=== PATIENT | female | born 1960 | race Caucasian/White ===

== ENCOUNTER → 2017-12-13 15:06 | Outpatient (CLI) | payer MEDICAID, SELFPAY ==
[2017-12-13 17:23] LABS: Absolute Lymphocyte Count 2.51 X10^3/ul (0.83-4.51); Absolute Neutrophil Count 2.4 X10^3/uL (2.0-7.7); Basophil# 0.03 X10^3/uL; Basophil% 0.5 % (0-1); Eosinophil# 0.28 X10^3/uL; Hematocrit 45.1 % (37-47); Hemoglobin 14.6 g/dl (12.0-15.0); Lymphocyte # 2.51 X10^3/ul (4.0); Lymphocyte % 45.1 % (19-41); Mean Corp Hgb Conc 32.4 g/gl (32-36); Mean Corpuscular Hgb 31.3 pg (27.0-32.0); Mean Corpuscular Volume 96.8 fL (81-99); Mean Platelet Vol. 11.8 fl (6.2-12.0); Monocyte# 0.38 X10^3/uL; Monocyte% 6.8 % (0-10); Neutrophil # 2.37 X10^3/uL (2.7-7.7); Neutrophil % 42.6 % (47-70); POSITIVE COUNT NO; POSITIVE DIFFERENTIAL NO; POSITIVE MORPHOLOGY NO; Platelet Count 169 K/mm3 (150-450); RBC Distribution Width CV 13.5 % (11.6-14.6); RBC Distribution Width SD 47.8 fl (35.1-43.9); Red Blood Count 4.66 M/mm3 (4.2-5.4); White Blood Count 5.6 K/mm3 (4.4-11.0)
[2017-12-13 17:58] LABS: ALB/GLOB Ratio 0.6 RATIO (0.9-2.4); AST(SGOT) 50 U/L (15-37); Alanine Aminotransfer ALT/SGPT 31 U/L (13-56); Albumin, Serum 2.9 g/dL (3.2-5.0); Alkaline Phosphatase 211 U/L (45-117); Anion Gap 8 (5-15); BUN 13 mg/dL (7-18); BUN/Creat Ratio 12.4 RATIO (10-20); Calcium,Total 8.8 mg/dL (8.5-10.1); Chloride 101 mmol/L (98-107); Creatinine, Serum 1.05 mg/dL (0.55-1.02); EST Glomerular Filtration Rate 57 mL/min (>60); Est Glom Filt Rate - Afr Amer 69 mL/min (>60); Globulin 5.2 g/dL (2.2-4.2); Glucose 141 mg/dL (74-106); Potassium 3.8 mmol/L (3.5-5.1); Protein, Total 8.1 g/dL (6.4-8.2); Sodium Level 136 mmol/L (136-145); Thyroid Stim Hormone (TSH) 0.67 uIU/mL (0.358-3.74)
[2017-12-13 20:49] LABS: Vitamin D,25 Hydroxy 4.6 ng/mL (19.95-100.01)
[2017-12-15 10:19] LABS: Hep C Antibodies 0.1 s/co ratio (0.0-0.9)
== END ==
PROVIDERS: Visit Provider Family Medicine Geriatric Medicine
DX: E55.9 Vitamin D deficiency, unspecified (principal); R53.83 Other fatigue; Z13.89 Encounter for screening for other disorder
CPT/HCPCS: 36415; 80053; 82306; 84443; 85025; 86803

== ENCOUNTER → 2018-05-15 09:40 | Outpatient (CLI) | payer MEDICAID, SELFPAY ==
--- NOTE | 2018-05-15 10:00 | MRI_ITS ---
STUDY: MRI LEFT ANKLE WITHOUT CONTRAST REASON FOR EXAM: Female, 58 years old. Charcot arthropathy possible AVN TECHNIQUE: Standardized fat and water weighted pulse sequences were obtained in all 3 orthogonal planes. COMPARISON: MRI foot July 14, 2017 FINDINGS: There is skin thickening and soft tissue swelling of the ankle and foot. There is transmetatarsal amputation of the fourth and fifth toes. There is moderate marrow edema of the distal tibia and fibula and talus and calcaneus and navicular and cuboid and cuneiform bones. There are curvilinear regions of subchondral diminished signal of the calcaneus and cuboid with possible avascular necrosis. There is osteochondral fracture of the anterior talus, series 11 image 09/26 Normal posterior tibialis tendon. Normal flexor digitorum longus tendon. Normal flexor hallucis longus tendon. There is a tenosynovitis of the peroneal tendons without a demonstrated tendon tear. Normal tibialis anterior tendon. Normal extensor hallucis longus tendon. Normal extensor digitorum longus tendons. Normal Achilles tendon and teno-osseous insertion. Normal plantar fascia. Normal plantar calcaneal tubercles. Normal intrinsic muscles of the rearfoot. Normal distal tibiofibular syndesmotic ligamentous complex. Normal lateral ligamentous complex. Normal subtalar ligaments and sinus tarsi. Normal deltoid ligamentous complexes. Normal plantar calcaneonavicular (spring) ligament. There is a joint effusion of the tibiotalar articulation with capsular distension. Normal talar dome. There is a joint effusion of the posterior subtalar articulation with capsular distension. There is a joint effusion of the talonavicular articulation with capsular distension. Normal calcaneocuboid articulation. Normal navicular-cuneiform articulations. MRI/Lower Ext Joint Only (Routine) IMPRESSION: Marrow edema at the ankle involving lower leg and hindfoot bones consistent with Charcot arthropathy. Contiguous spread osteomyelitis could be considered in the setting of infection. There is no abscess. There is osteochondral fracture of the talus. 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 Electronically Signed: Vince Jones MD at 17:16 EDT , Service support ,
== END ==
PROVIDERS: Family Provider Family Medicine Geriatric Medicine; PCP Family Medicine Geriatric Medicine; Visit Provider Podiatrist
DX: M87.872 Other osteonecrosis, left ankle (principal); M14.672 Charcot's joint, left ankle and foot
CPT/HCPCS: 73721

== ENCOUNTER → 2018-05-17 10:27 | Outpatient (CLI) | payer MEDICAID, SELFPAY ==
[2018-05-17 12:31] LABS: ALB/GLOB Ratio 0.5 RATIO (0.9-2.4); AST(SGOT) 38 U/L (15-37); Alanine Aminotransfer ALT/SGPT 22 U/L (13-56); Albumin, Serum 2.4 g/dL (3.2-5.0); Alkaline Phosphatase 267 U/L (45-117); Anion Gap 7 (5-15); BUN 10 mg/dL (7-18); BUN/Creat Ratio 11.7 RATIO (10-20); Calcium,Total 8.8 mg/dL (8.5-10.1); Chloride 100 mmol/L (98-107); Creatinine, Serum 0.86 mg/dL (0.55-1.02); EST Glomerular Filtration Rate 72 mL/min (>60); Est Glom Filt Rate - Afr Amer 87 mL/min (>60); Globulin 4.7 g/dL (2.2-4.2); Glucose 285 mg/dL (74-106); Potassium 3.5 mmol/L (3.5-5.1); Protein, Total 7.1 g/dL (6.4-8.2); Sodium Level 137 mmol/L (136-145)
[2018-05-17 12:34] LABS: Erythrocyte Sedimentation Rate 23 mm/hr (0-30)
[2018-05-17 12:37] LABS: Absolute Lymphocyte Count 2.18 X10^3/ul (0.83-4.51); Absolute Neutrophil Count 3.4 X10^3/uL (2.0-7.7); Basophil# 0.05 X10^3/uL; Basophil% 0.8 % (0-1); Eosinophil# 0.35 X10^3/uL; Eosinophils% 5.4 % (0-5); Hematocrit 40.2 % (37-47); Hemoglobin 13.4 g/dl (12.0-15.0); Lymphocyte # 2.18 X10^3/ul (4.0); Lymphocyte % 33.8 % (19-41); Mean Corp Hgb Conc 33.3 g/gl (32-36); Mean Corpuscular Hgb 30.6 pg (27.0-32.0); Mean Corpuscular Volume 91.8 fL (81-99); Mean Platelet Vol. 11.1 fl (6.2-12.0); Monocyte# 0.42 X10^3/uL; Monocyte% 6.5 % (0-10); Neutrophil # 3.44 X10^3/uL (2.7-7.7); Neutrophil % 53.3 % (47-70); POSITIVE COUNT NO; POSITIVE DIFFERENTIAL NO; POSITIVE MORPHOLOGY NO; Platelet Count 187 K/mm3 (150-450); RBC Distribution Width SD 43.5 fl (35.1-43.9); Red Blood Count 4.38 M/mm3 (4.2-5.4); White Blood Count 6.5 K/mm3 (4.4-11.0)
[2018-05-18 08:25] LABS: Vitamin D,25 Hydroxy 5.4 ng/mL (29.95-100.01)
== END ==
PROVIDERS: Family Provider Family Medicine Geriatric Medicine; PCP Family Medicine Geriatric Medicine; Visit Provider Podiatrist
DX: M14.672 Charcot's joint, left ankle and foot (principal)
CPT/HCPCS: 36415; 80053; 82306; 85025; 85652; 86140

== ENCOUNTER 2018-06-11 12:13 | Emergency (ER) | payer MEDICAID, SELFPAY ==
[2018-06-11 12:14] VITALS: BP 157/85; PULSE 88; RESP 18; TEMP 36.3; O2SAT 99; BMI 27.4
--- NOTE | 2018-06-11 12:34 | ED.VISSUMM ---
- ER Visit Summary Date of Service: 06/11/18 Chief Complaint: Left lower extremity pain History of Present Illness: The patient is a 58 F presenting with left lower extremity pain. She states she broke her foot approximately 2 months ago. Prior to that she had toes amputated from her left foot. She sees Dr. Luke. She complains of increasing pain to the medial aspect of the left foot with mild redness. She denies fever. Denies other complaints. Physical Examination: Vitals are stable. Patient is afebrile. Alert no acute distress. HEENT exam is unremarkable. Neck is supple. Lungs are clear and equal bilaterally. Heart is regular rate and rhythm. Abdomen is soft nontender nondistended. Extremities mild medial erythema left foot with mild calf tenderness. s/p 4th and 5th metatarsal amputation. Normal pulse. Skin is warm and dry. No focal neurologic deficit. Remainder of exam is unremarkable. Emergency Department Course and Treatment: Ultrasound of lower extremity shows no evidence of DVT. CBC shows a normal white count, ESR 30. Chemistries show glucose 173. CRP 40. Left foot x-ray shows neuropathic osteoarthropathy. Amputations of the fourth and fifth metatarsals. Heterotopic ossification. Left ankle x-ray shows findings in keeping with a Charcot's deformity of the midfoot with the overlying soft tissue swelling and calcification. She has an appointment with Dr. Luke tomorrow. Discussed with Dr Luke, she will be started on Keflex and will follow up with him at her scheduled appointment tomorrow. Advised to return to ED for worsening complaints. Disposition: Discharge home Impression: Chronic left lower extremity pain, mild left lower extremity cellulitis This note was generated with gAuto dictation software. It may contain incorrect words, spelling, and punctuation that were not noted in review of the chart prior to signing ED Disposition - Plan for ED Patient: Chief Complaint: Lower Extremity Injury Instructions: ED Infec Skin Cellulitis Prescriptions: Cephalexin [Keflex] 500 mg PO Q6 #40 capsule Referrals: Jose Angel Luke DPM [STAFF PHYSICIAN] - Froilan Rosenthal Chi, MD [Primary Care Provider] -
[2018-06-11] MEDS: Morphine 4 MG/ML Syringe IV (12:42)
[2018-06-11] MEDS: proMETHazine 25 MG/ML Syringe 6.25 MG IV (12:43)
[2018-06-11 12:46] LABS: Absolute Lymphocyte Count 1.62 X10^3/ul (0.83-4.51); Basophil# 0.05 X10^3/uL; Basophil% 0.9 % (0-1); Eosinophil# 0.21 X10^3/uL; Hemoglobin 11.8 g/dl (12.0-15.0); Lymphocyte # 1.62 X10^3/ul (4.0); Lymphocyte % 30.6 % (19-41); Mean Corp Hgb Conc 34.7 g/gl (32-36); Mean Corpuscular Hgb 32.2 pg (27.0-32.0); Mean Corpuscular Volume 92.6 fL (81-99); Mean Platelet Vol. 9.6 fl (6.2-12.0); Monocyte# 0.42 X10^3/uL; Monocyte% 7.9 % (0-10); Neutrophil # 2.98 X10^3/uL (2.7-7.7); Neutrophil % 56.2 % (47-70); POSITIVE COUNT NO; POSITIVE DIFFERENTIAL NO; POSITIVE MORPHOLOGY NO; Platelet Count 246 K/mm3 (150-450); RBC Distribution Width CV 12.6 % (11.6-14.6); RBC Distribution Width SD 40.9 fl (35.1-43.9); Red Blood Count 3.67 M/mm3 (4.2-5.4); White Blood Count 5.3 K/mm3 (4.4-11.0)
[2018-06-11 12:53] LABS: Erythrocyte Sedimentation Rate 30 mm/hr (0-30)
[2018-06-11 13:07] LABS: Anion Gap 11 (5-15); BUN 13 mg/dL (7-18); BUN/Creat Ratio 17.8 RATIO (10-20); Calcium,Total 8.3 mg/dL (8.5-10.1); Chloride 105 mmol/L (98-107); Creatinine, Serum 0.73 mg/dL (0.55-1.02); EST Glomerular Filtration Rate 86 mL/min (>60); Est Glom Filt Rate - Afr Amer 105 mL/min (>60); Estimated Creatinine Clearance 70.77 ml/min; Glucose 173 mg/dL (74-106); Potassium 3.9 mmol/L (3.5-5.1); Sodium Level 140 mmol/L (136-145)
[2018-06-11 14:06] VITALS: PULSE 86; RESP 14; O2SAT 97
[2018-06-11] MEDS: oxyCODONE 5 MG Tablet PO (15:29)
--- NOTE | 2018-06-11 15:36 | ED.DEP ---
ED Disposition - Plan for ED Patient: Chief Complaint: Lower Extremity Injury Instructions: ED Infec Skin Cellulitis Prescriptions: Cephalexin [Keflex] 500 mg PO Q6 #40 capsule Referrals: Froilan Rosenthal Chi, MD [Primary Care Provider] - Jose Angel Luke DPM [STAFF PHYSICIAN] -
[2018-06-11] MEDS: Cephalexin 250 MG Capsule 500 MG PO (15:46)
[2018-06-11 15:50] VITALS: PULSE 93; RESP 12; O2SAT 98
== END 2018-06-11 15:51 | disposition home or self-care (01) ==
PROVIDERS: Emergency Provider Emergency Medicine; Family Provider Family Medicine Geriatric Medicine; PCP Family Medicine Geriatric Medicine
DX: L03.116 Cellulitis of left lower limb (principal); B96.89 Other specified bacterial agents as the cause of diseases classified elsewhere; G89.29 Other chronic pain
CPT/HCPCS: 73610; 73630; 80048; 85025; 85652; 86140; 93971; 96374; 96375; 99284; A4216

== ENCOUNTER 2018-06-15 17:24 | Inpatient (IN) | payer MEDICAID, SELFPAY ==
[2018-06-15 17:39] VITALS: BP 153/58; PULSE 85; RESP 18; TEMP 37.2; O2SAT 99; BMI 29.2
[2018-06-15 18:17] VITALS: BMI 29.3
[2018-06-15 18:37] LABS: Erythrocyte Sedimentation Rate 21 mm/hr (0-30)
[2018-06-15] MEDS: Enoxaparin 40 MG/0.4 ML Syringe SC (18:38)
[2018-06-15] MEDS: Glucerna Shake 120 ML LIQUID PO ×2 (18:38→22:05)
[2018-06-15 18:40] LABS: Absolute Lymphocyte Count 2.03 X10^3/ul (0.83-4.51); Absolute Neutrophil Count 1.8 X10^3/uL (2.0-7.7); Basophil# 0.02 X10^3/uL; Basophil% 0.5 % (0-1); Eosinophil# 0.16 X10^3/uL; Eosinophils% 3.7 % (0-5); Hematocrit 35.7 % (37-47); Hemoglobin 11.7 g/dl (12.0-15.0); Lymphocyte # 2.03 X10^3/ul (4.0); Lymphocyte % 46.7 % (19-41); Mean Corp Hgb Conc 32.8 g/gl (32-36); Mean Corpuscular Hgb 30.4 pg (27.0-32.0); Mean Corpuscular Volume 92.7 fL (81-99); Mean Platelet Vol. 9.4 fl (6.2-12.0); Monocyte# 0.32 X10^3/uL; Monocyte% 7.4 % (0-10); Neutrophil # 1.82 X10^3/uL (2.7-7.7); Neutrophil % 41.7 % (47-70); Platelet Count 253 K/mm3 (150-450); RBC Distribution Width SD 43.6 fl (35.1-43.9); Red Blood Count 3.85 M/mm3 (4.2-5.4); White Blood Count 4.4 K/mm3 (4.4-11.0)
[2018-06-15 18:41] LABS: POSITIVE COUNT NO; POSITIVE DIFFERENTIAL NO; POSITIVE MORPHOLOGY NO
--- NOTE | 2018-06-15 18:42 | PCM.HP.STD ---
Problem List (1) Complicated fracture of left calcaneum Status: Acute (2) Complicated fracture of left talus Status: Acute (3) Charcot's joint, left ankle and foot Status: Acute (4) Chronic pain Status: Chronic (5) Phantom pain Status: Chronic (6) Anxiety Status: Chronic (7) Depression Status: Chronic (8) Status post amputation of toe of left foot Status: Chronic Comment: X3 after chronic infection, osteomyelitis and necrotizing fasciitis, surgery per Dr. Luke. (9) Abnormal EKG Status: Chronic Comment: ekg's indicating possible previous inferior infarct (10) HTN (hypertension) Status: Chronic (11) Debility Status: Chronic (12) MRSA (methicillin resistant Staphylococcus aureus) infection Status: Chronic (13) Osteomyelitis of ankle or foot Status: Resolved (14) Diabetic foot infection Status: Resolved (15) Diabetic infected right heel ulcer Status: Resolved (16) Type II diabetes mellitus Status: Chronic Qualifiers: (17) Peripheral neuropathy Status: Chronic Qualifiers: Qualified Code(s): G63 - Polyneuropathy in diseases classified elsewhere (18) Tobacco use disorder Status: Chronic (19) Obesity Status: Inactive History of Present Illness Date of Admission: 06/15/18 Chief Complaint: Direct admit for left ankle fracture The patient is a 58 year old F with history of type 2 diabetes mellitus, complicated with diabetic neuropathy and Charcot joint is being admitted directly on the floor at the request of Dr. Luke. Patient has history of diabetic foot and has partial amputation of left fourth and fifth metatarsal with last admission in November 2016 of left fifth toe gangrene with cellulitis of left foot status post wound debridement with wound culture growing of group B streptococcus and MRSA. After that patient twisted her left ankle at the end of March/early April on walking and fracture of left talus. Patient had immobility boot was advised immobilization but she quit using goat as she had fall on the boot. Patient kept on falling because of weakness of left ankle and not fracture gotten worse as per Dr. Luke. She sustained fracture of calcaneus with old fracture of talus. She came to Monday for left leg cellulitis below knee level and excruciating pain. She was given antibiotic Keflex which she is taking. Left leg cellulitis, erythema is much better but she still has localized pain, 10/10 intensity. Patient also supposed to see ID for suspected cellulitis/deep tissue infection because of excruciating pain but could not see ID as an outpatient. Furthermore, the patient was directly admitted for further management Patient was having fever for 2-3 days prior to Monday but it has resolved after taking antibiotic and cellulitis is much improved. 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 Luke. Abnormal EKG (Chronic) ekg's indicating possible previous inferior infarct HTN (hypertension) (Chronic) Debility (Chronic) MRSA (methicillin resistant Staphylococcus aureus) infection (Chronic) Type II diabetes mellitus (Chronic) Peripheral neuropathy (Chronic) Tobacco use disorder (Chronic) Medical History: Medical History (Last Reviewed 06/05/18 @ 08:58 by Marta Santos) Chronic pain (Chronic) G89.29 Abnormal EKG (Chronic) R94.31 ekg's indicating possible previous inferior infarct HTN (hypertension) (Chronic) I10 Type II diabetes mellitus (Chronic) E11.9 Peripheral neuropathy (Chronic) G62.9 Tobacco use disorder (Chronic) F17.200 Allergies clindamycin [From Cleocin] Allergy (Verified 06/11/18 12:57) Itching ondansetron [From Zofran (as hydrochloride)] Allergy (Verified 06/11/18 12:57) Nausea Sulfa (Sulfonamide Antibiotics) Allergy (Verified 06/11/18 12:57) Itching Home Medications: Ambulatory Orders Medication Instructions Recorded Omeprazole 20 mg PO DAILY 12/16/16 Docusate Sodium [Colace] 100 mg PO DAILY PRN PRN 07/23/17 atorvastatin 40 mg tablet 40 mg PO QHS 06/04/18 insulin glargine (U-100) 100 20 unit SC QHS 06/04/18 unit/mL (3 mL) subcutaneous pen insulin lispro (U-100) 100 unit/mL 6 unit SC TID ml 06/04/18 subcutaneous pen lisinopril 20 mg tablet 20 mg PO DAILY 06/04/18 lorazepam 0.5 mg tablet 0.5 mg PO BID PRN tab 06/04/18 multivitamin-ferrous 1 tab PO DAILY 06/04/18 fumarate-folic acid 18 mg-400 mcg tablet Bupropion HCl [Bupropion HCl Sr] 150 mg PO BID 06/11/18 Chlorthalidone 25 mg PO DAILY 06/11/18 Oxycodone [Oxyir] 5 mg PO TID PRN PRN 06/11/18 proMETHazine tablet [Phenergan 25 mg PO Q6H PRN PRN 06/11/18 tablet] Cephalexin [Keflex] 500 mg PO Q6 06/15/18 Surgical History: Surgical History (Last Reviewed 06/05/18 @ 08:58 by Marta Santos) 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 Luke. Surgical History: cholecystectomy, - - Amputation of the left fourth and fifth toes and metatarsals. Psychiatric History: No pertinent psych hx LANDSCAPE NURSERYMAN History: No pertinent LANDSCAPE NURSERYMAN history Smoking Status: Current every day smoker Tobacco Use: Cigarettes - *Family History Maternal Family History: Family History (Last Reviewed 06/05/18 @ 08:58 by Marta Santos) Mother CAD (coronary artery disease) Father Arthritis Brother Arthritis History Items: Heart Disease, - - mother at age 67 bof heart problems. Paternal Family History: Family History (Last Reviewed 06/05/18 @ 08:58 by Marta Santos) Mother CAD (coronary artery disease) Father Arthritis Brother Arthritis History Items: Heart Disease Review of Systems Constitutional: Denies: Chills, Fever, Weight Change HEENT: Denies: Head Aches, Sinus Congestion, Sinus Drainage Cardiovascular: Denies: Chest Pain, Palpitations Respiratory: Denies: Cough, Shortness of breath at rest, Sputum production Gastrointestinal: Denies: Abdominal Pain, Nausea, Vomiting Genitourinary: Denies: Dysuria Musculoskeletal: Reports: Foot Pain, Joint Pain, Joint stiffness, Joint Tenderness Skin: Denies: Rash, Wounds Neurological: Reports: Balance problems, Incoordination. Denies: Focal weakness, Numbness, Tingling Psychiatric: Denies: Anxiety, Depression, Homicidal Ideations, Suicidal Ideations Hematologic/ Lymphatic: Denies: Easy Bruising, Easy Bleeding VTE Information - Inpt Only VTE Present on Admission: No VTE Mechan Device Prophylaxis: None VTE Pharm Prophylaxis ordered?: Yes Patient Problems: Active and Suspected Problems (Last Reviewed 06/05/18 @ 08:58 by Marta Santos) Complicated fracture of left calcaneum (Acute) Complicated fracture of left talus (Acute) Charcot's joint, left ankle and foot (Acute) - Physical Exam General: Alert, Oriented x3, Cooperative HEENT: Atraumatic, PERRLA, EOMI, Normocephalic Oral: Moist Mucosa Neck: Supple, No JVD, Negative Carotid Bruits Lungs: Clear to auscultation, Normal air movement Cardiovascular: Regular rate, Regular Rhythm, Normal S1, Normal S2, No murmurs Abdomen: Bowel Sounds Present, Soft, Non Tender Extremities: Capillary Refill Less than 3 Seconds, Edema - Edema of left ankle and foot Skin: No rashes, No breakdown, - - Erythematous rash below left knee has improved. No increased temperature or ulcers Musculoskeletal: Arthritic Changes, Muscle Wasting, Tenderness - Tenderness of left ankle and foot. It is covered with Ata wrap bandage. Neurological: Cranial nerves II-XII grossly intact Psych/Mental Status: Normal Affect, Appropriate Vital Signs Temp Pulse Resp BP Pulse Ox 98.9 F 85 18 153/58 H 99 06/15/18 17:39 06/15/18 17:39 06/15/18 17:39 06/15/18 17:39 06/15/18 17:39 Oxygen Delivery Method Room Air Weight: 176 lb 2.389 oz Body Mass Index (BMI) 29.2 Laboratory Tests Past 24 Hrs 06/15/18 06/15/18 06/15/18 18:14 18:14 18:14 WBC 4.4 RBC 3.85 L Hgb 11.7 L Hct 35.7 L MCV 92.7 MCH 30.4 MCHC 32.8 RDW 13.0 RDW Differential 43.6 Plt Count 253 MPV 9.4 Immature Gran % (Auto) 0.000 Neut % (Auto) 41.7 L Lymph % (Auto) 46.7 H [place] % (Auto) 7.4 Eos % (Auto) 3.7 Baso % (Auto) 0.5 Absolute Neuts (auto) 1.8 L Absolute Lymphs (auto) 2.03 Total Counted Not Reportable ESR 21 Sodium Potassium Chloride Carbon Dioxide Anion Gap BUN Creatinine Est GFR (MDRD) Af Amer Est GFR (MDRD) Non-Af BUN/Creatinine Ratio Glucose Calcium Total Bilirubin AST ALT Alkaline Phosphatase C-React Prot Ext Range Pending Total Protein Albumin 06/15/18 18:14 WBC RBC Hgb Hct MCV MCH MCHC RDW RDW Differential Plt Count MPV Immature Gran % (Auto) Neut % (Auto) Lymph % (Auto) [place] % (Auto) Eos % (Auto) Baso % (Auto) Absolute Neuts (auto) Absolute Lymphs (auto) Total Counted ESR Sodium Pending Potassium Pending Chloride Pending Carbon Dioxide Pending Anion Gap Pending BUN Pending Creatinine Pending Est GFR (MDRD) Af Amer Pending Est GFR (MDRD) Non-Af Pending BUN/Creatinine Ratio Pending Glucose Pending Calcium Pending Total Bilirubin Pending AST Pending ALT Pending Alkaline Phosphatase Pending C-React Prot Ext Range Total Protein Pending Albumin Pending Assessment/Plan All Active Problems (Last Reviewed 06/05/18 @ 08:58 by Marta Santos) Complicated fracture of left calcaneum (Acute) Complicated fracture of left talus (Acute) Charcot's joint, left ankle and foot (Acute) Osteomyelitis of ankle or foot (Resolved) Diabetic foot infection (Resolved) Diabetic infected right heel ulcer (Resolved) The patient is a 58 year old F with history of type 2 diabetes mellitus, complicated with diabetic neuropathy and Charcot joint is being admitted directly on the floor at the request of Java Developer With Security Clearance Dr. Luke. 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 The patient twisted her left ankle at the end of March/early April 2018 on walking and fracture of left talus. Patient had immobility boot was advised immobilization but she quit using boot as she had fall on that. Patient kept on falling because of weakness of left ankle and not fracture gotten worse as per Dr. Luke. She sustained fragmented fracture of calcaneus with old fracture of talus. She came to Monday for left leg cellulitis below knee level and excruciating pain. She was given antibiotic Keflex which she is taking and was no sent home. Left leg cellulitis, erythema is much better but she still has localized pain, 10/10 intensity. Patient also supposed to see ID for suspected cellulitis/deep tissue infection because of excruciating pain but could not see ID as an outpatient. Furthermore, the patient was directly admitted for further management of pain, complicated fracture with left ankle Charcot joint Patient was having fever for 2-3 days prior to Monday but it has resolved after taking antibiotic and cellulitis is much improved. 1. Closed, complicated fracture of left talus and calcaneum with left ankle Charcot joint and diabetic neuropathy: [facility] Pain control. Nonweightbearing. PT and OT and egg caser consult for possible SNF placement for continued weightbearing and monitor fracture healing. Left ankle and foot x-ray is ordered. Dr. Luke is being consulted. Basic labs CBC, CMP, ESR and CRP ordered. Albumin is 2.0. Client phosphatase 246 probably of bone origin. K3.2. Mild hypokalemia: Potassium being replaced. 2. Recent, resolving left leg cellulitis below knee to ankle: Patient started on Keflex 500 mg every 6 hourly on Monday in ER. Patient took 4 days will need to take 1 more day. ID consult for concern of deep infection and further opinion regarding antibiotic. No leukocytosis. 3. Complicated diabetes mellitus type 2 with diabetic neuropathy with Charcot joint: Blood sugar in [facility] is 193. A1c tomorrow a.m. Accu-Cheks before meals and at bedtime and cover with NovoLog sliding scale. Patient is on Lantus 20 units subcu at bedtime and will continue it and adjust according to glucose checks. 4. Other chronic comorbidities include hypertension, history of previous osteomyelitis of left foot and ankle, peripheral neuropathy, tobacco use disorder, obesity and anxiety or depression: Home medication reconciliation done. Laboratory Results 06/15/18 18:14: ESR 21 06/15/18 18:14: C-React Prot Ext Range Pending 06/15/18 18:14: WBC 4.4, RBC 3.85 L, Hgb 11.7 L, Hct 35.7 L, MCV 92.7, MCH 30.4, MCHC 32.8, RDW 13.0, RDW Differential 43.6, Plt Count 253, MPV 9.4, Immature Gran % (Auto) 0.000, Neut % (Auto) 41.7 L, Lymph % (Auto) 46.7 H, [place] % (Auto) 7.4, Eos % (Auto) 3.7, Baso % (Auto) 0.5, Absolute Neuts (auto) 1.8 L, Absolute Lymphs (auto) 2.03, Total Counted Not Reportable 06/15/18 18:14: Sodium 144, Potassium 3.2 L, Chloride 107, Carbon Dioxide 27.0, Anion Gap 10, BUN 12, Creatinine 0.85, Estim Creat Clear Calc 63.33, Est GFR (MDRD) Af Amer 87, Est GFR (MDRD) Non-Af 72, BUN/Creatinine Ratio 14.1, Glucose 193 H, Calcium 8.2 L, Total Bilirubin 0.40, AST 44 H, ALT 26, Alkaline Phosphatase 246 H, Total Protein 6.4, Albumin 2.0 L, Globulin 4.4 H, Albumin/Globulin Ratio 0.5 L Total time spent in [id number] encounter with history taking, physical exam, labs review, review of imaging and discussion of assessment and plan with the patient: 50 minutes This note was generated with [employer] dictation software. Every effort was made to ensure accuracy, however computerized brick extruder operator mistakes may persist. Code Visit Inpatient E&M: 82539 Init Hosp L3
[2018-06-15 18:59] LABS: ALB/GLOB Ratio 0.5 RATIO (0.9-2.4); AST(SGOT) 44 U/L (15-37); Alanine Aminotransfer ALT/SGPT 26 U/L (13-56); Alkaline Phosphatase 246 U/L (45-117); Anion Gap 10 (5-15); BUN 12 mg/dL (7-18); BUN/Creat Ratio 14.1 RATIO (10-20); Calcium,Total 8.2 mg/dL (8.5-10.1); Chloride 107 mmol/L (98-107); Creatinine, Serum 0.85 mg/dL (0.55-1.02); EST Glomerular Filtration Rate 72 mL/min (>60); Est Glom Filt Rate - Afr Amer 87 mL/min (>60); Estimated Creatinine Clearance 63.33 ml/min; Globulin 4.4 g/dL (2.2-4.2); Glucose 193 mg/dL (74-106); Potassium 3.2 mmol/L (3.5-5.1); Protein, Total 6.4 g/dL (6.4-8.2); Sodium Level 144 mmol/L (136-145)
[2018-06-15] MEDS: oxyCODONE 5 MG Tablet PO (21:15)
[2018-06-15] MEDS: LORazepam 0.5 MG Tablet PO (21:16)
[2018-06-15 21:22] VITALS: BP 149/77; PULSE 81; RESP 16; TEMP 37.2; O2SAT 97
[2018-06-15] MEDS: buPROPion (SR) 150 MG Tablet.SA PO (22:04)
[2018-06-15] MEDS: Atorvastatin Calcium 40 MG Tablet PO (22:04)
[2018-06-16] MEDS: Cephalexin 500 MG Capsule PO ×4 (00:50→16:37)
[2018-06-16] MEDS: Acetaminophen 325 MG Tablet 650 MG PO ×2 (00:50→08:27)
[2018-06-16 01:21] LABS: Bedside Glucose 194 mg/dL (70-110)
[2018-06-16 02:56] VITALS: BP 169/72; PULSE 82; RESP 18; TEMP 36.7; O2SAT 99
[2018-06-16] MEDS: proMETHazine 25 MG Tablet PO (05:40)
[2018-06-16] MEDS: oxyCODONE 5 MG Tablet PO (05:44)
[2018-06-16 07:32] LABS: Magnesium 1.6 mg/dL (1.6-2.6); Potassium 3.6 mmol/L (3.5-5.1)
[2018-06-16 07:57] LABS: Hemoglobin A1c 7.2 % (4.2-6.3)
[2018-06-16] MEDS: LORazepam 0.5 MG Tablet PO ×2 (08:27→19:34)
[2018-06-16] MEDS: Chlorthalidone 50 MG Tablet 25 MG PO (08:29)
[2018-06-16] MEDS: Pantoprazole Sodium 20 MG Tablet PO (08:29)
[2018-06-16] MEDS: buPROPion (SR) 150 MG Tablet.SA PO ×2 (08:29→21:26)
[2018-06-16] MEDS: Multivitamins,Ther W-Minerals Tablet 1 TABLET PO (08:29)
[2018-06-16] MEDS: Enoxaparin 40 MG/0.4 ML Syringe SC (08:30)
[2018-06-16] MEDS: Glucerna Shake 120 ML LIQUID PO (08:30)
[2018-06-16] MEDS: Insulin Lispro 100 UNIT/ML INSULN.PEN 8 UNIT SC ×3 (08:34→16:38)
[2018-06-16 08:42] VITALS: BP 142/74; PULSE 81; RESP 18; TEMP 36.3; O2SAT 96
[2018-06-16 08:46] LABS: Bedside Glucose 95 mg/dL (70-110)
--- NOTE | 2018-06-16 09:13 | PCM.PROGNOTE ---
Patient Problems: Active and Suspected Problems (Last Reviewed 06/05/18 @ 08:58 by Marta Santos) Complicated fracture of left calcaneum (Acute) Complicated fracture of left talus (Acute) Charcot's joint, left ankle and foot (Acute) Subjective: This 58 year old female patient was consulted to podiatry after being directly admitted yesterday at the request of Dr. Luke. The patient has a history of charcot foot/ankle on the left side and had left 4th and 5th ray amputation that has since healed over a year and a half ago. Patient had strict non weight bearing orders by Dr. Luke, and the patient still decided to walk on the foot/ankle. She was seen earlier this week in the ER where she was discharged with prescription for keflex that she did well with. Patient is resting comfortably in her bed this morning. She says she is feeling well. She denies any feelings of nausea, vomiting, fever, or chills. - Physical Exam General: Alert, Oriented x3, Cooperative, No apparent distress Extremities: No cyanosis, Capillary Refill Less than 3 Seconds - to distal digits 1-3 of the left foot, No Calf Tenderness - negative kaylee and ramos sign, Diminished Peripheral Pulses, Edema - slight lower extremity edema to the left Skin: - - No erythema or significant increase in warmth was appreciated to left lower leg/ankle/or foot during dressing change. Musculoskeletal: No Tenderness to Palpation of Joints or Extremities, - - left charcot deformity as well as previous left 4th and 5th ray amputation Neurological: - - epicritic sensation grossly absent to lower extremity Psych/Mental Status: Normal Affect, Appropriate Vital Signs Temp Pulse Resp BP Pulse Ox 97.4 F L 81 18 142/74 H 96 06/16/18 08:42 06/16/18 08:42 06/16/18 08:42 06/16/18 08:42 06/16/18 08:42 Oxygen Delivery Method Room Air Weight: 79.9 kg Body Mass Index (BMI) 29.2 Intake and Output for Last 24 Hours 06/14/18 06/15/18 06/16/18 23:59 23:59 23:59 Intake Total 800 / 800 Balance 800 / 800 Laboratory Tests Past 24 Hrs 06/15/18 06/15/18 06/15/18 18:14 18:14 18:14 WBC 4.4 RBC 3.85 L Hgb 11.7 L Hct 35.7 L MCV 92.7 MCH 30.4 MCHC 32.8 RDW 13.0 RDW Differential 43.6 Plt Count 253 MPV 9.4 Immature Gran % (Auto) 0.000 Neut % (Auto) 41.7 L Lymph % (Auto) 46.7 H [place] % (Auto) 7.4 Eos % (Auto) 3.7 Baso % (Auto) 0.5 Absolute Neuts (auto) 1.8 L Absolute Lymphs (auto) 2.03 Total Counted Not Reportable ESR 21 Sodium Potassium Chloride Carbon Dioxide Anion Gap BUN Creatinine Estim Creat Clear Calc Est GFR (MDRD) Af Amer Est GFR (MDRD) Non-Af BUN/Creatinine Ratio Glucose Hemoglobin A1c Calcium Magnesium Total Bilirubin AST ALT Alkaline Phosphatase C-React Prot Ext Range 10.20 H Total Protein Albumin Globulin Albumin/Globulin Ratio 06/15/18 06/16/18 06/16/18 18:14 06:19 06:19 WBC RBC Hgb Hct MCV MCH MCHC RDW RDW Differential Plt Count MPV Immature Gran % (Auto) Neut % (Auto) Lymph % (Auto) [place] % (Auto) Eos % (Auto) Baso % (Auto) Absolute Neuts (auto) Absolute Lymphs (auto) Total Counted ESR Sodium 144 Potassium 3.2 L 3.6 Chloride 107 Carbon Dioxide 27.0 Anion Gap 10 BUN 12 Creatinine 0.85 Estim Creat Clear Calc 63.33 Est GFR (MDRD) Af Amer 87 Est GFR (MDRD) Non-Af 72 BUN/Creatinine Ratio 14.1 Glucose 193 H Hemoglobin A1c 7.2 H Calcium 8.2 L Magnesium 1.6 Total Bilirubin 0.40 AST 44 H ALT 26 Alkaline Phosphatase 246 H C-React Prot Ext Range Total Protein 6.4 Albumin 2.0 L Globulin 4.4 H Albumin/Globulin Ratio 0.5 L POC Glucose 06/16/18 06/15/18 07:09 21:59 POC Glucose 95 194 H Medical Necessity - Tobacco Use Smoking Status: Current every day smoker Tobacco Use: Cigarettes Assessment/Plan All Active Problems (Last Reviewed 06/05/18 @ 08:58 by Marta Santos) Complicated fracture of left calcaneum (Acute) Complicated fracture of left talus (Acute) Charcot's joint, left ankle and foot (Acute) Osteomyelitis of ankle or foot (Resolved) Diabetic foot infection (Resolved) Diabetic infected right heel ulcer (Resolved) Charcot ankle/foot left DM with neuropathy Patient was carefully examined and evaluated bedside this morning. Her vital signs are currently stable. Her WBC is 4.4. ESR is 21 and CRP is 10.2. Hemoglobin A1c is 7.2. Foot and ankle x-rays taken of the left side and were read by radiologist as showing osseous destruction of the midfoot, particularly the anterior talus and calcaneus, suggesting charcot joint. No erythema or cellulitis was appreciated during dressing change today. Dressing change was performed consisting of webril, unna boot, and berenice bandages. Patient has CAM walker boot with her. She is not to ambulate directly on the left foot. She understands this. Patient will be seen by infectious disease at the request of Dr. Luke on Monday. Plan for possible transfer of patient to SNF. PT/OT/problem manager already on consult. Medical management and DVT prophylaxis per primary team is appreciated. Podiatry will continue to follow this patient while in house. Contact with any questions.
--- NOTE | 2018-06-16 09:28 | PCM.PN.HOSP ---
Patient Problems: Active and Suspected Problems (Last Reviewed 06/05/18 @ 08:58 by Marta Santos) Complicated fracture of left calcaneum (Acute) Complicated fracture of left talus (Acute) Charcot's joint, left ankle and foot (Acute) Subjective: Patient complain of left ankle pain, predominantly on the medial aspect. No change in pain. Left foot and ankle x-rays reviewed and suggestive of Charcot joint. Discussed with title lawyer, Dr. Melo Vitals/I&O's: Vital Signs Temp Pulse Resp BP Pulse Ox 97.4 F L 81 18 142/74 H 96 06/16/18 08:42 06/16/18 08:42 06/16/18 08:42 06/16/18 08:42 06/16/18 08:42 Oxygen Delivery Method Room Air Weight: 176 lb 2.389 oz Body Mass Index (BMI) 29.2 Intake and Output for Last 24 Hours 06/14/18 06/15/18 06/16/18 23:59 23:59 23:59 Intake Total 800 / 800 Balance 800 / 800 General: Alert, Oriented x3, Cooperative HEENT: Atraumatic, PERRLA, EOMI, Normocephalic Neck: Supple, No JVD, Negative Carotid Bruits Lungs: Clear to auscultation, Normal air movement, No rhonchi, No wheeze, No rales Cardiovascular: Regular rate, Regular Rhythm, Normal S1, Normal S2, No murmurs Abdomen: Bowel Sounds Present, Soft, Non Tender, Non-Distended Extremities: Capillary Refill Less than 3 Seconds, Edema Skin: No rashes, No breakdown Musculoskeletal: Arthritic Changes, Muscle Wasting, Tenderness - Left stephanie at medial aspect Neurological: Cranial nerves II-XII grossly intact Psych/Mental Status: Normal Affect, Appropriate Laboratory Results 06/15/18 18:14: ESR 21 06/15/18 18:14: C-React Prot Ext Range 10.20 H 06/15/18 18:14: WBC 4.4, RBC 3.85 L, Hgb 11.7 L, Hct 35.7 L, MCV 92.7, MCH 30.4, MCHC 32.8, RDW 13.0, RDW Differential 43.6, Plt Count 253, MPV 9.4, Immature Gran % (Auto) 0.000, Neut % (Auto) 41.7 L, Lymph % (Auto) 46.7 H, Crowley % (Auto) 7.4, Eos % (Auto) 3.7, Baso % (Auto) 0.5, Absolute Neuts (auto) 1.8 L, Absolute Lymphs (auto) 2.03, Total Counted Not Reportable 06/15/18 18:14: Sodium 144, Potassium 3.2 L, Chloride 107, Carbon Dioxide 27.0, Anion Gap 10, BUN 12, Creatinine 0.85, Estim Creat Clear Calc 63.33, Est GFR (MDRD) Af Amer 87, Est GFR (MDRD) Non-Af 72, BUN/Creatinine Ratio 14.1, Glucose 193 H, Calcium 8.2 L, Total Bilirubin 0.40, AST 44 H, ALT 26, Alkaline Phosphatase 246 H, Total Protein 6.4, Albumin 2.0 L, Globulin 4.4 H, Albumin/Globulin Ratio 0.5 L 06/15/18 21:59: POC Glucose 194 H 06/16/18 06:19: Potassium 3.6, Magnesium 1.6 06/16/18 06:19: Hemoglobin A1c 7.2 H 06/16/18 07:09: POC Glucose 95 Current Medications Acetaminophen (Tylenol) 650 mg PO Q6H PRN PRN PRN Reason: PAIN Last Admin: 06/16/18 08:27 Dose: 650 mg Atorvastatin Calcium (Lipitor) 40 mg PO QHS [facility] Last Admin: 06/15/18 22:04 Dose: 40 mg Bupropion HCl (Wellbutrin Sr (150mg Tablets)) 150 mg PO BID [facility] Last Admin: 06/16/18 08:29 Dose: 150 mg Cephalexin (Keflex) 500 mg PO Q6 [facility] Stop: 06/16/18 18:01 Last Admin: 06/16/18 05:47 Dose: 500 mg Chlorthalidone (Hygroton) 25 mg PO DAILY [facility] Last Admin: 06/16/18 08:29 Dose: 25 mg Dextrose (D50w Syringe) 0 gm IV X1 PRN; Protocol PRN Reason: Hypoglycemia Docusate Sodium (Colace) 100 mg PO BID PRN PRN PRN Reason: Constipation Enoxaparin Sodium (Lovenox) 40 mg SC DAILY@1000 I[facility] Last Admin: 06/16/18 08:30 Dose: 40 mg Ergocalciferol (Vitamin D) 50,000 unit PO Q7D [facility] Glucagon () 1 mg IM .X1 PRN PRN Reason: Hypoglycemia Insulin Glargine (Lantus (Bkc)) 20 units SC QHS [facility] Last Admin: 06/15/18 22:04 Dose: 20 units Insulin Human Lispro (Humalog Kwikpen (Bkc)) 8 unit SC TIDCM [facility] PRN Reason: Protocol Last Admin: 06/16/18 08:34 Dose: 8 units Lisinopril (Zestril) 20 mg PO DAILY [facility] Lorazepam (Ativan) 0.5 mg PO BID PRN PRN Reason: ANXIETY Last Admin: 06/16/18 08:27 Dose: 0.5 mg Magnesium Hydroxide (Milk Of Magnesia) 30 ml PO DAILY PRN PRN PRN Reason: Constipation Multivitamins/Minerals (Multivitamin With Minerals) 1 tablet PO DAILY@0800 [facility] Last Admin: 06/16/18 08:29 Dose: 1 tablet Nutritional Formula (Lactose Free) (Glucerna Shake) 120 ml PO 4X/DAY [facility] Last Admin: 06/16/18 08:30 Dose: 120 ml Oxycodone HCl (Oxyir) 5 mg PO TID PRN PRN PRN Reason: PAIN Last Admin: 06/16/18 05:44 Dose: 5 mg Pantoprazole Sodium (Protonix) 20 mg PO DAILY [facility] Last Admin: 06/16/18 08:29 Dose: 20 mg Potassium Chloride (K-Dur) 20 meq PO DAILYCM [facility] Promethazine HCl (Phenergan Tablet) 25 mg PO Q6H PRN PRN PRN Reason: NAUSEA Last Admin: 06/16/18 05:40 Dose: 25 mg Sodium Chloride () 5 - 30 ml IV UD PRN PRN Reason: SALINE FLUSH Medical Necessity - Tobacco Use Smoking Status: Current every day smoker Tobacco Use: Cigarettes Assessment/Plan All Active Problems (Last Reviewed 06/05/18 @ 08:58 by Marta Santos) Complicated fracture of left calcaneum (Acute) Complicated fracture of left talus (Acute) Charcot's joint, left ankle and foot (Acute) Osteomyelitis of ankle or foot (Resolved) Diabetic foot infection (Resolved) Diabetic infected right heel ulcer (Resolved) The patient is a 58 year old F with history of type 2 diabetes mellitus, complicated with diabetic neuropathy and Charcot joint is being admitted directly on the floor at the request of Lease Attendant Dr. Luke. 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 The patient twisted her left ankle at the end of March/early April 2018 on walking and fracture of left talus. Patient had immobility boot was advised immobilization but she quit using boot as she had fall on that. Patient kept on falling because of weakness of left ankle and not fracture gotten worse as per Dr. Luke. She sustained fragmented fracture of calcaneus with old fracture of talus. She came to Monday for left leg cellulitis below knee level and excruciating pain. She was given antibiotic Keflex which she is taking and was no sent home. Left leg cellulitis, erythema is much better but she still has localized pain, 10/10 intensity. Patient also supposed to see ID for suspected cellulitis/deep tissue infection because of excruciating pain but could not see ID as an outpatient. Furthermore, the patient was directly admitted for further management of pain, complicated fracture with left ankle Charcot joint Patient was having fever for 2-3 days prior to Monday but it has resolved after taking antibiotic and cellulitis is much improved. 1. Closed, complicated fracture of left talus and calcaneum with left ankle Charcot joint and diabetic neuropathy: Patient is admitted directly on [facility] floor. Pain control. Nonweightbearing. PT and OT and social work case manager consult for possible SNF placement for continued weightbearing and monitor fracture healing. Albumin is 2.0. Alkaline phosphatase 246 probably of bone origin. Repeat left ankle and foot x-ray done and shows osseous destruction of the midfoot particularly the anterior talus and calcaneum suggesting Charcot joint. Diffuse soft tissue swelling. No evidence of acute fracture or dislocation is reported. Mild hypokalemia: Potassium being replaced. Potassium being corrected repeat potassium was 3.6. Need maintenance potassium 2. Recent, resolving left leg cellulitis below knee to ankle: Patient started on Keflex 500 mg every 6 hourly on Monday in ER. Patient will complete antibiotic today. ID consult for concern of deep infection and further opinion regarding antibiotic but not available until Monday. No leukocytosis. 3. Complicated diabetes mellitus type 2 with diabetic neuropathy with Charcot joint: Blood sugar in BMP is 193. Blood sugar is controlled. A1c 7.2. Accu-Cheks before meals and at bedtime and cover with NovoLog sliding scale. Lantus dose decreased to 15 units subcu at bedtime and will continue it and adjust according to glucose checks. Hypovitaminosis D: Patient vitamin D was 5 on May 17, 2018 had 1 vitamin D 50,000 units dose. Started on vitamin D therapeutic dose 50,000 units q. weekly. 4. Other chronic comorbidities include hypertension, history of previous osteomyelitis of left foot and ankle, peripheral neuropathy, tobacco use disorder, obesity and anxiety or depression: Home medication reconciliation done. Laboratory Results 06/15/18 18:14: ESR 21 06/15/18 18:14: C-React Prot Ext Range Pending 06/15/18 18:14: WBC 4.4, RBC 3.85 L, Hgb 11.7 L, Hct 35.7 L, MCV 92.7, MCH 30.4, MCHC 32.8, RDW 13.0, RDW Differential 43.6, Plt Count 253, MPV 9.4, Immature Gran % (Auto) 0.000, Neut % (Auto) 41.7 L, Lymph % (Auto) 46.7 H, Crowley % (Auto) 7.4, Eos % (Auto) 3.7, Baso % (Auto) 0.5, Absolute Neuts (auto) 1.8 L, Absolute Lymphs (auto) 2.03, Total Counted Not Reportable 06/15/18 18:14: Sodium 144, Potassium 3.2 L, Chloride 107, Carbon Dioxide 27.0, Anion Gap 10, BUN 12, Creatinine 0.85, Estim Creat Clear Calc 63.33, Est GFR (MDRD) Af Amer 87, Est GFR (MDRD) Non-Af 72, BUN/Creatinine Ratio 14.1, Glucose 193 H, Calcium 8.2 L, Total Bilirubin 0.40, AST 44 H, ALT 26, Alkaline Phosphatase 246 H, Total Protein 6.4, Albumin 2.0 L, Globulin 4.4 H, Albumin/Globulin Ratio 0.5 L Clinical Impression(s) from Imaging Studies Ankle X-Ray 06/15/18 19:30 IMPRESSION: Findings as above suggestive of Charcot joint Electronically Signed: Clyde Jones DO at 19:45 EDT Tel , Service support , This note was generated with [employer] dictation software. Every effort was made to ensure accuracy, however computerized production planner scheduler mistakes may persist. Code Visit Inpatient E&M: 86128 Subs Hosp L3
[2018-06-16] MEDS: Meloxicam 7.5 MG Tablet PO (11:51)
[2018-06-16] MEDS: Lisinopril 20 MG Tablet PO (11:51)
--- NOTE | 2018-06-16 11:52 | CASEMGMT ---
Social Work Assessment Referral Date: 06/16/2018 Date of Assessment: 06/16/2018 Reason for consult: ankle fracture, possible SNF placement Informant: admitting Personal Status: SW met with pt to complete initial assessment. SW introduced self and role at [facility]. Pt is alert and orientated x4. Pt states that she lives in a one story home with her dog with no steps to enter home. DME include cane, walker, and wheelchair. Pt states that she has family and friends nearby and her main support is Beverly who is her friend. Pt states that she was previously independent with ADLs. Pt states that she will need rehabilitation at SNF before returning home. SW provided pt with list of in network SNF. Pt states that she has been to [place] in the past and would be ok with returning there or with going to [facility]. SW explained that this worker will check back with pt on Monday as referral won't be looked at until Monday when admissions return to SNF. Pt states understanding. Pt denied additional needs or concerns at this time. Substance Abuse Hx: Pt states that she smokes Cigarettes and smokes about 3 cigarettes a day. Pt states that she smokes more when she is in a lot of pain. Pt denied additional substance abuse hx. Mental Health Hx: Pt denied SW will follow up with pt on Monday to confirm SNF placement. SW will fax referrals on Monday to pt's selected choice for SNF. Plan: SNF pending acceptance and pre-cert Roberta Rojas BARREL POLISHER, [employer] OFFICER
[2018-06-16] MEDS: oxyCODONE 5 MG Tablet 10 MG PO ×2 (11:55→18:18)
[2018-06-16 12:06] LABS: Bedside Glucose 145 mg/dL (70-110)
[2018-06-16 15:45] VITALS: BP 140/72; PULSE 80; RESP 16; TEMP 36.8; O2SAT 94
[2018-06-16 17:36] LABS: Bedside Glucose 130 mg/dL (70-110)
[2018-06-16 21:18] VITALS: BP 144/72; PULSE 86; RESP 18; TEMP 37.1; O2SAT 99
[2018-06-16] MEDS: Atorvastatin Calcium 40 MG Tablet PO (21:26)
[2018-06-16] MEDS: Zolpidem Tartrate 5 MG Tablet PO (21:26)
[2018-06-16 22:40] LABS: Bedside Glucose 223 mg/dL (70-110)
[2018-06-17] MEDS: Acetaminophen 325 MG Tablet 650 MG PO ×2 (01:57→19:44)
[2018-06-17] MEDS: oxyCODONE 5 MG Tablet 10 MG PO ×4 (01:58→22:26)
[2018-06-17 02:00] VITALS: BP 150/57; PULSE 82; RESP 18; TEMP 37.1; O2SAT 98
[2018-06-17 06:23] LABS: Cholesterol 146 mg/dL (200); High Density Lipoprotein 31 mg/dL; Triglycerides 172 mg/dL; Very Low Density Lipoprotein 34 mg/dL (5-40)
[2018-06-17 10:13] VITALS: BP 141/74; PULSE 79; RESP 16; TEMP 37; O2SAT 97
[2018-06-17] MEDS: Multivitamins,Ther W-Minerals Tablet 1 TABLET PO (10:23)
[2018-06-17] MEDS: Pantoprazole Sodium 20 MG Tablet PO (10:23)
[2018-06-17] MEDS: buPROPion (SR) 150 MG Tablet.SA PO ×2 (10:24→21:10)
[2018-06-17] MEDS: Enoxaparin 40 MG/0.4 ML Syringe SC (10:24)
[2018-06-17] MEDS: Chlorthalidone 50 MG Tablet 25 MG PO (10:24)
[2018-06-17] MEDS: Meloxicam 7.5 MG Tablet PO ×2 (10:25→12:37)
[2018-06-17] MEDS: Lisinopril 20 MG Tablet PO (10:25)
[2018-06-17] MEDS: Insulin Lispro 100 UNIT/ML INSULN.PEN 8 UNIT SC ×3 (10:40→16:26)
--- NOTE | 2018-06-17 10:42 | PCM.PN.HOSP ---
Patient Problems: Active and Suspected Problems (Last Reviewed 06/05/18 @ 08:58 by Marta Santos) Complicated fracture of left calcaneum (Acute) Complicated fracture of left talus (Acute) Charcot's joint, left ankle and foot (Acute) Subjective: Patient pain is better controlled than yesterday controlled. No fever or chills. Vitals/I&O's: Vital Signs Temp Pulse Resp BP Pulse Ox 98.6 F 79 16 141/74 H 97 06/17/18 10:13 06/17/18 10:13 06/17/18 10:13 06/17/18 10:13 06/17/18 10:13 Oxygen Delivery Method Room Air Weight: 176 lb 2.389 oz Body Mass Index (BMI) 29.2 Intake and Output for Last 24 Hours 06/15/18 06/16/18 06/17/18 23:59 23:59 23:59 Intake Total 1760 / 1760 240 / 240 Output Total 650 / 650 500 / 500 Balance 1110 / 1110 -260 / -260 General: Alert, Oriented x3, Cooperative HEENT: Atraumatic, PERRLA, EOMI, Normocephalic Neck: Supple, No JVD, Negative Carotid Bruits Lungs: Clear to auscultation, Normal air movement Cardiovascular: Regular rate, Regular Rhythm, Normal S1, Normal S2, No murmurs Abdomen: Bowel Sounds Present, Soft, Non Tender, Non-Distended Extremities: No edema, Capillary Refill Less than 3 Seconds Skin: No rashes, No breakdown Musculoskeletal: Arthritic Changes, Muscle Wasting, Tenderness - Medial aspect of left ankle. Left leg and left ankle has Ata wrap bandage. Neurological: Cranial nerves II-XII grossly intact Psych/Mental Status: Normal Affect, Appropriate Laboratory Results 06/16/18 11:50: POC Glucose 145 H 06/16/18 16:36: POC Glucose 130 H 06/16/18 21:24: POC Glucose 223 H 06/17/18 05:15: Triglycerides 172, Cholesterol 146, LDL Cholesterol 81, VLDL Cholesterol 34, HDL Cholesterol 31 L Current Medications Acetaminophen (Tylenol) 650 mg PO Q6H PRN PRN PRN Reason: PAIN Last Admin: 06/17/18 01:57 Dose: 650 mg Atorvastatin Calcium (Lipitor) 40 mg PO QHS I[facility] Last Admin: 06/16/18 21:26 Dose: 40 mg Bupropion HCl (Wellbutrin Sr (150mg Tablets)) 150 mg PO BID [facility] Last Admin: 06/17/18 10:24 Dose: 150 mg Chlorthalidone (Hygroton) 25 mg PO DAILY [facility] Last Admin: 06/17/18 10:24 Dose: 25 mg Dextrose (D50w Syringe) 0 gm IV X1 PRN; Protocol PRN Reason: Hypoglycemia Docusate Sodium (Colace) 100 mg PO BID PRN PRN PRN Reason: Constipation Enoxaparin Sodium (Lovenox) 40 mg SC DAILY@1000 [facility] Last Admin: 06/17/18 10:24 Dose: 40 mg Ergocalciferol (Vitamin D) 50,000 unit PO Q7D [facility] Last Admin: 06/16/18 11:51 Dose: 50,000 unit Glucagon () 1 mg IM .X1 PRN PRN Reason: Hypoglycemia Insulin Glargine (Lantus (Bk)) 15 units SC QHS [facility] Last Admin: 06/16/18 21:26 Dose: 15 u Insulin Human Lispro (Humalog Kwikpen (Bk)) 8 unit SC TIDCM [facility] PRN Reason: Protocol Last Admin: 06/17/18 10:40 Dose: 8 units Lisinopril (Zestril) 20 mg PO DAILY [facility] Last Admin: 06/17/18 10:25 Dose: 20 mg Lorazepam (Ativan) 0.5 mg PO BID PRN PRN Reason: ANXIETY Last Admin: 06/16/18 19:34 Dose: 0.5 mg Magnesium Hydroxide (Milk Of Magnesia) 30 ml PO DAILY PRN PRN PRN Reason: Constipation Meloxicam (Mobic) 7.5 mg PO DAILY [facility] Last Admin: 06/17/18 10:25 Dose: 7.5 mg Multivitamins/Minerals (Multivitamin With Minerals) 1 tablet PO DAILY@0800 [facility] Last Admin: 06/17/18 10:23 Dose: 1 tablet Nutritional Formula (Lactose Free) (Glucerna Shake) 120 ml PO 4X/DAY [facility] Last Admin: 06/17/18 10:23 Dose: Not Given Oxycodone HCl (Oxyir) 10 mg PO Q6H PRN PRN PRN Reason: SEVERE PAIN (6-10/10) Last Admin: 06/17/18 10:35 Dose: 10 mg Pantoprazole Sodium (Protonix) 20 mg PO DAILY [facility] Last Admin: 06/17/18 10:23 Dose: 20 mg Potassium Chloride (K-Dur) 20 meq PO DAILYCM [facility] Promethazine HCl (Phenergan Tablet) 25 mg PO Q6H PRN PRN PRN Reason: NAUSEA Last Admin: 06/16/18 05:40 Dose: 25 mg Sodium Chloride () 5 - 30 ml IV UD PRN PRN Reason: SALINE FLUSH Zolpidem Tartrate (Ambien (Generic)) 5 mg PO QHS PRN PRN PRN Reason: SLEEP Last Admin: 06/16/18 21:26 Dose: 5 mg Medical Necessity - Tobacco Use Smoking Status: Current every day smoker Tobacco Use: Cigarettes Assessment/Plan All Active Problems (Last Reviewed 06/05/18 @ 08:58 by Marta Santos) Complicated fracture of left calcaneum (Acute) Complicated fracture of left talus (Acute) Charcot's joint, left ankle and foot (Acute) Osteomyelitis of ankle or foot (Resolved) Diabetic foot infection (Resolved) Diabetic infected right heel ulcer (Resolved) The patient is a 58 year old F with history of type 2 diabetes mellitus, complicated with diabetic neuropathy and Charcot joint is being admitted directly on the floor at the request of School Photographs Detailer Dr. Luke. 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 The patient twisted her left ankle at the end of March/early April 2018 on walking and fracture of left talus. Patient had immobility boot was advised immobilization but she quit using boot as she had fall on that. Patient kept on falling because of weakness of left ankle and not fracture gotten worse as per Dr. Luke. She sustained fragmented fracture of calcaneus with old fracture of talus. She came to Monday for left leg cellulitis below knee level and excruciating pain. She was given antibiotic Keflex which she is taking and was no sent home. Left leg cellulitis, erythema is much better but she still has localized pain, 10/10 intensity. Patient also supposed to see ID for suspected cellulitis/deep tissue infection because of excruciating pain but could not see ID as an outpatient. Furthermore, the patient was directly admitted for further management of pain, complicated fracture with left ankle Charcot joint Patient was having fever for 2-3 days prior to Monday but it has resolved after taking antibiotic and cellulitis is much improved. 1. Closed, complicated fracture of left talus and calcaneum with left ankle Charcot joint and diabetic neuropathy: Patient is being admitted directly on [facility] floor. Pain control. Nonweightbearing. PT and OT and correctional case manager consult for possible SNF placement for continued weightbearing and monitor fracture healing. Albumin is 2.0. Alkaline phosphatase 246 probably of bone origin. Repeat left ankle and foot x-ray done and shows osseous destruction of the midfoot particularly the anterior talus and calcaneum suggesting Charcot joint. Diffuse soft tissue swelling. No evidence of acute fracture or dislocation is reported. On NSAID Mobic as an anti-inflammatory and pain management. Mild hypokalemia: Potassium being replaced. Potassium being corrected repeat potassium was 3.6. on maintenance potassium. Recheck potassium tomorrow a.m. 2. Recent, resolving left leg cellulitis below knee to ankle: Patient started on Keflex 500 mg every 6 hourly on Monday in ER. Patient completed antibiotics yesterday. ID consult for concern of deep infection and further opinion regarding antibiotic but not available until Monday. No leukocytosis. 3. Complicated diabetes mellitus type 2 with diabetic neuropathy with Charcot joint: Blood sugar in BMP is 193. Blood sugar is controlled. A1c 7.2. Accu-Cheks before meals and at bedtime and cover with NovoLog sliding scale. Lantus dose decreased to 15 units subcu at bedtime and will continue it and adjust according to glucose checks. Hypovitaminosis D: Patient vitamin D was 5 on May 17, 2018 had 1 vitamin D 50,000 units dose. Started on vitamin D therapeutic dose 50,000 units q. weekly. 4. Other chronic comorbidities include hypertension, history of previous osteomyelitis of left foot and ankle, peripheral neuropathy, tobacco use disorder, obesity and anxiety or depression: Home medication reconciliation done. Laboratory Results 06/15/18 18:14: ESR 21 06/15/18 18:14: C-React Prot Ext Range Pending 06/15/18 18:14: WBC 4.4, RBC 3.85 L, Hgb 11.7 L, Hct 35.7 L, MCV 92.7, MCH 30.4, MCHC 32.8, RDW 13.0, RDW Differential 43.6, Plt Count 253, MPV 9.4, Immature Gran % (Auto) 0.000, Neut % (Auto) 41.7 L, Lymph % (Auto) 46.7 H, Dyer % (Auto) 7.4, Eos % (Auto) 3.7, Baso % (Auto) 0.5, Absolute Neuts (auto) 1.8 L, Absolute Lymphs (auto) 2.03, Total Counted Not Reportable 06/15/18 18:14: Sodium 144, Potassium 3.2 L, Chloride 107, Carbon Dioxide 27.0, Anion Gap 10, BUN 12, Creatinine 0.85, Estim Creat Clear Calc 63.33, Est GFR (MDRD) Af Amer 87, Est GFR (MDRD) Non-Af 72, BUN/Creatinine Ratio 14.1, Glucose 193 H, Calcium 8.2 L, Total Bilirubin 0.40, AST 44 H, ALT 26, Alkaline Phosphatase 246 H, Total Protein 6.4, Albumin 2.0 L, Globulin 4.4 H, Albumin/Globulin Ratio 0.5 L Clinical Impression(s) from Imaging Studies Ankle X-Ray 06/15/18 19:30 IMPRESSION: Findings as above suggestive of Charcot joint Electronically Signed: Clyde Jones DO at 19:45 EDT Tel , Service support , This note was generated with Acustream dictation software. Every effort was made to ensure accuracy, however computerized meat packager mistakes may persist. Code Visit Inpatient E&M: 48286 Subs Hosp L2
--- NOTE | 2018-06-17 10:43 | NURSING ---
pt refused her potassium despite education. I don't know how many times I've told them I don't take that anymore. continued to argue and refused potassium po despite education.
[2018-06-17 10:56] LABS: Bedside Glucose 194 mg/dL (70-110)
[2018-06-17] MEDS: proMETHazine 25 MG Tablet PO (12:40)
[2018-06-17 12:41] LABS: Bedside Glucose 194 mg/dL (70-110)
[2018-06-17 16:09] VITALS: BP 146/61; PULSE 80; RESP 18; TEMP 37.3; O2SAT 95
[2018-06-17 17:05] LABS: Bedside Glucose 151 mg/dL (70-110)
[2018-06-17] MEDS: Atorvastatin Calcium 40 MG Tablet PO (21:10)
[2018-06-17 21:12] VITALS: BP 113/89; PULSE 92; RESP 18; TEMP 37; O2SAT 98
[2018-06-17] MEDS: Zolpidem Tartrate 5 MG Tablet PO (21:16)
[2018-06-17 21:32] VITALS: PULSE 92; RESP 18; O2SAT 98
[2018-06-17 21:45] LABS: Bedside Glucose 233 mg/dL (70-110)
[2018-06-17 23:46] LABS: Bedside Glucose 185 mg/dL (70-110)
[2018-06-18] MEDS: LORazepam 0.5 MG Tablet PO ×3 (00:38→23:48)
[2018-06-18 04:18] VITALS: BP 154/52; PULSE 77; RESP 18; TEMP 36.8; O2SAT 98
[2018-06-18] MEDS: Acetaminophen 325 MG Tablet 650 MG PO ×2 (04:19→13:31)
[2018-06-18 04:24] VITALS: PULSE 77
[2018-06-18 07:02] LABS: Anion Gap 7 (5-15); BUN 12 mg/dL (7-18); Calcium,Total 8.4 mg/dL (8.5-10.1); Chloride 106 mmol/L (98-107); EST Glomerular Filtration Rate 78 mL/min (>60); Est Glom Filt Rate - Afr Amer 94 mL/min (>60); Estimated Creatinine Clearance 67.29 ml/min; Glucose 70 mg/dL (74-106); Potassium 3.7 mmol/L (3.5-5.1); Sodium Level 141 mmol/L (136-145)
[2018-06-18] MEDS: oxyCODONE 5 MG Tablet 10 MG PO ×3 (08:23→21:41)
[2018-06-18] MEDS: Multivitamins,Ther W-Minerals Tablet 1 TABLET PO (08:24)
[2018-06-18 08:46] LABS: Bedside Glucose 76 mg/dL (70-110)
--- NOTE | 2018-06-18 08:47 | CASEMGMT ---
Addendum entered by Roberta Rojas 06/18/18 10:55: WILBER received message from Nadine at [facility] stating that she is able to accept pt. WILBER placed a call back to [facility] and spoke with Jade who states Nadine is on the other phone line at this time. WILBER informed Jade to let Nadine know to submit for pre-cert for pt. Original Note: Social work Note SW faxed referral to [facility]. Plan: [facility] pending acceptance and pre-cert Roberta Rojas NURSE PARALEGAL, AQUATIC ECOLOGIST
[2018-06-18] MEDS: proMETHazine 25 MG Tablet PO ×2 (10:43→21:42)
[2018-06-18] MEDS: buPROPion (SR) 150 MG Tablet.SA PO ×2 (10:45→21:46)
[2018-06-18] MEDS: Pantoprazole Sodium 20 MG Tablet PO (10:45)
[2018-06-18] MEDS: Chlorthalidone 50 MG Tablet 25 MG PO (10:45)
[2018-06-18] MEDS: Lisinopril 20 MG Tablet PO (10:47)
[2018-06-18] MEDS: Enoxaparin 40 MG/0.4 ML Syringe SC (10:47)
[2018-06-18] MEDS: Meloxicam 15 MG Tablet PO (10:48)
--- NOTE | 2018-06-18 10:48 | PCM.PN.HOSP ---
Patient Problems: Active and Suspected Problems (Last Reviewed 06/05/18 @ 08:58 by Marta Santos) Complicated fracture of left calcaneum (Acute) Complicated fracture of left talus (Acute) Charcot's joint, left ankle and foot (Acute) Subjective: still with pain in left ankle. Vitals/I&O's: Vital Signs Temp Pulse Resp BP Pulse Ox 36.8 C 77 18 154/52 H 98 06/18/18 04:18 06/18/18 04:24 06/18/18 04:18 06/18/18 04:18 06/18/18 04:18 Oxygen Delivery Method Room Air Weight: 79.9 kg Body Mass Index (BMI) 29.2 Intake and Output for Last 24 Hours 06/16/18 06/17/18 06/18/18 23:59 23:59 23:59 Intake Total 1760 / 1760 480 / 480 550 / 550 Output Total 650 / 650 1000 / 1000 200 / 200 Balance 1110 / 1110 -520 / -520 350 / 350 General: Alert, No apparent distress HEENT: Atraumatic, Normocephalic Oral: Moist Mucosa, No Gingival or Mucosal Lesions/ Ulcerations Neck: No Nodes, Thyroid Normal Size and Texture Lungs: Clear to auscultation, Normal air movement, No rhonchi, No wheeze Cardiovascular: Regular rate, Regular Rhythm, Normal S1, Normal S2, No murmurs Abdomen: Bowel Sounds Present, Soft, Non Tender, Non-Distended, No Hepato-splenomegaly Extremities: - - left ankle and foot wrapped--did not remove. Psych/Mental Status: Appropriate, Flat Affect Laboratory Results 06/17/18 10:40: POC Glucose 194 H 06/17/18 12:34: POC Glucose 194 H 06/17/18 16:24: POC Glucose 151 H 06/17/18 21:25: POC Glucose 233 H 06/17/18 23:41: POC Glucose 185 H 06/18/18 05:15: Sodium 141, Potassium 3.7, Chloride 106, Carbon Dioxide 28.0, Anion Gap 7, BUN 12, Creatinine 0.80, Estim Creat Clear Calc 67.29, Est GFR (MDRD) Af Amer 94, Est GFR (MDRD) Non-Af 78, BUN/Creatinine Ratio 15.0, Glucose 70 L, Calcium 8.4 L 06/18/18 08:18: POC Glucose 76 Current Medications Acetaminophen (Tylenol) 650 mg PO Q6H PRN PRN PRN Reason: PAIN Last Admin: 06/18/18 04:19 Dose: 650 mg Atorvastatin Calcium (Lipitor) 40 mg PO QHS [facility] Last Admin: 06/17/18 21:10 Dose: 40 mg Bupropion HCl (Wellbutrin Sr (150mg Tablets)) 150 mg PO BID [facility] Last Admin: 06/17/18 21:10 Dose: 150 mg Chlorthalidone (Hygroton) 25 mg PO DAILY [facility] Last Admin: 06/17/18 10:24 Dose: 25 mg Dextrose (D50w Syringe) 0 gm IV X1 PRN; Protocol PRN Reason: Hypoglycemia Docusate Sodium (Colace) 100 mg PO BID PRN PRN PRN Reason: Constipation Enoxaparin Sodium (Lovenox) 40 mg SC DAILY@1000 [facility] Last Admin: 06/17/18 10:24 Dose: 40 mg Ergocalciferol (Vitamin D) 50,000 unit PO Q7D [facility] Last Admin: 06/16/18 11:51 Dose: 50,000 unit Glucagon () 1 mg IM .X1 PRN PRN Reason: Hypoglycemia Insulin Glargine (Lantus (Bkc)) 15 units SC QHS [facility] Last Admin: 06/17/18 21:26 Dose: 15 u Insulin Human Lispro (Humalog Kwikpen (Bkc)) 8 unit SC TIDCM [facility] PRN Reason: Protocol Last Admin: 06/18/18 08:20 Dose: Not Given Lisinopril (Zestril) 20 mg PO DAILY [facility] Last Admin: 06/17/18 10:25 Dose: 20 mg Lorazepam (Ativan) 0.5 mg PO BID PRN PRN Reason: ANXIETY Last Admin: 06/18/18 00:38 Dose: 0.5 mg Magnesium Hydroxide (Milk Of Magnesia) 30 ml PO DAILY PRN PRN PRN Reason: Constipation Meloxicam (Mobic) 15 mg PO DAILY [facility] Stop: 06/20/18 10:01 Multivitamins/Minerals (Multivitamin With Minerals) 1 tablet PO DAILY@0800 [facility] Last Admin: 06/18/18 08:24 Dose: 1 tablet Nutritional Formula (Lactose Free) (Glucerna Shake) 120 ml PO 4X/DAY [facility] Last Admin: 06/18/18 10:42 Dose: Not Given Oxycodone HCl (Oxyir) 10 mg PO Q6H PRN PRN PRN Reason: SEVERE PAIN (6-08/08) Last Admin: 06/18/18 08:23 Dose: 10 mg Pantoprazole Sodium (Protonix) 20 mg PO DAILY [facility] Last Admin: 06/17/18 10:23 Dose: 20 mg Potassium Chloride (K-Dur) 20 meq PO DAILYCM [facility] Last Admin: 06/18/18 08:24 Dose: 20 meq Promethazine HCl (Phenergan Tablet) 25 mg PO Q6H PRN PRN PRN Reason: NAUSEA Last Admin: 06/18/18 10:43 Dose: 25 mg Sodium Chloride () 5 - 30 ml IV UD PRN PRN Reason: SALINE FLUSH Zolpidem Tartrate (Ambien (Generic)) 5 mg PO QHS PRN PRN PRN Reason: SLEEP Last Admin: 06/17/18 21:16 Dose: 5 mg Medical Necessity - Tobacco Use Smoking Status: Current every day smoker Tobacco Use: Cigarettes Assessment/Plan All Active Problems (Last Reviewed 06/05/18 @ 08:58 by Marta Santos) Complicated fracture of left calcaneum (Acute) Complicated fracture of left talus (Acute) Charcot's joint, left ankle and foot (Acute) Osteomyelitis of ankle or foot (Resolved) Diabetic foot infection (Resolved) Diabetic infected right heel ulcer (Resolved) 1. Left Charcot foot NWB LLE no overt fracture noted on xray, nor podiatry note follow up with podiatry as outpt. 2. recent left leg cellulitis on Keflex ID to see 3. DM2 fair control Lantus 15 and Humalog 8 QAC 4. DVT proph: LMWH. 5. Debility needs SNF precert started today, and won't be ready until at least 06/19 Code Visit Inpatient E&M: 31527 Subs Hosp L2
[2018-06-18 10:50] VITALS: BP 148/92; PULSE 85; RESP 18; TEMP 36.6; O2SAT 98
--- NOTE | 2018-06-18 11:28 | PCM.HP.ID ---
Problem List (1) Charcot's joint, left ankle and foot Status: Acute Reason for Consult: charcot foot Consulted by: Dr. Covington History of Present Illness: The patient is a 58 year old F with Charcot foot who presented with L foot fracture after slipping around end of March. Over past 2 weeks, had increased pain/redness/swelling. Went to ED 06/11, started on keflex, now redness resolved. No open lesions, no drainage. No fever or chills. Follows with Dr. Luke. Full ROS performed and neg except as noted above. 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 Luke. Abnormal EKG (Chronic) ekg's indicating possible previous inferior infarct HTN (hypertension) (Chronic) Debility (Chronic) MRSA (methicillin resistant Staphylococcus aureus) infection (Chronic) Type II diabetes mellitus (Chronic) Peripheral neuropathy (Chronic) Tobacco use disorder (Chronic) Allergies/Adverse Reactions: Allergies clindamycin [From Cleocin] Allergy (Verified 06/11/18 12:57) Itching ondansetron [From Zofran (as hydrochloride)] Allergy (Verified 06/11/18 12:57) Nausea Sulfa (Sulfonamide Antibiotics) Allergy (Verified 06/11/18 12:57) Itching Home Medications: Ambulatory Orders Medication Instructions Recorded Omeprazole 20 mg PO DAILY 12/16/16 Docusate Sodium [Colace] 100 mg PO DAILY PRN PRN 07/23/17 atorvastatin 40 mg tablet 40 mg PO QHS 06/04/18 insulin glargine (U-100) 100 20 unit SC QHS 06/04/18 unit/mL (3 mL) subcutaneous pen insulin lispro (U-100) 100 unit/mL 6 unit SC TID ml 06/04/18 subcutaneous pen lisinopril 20 mg tablet 20 mg PO DAILY 06/04/18 lorazepam 0.5 mg tablet 0.5 mg PO BID PRN tab 06/04/18 multivitamin-ferrous 1 tab PO DAILY 06/04/18 fumarate-folic acid 18 mg-400 mcg tablet Bupropion HCl [Bupropion HCl Sr] 150 mg PO BID 06/11/18 Chlorthalidone 25 mg PO DAILY 06/11/18 Oxycodone [Oxyir] 5 mg PO TID PRN PRN 06/11/18 proMETHazine tablet [Phenergan 25 mg PO Q6H PRN PRN 06/11/18 tablet] Cephalexin [Keflex] 500 mg PO Q6 06/15/18 - Social History SMOKING STATUS:: Current every day smoker Vital Signs Temp Pulse Resp BP Pulse Ox 97.8 F 85 18 148/92 H 98 06/18/18 10:50 06/18/18 10:50 06/18/18 10:50 06/18/18 10:50 06/18/18 10:50 Oxygen Delivery Method Room Air Weight: 79.9 kg Body Mass Index (BMI) 29.2 Laboratory Tests Past 24 Hrs 06/18/18 05:15 Sodium 141 Potassium 3.7 Chloride 106 Carbon Dioxide 28.0 Anion Gap 7 BUN 12 Creatinine 0.80 Estim Creat Clear Calc 67.29 Est GFR (MDRD) Af Amer 94 Est GFR (MDRD) Non-Af 78 BUN/Creatinine Ratio 15.0 Glucose 70 L Calcium 8.4 L - Other Studies Radiology: [] reviewed Other Studies: [] Route of nutrition/ use of supplements: [] Nutritional Intake: [] IV Site: [] Kan Catheter: [] - Physical Exam General: Alert, Oriented x3, Cooperative, No apparent distress HEENT: Atraumatic, PERRLA, EOMI Neck: Supple, No Nodes Lungs: Clear to auscultation, Normal air movement Cardiovascular: Regular rate, Regular Rhythm, No murmurs Abdomen: Soft, Non Tender, Non-Distended Extremities: Edema - mild BLE Skin: No rashes IV Site: Peripheral, without redness Musculoskeletal: - - L foot wrapped Neurological: Cranial nerves II-XII grossly intact - Assessment/Plan Antibiotics: [] Assessment/Plan: [] Active and Suspected Problems (Last Reviewed 06/05/18 @ 08:58 by Marta Santos) Complicated fracture of left calcaneum (Acute) Complicated fracture of left talus (Acute) Charcot's joint, left ankle and foot (Acute) No sign of current infection, completed course of keflex for L foot cellulitis. Podiatry following. Will follow, thank you, d/w Dr. Covnigton.
--- NOTE | 2018-06-18 11:49 | CASEMGMT ---
Social Work Note SW updated pt on acceptance to [facility] and that pre-cert will need to be obtained. Pt states understanding. Pt denied additional needs or concerns at this time. Plan: [facility] pending pre-cert Roberta Rojas ANALYTICAL SCIENCES DIRECTOR, GEOLOGIST
[2018-06-18 12:45] LABS: Bedside Glucose 157 mg/dL (70-110)
[2018-06-18] MEDS: Insulin Lispro 100 UNIT/ML INSULN.PEN 8 UNIT SC ×2 (13:25→17:34)
--- NOTE | 2018-06-18 14:40 | CHAPLAIN ---
Type of Pastoral Visit _x__ Initial Visit ___ Follow-up Visit ___ On-call Visit ___ General Patient Visit ___ Spiritual Assessment ___ Family Conference ___ Bereavement ___ Rapid Response ___ Code Blue ___ Other (describe below) Pastoral Care Referral From _x__ Patient ___ Family ___ Nurse ___ Physician ___ Airline Lounge Receptionist ___ Lawyers ___ Other (describe below) Sacrament/Intervention _x__ Active listening ___ Anointing ___ Faith ___ Bereavement ___ Communion _x__ Lauren exploration ___ _x__ Life review _x__ Prayer ___ Reconciliation ___ Sacrament of Sick _x__ Supportive presence ___ Wedding ___ Other (describe below) Pastoral Comments patient expresses concerns about going to an ECF again; pt discloses troubles with sleeping and being alone at nights; pt has fears about ; she also expresses that she has terrible pain at times; pt support system is very small; pt has lauren in God but no connection to a temple or real support in that area either; pt said that she likes to read inspirational devotional material; this ka[place] kura kaupapa maori gave devotional booklets to pt; prayer
[2018-06-18 14:47] VITALS: BP 113/66; PULSE 81; RESP 18; TEMP 36.6; O2SAT 98
[2018-06-18 17:11] LABS: Bedside Glucose 228 mg/dL (70-110)
--- NOTE | 2018-06-18 18:38 | PCM.PROGNOTE ---
Patient Problems: Active and Suspected Problems (Last Reviewed 06/05/18 @ 08:58 by Marta Santos) Complicated fracture of left calcaneum (Acute) Complicated fracture of left talus (Acute) Charcot's joint, left ankle and foot (Acute) Subjective: Patient was seen today for follow up on left talus and calcaneus fracture/Charcot Neuroarthropathy. Patient relates swelling is down, and overall pain improved. She was sitting up in bed with soft cast clean, dry and intact. Her sister was at bedside. - Physical Exam General: Alert, Oriented x3, Cooperative, No apparent distress Extremities: No clubbing, No cyanosis, Capillary Refill Less than 3 Seconds, No Calf Tenderness, - - Soft cast is clean, dry and intact left foot/ankle/leg, with noted improved edema and less pain. Vital Signs Temp Pulse Resp BP Pulse Ox 97.9 F 81 18 113/66 98 06/18/18 14:47 06/18/18 14:47 06/18/18 14:47 06/18/18 14:47 06/18/18 14:47 Oxygen Delivery Method Room Air Weight: 79.9 kg Body Mass Index (BMI) 29.2 Intake and Output for Last 24 Hours 06/16/18 06/17/18 06/18/18 23:59 23:59 23:59 Intake Total 1760 / 1760 480 / 480 1200 / 1200 Output Total 650 / 650 1000 / 1000 650 / 650 Balance 1110 / 1110 -520 / -520 550 / 550 Laboratory Tests Past 24 Hrs 06/18/18 05:15 Sodium 141 Potassium 3.7 Chloride 106 Carbon Dioxide 28.0 Anion Gap 7 BUN 12 Creatinine 0.80 Estim Creat Clear Calc 67.29 Est GFR (MDRD) Af Amer 94 Est GFR (MDRD) Non-Af 78 BUN/Creatinine Ratio 15.0 Glucose 70 L Calcium 8.4 L POC Glucose 06/18/18 06/18/18 06/18/18 16:36 11:48 08: POC Glucose 228 H 157 H 76 06/17/18 06/17/18 23:41 21:25 POC Glucose 185 H 233 H Medical Necessity - Tobacco Use Smoking Status: Current every day smoker Tobacco Use: Cigarettes Assessment/Plan All Active Problems (Last Reviewed 06/05/18 @ 08:58 by Marta A Danielle) Complicated fracture of left calcaneum (Acute) Complicated fracture of left talus (Acute) Charcot's joint, left ankle and foot (Acute) Osteomyelitis of ankle or foot (Resolved) Diabetic foot infection (Resolved) Diabetic infected right heel ulcer (Resolved) Charcot ankle/foot left DM with neuropathy Continue with soft cast - keep clean, dry and intact. Strict nonweightbearing to the left foot at all times. Keep foot protected in [facility] Walker when in transit and/or when out of bed. [place] Walker impression has been take by [facility]. Continue with Vitamin D 50,000 units once a week. Infectious disease saw patient, no further antibiotics. Patient to go to [place], possibly tomorrow. Podiatry to continue to follow. Patient to follow up in office in 1 week, sooner if needed, once discharged. This was discussed with patient, she agreed with plan.
[2018-06-18 20:45] VITALS: BP 132/73; PULSE 81; RESP 18; TEMP 36.9; O2SAT 98
[2018-06-18] MEDS: Zolpidem Tartrate 5 MG Tablet PO (21:42)
[2018-06-18] MEDS: Atorvastatin Calcium 40 MG Tablet PO (21:46)
[2018-06-18 22:31] LABS: Bedside Glucose 227 mg/dL (70-110)
[2018-06-19] MEDS: Acetaminophen 325 MG Tablet 650 MG PO (01:49)
[2018-06-19] MEDS: 0.9% NaCl Peripheral Flush Adult/Peds IV (02:35)
[2018-06-19] MEDS: Morphine 2 MG/ML Syringe IV (02:35)
[2018-06-19 02:45] VITALS: BP 127/62; PULSE 84; RESP 16; TEMP 36.9; O2SAT 95
[2018-06-19 06:50] LABS: Bedside Glucose 219 mg/dL (70-110)
[2018-06-19] MEDS: Insulin Lispro 100 UNIT/ML INSULN.PEN 8 UNIT SC ×3 (08:12→17:14)
[2018-06-19] MEDS: Multivitamins,Ther W-Minerals Tablet 1 TABLET PO (08:14)
--- NOTE | 2018-06-19 08:53 | PCM.PN.HOSP ---
Patient Problems: Active and Suspected Problems (Last Reviewed 06/05/18 @ 08:58 by Marta Santos) Complicated fracture of left calcaneum (Acute) Complicated fracture of left talus (Acute) Charcot's joint, left ankle and foot (Acute) Subjective: Patient was seen and examined. Complains of severe pain in her left foot. She states the pain medication to take the edge of the pain but does not last. Denies any fever or chills. Vitals/I&O's: Vital Signs Temp Pulse Resp BP Pulse Ox 98.4 F 84 16 127/62 H 95 06/19/18 02:45 06/19/18 02:45 06/19/18 02:45 06/19/18 02:45 06/19/18 02:45 Oxygen Delivery Method Room Air Weight: 79.9 kg Body Mass Index (BMI) 29.2 Intake and Output for Last 24 Hours 06/17/18 06/18/18 06/19/18 23:59 23:59 23:59 Intake Total 480 / 480 1200 / 1200 350 / 350 Output Total 1000 / 1000 650 / 650 600 / 600 Balance -520 / -520 550 / 550 -250 / -250 General: Alert, Oriented x3, Cooperative, - - appears to be in pain HEENT: Atraumatic, PERRLA, EOMI, Normocephalic Oral: Moist Mucosa Neck: Supple Lungs: Clear to auscultation, Normal air movement Cardiovascular: Regular rate, Regular Rhythm, Normal S1, Normal S2, No murmurs Abdomen: Bowel Sounds Present, Soft, Non Tender, Non-Distended, No Hepato-splenomegaly Extremities: No edema, - - Left foot dressed up in CODY wraps Skin: No rashes Musculoskeletal: No Tenderness to Palpation of Joints or Extremities Lymphatic: No Cervical, Supraclavicular, or Inguinal Adenopathy Neurological: Cranial nerves II-XII grossly intact, Neuro grossly intact Psych/Mental Status: Normal Affect, Appropriate Laboratory Results 06/18/18 11:48: POC Glucose 157 H 06/18/18 16:36: POC Glucose 228 H 06/18/18 21:37: POC Glucose 227 H 06/19/18 06:35: POC Glucose 219 H Current Medications Acetaminophen (Tylenol) 650 mg PO Q6H PRN PRN PRN Reason: PAIN Last Admin: 06/19/18 01:49 Dose: 650 mg Atorvastatin Calcium (Lipitor) 40 mg PO QHS [facility] Last Admin: 06/18/18 21:46 Dose: 40 mg Bupropion HCl (Wellbutrin Sr (150mg Tablets)) 150 mg PO BID [facility] Last Admin: 06/18/18 21:46 Dose: 150 mg Chlorthalidone (Hygroton) 25 mg PO DAILY [facility] Last Admin: 06/18/18 10:45 Dose: 25 mg Dextrose (D50w Syringe) 0 gm IV X1 PRN; Protocol PRN Reason: Hypoglycemia Docusate Sodium (Colace) 100 mg PO BID PRN PRN PRN Reason: Constipation Enoxaparin Sodium (Lovenox) 40 mg SC DAILY@1000 [facility] Last Admin: 06/18/18 10:47 Dose: 40 mg Ergocalciferol (Vitamin D) 50,000 unit PO Q7D [facility] Last Admin: 06/16/18 11:51 Dose: 50,000 unit Glucagon () 1 mg IM .X1 PRN PRN Reason: Hypoglycemia Insulin Glargine (Lantus (Bkc)) 15 units SC QHS [facility] Last Admin: 06/18/18 21:45 Dose: 227 u Insulin Human Lispro (Humalog Kwikpen (Bkc)) 8 unit SC TIDCM [facility] PRN Reason: Protocol Last Admin: 06/19/18 08:12 Dose: 8 units Lisinopril (Zestril) 20 mg PO DAILY [facility] Last Admin: 06/18/18 10:47 Dose: 20 mg Lorazepam (Ativan) 0.5 mg PO BID PRN PRN Reason: ANXIETY Last Admin: 06/18/18 23:48 Dose: 0.5 mg Magnesium Hydroxide (Milk Of Magnesia) 30 ml PO DAILY PRN PRN PRN Reason: Constipation Meloxicam (Mobic) 15 mg PO DAILY [facility] Stop: 06/20/18 10:01 Last Admin: 06/18/18 10:48 Dose: 15 mg Multivitamins/Minerals (Multivitamin With Minerals) 1 tablet PO DAILY@0800 [facility] Last Admin: 06/19/18 08:14 Dose: 1 tablet Nutritional Formula (Lactose Free) (Glucerna Shake) 120 ml PO 4X/DAY [facility] Last Admin: 06/18/18 21:58 Dose: Not Given Oxycodone HCl (Oxyir) 10 mg PO Q6H PRN PRN PRN Reason: SEVERE PAIN (6-1010) Last Admin: 06/18/18 21:41 Dose: 10 mg Pantoprazole Sodium (Protonix) 20 mg PO DAILY [facility] Last Admin: 06/18/18 10:45 Dose: 20 mg Potassium Chloride (K-Dur) 20 meq PO DAILYCM [facility] Last Admin: 06/19/18 08:14 Dose: 20 meq Promethazine HCl (Phenergan Tablet) 25 mg PO Q6H PRN PRN PRN Reason: NAUSEA Last Admin: 06/18/18 21:42 Dose: 25 mg Sodium Chloride () 5 - 30 ml IV UD PRN PRN Reason: SALINE FLUSH Last Admin: 06/19/18 02:35 Dose: 10 ml Zolpidem Tartrate (Ambien (Generic)) 5 mg PO QHS PRN PRN PRN Reason: SLEEP Last Admin: 06/18/18 21:42 Dose: 5 mg Medical Necessity - Tobacco Use Smoking Status: Current every day smoker Tobacco Use: Cigarettes Assessment/Plan All Active Problems (Last Reviewed 06/05/18 @ 08:58 by Marta Santos) Complicated fracture of left calcaneum (Acute) Complicated fracture of left talus (Acute) Charcot's joint, left ankle and foot (Acute) Osteomyelitis of ankle or foot (Resolved) Diabetic foot infection (Resolved) Diabetic infected right heel ulcer (Resolved) 58-year-old female past medical history of type II DM, complicated by diabetic neuropathy, Charcot joint, status post left fourth and fifth ray amputation, recent history of cellulitis of the left foot, comes in with complaints of left foot pain. 1. Left Charcot foot, nonweightbearing on the left lower extremity, podiatry follow-up in the outpatient is planned Complains of severe pain in the left foot, she is on oxycodone 10 mg every 6, will add gabapentin 100 mg nightly 2. Recent left leg cellulitis, completed treatment with Keflex, ID consulted, no more on antibiotics. 3. Type 2 DM, blood sugars are fairly uncontrolled, will increase Lantus to 17 units nightly and continue on Humalog 8 units 3 times daily 4. Debility, related to current left Charcot foot, patient will be discharged to [facility] facility, precert pending 5. DVT ppx- Lovenox SC Code Visit Inpatient E&M: 03139 Subs Hosp L2
--- NOTE | 2018-06-19 09:16 | CASEMGMT ---
Social Work Note SW faxed updated clinicals to [facility]. Plan: [facility] pending pre-cert Roberta Rojas SPORTS APPAREL INTERNSHIP, INK BLENDER
[2018-06-19] MEDS: oxyCODONE 5 MG Tablet 10 MG PO ×3 (10:12→23:25)
[2018-06-19] MEDS: proMETHazine 25 MG Tablet PO (10:12)
[2018-06-19 10:14] VITALS: BP 135/46; PULSE 87; RESP 18; TEMP 37.1; O2SAT 99
[2018-06-19] MEDS: Chlorthalidone 50 MG Tablet 25 MG PO (10:15)
[2018-06-19] MEDS: Enoxaparin 40 MG/0.4 ML Syringe SC (10:16)
[2018-06-19] MEDS: Lisinopril 20 MG Tablet PO (10:16)
[2018-06-19] MEDS: Meloxicam 15 MG Tablet PO (10:17)
[2018-06-19] MEDS: buPROPion (SR) 150 MG Tablet.SA PO ×2 (10:17→21:31)
[2018-06-19] MEDS: Pantoprazole Sodium 20 MG Tablet PO (10:17)
[2018-06-19] MEDS: LORazepam 0.5 MG Tablet PO (12:20)
[2018-06-19 12:31] LABS: Bedside Glucose 203 mg/dL (70-110)
[2018-06-19 15:31] VITALS: BP 146/76; PULSE 84; RESP 18; TEMP 37.2; O2SAT 97
[2018-06-19] MEDS: Acetaminophen 500 MG Tablet 1000 MG PO ×2 (15:35→21:31)
[2018-06-19 17:31] LABS: Bedside Glucose 213 mg/dL (70-110)
[2018-06-19 21:24] VITALS: BP 164/80; PULSE 86; RESP 18; TEMP 37.2; O2SAT 98
[2018-06-19] MEDS: Gabapentin 100 MG Capsule PO (21:31)
[2018-06-19] MEDS: Atorvastatin Calcium 40 MG Tablet PO (21:31)
[2018-06-19] MEDS: Zolpidem Tartrate 5 MG Tablet PO (21:38)
[2018-06-19 22:31] LABS: Bedside Glucose 278 mg/dL (70-110)
[2018-06-20] MEDS: LORazepam 0.5 MG Tablet PO (00:23)
[2018-06-20 03:03] VITALS: BP 136/77; PULSE 84; RESP 16; TEMP 37.1; O2SAT 97
[2018-06-20] MEDS: Acetaminophen 500 MG Tablet 1000 MG PO ×2 (05:30→13:48)
[2018-06-20] MEDS: oxyCODONE 5 MG Tablet 10 MG PO ×2 (05:30→13:50)
[2018-06-20] MEDS: 0.9% NaCl Peripheral Flush Adult/Peds IV (05:31)
[2018-06-20 07:39] VITALS: BP 147/64; PULSE 79; RESP 18; TEMP 36.8; O2SAT 98
[2018-06-20] MEDS: Lisinopril 20 MG Tablet PO (07:43)
[2018-06-20] MEDS: Enoxaparin 40 MG/0.4 ML Syringe SC (07:44)
[2018-06-20] MEDS: Pantoprazole Sodium 20 MG Tablet PO (07:44)
[2018-06-20] MEDS: Insulin Lispro 100 UNIT/ML INSULN.PEN 8 UNIT SC ×2 (07:44→12:19)
[2018-06-20] MEDS: Multivitamins,Ther W-Minerals Tablet 1 TABLET PO (07:44)
[2018-06-20] MEDS: buPROPion (SR) 150 MG Tablet.SA PO (07:44)
[2018-06-20] MEDS: Meloxicam 15 MG Tablet PO (07:44)
[2018-06-20] MEDS: Chlorthalidone 50 MG Tablet 25 MG PO (07:45)
[2018-06-20] MEDS: Glucerna Shake 120 ML LIQUID PO (07:45)
[2018-06-20 08:20] LABS: Bedside Glucose 176 mg/dL (70-110)
[2018-06-20 12:25] LABS: Bedside Glucose 233 mg/dL (70-110)
--- NOTE | 2018-06-20 13:00 | CASEMGMT ---
Social Work Note WILBER received call from Nadine at [facility] stating that pre-cert has been obtained and pt is able to discharge today. Dr. Jacobs updated on this. WILBER faxed completed discharge paperwork to Nadine at [facility] including transfer to extended care facility, signed medication list, and any scripts. Originals in SNF folder and copy on pt's chart. WILBER completed [facility] in [facility]. Original in SNF folder and copy on pt's chart. WILBER set up transportation through [facility] via wheelchair van for 3:00pm. Transportation form on SNF folder and copy on pt's chart. WILBER updated RN Javieri, pt and Nadine at [facility] on transportation time. Pt denied additional needs or concerns at this time. Plan: Pt to discharge to [facility] today under skilled for rehabilitation with [facility] transportation via wheelchair van for 3:00pm. Roberta Rojas HOSPICE CARE TRANSITIONS COORDINATOR, PICTURE FRAMES INSPECTOR
[2018-06-20 13:44] VITALS: BP 136/60; PULSE 83; RESP 18; TEMP 36.8; O2SAT 96
--- NOTE | 2018-06-20 14:11 | PCM.TXEXTCAR ---
- Diet 06/15/18 17:41 Diet: Calorie controlled diet Food consistency:: Regular Liquid Consistency:: Regular/Thin Type of Dietary Supplement:: Pato (Edmunds) - Routine Orders/Code Status Routine Lab Work: CBC - within 3 days, BMP - within 3 days Code Status: Full Code - Wound(s) RIGHT KNEE Wound Type: Abrasion Lt foot Wound Type: amputation 4TH 5TH METATARSAL - Therapies Weight Bearing: Non weight bearing Physical Therapy: Eval and Treat Occupational Therapy: Eval and Treat - Allergies/Procedures Done in Hospital Allergies/Adverse Reactions: Allergies clindamycin [From Cleocin] Allergy (Verified 06/11/18 12:57) Itching ondansetron [From Zofran (as hydrochloride)] Allergy (Verified 06/11/18 12:57) Nausea Sulfa (Sulfonamide Antibiotics) Allergy (Verified 06/11/18 12:57) Itching - Type of Care/Length of Stay Estimated LOS: Convalescent Care Less Than 30 days Type of Care Needed: Skilled Rehab Potential: Fair Prognosis: Fair - Additional Orders/Day of Discharge Day of Discharge: 06/20/18 - Dietary and Speech Recommendations Dietitian Recommendations/Changes: Suggest diet change to 1800 calorie, carbohydrate-controlled, cardiac. Obtain pato as needed--order from pharmacy not from dietary. Continue glucerna shake on medpass as tolerated until PO consistently improves. - Follow Up Care Primary Care Physician: Froilan Rosenthal Chi, MD [Primary Care Provider] - Please follow up with your Primary Care Physician in: within 2 weeks of discharge from [facility] Please Follow Up With: Jose Angel Luke DPM When: within 1 week
--- NOTE | 2018-06-20 14:19 | PCM.DC.SUM ---
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 Luke. Abnormal EKG (Chronic) ekg's indicating possible previous inferior infarct HTN (hypertension) (Chronic) Debility (Chronic) MRSA (methicillin resistant Staphylococcus aureus) infection (Chronic) Type II diabetes mellitus (Chronic) Peripheral neuropathy (Chronic) Tobacco use disorder (Chronic) Hospital Course and Treatment Imaging Results: Clinical Impression(s) from Imaging Studies Foot X-Ray 06/15/18 19:14 IMPRESSION: As above Electronically Signed: Clyde Jones DO at 19:46 EDT Tel , Service support , Ankle X-Ray 06/15/18 19:30 IMPRESSION: Findings as above suggestive of Charcot joint Electronically Signed: Clyde Jones DO at 19:45 EDT Tel , Service support , Podiatry Operations: None, - - debridement left foot Procedures: None Summary of Care Provided: 58-year-old female past medical history of type II DM, complicated by diabetic neuropathy, Charcot joint, status post left fourth and fifth ray amputation, recent history of cellulitis of the left foot, comes in with complaints of left foot pain. 1. Left Charcot foot, nonweightbearing on the left lower extremity, podiatry follow-up in the outpatient is planned, pain controlled on oxycodone, gabapentin added 2. Recent left leg cellulitis, completed treatment with Keflex, ID consulted, no more on antibiotics indicated. 3. Type 2 DM, blood sugars are fairly uncontrolled, changes made to her Lantus and Humalog with better control 4. Debility, related to current left Charcot foot, discharged to [facility]. Discharge Diet: Low fat/ Low Cholesterol, 2000 mg Sodium Diet, Carb Control Diet Home Medications: Medications to take at Discharge Omeprazole 20 mg PO DAILY 12/16/16 Docusate Sodium [Colace] 100 mg PO DAILY PRN PRN 07/23/17 atorvastatin 40 mg tablet 40 mg PO QHS 06/04/18 lisinopril 20 mg tablet 20 mg PO DAILY 06/04/18 multivitamin-ferrous fumarate-folic acid 18 mg-400 mcg tablet 1 tab PO DAILY 06/04/18 Bupropion HCl [Bupropion HCl Sr] 150 mg PO BID 06/11/18 Chlorthalidone 25 mg PO DAILY 06/11/18 proMETHazine tablet [Phenergan tablet] 25 mg PO Q6H PRN PRN 06/11/18 Acetaminophen [Tylenol] 1,000 mg PO TID tablet 06/20/18 Ergocalciferol [Vitamin D] 50,000 unit PO Q7D #7 capsule 06/20/18 Gabapentin [Neurontin] 100 mg PO QHS capsule 06/20/18 Glucerna Shake 120 ml PO 4X/DAY liquid 06/20/18 Insulin Glargine [Lantus SoloStar Pen] 17 units SC QHS pen 06/20/18 Insulin Lispro [Humalog KwikPen] 8 unit SC TIDCM insuln.pen 06/20/18 Lorazepam [Ativan] 0.5 mg PO BID PRN #10 tab 06/20/18 Oxycodone [Oxyir] 5 mg PO TID PRN PRN #20 tab 06/20/18 Following Prescrptions Were Given to Patient: Oxycodone [Oxyir] 5 mg PO TID PRN PRN #20 tab PRN Reason: Pain Lorazepam [Ativan] 0.5 mg PO BID PRN #10 tab PRN Reason: ANXIETY Primary Care Physician: Froilan Rosenthal Chi, MD [Primary Care Provider] - Please follow up with your Primary Care Physician in: within 2 weeks of discharge from [place] Please Follow Up With: Jose Angel Luke DPM When: within 1 week Disposition: Snf facility Minutes spent on discharge:: 40 Patient Condition:: Stable Medical Necessity - Tobacco Use Smoking Status: Current every day smoker Tobacco Use: Cigarettes Meaningful Use Info Meaningful Use Diagnoses (Choose all that apply): None applicable Code Visit Inpatient E&M: 57838 Disch Hosp
--- NOTE | 2018-06-20 14:37 | NURSING ---
call placed to [facility] and report given to Nurse whom will be taking over care for pt
== END 2018-06-20 14:48 | disposition skilled nursing facility (03) | DRG 18 ==
PROVIDERS: Admitting Provider Internal Medicine; Family Provider Family Medicine Geriatric Medicine; PCP Family Medicine Geriatric Medicine; Visit Provider Internal Medicine
DX: E11.610 Type 2 diabetes mellitus with diabetic neuropathic arthropathy (principal); L03.116 Cellulitis of left lower limb; E11.40 Type 2 diabetes mellitus with diabetic neuropathy, unspecified; Z89.422 Acquired absence of other left toe(s); Z79.4 Long term (current) use of insulin; F17.210 Nicotine dependence, cigarettes, uncomplicated; E87.6 Hypokalemia; I10 Essential (primary) hypertension; E55.9 Vitamin D deficiency, unspecified; R53.81 Other malaise
CPT/HCPCS: 36415; 73610; 73630; 80048; 80053; 80061; 82962; 83036; 83735; 84132; 85025; 85652; 86140; 97110; 97162; 97166; 97530; 97535; 97802; 99406; A4216

== ENCOUNTER → 2018-08-06 09:39 | Outpatient (CLI) | payer MEDICAID, SELFPAY ==
--- NOTE | 2018-08-06 09:46 | CT_ITS ---
STUDY: CT LOWER EXTREMITY WITHOUT CONTRAST, LEFT. REASON FOR EXAM: Female, 58 years old. Charcot neuropathy, M.D. dilatation of the 4th and 5th toes of the left foot. Question of fracture. RADIATION DOSAGE (If Supplied By Facility): CTDIvol = ( 6.15 ) mGy, DLP = ( 164.96 ) mGycm. Individualized dose optimization techniques were used for this CT.? TECHNIQUE: Thin slice helical CT acquisition of the ankle and foot without IV contrast. Coronal and sagittal 2-D MPR. COMPARISON: X-ray foot 06/15/2018, 06/11/2018. FINDINGS: There is prominent soft tissue swelling surrounding the ankle joint with evidence of a complex echogenic effusion which may reflect synovitis. There is moderate edema of the dorsum of the foot. There is no deep soft tissue gas. There is no evidence of abscess. There is a nonunion fracture of the distal fibular diaphysis. The distal tibia is acutely intact. There is medial subluxation of the tibia relative to the talus. There is subluxation and erosion of the tibiotalar articulation. There is fragmentation of the distal 3rd of the calcaneus, with fracture planes traverse into the subtalar joints. Also extending into the calcaneocuboid articulation. Cuboid and cuneiform bones and navicular bone intact. The remaining metatarsals are intact. The remaining phalanges are intact. CT/Extremity Lower without Contra IMPRESSION: Destruction of the subtalar articulation, with fragmented fractures of the calcaneus, fractures with both acute and chronic features. Nonunion fracture of the distal fibula. Medial subluxation of the tibiotalar articulation. Prominent complex soft tissue swelling and edema and effusion of the ankle joint and subtalar joint. This may represent a diffuse synovitis. Infectious process cannot be entirely excluded. Electronically Signed: Fazal Patel, at 13:00 EDT Tel , Service support ,
== END ==
PROVIDERS: Family Provider Family Medicine Geriatric Medicine; PCP Family Medicine Geriatric Medicine; Referring Provider Podiatrist; Visit Provider Podiatrist
DX: M14.672 Charcot's joint, left ankle and foot (principal)
CPT/HCPCS: 73700

== ENCOUNTER 2018-08-28 05:58 | Day surgery (SDC) | payer MEDICAID, SELFPAY ==
[2018-08-28] VITALS (12 sets, daily range): BP systolic 98–138; BP diastolic 44–66; PULSE 71–79; RESP 10–14; TEMP 36.2–36.4; O2SAT 92–99; BMI 27.4
--- NOTE | 2018-08-28 | BON_PTH ---
PATIENT: VITOR ALBERTO LOC: [facility] U#:[id number] AGE/SX: 58/F ROOM: RE08/28/[address]: Dr. Jose Angel Luke DPM : 1960 BED: DIS: 08/28/2018 SPEC #: [id number] RECD: 08/28/18 11:05 STATUS: BAHMAN GEETA #: [id number] LINNEA: 08/28/18 00:[address]: Jose Angel Luke DEPT: SURGICAL PATHOLOGY RECD BY: Christian Roca ENTERED: 08/28/18 11:06 SP TYPE: Bone OTHR DR: Dr. Froilan Rosenthal MD Tissues: A - Bone of foot, NOS B - Bone of foot, NOS C - Tibia, NOS D - Bone of foot, NOS Procedures: Decalcification bone/plaque Surgery Specimen Level III HEADER OPERATION: Bone biopsy foot PRE-OP DIAGNOSIS: Charcot neuropathy - left foot/ankle TISSUE SUBMITTED: A - Left foot/ankle - talus bone, B - Left foot/ankle - calcaneus bone, C - Left foot/ankle - tibia bone, D - Left foot/ankle - fibula bone MICROSCOPIC DIAGNOSIS A. Left foot/ankle, talus bone, biopsy: Pieces of bone with reactive changes. B. Left foot/ankle, calcaneus bone, biopsy: A piece of bone with reactive changes. C. Left foot/ankle, tibia bone, biopsy: A piece of bone with reactive changes. D. Left foot/ankle, fibula bone, biopsy: A piece of bone with adherent piece of soft tissue with reactive changes. SJ:margarita 09/03/18 MICROSCOPIC DESCRIPTION Slides are reviewed. GROSS DESCRIPTION A - Received in fixative is one container labeled with the patient's name and designated left foot/ankle talus bone. The specimen consists of two pieces of bone measuring in aggregate 1 x 0.5 x 0.3 cm. The entire specimen is submitted in one cassette after decalcification. B - Received in fixative is one container labeled with the patient's name and designated left foot/ankle calcaneus bone. The specimen consists of a core biopsy of porter bone measuring 1 cm in length and 0.3 cm in diameter. The entire specimen is submitted in one cassette after decalcification. C - Received in fixative is one container labeled with the patient's name and designated left foot/ankle tibia bone. The specimen consists of a core biopsy of bone measuring 0.5 cm in length and 0.3 cm in diameter. The entire specimen is submitted in one cassette after decalcification. D - Received in fixative is one container labeled with the patient's name and designated left foot/ankle fibula bone. The specimen consists of a piece of porter bone measuring 0.4 x 0.3 x 0.3 cm. The entire specimen is submitted in one cassette after decalcification. / SJ:rg 08/28/18 TC:5 CPT: 90961 x4, 99205 x4
[2018-08-28 07:05] LABS: Bedside Glucose 129 mg/dL (70-110)
--- NOTE | 2018-08-28 07:05 | RAD_ITS ---
STUDY: X-RAY - LEFT FOOT CLINICAL: Left foot and ankle biopsy. TECHNIQUE: 7 fluoroscopic views of the foot. COMPARISON: None. 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 24 seconds of fluoroscopy time was used. Electronically Signed: Aneesh Mcnamara MD at 10:51 EDT Tel , Service support , RAD/Foot min 3 Views
[2018-08-28] MEDS: Bupivacaine Mpf 0.5% 30 ML VIAL (07:40)
[2018-08-28] MEDS: Cefazolin 2 GM in 0.9% Normal Saline 100 ML IV (07:51)
--- NOTE | 2018-08-28 08:06 | OP.PCM_ITS ---
Report of Operation Date of Procedure: 08/28/18 Pre-Operative Diagnosis: Charcot Neuroarthropathy Left Foot/Ankle Post-Operative Diagnosis: Same Surgery/Procedure Performed:: Bone biospy of the left talus, calcaneus, tibia and fibula Description of Surgical Findings:: Soft bone of the talus, calcaneus and distal tibia at biopsy sites, left foot/ankle silk opener: None Type of Anesthesia:: Local MAC Specimen's removed: Left distal tibia - sent to microbiology and pathology. Left fibula - sent to microbiology and pathology. Left talus - sent to microbiology and pathology. Left calcaneus - sent to microbiology and pathology Estimated Blood Loss (mL): 2mL Description of Procedure: Indications: This is a 58 year old female with diabetes, has developed Charcot neuroarthropathy of the left foot/ankle. This is on going from the summer, and she continues to have swelling and instability to the foot/ankle. She does have history of osteomyelitis of the distal 4th and 5th rays of the left foot s/p partial amputation. We discussed options, and she elected to proceed forward with biopsies for further evaluation. This was discussed with her in detail, reviewed procedure, goals, expectations, possible benefits vs risks. She understands ultimately she is at risks of limb loss. The consent forms were reviewed with her and she freely signed them. All of her questions were answered, no guarantees were given nor implied. Operative Procedure: The patient was brought back into the operating room and was placed on the operative room table in the supine position. The patient was secured to the operating room table with a safety belt around her waist. A well padded mid calf pneumatic tourniquet was applied. The patient received MAC anesthesia per the anesthesia team. The skin was cleansed with 70% Isopropyl alcohol and a total of 13mL of 0.5% bupivacaine plain was given as a ankle block. The left lower extremity was scrubbed, prepped, and draped in the usual aseptic fashion. A time out was performed and the patient was properly identified and the surgical plan was confirmed. Pre operative antibiotics were not given until after the biopsy taken. The left foot was elevated for 3 minutes and the pneumatic tourniquet was inflated to 250mmHg. Further attention was directed to the left ankle. It was noted to have swelling, and instability present. Using a 15 scalpel blade a small linear longitudinal incision was made to the anterior lateral aspect of the ankle joint/sinus tarsi. Dissection was completed down through the subcutaneous tissue layer to the talus, anterior calcaneus and distal tibia. Under the guidance of intra-operative fluoroscopy, and using the Isai bone biopsy tray, cylindrical pieces of bone were obtained from the talus, calcaneus and distal tibia. Using a 15 scalpel blade a small linear longitudinal incision was made overlying the lateral malleolus fracture site. Dissection was completed down through the subcutaneous tissue layer to the lateral malleolus fracture site. Under the guidance of intra-operative fluoroscopy, and using the Isai bone biopsy tray, a cylindrical piece of bone was obtained from the lateral malleolus fracture site.The bone from the sites was noted to be yellow and softer than normal. These were sent to pathology and microbiology separately for further evaluation. There was no noted purulence, no visible abscess, no cellulitis present. Fluoroscopic images were saved and placed in patient's chart.The site was flushed out with copious amounts of normal saline solution. The patient was give 2 grams of IV Ancef. The skin was reapproximated using 4-0 Monocryl. The pneumatic tourniquet was deflated and there was immediate return of warmth and perfusion to the foot and ankle, CFT < 2 seconds to all toes with normal temperature present. A dressing was applied which consisted of Betadine soaked Adaptic, 4x4 gauze, Kerlix and berenice bandage. The patient tolerated the above procedure well and the anesthesia well with no complications. She was transported from the operating room to the recovery room with vital signs stable and in good condition. Post operative orders were placed, which included 3 views of the left foot and ankle, which were reviewed and noted to be stable. No acute changes. Post operative instructions were reviewed with patient and orders placed for senior living. Keep left foot/ankle protected in CAM Walker. No weightbearing left foot/ankle. She is to follow up within 1 week or sooner if needed. Grafts/Implants Used: None - Complications None
--- NOTE | 2018-08-28 08:10 | PCM.DC.POD ---
Discharge Diet: Light diet - advance as tolerated Discharge Activity: May Not Drive Weight Bearing Status: No weight bearing - Strict nonweightbearing left foot/ankle at all times Keep extremity elevated above heart level: Left Leg - Keep left foot/ankle elevated using pillows, with lateral ankle floating/offloaded, for at least 50 minutes of every hour Call your doctor if your incision/area has: Continuous Slow Oozing, Sudden Increased Bleeding, Foul Smelling Discharge Call your doctor if you observe: Fever of 101 or Higher, Coldness, Increased Pain, Shortness of breath, Chest pain, Increased palpitations (irregular heartbeat), Calf discomfort, Uncontrolled pain Cleanse incision/area with: Keep Dressing Clean & Dry - Keep dressing clean, dry and intact for first 72 hours, then remove dressing and cleanse with soap and normal saline solution - paint incision sites with betadine solution and apply overlying gauze/berenice dressing. Additional Instructions: Keep foot protected in CAM Walker boot, I do not think her custom NEZ PERCE Walker boot will fit properly at this time fit due to dressing. No physical therapy for 08/28/18 Allergies/Adverse Reactions: Allergies clindamycin [From Cleocin] Allergy (Verified 08/24/18 15:07) Itching Sulfa (Sulfonamide Antibiotics) Allergy (Verified 08/27/18 16:55) Itching ondansetron [From Zofran (as hydrochloride)] Adverse Reaction (Verified 08/27/18 16:55) Nausea Medications to take at Discharge Omeprazole 20 mg PO DAILY 12/16/16 Docusate Sodium [Colace] 100 mg PO DAILY PRN PRN 07/23/17 atorvastatin 40 mg tablet 40 mg PO QHS 06/04/18 lisinopril 20 mg tablet 20 mg PO DAILY 06/04/18 multivitamin-ferrous fumarate-folic acid 18 mg-400 mcg tablet 1 tab PO DAILY 06/04/18 Bupropion HCl [Bupropion HCl Sr] 150 mg PO BID 06/11/18 Chlorthalidone 25 mg PO DAILY 06/11/18 proMETHazine tablet [Phenergan tablet] 25 mg PO Q6H PRN PRN 06/11/18 Acetaminophen [Tylenol] 1,000 mg PO TID tablet 06/20/18 Ergocalciferol [Vitamin D] 50,000 unit PO Q7D #7 capsule 06/20/18 Gabapentin [Neurontin] 300 mg PO TID 08/24/18 Insulin Glargine [Lantus SoloStar Pen] 17 units SC QHS 08/24/18 Insulin Lispro [Humalog KwikPen] 8 unit SC TIDCM 08/24/18 Lorazepam [Ativan] 0.5 mg PO BID 08/24/18 Melatonin [Melatin] 3 mg PO QHS 08/24/18 Oxycodone HCl [Oxycontin] 10 mg PO BID 08/24/18 Oxycodone [Oxyir] 5 mg PO BID 08/24/18 Primary Care Physician: Froilan Rosenthal Chi, MD [Primary Care Provider] - Test Results: Test results from this visit will be discussed in further detail at your follow-up appointment, if applicable. Please Follow Up With: Jose Angel Luke DPM When: within 1 week, sooner if needed
--- NOTE | 2018-08-28 08:14 | DCINST_ITS ---
Discharge Diet: Light diet - advance as tolerated Discharge Activity: May Not Drive Weight Bearing Status: No weight bearing - Strict nonweightbearing left foot/ankle at all times Keep extremity elevated above heart level: Left Leg - Keep left foot/ankle elevated using pillows, with lateral ankle floating/offloaded, for at least 50 minutes of every hour Call your doctor if your incision/area has: Continuous Slow Oozing, Sudden Increased Bleeding, Foul Smelling Discharge Call your doctor if you observe: Fever of 101 or Higher, Coldness, Increased Pain, Shortness of breath, Chest pain, Increased palpitations (irregular heartbeat), Calf discomfort, Uncontrolled pain Cleanse incision/area with: Keep Dressing Clean & Dry - Keep dressing clean, dry and intact for first 72 hours, then remove dressing and cleanse with soap and normal saline solution - paint incision sites with betadine solution and apply overlying gauze/berenice dressing. Additional Instructions: Keep foot protected in CAM Walker boot, I do not think her custom [place] Walker boot will fit properly at this time fit due to dressing. No physical therapy for 08/28/18 Allergies/Adverse Reactions: Allergies clindamycin [From Cleocin] Allergy (Verified 08/24/18 15:07) Itching Sulfa (Sulfonamide Antibiotics) Allergy (Verified 08/27/18 16:55) Itching ondansetron [From Zofran (as hydrochloride)] Adverse Reaction (Verified 08/27/18 16:55) Nausea Medications to take at Discharge Omeprazole 20 mg PO DAILY 12/16/16 Docusate Sodium [Colace] 100 mg PO DAILY PRN PRN 07/23/17 atorvastatin 40 mg tablet 40 mg PO QHS 06/04/18 lisinopril 20 mg tablet 20 mg PO DAILY 06/04/18 multivitamin-ferrous fumarate-folic acid 18 mg-400 mcg tablet 1 tab PO DAILY 06/04/18 Bupropion HCl [Bupropion HCl Sr] 150 mg PO BID 06/11/18 Chlorthalidone 25 mg PO DAILY 06/11/18 proMETHazine tablet [Phenergan tablet] 25 mg PO Q6H PRN PRN 06/11/18 Acetaminophen [Tylenol] 1,000 mg PO TID tablet 06/20/18 Ergocalciferol [Vitamin D] 50,000 unit PO Q7D #7 capsule 06/20/18 Gabapentin [Neurontin] 300 mg PO TID 08/24/18 Insulin Glargine [Lantus SoloStar Pen] 17 units SC QHS 08/24/18 Insulin Lispro [Humalog KwikPen] 8 unit SC TIDCM 08/24/18 Lorazepam [Ativan] 0.5 mg PO BID 08/24/18 Melatonin [Melatin] 3 mg PO QHS 08/24/18 Oxycodone HCl [Oxycontin] 10 mg PO BID 08/24/18 Oxycodone [Oxyir] 5 mg PO BID 08/24/18 Primary Care Physician: Froilan Rosenthal Chi, MD [Primary Care Provider] - Test Results: Test results from this visit will be discussed in further detail at your follow- up appointment, if applicable. Please Follow Up With: Jose Angel Luke DPM When: within 1 week, sooner if needed
--- NOTE | 2018-08-28 08:45 | RAD_ITS ---
STUDY: X-RAY - LEFT ANKLE REASON FOR EXAM: Postop bone biopsy. TECHNIQUE: 3 view(s) of the ankle. COMPARISON: Radiographs 06/15/2018. FINDINGS: There is a healing nondisplaced fracture of the distal fibular diaphysis. There is widening of the lateral ankle mortise. There is fragmentation at the talonavicular and calcaneocuboid articulations consistent with neuropathic osteoarthropathy. There is soft tissue swelling and heterotopic ossification. RAD/Ankle min 3 Views IMPRESSION: Healing nondisplaced fracture of the distal fibular diaphysis. Neuropathic osteoarthropathy. Soft tissue swelling and heterotopic ossification. Electronically Signed: Aneesh Mcnamara MD at 10:55 EDT Tel , Service support ,
--- NOTE | 2018-08-28 08:55 | RAD_ITS ---
STUDY: X-RAY - LEFT FOOT CLINICAL: Postop bone biopsy. TECHNIQUE: 3 view(s) of the foot. COMPARISON: Radiographs 06/15/2018. FINDINGS: There is fragmentation of the head of the talus at the talonavicular articulation and calcaneus at the posterior subtalar and calcaneocuboid articulations consistent with neuropathic osteoarthropathy. There is amputation of the proximal fourth and fifth metatarsals as on the prior study. Normal metatarsophalangeal joint of the great toe. Normal tibial and fibular sesamoid bones. Normal interphalangeal joint of the great toe. Normal phalanges of the great toe. Normal second and third metatarsophalangeal joints. Normal interphalangeal joints and phalanges of the second and third toes. There is heterotopic ossification adjacent to the distal tibia and fibula. There is soft tissue swelling and a small pocket soft tissue gas at the medial aspect of the hindfoot from recent biopsy. RAD/Foot min 3 Views IMPRESSION: Neuropathic osteoarthropathy and heterotopic ossification without significant change. Electronically Signed: Aneesh Mcnamara MD at 10:56 EDT Tel , Service support ,
== END 2018-08-28 10:09 | disposition home or self-care (01) ==
LOC: SDC 06:00 → AC 06:03
PROVIDERS: Family Provider Family Medicine Geriatric Medicine; PCP Family Medicine Geriatric Medicine; Referring Provider Podiatrist; Visit Provider Podiatrist
PROC: (CPT 20240; principal; 2018-08-28 07:15)
DX: E11.610 Type 2 diabetes mellitus with diabetic neuropathic arthropathy (principal); E11.42 Type 2 diabetes mellitus with diabetic polyneuropathy; Z79.4 Long term (current) use of insulin; Z89.422 Acquired absence of other left toe(s); I10 Essential (primary) hypertension; I25.2 Old myocardial infarction; F32.9 Major depressive disorder, single episode, unspecified; F41.9 Anxiety disorder, unspecified; E55.9 Vitamin D deficiency, unspecified; B35.1 Tinea unguium; M87.072 Idiopathic aseptic necrosis of left ankle; S92.002S Unspecified fracture of left calcaneus, sequela; S82.65XS Nondisplaced fracture of lateral malleolus of left fibula, sequela; K21.9 Gastro-esophageal reflux disease without esophagitis; F17.200 Nicotine dependence, unspecified, uncomplicated; Z86.14 Personal history of Methicillin resistant Staphylococcus aureus infection; Z79.899 Other long term (current) drug therapy
CPT/HCPCS: 01480; 20240; 27620; 73610; 73630; 76000; 82962; 87015; 87070; 87075; 87102; 87116; 87205; 87206; 88304; 88311; J7120

== ENCOUNTER → 2018-09-24 10:41 | Outpatient (CLI) | payer MEDICAID, SELFPAY ==
--- NOTE | 2018-09-30 19:07 | LEAS_ITS ---
Arterial Study - Arterial Study Arterial Study: This is a 58-year-old female with a history of diabetes mellitus, hypertension, peripheral neuropathy, and smoking. The patient has had prior left toe amputations. Suspecting the presence of atherosclerotic peripheral arterial occlusive disease, the patient was brought to the noninvasive vascular laboratory at this time for the purpose of bilateral noninvasive lower extremity arterial assessment. Doppler signal assessment was used to evaluate the pulses at ankle level bilaterally. The posterior tibial and dorsalis pedis pulses were biphasic bilaterally. Segmental limb pressures were obtained bilaterally. The right low thigh pressure was measured at 219 mmHg. The right calf pressure was measured at 128 mmHg. The right ankle pressure, as determined by posterior tibial pulse, was measured at 144 mmHg. The right ankle pressure, as determined by dorsalis pedis pulse, was measured at 149 mmHg. The right digital pressure was measured at 119 mmHg. The left low thigh pressure was measured at 178 mmHg. The left calf pressure was measured at 156 mmHg. The left ankle pressure, as determined by posterior tibial pulse, was measured at 144 mmHg. The left ankle pressure, as determined by dorsalis pedis pulse, was measured at 173 mmHg. The left digital pressure was measured at 124 mmHg. Pulse?volume recordings were obtained bilaterally and segmentally. Waveform amplitudes appeared to be satisfactory at low thigh, calf, and ankle levels bilaterally. Waveform amplitudes appeared to be diminished at digital level of the left. Resting ankle?brachial indices were calculated bilaterally. The resting right ankle?brachial index was calculated to be 0.90. The resting left ankle?brachial index was calculated to be 1.05. Digital?brachial indices were calculated bilaterally. The right digital- brachial index was calculated to be 0.72. The left digital-brachial index was calculated to be 0.75. Impression: Based upon the findings of this resting noninvasive lower extremity arterial study, there is no evidence of significant atherosclerotic peripheral arterial occlusive disease in the lower extremities bilaterally. Biphasic waveforms are noted at ankle level bilaterally. Resting ankle?brachial indices are relatively normal bilaterally, though low-normal on the right. Digital?brachial indices are bilaterally normal.
== END ==
PROVIDERS: Family Provider Family Medicine; PCP Family Medicine; Referring Provider Podiatrist; Visit Provider Podiatrist
DX: M14.671 Charcot's joint, right ankle and foot (principal); E11.40 Type 2 diabetes mellitus with diabetic neuropathy, unspecified
CPT/HCPCS: 93923

== ENCOUNTER → 2018-09-26 13:56 | Outpatient (CLI) | payer MEDICAID, SELFPAY ==
--- NOTE | 2018-09-26 13:58 | ECHOD_ITS ---
Reason For Study: ARRYTHMIA-OTHER Procedure This was a 2D Doppler, Color Flow transthoracic echocardiogram. Exam performed in department. Left Ventricle Normal size and thickness. The estimated ejection fraction is 65 %. Normal diastology for age. No regional wall motion abnormalities noted. Right Ventricle Normal size and thickness. Normal systolic function. Atria Normal left atrium. Normal right atrium. Normal atrial septum. Mitral Valve The mitral valve is structurally normal. No prolapse or stenosis seen. Tricuspid Valve Normal tricuspid valve. Trivial tricuspid valve insufficiency. Right ventricular systolic pressure estimated to be 39 mmHg. Mild pulmonary hypertension. Aortic Valve Trisinus/trileaflet aortic valve. Mild focal aortic valve calcification. Mild diffuse aortic valve thickening. Mild aortic stenosis. Peak aortic valve gradient 23 mmHg. Mean aortic valve gradient 13 mmHg. Pulmonic Valve Normal pulmonic valve. Great Vessels Normal aortic root. Normal arch. Normal inferior vena cava. Inferior vena cava collapse with sniff. Pericardium/Pleural No pericardial effusion. MMode/2D Measurements & Calculations LVIDd: 3.9 cm IVSd: 1.2 cm LVOT diam: 2.0 cm LVIDs: 2.1 cm LVPWd: 1.1 cm LVOT area: 3.1 cm2 RVDd: 2.6 cm FS: 45.4 % Ao root diam: 2.9 cm LAV(MOD-bp): 45.1 ml LVAd ap4: 30.4 cm2 LAV(MOD-bp) Indexed: 24.3 ml/m2 EDV(MOD-sp4): 92.2 ml LAV(MOD-sp2): 54.7 ml EDV(sp4-el): 97.7 ml LAV(MOD-sp4): 36.1 ml LVAs ap4: 14.1 cm2 ESV(MOD-sp4): 26.3 ml ESV(sp4-el): 26.7 ml EF(MOD-sp4): 71.4 % EF(sp4-el): 72.7 % SV(MOD-sp4): 65.8 ml SV(sp4-el): 71.0 ml LA A4 area: 14.9 cm2 LA dimension(2D): 3.9 cm RA A4 area: 11.6 cm2 Time Measurements MV dec time: 0.31 sec Doppler Measurements & Calculations MV E max earl: 97.7 cm/sec Lat Peak E' Earl: 8.6 cm/sec Med Peak E' Earl: 6.6 cm/sec MV A max earl: 98.8 cm/sec E/E' lat: 11.4 E/E' med: 14.8 MV E/A: 0.99 Ao V2 max: 241.7 cm/sec LV V1 max: 118.6 cm/sec SV(LVOT): 97.0 ml Ao max P.4 mmHg LV V1 max P.6 mmHg Ao V2 mean: 174.3 cm/sec LV V1 mean P.3 mmHg Ao mean P.3 mmHg LV V1 mean: 84.3 cm/sec Ao V2 VTI: 53.1 cm LV V1 VTI: 31.5 cm HALI(I,D): 1.8 cm2 HALI(V,D): 1.5 cm2 PA V2 max: 110.8 cm/sec TR max earl: 291.4 cm/sec TR max P.0 mmHg Interpretation Summary The estimated ejection fraction is 65 %. Normal diastology for age. Trivial tricuspid valve insufficiency. Right ventricular systolic pressure estimated to be 39 mmHg. Mild pulmonary hypertension. Mild aortic stenosis. There is no comparison study available. Ordering Physician: Luis Castañeda Referring Physician: SOLEDAD MOORE Performed By: Crystal Baumann RDCS
--- NOTE | 2018-09-26 15:40 | LEAS ---
Arterial Study - Arterial Study Arterial Study: This is a 58-year-old female with a history of diabetes mellitus, hypertension, neuropathy, smoking, and prior left toe amputation. Suspecting the presence of atherosclerotic peripheral arterial occlusive disease, the patient was brought to the noninvasive vascular laboratory at this time for the purpose of bilateral noninvasive lower extremity arterial assessment. Doppler signal assessment was used to evaluate the pulses at ankle level bilaterally. The posterior tibial and dorsalis pedis pulses were biphasic bilaterally. Segmental limb pressures were obtained bilaterally. The right low thigh pressure was measured at 219 mmHg. The right calf pressure was measured at 128 mmHg. The right ankle pressure, as determined by posterior tibial pulse, was measured at 144 mmHg. The right ankle pressure, as determined by dorsalis pedis pulse, was measured at 149 mmHg. The right digital pressure was measured at 119 mmHg. The left low thigh pressure was measured at 178 mmHg. The left calf pressure was measured at 156 mmHg. The left ankle pressure, as determined by posterior tibial pulse, will measured at 144 mmHg. The left ankle pressure, as determined by dorsalis pedis pulse, was measured at 173 mmHg. The left digital pressure was measured at 124 mmHg. Pulse-volume recordings were obtained bilaterally and segmentally. Waveform amplitudes appeared to be satisfactory at all levels bilaterally, but for left digital level, which was mildly diminished. Resting ankle?brachial indices were calculated bilaterally. The resting right ankle?brachial index was calculated to be 0.90. The resting left ankle-brachial index was calculated to be 1.05. Digital?brachial indices were calculated bilaterally. The right digital?brachial index was calculated to be 0.72. The left digital?brachial index was calculated to be 0.75. Impression: Based upon the findings of this resting noninvasive lower extremity arterial study, there is no evidence of significant atherosclerotic peripheral arterial occlusive disease in the lower extremities bilaterally. Biphasic waveforms are noted at ankle level bilaterally. The resting right ankle?brachial index is low-normal. The resting left ankle-brachial index is normal. Digital?brachial indices are bilaterally normal. In summary, this represents a normal resting noninvasive lower extremity arterial study bilaterally.
--- OUTSIDE RECORDS SUMMARY | 2018-11-21 23:41 | XMS RPT_ITS ---
:1960 Author Organization OH[employer] Support Name Relationship Address Phone NINA MYERSEN Unavailable [address] + [place] [address] D Unavailable Unavailable Unavailable NINA MYERSEN Unavailable [address] + [place] [address] D Unavailable Unavailable Unavailable NINA MYERSEN Unavailable [address] + [place] [address] D Unavailable Unavailable Unavailable NINA MYERSEN Unavailable [address] + [place] [address] D Unavailable Unavailable Unavailable CADENCE BUCKA LATOSHA Unavailable [address] + [place] [address] D Unavailable Unavailable Unavailable CADENCE BUCKANINAEN Unavailable [address] + [place] [address] D Unavailable Unavailable Unavailable NINA VILAEN Unavailable Unavailable + D Unavailable Unavailable Unavailable D Unavailable Unavailable Unavailable LEROY, ROMULO Unavailable Unavailable + D Unavailable Unavailable Unavailable LEROY, ROMULO Unavailable Unavailable + D Unavailable Unavailable Unavailable LEROY, ROMULO Unavailable Unavailable + D Unavailable Unavailable Unavailable LEROY, ROMULO Unavailable Unavailable + D Unavailable Unavailable Unavailable LEROY, ROMULO Unavailable Unavailable + D Unavailable Unavailable Unavailable LEROY, ROMULO Unavailable Unavailable + D Unavailable Unavailable Unavailable LEROY, ROMULO Unavailable Unavailable + D Unavailable Unavailable Unavailable LEROY, ROMULO Unavailable [address] + [place] [address] D Unavailable Unavailable Unavailable LEROY, ROMULO Unavailable [address] + [place] [address] D Unavailable Unavailable Unavailable LEROY, ROMULO Unavailable [address] + [place] [address] D Unavailable Unavailable Unavailable LEROY, ROMULO Unavailable [address] + [place] [address] D Unavailable Unavailable Unavailable LEROY, ROMULO Unavailable [address] + [place] [address] ELISSA KRAUSE Unavailable [address] + [place] [address] UE Unavailable Unavailable Unavailable YUGEORGINAKristin MEENA Unavailable [address] + [place] [address] Care Team Providers Name Role Phone Galo, Froilan Chi Attending Unavailable Jose Angel Luke Attending Unavailable Jose Angel Luke Referring Unavailable Galo, Froilan Chi Primary Care Unavailable Jose Angel Luke Attending Unavailable Jose Angel Luke Referring Unavailable Galo, Froilan Chi Primary Care Unavailable Marta Santos Attending Unavailable Luis Castañeda Attending Unavailable Galo, Froilan Chi Referring Unavailable Galo, Froilan Chi Primary Care Unavailable Galo, Froilan Chi Primary Care Unavailable Erika Jara Attending Unavailable SouthernErika Referring Unavailable Noe, Ferdinand Admitting Unavailable Noe, Ferdinand Referring Unavailable Galo, Froilan Chi Primary Care Unavailable Jose Angel Luke Consulting Unavailable Hien Jacobs Attending Unavailable Joey Pagan Consulting Unavailable Noe, Ferdinand Admitting Unavailable Noe, Ferdinand Attending Unavailable Noe, Ferdinand Referring Unavailable Galo, Froilan Chi Primary Care Unavailable Jose Angel Luke Consulting Unavailable Noe, Ferdinand Consulting Unavailable Noe, Ferdinand Admitting Unavailable Noe, Ferdinand Attending Unavailable Noe, Ferdinand Referring Unavailable Galo, Froilan Chi Primary Care Unavailable Jose Angel Luke Consulting Unavailable Noe, Ferdinand Consulting Unavailable Noe, Ferdinand Admitting Unavailable Noe, Ferdinand Attending Unavailable Noe, Ferdinand Referring Unavailable Galo, Froilan Chi Primary Care Unavailable Leonardo Lukerey Consulting Unavailable Noe, Ferdinand Consulting Unavailable Noe, Ferdinand Admitting Unavailable JojuaneriDami Attending Unavailable Noe, Ferdinand Referring Unavailable Galo, Froilan Chi Primary Care Unavailable Wunning, Jose Angel Consulting Unavailable Ej, Joey Consulting Unavailable Jopperi, Dami Consulting Unavailable Noe, Ferdinand Admitting Unavailable Paintsil, Slidell Attending Unavailable Noe, Ferdinand Referring Unavailable Galo, Froilan Chi Primary Care Unavailable Wunning, Jose Angel Consulting Unavailable Ej, Joey Consulting Unavailable Paintsil, Slidell Consulting Unavailable Noe, Ferdinand Admitting Unavailable Paintsil, Slidell Attending Unavailable Noe, Ferdinand Referring Unavailable Galo, Froilan Chi Primary Care Unavailable Wunning, Jose Angel Consulting Unavailable Ej, Joey Consulting Unavailable Paintsil, Slidell Consulting Unavailable Arturnning, Jose Angel Attending Unavailable Wunning, Jose Angel Referring Unavailable Galo, Froilan Chi Primary Care Unavailable Wunning, Jose Angel Attending Unavailable Wunning, Jose Angel Referring Unavailable Galo, Froilan Chi Primary Care Unavailable WunningJose Angel Attending Unavailable Galo, Froilan Chi Primary Care Unavailable Wunning, Jose Angel Attending Unavailable Wunning, Jose Angel Referring Unavailable Moore, Tariq Primary Care Unavailable Galo, Froilan Chi Consulting Unavailable Luis Castañeda Attending Unavailable Luis Castañeda Referring Unavailable Moore, Tariq Primary Care Unavailable Galo, Froilan Chi Consulting Unavailable Luis Castañeda Attending Unavailable Luis Castañeda Referring Unavailable Moore, Tariq Primary Care Unavailable Galo, Froilan Chi Consulting Unavailable Luis Castañeda Consulting Unavailable Luis Castañeda Attending Unavailable Luis Castañeda Referring Unavailable Moore, Tariq Primary Care Unavailable PROBLEMS PROBLEMS DATE TYPE CONDITION / CODE ATTENDING STATUS SOURCE 09/26/2018 Unknown R94.31 - Abnormal Luis Castañeda electrocardiogram Community [ECG] [EKG] / Hospital R94.31(ICD-10) Repository 09/26/2018 Unknown I10 - Essential Luis Castañeda (primary) hypertension Community / I10(ICD-10) Hospital Repository 09/26/2018 Unknown E11.9 - Type 2 Luis Castañeda Active [place] diabetes mellitus Community without complications Hospital / E11.9(ICD-10) Repository 06/20/2018 Unknown M14.672 - Charcot's Paintsil, Slidell Active [place] joint, left ankle and Community foot / M14.672(ICD-10) Hospital Repository 06/05/2018 Unknown E78.5 - Garry Luis Active [place] Hyperlipidemia, Community unspecified / Hospital E78.5(ICD-10) Repository 01/19/2018 Unknown E55.9 - Vitamin D Galo, Froilan Chi Active [place] deficiency, Community unspecified / Hospital E55.9(ICD-10) Repository PROCEDURES PROCEDURES No Procedure Records FoundRESULTS RESULTS STRESS TEST ECHO W/O Observed: 10/10/2018 Status: F Source: [place] [facility] 3:08 PM [facility] REPOSITORY [facility] Cardiovascular Services [address] [place] [address] Stress Test Echo w/o Contrast MR#: [id number] Acct: [id number] Name: MEREDITH ALBERTO Rep #: [id number] : 1960 58 From: Luis Castañeda MD Primary Care: Tariq Moore MD Status: REG CLI Ordering Dr: Luis Castañeda MD Sex: F C Reason For Study: ABN. EKG Stress Results Protocol: Dobutamine Protocol Maximum Predicted HR: 160 bpm Target HR: 136 bpm % Maximum Predicted HR: 85 % Heart Stage Duration Rate BP Dose Comment (mm:ss) (bpm) BASELINE 78 163/80 STAGE 1 3:00 86 145/6610.00 STAGE 2 3:00 108 128/6720.00 STAGE 3 3:00 117 115/5830.00 0.25MG ATROPINE, BECAME VERY ANXIOUS AND RESTLESS IN THE BED. STAGE 4 4:55 136 .00NO CHEST PAIN RECOVERY 99 119/65 Stress Duration: 13:55 mm:ss Maximum Stress HR: 136 bpm Baseline Echocardiogram Findings The estimated ejection fraction is 65 %. Stress Echo Wall motion Data Resting WM Intermediate WM Stress WM Resting Wall Motion Wall Motion Stress No regional wall motion No regional wall motion abnormalities noted. abnormalities noted. EKG Data Normal intervals are noted. The patient was titrated from 10 mcg to a maximum of 40 mcg of dobutamine during the stress. The maximum heart rate attained was 136 beats per minute. This was 85% of maximum predicted heart rate. During dobutamine infusion, there were no ST or T wave changes noted to suggest ischemia. No arrhythmias noted. No clinical angina was noted. Interpretation Summary The estimated ejection fraction is 65 %. Normal, adequate, dobutamine echocardiogram. Negative for ischemia by EKG and echocardiographic criteria. No anginal symptoms noted. No arrhythmias noted. Appropriate blood pressure response to dobutamine. Patient developed a 121 mm intracavitary gradient at peak infusion. Test terminated due to the attainment of target heart rate. Final LVEF is 75%. No complications. Ordering Physician: Luis Castañeda Referring Physician: Luis Castañeda Performed By: Chrissie Jane RDCS, RVT 10/10/18 1507 Date Luis Castañeda MD CC: Luis Castañeda MD; Tariq Moore MD Date Dictated: 10/10/18 1333 Date Transcribed: 10/10/18 150 Data Security Coordinator: Signed LOWER EXT ARTERIAL Observed: 09/30/2018 Status: F Source: [facility] 7:[address] [facility] REPOSITORY [facility] Cardiovascular Services [address] [place] [address] [place] [address] 09/30/18 1855 MR#: [id number] Acct: [id number] Name: MEREDITH ALBERTO Rep #: [id number] : 1960 58 From: Seamus Hernandez MD Attending Dr: Jose Angel Luke DPM Status: REG CLI Ordering Dr: Date: 09/30/18 Location: [facility] Sex: F C Admitted: Arterial Study - Arterial Study Arterial Study: This is a 58-year-old female with a history of diabetes mellitus, hypertension, peripheral neuropathy, and smoking. The patient has had prior left toe amputations. Suspecting the presence of atherosclerotic peripheral arterial occlusive disease, the patient was brought to the noninvasive vascular laboratory at this time for the purpose of bilateral noninvasive lower extremity arterial assessment. Doppler signal assessment was used to evaluate the pulses at ankle level bilaterally. The posterior tibial and dorsalis pedis pulses were biphasic bilaterally. Segmental limb pressures were obtained bilaterally. The right low thigh pressure was measured at 219 mmHg. The right calf pressure was measured at 128 mmHg. The right ankle pressure, as determined by posterior tibial pulse, was measured at 144 mmHg. The right ankle pressure, as determined by dorsalis pedis pulse, was measured at 149 mmHg. The right digital pressure was measured at 119 mmHg. The left low thigh pressure was measured at 178 mmHg. The left calf pressure was measured at 156 mmHg. The left ankle pressure, as determined by posterior tibial pulse, was measured at 144 mmHg. The left ankle pressure, as determined by dorsalis pedis pulse, was measured at 173 mmHg. The left digital pressure was measured at 124 mmHg. Pulse volume recordings were obtained bilaterally and segmentally. Waveform amplitudes appeared to be satisfactory at low thigh, calf, and ankle levels bilaterally. Waveform amplitudes appeared to be diminished at digital level of the left. Resting ankle brachial indices were calculated bilaterally. The resting right ankle brachial index was calculated to be 0.90. The resting left ankle brachial index was calculated to be 1.05. Digital brachial indices were calculated bilaterally. The right digital-brachial index was calculated to be 0.72. The left digital-brachial index was calculated to be 0.75. Impression: Based upon the findings of this resting noninvasive lower extremity arterial study, there is no evidence of significant atherosclerotic peripheral arterial occlusive disease in the lower extremities bilaterally. Biphasic waveforms are noted at ankle level bilaterally. Resting ankle brachial indices are relatively normal bilaterally, though low-normal on the right. Digital brachial indices are bilaterally normal. 09/30/181906 <Electronically signed by Seamus Hernandez MD> Date Seamus Hernandez MD CC: Jose Angel Luke DPM; Tariq Moore MD Date Dictated: 09/30/181854 Date Transcribed: 09/30/181854 Data Security Coordinator: LAW Vargas LOWER EXT ARTERIAL Observed: 09/26/2018 Status: F Source: [facility] 3[facility]48 PM [facility] Cardiovascular Services [address] [place] [address] 09/26/18 1540 MR#: [id number] Acct: [id number] Name: MEREDITH ALBERTO Rep #: [id number] : 1960 58 From: Seamus Hernandez MD Attending Dr: Luis Castañeda MD Status: REG CLI Ordering Dr: Date: 09/26/18 Location: [facility] Sex: F C Admitted: Arterial Study - Arterial Study Arterial Study: This is a 58-year-old female with a history of diabetes mellitus, hypertension, neuropathy, smoking, and prior left toe amputation. Suspecting the presence of atherosclerotic peripheral arterial occlusive disease, the patient was brought to the noninvasive vascular laboratory at this time for the purpose of bilateral noninvasive lower extremity arterial assessment. Doppler signal assessment was used to evaluate the pulses at ankle level bilaterally. The posterior tibial and dorsalis pedis pulses were biphasic bilaterally. Segmental limb pressures were obtained bilaterally. The right low thigh pressure was measured at 219 mmHg. The right calf pressure was measured at 128 mmHg. The right ankle pressure, as determined by posterior tibial pulse, was measured at 144 mmHg. The right ankle pressure, as determined by dorsalis pedis pulse, was measured at 149 mmHg. The right digital pressure was measured at 119 mmHg. The left low thigh pressure was measured at 178 mmHg. The left calf pressure was measured at 156 mmHg. The left ankle pressure, as determined by posterior tibial pulse, will measured at 144 mmHg. The left ankle pressure, as determined by dorsalis pedis pulse, was measured at 173 mmHg. The left digital pressure was measured at 124 mmHg. Pulse-volume recordings were obtained bilaterally and segmentally. Waveform amplitudes appeared to be satisfactory at all levels bilaterally, but for left digital level, which was mildly diminished. Resting ankle brachial indices were calculated bilaterally. The resting right ankle brachial index was calculated to be 0.90. The resting left ankle-brachial index was calculated to be 1.05. Digital brachial indices were calculated bilaterally. The right digital brachial index was calculated to be 0.72. The left digital brachial index was calculated to be 0.75. Impression: Based upon the findings of this resting noninvasive lower extremity arterial study, there is no evidence of significant atherosclerotic peripheral arterial occlusive disease in the lower extremities bilaterally. Biphasic waveforms are noted at ankle level bilaterally. The resting right ankle brachial index is low-normal. The resting left ankle-brachial index is normal. Digital brachial indices are bilaterally normal. In summary, this represents a normal resting noninvasive lower extremity arterial study bilaterally. 09/26/18 1548 <Electronically signed by Seamus Hernandez MD> Date Seamus Hernandez MD CC: Luis Castañeda MD; Tariq Moore MD Date Dictated: 09/26/181539 Date Transcribed: 09/26/181539 Data Security Coordinator: LAW Vargas ECHOCARDIOGRAM COMPLETE Observed: 09/26/2018 Status: F Source: [place] 3:[address] [facility] REPOSITORY [facility] Cardiovascular Services [facility] [place] [address] Echo Complete 09/26/18 1400 MR#: [id number] Acct: [id number] Name: MEREDITH ALBERTO Rep #: [id number] : 1960 58 From: Luis Castañeda MD Attending Dr: Luis Castañeda MD Status: REG CLI Ordering Dr: Luis Castañeda MD Date: 09/26/18 Location: [facility] Sex: F C Admitted: Reason For Study: ARRYTHMIA-OTHER Procedure This was a 2D Doppler, Color Flow transthoracic echocardiogram. Exam performed in department. Left Ventricle Normal size and thickness. The estimated ejection fraction is 65 %. Normal diastology for age. No regional wall motion abnormalities noted. Right Ventricle Normal size and thickness. Normal systolic function. Atria Normal left atrium. Normal right atrium. Normal atrial septum. Mitral Valve The mitral valve is structurally normal. No prolapse or stenosis seen. Tricuspid Valve Normal tricuspid valve. Trivial tricuspid valve insufficiency. Right ventricular systolic pressure estimated to be 39 mmHg. Mild pulmonary hypertension. Aortic Valve Trisinus/trileaflet aortic valve. Mild focal aortic valve calcification. Mild diffuse aortic valve thickening. Mild aortic stenosis. Peak aortic valve gradient 23 mmHg. Mean aortic valve gradient 13 mmHg. Pulmonic Valve Normal pulmonic valve. Great Vessels Normal aortic root. Normal arch. Normal inferior vena cava. Inferior vena cava collapse with sniff. Pericardium/Pleural No pericardial effusion. MMode/2D Measurements AND Calculations LVIDd: 3.9 cm IVSd: 1.2 cm LVOT diam: 2.0 cm LVIDs: 2.1 cm LVPWd: 1.1 cm LVOT area: 3.1 cm2 RVDd: 2.6 cm FS: 45.4 % Ao root diam: 2.9 cm LAV(MOD-bp): 45.1 ml LVAd ap4: 30.4 cm2 LAV(MOD-bp) Indexed: 24.3 ml/m2 EDV(MOD-sp4): 92.2 ml LAV(MOD-sp2): 54.7 ml EDV(sp4-el): 97.7 ml LAV(MOD-sp4): 36.1 ml LVAs ap4: 14.1 cm2 ESV(MOD-sp4): 26.3 ml ESV(sp4-el): 26.7 ml EF(MOD-sp4): 71.4 % EF(sp4-el): 72.7 % SV(MOD-sp4): 65.8 ml SV(sp4-el): 71.0 ml LA A4 area: 14.9 cm2 LA dimension(2D): 3.9 cm RA A4 area: 11.6 cm2 Time Measurements MV dec time: 0.31 sec Doppler Measurements AND Calculations MV E max earl: 97.7 cm/sec Lat Peak E' Earl: 8.6 cm/sec Med Peak E' Earl: 6.6 cm/sec MV A max earl: 98.8 cm/sec E/E' lat: 11.4 E/E' med: 14.8 MV E/A: 0.99 Ao V2 max: 241.7 cm/sec LV V1 max: 118.6 cm/sec SV(LVOT): 97.0 ml Ao max P.4 mmHg LV V1 max P.6 mmHg Ao V2 mean: 174.3 cm/sec LV V1 mean P.3 mmHg Ao mean P.3 mmHg LV V1 mean: 84.3 cm/sec Ao V2 VTI: 53.1 cm LV V1 VTI: 31.5 cm HALI(I,D): 1.8 cm2 HALI(V,D): 1.5 cm2 PA V2 max: 110.8 cm/sec TR max earl: 291.4 cm/sec TR max P.0 mmHg Interpretation Summary The estimated ejection fraction is 65 %. Normal diastology for age. Trivial tricuspid valve insufficiency. Right ventricular systolic pressure estimated to be 39 mmHg. Mild pulmonary hypertension. Mild aortic stenosis. There is no comparison study available. Ordering Physician: Luis Castañeda Referring Physician: TARIQ MOORE Performed By: Crystal Baumann [facility] 09/26/18 1521 Date Luis Castañeda MD CC: Luis Castañeda MD; Tariq Moore MD Date Dictated: 09/26/18 1400 Date Transcribed: 09/26/181520 Data Security Coordinator: Signed CNCO Observed: 09/04/2018 Status: COMPLETED Source: [place] 12:00 AM [facility] REPOSITORY Letter Text [address] [place] [address] 09/04/2018 Meredith Alberto [id number] Dear Meredith , As your healthcare provider, our records indicate that you are due for colorectal cancer screening. This is extremely important if you have any family history of colon cancer as well as to the general population over the age of 50. A colonoscopy is a preventative test that we offer to complete this screening. Most insurances will pay for this test without any out of pocket expense to the patient. We have been unsuccessful in reaching you by phone to discuss this procedure. Please contact our schedulers at [phone] schedule an appointment or contact your primary care physician if you have any questions regarding colon cancer screening. As always, your health is of primary concern to our practice. We look forward to hearing from you. Sincerely, [facility] OPERATIVE REPORT Observed: 08/28/2018 Status: F Source: [place] 7:27 PM [facility] REPOSITORY [facility] Medical Records Department [address] [place] [address] Operative Report 08/28/18 0804 MR#: [id number] Acct: [id number] Name: MEREDITH ALBERTO Rep #: [id number] : 1960 58 From: Jose Angel Luke DPM PCP: Galo Froilan ROBERTS Chi Status: DEP [facility] Y Location: [facility] Report of Operation Date of Procedure: 08/28/18 Pre-Operative Diagnosis: Charcot Neuroarthropathy Left Foot/Ankle Post-Operative Diagnosis: Same Surgery/Procedure Performed:: Bone biospy of the left talus, calcaneus, tibia and fibula Description of Surgical Findings:: Soft bone of the talus, calcaneus and distal tibia at biopsy sites, left foot/ankle radiation control worker: None Type of Anesthesia:: Local MAC Specimen's removed: Left distal tibia - sent to microbiology and pathology. Left fibula - sent to microbiology and pathology. Left talus - sent to microbiology and pathology. Left calcaneus - sent to microbiology and pathology Estimated Blood Loss (mL): 2mL Description of Procedure: Indications: This is a 58 year old female with diabetes, has developed Charcot neuroarthropathy of the left foot/ankle. This is on going from the summer, and she continues to have swelling and instability to the foot/ankle. She does have history of osteomyelitis of the distal 4th and 5th rays of the left foot s/p partial amputation. We discussed options, and she elected to proceed forward with biopsies for further evaluation. This was discussed with her in detail, reviewed procedure, goals, expectations, possible benefits vs risks. She understands ultimately she is at risks of limb loss. The consent forms were reviewed with her and she freely signed them. All of her questions were answered, no guarantees were given nor implied. Operative Procedure: The patient was brought back into the operating room and was placed on the operative room table in the supine position. The patient was secured to the operating room table with a safety belt around her waist. A well padded mid calf pneumatic tourniquet was applied. The patient received MAC anesthesia per the anesthesia team. The skin was cleansed with 70% Isopropyl alcohol and a total of 13mL of 0.5% bupivacaine plain was given as a ankle block. The left lower extremity was scrubbed, prepped, and draped in the usual aseptic fashion. A time out was performed and the patient was properly identified and the surgical plan was confirmed. Pre operative antibiotics were not given until after the biopsy taken. The left foot was elevated for 3 minutes and the pneumatic tourniquet was inflated to 250mmHg. Further attention was directed to the left ankle. It was noted to have swelling, and instability present. Using a 15 scalpel blade a small linear longitudinal incision was made to the anterior lateral aspect of the ankle joint/sinus tarsi. Dissection was completed down through the subcutaneous tissue layer to the talus, anterior calcaneus and distal tibia. Under the guidance of intra-operative fluoroscopy, and using the Isai bone biopsy tray, cylindrical pieces of bone were obtained from the talus, calcaneus and distal tibia. Using a 15 scalpel blade a small linear longitudinal incision was made overlying the lateral malleolus fracture site. Dissection was completed down through the subcutaneous tissue layer to the lateral malleolus fracture site. Under the guidance of intra-operative fluoroscopy, and using the Isai bone biopsy tray, a cylindrical piece of bone was obtained from the lateral malleolus fracture site.The bone from the sites was noted to be yellow and softer than normal. These were sent to pathology and microbiology separately for further evaluation. There was no noted purulence, no visible abscess, no cellulitis present. Fluoroscopic images were saved and placed in patient's chart.The site was flushed out with copious amounts of normal saline solution. The patient was give 2 grams of IV Ancef. The skin was reapproximated using 4-0 Monocryl. The pneumatic tourniquet was deflated and there was immediate return of warmth and perfusion to the foot and ankle, CFT < 2 seconds to all toes with normal temperature present. A dressing was applied which consisted of Betadine soaked Adaptic, 4x4 gauze, Kerlix and ata bandage. The patient tolerated the above procedure well and the anesthesia well with no complications. She was transported from the operating room to the recovery room with vital signs stable and in good condition. Post operative orders were placed, which included 3 views of the left foot and ankle, which were reviewed and noted to be stable. No acute changes. Post operative instructions were reviewed with patient and orders placed for usp. Keep left foot/ankle protected in CAM Walker. No weightbearing left foot/ankle. She is to follow up within 1 week or sooner if needed. Grafts/Implants Used: None - Complications None 08/28/181926 <Electronically signed by Jose Angel Luke DPM> Date Jose Angel Luke DPM CC: Jose Angel Luke DPM; Froilan Rosenthal MD Signed DISCHARGE INSTRUCTION Observed: 08/28/2018 Status: F Source: [place] 8:[address] [facility] REPOSITORY [facility] Medical Records Department [address] [place] [address] Instructions for Home/Discharge Instructions 08/28/18 0810 MR#: [id number] Acct: [id number] Name: MEREDITH ALBERTO Rep #: [id number] : 1960 58 From: Jose Angel Luke DPM PCP: Galo ROBERTS,Froilan Andre Status: REG SDC Discharge Diet: Light diet - advance as tolerated Discharge Activity: May Not Drive Weight Bearing Status: No weight bearing - Strict nonweightbearing left foot/ankle at all times Keep extremity elevated above heart level: Left Leg - Keep left foot/ankle elevated using pillows, with lateral ankle floating/offloaded, for at least 50 minutes of every hour Call your doctor if your incision/area has: Continuous Slow Oozing, Sudden Increased Bleeding, Foul Smelling Discharge Call your doctor if you observe: Fever of 101 or Higher, Coldness, Increased Pain, Shortness of breath, Chest pain, Increased palpitations (irregular heartbeat), Calf discomfort, Uncontrolled pain Cleanse incision/area with: Keep Dressing Clean AND Dry - Keep dressing clean, dry and intact for first 72 hours, then remove dressing and cleanse with soap and normal saline solution - paint incision sites with betadine solution and apply overlying gauze/ata dressing. Additional Instructions: Keep foot protected in CAM Walker boot, I do not think her custom [place] Walker boot will fit properly at this time fit due to dressing. No physical therapy for 08/28/18 Allergies/Adverse Reactions: Allergies clindamycin [From Cleocin] Allergy (Verified 08/24/18 15:07) Itching Sulfa (Sulfonamide Antibiotics) Allergy (Verified 08/27/18 16:55) Itching ondansetron [From Zofran (as hydrochloride)] Adverse Reaction (Verified 08/27/18 16:55) Nausea Medications to take at Discharge Omeprazole 20 mg PO DAILY 12/16/16 Docusate Sodium [Colace] 100 mg PO DAILY PRN PRN 07/23/17 atorvastatin 40 mg tablet 40 mg PO QHS 06/04/18 lisinopril 20 mg tablet 20 mg PO DAILY 06/04/18 multivitamin-ferrous fumarate-folic acid 18 mg-400 mcg tablet 1 tab PO DAILY 06/04/18 Bupropion HCl [Bupropion HCl Sr] 150 mg PO BID 06/11/18 Chlorthalidone 25 mg PO DAILY 06/11/18 proMETHazine tablet [Phenergan tablet] 25 mg PO Q6H PRN PRN 06/11/18 Acetaminophen [Tylenol] 1,000 mg PO TID tablet 06/20/18 Ergocalciferol [Vitamin D] 50,000 unit PO Q7D #7 capsule 06/20/18 Gabapentin [Neurontin] 300 mg PO TID 08/24/18 Insulin Glargine [Lantus SoloStar Pen] 17 units SC QHS 08/24/18 Insulin Lispro [Humalog KwikPen] 8 unit SC TIDCM 08/24/18 Lorazepam [Ativan] 0.5 mg PO BID 08/24/18 Melatonin [Melatin] 3 mg PO QHS 08/24/18 Oxycodone HCl [Oxycontin] 10 mg PO BID 08/24/18 Oxycodone [Oxyir] 5 mg PO BID 08/24/18 Primary Care Physician: Froilan Rosenthal Chi, MD [Primary Care Provider] - Test Results: Test results from this visit will be discussed in further detail at your follow-up appointment, if applicable. Please Follow Up With: Jose Angel Luke DPM When: within 1 week, sooner if needed 08/28/18813 <Electronically signed by Jose Angel Luke DPM> Date Jose Angel Luke DPM CC: Froilan Rosenthal MD ANKLE MIN 3 VIEWS Observed: 08/28/2018 Status: F Source: [place] 8:[address] [facility] REPOSITORY [facility] Imaging Services [address] [place] [address] Ankle min 3 Views MR#: [id number] Acct: [id number] Name: MEREDITH ALBERTO Rep #: [id number] : 1960 F 58 From: Aneesh Mcnamara MD PCP: Froilan Rosenthal MD, Chi Status: [facility] Study: Ankle min 3 Views Date of Exam: 08/28/18 Exam# [id number] Ordering Dr: Jose Angel Luke DPM STUDY: X-RAY - LEFT ANKLE REASON FOR EXAM: Postop bone biopsy. TECHNIQUE: 3 view(s) of the ankle. COMPARISON: Radiographs 06/15/2018. FINDINGS: There is a healing nondisplaced fracture of the distal fibular diaphysis. There is widening of the lateral ankle mortise. There is fragmentation at the talonavicular and calcaneocuboid articulations consistent with neuropathic osteoarthropathy. There is soft tissue swelling and heterotopic ossification. RAD/Ankle min 3 Views IMPRESSION: Healing nondisplaced fracture of the distal fibular diaphysis. Neuropathic osteoarthropathy. Soft tissue swelling and heterotopic ossification. Electronically Signed: Aneesh Mcnamara MD at 10:55 EDT Tel , Service support , CC: Jose Angel Luke DPM; Froilan Rosenthal MD Data Security Coordinator: Signed FOOT MIN 3 VIEWS Observed: 08/28/2018 Status: F Source: [place] 8:[address] [facility] REPOSITORY [facility] Imaging Services [address] [place] [address] Foot min 3 Views MR#: [id number] Acct: [id number] Name: MEREDITH ALBERTO Rep #: [id number] : 1960 F 58 From: Aneesh Mcnamara MD PCP: Froilan Rosenthal MD, Chi Status: [facility] Study: Foot min 3 Views Date of Exam: 08/28/18 Exam# [id number] Ordering Dr: Jose Angel Luke DPM STUDY: X-RAY - LEFT FOOT CLINICAL: Postop bone biopsy. TECHNIQUE: 3 view(s) of the foot. COMPARISON: Radiographs 06/15/2018. FINDINGS: There is fragmentation of the head of the talus at the talonavicular articulation and calcaneus at the posterior subtalar and calcaneocuboid articulations consistent with neuropathic osteoarthropathy. There is amputation of the proximal fourth and fifth metatarsals as on the prior study. Normal metatarsophalangeal joint of the great toe. Normal tibial and fibular sesamoid bones. Normal interphalangeal joint of the great toe. Normal phalanges of the great toe. Normal second and third metatarsophalangeal joints. Normal interphalangeal joints and phalanges of the second and third toes. There is heterotopic ossification adjacent to the distal tibia and fibula. There is soft tissue swelling and a small pocket soft tissue gas at the medial aspect of the hindfoot from recent biopsy. RAD/Foot min 3 Views IMPRESSION: Neuropathic osteoarthropathy and heterotopic ossification without significant change. Electronically Signed: Aneesh Mcnamara MD at 10:56 EDT Tel , Service support , CC: Jose Angel Luke DPM; Froilan Rosenthal MD Data Security Coordinator: Signed Observed: 08/28/2018 Status: F Source: [place] CULTURE, DEEP WOUND 7:[address] [facility] REPOSITORY Order Date: 05/31/17 Has pt arrived? Y Comments: LEFT FOOT/ANKLE- TALUS BONE Gram Stain Gram Stain No organisms seen Wound Culture No growth aerobically. Cult, Anaerobic No growth in 5 days. Performed By: #### M100.1500 #### [facility] [address] [place], [id number] Observed: 08/28/2018 Status: F Source: [place] CULTURE, DEEP WOUND 7:[address] [facility] REPOSITORY Order Date: 05/31/17 Has pt arrived? Y Comments: LEFT FOOT/ANKLE- CALCANEUS BONE Gram Stain Gram Stain No organisms seen Wound Culture No growth aerobically. Cult, Anaerobic No growth in 5 days. Performed By: #### M100.1500 #### [facility] [place], [place], [address] Observed: 08/28/2018 Status: F Source: [place] CULTURE, DEEP WOUND 7:[address] [facility] REPOSITORY Order Date: 05/31/17 Has pt arrived? Y Comments: LEFT FOOT/ANKLE-TIBIA BONE Gram Stain Gram Stain No organisms seen Wound Culture No growth aerobically. Cult, Anaerobic No growth in 5 days. Performed By: #### M100.1500 #### [facility] [place], [place], [address] Observed: 08/28/2018 Status: F Source: [place] CULTURE, DEEP WOUND 7:[address] [facility] REPOSITORY Order Date: 05/31/17 Has pt arrived? Y Comments: LEFT FOOT/ANKLE- FIBULA BONE Gram Stain Gram Stain No organisms seen Wound Culture No growth aerobically. Cult, Anaerobic No growth in 5 days. Performed By: #### M100.1500 #### [facility] [address] [place], [place], [address] [employer] Observed: 08/28/2018 Status: F Source: [place] CULT/SMEAR [id number] 7:[address] [facility] REPOSITORY Comments: LEFT FOOT/ANKLE- TALUS BONE Has pt arrived? Y AFB Smear/Fluor TESTING PERFORMED AT [facility]. ORIGINAL REPORT ON FILE IN LAB CONTAINS ADDITIONAL TEST SITE INFORMATION. Smear, Acid Fast Tissue Grinding Smear: Negative AF[employer] Cult TESTING PERFORMED AT [facility]. ORIGINAL REPORT ON FILE IN LAB CONTAINS ADDITIONAL TEST SITE INFORMATION. Culture, Acid Fast NO ACID-FAST BACILLI ISOLATED AFTER 6 WEEKS. Performed By: #### M100.3880 #### [place] [facility] [address] [place], [address] Observed: 08/28/2018 Status: F Source: [place] W/ 7:30 [facility] [id number] REPOSITORY Comments: LEFT FOOT/ANKLE- TALUS BONE Has pt arrived? Y Is this test to exclude patient from TB Isolation? Stephanie Pena,[id number] TESTING PERFORMED AT [facility]. ORIGINAL REPORT ON FILE IN LAB CONTAINS ADDITIONAL TEST SITE INFORMATION. CUF No yeast or mold isolated after [address] TESTING PERFORMED AT [facility]. ORIGINAL REPORT ON FILE IN LAB CONTAINS ADDITIONAL TEST SITE INFORMATION. Fungus Stain No yeast or mold observed. Performed By: #### M600.1900 #### [place] [facility] [address], [id number] [employer] Observed: 08/28/2018 Status: F Source: [place] CULT/SMEAR [id number] 7:[address] [facility] REPOSITORY Comments: LEFT FOOT/ANKLE- CALCANEUS BONE Has pt arrived? Y AFB Smear/Fluor TESTING PERFORMED AT [facility]. ORIGINAL REPORT ON FILE IN LAB CONTAINS ADDITIONAL TEST SITE INFORMATION. Smear, Acid Fast Tissue Grinding Smear: Negative AF[employer] Cult TESTING PERFORMED AT [facility]. ORIGINAL REPORT ON FILE IN LAB CONTAINS ADDITIONAL TEST SITE INFORMATION. Culture, Acid Fast NO ACID-FAST BACILLI ISOLATED AFTER 6 WEEKS. Performed By: #### M100.3880 #### [place] [facility] [address], [address] Observed: 08/28/2018 Status: F Source: [place] CULTURE, FUNGUS W/ 7:[address] [facility] [id number] REPOSITORY Comments: LEFT FOOT/ANKLE- CALCANEUS BONE Has pt arrived? Y Is this test to exclude patient from TB Isolation? N [id number] TESTING PERFORMED AT [facility]. ORIGINAL REPORT ON FILE IN LAB CONTAINS ADDITIONAL TEST SITE INFORMATION. CUF No yeast or mold isolated after [address] TESTING PERFORMED AT [facility]. ORIGINAL REPORT ON FILE IN LAB CONTAINS ADDITIONAL TEST SITE INFORMATION. Fungus Stain No yeast or mold observed. Performed By: #### M600.1900 #### [facility] [address] [place], [address] [employer] Observed: 08/28/2018 Status: F Source: [place] CULT/SMEAR [id number] 7:[address] [facility] REPOSITORY Comments: LEFT FOOT/ANKLE- TIBIA BONE Has pt arrived? Y Is this test to exclude patient from TB Isolation? N AF[employer] Smear/Fluor TESTING PERFORMED AT [facility]. ORIGINAL REPORT ON FILE IN LAB CONTAINS ADDITIONAL TEST SITE INFORMATION. Smear, Acid Fast Tissue Grinding Smear: Negative AF[employer] Cult TESTING PERFORMED AT [facility]. ORIGINAL REPORT ON FILE IN LAB CONTAINS ADDITIONAL TEST SITE INFORMATION. Culture, Acid Fast NO ACID-FAST BACILLI ISOLATED AFTER 6 WEEKS. Performed By: #### M100.3880, M600.1900 #### [facility] [address] [place], [address] Observed: 08/28/2018 Status: F Source: [place] W/ 7:30 [facility] [id number] REPOSITORY Comments: LEFT FOOT/ANKLE- TIBIA BONE Has pt arrived? Y Is this test to exclude patient from TB Isolation? N Jean,[id number] TESTING PERFORMED AT [facility]. ORIGINAL REPORT ON FILE IN LAB CONTAINS ADDITIONAL TEST SITE INFORMATION. CUF No yeast or mold isolated after [address] TESTING PERFORMED AT [facility]. ORIGINAL REPORT ON FILE IN LAB CONTAINS ADDITIONAL TEST SITE INFORMATION. Fungus Stain No yeast or mold observed. Performed By: #### M100.3880, M600.1900 #### [facility] [address] [place], [address] [employer] Observed: 08/28/2018 Status: F Source: [place] CULT/SMEAR [id number] 7:[address] [facility] REPOSITORY Comments: LEFT FOOT/ANKLE-FIBULA BONE Has pt arrived? Y Comments: LEFT FOOT/ANKLE- FIBULA BONE Is this test to exclude patient from TB Isolation? N AF[employer] Smear[facility]Fluor [facility] ORIGINAL REPORT ON FILE IN LAB CONTAINS ADDITIONAL TEST SITE INFORMATION. Smear, Acid Fast Tissue Grinding Smear: Negative AFB Cult TESTING PERFORMED AT [facility]. ORIGINAL REPORT ON FILE IN LAB CONTAINS ADDITIONAL TEST SITE INFORMATION. Culture, Acid Fast NO ACID-FAST BACILLI ISOLATED AFTER 6 WEEKS. Performed By: #### M100.3880, M600.1899 #### [place] [facility] [address] [place], [address] Observed: 08/28/2018 Status: F Source: [place] MONTES DE OCA, FUNGUS W/ 7:30 [facility] [id number] REPOSITORY Comments: LEFT FOOT/ANKLE-FIBULA BONE Has pt arrived? Y Comments: LEFT FOOT/ANKLE- FIBULA BONE Is this test to exclude patient from TB Isolation? N Cu,[id number] TESTING PERFORMED AT [facility]. ORIGINAL REPORT ON FILE IN LAB CONTAINS ADDITIONAL TEST SITE INFORMATION. CUF No yeast or mold isolated after [address] TESTING PERFORMED AT [facility]. ORIGINAL REPORT ON FILE IN LAB CONTAINS ADDITIONAL TEST SITE INFORMATION. Fungus Stain No yeast or mold observed. Performed By: #### M100.3880, .[id number] #### [facility] [address] [place], [address] BEDSIDE GLUCOSE Collected: 08/28/2018 Status: F Source: [place] 6:[address] [facility] REPOSITORY TYPE CODE TESTS RESULT OUT OF REFERENCE UNITS RANGE LAB L501.080 70-110 mg/dL High BEDSIDE GLU 129 Result Comment: MANAGEMENT OF PATIENT CARE PER NURSING PROTOCOL Performed By: #### L501.080 #### [facility] Point of Care [address] [place] [address] FOOT MIN 3 VIEWS Observed: 08/28/2018 Status: F Source: [place] 12:[address] [facility] REPOSITORY [facility] Imaging Services [address] [place] [address] Foot min 3 Views MR#: [id number] Acct: [id number] Name: MEREDITH ALBERTO Rep #: [id number] : 1960 F 58 From: Aneesh Mcnamara MD PCP: Froilan Rosenthal MD, Chi Status: [facility] Study: Foot min 3 Views Date of Exam: 08/28/18 Exam# [id number] Ordering Dr: Jose Angel Luke DPM STUDY: X-RAY - LEFT FOOT CLINICAL: Left foot and ankle biopsy. TECHNIQUE: 7 fluoroscopic views of the foot. COMPARISON: None. 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 24 seconds of fluoroscopy time was used. Electronically Signed: Aneesh Mcnamara MD at 10:51 EDT Tel , Service support , RAD/Foot min 3 Views CC: Jose Angel Luke DPM; Froilan Rosenthal MD Data Security Coordinator: Signed BONE (FX/NONFRACTURE) Observed: 08/28/2018 Status: F Source: [place] 12:[address] [facility] REPOSITORY Patient: MEREDITH ALBERTO : 1960 (58/F) Acct Num: [id number] Phys: Jose Angel Luke DPM Unit Num: [id number] Loc: [facility] Specimen: [id number] Received: 08/28/18 - 1105 Spec Type: Bone TISSUES 1 TISSUES: A. Bone of foot, NOS B. Bone of foot, NOS C. Tibia, NOS D. Bone of foot, NOS GROSS DESCRIPTION A - Received in fixative is one container labeled with the patient's name and designated left foot/ankle talus bone. The specimen consists of two pieces of bone measuring in aggregate 1 x 0.5 x 0.3 cm. The entire specimen is submitted in one cassette after decalcification. B - Received in fixative is one container labeled with the patient's name and designated left foot/ankle calcaneus bone. The specimen consists of a core biopsy of porter bone measuring 1 cm in length and 0.3 cm in diameter. The entire specimen is submitted in one cassette after decalcification. C - Received in fixative is one container labeled with the patient's name and designated left foot/ankle tibia bone. The specimen consists of a core biopsy of bone measuring 0.5 cm in length and 0.3 cm in diameter. The entire specimen is submitted in one cassette after decalcification. D - Received in fixative is one container labeled with the patient's name and designated left foot/ankle fibula bone. The specimen consists of a piece of porter bone measuring 0.4 x 0.3 x 0.3 cm. The entire specimen is submitted in one cassette after decalcification. / SJ:rg 08/28/18 TC:5 CPT: 04679 x4, 18405 x4 HEADER OPERATION: Bone biopsy foot PRE-OP DIAGNOSIS: Charcot neuropathy - left foot/ankle TISSUE SUBMITTED: A - Left foot/ankle - talus bone, B - Left foot/ankle - calcaneus bone, C - Left foot/ankle - tibia bone, D - Left foot/ankle - fibula bone MICROSCOPIC DESCRIPTION Slides are reviewed. MICROSCOPIC DIAGNOSIS A. Left foot/ankle, talus bone, biopsy: Pieces of bone with reactive changes. B. Left foot/ankle, calcaneus bone, biopsy: A piece of bone with reactive changes. C. Left foot/ankle, tibia bone, biopsy: A piece of bone with reactive changes. D. Left foot/ankle, fibula bone, biopsy: A piece of bone with adherent piece of soft tissue with reactive changes. SJ:margarita 09/03/18 Signed Arturo Lua 09/03/18 <signature on file> Performed By: #### PBON #### [facility] [address] [place], [address] EXTREMITY LOWER Observed: 08/06/2018 Status: F Source: [place] WITHOUT CONTRA 9:[address] [facility] REPOSITORY [facility] Imaging Services [address] [place] [address] Extremity Lower without Contra MR#: [id number] Acct: [id number] Name: MEREDITH ALBERTO Rep #: [id number] : 1960 F 58 From: Fazal Patel MD PCP: Froilan Rosenthal MD, Chi Status: REG CLI Study: Extremity Lower without Contra Date of Exam: 08/06/18 Exam# [id number] Ordering Dr: Jose Angel Luke DPShelley STUDY: CT LOWER EXTREMITY WITHOUT CONTRAST, LEFT. REASON FOR EXAM: Female, 58 years old. Charcot neuropathy, M.D. dilatation of the 4th and 5th toes of the left foot. Question of fracture. RADIATION DOSAGE (If Supplied By Facility): CTDIvol = ( 6.15 ) mGy, DLP = ( 164.96 ) mGycm. Individualized dose optimization techniques were used for this CT.? TECHNIQUE: Thin slice helical CT acquisition of the ankle and foot without IV contrast. Coronal and sagittal 2-D MPR. COMPARISON: X-ray foot 06/15/2018, 06/11/2018. FINDINGS: There is prominent soft tissue swelling surrounding the ankle joint with evidence of a complex echogenic effusion which may reflect synovitis. There is moderate edema of the dorsum of the foot. There is no deep soft tissue gas. There is no evidence of abscess. There is a nonunion fracture of the distal fibular diaphysis. The distal tibia is acutely intact. There is medial subluxation of the tibia relative to the talus. There is subluxation and erosion of the tibiotalar articulation. There is fragmentation of the distal 3rd of the calcaneus, with fracture planes traverse into the subtalar joints. Also extending into the calcaneocuboid articulation. Cuboid and cuneiform bones and navicular bone intact. The remaining metatarsals are intact. The remaining phalanges are intact. CT/Extremity Lower without Contra IMPRESSION: Destruction of the subtalar articulation, with fragmented fractures of the calcaneus, fractures with both acute and chronic features. Nonunion fracture of the distal fibula. Medial subluxation of the tibiotalar articulation. Prominent complex soft tissue swelling and edema and effusion of the ankle joint and subtalar joint. This may represent a diffuse synovitis. Infectious process cannot be entirely excluded. Electronically Signed: Fazal Amanda, at 13:00 EDT Tel , Service support , CC: Jose Angel Luke DPM; Froilan Rosenthal MD Data Security Coordinator: Signed DISCHARGE SUMMARY Observed: 06/21/2018 Status: F Source: [place] 5:[address] [facility] REPOSITORY [facility] Medical Records Department [address] [place] [address] Discharge Summary 06/20/18 1419 MR#: [id number] Acct: [id number] Name: MEREDITH ALBERTO Rep #: [id number] : 1960 58 From: Hien Jacobs MD PCP: Froilan Rosenthal MD, Chi Status: DIS IN Y Location: MS3 [id number] Discharge Date and Diagnosis Date of Admission: 06/15/18 Date of Discharge: 06/20/18 - Primary Discharge Diagnosis Active and Suspected Problems (Last Reviewed 06/05/18 @ 08:58 by Marta Santos) Complicated fracture of left calcaneum (Acute) Complicated fracture of left talus (Acute) Charcot's joint, left ankle and foot (Acute) - Secondary Discharge Diagnosis Chronic Problems (Last Reviewed 06/05/18 @ 08:58 by Marta Santos) Chronic pain (Chronic) Phantom pain (Chronic) Anxiety (Chronic) Depression (Chronic) 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 Luke. Abnormal EKG (Chronic) ekg's indicating possible previous inferior infarct HTN (hypertension) (Chronic) Debility (Chronic) MRSA (methicillin resistant Staphylococcus aureus) infection (Chronic) Type II diabetes mellitus (Chronic) Peripheral neuropathy (Chronic) Tobacco use disorder (Chronic) Hospital Course and Treatment Imaging Results: Clinical Impression(s) from Imaging Studies Foot X-Ray 06/15/18 19:14 IMPRESSION: As above Electronically Signed: Clyde Jones DO at 19:46 EDT Tel , Service support , Ankle X-Ray 06/15/18 19:30 IMPRESSION: Findings as above suggestive of Charcot joint Electronically Signed: Clyde Jones DO at 19:45 EDT Tel , Service support , Podiatry Operations: None, - - debridement left foot Procedures: None Summary of Care Provided: 58-year-old female past medical history of type II DM, complicated by diabetic neuropathy, Charcot joint, status post left fourth and fifth ray amputation, recent history of cellulitis of the left foot, comes in with complaints of left foot pain. 1. Left Charcot foot, nonweightbearing on the left lower extremity, podiatry follow-up in the outpatient is planned, pain controlled on oxycodone, gabapentin added 2. Recent left leg cellulitis, completed treatment with Keflex, ID consulted, no more on antibiotics indicated. 3. Type 2 DM, blood sugars are fairly uncontrolled, changes made to her Lantus and Humalog with better control 4. Debility, related to current left Charcot foot, discharged to [facility]. Discharge Diet: Low fat/ Low Cholesterol, 2000 mg Sodium Diet, Carb Control Diet Home Medications: Medications to take at Discharge Omeprazole 20 mg PO DAILY 12/16/16 Docusate Sodium [Colace] 100 mg PO DAILY PRN PRN 07/23/17 atorvastatin 40 mg tablet 40 mg PO QHS 06/04/18 lisinopril 20 mg tablet 20 mg PO DAILY 06/04/18 multivitamin-ferrous fumarate-folic acid 18 mg-400 mcg tablet 1 tab PO DAILY 06/04/18 Bupropion HCl [Bupropion HCl Sr] 150 mg PO BID 06/11/18 Chlorthalidone 25 mg PO DAILY 06/11/18 proMETHazine tablet [Phenergan tablet] 25 mg PO Q6H PRN PRN 06/11/18 Acetaminophen [Tylenol] 1,000 mg PO TID tablet 06/20/18 Ergocalciferol [Vitamin D] 50,000 unit PO Q7D #7 capsule 06/20/18 Gabapentin [Neurontin] 100 mg PO QHS capsule 06/20/18 Glucerna Shake 120 ml PO 4X/DAY liquid 06/20/18 Insulin Glargine [Lantus SoloStar Pen] 17 units SC QHS pen 06/20/18 Insulin Lispro [Humalog KwikPen] 8 unit SC TIDCM insuln.pen 06/20/18 Lorazepam [Ativan] 0.5 mg PO BID PRN #10 tab 06/20/18 Oxycodone [Oxyir] 5 mg PO TID PRN PRN #20 tab 06/20/18 Following Prescrptions Were Given to Patient: Oxycodone [Oxyir] 5 mg PO TID PRN PRN #20 tab PRN Reason: Pain Lorazepam [Ativan] 0.5 mg PO BID PRN #10 tab PRN Reason: ANXIETY Primary Care Physician: Froilan Rosenthal Chi, MD [Primary Care Provider] - Please follow up with your Primary Care Physician in: within 2 weeks of discharge from [facility] Please Follow Up With: Jose Angel Luke DPM When: within 1 week Disposition: Senior Living facility Minutes spent on discharge:: 40 Patient Condition:: Stable Medical Necessity - Tobacco Use Smoking Status: Current every day smoker Tobacco Use: Cigarettes Meaningful Use Info Meaningful Use Diagnoses (Choose all that apply): None applicable Code Visit Inpatient E AND M: 02432 Disch Hosp 06/21/18 1757 <Electronically signed by Hien Jacobs MD> Date Hien Jacobs MD Cosigner Signature (if applicable): Date CC: Hien Jacobs MD; Froilan Rosenthal MD Signed TRANSFER TO EXTENDED Observed: 06/20/2018 Status: F Source: [facility] 2:[address] [facility] REPOSITORY [facility] Medical Records Department [address] [place] [address] Transfer to [facility] MR#: [id number] Acct: [id number] Name: MEREDITH ALBERTO Rep #: [id number] : 1960 58 From: Hien Jacobs MD PCP: Froilan Rosenthal MD, Chi Status: ADM IN MEREDITH ALBERTO (Patient) (Health Ins. Claim No.) (Day of Discharge to Facility) Certification of patient admission REQUIRED AT TIME OF ADMISSION. I CERTIFY THAT POST-HOSPITAL F SERVICES ARE REQUIRED TO BE GIVEN ON AN IN-PATIENT BASIS BECAUSE OF THE ABOVE NAMED PATIENT'S NEED FOR SENIOR CARE CARE ON A CONTINUING BASIS FOR THE CONDITION(S) FOR WHICH HE/SHE WAS RECEIVING IN-PATIENT HOSPITAL SERVICES PRIOR TO HIS/HER TRANSFER TO THE [facility]. 06/20/18 1413 <Electronically signed by Hien Jacobs MD> Date Hien Jacobs MD - Diet 06/15/18 17:41 Diet: Calorie controlled diet Food consistency:: Regular Liquid Consistency:: Regular/Thin Type of Dietary Supplement:: Martha ([place]) - Routine Orders/Code Status Routine Lab Work: CBC - within 3 days, BMP - within 3 days Code Status: Full Code - Wound(s) RIGHT KNEE Wound Type: Abrasion Lt foot Wound Type: amputation 4TH 5TH METATARSAL - Therapies Weight Bearing: Non weight bearing Physical Therapy: Eval and Treat Occupational Therapy: Eval and Treat - Allergies/Procedures Done in Hospital Allergies/Adverse Reactions: Allergies clindamycin [From Cleocin] Allergy (Verified 06/11/18 12:57) Itching ondansetron [From Zofran (as hydrochloride)] Allergy (Verified 06/11/18 12:57) Nausea Sulfa (Sulfonamide Antibiotics) Allergy (Verified 06/11/18 12:57) Itching - Type of Care/Length of Stay Estimated LOS: Convalescent Care Less Than 30 days Type of Care Needed: Skilled Rehab Potential: Fair Prognosis: Fair - Additional Orders/Day of Discharge Day of Discharge: 06/20/18 - Dietary and Speech Recommendations Dietitian Recommendations/Changes: Suggest diet change to 1800 calorie, carbohydrate-controlled, cardiac. Obtain martha as needed--order from pharmacy not from dietary. Continue glucerna shake on medpass as tolerated until PO consistently improves. - Follow Up Care Primary Care Physician: Froilan Rosenthal Chi, MD [Primary Care Provider] - Please follow up with your Primary Care Physician in: within 2 weeks of discharge from [facility] Please Follow Up With: Jose Angel Luke DPM When: within 1 week 06/20/18 1413 <Electronically signed by Hien Jacobs MD> Date Hien Jacobs MD CC: Jose Angel Luke DPM; Joey Pagan MD; Froilan Rosenthal MD Signed BEDSIDE GLUCOSE Collected: 06/20/2018 Status: F Source: [place] 12:[address] [facility] REPOSITORY TYPE CODE TESTS RESULT OUT OF REFERENCE UNITS RANGE LAB L501.080 70-110 mg/dL High BEDSIDE GLU 233 Result Comment: MANAGEMENT OF PATIENT CARE PER NURSING PROTOCOL Performed By: #### L501.080 #### [facility] Point [place] [address] BEDSIDE GLUCOSE Collected: 06/20/2018 Status: F Source: [place] 7:[address] [facility] REPOSITORY TYPE CODE TESTS RESULT OUT OF REFERENCE UNITS RANGE LAB L501.080 70-110 mg/dL High BEDSIDE GLU 176 Result Comment: MANAGEMENT OF PATIENT CARE PER NURSING PROTOCOL Performed By: #### L501.080 #### [facility] Point of Care [address] [place] [address] BEDSIDE GLUCOSE Collected: 06/19/2018 Status: F Source: [place] 9:[address] [facility] REPOSITORY TYPE CODE TESTS RESULT OUT OF REFERENCE UNITS RANGE LAB L501.080 70-110 mg/dL High BEDSIDE GLU 278 Result Comment: MANAGEMENT OF PATIENT CARE PER NURSING PROTOCOL Performed By: #### L501.080 #### [facility] Point of Care [address] [place] [address] BEDSIDE GLUCOSE Collected: 06/19/2018 Status: F Source: [place] 5:[address] [facility] REPOSITORY TYPE CODE TESTS RESULT OUT OF REFERENCE UNITS RANGE LAB L501.080 70-110 mg/dL High BEDSIDE GLU 213 Result Comment: MANAGEMENT OF PATIENT CARE PER NURSING PROTOCOL Performed By: #### L501.080 #### [facility] Point of Care [address] [place] [address] BEDSIDE GLUCOSE Collected: 06/19/2018 Status: F Source: [place] 12:[address] [facility] REPOSITORY TYPE CODE TESTS RESULT OUT OF REFERENCE UNITS RANGE LAB L501.080 70-110 mg/dL High BEDSIDE GLU 203 Result Comment: MANAGEMENT OF PATIENT CARE PER NURSING PROTOCOL Performed By: #### L501.080 #### [facility] Point of Care [address] [place] [address] BEDSIDE GLUCOSE Collected: 06/19/2018 Status: F Source: [place] 6:[address] [facility] REPOSITORY TYPE CODE TESTS RESULT OUT OF REFERENCE UNITS RANGE LAB L501.080 70-110 mg/dL High BEDSIDE GLU 219 Result Comment: MANAGEMENT OF PATIENT CARE PER NURSING PROTOCOL Performed By: #### L501.080 #### [facility] Point of Care [address] [place] [address] BEDSIDE GLUCOSE Collected: 06/18/2018 Status: F Source: [place] 9:[address] [facility] REPOSITORY TYPE CODE TESTS RESULT OUT OF REFERENCE UNITS RANGE LAB L501.080 70-110 mg/dL High BEDSIDE GLU 227 Result Comment: MANAGEMENT OF PATIENT CARE PER NURSING PROTOCOL Performed By: #### L501.080 #### [facility] Point of Care [address] [place] [address] BEDSIDE GLUCOSE Collected: 06/18/2018 Status: F Source: [place] 4:[address] [facility] REPOSITORY TYPE CODE TESTS RESULT OUT OF REFERENCE UNITS RANGE LAB L501.080 70-110 mg/dL High BEDSIDE GLU 228 Result Comment: MANAGEMENT OF PATIENT CARE PER NURSING PROTOCOL Performed By: #### L501.080 #### [facility] Point of Care [address] [place] [address] BEDSIDE GLUCOSE Collected: 06/18/2018 Status: F Source: [place] 11:[address] [facility] REPOSITORY TYPE CODE TESTS RESULT OUT OF REFERENCE UNITS RANGE LAB L501.080 70-110 mg/dL High BEDSIDE GLU 157 Result Comment: MANAGEMENT OF PATIENT CARE PER NURSING PROTOCOL Performed By: #### L501.080 #### [facility] Point of Care [address] [place] [address] CONSULTATION Observed: 06/18/2018 Status: F Source: [place] 11:[address] [facility] REPOSITORY [facility] Medical Records Department [address] [place] [address] Consultation 06/18/18 1128 MR#: [id number] Acct: [id number] Name: MEREDITH ALBERTO Rep #: [id number] : 1960 58 From: Joey Pagan MD PCP: Galo ROBERTS,Froilan Chi Status: ADM IN Y Location: MS3 [id number] Problem List (1) Charcot's joint, left ankle and foot Status: Acute Reason for Consult: charcot foot Consulted by: Dr. Covington History of Present Illness: The patient is a 58 year old F with Charcot foot who presented with L foot fracture after slipping around end of March. Over past 2 weeks, had increased pain/redness/swelling. Went to ED 8/13, started on keflex, now redness resolved. No open lesions, no drainage. No fever or chills. Follows with Dr. Luke. Full ROS performed and neg except as noted above. 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 Luke. Abnormal EKG (Chronic) ekg's indicating possible previous inferior infarct HTN (hypertension) (Chronic) Debility (Chronic) MRSA (methicillin resistant Staphylococcus aureus) infection (Chronic) Type II diabetes mellitus (Chronic) Peripheral neuropathy (Chronic) Tobacco use disorder (Chronic) Allergies/Adverse Reactions: Allergies clindamycin [From Cleocin] Allergy (Verified 06/11/18 12:57) Itching ondansetron [From Zofran (as hydrochloride)] Allergy (Verified 06/11/18 12:57) Nausea Sulfa (Sulfonamide Antibiotics) Allergy (Verified 06/11/18 12:57) Itching Home Medications: Ambulatory Orders Medication Instructions Recorded - Social History SMOKING STATUS:: Current every day smoker Vital Signs Temp Pulse Resp BP Pulse Ox 97.8 F 85 18 148/92 H 98 06/18/18 10:50 06/18/18 10:50 06/18/18 10:50 06/18/18 10:50 06/18/18 10:50 Oxygen Delivery Method Room Air Weight: 79.9 kg Body Mass Index (BMI) 29.2 Laboratory Tests Past 24 Hrs Sodium 141 Potassium 3.7 Chloride 106 Carbon Dioxide 28.0 - Other Studies Radiology: [] reviewed Other Studies: [] Route of nutrition/ use of supplements: [] Nutritional Intake: [] IV Site: [] Kan Catheter: [] - Physical Exam General: Alert, Oriented x3, Cooperative, No apparent distress HEENT: Atraumatic, PERRLA, EOMI Neck: Supple, No Nodes Lungs: Clear to auscultation, Normal air movement Cardiovascular: Regular rate, Regular Rhythm, No murmurs Abdomen: Soft, Non Tender, Non-Distended Extremities: Edema - mild BLE Skin: No rashes IV Site: Peripheral, without redness Musculoskeletal: - - L foot wrapped Neurological: Cranial nerves II-XII grossly intact - Assessment/Plan Antibiotics: [] Assessment/Plan: [] Active and Suspected Problems (Last Reviewed 06/05/18 @ 08:58 by Marta Santos) Complicated fracture of left calcaneum (Acute) Complicated fracture of left talus (Acute) Charcot's joint, left ankle and foot (Acute) No sign of current infection, completed course of keflex for L foot cellulitis. Podiatry following. Will follow, thank you, d/w Dr. Covington. 06/18/18 1132 <Electronically signed by Joey Pagan MD> Date Joey Pagan MD Cosigner Signature (if applicable): Date CC: Jose Angel Luke DPM; Ferdinand Liu MD; Joey Pagan MD; Froilan Rosenthal MD Signed BEDSIDE GLUCOSE Collected: 06/18/2018 Status: F Source: [place] 8:[address] [facility] REPOSITORY TYPE CODE TESTS RESULT OUT OF RANGE REFERENCE UNITS LAB L501.080 70-110 mg/dL Normal BEDSIDE GLU 76 Result Comment: MANAGEMENT OF PATIENT CARE PER NURSING PROTOCOL Performed By: #### L501.080 #### [facility] Point of Care [facility] [place] [address] BASIC METABOLIC Collected: 06/18/2018 Status: F Source: [place] PROFILE (BMP) 5:[address] [facility] REPOSITORY TYPE CODE TESTS RESULT OUT OF RANGE REFERENCE UNITS LAB L501.0100 74-106 mg/dL Low GLU 70 Result Comment: Please note revised GLUCOSE reference range effective 2017. LAB L501.1000 7-18 mg/dL Normal BUN 12 LAB L501.1100 0.55-1.02 mg/dL Normal CREAT,SERUM 0.80 Result Comment: The validity of the calculated GFR AND GFRAA in patients over 70 years has not been determined. Clinical correlation is essential. LAB L501.1110 >60 mL/min Normal EST GFR 78 Result Comment: Non- GFR Calc LAB L501.1115 >60 mL/min Normal EST GFR - AA 94 Result Comment: GFR Calc LAB L501.1255 ml/min Normal Estimated CRCL 67.29 LAB L501.1300 10-20 RATIO Normal BUN/CRE 15.0 LAB L501.2200 8.5-10 mg/dL Low .1 CA 8.4 LAB L501.5300 136-14 mmol/L Normal 5 NA 141 LAB L501.5600 3.5-5. mmol/L Normal 1 K 3.7 LAB L501.5900 98-107 mmol/L Normal CL 106 LAB L501.6100 21.0-3 mmol/L Normal 2.0 CO2 28.0 LAB L501.6200 5-15 Normal GAP 7 Performed By: #### L500.2500 #### [facility] [address] [place], [address] BEDSIDE GLUCOSE Collected: 06/17/2018 Status: F Source: [place] 11:[address] [facility] REPOSITORY TYPE CODE TESTS RESULT OUT OF REFERENCE UNITS RANGE LAB L501.080 70-110 mg/dL High BEDSIDE GLU 185 Result Comment: MANAGEMENT OF PATIENT CARE PER NURSING PROTOCOL Performed By: #### L501.080 #### [facility] Point of Care [address] [place] [address] BEDSIDE GLUCOSE Collected: 06/17/2018 Status: F Source: [place] 9:[address] [facility] REPOSITORY TYPE CODE TESTS RESULT OUT OF REFERENCE UNITS RANGE LAB L501.080 70-110 mg/dL High BEDSIDE GLU 233 Result Comment: Insulin Given MANAGEMENT OF PATIENT CARE PER NURSING PROTOCOL Performed By: #### L501.080 #### [facility] Point of Care [address] [facility] [place] [address] BEDSIDE GLUCOSE Collected: 06/17/2018 Status: F Source: [place] 4:[address] [facility] REPOSITORY TYPE CODE TESTS RESULT OUT OF REFERENCE UNITS RANGE LAB L501.080 70-110 mg/dL High BEDSIDE GLU 151 Result Comment: MANAGEMENT OF PATIENT CARE PER NURSING PROTOCOL Performed By: #### L501.080 #### [facility] Point of Care [address] [place] [address] BEDSIDE GLUCOSE Collected: 06/17/2018 Status: F Source: [place] 12:[address] [facility] REPOSITORY TYPE CODE TESTS RESULT OUT OF REFERENCE UNITS RANGE LAB L501.080 70-110 mg/dL High BEDSIDE GLU 194 Result Comment: MANAGEMENT OF PATIENT CARE PER NURSING PROTOCOL Performed By: #### L501.080 #### [facility] Point of Care [address] [place] [address] BEDSIDE GLUCOSE Collected: 06/17/2018 Status: F Source: [place] 10:[address] [facility] REPOSITORY TYPE CODE TESTS RESULT OUT OF REFERENCE UNITS RANGE LAB L501.080 70-110 mg/dL High BEDSIDE GLU 194 Result Comment: MANAGEMENT OF PATIENT CARE PER NURSING PROTOCOL Performed By: #### L501.080 #### [facility] Point of Care [address] [place] [address] LIPID PROFILE Collected: 06/17/2018 Status: F Source: [place] 5:[address] [facility] REPOSITORY TYPE CODE TESTS RESULT OUT OF RANGE REFERENCE UNITS LAB L501.4900 200 mg/dL Normal CHOL 146 Result Comment: <200 mg/dL Desirable 200-240 mg/dL Borderline >240 mg/dL High Risk LAB L501.5000 mg/dL Normal TRIG 172 Result Comment: The drugs N-Acetylcysteine and Metamizole may falsely depress this assay. Serum Triglycerides Reference Interval Normal <150 mg/dL Borderline high 150 - 199 mg/dL High 200 - 499 mg/dL Very High > or = 500 mg/dL LAB L501.6400 mg/dL Low HDL 31 Result Comment: The drugs N-Acetylcysteine and Metamizole may falsely depress this assay. Reference Range HDL <40 mg/dL Low HDL Cholesterol HDL >or= 60 mg/dL High HDL Cholesterol LAB L501.6500 0-130 mg/dL Normal LDL 81 LAB L501.6600 5-40 mg/dL Normal VLDL 34 Performed By: #### L500.4100 #### [facility] [address] [place], [address] BEDSIDE GLUCOSE Collected: 06/16/2018 Status: F Source: [place] 9:[address] [facility] REPOSITORY TYPE CODE TESTS RESULT OUT OF REFERENCE UNITS RANGE LAB L501.080 70-110 mg/dL High BEDSIDE GLU 223 Result Comment: MANAGEMENT OF PATIENT CARE PER NURSING PROTOCOL Performed By: #### L501.080 #### [facility] Point of Care [address] [place] [address] BEDSIDE GLUCOSE Collected: 06/16/2018 Status: F Source: [place] 4:[address] [facility] REPOSITORY TYPE CODE TESTS RESULT OUT OF REFERENCE UNITS RANGE LAB L501.080 70-110 mg/dL High BEDSIDE GLU 130 Result Comment: MANAGEMENT OF PATIENT CARE PER NURSING PROTOCOL Performed By: #### L501.080 #### [facility] Point of Care [address] [place] [address] BEDSIDE GLUCOSE Collected: 06/16/2018 Status: F Source: [place] 11:[address] [facility] REPOSITORY TYPE CODE TESTS RESULT OUT OF REFERENCE UNITS RANGE LAB L501.080 70-110 mg/dL High BEDSIDE GLU 145 Result Comment: MANAGEMENT OF PATIENT CARE PER NURSING PROTOCOL Performed By: #### L501.080 #### [facility] Point of Care [address] [place] [address] BEDSIDE GLUCOSE Collected: 06/16/2018 Status: F Source: [place] 7:[address] [facility] REPOSITORY TYPE CODE TESTS RESULT OUT OF RANGE REFERENCE UNITS LAB L501.080 70-110 mg/dL Normal BEDSIDE GLU 95 Result Comment: MANAGEMENT OF PATIENT CARE PER NURSING PROTOCOL Performed By: #### L501.080 #### [facility] Point of Care [address] [place] [address] MAGNESIUM Collected: 06/16/2018 Status: F Source: [place] 6:[address] [facility] REPOSITORY TYPE CODE TESTS RESULT OUT OF RANGE REFERENCE UNITS LAB L501.5200 1.6-2.6 mg/dL Normal MG 1.6 Performed By: #### L501.5200, L501.5600 #### [facility] [address] [place], [address] POTASSIUM Collected: 06/16/2018 Status: F Source: [place] 6:[address] [facility] REPOSITORY TYPE CODE TESTS RESULT OUT OF RANGE REFERENCE UNITS LAB L501.5600 3.5-5.1 mmol/L Normal K 3.6 Performed By: #### L501.5200, L501.5600 #### [facility] [address] [place], [address] HEMOGLOBIN A1C Collected: 06/16/2018 Status: F Source: [place] 6:[address] [facility] REPOSITORY TYPE CODE TESTS RESULT OUT OF RANGE REFERENCE UNITS LAB L501.9985 4.2-6.3 % High HGB A1C 7.2 Performed By: #### L501.9985 #### [facility] [address] [place], [address] BEDSIDE GLUCOSE Collected: 06/15/2018 Status: F Source: [place] 9:[address] [facility] REPOSITORY TYPE CODE TESTS RESULT OUT OF REFERENCE UNITS RANGE LAB L501.080 70-110 mg/dL High BEDSIDE GLU 194 Result Comment: MANAGEMENT OF PATIENT CARE PER NURSING PROTOCOL Performed By: #### L501.080 #### [facility] Point of Care [address] [place] [address] HISTORY AND PHYSICAL Observed: 06/15/2018 Status: F Source: [place] EXAM 7:[address] [facility] REPOSITORY [facility] Medical Records Department [address] [address] History and Physical 06/15/18 1842 MR#: [id number] Acct: [id number] Name: MEREDITH ALBERTO Davi Rep #: [id number] : 1960 58 From: Ferdinand Liu MD PCP: Galo ROBERTS,Froilan Andre Status: ADM IN Y Location: MS3 [id number] Problem List (1) Complicated fracture of left calcaneum Status: Acute (2) Complicated fracture of left talus Status: Acute (3) Charcot's joint, left ankle and foot Status: Acute (4) Chronic pain Status: Chronic (5) Phantom pain Status: Chronic (6) Anxiety Status: Chronic (7) Depression Status: Chronic (8) Status post amputation of toe of left foot Status: Chronic Comment: X3 after chronic infection, osteomyelitis and necrotizing fasciitis, surgery per Dr. Luke. (9) Abnormal EKG Status: Chronic Comment: ekg's indicating possible previous inferior infarct (10) HTN (hypertension) Status: Chronic (11) Debility Status: Chronic (12) MRSA (methicillin resistant Staphylococcus aureus) infection Status: Chronic (13) Osteomyelitis of ankle or foot Status: Resolved (14) Diabetic foot infection Status: Resolved (15) Diabetic infected right heel ulcer Status: Resolved (16) Type II diabetes mellitus Status: Chronic Qualifiers: (17) Peripheral neuropathy Status: Chronic Qualifiers: Qualified Code(s): G63 - Polyneuropathy in diseases classified elsewhere (18) Tobacco use disorder Status: Chronic (19) Obesity Status: Inactive History of Present Illness Date of Admission: 06/15/18 Chief Complaint: Direct admit for left ankle fracture The patient is a 58 year old F with history of type 2 diabetes mellitus, complicated with diabetic neuropathy and Charcot joint is being admitted directly on the floor at the request of Dr. Luke. Patient has history of diabetic foot and has partial amputation of left fourth and fifth metatarsal with last admission in November 2016 of left fifth toe gangrene with cellulitis of left foot status post wound debridement with wound culture growing of group B streptococcus and MRSA. After that patient twisted her left ankle at the end of March/early April on walking and fracture of left talus. Patient had immobility boot was advised immobilization but she quit using goat as she had fall on the boot. Patient kept on falling because of weakness of left ankle and not fracture gotten worse as per Dr. Luke. She sustained fracture of calcaneus with old fracture of talus. She came to Monday for left leg cellulitis below knee level and excruciating pain. She was given antibiotic Keflex which she is taking. Left leg cellulitis, erythema is much better but she still has localized pain, 10/10 intensity. Patient also supposed to see ID for suspected cellulitis/deep tissue infection because of excruciating pain but could not see ID as an outpatient. Furthermore, the patient was directly admitted for further management Patient was having fever for 2-3 days prior to Monday but it has resolved after taking antibiotic and cellulitis is much improved. 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 Luke. Abnormal EKG (Chronic) ekg's indicating possible previous inferior infarct HTN (hypertension) (Chronic) Debility (Chronic) MRSA (methicillin resistant Staphylococcus aureus) infection (Chronic) Type II diabetes mellitus (Chronic) Peripheral neuropathy (Chronic) Tobacco use disorder (Chronic) Medical History: Medical History (Last Reviewed 06/05/18 @ 08:58 by Marta Santos) Chronic pain (Chronic) G89.29 Abnormal EKG (Chronic) R94.31 ekg's indicating possible previous inferior infarct HTN (hypertension) (Chronic) I10 Type II diabetes mellitus (Chronic) E11.9 Peripheral neuropathy (Chronic) G62.9 Tobacco use disorder (Chronic) F17.200 Allergies clindamycin [From Cleocin] Allergy (Verified 06/11/18 12:57) Itching ondansetron [From Zofran (as hydrochloride)] Allergy (Verified 06/11/18 12:57) Nausea Sulfa (Sulfonamide Antibiotics) Allergy (Verified 06/11/18 12:57) Itching Home Medications: Ambulatory Orders Medication Instructions Recorded Surgical History: Surgical History (Last Reviewed 06/05/18 @ 08:58 by Marta Santos) 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 Luke. Surgical History: cholecystectomy, - - Amputation of the left fourth and fifth toes and metatarsals. 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 Paternal Family History: Family History (Last Reviewed 06/05/18 @ 08:58 by Marta Santos) Mother CAD (coronary artery disease) Father Arthritis Brother Arthritis History Items: Heart Disease Review of Systems Constitutional: Denies: Chills, Fever, Weight Change HEENT: Denies: Head Aches, Sinus Congestion, Sinus Drainage Cardiovascular: Denies: Chest Pain, Palpitations Respiratory: Denies: Cough, Shortness of breath at rest, Sputum production Gastrointestinal: Denies: Abdominal Pain, Nausea, Vomiting Genitourinary: Denies: Dysuria Musculoskeletal: Reports: Foot Pain, Joint Pain, Joint stiffness, Joint Tenderness Skin: Denies: Rash, Wounds Neurological: Reports: Balance problems, Incoordination. Denies: Focal weakness, Numbness, Tingling Psychiatric: Denies: Anxiety, Depression, Homicidal Ideations, Suicidal Ideations Hematologic/ Lymphatic: Denies: Easy Bruising, Easy Bleeding VTE Information - Inpt Only VTE Present on Admission: No VTE Mechan Device Prophylaxis: None VTE Pharm Prophylaxis ordered?: Yes Patient Problems: Active and Suspected Problems (Last Reviewed 06/05/18 @ 08:58 by Marta Santos) Complicated fracture of left calcaneum (Acute) Complicated fracture of left talus (Acute) Charcot's joint, left ankle and foot (Acute) - Physical Exam General: Alert, Oriented x3, Cooperative HEENT: Atraumatic, PERRLA, EOMI, Normocephalic Oral: Moist Mucosa Neck: Supple, No JVD, Negative Carotid Bruits Lungs: Clear to auscultation, Normal air movement Cardiovascular: Regular rate, Regular Rhythm, Normal S1, Normal S2, No murmurs Abdomen: Bowel Sounds Present, Soft, Non Tender Extremities: Capillary Refill Less than 3 Seconds, Edema - Edema of left ankle and foot Skin: No rashes, No breakdown, - - Erythematous rash below left knee has improved. No increased temperature or ulcers Musculoskeletal: Arthritic Changes, Muscle Wasting, Tenderness - Tenderness of left ankle and foot. It is covered with Ata wrap bandage. Neurological: Cranial nerves II-XII grossly intact Psych/Mental Status: Normal Affect, Appropriate Vital Signs Temp Pulse Resp BP Pulse Ox 98.9 F 85 18 153/58 H 99 06/15/18 17:39 06/15/18 17:39 08/17/18 17:39 06/15/18 17:39 06/15/18 17:39 Oxygen Delivery Method Room Air Weight: 176 lb 2.389 oz Body Mass Index (BMI) 29.2 Laboratory Tests Past 24 Hrs WBC RBC Hgb Hct MCV MCH MCHC RDW RDW Differential Plt Count MPV Immature Gran % (Auto) Assessment/Plan All Active Problems (Last Reviewed 06/05/18 @ 08:58 by Marta Santos) Complicated fracture of left calcaneum (Acute) Complicated fracture of left talus (Acute) Charcot's joint, left ankle and foot (Acute) Osteomyelitis of ankle or foot (Resolved) Diabetic foot infection (Resolved) Diabetic infected right heel ulcer (Resolved) The patient is a 58 year old F with history of type 2 diabetes mellitus, complicated with diabetic neuropathy and Charcot joint is being admitted directly on the floor at the request of Loop Cutter Dr. Luke. 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 The patient twisted her left ankle at the end of March/early April 2018 on walking and fracture of left talus. Patient had immobility boot was advised immobilization but she quit using boot as she had fall on that. Patient kept on falling because of weakness of left ankle and not fracture gotten worse as per Dr. Luke. She sustained fragmented fracture of calcaneus with old fracture of talus. She came to Monday for left leg cellulitis below knee level and excruciating pain. She was given antibiotic Keflex which she is taking and was no sent home. Left leg cellulitis, erythema is much better but she still has localized pain, 10/10 intensity. Patient also supposed to see ID for suspected cellulitis/deep tissue infection because of excruciating pain but could not see ID as an outpatient. Furthermore, the patient was directly admitted for further management of pain, complicated fracture with left ankle Charcot joint Patient was having fever for 2-3 days prior to Monday but it has resolved after taking antibiotic and cellulitis is much improved. 1. Closed, complicated fracture of left talus and calcaneum with left ankle Charcot joint and diabetic neuropathy: [facility] Pain control. Nonweightbearing. PT and OT and case investigator consult for possible SNF placement for continued weightbearing and monitor fracture healing. Left ankle and foot x-ray is ordered. Dr. Luke is being consulted. Basic labs CBC, CMP, ESR and CRP ordered. Albumin is 2.0. Client phosphatase 246 probably of bone origin. K3.2. Mild hypokalemia: Potassium being replaced. 2. Recent, resolving left leg cellulitis below knee to ankle: Patient started on Keflex 500 mg every 6 hourly on Monday in ER. Patient took 4 days will need to take 1 more day. ID consult for concern of deep infection and further opinion regarding antibiotic. No leukocytosis. 3. 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 A1c tomorrow a.m. Accu-Cheks before meals and at bedtime and cover with NovoLog sliding scale. Patient is on Lantus 20 units subcu at bedtime and will continue it and adjust according to glucose checks. 4. Other chronic comorbidities include hypertension, history of previous osteomyelitis of left foot and ankle, peripheral neuropathy, tobacco use disorder, obesity and anxiety or depression: Home medication reconciliation done. Laboratory Results 06/15/18 18:14: ESR 21 06/15/18 18:14: C-React Prot Ext Range Pending 06/15/18 18:14: WBC 4.4, RBC 3.85 L, Hgb 11.7 L, Hct 35.7 L, MCV 92.7, MCH 30.4, MCHC 32.8, RDW 13.0, RDW Differential 43.6, Plt Count 253, MPV 9.4, Immature Gran % (Auto) 0.000, Neut % (Auto) 41.7 L, Lymph % (Auto) 46.7 H, [place] % (Auto) 7.4, Eos % (Auto) 3.7, Baso % (Auto) 0.5, Absolute Neuts (auto) 1.8 L, Absolute Lymphs (auto) 2.03, Total Counted Not Reportable 06/15/18 18:14: Sodium 144, Potassium 3.2 L, Chloride 107, Carbon Dioxide 27.0, Anion Gap 10, BUN 12, Creatinine 0.85, Estim Creat Clear Calc 63.33, Est GFR (MDRD) Af Amer 87, Est GFR (MDRD) Non-Af 72, BUN/Creatinine Ratio 14.1, Glucose 193 H, Calcium 8.2 L, Total Bilirubin 0.40, AST 44 H, ALT 26, Alkaline Phosphatase 246 H, Total Protein 6.4, Albumin 2.0 L, Globulin 4.4 H, Albumin/Globulin Ratio 0.5 L Total time spent in [id number]-[id number] encounter with history taking, physical exam, labs review, review of imaging and discussion of assessment and plan with the patient: 50 minutes This note was generated with eDos[employer] software. Every effort was made to ensure accuracy, however computerized latex foam worker mistakes may persist. Code Visit Inpatient E AND M: 07995 Init Hosp L3 06/15/181914 <Electronically signed by Ferdinand Liu MD> Date Ferdinand Liu MD Cosigner Signature: Date (if applicable) CC: Ferdinand Liu MD; Froilan Rosenthal MD Signed ANKLE MIN 3 VIEWS Observed: 06/15/2018 Status: F Source: [place] 7:[address] [facility] REPOSITORY [facility] Imaging Services [address] [place] [address] Ankle min 3 Views MR#: [id number] Acct: [id number] Name: MEREDITH ALBERTO Rep #: [id number] : 1960 F 58 From: Clyde Jones DO PCP: Galo ROBERTS,Froilan Andre Status: ADM IN Study: Ankle min 3 Views Date of Exam: 06/15/18 Exam# [id number] Ordering Dr: Ferdinand Liu MD STUDY: X-RAY - LEFT ANKLE REASON FOR EXAM: Female, 58 years old. Left ankle deformity, Charcot joint TECHNIQUE: 3 view(s) of the ankle. COMPARISON: None. FINDINGS: Overlying splint or cast material is noted. There is osseous destruction of the mid foot, particularly the anterior talus and calcaneus suggesting Charcot joint. Diffuse soft tissue swelling. No fracture RAD/Ankle min 3 Views IMPRESSION: Findings as above suggestive of Charcot joint Electronically Signed: Clyde Jones DO at 19:45 EDT Tel , Service support , CC: Ferdinand Liu MD; Froilan Rosenthal MD Data Security Coordinator: Signed FOOT MIN 3 VIEWS Observed: 06/15/2018 Status: F Source: [place] 7:[address] [facility] REPOSITORY [facility] Imaging Services [address] [place] [address] Foot min 3 Views MR#: [id number] Acct: [id number] Name: MEREDITH ALBERTO Rep #: [id number] : 1960 F 58 From: Clyde Jones DO PCP: Froilan Rosenthal MD, Chi Status: ADM IN Study: Foot min 3 Views Date of Exam: 06/15/18 Exam# [id number] Ordering Dr: Ferdinand Liu MD STUDY: X-RAY - LEFT FOOT CLINICAL: Female, 58 years old. Left foot deformity, Charcot joint TECHNIQUE: 3 view(s) of the foot. COMPARISON: None. FINDINGS: Status post amputation of the fourth and fifth digits. No evidence of acute fracture or dislocation. Cortical irregularity of the mid foot with some osseous destruction suggests Charcot joint versus osteomyelitis. Soft tissue swelling. Overlying splint material RAD/Foot min 3 Views IMPRESSION: As above Electronically Signed: Clyde Jones DO at 19:46 EDT Tel , Service support , CC: Ferdinand Liu MD; Froilan Rosenthal MD Data Security Coordinator: Signed ERYTHROCYTE SED RATE Collected: 06/15/2018 Status: F Source: [place] 6:[address] [facility] REPOSITORY TYPE CODE TESTS RESULT OUT OF RANGE REFERENCE UNITS LAB L102.0000 0-30 mm/hr Normal SED RATE 21 Performed By: #### L101.9900 #### [facility] [address] [place], [address] CBC W/DIFF, AUTOMATED Collected: 06/15/2018 Status: F Source: [place] 6:[address] [facility] REPOSITORY TYPE CODE TESTS RESULT OUT OF RANGE REFERENCE UNITS LAB L100.1000 4.4-11.0 K/mm3 Normal WBC 4.4 LAB L100.1200 4.2-5.4 M/mm3 Low RBC 3.85 LAB L100.1300 12.0-15.0 g/dl Low HGB 11.7 LAB L100.1400 37-47 % Low HCT 35.7 LAB L100.1500 81-99 fL Normal MCV 92.7 LAB L100.1600 27.0-32.0 pg Normal MCH 30.4 LAB L100.1700 32-36 g/gl Normal MCHC 32.8 LAB L100.1810 11.6-14.6 % Normal RDW CV 13.0 LAB L100.1820 35.1-43.9 fl Normal RDW SD 43.6 LAB L100.1900 150-450 K/mm3 Normal PLT 253 LAB L100.2000 6.2-12.0 fl Normal MPV 9.4 LAB L100.2100 47-70 % Low NEUT% 41.7 LAB L100.2200 19-41 % High LY% 46.7 LAB L100.2300 0-10 % Normal MONO% 7.4 LAB L100.2400 0-5 % Normal EO% 3.7 LAB L100.2500 0-1 % Normal BASO% 0.5 LAB L100.2550 0.0-0.9 % Normal IM GRAN % 0.000 Result Comment: IG% - Immature Granulocytes (promyelocytes, myelocytes and metamyelocytes) > 1% indicates that a LEFT SHIFT is Present. LAB L100.2620 2.0-7.7 X10 3/uL Low Absolute Neut 1.8 LAB L100.2720 0.83-4.51 X10 3/ul Normal Absolute Lymph 2.03 Performed By: #### L100.0100 #### [facility] [address] [place], [address] COMPREHENSIVE METABOLIC Collected: 06/15/2018 Status: F Source: [facility] 6:[address] [facility] REPOSITORY TYPE CODE TESTS RESULT OUT OF RANGE REFERENCE UNITS LAB L501.0100 74-106 mg/dL High GLU 193 Result Comment: Fasting Glucose result greater than or equal to 126 mg/dL suggests DIABETES MELLITUS per A.D.A. criteria. Please note revised GLUCOSE reference range effective 2017. LAB L501.1000 7-18 mg/dL Normal BUN 12 LAB L501.1100 0.55-1.02 mg/dL Normal CREAT,SERUM 0.85 Result Comment: The validity of the calculated GFR AND GFRAA in patients over 70 years has not been determined. Clinical correlation is essential. LAB L501.1110 >60 mL/min Normal EST GFR 72 Result Comment: Non- GFR Calc LAB L501.1115 >60 mL/min Normal EST GFR - AA 87 Result Comment: GFR Calc LAB L501.1255 ml/min Normal Estimated CRCL 63.33 LAB L501.1300 10-20 RATIO Normal BUN/CRE 14.1 LAB L501.1500 6.4-8. g/dL Normal 2 T PROT 6.4 LAB L501.1800 3.2-5. g/dL Low 0 ALB 2.0 LAB L501.1950 2.2-4. g/dL High 2 GLOB 4.4 LAB L501.2000 0.9-2. RATIO Low 4 A/G 0.5 LAB L501.2200 8.5-10 mg/dL Low .1 CA 8.2 LAB L501.4100 15-37 U/L High AST 44 LAB L501.4305 45-117 U/L High ALK P 246 LAB L501.4405 13-56 U/L Normal ALT 26 LAB L501.4600 0.20-1 mg/dL Normal .00 T BILI 0.40 LAB L501.5300 136-14 mmol/L Normal 5 NA 144 LAB L501.5600 3.5-5. mmol/L Low 1 K 3.2 LAB L501.5900 98-107 mmol/L Normal CL 107 LAB L501.6100 21.0-3 mmol/L Normal 2.0 CO2 27.0 LAB L501.6200 5-15 Normal GAP 10 Performed By: #### L500.4050 #### [facility] [address] [place] [place], [address] CRP Collected: 06/15/2018 Status: F Source: [place] 6:[address] [facility] REPOSITORY TYPE CODE TESTS RESULT OUT OF RANGE REFERENCE UNITS LAB L501.6710 0.0-3.0 mg/L High 10.20 C-REACTIVE PROT Result Comment: C-Reactive Protein (CRP) provides useful information for the diagnosis, therapy and monitoring of inflammatory processes and associated diseases. For the evaluation of Relative Risk for Cardiovascular Disease, a High Sensitivity CRP (HSCRP) should be ordered. Performed By: #### L501.6710 #### [facility] [address] [facility] [facility] [place], [address] VENOUS DUPLEX LOWER Observed: 06/11/2018 Status: F Source: [place] EXTREMITY 4:[address] [facility] REPOSITORY [facility] Cardiovascular Services [address] [place] [address] Venous Duplex US, Unilateral 06/11/18 1249 MR#: [id number] Acct: [id number] Name: MEREDITH ALBERTO Rep #: [id number] : 1960 58 From: Seamus Hernandez MD Attending Dr: Status: DEP ER Ordering Dr: Erika Jara MD Date: 06/11/18 Location: ED Sex: F C Admitted: Reason For Study: LEG PAIN Procedure LEFT Exam performed portable in ED. GSV is normal. A preliminary report was called and/or faxed CFV is compressible, spontaneous, phasic, to Dr. Jara. competent, and demonstrates normal augmentation. FV is compressible, spontaneous, phasic, competent and demonstrates normal augmentation. POP V is compressible, spontaneous, phasic, competent and demonstrates normal augmentation. T/P Trunk is compressible. PTV is compressible. LT PerV is compressible. Interpretation Summary Deep veins of the left lower extremity are patent and compressible segmentally. There is no evidence of left lower extremity deep vein thrombosis. Valvular competence appears intact within the proximal deep venous system on the left . The left greater saphenous vein appears patent and compressible segmentally. Ordering Physician: Erika Jara Referring Physician: Froilan Rosenthal Chi Performed By: Akankhsa Thomas RVT 06/11/18 1617 Date Seamus Hernandez MD CC: Erika Jara MD; Froilan Rosenthal MD Date Dictated: 06/11/18 1249 Date Transcribed: 06/11/18 1617 Data Security Coordinator: Signed EMERGENCY DEPARTMENT Observed: 06/11/2018 Status: F Source: [place] SUMMARY 3:[address] [facility] REPOSITORY [facility] Medical Records Department [address] [place] [address] Emergency Department Summary 06/11/18 1234 MR#: [id number] Acct: [id number] Name: MEREDITH ALBERTO Rep #: [id number] : 1960 58 From: Erika Jara MD PCP: Froilan Rosenthal MD, Chi Status: REG ER - ER Visit Summary Date of Service: 06/11/18 Chief Complaint: Left lower extremity pain History of Present Illness: The patient is a 58 F presenting with left lower extremity pain. She states she broke her foot approximately 2 months ago. Prior to that she had toes amputated from her left foot. She sees Dr. Luke. She complains of increasing pain to the medial aspect of the left foot with mild redness. She denies fever. Denies other complaints. Physical Examination: Vitals are stable. Patient is afebrile. Alert no acute distress. HEENT exam is unremarkable. Neck is supple. Lungs are clear and equal bilaterally. Heart is regular rate and rhythm. Abdomen is soft nontender nondistended. Extremities mild medial erythema left foot with mild calf tenderness. s/p 4th and 5th metatarsal amputation. Normal pulse. Skin is warm and dry. No focal neurologic deficit. Remainder of exam is unremarkable. Emergency Department Course and Treatment: Ultrasound of lower extremity shows no evidence of DVT. CBC shows a normal white count, ESR 30. Chemistries show glucose 173. CRP 40. Left foot x-ray shows neuropathic osteoarthropathy. Amputations of the fourth and fifth metatarsals. Heterotopic ossification. Left ankle x-ray shows findings in keeping with a Charcot's deformity of the midfoot with the overlying soft tissue swelling and calcification. She has an appointment with Dr. Luke tomorrow. Discussed with Dr Luke, she will be started on Keflex and will follow up with him at her scheduled appointment tomorrow. Advised to return to ED for worsening complaints. Disposition: Discharge home Impression: Chronic left lower extremity pain, mild left lower extremity cellulitis This note was generated with [employer] dictation software. It may contain incorrect words, spelling, and punctuation that were not noted in review of the chart prior to signing ED Disposition - Plan for ED Patient: Chief Complaint: Lower Extremity Injury Instructions: ED Infec Skin Cellulitis Prescriptions: Cephalexin [Keflex] 500 mg PO Q6 #40 capsule Referrals: Jose Angel Luke DPM [STAFF PHYSICIAN] - Froilan Rosenthal Chi, MD [Primary Care Provider] - What to do if you have Problems For any increased pain, shortness of breath, bleeding, nausea or vomiting, chest pain, or any unexpected problems, contact your Primary Care Provider. Call [facility] ([phone]) or report to the closest Emergency Room. Call 911 if necessary. 06/11/18 1286 <Electronically signed by Erika Jara MD> Date Erika Jara MD Cosigner Signature (If Indicated): Date CC: Froilan Rosenthal MD DISCHARGE INSTRUCTION Observed: 06/11/2018 Status: F Source: [place] 3:37 PM [facility] REPOSITORY [facility] Medical Records Department [address] [place] [address] Discharge Instruction 06/11/18 1536 MR#: [id number] Acct: [id number] Name: MEREDITH ALBERTO Rep #: [id number] : 1960 58 From: Erika Jara MD PCP: Froilan Rosenthal MD, Chi Status: REG ER ED Disposition - Plan for ED Patient: Chief Complaint: Lower Extremity Injury Instructions: ED Infec Skin Cellulitis Prescriptions: Cephalexin [Keflex] 500 mg PO Q6 #40 capsule Referrals: Froilan Rosenthal Chi, MD [Primary Care Provider] - Jose Angel Luke DPM [STAFF PHYSICIAN] - What to do if you have Problems For any increased pain, shortness of breath, bleeding, nausea or vomiting, chest pain, or any unexpected problems, contact your Primary Care Provider. Call [facility] ([phone]) or report to the closest Emergency Room. Call 911 if necessary. 06/11/18 1537 <Electronically signed by Erika Jara MD> Date Erika Jara MD Cosjasoner Signature (If Indicated): Date CC: Froilan Rosenthal MD CBC W/DIFF, AUTOMATED Collected: 06/11/2018 Status: F Source: [place] 12:[address] [facility] REPOSITORY TYPE CODE TESTS RESULT OUT OF RANGE REFERENCE UNITS LAB L100.1000 4.4-11.0 K/mm3 Normal WBC 5.3 LAB L100.1200 4.2-5.4 M/mm3 Low RBC 3.67 LAB L100.1300 12.0-15.0 g/dl Low HGB 11.8 LAB L100.1400 37-47 % Low HCT 34.0 LAB L100.1500 81-99 fL Normal MCV 92.6 LAB L100.1600 27.0-32.0 pg High MCH 32.2 LAB L100.1700 32-36 g/gl Normal MCHC 34.7 LAB L100.1810 11.6-14.6 % Normal RDW CV 12.6 LAB L100.1820 35.1-43.9 fl Normal RDW SD 40.9 LAB L100.1900 150-450 K/mm3 Normal PLT 246 LAB L100.2000 6.2-12.0 fl Normal MPV 9.6 LAB L100.2100 47-70 % Normal NEUT% 56.2 LAB L100.2200 19-41 % Normal LY% 30.6 LAB L100.2300 0-10 % Normal MONO% 7.9 LAB L100.2400 0-5 % Normal EO% 4.0 LAB L100.2500 0-1 % Normal BASO% 0.9 LAB L100.2550 0.0-0.9 % Normal IM GRAN % 0.400 Result Comment: IG% - Immature Granulocytes (promyelocytes, myelocytes and metamyelocytes) > 1% indicates that a LEFT SHIFT is Present. LAB L100.2620 2.0-7.7 X10 3/uL Normal Absolute Neut 3.0 LAB L100.2720 0.83-4.51 X10 3/ul Normal Absolute Lymph 1.62 Performed By: #### L100.0100, L101.9900 #### [facility] [address] [place], [place], [address] ERYTHROCYTE SED RATE Collected: 06/11/2018 Status: F Source: [place] 12:[address] [facility] REPOSITORY TYPE CODE TESTS RESULT OUT OF RANGE REFERENCE UNITS LAB L102.0000 0-30 mm/hr Normal SED RATE 30 Performed By: #### L100.0100, L101.9900 #### [facility] [address] [place], [address] BASIC METABOLIC Collected: 06/11/2018 Status: F Source: [place] PROFILE (BMP) 12:[address] [facility] REPOSITORY TYPE CODE TESTS RESULT OUT OF RANGE REFERENCE UNITS LAB L501.0100 74-106 mg/dL High GLU 173 Result Comment: Fasting Glucose result greater than or equal to 126 mg/dL suggests DIABETES MELLITUS per A.D.A. criteria. Please note revised GLUCOSE reference range effective 2017. LAB L501.1000 7-18 mg/dL Normal BUN 13 LAB L501.1100 0.55-1.02 mg/dL Normal CREAT,SERUM 0.73 Result Comment: The validity of the calculated GFR AND GFRAA in patients over 70 years has not been determined. Clinical correlation is essential. LAB L501.1110 >60 mL/min Normal EST GFR 86 Result Comment: Non- GFR Calc LAB L501.1115 >60 mL/min Normal EST GFR - AA 105 Result Comment: GFR Calc LAB L501.1255 ml/min Normal Estimated CRCL 70.77 LAB L501.1300 10-20 RATIO Normal BUN/CRE 17.8 LAB L501.2200 8.5-10 mg/dL Low .1 CA 8.3 LAB L501.5300 136-14 mmol/L Normal 5 NA 140 LAB L501.5600 3.5-5. mmol/L Normal 1 K 3.9 Result Comment: Moderate Hemolysis, Result may be falsely increased. LAB L501.5900 98-107 mmol/L Normal CL 105 LAB L501.6100 21.0-32.0 mmol/L Normal CO2 24.0 LAB L501.6200 5-15 Normal GAP 11 Performed By: #### L500.2500, L501.6710 #### [facility] [address] [place], [address] CRP Collected: 06/11/2018 Status: F Source: [place] 12:[address] [facility] REPOSITORY TYPE CODE TESTS RESULT OUT OF RANGE REFERENCE UNITS LAB L501.6710 0.0-3.0 mg/L High 40.50 C-REACTIVE PROT Result Comment: C-Reactive Protein (CRP) provides useful information for the diagnosis, therapy and monitoring of inflammatory processes and associated diseases. For the evaluation of Relative Risk for Cardiovascular Disease, a High Sensitivity CRP (HSCRP) should be ordered. Performed By: #### L500.2500, L501.6710 #### [facility] [address] [place], [address] FOOT MIN 3 VIEWS Observed: 06/11/2018 Status: F Source: [place] 12:[address] [facility] REPOSITORY [facility] Imaging Services [address] [place] [address] Foot min 3 Views MR#: [id number] Acct: [id number] Name: MEREDITH ALBERTO Rep #: [id number] : 1960 F 58 From: Aneesh Mcnamara MD PCP: Galo ROBERTS,Froilan Andre Status: REG ER Study: Foot min 3 Views Date of Exam: 06/11/18 Exam# [id number] Ordering Dr: Erika Jara MD STUDY: X-RAY - LEFT FOOT CLINICAL: Increasing pain, chills. TECHNIQUE: 3 view(s) of the foot. COMPARISON: Radiographs 07/24/2017. FINDINGS: Since the prior study is been interval development of fragmentation of the head of the talus at the talonavicular articulation and calcaneus at the posterior subtalar and calcaneocuboid articulations consistent with neuropathic osteoarthropathy. There is amputation of the proximal fourth and fifth metatarsals as on the prior study without demonstrated active bone destruction. Normal metatarsophalangeal joint of the great toe. Normal tibial and fibular sesamoid bones. Normal interphalangeal joint of the great toe. Normal phalanges of the great toe. Normal second and third metatarsophalangeal joints. Normal interphalangeal joints and phalanges of the second and third toes. There is interval development of heterotopic ossification adjacent to the distal tibia and fibula, especially posteriorly. There is soft tissue swelling. RAD/Foot min 3 Views IMPRESSION: Neuropathic osteoarthropathy. Amputations of the fourth and fifth metatarsals.. Heterotopic ossification. Electronically Signed: Aneesh Mcnamara MD at 14:05 EDT Tel , Service support , CC: Erika Jara MD; Froilan Rosenthal MD Data Security Coordinator: Signed ANKLE MIN 3 VIEWS Observed: 06/11/2018 Status: F Source: [place] 12:[address] [facility] REPOSITORY [facility] Imaging Services [address] [place] [address] Ankle min 3 Views MR#: [id number] Acct: [id number] Name: MEREDITH ALBERTO Rep #: [id number] : 1960 F 58 From: Jakob Hirsch MD PCP: Froilan Rosenthal MD, Chi Status: REG ER Study: Ankle min 3 Views Date of Exam: 06/11/18 Exam# [id number] Ordering Dr: Erika Jara MD STUDY: X-RAY - LEFT ANKLE REASON FOR EXAM: Female, 58 years old. Increasing pain. History of the left foot fracture. TECHNIQUE: 3 view(s) of the ankle. COMPARISON: Comparison is made with prior examination dated July 24, 2017. FINDINGS: Normal visualized distal tibia and fibula. Normal medial and lateral malleoli. Narrowing of the tibial talar joint. There is evidence of Charcot's deformity of the mid foot with evidence of an old fracture of the anterior aspect of the calcaneus as well as the anterior aspect of the talus. Diffuse soft tissue swelling and soft tissue calcifications. RAD/Ankle min 3 Views IMPRESSION: Findings in keeping with a Charcot's deformity of the midfoot as described with the overlying soft tissue swelling and calcification. Electronically Signed: Jakob iHrsch MD at 14:37 EDT Tel [phone], Service support , CC: Erika Jara MD; Froilan Rosenthal MD Data Security Coordinator: Signed CARDIOLOGY VISIT Observed: 06/05/2018 Status: F Source: [place] REPORT 1:[address] [facility] REPOSITORY [facility] [address] [place] [address] OFFICE VISIT Date of Service: 06/05/18 MR#: [id number] Acct: [id number] Name: MEREDITH ALBERTO Rep #: [id number] : 1960 Provider: Luis Castañeda MD Age/Sex: 58/F Location: [facility] Status: Signed HPI HPI Chief Complaint: Abnormal EKG Details: MEREDITH ALBERTO, is a 58 F who presents to the office today for evaluation of abnormal EKG. Patient is a diabetic, current smoker less than one pack of cigarettes per day for the past 25 years, with hypertension, unknown cholesterol, peripheral vascular disease status post left toe amputation about a year or so ago for gangrene. In addition the patient has significant anxiety, and is on chronic pain medications and methadone. Patient is in a wheelchair today, but walks at palliative care with a walker and cane. She denies any exertional chest pain or angina. This part of her routine evaluation she underwent an EKG in her PCPs office on 05/08/18 which showed normal sinus rhythm, poor R-wave progression across the precordium and the suggestion of a new anterolateral wall myocardial infarction. Previous EKG showed normal sinus rhythm with appropriate R-wave progression. On further history she denies any exertional chest pain, angina, shortness of breath. She has a very subdued affect in the office today. She has had previous urine screens which suggest that she may be obtaining narcotic medications from other sources and her methadone was discontinued. Previous pharmacologic stress test in 2008 was negative for inducible ischemia. In our office today her blood pressure is 120/60, pulse is 112 and regular. Physical exam demonstrates clear lungs bilaterally, no carotid bruits or thrills, regular rate and rhythm, normal S1/S2, no S3 or S4. She has no edema. Her lipids are pending. Echo is pending. Dobutamine echo is pending. Intake Vital Signs06/05/18 Height 5 ft 4 in 06/05/18 Weight: 160 lb 06/05/18 Body Mass Index (BMI) 27.4 06/05/18 Blood Pressure 120/60 Intake Visit Reasons: ABN EKG ([place]) Stacker Attendant Required: No Accompanied by: Friend Is patient in pain?: Yes Pain scale (1-10): 10 Allergies clindamycin [From Cleocin] Allergy (Verified 06/05/18 13:30) Itching ondansetron [From Zofran (as hydrochloride)] Allergy (Verified 06/05/18 13:30) Nausea Sulfa (Sulfonamide Antibiotics) Allergy (Verified 06/05/18 13:30) Itching Medications Omeprazole 20 mg PO DAILY 12/16/16 [History Confirmed 06/05/18] Docusate Sodium [Colace] 200 mg PO BID 07/23/17 [History Confirmed 06/05/18] Duloxetine Hcl [Cymbalta] 60 mg PO DAILY 07/23/17 [History Confirmed 06/05/18] atorvastatin 40 mg tablet 40 mg PO QDAY 06/04/18 [History Confirmed 06/05/18] insulin glargine (U-100) 100 unit/mL (3 mL) subcutaneous pen 15 unit SC .COMPLEX 06/04/18 [History Confirmed 06/05/18] insulin lispro (U-100) 100 unit/mL subcutaneous pen 6 unit SC .COMPLEX ml 06/04/18 [History Confirmed 06/05/18] lisinopril 20 mg tablet 20 mg PO .COMPLEX 06/04/18 [History Confirmed 06/05/18] lorazepam 0.5 mg tablet 0.5 mg PO BID PRN tab 06/04/18 [History Confirmed 06/05/18] multivitamin-ferrous fumarate-folic acid 18 mg-400 mcg tablet 1 tab PO QDAY 06/04/18 [History Confirmed 06/05/18] [facility] Medical History Chronic pain (Chronic) Abnormal EKG (Chronic) HTN (hypertension) (Chronic) Type II diabetes mellitus (Chronic) Peripheral neuropathy (Chronic) Tobacco use disorder (Chronic) Surgical History Status post amputation of toe of left foot (Chronic) Family History Mother CAD (coronary artery disease) Father Arthritis Brother Arthritis Social History Smoking Status: Light Smoker (<10/day) ROS Const Const: Positive for other (Chronic pain. Fell 4 times in 1 day per friend.) and fatigue; negative for weakness, body ache, fever(s), headache(s), chills, frequent falls, night sweats, daytime sleepiness, difficulty sleeping, weight gain, weight loss, increased appetite, poor appetite, anorexia or excessive sweating Eyes Eyes: Negative for blind spots, loss of peripheral vision, transient loss of vision, blurry vision, change in vision, double vision, floaters, tunnel vision or other ENT ENT: Negative for dizziness, hearing loss, tinnitus, Nosebleed/epistaxis, post nasal drip, lip swelling, tongue swelling, bleeding gums, hoarseness, neck pain, dry mouth, other, headache(s) or balance problems Cardio Chest Pain: No Palpitations: No Edema: None Muscle aches with walking: None Additional Details: One singular episode epigastric pain after eating pizza, resolved immediately with belching. Resp Respiratory: Negative for SOB with activity, SOB at rest, SOB orthopnea\SOB lying down, Cough, Coughing up blood/hemoptysis, chest congestion, pain on inspiration, snoring, stridor, wheezing, crackles, paroxysmal nocturnal dyspnea or other GI GI: Negative nausea, vomiting, heartburn, constipation, belching, bloating, cramping, vomiting blood/hematemesis, bright, red blood in stools, black,tarry stools, loose stools, Difficulty Swallowing or other : Negative for hematuria, frequent nighttime urination/ nocturia, erectile dysfunction or abnormal vaginal bleeding Musc Musc: Positive for joint pain (Toes amputated left foot for osteomyelitis, phantom pain); negative for balance problems, muscle aches/ myalgia or muscle weakness Skin Skin: Negative redness, non-healing lesions, rash, unusual bruising, skin ulcer, wounds, jaundice or other Neuro Neuro: Negative for blurry vision, double vision, dizziness, lightheadedness, near syncope, syncope, orthostatic symptoms, confusion, memory loss, restless legs, vertigo, seizures, lack of coordination, other, weakness, headache(s) or frequent falls Serafin Hematologic/Lymphatic: Negative for easy bleeding, easy bruising, enlarged lymph nodes or other Endo Endo: Positive for fatigue; negative for excessive sweating, cold intolerance, heat intolerance, flushing, increased thirst/drinking, increased hunger, hair loss, hair growth or other Psych Psych: Negative for anxiety, depression, thoughts of harming anyone, thoughts of harming yourself, visual hallucinations, panic attacks or audible hallucinations Allergy Allergy/Immunology: Negative for lip swelling, Negative for tongue swelling, Negative for rash, Negative for throat swelling, Negative for hives Cardiology Exam Const Appearance: cooperative, healthy appearing and no acute distress Nutritional Appearance: well nourished Orientation: alert, oriented x3 and oriented to person Head Head: normal to inspection, atraumatic and normocephalic Nose: external nose normal Face and Sinus: face symmetric Mouth: oral mucosae normal Eyes General: appearance normal, both eyes and all related structures Eyelids: eyelids normal Conjunctivae: conjunctivae normal Pupils: PERRL and normal by confrontation EOM: EOM intact bilaterally Neck Neck: normal visual inspection and full ROM Carotids: normal carotid upstroke Chest Chest inspection: normal inspection of the chest Auscultation: Bilateral: Clear to Auscultation Cardio Palpation: normal PMI Rate: regular rate Rhythm: regular rhythm Heart sounds: S1 normal and S2 normal GI GI: normal to inspection, no hepatosplenomegaly and bowel sounds present Neuro General: alert, oriented x3, awake, CN's II-XI intact bilaterally and moves all extremities Skin Skin: no rashes or lesions noted Extremities Pulses: Normal: Right Femoral Pulse, Left Femoral Pulse, Right Dorsalis Pedis Pulse, Left Dorsalis Pedis Pulse, Right Posterior Tibial Pulse, Left Posterior Tibial Pulse, Right Radial Pulse, Left Radial Pulse Lower Extremity Edema: None: Bilateral Psych Psychological: normal affect Assessment AND Plan 1. Abnormal EKG R94.31 ekg's indicating possible previous inferior infarct Plan 1. Abnormal EKG: The patient recently underwent an EKG which showed possible newly diagnosed lateral wall myocardial infarction versus lead misplacement. Patient has several risk factors for coronary disease including her age, diabetes, hypertension, and tobacco use. I recommended that she undergo a 2D echo with Doppler to evaluate her LV function. If this is normal she will then proceed to a dobutamine echocardiogram to evaluate for possible ischemia given her abnormal EKG. If either one is grossly abnormal, the patient may require a diagnostic coronary angiogram. If however her echocardiogram and dobutamine echocardiogram are negative, I will hold off on recommending a catheterization at this time. In addition we will obtain a fasting lipid profile I would recommend an LDL less than 70 given her diabetic history and peripheral vascular disease. In the meantime she will continue baby aspirin, lisinopril and Lipitor. Orders Orders: 2. Tobacco use disorder F17.200 Plan 2. Tobacco cessation: I had a long and thorough discussion with the patient regarding tobacco abuse, and strongly recommended that she discontinue all tobacco products. Patient has voiced understanding and agrees to attempt a quit plan. 3. Return office in 6 months. This note was generated using a voice recognition system and there may be incorrect words, spelling or punctuation that were not noted when reviewing the office note prior to saving. Plan Detail Other Orders Orders: Other Medications Discontinued: oxycodone Discontinued Reason: Order5 mg PO Q6H PRN PRN Moderate Pain (pain Marta A Danielle Changed scale 4-5) Follow Up +6M (Garry) Coding Level of Care Code Off vis,new,level 4 Diagnoses Abnormal EKG R94.31 Tobacco use disorder F17.200 Coding Level of Care Code Off vis,new,level 4 Diagnoses Abnormal EKG R94.31 Tobacco use disorder F17.200 06/05/18 1352 <Electronically signed by Luis Castañeda MD> Date Luis Castañeda MD Cosigner Signature: Date (if applicable) CC: Froilan Rosenthal MD COMPREHENSIVE METABOLIC Collected: 05/17/2018 Status: F [facility] [facility] REPOSITORY TYPE CODE TESTS RESULT OUT OF RANGE REFERENCE UNITS LAB L501.0100 74-106 mg/dL High GLU 285 Result Comment: Glucose result greater than or equal to 200 mg/dL suggests DIABETES MELLITUS per A.D.A. criteria. Please note revised GLUCOSE reference range effective 2017. LAB L501.1000 7-18 mg/dL Normal BUN 10 LAB L501.1100 0.55-1.02 mg/dL Normal CREAT,SERUM 0.86 Result Comment: The validity of the calculated GFR AND GFRAA in patients over 70 years has not been determined. Clinical correlation is essential. LAB L501.1110 >60 mL/min Normal EST GFR 72 Result Comment: Non- GFR Calc LAB L501.1115 >60 mL/min Normal EST GFR - AA 87 Result Comment: GFR Calc LAB L501.1300 10-20 RATIO Normal BUN/CRE 11.7 LAB L501.1500 6.4-8.2 g/dL T Normal PROT 7.1 LAB L501.1800 3.2-5.0 g/dL Low ALB 2.4 LAB L501.1950 2.2-4.2 g/dL High GLOB 4.7 LAB L501.2000 0.9-2.4 RATIO Low A/G 0.5 LAB L501.2200 8.5-10.1 mg/dL CA Normal 8.8 LAB L501.4100 15-37 U/L High AST 38 LAB L501.4305 45-117 U/L High ALK P 267 LAB L501.4405 13-56 U/L Normal ALT 22 LAB L501.4600 0.20-1.00 mg/dL High T BILI 1.10 LAB L501.5300 136-145 mmol/L NA Normal 137 LAB L501.5600 3.5-5.1 mmol/L K Normal 3.5 LAB L501.5900 98-107 mmol/L CL Normal 100 LAB L501.6100 21.0-32.0 mmol/L Normal CO2 30.0 LAB L501.6200 5-15 Normal GAP 7 Performed By: #### L500.4050, L501.6710 #### [facility] [address] [place], [address] CRP Collected: 05/17/2018 Status: F Source: [place] 10:[address] [facility] REPOSITORY TYPE CODE TESTS RESULT OUT OF RANGE REFERENCE UNITS LAB L501.6710 0.0-3.0 mg/L High 12.70 C-REACTIVE PROT Result Comment: C-Reactive Protein (CRP) provides useful information for the diagnosis, therapy and monitoring of inflammatory processes and associated diseases. For the evaluation of Relative Risk for Cardiovascular Disease, a High Sensitivity CRP (HSCRP) should be ordered. Performed By: #### L500.4050, L501.6710 #### [facility] [address] [place], [address] ERYTHROCYTE SED RATE Collected: 05/17/2018 Status: F Source: [place] 10:[address] [facility] REPOSITORY TYPE CODE TESTS RESULT OUT OF RANGE REFERENCE UNITS LAB L102.0000 0-30 mm/hr Normal SED RATE 23 Performed By: #### L101.9900, L100.0100 #### [facility] [address] [place], [address] CBC W/DIFF, AUTOMATED Collected: 05/17/2018 Status: F Source: [place] 10:[address] [facility] REPOSITORY TYPE CODE TESTS RESULT OUT OF RANGE REFERENCE UNITS LAB L100.1000 4.4-11.0 K/mm3 Normal WBC 6.5 LAB L100.1200 4.2-5.4 M/mm3 Normal RBC 4.38 LAB L100.1300 12.0-15.0 g/dl Normal HGB 13.4 LAB L100.1400 37-47 % Normal HCT 40.2 LAB L100.1500 81-99 fL Normal MCV 91.8 LAB L100.1600 27.0-32.0 pg Normal MCH 30.6 LAB L100.1700 32-36 g/gl Normal MCHC 33.3 LAB L100.1810 11.6-14.6 % Normal RDW CV 13.0 LAB L100.1820 35.1-43.9 fl Normal RDW SD 43.5 LAB L100.1900 150-450 K/mm3 Normal PLT 187 LAB L100.2000 6.2-12.0 fl Normal MPV 11.1 LAB L100.2100 47-70 % Normal NEUT% 53.3 LAB L100.2200 19-41 % Normal LY% 33.8 LAB L100.2300 0-10 % Normal MONO% 6.5 LAB L100.2400 0-5 % High EO% 5.4 LAB L100.2500 0-1 % Normal BASO% 0.8 LAB L100.2550 0.0-0.9 % Normal IM GRAN % 0.200 Result Comment: IG% - Immature Granulocytes (promyelocytes, myelocytes and metamyelocytes) > 1% indicates that a LEFT SHIFT is Present. LAB L100.2620 2.0-7.7 X10 3/uL Normal Absolute Neut 3.4 LAB L100.2720 0.83-4.51 X10 3/ul Normal Absolute Lymph 2.18 Performed By: #### L101.9900, L100.0100 #### [facility] [address] [place], [address] VITAMIN D,25 HYDROXY Collected: 05/17/2018 Status: F Source: [place] 10:[address] [facility] REPOSITORY TYPE CODE TESTS RESULT OUT OF REFERENCE UNITS RANGE LAB L506.1000 29.95-100.01 ng/mL Low Vitamin D 5.4 25-OH Result Comment: Vitamin D 25(OH) Status Range Deficiency <20 ng/mL (50nmol/L) Insuffciency 20 - 30 ng/mL (50 - 75 nmol/L) Sufficiency 30 - 100 ng/mL (75 - 250 nmol/L) Toxicity >100 ng/mL (>250 nmol/L) Performed By: #### L506.1000 #### [facility] [address] [place], [address] LOWER EXT JOINT ONLY Observed: 05/15/2018 Status: F Source: [place] (ROUTINE) 9:[address] [facility] REPOSITORY [facility] Imaging Services [address] [place] [address] Lower Ext Joint Only (Routine) MR#: [id number] Acct: [id number] Name: ALBERTOMEREDITH Rep #: [id number] : 1960 F 58 From: Vince Jones MD PCP: Galo ROBERTS,Froilan Andre Status: REG CLI Study: Lower Ext Joint Only (Routine) Date of Exam: 05/15/18 Exam# [id number] Ordering Dr: Jose Angel Luke DPM STUDY: MRI LEFT ANKLE WITHOUT CONTRAST REASON FOR EXAM: Female, 58 years old. Charcot arthropathy possible AVN TECHNIQUE: Standardized fat and water weighted pulse sequences were obtained in all 3 orthogonal planes. COMPARISON: MRI foot July 14, 2017 FINDINGS: There is skin thickening and soft tissue swelling of the ankle and foot. There is transmetatarsal amputation of the fourth and fifth toes. There is moderate marrow edema of the distal tibia and fibula and talus and calcaneus and navicular and cuboid and cuneiform bones. There are curvilinear regions of subchondral diminished signal of the calcaneus and cuboid with possible avascular necrosis. There is osteochondral fracture of the anterior talus, series 11 image 09/26 Normal posterior tibialis tendon. Normal flexor digitorum longus tendon. Normal flexor hallucis longus tendon. There is a tenosynovitis of the peroneal tendons without a demonstrated tendon tear. Normal tibialis anterior tendon. Normal extensor hallucis longus tendon. Normal extensor digitorum longus tendons. Normal Achilles tendon and teno-osseous insertion. Normal plantar fascia. Normal plantar calcaneal tubercles. Normal intrinsic muscles of the rearfoot. Normal distal tibiofibular syndesmotic ligamentous complex. Normal lateral ligamentous complex. Normal subtalar ligaments and sinus tarsi. Normal deltoid ligamentous complexes. Normal plantar calcaneonavicular (spring) ligament. There is a joint effusion of the tibiotalar articulation with capsular distension. Normal talar dome. There is a joint effusion of the posterior subtalar articulation with capsular distension. There is a joint effusion of the talonavicular articulation with capsular distension. Normal calcaneocuboid articulation. Normal navicular-cuneiform articulations. MRI/Lower Ext Joint Only (Routine) IMPRESSION: Marrow edema at the ankle involving lower leg and hindfoot bones consistent with Charcot arthropathy. Contiguous spread osteomyelitis could be considered in the setting of infection. There is no abscess. There is osteochondral fracture of the talus. 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 Electronically Signed: Vince Jones MD at 17:16 EDT , Service support , CC: Jose Angel Luke DPM; Froilan Rosenthal MD Data Security Coordinator: Signed CBC W/DIFF, AUTOMATED Collected: 12/13/2017 Status: F Source: [place] 3:[address] [facility] REPOSITORY TYPE CODE TESTS RESULT OUT OF RANGE REFERENCE UNITS LAB L100.1000 4.4-11.0 K/mm3 Normal WBC 5.6 LAB L100.1200 4.2-5.4 M/mm3 Normal RBC 4.66 LAB L100.1300 12.0-15.0 g/dl Normal HGB 14.6 LAB L100.1400 37-47 % Normal HCT 45.1 LAB L100.1500 81-99 fL Normal MCV 96.8 LAB L100.1600 27.0-32.0 pg Normal MCH 31.3 LAB L100.1700 32-36 g/gl Normal MCHC 32.4 LAB L100.1810 11.6-14.6 % Normal RDW CV 13.5 LAB L100.1820 35.1-43.9 fl High RDW SD 47.8 LAB L100.1900 150-450 K/mm3 Normal PLT 169 LAB L100.2000 6.2-12.0 fl Normal MPV 11.8 LAB L100.2100 47-70 % Low NEUT% 42.6 LAB L100.2200 19-41 % High LY% 45.1 LAB L100.2300 0-10 % Normal MONO% 6.8 LAB L100.2400 0-5 % Normal EO% 5.0 LAB L100.2500 0-1 % Normal BASO% 0.5 LAB L100.2550 0.0-0.9 % Normal IM GRAN % 0.000 Result Comment: IG% - Immature Granulocytes (promyelocytes, myelocytes and metamyelocytes) > 1% indicates that a LEFT SHIFT is Present. LAB L100.2620 2.0-7.7 X10 3/uL Normal Absolute Neut 2.4 LAB L100.2720 0.83-4.51 X10 3/ul Normal Absolute Lymph 2.51 Performed By: #### L100.0100 #### [facility] [address] [place], [address] COMPREHENSIVE METABOLIC Collected: 12/13/2017 Status: F Source: [place] 3:[address] [facility] REPOSITORY TYPE CODE TESTS RESULT OUT OF RANGE REFERENCE UNITS LAB L501.0100 74-106 mg/dL High GLU 141 Result Comment: Fasting Glucose result greater than or equal to 126 mg/dL suggests DIABETES MELLITUS per A.D.A. criteria. Please note revised GLUCOSE reference range effective 2017. LAB L501.1000 7-18 mg/dL Normal BUN 13 LAB L501.1100 0.55-1.02 mg/dL High CREAT,SERUM 1.05 Result Comment: The validity of the calculated GFR AND GFRAA in patients over 70 years has not been determined. Clinical correlation is essential. LAB L501.1110 >60 mL/min Low EST GFR 57 Result Comment: Non- GFR Calc LAB L501.1115 >60 mL/min Normal EST GFR - AA 69 Result Comment: GFR Calc LAB L501.1300 10-20 RATIO Normal BUN/CRE 12.4 LAB L501.1500 6.4-8.2 g/dL T Normal PROT 8.1 LAB L501.1800 3.2-5.0 g/dL Low ALB 2.9 LAB L501.1950 2.2-4.2 g/dL High GLOB 5.2 LAB L501.2000 0.9-2.4 RATIO Low A/G 0.6 LAB L501.2200 8.5-10.1 mg/dL CA Normal 8.8 LAB L501.4100 15-37 U/L High AST 50 LAB L501.4305 45-117 U/L High ALK P 211 LAB L501.4405 13-56 U/L Normal ALT 31 Result Comment: Please note revised ALT reference range effective 2017. LAB L501.4600 0.20-1.00 mg/dL Normal T BILI 0.80 LAB L501.5300 136-145 mmol/L Normal NA 136 LAB L501.5600 3.5-5.1 mmol/L Normal K 3.8 LAB L501.5900 98-107 mmol/L Normal CL 101 LAB L501.6100 21.0-32.0 mmol/L Normal CO2 27.0 LAB L501.6200 5-15 Normal GAP 8 Performed By: #### L500.4050, L501.9520 #### [facility] [address] [place], [place], [address] THYROID STIM HORMONE Collected: 12/13/2017 Status: F Source: [place] (TSH) 3:[address] [facility] REPOSITORY TYPE CODE TESTS RESULT OUT OF RANGE REFERENCE UNITS LAB L501.9520 0.358-3.74 uIU/mL Normal TSH 0.67 Performed By: #### L500.4050, L501.9520 #### [facility] [address], [address] VITAMIN D,25 HYDROXY Collected: 12/13/2017 Status: F Source: [place] 3:[address] [facility] REPOSITORY TYPE CODE TESTS RESULT OUT OF REFERENCE UNITS RANGE LAB L506.1000 19.95-100.01 ng/mL Low Vitamin D 4.6 25-OH Result Comment: Vitamin D 25(OH) Status Range Deficiency <20 ng/mL (50nmol/L) Insuffciency 20 - 30 ng/mL (50 - 75 nmol/L) Sufficiency 30 - 100 ng/mL (75 - 250 nmol/L) Toxicity >100 ng/mL (>250 nmol/L) Performed By: #### L506.1000 #### [facility] [address] [place], [place], [address] HEPATITIS C ANTIBODIES Collected: 12/13/2017 Status: F Source: [place] 3:[address] [facility] REPOSITORY TYPE CODE TESTS RESULT OUT OF RANGE REFERENCE UNITS LAB L3100.0650 0.0-0.9 s/co ratio Normal HEP C AB 0.1 Result Comment: Negative: < 0.8 Indeterminate: 0.8 - 0.9 Positive: > 0.9 The CDC recommends that a positive HCV antibody result be followed up with a HCV Nucleic Acid Amplification test (349568). Performed at: [address] [id number] Sash Repairer: Eliazar Duarte PhD, Phone: [phone] Performed By: #### L3100.0625 #### [facility] (refer to report for specific site) refer to report for address and phone number ALLERGIES ALLERGIES DATE TYPE / CODE NAME / CODE REACTION SEVERITY SOURCE 08/27/2018 Drug Sulfa Itching Unknown [place] [facility]160 (Sulfonamide [facility] 86246(SNOMED Antibiotics)/ Repository CT) [id number](RX NORM) 08/27/2018 Drug ondansetron/F Nausea Unknown [facility]/4160 [id number](RXN [facility] [address]40(SNOMED ORM) Repository CT) 08/24/2018 Drug clindamycin/F Itching Unknown [facility]/4160 [id number](RXN [facility] 30024(SNOMED ORM) Repository CT) ENCOUNTERS ENCOUNTERS ADMIT/DISCHARGE ACCOUNT ADMITTING ENCOUNTER LOCATION SOURCE NUMBER CLASS 10/10/2018 [id number] Amb[place] [facility] ing[facility] Repository 09/26/2018 [id number] Ambulatory [facility] [place] [facility] Repository 09/26/2018 [id number] Amb[place] [facility] Repository 09/24/2018 [id number] Ambulatory [place] 9 [facility] ing:CVS Repository 09/06/2018 [id number] Ambulatory [place] Hannah 4 [facility] ing:LAB.FUTUR Repository E 08/28/2018/ [id number] Ambulatory [place] Hannah 8 3 [facility] ing:SDCRoom: Repository AC02 08/06/2018 [id number] Ambulatory [place] Hannah 4 [facility] ing:CT Repository 06/15/2018/ [id number] Noe, Inpatient [place] 8 3 [place] Encounter [facility] ing:XV8Ygsu: Repository OP171Zon: 1 06/15/2018 [id number] Noe, Ambulatory BMSBuilding:B [place] 6 [place].[facility] Repository 06/15/2018 [id number] Noe, Ambulatory BMSBuilding:B [place] 1 [place].[facility] Repository 06/15/2018 [id number] Noe, Ambulatory BMSBuilding:B [place] 1 [place].[facility] Repository 06/15/2018 [id number] Noe, Ambulatory BMSBuilding:B [place] 5 [place] [facility] Repository 06/15/2018 [id number] Noe, Ambulatory BMSBuilding:B [place] 8 [place].[facility] Repository 06/15/2018 [id number] Noe, Ambulatory BMSBuilding:B [place] 3 [place].[facility] Repository 06/11/2018/ [id number] Emergency [place] 8 6 [facility] ing:ED Repository 06/05/2018/ [id number] Ambulatory BMSBuilding:B [place] 8 7 [facility] Repository 06/04/2018 [id number] Ambulatory BMSBuilding:B [place] 0 [facility] Repository 05/17/2018 [id number] Ambulatory [place] 2 [facility] ing:MTLAB Repository 05/15/2018 [id number] Ambulatory [place] 7 [facility] ing:MRI Repository 12/13/2017 [id number] Ambulatory [place] 1 [facility] ing:POLAB3 Repository PAYERS PAYERS ENCOUNTER GUARANTOR PAYER SUBSCRIBER SOURCE 10/10/2018 MEREDITH J Primary MEREDITH J [place] MILLERGLENDORA Insurance:ITASOLEILANI ALBERTOB: [place] [address] Policy Number: [id number] [id number] [place]ository [place] [address]Zcq: (330) Date:2018-06-05 O [phone] () [address]ATTN: [place] [address]AY: 10/10/2018 Secondary NOT GIVENUNK [place] Insurance:SELF PAY [facility] Number: Effective Repository Date:2018-06-05 09/26/2018 MEREDITH J Primary MEREDITH J [place] MILLERGLENDORA [facility] [place] [address] Policy Number: [id number] [facility], [id number] [place] [address]Jmp: (330) Date:2018-06-05P O [phone] () [address] [address]QS: 09/26/2018 Secondary NOT GIVENUNK [place] Insurance:SELF PAY [facility] Number: Effective Repository Date:2018-09-26 09/26/2018 MEREDITH J Primary MEREDITH J [place] MILLERGLENDORA Insurance:CARESOURCE MILLERDOB: [place] [address] Policy Number: [id number] [facility] College Hospital, [id number] [place]ository [place] [address]Vec: (330) Date:2018-06-05 O [phone] () [address]ATTN: [place] [address]IA: 09/26/2018 Secondary NOT GIVENUNK [place] Insurance:SELF PAY [facility] Number: Effective Repository Date:2018-06-05 09/24/2018 MEREDITH J Primary MEREDITH J [place] MILLERGLENDORA Insurance:CARESOURCE MILLERDOB: [place] [address] Policy Number: [id number] [facility] College [facility], [id number] [place]ository [place] [address]Tqk: (330) Date:2018-09-13P O [phone] () [address]ATTN: [place] [address]HB: 09/24/2018 Secondary NOT GIVENUNK [place] Insurance:SELF PAY [facility] Number: Effective Repository Date:2018-09-13 09/06/2018 MEREDITH J Primary MEREDITH J [place] MILLERGLENDORA Insurance:CARESOURCE MILLERDOB: [place] [address] Policy Number: [id number] [facility] College Hospital, [id number] [place]ository [place] [address]Ete: (330) Date:2018-09-06P O [phone] () [address]ATTN: [place] [address]XW: 09/06/2018 Secondary NOT GIVENUNK [place] Insurance:SELF PAY [facility] Number: Effective Repository Date:2018-09-06 08/28/2018 MEREDITH J Primary MEREDITH J [place] MILLERGLENDORA Insurance:CARESOURCE MILLERDOB: [place] [address] Policy Number: [id number] Island College Hospital, [id number] Repository [place] [address]Eit: (330) Date:2018-08-21P O [phone] () [address]ATTN: [place] [address]DI: 08/28/2018 Secondary NOT GIVENUNK [place] Insurance:SELF PAY [facility] Number: Effective Repository Date:2018-08-21 08/06/2018 MEREDITH J Primary MEREDITH J [place] MILLERGLENDORA Insurance:CARESOURCE MILLERDOB: [place] [address] Policy Number: [id number] Island College Hospital, [id number] [place]ository [place] [address]Cmx: (330) Date:2018-07-25P O [phone] () [address]ATTN: [place] [address]UA: 08/06/2018 Secondary NOT GIVENUNK [place] Insurance:SELF PAY [facility] Number: Effective Repository Date:2018-07-25 06/15/2018 MEREDITH J [id number] Primary MEREDITH J [place] [address] Insurance:CARESOURCE MILLERDOB: [address] Policy Number: [id number] Hospital [address]Sjy: (330) [id number] Repository [phone] (HP) Date:2018-06-15P [address]ATTN: [place] [address]KH: 06/15/2018 Secondary NOT GIVENUNK [place] Insurance:SELF PAY [facility] Number: Effective Repository Date:2018-06-15 06/15/2018 MEREDITH J [id number] Primary MEREDITH J [place] [address] Insurance:CARESOLEILANI SCHOFIELDB: [address] Policy Number: [id number] Hospital [address]Dih: 330 [id number] Repository [phone] () Date:2018-06-15P [address]ATTN: [place] [address]WS: 06/15/2018 Secondary NOT GIVENUNK [place] Insurance:SELF PAY [facility] Hospital Number: Effective Repository Date:2018-06-15 06/15/2018 MEREDITH J [id number] Primary MEREDITH J [place] [address] Insurance:NAVNEET SCHOFIELDB: [address] Policy Number: [id number] Hospital [address]Utb: 330 [id number] Repository [phone] () Date:2018-06-15P [address]ATTN: [place] [address]ZK: 06/15/2018 Secondary NOT GIVENUNK [place] Insurance:SELF PAY [facility] Number: Effective Repository Date:2018-06-15 06/15/2018 MEREDITH Davi [id number] Primary MEREDITH J [place] [address] Insurance:NAVNEET SCHOFIELDB: [address] Policy Number: [id number] Hospital [address]Pfr: 330 [id number] Repository [phone] () Date:2018-06-15P [address]ATTN: [place] [address]LU: 06/15/2018 Secondary NOT GIVENUNK [place] Insurance:SELF PAY [facility] Hospital Number: Effective Repository Date:2018-06-15 06/15/2018 MEREDITH J [id number] Primary MEREDITH J [place] [address] Insurance:CARESOLEILANI SCHOFIELDB: [address] Policy Number: [id number] Hospital [address]Ghy: (437) [id number] Repository [phone] () Date:2018-06-15 O [address]ATTN: [place] [address]JF: 06/15/2018 Secondary NOT GIVENUNK [place] Insurance:SELF PAY [facility] Hospital Number: Effective Repository Date:2018-06-15 06/15/2018 MEREDITH J [id number] Primary MEREDITH J [place] [address] Insurance:CARESOLEILANI SCHOFIELDB: [address] Policy Number: [id number] Hospital [address]Yxa: (492) [id number] Repository [phone] () Date:2018-06-15 O [address]ATTN: [place] [address]OQ: 06/15/2018 Secondary NOT GIVENUNK [place] Insurance:SELF PAY [facility] Hospital Number: Effective Repository Date:2018-06-15 06/15/2018 MEREDITH J [id number] Primary MEREDITH J [place] [address] Insurance:ITASOLEILANI SCHOFIELDB: [address] Policy Number: [id number] Hospital [address]Rei: 330 [id number] Repository [phone] () Date:2018-06-15 O [address]ATTN: [place] [address]MN: 06/15/2018 Secondary NOT GIVENUNK [place] Insurance:SELF PAY [facility] Hospital Number: Effective Repository Date:2018-06-15 06/11/2018 MEREDITH J [id number] Primary MEREDITH J [place] [address] Insurance:NAVNEET SCHOFIELDB: [address] Policy Number: [id number] Hospital [address]Mys: (735) [id number] Repository [phone] () Date:2018-06-11 O [address]ATTN: [place] [address]OO: 06/11/2018 Secondary NOT GIVENUNK [place] Insurance:SELF PAY [facility] Hospital Number: Effective Repository Date:2018-06-11 06/05/2018 MEREDITH J [id number] Primary MEREDITH J [place] [address] Insurance:CARESOLEILANI SCHOFIELDB: [address] Policy Number: [id number] Hospital [address]Udk: 330 [id number] Repository [phone] (HP) Date:2018-05-30P [address]ATTN: [facility]S [facility] [place] [place] [address]EU: 06/05/2018 Secondary NOT GIVENUNK [place] Insurance:SELF PAY [facility] Number: Effective Repository Date:2018-06-05 06/04/2018 MEREDITH J [id number] Primary MEREDITH J [place] [address] Insurance:CARESOLEILANI SCHOFIELDB: [address] Policy Number: [id number] Hospital [address]Oui: (610) [id number] Repository [phone] (HP) Date:2018-06-04P [address]ATTN: [place] [address]FH: 06/04/2018 Secondary NOT GIVENUNK [place] Insurance:SELF PAY [facility] Number: Effective Repository Date:2018-06-04 05/17/2018 MEREDITH Davi [id number] Primary MEREDITH J [place] [address] Insurance:CAREGERALDINE SCHOFIELDB: [address] Policy Number: [id number] Hospital [address]Bin: (244) [id number] Repository [phone] (HP) Date:2018-05-17P [address]ATTN: [place] [address]OX: 05/17/2018 Secondary NOT GIVENUNK [place] Insurance:SELF PAY [facility] Hospital Number: Effective Repository Date:2018-05-17 05/15/2018 MEREDITH J [id number] Primary MEREDITH J [place] [address] Insurance:ITALEILANI SCHOFIELDB: [address] Policy Number: [id number] Hospital [address]Gvk: (399) [id number] Repository [phone] () Date:2018-05-01P [address]ATTN: [place] [address]OG: 05/15/2018 Secondary NOT GIVENUNK [place] Insurance:SELF PAY [facility] Number: Effective Repository Date:2018-05-01 12/13/2017 Meredith Lambert Primary Meredith [place] [facility] [id number] Insurance:NAVNEET Grady: [facility], Policy Number: [id number] [address]Lyt: (142) [id number] Repository [phone] () Date:2017-12-13P [address]ATTN: [place] [address]GJ: 12/13/2017 Secondary NOT GIVENUNK [place] Insurance:SELF PAY [facility] Number: Effective Repository Date:2017-12-13
== END ==
PROVIDERS: Family Provider Family Medicine; PCP Family Medicine; Referring Provider Internal Medicine Cardiovascular Disease; Visit Provider Internal Medicine Cardiovascular Disease
DX: E11.9 Type 2 diabetes mellitus without complications (principal); I10 Essential (primary) hypertension; R94.31 Abnormal electrocardiogram [ECG] [EKG]
CPT/HCPCS: 93306

== ENCOUNTER → 2018-10-10 13:23 | Outpatient (CLI) | payer MEDICAID, SELFPAY ==
--- NOTE | 2018-10-10 13:24 | STE_ITS ---
Reason For Study: ABN. EKG Stress Results Protocol: Dobutamine Protocol Maximum Predicted HR: 160 bpm Target HR: 136 bpm % Maximum Predicted HR: 85 % Heart Stage Duration Rate BP Dose Comment (mm:ss) (bpm) BASELINE 78 163/80 STAGE 1 3:00 86 145/6610.00 STAGE 2 3:00 108 128/6720.00 STAGE 3 3:00 117 115/5830.00 0.25MG ATROPINE, BECAME VERY ANXIOUS AND RESTLESS IN THE BED. STAGE 4 4:55 136 .00NO CHEST PAIN RECOVERY 99 119/65 Stress Duration: 13:55 mm:ss Maximum Stress HR: 136 bpm Baseline Echocardiogram Findings The estimated ejection fraction is 65 %. Stress Echo Wall motion Data Resting WM Intermediate WM Stress WM Resting Wall Motion Wall Motion Stress No regional wall motion No regional wall motion abnormalities noted. abnormalities noted. EKG Data Normal intervals are noted. The patient was titrated from 10 mcg to a maximum of 40 mcg of dobutamine during the stress. The maximum heart rate attained was 136 beats per minute. This was 85% of maximum predicted heart rate. During dobutamine infusion, there were no ST or T wave changes noted to suggest ischemia. No arrhythmias noted. No clinical angina was noted. Interpretation Summary The estimated ejection fraction is 65 %. Normal, adequate, dobutamine echocardiogram. Negative for ischemia by EKG and echocardiographic criteria. No anginal symptoms noted. No arrhythmias noted. Appropriate blood pressure response to dobutamine. Patient developed a 121 mm intracavitary gradient at peak infusion. Test terminated due to the attainment of target heart rate. Final LVEF is 75%. No complications. Ordering Physician: Luis Castañeda Referring Physician: Luis Castañeda Performed By: Chrissie Jane, GEREMIAS, RVT
--- OUTSIDE RECORDS SUMMARY | 2018-11-26 17:17 | XMS RPT_ITS ---
:1960 Author Organization OHIP Support Name Relationship Address Phone Cadence Matthew Nicci Unavailable [address] + [place] [address] D Unavailable Unavailable Unavailable CADENCE POA, NICCI Unavailable [address] + [place] [address] D Unavailable Unavailable Unavailable CADENCE POA, NICCI Unavailable [address] + [place] [address] D Unavailable Unavailable Unavailable CADENCE POA, NICCI Unavailable [address] + [place] [address] D Unavailable Unavailable Unavailable CADENCE POA, NICCI Unavailable [address] + [place] [address] D Unavailable Unavailable Unavailable CADENCE POA, NICCI Unavailable [address] + [place] [address] D Unavailable Unavailable Unavailable CADENCE POA, NICCI Unavailable [address] + [place] [address] D Unavailable Unavailable Unavailable CADENCE POA, NICCI Unavailable [address] + [place] [address] D Unavailable Unavailable Unavailable CADENCE POA, NICCI Unavailable [address] + [place] [address] D Unavailable Unavailable Unavailable CADENCE POA, NICCI Unavailable [address] + [place] [address] D Unavailable Unavailable Unavailable ACDENCE POA, NICCI Unavailable [address] + [place] [address] D Unavailable Unavailable Unavailable CADENCE POA, NICCI Unavailable [address] + [place] [address] D Unavailable Unavailable Unavailable CADENCE POA, NICCI Unavailable [address] + [place] [address] D Unavailable Unavailable Unavailable CADENCE POA, NICCI Unavailable [address] + [place] [address] D Unavailable Unavailable Unavailable CADENCE POA, NICCI Unavailable [address] + [place] [address] D Unavailable Unavailable Unavailable CADENCE POA, NICCI Unavailable [address] + [place] [address] D Unavailable Unavailable Unavailable CADENCE POA, NICCI Unavailable [address] + [place] [address] D Unavailable Unavailable Unavailable CADENCE POA, NICCI Unavailable [address] + [place] [address] D Unavailable Unavailable Unavailable CADENCE, NICCI Unavailable Unavailable + D Unavailable Unavailable Unavailable [...] [address] + [place] [address] D Unavailable Unavailable Unavailable LEROY, ROMULO Unavailable [address] + [place] [address] D Unavailable Unavailable Unavailable LEROY, ROMULO Unavailable [address] + [place] [address] D Unavailable Unavailable Unavailable LEROY, ROMULO Unavailable [address] + [place] [address] D Unavailable Unavailable Unavailable ROMULO HARPER Unavailable [address] + [place] [address] ELISSA KRAUSE Unavailable [address] + [place] [address] UE Unavailable Unavailable Unavailable MEENA LONG Unavailable [address] + [place] [address] Care Team Providers Name Role Phone Michelle Arreola Attending Unavailable Wunning, Jose Angel Referring Unavailable Moore, Tariq Primary Care Unavailable Galo, Froilan Chi Consulting Unavailable Wunning, Jose Angel Consulting Unavailable Koram, Maritza Consuelo Attending Unavailable Wunning, Jose Angel Referring Unavailable Moore, Tariq Primary Care Unavailable Galo, Froilan Chi Consulting Unavailable Koram, Maritza Consuelo Consulting Unavailable Luis Castañeda Attending Unavailable Luis Castañeda Referring Unavailable Wunning, Jose Angel Admitting Unavailable Koram, Maritza Consuelo Attending Unavailable Wunning, Jose Angel Referring Unavailable Moore, Tariq Primary Care Unavailable Galo, Froilan Chi Consulting Unavailable Wunning, Jose Angel Consulting Unavailable Wunning, Jose Angel Admitting Unavailable Koram, Maritza Consuelo Attending Unavailable Wunning, Jose Angel Referring Unavailable Moore, Tariq Primary Care Unavailable Galo, Froilan Chi Consulting Unavailable Wunning, Jose Angel Consulting Unavailable Wunning, Jose Angel Admitting Unavailable Koram, Maritza Consuelo Attending Unavailable Wunning, Jose Angel Referring Unavailable Moore, Tariq Primary Care Unavailable Galo, Froilan Chi Consulting Unavailable Wunning, Jose Angel Consulting Unavailable Galo, Froilan Chi Attending Unavailable Wunning, Jose Angel Attending Unavailable Wunning, Jose Angel Referring Unavailable Galo, Froilan Chi Primary Care Unavailable Wunning, Jose Angel Attending Unavailable Wunning, Jose Angel Referring Unavailable Galo, Froilan Chi Primary Care Unavailable Wunning, Jose Angel Admitting Unavailable Koram, Maritza Consuelo Attending Unavailable Wunning, Jose Angel Referring Unavailable Moore, Tariq Primary Care Unavailable Galo, Froilan Chi Consulting Unavailable Wunning, Jose Angel Consulting Unavailable Wunning, Jose Angel Admitting Unavailable Koram, Maritza Consuelo Attending Unavailable Wunning, Jose Angel Referring Unavailable Moore, Tariq Primary Care Unavailable Galo, Froilan Chi Consulting Unavailable Wunning, Jose Angel Consulting Unavailable Wunning, Jose Angel Admitting Unavailable Maritza Mays Attending Unavailable Arturnnjannette, Jose Angel Referring Unavailable Moore, Tariq Primary Care Unavailable Galo, Froilan Chi Consulting Unavailable Ti, Jose Angel Consulting Unavailable Tariq Whitaker Attending Unavailable Ti, Jose Angel Referring Unavailable Jah, Tariq Attending Unavailable Marta Santos Attending Unavailable Luis Castañeda Attending Unavailable Galo, Froilan Chi Referring Unavailable Galo, Froilan Chi Primary Care Unavailable Galo, Froilan Chi Primary Care Unavailable Erika Jara Attending Unavailable Southern Erika Referring Unavailable Noe, Ferdinand Admitting Unavailable Noe, Ferdinand Referring Unavailable Galo, Froilan Chi Primary Care Unavailable Wunning, Jose Angel Consulting Unavailable Paintsil, Belpre Attending Unavailable Ej, Joey Consulting Unavailable [facility], Ferdinand Admitting Unavailable Noe, Ferdinand Attending Unavailable Noe, Ferdinand Referring Unavailable Galo, Froilan Chi Primary Care Unavailable Wunning, Jose Angel Consulting Unavailable [facility], Ferdinand Consulting Unavailable [facility], Ferdinand Admitting Unavailable [facility], Ferdinand Attending Unavailable [facility], Ferdinand Referring Unavailable Galo, Froilan Chi Primary Care Unavailable Wunning, Jose Angel Consulting Unavailable [facility], Ferdinand Consulting Unavailable Noe, Ferdinand Admitting Unavailable [facility], Ferdinand Attending Unavailable Noe, Ferdinand Referring Unavailable Galo, Froilan Chi Primary Care Unavailable Wunning, Jose Angel Consulting Unavailable Noe, Ferdinand Consulting Unavailable Noe, Ferdinand Admitting Unavailable JoDami greco Attending Unavailable [facility], Ferdinand Referring Unavailable Galo, Froilan Chi Primary Care Unavailable Wunning, Jose Angel Consulting Unavailable Ej, Joey Consulting Unavailable Jopprani Dami Consulting Unavailable [facility], Ferdinand Admitting Unavailable Paintsil, Belpre Attending Unavailable [facility], Ferdinand Referring Unavailable Galo, Froilan Chi Primary Care Unavailable Wunning, Jose Angel Consulting Unavailable Ej, Joey Consulting Unavailable Paintsil, Belpre Consulting Unavailable Noe, Ferdinand Admitting Unavailable Paintsil, Belpre Attending Unavailable Noe, Ferdinand Referring Unavailable Galo, Froilan Chi Primary Care Unavailable Wunning, Jose Angel Consulting Unavailable Ej, Joey Consulting Unavailable Paintsil, Belpre Consulting Unavailable Jose Angel Luke Attending Unavailable Arturnning, Jose Angel Referring Unavailable Galo, Froilan Chi Primary Care Unavailable Jose Angel Luke Attending Unavailable Arturnning, Jose Angel Referring Unavailable Galo, Froilan Chi Primary Care Unavailable Wunning, Jose Angel Attending Unavailable Galo, Froilan Chi Primary Care Unavailable Wunning, Jose Angel Attending Unavailable Wunning, Jose Angel Referring Unavailable Moore, Tariq Primary Care Unavailable Galo, Froilan Chi Consulting Unavailable Castañeda, Luis Attending Unavailable Castañeda, Luis Referring Unavailable Moore, Tariq Primary Care Unavailable Galo, Froilan Chi Consulting Unavailable Castañeda, Luis Attending Unavailable Castañeda, Luis Referring Unavailable Moore, Tariq Primary Care Unavailable Galo, Froilan Chi Consulting Unavailable Castañeda, Luis Consulting Unavailable Castañeda, Luis Attending Unavailable Castañeda, Luis Referring Unavailable Moore, Tariq Primary Care Unavailable Wunning, Jose Angel Attending Unavailable Wunning, Jose Angel Referring Unavailable Moore, Tariq Primary Care Unavailable Galo, Froilan Chi Consulting Unavailable Arturnnjannette, Jose Angel Admitting Unavailable PROBLEMS PROBLEMS DATE TYPE CONDITION / CODE ATTENDING STATUS SOURCE 11/14/2018 Unknown R94.31 - Abnormal [place], Active [place] electrocardiogram [facility] [ECG] [EKG] / Hospital R94.31(ICD-10) Repository 11/05/2018 Unknown M14.672 - Charcot's Wunning, Active [place] joint, left ankle and [facility] foot / M14.672(ICD-10) Hospital Repository 09/26/2018 Unknown I10 - Essential Luis Castañeda Active [place] (primary) hypertension [facility] / I10(ICD-10) Hospital Repository 09/26/2018 Unknown E11.9 - Type 2 Luis Castañeda Active [place] diabetes mellitus [facility] without complications Hospital / E11.9(ICD-10) Repository 06/05/2018 Unknown E78.5 - Luis Castañeda Active [place] Hyperlipidemia, Community unspecified / Hospital E78.5(ICD-10) Repository 01/19/2018 Unknown E55.9 - Vitamin D Galo, Froilan Chi Active [place] deficiency, Community unspecified / Hospital E55.9(ICD-10) Repository PROCEDURES PROCEDURES No Procedure Records FoundRESULTS RESULTS AMMONIA Collected: 11/20/2018 Status: F Source: [place] 11:40 AM [facility] REPOSITORY TYPE CODE TESTS RESULT OUT OF REFERENCE UNITS RANGE LAB L503.5510 11-32 umol/L High AMMONIA 91.0 Performed By: #### L503.5510 #### [facility] [address] [place], [address] OPERATIVE REPORT Observed: 11/17/2018 Status: F Source: [place] 5:00 PM [facility] REPOSITORY [facility] Medical Records Department [address] [place] [address] Operative Report 10/29/18 1813 MR#: [id number] Acct: [id number] Name: VITOR ALBERTO Rep #: [id number] : 1960 58 From: Jose Angel Luke DPM PCP: Tariq Moore MD Status: DIS IN Y [place] [facility] [id number] Report of Operation Date of Procedure: 10/29/18 Pre-Operative Diagnosis: Charcot neuroarthropathy left ankle and hindfoot Post-Operative Diagnosis: Same Surgery/Procedure Performed:: Tibiotalocalcaneal arthrodesis and talonavicular arthrodesis, left 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 Douglas Rollins Type of Anesthesia:: General Specimen's removed: Bone from the left ankle/subtalar/talonavicular joints sent to pathology and microbiology Estimated Blood Loss (mL): 40mL Description of Procedure: Operative procedure: The patient was brought back into the operating room and was placed on the operating room in the prone position after the patient received general anesthesia per the anesthesia team. We were sure to pad and protect all jimmy prominences and all important areas on the patient.The patient was secured to the operating room table with a safety belt around her waist. The patient received 1 gram of IV Vancomycin for antibiotic prophylaxis. A well padded pneumatic tourniquet was applied around patient's left thigh. The patient received general anesthesia per the anesthesia team. The left lower extremity was scrubbed, prepped, and draped in the usual aseptic fashion. A timeout was performed and the patient was properly identified and the surgical plan was confirmed. A Jamshidi needle was placed percutaneously to the lateral wall of the body of the calcaneus and a total of 80mL of bone marrow aspirate was obtained, redirecting several times. The aspirated bone marrow aspirate was passed from the surgical field and was concentrated down to 5mL. The concentrated bone marrow aspirate was mixed with bone allograft for later packing into the arthrodesis sites. The left foot was elevated for 3 minutes and the left thigh pneumatic tourniquet was inflated to 300mmHg. Further attention was directed to the ankle. There was gross instability to the ankle, subtalar and talonavicular joints. There is increase talar tilt and positive anterior drawer sign to the ankle. The ankle and hiindfoot were very floppy. Using a 15 scalpel blade an incision was made overlying the posterior subtalar and ankle joints, posterior to the Achilles tendon. Careful dissection was completed down to the Achilles tendon. The Achilles tendon was incised longitudinally down the middle. Blunt direction was completed down to the posterior subtalar joint and ankle joint capsules, the medial neurovascular bundle was protected out of the away medially. The flexor hallucis longus tendon and muscle belly were identified and reflected medially as well. The posterior ankle joint and subtalar joint capsules were visualized. There was noted to be hypertrophy and thickening of the ankle joint capsule. The capsules were incised using a 15 scalpel blade and reflected from the posterior aspect, exposing the joint surfaces. There was noted to be significant degenerative Charcot changes of the ankle and subtalar joints. Cartilage was significantly worn, nonviable, and degenerative. There was noted to be bone fragmentation present. There was no purulence or evidence of abscess present. There is no gross necrosis present. All of the nonviable/unhealthy tissue was debrided out from the ankle and subtalar joints. A specimen of this tissue was sent to pathology. All of the cartilage of the ankle and subtalar joints were debrided and removed from the bone ends, this was completed down to healthy viable bleeding bone. This was completed using curettes, bone cutting rongeurs, as well as a bone bur being sure not to create osteonecrosis. The site was flushed out with copious amounts of normal saline solution. The ankle joint and the subtalar joint surfaces were drilled / fenestrated with a 2.4mm drill multiple times, also they were prepped with an small osteotome to enhance and aid vascularity and fusion to the arthrodesis sites. The arthrodesis surfaces of the ankle and subtalar joints were coated with [employer] graft to also aid the healing of the arthrodesis. Due to the significant Charcot changes which was debrided out, there was a residual void to the ankle fusion site. The site was packed with cancellous bone allograft mixed with concentrated bone marrow aspirate. Also the subtalar joint was packed with the cancellous bone allograft as well to aid fusion. The foot and ankle were placed at 90 degrees to the leg, and the heel in very slight valgus, and the prepped ankle and subtalar joints surfaces were brought together. They were fixated using rigid open reduction internal fixation technique. First one 6.5mm partially threaded [employer] screw which was placed from the posterior plantar calcaneus going up through the subtalar and ankle arthrodesis sites to the anterior tibia. A washer was used on the screw head, as the patient's bone was soft. There was excellent bite and compression across the arthrodesis sites. One [employer] posterior TTC locking plate with a total of nine 4.5mm locking screws and one 4.5mm nonlocking cortical screw were used to secure the plate across the arthrodesis sites. The calcaneal screws were placed first, and then the proximal cortical screw was placed eccentrically to allow for further compression across the arthrodesis sites. The rest of the screws were placed. There was excellent stability present with good alignment present. Based on the screw lengths available for the plate, the longer option were used proximally to ensure good purchase, stability and fixation into the plate and bone. Alignment and placement were confirmed using intra operative fluoroscopy. The ankle and subtalar joints were rigidly fixated, very stable, and in good alignment with excellent bone compression across the sites. The talus noted to be under the tibial, and clinically the foot was plantigrade with neutral flexion, heel in slight valgus position. The surgical site was flushed out with copious amounts of normal saline solution. The left thigh pneumatic tourniquet was deflated (125 minutes total) and there was immediate return of warmth and perfusion. CFT < 2 seconds to all toes, and normal temperature present. Pedal pulses were intact. Hemostasis was achieved prior to closure. The joint capsules and deep fascia layer were reapproximated using 2-0 Vicryl, the sides of the Achilles tendon were brought together and reapproximated using 2-0 Vicryl, the subcutaneous tissue layer was reapproximated using 3-0 Vicryl. The skin was reapproximated using 3-0 Nylon. A temporary dressing of gauze and coban was applied. There was noted to be continued gross instability and break down of the talonavicular joint. Therefore the patient was carefully placed into the supine position. The surgeons rescrubbed, and the patient's left lower extremity was rescrubbed, prepped and draped in the usual aseptic fashion. The left foot was again elevated and the left thigh pneumatic tourniquet was inflated to 300mmHg. A skin incision was made to the anterior ankle and dorsal hindfoot/midfoot using a 15 scalpel blade. This was made between the anterior tibial tendon and the extensor hallucis longus tendon. Careful dissection was completed down through the subcutaneous tissue layer and extensor retinaculum. The ankle joint capsule and talonavicular capsule were visualized and incised using a15 scalpel blade. The capsules were incised and partially reflected. The ankle had already been prepped and had already been fixated as noted above. It was confirmed to properly prepped and in good position. There was noted to be a void to the talonavicular joint due to significant Charcot changes, the talar head was absent as there had been significant nonviable tissue with fragmentation of the bone ends, and significant wearing away of the cartilage. The nonviable tissue was debrided and all cartilage removed. The debrided tissue was sent to pathology and microbiology with the specimen from the ankle and subtalar joint debrided tissue. The site was packed with the cancellous bone allograft. The bone ends were brought together and the foot was placed at 90 degrees to the leg. The prepped talonavicular arthrodesis site was fixated using rigid open reduction internal fixation technique, 1 [employer] locking fibular plate which was bent to conform to the site, and was fixated with 2 nonlocking screws and the rest locking screws. There was excellent stability present with good alignment present. Alignment and placement were confirmed using intra operative fluoroscopy. The ankle, subtalar, and talonavicular joint arthrodesis sites were all rigidly fixated, very stable, and in good alignment with excellent bone compression across the sites Hardware was intact, in good position and very stable holding proper alignment of the foot/ankle. The foot was plantigrade with neutral flexion, heel in slight valgus position. he left thigh pneumatic tourniquet was deflated (75 minutes total) and there was immediate return of warmth and perfusion. CFT < 2 seconds to all toes, and normal temperature present. Pedal pulses were intact. Hemostasis was achieved prior to closure. The joint capsules and deep fascia layer were reapproximated using 2-0 Vicryl, the sides of the Achilles tendon were brought together and reapproximated using 2-0 Vicryl, the subcutaneous tissue layer was reapproximated using 3-0 Vicryl. The skin was reapproximated using 3-0 Nylon. A dressing was applied which consisted of Betadine soaked Adaptic, 4x4 gauze, Kerlix, abd pads and berenice bandages. The patient received a leftlower extremity popliteal block by Dr. Ribeiro (from the anesthesia team) at the end of the procedure. The patient tolerated the procedure and the anesthesia well with no complications. The patient was transported from the operating room to the recovery room with vital signs stable and in good condition. The patient will be admitted for post operative pain control and observation. I spoke with the hospitalist, who agreed with admission. Post operative orders were placed. Post operative xrays of the foot (3 views), ankle (3 views) were obtained in the recovery room which were reviewed; they confirmed TTC and talonavicular arthrodesis in good alignment, good bone to bone contact, with stable fixation across the arthrodesis sites, no complications seen. The patient will be admitted for post operative pain control and monitoring. She will be followed as an inpatient. Grafts/Implants Used: 1 TTC [employer] plate, 1 [employer] fibular plate and screws - Complications None 11/17/18 1700 <Electronically signed by Jose Angel Luke DPM> Date Jose Angel Luke DPM CC: Michelle Arreola; Jose Angel Luke DPM; Tariq Moore MD Signed DISCHARGE SUMMARY Observed: 11/05/2018 Status: F Source: [place] 1:24 PM [facility] REPOSITORY [facility] Medical Records Department [address] [place] [address] Discharge Summary 11/05/18 1233 MR#: [id number] Acct: [id number] Name: VITOR ALBERTO Rep #: [id number] : 1960 58 From: Maritza Mays MD PCP: Tariq Moore MD Status: ADM IN Y Location: [facility] [id number] ADDENDUM by Maritza Mays MD on 11/05/18 at 1323 Code Visit Of note, patient hypotensive during admission and also developed AK I. Blood pressure medications were therefore held and AK I resolved with initiation of IV fluid. However blood pressure remained well controlled yoder of blood pressure medications. Therefore on discharge, blood pressure meds well. She is follow-up with her primary care doctor for medications to be resumed as needed based on her blood pressure. 11/05/18 1324 <Electronically signed by Maritza Mays MD> Date Maritza Mays MD cc: Maritza Mays MD; Tariq Moore MD * Signed Discharge Date and Diagnosis Date of Admission: 10/29/18 Date of Discharge: 11/05/18 - Secondary Discharge Diagnosis Chronic Problems (Last [...] Peripheral neuropathy (Chronic) Tobacco use disorder (Chronic) Obesity (Chronic) Hospital Course and Treatment Imaging Results: Diagnostic Data Ankle X-Ray 10/29/18 18:45 IMPRESSION: Anatomic alignment status post arthrodesis of the tibiotalar joint. Avascular necrosis of the talus. Narrowing of the tibiotalar and subtalar joints. Additional chronic findings are detailed above. Electronically Signed: Wanda Amato MD at 20:52 EST Tel , Service support , Foot X-Ray 10/29/18 18:45 IMPRESSION: 1. Documentation of surgical arthrodesis of the tibiotalar articulation as well as several the articulations of the hindfoot. 2. Osteoporosis. 3. Status post amputations of the phalanges of the fourth and fifth toes, most of the fourth metatarsal and the entire fifth metatarsal. Electronically Signed: Ksenia Alberto MD at 2:04 EST , Service support , Liver Ultrasound 10/31/18 12:25 IMPRESSION: Mild ascites. Mild coarse echotexture of the liver. Mild biliary prominence. Electronically Signed: Case Liu DO at 0:04 EST Tel [phone], Service support , hospitalist Operations: - - left tibiocalcaneal and talonavicular arthrodesis Procedures: None Summary of Care Provided: Patient is a 58 y/o female with a history of diabetes mellitus, hypertension, depression and peripheral neuropathy and chronic pain as well as anxiety. She had also had a previous left fourth and fifth ray amputation secondary to necrotizing fasciitis in 2016. She was admitted for surgery on her left foot and ankle due to Charcot arthropathy and was subsequently admitted for postoperative pain management. She had injured her left ankle last summer at the [facility] and walked on the fracture for a few weeks because she had no pain on account of her neuropathy. Initial management was conservative a patient was nonadherent with staying off her foot and immobilization and subsequently developed a nonhealing Charcot neuroarthropathy with significant instability and breakdown of the foot and ankle. She underwent a tibial talocalcaneal arthrodesis as well as talonavicular arthrodesis. Post operatively, pain remained well controlled. However, post op course was complicated by worsening acute metabolic encephalopathy which was initially thought to be due to opiates. However, times persisted even after opiates were stopped. Liver enzymes check showed elevated ammonia level and elevated bilirubin which trended up and peaked at about 2.5. Patient was therefore started on lactulose for acute hepatic encephalopathy. Liver ultrasound done showed coarse echo texture of the liver. Hepatitis panel was negative. Lipid panel was also not elevated. Because of liver pathology was not clear at time of discharge. Patient's confusion resolved with administration of lactulose. She remained stable and was discharged to a correction on 11/05/2018. 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 She was also referred to follow-up with operations representative on account of the liver pathology. OA RRS was checked and no red flags were seen. Patient was given a prescription for p.o. OxyContin 10mg twice daily for 10 tablets in total and no refills. She was also given a prescription for p.o. oxycodone 5 mg every 6 hours as needed for total of 20 pills. Per podiatry, She is to continue with subcu Lovenox 40 mg daily for another week to give a total of 2 weeks of DVT prophylaxis post surgery. Patient seen and examined prior to discharge. No complaints and felt well. She denied any fever or chills, any cough or chest pain, any shortness of breath, any abdominal pain, any diarrhea or vomiting. 12 point review of systems is otherwise negative. Labs and vitals reviewed. Home medications reviewed and reconciled. o/e: Vital Signs Height 5 ft 4 in Weight: 189 lb 0.001 oz Weight in Pounds 189.0 lbs Pulse Ox 99 General: Alert, Oriented x3, Cooperative, No apparent distress HEENT: Atraumatic, PERRLA, EOMI, Normocephalic Oral: Moist Mucosa Neck: Supple, No JVD, Negative Carotid Bruits Lungs: Clear to auscultation, Normal air movement, No rhonchi, No wheeze, No rales Cardiovascular: Regular rate, Regular Rhythm, Normal S1, Normal S2, No murmurs Abdomen: Bowel Sounds Present, Soft, Non Tender, Non-Distended, No Hepato-splenomegaly Extremities: No clubbing, No cyanosis, No edema, Capillary Refill Less than 3 Seconds, - - LLE bandaged Skin: No rashes, No breakdown Musculoskeletal: No Tenderness to Palpation of Joints or Extremities Lymphatic: No Cervical, Supraclavicular, or Inguinal Adenopathy Neurological: Cranial nerves II-XII grossly intact, Neuro grossly intact Psych/Mental Status: Normal Affect, Appropriate, Alert and oriented to time, place, person, mood and affect Plan as described above [] - Physical Exam Vital Signs Temp Pulse Resp BP Pulse Ox 98.5 F 87 18 101/52 L 99 11/05/18 08:48 11/05/18 08:48 11/05/18 08:48 11/05/18 08:48 11/05/18 08:48 Oxygen Flow Rate (L/min) 3 Oxygen Delivery Method Room Air Weight: 189 lb 0.001 oz Body Mass Index (BMI) 32.4 Finger Stick Blood Glucose 197 Intake and Output for Last 24 Hours Intake Total 2711 / 2711 1090 / 1090 300 / 300 Output Total 2125 / 2125 1875 / 1875 Balance 586 / 586 -785 / -785 300 / 300 Microbiology Past 72 Hours 10/29/18 18:32 Gram Stain - Final Bone - Ankle Wound Culture - Final POC Glucose POC Glucose 163 H 160 H 96 POC Glucose 166 H 193 H Discharge Diet: Low fat/ Low Cholesterol Discharge Activity: - - nonweight bearing on LLE Weight Bearing Status: No weight bearing - on LLE Call your doctor if you observe: Fever of 101 or Higher, Coldness, Increased Pain Home Medications: Medications to take at Discharge Omeprazole 20 mg PO DAILY 12/16/16 Docusate Sodium [Colace] 100 mg PO PRN PRN 07/23/17 atorvastatin 40 mg tablet 40 mg PO QHS 06/04/18 proMETHazine tablet [Phenergan tablet] 25 mg PO Q6H PRN PRN 06/11/18 Ergocalciferol [Vitamin D] 50,000 unit PO Q7D #7 capsule 06/20/18 Gabapentin [Neurontin] 300 mg PO TID 08/24/18 Insulin Glargine [Lantus SoloStar Pen] 40 units SC QHS 08/24/18 Insulin Lispro [Humalog KwikPen] 10 unit SC TIDCM 08/24/18 Melatonin [Melatin] 3 mg PO QHS 08/24/18 Oxycodone [Oxyir] 5 mg PO Q6H 08/24/18 Bisacodyl [Dulcolax] 10 mg RECTAL PRN PRN 10/16/18 Duloxetine Hcl [Cymbalta] 60 mg PO DAILY 10/16/18 Ibuprofen [Motrin] 400 mg PO DAILY PRN PRN 10/16/18 Insulin Lispro [Humalog KwikPen] See Protocol SQ TIDCM 10/16/18 Lactobacillus Acidophilus [Acidophilus] 1 tablet PO BID 10/16/18 Loperamide [Imodium] 2 mg PO PRN PRN 10/16/18 Lorazepam [Ativan] 0.5 mg PO QHS 10/16/18 Magnesium Hydroxide [Milk Of Magnesia] 30 ml PO DAILY PRN PRN 10/16/18 Mineral Oil 118 ml RC PRN PRN 10/16/18 Multivitamins,Ther W-Minerals [Multivitamin With Minerals] 1 tablet PO DAILY 10/16/18 Enoxaparin [Lovenox] 40 mg SC DAILY@0600 #7 syringe 11/05/18 Lactulose 10 gm PO BID #30 ml 11/05/18 Oxycodone HCl [Oxycontin] 10 mg PO BID 5 Days #10 tab.er.12h 11/05/18 Oxycodone [Oxyir] 10 mg PO Q6H PRN PRN #20 tab 11/05/18 Following Prescrptions Were Given to Patient: Oxycodone [Oxyir] 10 mg PO Q6H PRN PRN #20 tab PRN Reason: Severe Pain (-08/08) Enoxaparin [Lovenox] 40 mg SC DAILY@0600 #7 syringe Lactulose 10 gm PO BID #30 ml Oxycodone HCl [Oxycontin] 10 mg PO BID 5 Days #10 tab.er.12h Other Amb Orders: 12 Lead EKG [[facility]] Time Frame: 10/29/18, Location: None Selected Primary Care Physician: Tariq Moore MD [Primary Care Provider] - Please follow up with your Primary Care Physician in: one week Please Follow Up With: Eliazar Pérez MD When: 1-2 weeks Please Follow Up With: Jose Angel Luke DPM When: 1 week;has appointment on Monday11/09/18 [facility]position[facility] Minutes spent on discharge:: 40 Patient Condition:: Stable Medical Necessity - Tobacco Use Smoking Status: Current every day smoker Tobacco Use: Cigarettes Meaningful Use Info Meaningful Use Diagnoses (Choose all that apply): None applicable Code Visit Inpatient E AND M: 30944 Disch Hosp 11/05/18 1320 <Electronically signed by Maritza Mays MD> Date Maritza Mays MD Cosigner Signature (if applicable): Date CC: Maritza Mays MD; Tariq Moore MD Signed TRANSFER TO EXTENDED Observed: 11/05/2018 Status: F Source: [facility] 1:14 PM [facility] REPOSITORY [facility] Medical Records Department [address] [place] [address] Transfer to Extended Care MR#: [id number] Acct: [id number] Name: REMYVITOR Davi Rep #: [id number] : 1960 58 From: Maritza Mays MD PCP: Tariq Moore MD Status: ADM IN [facility] (Patient) (Health Ins. Claim No.) (Day of Discharge to Facility) Certification of patient admission REQUIRED AT TIME OF ADMISSION. I CERTIFY THAT POST-HOSPITAL ECF SERVICES ARE REQUIRED TO BE GIVEN ON AN IN-PATIENT BASIS BECAUSE OF THE ABOVE NAMED PATIENT'S NEED FOR LONG-TERM CARE ON A CONTINUING BASIS FOR THE CONDITION(S) FOR WHICH HE/SHE WAS RECEIVING IN-PATIENT HOSPITAL SERVICES PRIOR TO HIS/HER TRANSFER TO THE ECF. 11/05/18 1231 <Electronically signed by Maritza Mays MD> Date Maritza Mays MD ADDENDUM by Maritza Mays MD on 11/05/18 at 1314 Code Visit Has appointment to follow up with Dr Luke (podiatry) on Monday11/09/18. She is to be nonweight bearing on the Left lower extremity and to keep dressing clean and dry. 11/05/18 1314 <Electronically signed by Maritza Mays MD> Date Maritza Mays MD cc: Tariq Moore MD; Froilan Rosenthal MD * Signed - Diet 10/29/18 20:13 ADA [Diet: Calorie Controlled] Type of Dietary Supplement:: Martha (Harmon) Is pt able to select menu?: Yes How many daily calories?: 1800 calorie - Routine Orders/Code Status Enema Type: Fleetz Enema Frequency: Daily PRN Suppository Type: Dulcolax 10mg Suppository Frequency: Daily PRN O2 Frequency: PRN Keep PO Greater than or Equal to (%): 92 - Wound(s) LT FOOT Wound Type: Surgical Incision Dressing Change: Dry Sterile Dressing - Therapies Weight Bearing: Non weight bearing - of LLE Physical Therapy: Eval and Treat Occupational Therapy: Eval and Treat - Allergies/Procedures Done in Hospital Allergies/Adverse Reactions: Allergies clindamycin [From Cleocin] Allergy (Verified 10/16/18 11:15) Itching Sulfa (Sulfonamide Antibiotics) Allergy (Verified 10/16/18 11:15) Itching ondansetron [From Zofran (as hydrochloride)] Adverse Reaction (Verified 10/16/18 11:15) Nausea - Type of Care/Length of Stay Estimated LOS: Convalescent Care Less Than 30 days Type of Care Needed: Skilled Rehab Potential: Good Prognosis: Good - Additional Orders/Day of Discharge Day of Discharge: 11/05/18 - Dietary and Speech Recommendations Dietitian Recommendations/Changes: Will d/c for Glucerna shake 120 cc 4x/day w/ medpass d/t hx poor po intake and offer ensure pudding or magic cup w/ meals instead. Please order Martha bid from pharmacy to help w/ healing - not dietary. Rec diet change to 1800 stephanie Cardiac / low sodium - Follow Up Care Primary Care Physician: Tariq Moore MD [Primary Care Provider] - Please follow up with your Primary Care Physician in: one week Please Follow Up With: Eliazar Pérez MD When: 1-2 weeks 11/05/18 1231 <Electronically signed by Maritza Mays MD> Date Maritza Mays MD CC: Tariq Moore MD; Froilan Rosenthal MD Signed BEDSIDE GLUCOSE Collected: 11/05/2018 Status: F Source: [facility] 11:16 AM [facility] REPOSITORY TYPE CODE TESTS RESULT OUT OF REFERENCE UNITS RANGE LAB L501.080 70-110 mg/dL High BEDSIDE GLU 163 Result Comment: MANAGEMENT OF PATIENT CARE PER NURSING PROTOCOL Performed By: #### L501.080 #### [facility] Point of Care [address] [place] [address] BEDSIDE GLUCOSE Collected: 11/05/2018 Status: F Source: [place] 8:51 AM [facility] REPOSITORY TYPE CODE TESTS RESULT OUT OF REFERENCE UNITS RANGE LAB L501.080 70-110 mg/dL High BEDSIDE GLU 160 Result Comment: MANAGEMENT OF PATIENT CARE PER NURSING PROTOCOL Performed By: #### L501.080 #### [facility] Point of Care [address] [place] [address] BEDSIDE GLUCOSE Collected: 11/05/2018 Status: F Source: [place] 7:04 AM [facility] REPOSITORY TYPE CODE TESTS RESULT OUT OF RANGE REFERENCE UNITS LAB L501.080 70-110 mg/dL Normal BEDSIDE GLU 96 Result Comment: MANAGEMENT OF PATIENT CARE PER NURSING PROTOCOL Performed By: #### L501.080 #### [facility] Point of Care [address] [place] [address] BEDSIDE GLUCOSE Collected: 11/04/2018 Status: F Source: [place] 9:11 PM [facility] REPOSITORY TYPE CODE TESTS RESULT OUT OF REFERENCE UNITS RANGE LAB L501.080 70-110 mg/dL High BEDSIDE GLU 166 Result Comment: MANAGEMENT OF PATIENT CARE PER NURSING PROTOCOL Performed By: #### L501.080 #### [facility] Point of Care [address] [place] [address] BEDSIDE GLUCOSE Collected: 11/04/2018 Status: F Source: [place] 4:20 PM [facility] REPOSITORY TYPE CODE TESTS RESULT OUT OF REFERENCE UNITS RANGE LAB L501.080 70-110 mg/dL High BEDSIDE GLU 193 Result Comment: MANAGEMENT OF PATIENT CARE PER NURSING PROTOCOL Performed By: #### L501.080 #### [facility] Point of Care [address] [place] [address] BEDSIDE GLUCOSE Collected: 11/04/2018 Status: F Source: [place] 11:48 AM [facility] REPOSITORY TYPE CODE TESTS RESULT OUT OF REFERENCE UNITS RANGE LAB L501.080 70-110 mg/dL High BEDSIDE GLU 143 Result Comment: MANAGEMENT OF PATIENT CARE PER NURSING PROTOCOL Performed By: #### L501.080 #### [facility] Point of Care [address] [place] [address] BEDSIDE GLUCOSE Collected: 11/04/2018 Status: F Source: [place] 7:56 AM [facility] REPOSITORY TYPE CODE TESTS RESULT OUT OF RANGE REFERENCE UNITS LAB L501.080 70-110 mg/dL Normal BEDSIDE GLU 102 Result Comment: MANAGEMENT OF PATIENT CARE PER NURSING PROTOCOL Performed By: #### L501.080 #### [facility] Point of Care [address] [place] [address] BEDSIDE GLUCOSE Collected: 11/04/2018 Status: F Source: [facility] 6:28 AM [facility] REPOSITORY TYPE CODE TESTS RESULT OUT OF RANGE REFERENCE UNITS LAB L501.080 70-110 mg/dL Normal BEDSIDE GLU 72 Result Comment: MANAGEMENT OF PATIENT CARE PER NURSING PROTOCOL Performed By: #### L501.080 #### [facility] Point of Care [address] [place] [address] CBC W/DIFF, AUTOMATED Collected: 11/04/2018 Status: F Source: [place] 6:20 AM [facility] REPOSITORY TYPE CODE TESTS RESULT OUT OF RANGE REFERENCE UNITS LAB L100.1000 4.4-11.0 K/mm3 Low WBC 4.1 LAB L100.1200 4.2-5.4 M/mm3 Low RBC 2.66 LAB L100.1300 12.0-15.0 g/dl Low HGB 8.4 LAB L100.1400 37-47 % Low HCT 25.5 LAB L100.1500 81-99 fL Normal MCV 95.9 LAB L100.1600 27.0-32.0 pg Normal MCH 31.6 LAB L100.1700 32-36 g/gl Normal MCHC 32.9 LAB L100.1810 11.6-14.6 % Normal RDW CV 13.7 LAB L100.1820 35.1-43.9 fl High RDW SD 48.2 LAB L100.1900 150-450 K/mm3 Low PLT 141 LAB L100.2000 6.2-12.0 fl Normal MPV 9.7 LAB L100.2100 47-70 % Low NEUT% 43.7 LAB L100.2200 19-41 % Normal LY% 36.4 LAB L100.2300 0-10 % High MONO% 14.3 LAB L100.2400 0-5 % Normal EO% 4.9 LAB L100.2500 0-1 % Normal BASO% 0.5 LAB L100.2550 0.0-0.9 % Normal IM GRAN % 0.200 Result Comment: IG% - Immature Granulocytes (promyelocytes, myelocytes and metamyelocytes) > 1% indicates that a LEFT SHIFT is Present. LAB L100.2620 2.0-7.7 X10 3/uL Low Absolute Neut 1.8 LAB L100.2720 0.83-4.51 X10 3/ul Normal Absolute Lymph 1.48 Performed By: #### L100.0100 #### [facility] [address], [address] LIVER PROFILE Collected: 11/04/2018 Status: F Source: [facility] 6:20 AM [facility] REPOSITORY TYPE CODE TESTS RESULT OUT OF RANGE REFERENCE UNITS LAB L501.1500 6.4-8.2 g/dL Low T PROT 6.2 LAB L501.1800 3.2-5.0 g/dL Low ALB 1.9 LAB L501.1950 2.2-4.2 g/dL High GLOB 4.3 LAB L501.4100 15-37 U/L High AST 55 LAB L501.4305 45-117 U/L High ALK P 248 LAB L501.4405 13-56 U/L Normal ALT 30 LAB L501.4600 0.20-1.00 mg/dL High T BILI 1.50 LAB L501.4700 0.00-0.30 mg/dL High D BILI 1.21 Performed By: #### L500.3400 #### [facility] [address] [place], [address] BEDSIDE GLUCOSE Collected: 11/03/2018 Status: F Source: [place] 9:35 PM [facility] REPOSITORY TYPE CODE TESTS RESULT OUT OF REFERENCE UNITS RANGE LAB L501.080 70-110 mg/dL High BEDSIDE GLU 210 Result Comment: MANAGEMENT OF PATIENT CARE PER NURSING PROTOCOL Performed By: #### L501.080 #### [facility] Point of Care [address] [place] [address] BEDSIDE GLUCOSE Collected: 11/03/2018 Status: F Source: [place] 3:49 PM [facility] REPOSITORY TYPE CODE TESTS RESULT OUT OF REFERENCE UNITS RANGE LAB L501.080 70-110 mg/dL High BEDSIDE GLU 123 Result Comment: MANAGEMENT OF PATIENT CARE PER NURSING PROTOCOL Performed By: #### L501.080 #### [facility] Point of Care [address] [place] [address] BEDSIDE GLUCOSE Collected: 11/03/2018 Status: F Source: [place] 11:33 AM [facility] REPOSITORY TYPE CODE TESTS RESULT OUT OF REFERENCE UNITS RANGE LAB L501.080 70-110 mg/dL High BEDSIDE GLU 114 Result Comment: MANAGEMENT OF PATIENT CARE PER NURSING PROTOCOL Performed By: #### L501.080 #### [facility] Point of Care [address] [place] [address] BEDSIDE GLUCOSE Collected: 11/03/2018 Status: F Source: [place] 7:00 AM [facility] REPOSITORY TYPE CODE TESTS RESULT OUT OF REFERENCE UNITS RANGE LAB L501.080 70-110 mg/dL High BEDSIDE GLU 150 Result Comment: MANAGEMENT OF PATIENT CARE PER NURSING PROTOCOL Performed By: #### L501.080 #### [facility] Point of Care [address] [place] [address] CBC W/DIFF, AUTOMATED Collected: 11/03/2018 Status: F Source: [place] 6:51 AM [facility] REPOSITORY TYPE CODE TESTS RESULT OUT OF RANGE REFERENCE UNITS LAB L100.1000 4.4-11.0 K/mm3 Low WBC 3.5 LAB L100.1200 4.2-5.4 M/mm3 Low RBC 2.56 LAB L100.1300 12.0-15.0 g/dl Low HGB 8.1 LAB L100.1400 37-47 % Low HCT 24.6 LAB L100.1500 81-99 fL Normal MCV 96.1 LAB L100.1600 27.0-32.0 pg Normal MCH 31.6 LAB L100.1700 32-36 g/gl Normal MCHC 32.9 LAB L100.1810 11.6-14.6 % Normal RDW CV 14.0 LAB L100.1820 35.1-43.9 fl High RDW SD 48.9 LAB L100.1900 150-450 K/mm3 Low PLT 124 LAB L100.2000 6.2-12.0 fl Normal MPV 9.8 LAB L100.2100 47-70 % Normal NEUT% 54.0 LAB L100.2200 19-41 % Normal LY% 30.2 LAB L100.2300 0-10 % High MONO% 11.0 LAB L100.2400 0-5 % Normal EO% 4.2 LAB L100.2500 0-1 % Normal BASO% 0.6 LAB L100.2550 0.0-0.9 % Normal IM GRAN % 0.000 Result Comment: IG% - Immature Granulocytes (promyelocytes, myelocytes and metamyelocytes) > 1% indicates that a LEFT SHIFT is Present. LAB L100.2620 2.0-7.7 X10 3/uL Low Absolute Neut 1.9 LAB L100.2720 0.83-4.51 X10 3/ul Normal Absolute Lymph 1.07 Performed By: #### L100.0100 #### [facility] [address] [place], [place], [id number] COMPREHENSIVE METABOLIC Collected: 11/03/2018 Status: F Source: [facility] 6:51 AM [facility] REPOSITORY TYPE CODE TESTS RESULT OUT OF RANGE REFERENCE UNITS LAB L501.0100 74-106 mg/dL High GLU 146 Result Comment: Fasting Glucose result greater than or equal to 126 mg/dL suggests DIABETES MELLITUS per A.D.A. criteria. Please note revised GLUCOSE reference range effective 2017. LAB L501.1000 7-18 mg/dL Normal BUN 17 LAB L501.1100 0.55-1.02 mg/dL High CREAT,SERUM 1.29 Result Comment: The validity of the calculated GFR AND GFRAA in patients over 70 years has not been determined. Clinical correlation is essential. LAB L501.1110 >60 mL/min Low EST GFR 45 Result Comment: Non- GFR Calc LAB L501.1115 >60 mL/min Low EST GFR - AA 54 Result Comment: GFR Calc LAB L501.1255 ml/min Normal Estimated CRCL 40.05 LAB L501.1300 10-20 RATIO Normal BUN/CRE 13.2 LAB L501.1500 6.4-8. g/dL Low 2 T PROT 5.8 LAB L501.1800 3.2-5. g/dL Low 0 ALB 1.8 LAB L501.1950 2.2-4. g/dL Normal 2 GLOB 4.0 LAB L501.2000 0.9-2. RATIO Low 4 A/G 0.4 LAB L501.2200 8.5-10 mg/dL Low .1 CA 7.6 LAB L501.4100 15-37 U/L High AST 52 LAB L501.4305 45-117 U/L High ALK P 226 LAB L501.4405 13-56 U/L Normal ALT 29 LAB L501.4600 0.20-1 mg/dL High .00 T BILI 1.70 LAB L501.5300 136-14 mmol/L Normal 5 NA 137 LAB L501.5600 3.5-5. mmol/L Normal 1 K 3.6 LAB L501.5900 98-107 mmol/L Normal CL 105 LAB L501.6100 21.0-3 mmol/L Normal 2.0 CO2 23.0 LAB L501.6200 5-15 Normal GAP 9 Performed By: #### L500.4050 #### [facility] [address], [address] BEDSIDE GLUCOSE Collected: 11/02/2018 Status: F Source: [facility] 9:59 PM [facility] REPOSITORY TYPE CODE TESTS RESULT OUT OF REFERENCE UNITS RANGE LAB L501.080 70-110 mg/dL High BEDSIDE GLU 208 Result Comment: MANAGEMENT OF PATIENT CARE PER NURSING PROTOCOL Performed By: #### L501.080 #### [facility] Point of Care [address] [place] [address] BEDSIDE GLUCOSE Collected: 11/02/2018 Status: F Source: [place] 4:37 PM [facility] REPOSITORY TYPE CODE TESTS RESULT OUT OF REFERENCE UNITS RANGE LAB L501.080 70-110 mg/dL High BEDSIDE GLU 137 Result Comment: MANAGEMENT OF PATIENT CARE PER NURSING PROTOCOL Performed By: #### L501.080 #### [facility] Point of Care [address] [place] [address] BEDSIDE GLUCOSE Collected: 11/02/2018 Status: F Source: [place] 2:32 PM [facility] REPOSITORY TYPE CODE TESTS RESULT OUT OF RANGE REFERENCE UNITS LAB L501.080 70-110 mg/dL Normal BEDSIDE GLU 106 Result Comment: MANAGEMENT OF PATIENT CARE PER NURSING PROTOCOL Performed By: #### L501.080 #### [facility] Point of Care [address] [place] [address] BEDSIDE GLUCOSE Collected: 11/02/2018 Status: F Source: [place] 11:35 AM [facility] REPOSITORY TYPE CODE TESTS RESULT OUT OF REFERENCE UNITS RANGE LAB L501.080 70-110 mg/dL High BEDSIDE GLU 242 Result Comment: MANAGEMENT OF PATIENT CARE PER NURSING PROTOCOL Performed By: #### L501.080 #### [facility] Point of Care [address] [place] [address] BEDSIDE GLUCOSE Collected: 11/02/2018 Status: F Source: [place] 8:14 AM [facility] REPOSITORY TYPE CODE TESTS RESULT OUT OF REFERENCE UNITS RANGE LAB L501.080 70-110 mg/dL High BEDSIDE GLU 140 Result Comment: MANAGEMENT OF PATIENT CARE PER NURSING PROTOCOL Performed By: #### L501.080 #### [facility] Point of Care [address] [place] [address] PROTHROMBIN TIME W/INR Collected: 11/02/2018 Status: F Source: [place] 7:45 AM [facility] REPOSITORY TYPE CODE TESTS RESULT OUT OF RANGE REFERENCE UNITS LAB L300.4150 11.7-14.9 SECONDS High PROTIME 16.2 LAB L300.4200 Normal INR 1.3 Performed By: #### L300.3900 #### [facility] [address] [place], [address] COMPREHENSIVE METABOLIC Collected: 11/02/2018 Status: F Source: [facility] 5:47 AM [facility] REPOSITORY TYPE CODE TESTS RESULT OUT OF RANGE REFERENCE UNITS LAB L501.0100 74-106 mg/dL High GLU 137 Result Comment: Fasting Glucose result greater than or equal to 126 mg/dL suggests DIABETES MELLITUS per A.D.A. criteria. Please note revised GLUCOSE reference range effective 2017. LAB L501.1000 7-18 mg/dL High BUN 21 LAB L501.1100 0.55-1.02 mg/dL High CREAT,SERUM 1.30 Result Comment: The validity of the calculated GFR AND GFRAA in patients over 70 years has not been determined. Clinical correlation is essential. LAB L501.1110 >60 mL/min Low EST GFR 44 Result Comment: Non- GFR Calc LAB L501.1115 >60 mL/min Low EST GFR - AA 54 Result Comment: GFR Calc LAB L501.1255 ml/min Normal Estimated CRCL 39.74 LAB L501.1300 10-20 RATIO Normal BUN/CRE 16.2 LAB L501.1500 6.4-8. g/dL Low 2 T PROT 5.7 LAB L501.1800 3.2-5. g/dL Low 0 ALB 1.8 LAB L501.1950 2.2-4. g/dL Normal 2 GLOB 3.9 LAB L501.2000 0.9-2. RATIO Low 4 A/G 0.5 LAB L501.2200 8.5-10 mg/dL Low .1 CA 7.6 LAB L501.4100 15-37 U/L High AST 50 LAB L501.4305 45-117 U/L High ALK P 210 LAB L501.4405 13-56 U/L Normal ALT 27 LAB L501.4600 0.20-1 mg/dL High .00 T BILI 2.40 LAB L501.5300 136-14 mmol/L Normal 5 NA 137 LAB L501.5600 3.5-5. mmol/L Normal 1 K 3.8 LAB L501.5900 98-107 mmol/L Normal CL 104 LAB L501.6100 21.0-3 mmol/L Normal 2.0 CO2 25.0 LAB L501.6200 5-15 Normal GAP 8 Performed By: #### L500.4050 #### [facility] [place], [address] CBC W/DIFF, AUTOMATED Collected: 11/02/2018 Status: F Source: [place] 5:47 AM [facility] REPOSITORY TYPE CODE TESTS RESULT OUT OF RANGE REFERENCE UNITS LAB L100.1000 4.4-11.0 K/mm3 Normal WBC 4.8 LAB L100.1200 4.2-5.4 M/mm3 Low RBC 2.56 LAB L100.1300 12.0-15.0 g/dl Low HGB 8.2 LAB L100.1400 37-47 % Low HCT 24.7 LAB L100.1500 81-99 fL Normal MCV 96.5 LAB L100.1600 27.0-32.0 pg Normal MCH 32.0 LAB L100.1700 32-36 g/gl Normal MCHC 33.2 LAB L100.1810 11.6-14.6 % Normal RDW CV 14.2 LAB L100.1820 35.1-43.9 fl High RDW SD 49.5 LAB L100.1900 150-450 K/mm3 Low PLT 114 LAB L100.2000 6.2-12.0 fl Normal MPV 10.4 LAB L100.2100 47-70 % Normal NEUT% 54.5 LAB L100.2200 19-41 % Normal LY% 32.9 LAB L100.2300 0-10 % High MONO% 10.1 LAB L100.2400 0-5 % Normal EO% 2.1 LAB L100.2500 0-1 % Normal BASO% 0.2 LAB L100.2550 0.0-0.9 % Normal IM GRAN % 0.200 Result Comment: IG% - Immature Granulocytes (promyelocytes, myelocytes and metamyelocytes) > 1% indicates that a LEFT SHIFT is Present. LAB L100.2620 2.0-7.7 X10 3/uL Normal Absolute Neut 2.6 LAB L100.2720 0.83-4.51 X10 3/ul Normal Absolute Lymph 1.57 Performed By: #### L100.0100 #### [facility] [address] [place], [address] LDH Collected: 11/02/2018 Status: F Source: [place] 5:47 AM [facility] REPOSITORY TYPE CODE TESTS RESULT OUT OF RANGE REFERENCE UNITS LAB L504.2610 84-246 U/L Normal LDH 218 Performed By: #### L504.2610 #### [facility] [address] [place], [address] IRON BINDING Collected: 11/02/2018 Status: F Source: [facility] 5:47 AM [facility] REPOSITORY TYPE CODE TESTS RESULT OUT OF RANGE REFERENCE UNITS LAB L503.6075 250-450 ug/dL Normal TIBC 291 Performed By: #### L503.6075, L503.6150, L503.6550 #### [facility] [address] [place], [address] IRON Collected: 11/02/2018 Status: F Source: [place] 5:47 AM [facility] REPOSITORY TYPE CODE TESTS RESULT OUT OF RANGE REFERENCE UNITS LAB L503.6150 50-170 ug/dL Low IRON 24 Performed By: #### L503.6075, L503.6150, L503.6550 #### [facility] [address] [place], [address] FERRITIN Collected: 11/02/2018 Status: F Source: [place] 5:47 AM [facility] REPOSITORY TYPE CODE TESTS RESULT OUT OF RANGE REFERENCE UNITS LAB L503.6550 8-252 ng/mL Normal FERRITIN 176 Performed By: #### L503.6075, L503.6150, L503.6550 #### [facility] [address] [place], [address] HEPATITIS ABC PROFILE Collected: 11/02/2018 Status: F Source: [place] 5:47 AM [facility] REPOSITORY Order Comment: OK TO ADD ON TO MORNING RUN PER CHARGE NURSE COURT. TYPE CODE TESTS RESULT OUT OF RANGE REFERENCE UNITS LAB L3100.0200 Negative Normal HEP A Negative IgM 6734 LAB L3100.0300 Negative Normal HEP A Negative AB,T.6726 LAB L3100.0400 Negative Normal HB Negative SURF AG LAB L3100.0440 Negative Normal HB Negative CORE [id number] LAB L3100.0460 Negative Normal HEP B Negative CORE,TOT LAB L3100.0510 . Normal Hep B Non Reactive Kaylyn AB Result Comment: Non Reactive: Inconsistent with immunity, less than 10 mIU/mL Reactive: Consistent with immunity, greater than 9.9 mIU/mL LAB L3100.0750 0.0-0.9 s/co ratio Normal HCV Ab <0.1 LAB L3100.0765 . Normal COMMENT Comment Result Comment: Non reactive HCV antibody screen is consistent with no HCV infection, unless recent infection is suspected or other evidence exists to indicate HCV infection. Performed at: [employer] [facility] [id number] Textile Pin Worker: Eliazar Duarte PhD, Phone: [phone] Performed By: #### L3000.0700 #### [facility] (refer to report for specific site) refer to report for address and phone number HAPTOGLOBIN Collected: 11/02/2018 Status: F Source: [place] 5:47 AM [facility] REPOSITORY TYPE CODE TESTS RESULT OUT OF RANGE REFERENCE UNITS LAB L3100.1850 34-200 mg/dL Normal HAPTOGLOB 1628 191 Result Comment: Performed at: [facility] [id number] Textile Pin Worker: Eliazar Duarte PhD, Phone: [phone] Performed By: #### L3100.1850 #### [facility] (refer to report for specific site) refer to report for address and phone number BEDSIDE GLUCOSE Collected: 11/01/2018 Status: F Source: [place] 10:19 PM [facility] REPOSITORY TYPE CODE TESTS RESULT OUT OF REFERENCE UNITS RANGE LAB L501.080 70-110 mg/dL High BEDSIDE GLU 146 Result Comment: MANAGEMENT OF PATIENT CARE PER NURSING PROTOCOL Performed By: #### L501.080 #### [facility] Point of Care [facility] [place] [address] BEDSIDE GLUCOSE Collected: 11/01/2018 Status: F Source: [place] 4:10 PM [facility] REPOSITORY TYPE CODE TESTS RESULT OUT OF REFERENCE UNITS RANGE LAB L501.080 70-110 mg/dL High BEDSIDE GLU 222 Result Comment: MANAGEMENT OF PATIENT CARE PER NURSING PROTOCOL Performed By: #### L501.080 #### [facility] Point of Care [address] [place], [place] [id number] BEDSIDE GLUCOSE Collected: 11/01/2018 Status: F Source: [place] 11:34 AM [facility] REPOSITORY TYPE CODE TESTS RESULT OUT OF REFERENCE UNITS RANGE LAB L501.080 70-110 mg/dL High BEDSIDE GLU 235 Result Comment: MANAGEMENT OF PATIENT CARE PER NURSING PROTOCOL Performed By: #### L501.080 #### [facility] Point of Care [address] [place], [place] [address] BEDSIDE GLUCOSE Collected: 11/01/2018 Status: F Source: [place] 6:42 AM [facility] REPOSITORY TYPE CODE TESTS RESULT OUT OF REFERENCE UNITS RANGE LAB L501.080 70-110 mg/dL High BEDSIDE GLU 175 Result Comment: MANAGEMENT OF PATIENT CARE PER NURSING PROTOCOL Performed By: #### L501.080 #### [facility] Point of Care [address] [place] [address] CBC W/DIFF, AUTOMATED Collected: 11/01/2018 Status: F Source: [place] 5:58 AM [facility] REPOSITORY TYPE CODE TESTS RESULT OUT OF RANGE REFERENCE UNITS LAB L100.1000 4.4-11.0 K/mm3 Normal WBC 6.5 LAB L100.1200 4.2-5.4 M/mm3 Low RBC 2.71 LAB L100.1300 12.0-15.0 g/dl Low HGB 8.7 LAB L100.1400 37-47 % Low HCT 27.2 LAB L100.1500 81-99 fL High MCV 100.4 LAB L100.1600 27.0-32.0 pg High MCH 32.1 LAB L100.1700 32-36 g/gl Normal MCHC 32.0 LAB L100.1810 11.6-14.6 % Normal RDW CV 14.4 LAB L100.1820 35.1-43.9 fl High RDW SD 50.3 LAB L100.1900 150-450 K/mm3 Low PLT 102 LAB L100.2000 6.2-12.0 fl Normal MPV 10.6 LAB L100.2100 47-70 % Normal NEUT% 57.5 LAB L100.2200 19-41 % Normal LY% 28.4 LAB L100.2300 0-10 % High MONO% 11.1 LAB L100.2400 0-5 % Normal EO% 2.5 LAB L100.2500 0-1 % Normal BASO% 0.3 LAB L100.2550 0.0-0.9 % Normal IM GRAN % 0.200 Result Comment: IG% - Immature Granulocytes (promyelocytes, myelocytes and metamyelocytes) > 1% indicates that a LEFT SHIFT is Present. LAB L100.2620 2.0-7.7 X10 3/uL Normal Absolute Neut 3.7 LAB L100.2720 0.83-4.51 X10 3/ul Normal Absolute Lymph 1.84 Performed By: #### L100.0100 #### [facility] [address] [facility] [place], [address] AMMONIA Collected: 11/01/2018 Status: F Source: [place] 5:58 AM [facility] REPOSITORY TYPE CODE TESTS RESULT OUT OF REFERENCE UNITS RANGE LAB L503.5510 11-32 umol/L High AMMONIA 57.0 Performed By: #### L503.5510 #### [facility] [address] [facility] [place], [address] COMPREHENSIVE METABOLIC Collected: 11/01/2018 Status: F Source: [facility] 5:58 AM [facility] REPOSITORY TYPE CODE TESTS RESULT OUT OF RANGE REFERENCE UNITS LAB L501.0100 74-106 mg/dL High GLU 185 Result Comment: Fasting Glucose result greater than or equal to 126 mg/dL suggests DIABETES MELLITUS per A.D.A. criteria. Please note revised GLUCOSE reference range effective 2017. LAB L501.1000 7-18 mg/dL High BUN 25 LAB L501.1100 0.55-1.02 mg/dL High CREAT,SERUM 1.35 Result Comment: The validity of the calculated GFR AND GFRAA in patients over 70 years has not been determined. Clinical correlation is essential. LAB L501.1110 >60 mL/min Low EST GFR 42 Result Comment: Non- GFR Calc LAB L501.1115 >60 mL/min Low EST GFR - AA 51 Result Comment: GFR Calc LAB L501.1255 ml/min Normal Estimated CRCL 38.27 LAB L501.1300 10-20 RATIO Normal BUN/CRE 18.5 LAB L501.1500 6.4-8. g/dL Low 2 T PROT 5.9 LAB L501.1800 3.2-5. g/dL Low 0 ALB 1.9 LAB L501.1950 2.2-4. g/dL Normal 2 GLOB 4.0 LAB L501.2000 0.9-2. RATIO Low 4 A/G 0.5 LAB L501.2200 8.5-10 mg/dL Low .1 CA 7.8 LAB L501.4100 15-37 U/L High AST 52 LAB L501.4305 45-117 U/L High ALK P 205 LAB L501.4405 13-56 U/L Normal ALT 27 LAB L501.4600 0.20-1 mg/dL High .00 T BILI 2.20 LAB L501.5300 136-14 mmol/L Normal 5 NA 138 LAB L501.5600 3.5-5. mmol/L Normal 1 K 3.9 LAB L501.5900 98-107 mmol/L Normal CL 106 LAB L501.6100 21.0-3 mmol/L Normal 2.0 CO2 21.0 LAB L501.6200 5-15 Normal GAP 11 Performed By: #### L500.4050 #### [facility] [address] [facility] [place], [address] BEDSIDE GLUCOSE Collected: 10/31/2018 Status: F Source: [place] 10:20 PM [facility] REPOSITORY TYPE CODE TESTS RESULT OUT OF REFERENCE UNITS RANGE LAB L501.080 70-110 mg/dL High BEDSIDE GLU 228 Result Comment: MANAGEMENT OF PATIENT CARE PER NURSING PROTOCOL Performed By: #### L501.080 #### [facility] Point of Care [address] [facility] [place], [place] [address] BEDSIDE GLUCOSE Collected: 10/31/2018 Status: F Source: [place] 4:32 PM [facility] REPOSITORY TYPE CODE TESTS RESULT OUT OF REFERENCE UNITS RANGE LAB L501.080 70-110 mg/dL High BEDSIDE GLU 170 Result Comment: MANAGEMENT OF PATIENT CARE PER NURSING PROTOCOL Performed By: #### L501.080 #### [facility] Point of Care [address] [place] [address] 12 LEAD ELECTROCARDIOGRAM Observed: 10/31/2018 Status: F Source: [place] 3:14 PM [facility] REPOSITORY [facility] Cardiovascular Services [address] [place] [address] 12 Lead EKG 10/29/18 1148 MR#: [id number] Acct: [id number] Name: MIHAI ALBERTOKristin Tomlinson Rep #: [id number] : 1960 58 From: Tariq Whitaker MD Attending Dr: Jose Angel Luke DPM Status: ADM IN Ordering Dr: Juan Antonio Reis MD Date: 10/29/18 [place] [facility] Sex: F C Admitted: 10/29/18 Test Reason : PRE-OP Blood Pressure : / mmHG Vent. Rate : 079 BPM Atrial Rate : 079 BPM P-R Int : 178 ms QRS Dur : 082 ms QT Int : 366 ms P-R-T Axes : 048 -31 054 degrees QTc Int : 419 ms Poor data quality, interpretation may be adversely affected Normal sinus rhythm Left axis deviation Abnormal ECG Confirmed by JULIANNE ROBERTS, TARIQ ([id number]), senior editor IVAN ALBERTO ([id number]) on 10/31/2018 3:14:35 PM Referred By: Jose Angel Luke Confirmed By:TARIQ WHITAKER MD 10/31/18 1514 Date Tariq Whitaker MD CC: Juan Antonio Reis MD; Jose Angel Luke DPM; Tariq Moore MD Signed AMMONIA Collected: 10/31/2018 Status: F Source: [place] 12:38 PM [facility] REPOSITORY TYPE CODE TESTS RESULT OUT OF REFERENCE UNITS RANGE LAB L503.5510 11-32 umol/L High AMMONIA 49.0 Performed By: #### L503.5510 #### [facility] [address] [place], [address] LIVER Observed: 10/31/2018 Status: F Source: [place] 12:27 PM [facility] REPOSITORY [facility] Imaging Services [address] [place] [address] Liver MR#: [id number] Acct: [id number] Name: VITOR ALBERTO Rep #: [id number] : 1960 F 58 From: Case Liu DO PCP: Tariq Moore MD Status: ADM IN Study: Liver Date of Exam: 10/31/18 Exam# [id number] Ordering Dr: Maritza Mays MD STUDY: ABDOMINAL ULTRASOUND - RIGHT UPPER QUADRANT REASON FOR VISIT: Female, 58 years old. Elevated LFTs TECHNIQUE: Ultrasound evaluation of the right upper quadrant was performed with real-time and static moya-scale imaging. TECHNICAL QUALITY: Adequate. COMPARISON: None. FINDINGS: Liver: The liver measures 17.9 cm. There is coarse echogenicity of the liver. The bile ducts are mildly prominent. There is hepatic color flow. The direction of portal flow is hepatopetal. There is no demonstrated mass lesion. Gallbladder: Status post cholecystectomy. Common Bile Duct (C.B.D.): The common bile duct measures 5 mm. Pancreas: Limited visualization of the pancreas. Right Kidney: Normal size of the right kidney. The right kidney measures 11.3 x 4.9 x 5.4 cm. Normal renal cortex. The right cortex measures 1.4 cm. There is no demonstrated renal mass or cyst. There is no right hydronephrosis. Mild ascites. US/Liver IMPRESSION: Mild ascites. Mild coarse echotexture of the liver. Mild biliary prominence. Electronically Signed: Case Liu DO at 0:04 EST Tel [phone], Service support , CC: Maritza Mays MD; Tariq Moore MD Certified Phlebotomist: Signed BEDSIDE GLUCOSE Collected: 10/31/2018 Status: F Source: [place] 12:19 PM [facility] REPOSITORY TYPE CODE TESTS RESULT OUT OF REFERENCE UNITS RANGE LAB L501.080 70-110 mg/dL High BEDSIDE GLU 183 Result Comment: MANAGEMENT OF PATIENT CARE PER NURSING PROTOCOL Performed By: #### L501.080 #### [facility] Point of Care [address] [place], [place] [address] BEDSIDE GLUCOSE Collected: 10/31/2018 Status: F Source: [place] 7:55 AM [facility] REPOSITORY TYPE CODE TESTS RESULT OUT OF REFERENCE UNITS RANGE LAB L501.080 70-110 mg/dL High BEDSIDE GLU 173 Result Comment: MANAGEMENT OF PATIENT CARE PER NURSING PROTOCOL Performed By: #### L501.080 #### [facility] Point of Care [address] [place] [address] BASIC METABOLIC Collected: 10/31/2018 Status: F Source: [place] PROFILE (BMP) 7:00 AM [facility] REPOSITORY TYPE CODE TESTS RESULT OUT OF RANGE REFERENCE UNITS LAB L501.0100 74-106 mg/dL High GLU 164 Result Comment: Fasting Glucose result greater than or equal to 126 mg/dL suggests DIABETES MELLITUS per A.D.A. criteria. Please note revised GLUCOSE reference range effective 2017. LAB L501.1000 7-18 mg/dL High BUN 26 LAB L501.1100 0.55-1.02 mg/dL High CREAT,SERUM 1.53 Result Comment: The validity of the calculated GFR AND GFRAA in patients over 70 years has not been determined. Clinical correlation is essential. LAB L501.1110 >60 mL/min Low EST GFR 37 Result Comment: Non- GFR Calc LAB L501.1115 >60 mL/min Low EST GFR - AA 44 Result Comment: GFR Calc LAB L501.1255 ml/min Normal Estimated CRCL 33.77 LAB L501.1300 10-20 RATIO Normal BUN/CRE 17.0 LAB L501.2200 8.5-10 mg/dL Low .1 CA 7.4 LAB L501.5300 136-14 mmol/L Normal 5 NA 137 LAB L501.5600 3.5-5. mmol/L Normal 1 K 4.1 LAB L501.5900 98-107 mmol/L Normal CL 105 LAB L501.6100 21.0-3 mmol/L Normal 2.0 CO2 23.0 LAB L501.6200 5-15 Normal GAP 9 Performed By: #### L500.2500 #### [facility] [address] [place], [address] LIVER PROFILE Collected: 10/31/2018 Status: F Source: [place] 7:00 AM [facility] REPOSITORY TYPE CODE TESTS RESULT OUT OF RANGE REFERENCE UNITS LAB L501.1500 6.4-8.2 g/dL Low T PROT 6.0 LAB L501.1800 3.2-5.0 g/dL Low ALB 2.0 LAB L501.1950 2.2-4.2 g/dL Normal GLOB 4.0 LAB L501.4100 15-37 U/L High AST 48 LAB L501.4305 45-117 U/L High ALK P 206 LAB L501.4405 13-56 U/L Normal ALT 26 LAB L501.4600 0.20-1.00 mg/dL High T BILI 2.00 LAB L501.4700 0.00-0.30 mg/dL High D BILI 1.55 Performed By: #### L500.3400 #### [facility] [address] [place], [place], [address] BEDSIDE GLUCOSE Collected: 10/30/2018 Status: F Source: [place] 9:03 PM [facility] REPOSITORY TYPE CODE TESTS RESULT OUT OF REFERENCE UNITS RANGE LAB L501.080 70-110 mg/dL High BEDSIDE GLU 263 Result Comment: MANAGEMENT OF PATIENT CARE PER NURSING PROTOCOL Performed By: #### L501.080 #### [facility] Point of Care [address] [place], [place] [address] BEDSIDE GLUCOSE Collected: 10/30/2018 Status: F Source: [place] 3:55 PM [facility] REPOSITORY TYPE CODE TESTS RESULT OUT OF REFERENCE UNITS RANGE LAB L501.080 70-110 mg/dL High BEDSIDE GLU 256 Result Comment: MANAGEMENT OF PATIENT CARE PER NURSING PROTOCOL Performed By: #### L501.080 #### [facility] Point of Care [address] [place] [address] BEDSIDE GLUCOSE Collected: 10/30/2018 Status: F Source: [place] 11:01 AM [facility] REPOSITORY TYPE CODE TESTS RESULT OUT OF REFERENCE UNITS RANGE LAB L501.080 70-110 mg/dL High BEDSIDE GLU 223 Result Comment: MANAGEMENT OF PATIENT CARE PER NURSING PROTOCOL Performed By: #### L501.080 #### [facility] Point of Care [address] [place] [address] BEDSIDE GLUCOSE Collected: 10/30/2018 Status: F Source: [place] 9:10 AM [facility] REPOSITORY TYPE CODE TESTS RESULT OUT OF REFERENCE UNITS RANGE LAB L501.080 70-110 mg/dL High BEDSIDE GLU 219 Result Comment: MANAGEMENT OF PATIENT CARE PER NURSING PROTOCOL Performed By: #### L501.080 #### [facility] Point of Care [address] [place] [address] BEDSIDE GLUCOSE Collected: 10/30/2018 Status: F Source: [place] 6:40 AM [facility] REPOSITORY TYPE CODE TESTS RESULT OUT OF REFERENCE UNITS RANGE LAB L501.080 70-110 mg/dL High BEDSIDE GLU 227 Result Comment: MANAGEMENT OF PATIENT CARE PER NURSING PROTOCOL Performed By: #### L501.080 #### [facility] Point of Care [address] [place] [address] CBC W/DIFF, AUTOMATED Collected: 10/30/2018 Status: F Source: [place] 6:35 AM [facility] REPOSITORY TYPE CODE TESTS RESULT OUT OF RANGE REFERENCE UNITS LAB L100.1000 4.4-11.0 K/mm3 Normal WBC 6.0 LAB L100.1200 4.2-5.4 M/mm3 Low RBC 3.15 LAB L100.1300 12.0-15.0 g/dl Low HGB 10.0 LAB L100.1400 37-47 % Low HCT 30.7 LAB L100.1500 81-99 fL Normal MCV 97.5 LAB L100.1600 27.0-32.0 pg Normal MCH 31.7 LAB L100.1700 32-36 g/gl Normal MCHC 32.6 LAB L100.1810 11.6-14.6 % High RDW CV 14.8 LAB L100.1820 35.1-43.9 fl High RDW SD 52.9 LAB L100.1900 150-450 K/mm3 Low PLT 123 LAB L100.2000 6.2-12.0 fl Normal MPV 10.0 LAB L100.2100 47-70 % Normal NEUT% 58.0 LAB L100.2200 19-41 % Normal LY% 26.5 LAB L100.2300 0-10 % High MONO% 11.6 LAB L100.2400 0-5 % Normal EO% 3.2 LAB L100.2500 0-1 % Normal BASO% 0.5 LAB L100.2550 0.0-0.9 % Normal IM GRAN % 0.200 Result Comment: IG% - Immature Granulocytes (promyelocytes, myelocytes and metamyelocytes) > 1% indicates that a LEFT SHIFT is Present. LAB L100.2620 2.0-7.7 X10 3/uL Normal Absolute Neut 3.5 LAB L100.2720 0.83-4.51 X10 3/ul Normal Absolute Lymph 1.58 Performed By: #### L100.0100 #### [facility] [address] [facility] [place], [place], [id number] COMPREHENSIVE METABOLIC Collected: 10/30/2018 Status: F Source: [facility] 6:35 AM [facility] REPOSITORY TYPE CODE TESTS RESULT OUT OF RANGE REFERENCE UNITS LAB L501.0100 74-106 mg/dL High GLU 228 Result Comment: Glucose result greater than or equal to 200 mg/dL suggests DIABETES MELLITUS per A.D.A. criteria. Please note revised GLUCOSE reference range effective 2017. LAB L501.1000 7-18 mg/dL High BUN 22 LAB L501.1100 0.55-1.02 mg/dL High CREAT,SERUM 1.76 Result Comment: The validity of the calculated GFR AND GFRAA in patients over 70 years has not been determined. Clinical correlation is essential. LAB L501.1110 >60 mL/min Low EST GFR 31 Result Comment: Non- GFR Calc LAB L501.1115 >60 mL/min Low EST GFR - AA 38 Result Comment: GFR Calc LAB L501.1255 ml/min Normal Estimated CRCL 29.35 LAB L501.1300 10-20 RATIO Normal BUN/CRE 12.5 LAB L501.1500 6.4-8. g/dL Low 2 T PROT 6.2 LAB L501.1800 3.2-5. g/dL Low 0 ALB 2.2 LAB L501.1950 2.2-4. g/dL Normal 2 GLOB 4.0 LAB L501.2000 0.9-2. RATIO Low 4 A/G 0.6 LAB L501.2200 8.5-10 mg/dL Low .1 CA 7.9 LAB L501.4100 15-37 U/L High AST 52 LAB L501.4305 45-117 U/L High ALK P 223 LAB L501.4405 13-56 U/L Normal ALT 33 LAB L501.4600 0.20-1 mg/dL High .00 T BILI 1.50 LAB L501.5300 136-14 mmol/L Low 5 NA 135 LAB L501.5600 3.5-5. mmol/L Normal 1 K 4.0 LAB L501.5900 98-107 mmol/L Normal CL 101 LAB L501.6100 21.0-3 mmol/L Normal 2.0 CO2 22.0 LAB L501.6200 5-15 Normal GAP 12 Performed By: #### L500.4050 #### [facility] [address] [facility] [place], [address] HISTORY AND PHYSICAL Observed: 10/29/2018 Status: F Source: [place] EXAM 11:47 PM [facility] REPOSITORY [facility] Medical Records Department [address] [place] [address] History and Physical 10/29/18 1855 MR#: [id number] Acct: [id number] Name: VITOR ALBERTO Rep #: [id number] : 1960 58 From: Jose Angel Luke DPM PCP: Tairq Moore MD Status: REG SDC Y [place] [facility] [place] [id number] History of Present Illness Date of Admission: 10/29/18 Chief Complaint: Left foot charcot neuroarthropathy The patient is a 58 year old female with history of diabetes, 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 Castañeda) had surgery on left foot/ankle today and needs admission for post operative pain management. Patient injuried left ankle this summer while at [employer], walked on fracture for several weeks because she had no pain from her neuropathy, although it was swollen. She presented to me several weeks after the injury. She was nonadherent with staying off of her foot and immobilization, ultimately left with nonhealing charcot neuroarthropathy with significant instability as well as breakdown of the foot/ankle. She underwent tibiotalocalcaneal arthrodesis as well as talonavicular arthrodesis today. She will be admitted for post operative pain control. She has otherwise been at [facility] since this summer 2017, due to her foot/ankle status. Past Medical History Past Medical History (Chronic [...] Peripheral neuropathy (Chronic) Tobacco use disorder (Chronic) Obesity (Chronic) Medical History: Medical History (Last Reviewed 06/05/18 @ 08:58 by Marta Santos) Chronic pain (Chronic) G89.29 Abnormal EKG (Chronic) R94.31 ekg's indicating possible previous inferior infarct HTN (hypertension) (Chronic) I10 Type II diabetes mellitus (Chronic) E11.9 Peripheral neuropathy (Chronic) G62.9 Tobacco use disorder (Chronic) F17.200 Allergies clindamycin [From Cleocin] Allergy (Verified 10/16/18 11:15) Itching Sulfa (Sulfonamide Antibiotics) Allergy (Verified 10/16/18 11:15) Itching ondansetron [From Zofran (as hydrochloride)] Adverse Reaction (Verified 10/16/18 11:15) Nausea Home Medications: Ambulatory Orders Medication Instructions Recorded Omeprazole 20 mg PO DAILY 12/16/16 Docusate Sodium [Colace] 100 mg PO PRN PRN 07/23/17 atorvastatin 40 mg tablet 40 mg PO QHS 06/04/18 Surgical History: Surgical History (Last Reviewed 06/05/18 @ 08:58 by Marta Santos) 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 Luke. Surgical History: cholecystectomy, - - Amputation of the left fourth and fifth toes and metatarsals. Psychiatric History: No pertinent psych hx PATIENT ACCOUNTS MANAGER History: No pertinent PATIENT ACCOUNTS MANAGER history Smoking Status: Current every day smoker - *Family History Maternal Family History: Family [...] Disease Review of Systems Constitutional: Denies: Chills, Fever Cardiovascular: Denies: Chest Pain, Chest Pressure, Chest Tightness Respiratory: Denies: Shortness of Breath Gastrointestinal: Denies: Nausea, Vomiting Musculoskeletal: Reports: Foot Pain. Denies: Back Pain Skin: Reports: Wounds - hx of left foot ulcers s/p partial 4th and 5th ray amputation left foot (2016) VTE Information - Inpt Only VTE Present on Admission: Yes VTE Mechan Device Prophylaxis: SCD's VTE Pharm Prophylaxis ordered?: Yes - Physical Exam General: Alert, Oriented x3, Cooperative, No apparent distress Extremities: No clubbing, No cyanosis, Capillary Refill Less than 3 Seconds, No Calf Tenderness, Peripheral Pulses Normal, - - Dressing clean, dry and intact left foot/ankle Musculoskeletal: No Tenderness to Palpation of Joints or Extremities Psych/Mental Status: Appropriate Vital Signs Temp Pulse Resp BP Pulse Ox 97.5 F L 78 16 103/38 L 99 10/29/18 18:26 10/29/18 18:26 10/29/18 18:26 10/29/18 18:26 10/29/18 18:26 Oxygen Flow Rate (L/min) 3 Oxygen Delivery Method Nasal Cannula Weight: 79.832 kg Body Mass Index (BMI) 30.2 POC Glucose POC Glucose 197 H 217 H Assessment/Plan All Active Problems (Last Reviewed 06/05/18 @ 08:58 by Marta Santos) Complicated fracture of left calcaneum (Acute) Complicated fracture of left talus (Acute) Charcot's joint, left ankle and foot (Acute) Osteomyelitis of ankle or foot (Resolved) Diabetic foot infection (Resolved) Diabetic infected right heel ulcer (Resolved) Charcot Neuroarthropathy, left foot/ankle s/p tibiotalocalcaneal and talonavicular arthrodesis Diabetes with peripheral neuropathy Hypertension Anxiety, Depression Tobacco Dependence/Abuse Vitamin D Deficiency Charcot Neuroarthropathy, left foot/ankle s/p tibiotalocalcaneal and talonavicular arthrodesis. -Leave dressing clean, dry, intact. -No weightbearing left foot -Must keep the left foot elevated at all times, keep heel offloaded with pillows -Ancef 1 gram q 8 hours for 24 hours -Pain management: Acetaminophen, Oxycodone, and Morphine has been ordered -DVT Prophylaxis: Lovenox 40mg once daily Subcutaneous starting tomorrow morning -Incentive Spirometry Diabetes with peripheral neuropathy, Hypertension, Hyperlipidemia, Anxiety, Depression - medicine has been consulted for medical management, appreciate medicine team's assistance Tobacco Dependence/Abuse - advised tobacco/smoking cessation - I have reviewed the importance of this as well as the rationale of this with her great detail. Vitamin D Deficiency - patient on 50,000 units ergocalciferol PO twice a week 10/29/18 5053 <Electronically signed by Jose Angel Luke DPM> Date Jose Angel Luke DPM Cosigner Signature: Date (if applicable) CC: Jose Angel Luke DPM; Tariq Moore MD Signed BEDSIDE GLUCOSE Collected: 10/29/2018 Status: F Source: [place] 10:18 PM [facility] REPOSITORY TYPE CODE TESTS RESULT OUT OF REFERENCE UNITS RANGE LAB L501.080 70-110 mg/dL High BEDSIDE GLU 229 Result Comment: MANAGEMENT OF PATIENT CARE PER NURSING PROTOCOL Performed By: #### L501.080 #### [facility] Point of Care [address] [place] [address] CONSULTATION Observed: 10/29/2018 Status: F Source: [place] 8:24 PM [facility] REPOSITORY [facility] Medical Records Department [address] [place] [address] Consultation 10/29/182013 MR#: [id number] Acct: [id number] Name: VITOR ALBERTO Rep #: [id number] : 1960 58 From: Michelle Arreola PCP: Tariq Moore MD Status: REG [facility] [place] Location: LA3 [id number] Problem List (1) Charcot's joint, left ankle and foot Status: Acute (2) Chronic pain Status: Chronic Qualifiers: Chronic pain type: other chronic pain Qualified Code(s): G89.29 - Other chronic pain (3) Anxiety Status: Chronic (4) Depression Status: Chronic Qualifiers: Depression Type: unspecified Qualified Code(s): F32.9 - Major depressive disorder, single episode, unspecified (5) HTN (hypertension) Status: Chronic Qualifiers: Hypertension type: essential hypertension Qualified Code(s): I10 - Essential (primary) hypertension (6) Type II diabetes mellitus Status: Chronic Qualifiers: Diabetes mellitus senior care insulin use: with senior care use Diabetes mellitus complication status: with unspecified complications Qualified Code(s): E11.8 - Type 2 diabetes mellitus with unspecified complications; Z79.4 - terminologist (current) use of insulin (7) Peripheral neuropathy Status: Chronic Qualifiers: Peripheral neuropathy type: polyneuropathy, unspecified Qualified Code(s): G62.9 - Polyneuropathy, unspecified (8) Tobacco use disorder Status: Chronic (9) Obesity Status: Chronic Qualifiers: Obesity type: due to excess calories Obesity classification: adult class 1 (BMI 30 - 34.9) Reason for Consult Date of Consultation: 10/29/18 Reason for Consultation: Medical management, co-admission w/ Podiatry History of Present Illness: The patient is a 58 y/o F w/ PMHx: CAD s/p Prior AR without MCI, HTN, HLD, Obesity, Diabetes mellitus type II w/ Neuropathy, GERD, Anxiety and Depression who presents to the [facility] on 10/29/18 for planned surgical intervention per Dr. Luke for Charcot neuroarthropathy left ankle and hindfoot with no marked chivo-operative events with requested medical consultation for co-admission of the patient. In the PACU patient is very fatigued, sedate with notable recent anesthetic sedation. Patient notes currently pain improved with recent regimen. Discussed importance of tobacco cessation given severity of peripheral vascular disease and recent lower extremity intervention. Past Medical History Past Medical History (Chronic [...] Peripheral neuropathy (Chronic) Tobacco use disorder (Chronic) Obesity (Chronic) Medical History: Medical History (Last Reviewed 06/05/18 @ 08:58 by Marta Santos) Chronic pain (Chronic) G89.29 Abnormal EKG (Chronic) R94.31 ekg's indicating possible previous inferior infarct HTN (hypertension) (Chronic) I10 Type II diabetes mellitus (Chronic) E11.9 Peripheral neuropathy (Chronic) G62.9 Tobacco use disorder (Chronic) F17.200 Allergies clindamycin [From Cleocin] Allergy (Verified 10/16/18 11:15) Itching Sulfa (Sulfonamide Antibiotics) Allergy (Verified 10/16/18 11:15) Itching ondansetron [From Zofran (as hydrochloride)] Adverse Reaction (Verified 10/16/18 11:15) Nausea Home Medications: Ambulatory Orders Medication Instructions Recorded Omeprazole 20 mg PO DAILY 12/16/16 Docusate Sodium [Colace] 100 mg PO PRN PRN 07/23/17 atorvastatin 40 mg tablet 40 mg PO QHS 06/04/18 Surgical History: Surgical History (Last Reviewed 06/05/18 @ 08:58 by Marta Santos) 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 Luke. Surgical History: cholecystectomy, - - Amputation of the left fourth and fifth toes and metatarsals, recent intervention per Dr. Luke w/ tibiotalocalcaneal arthrodesis as well as talonavicular arthrodesis. Psychiatric History: No pertinent psych hx PATIENT ACCOUNTS MANAGER History: No pertinent PATIENT ACCOUNTS MANAGER history Lives: [facility] Smoking Status: Current every day smoker - 11/02-10/31 ppd. Tobacco Use: Cigarettes Alcohol: None Drugs: None - *Family History Maternal Family History: Family [...] Items: Heart Disease Review of Systems Constitutional: Reports: Malaise, Weakness, Fatigue. Denies: Chills, Fever, Weight Change HEENT: Denies: Head Aches, Sinus Congestion, Sinus Drainage Cardiovascular: Denies: Chest Pain, Palpitations Respiratory: Denies: Cough, Shortness of breath at rest, Sputum production Gastrointestinal: Denies: Abdominal Pain, Nausea, Vomiting Genitourinary: Denies: Dysuria Musculoskeletal: Reports: Back Pain, Joint Pain, Joint stiffness, Joint swelling, Joint Tenderness, Leg Pain Skin: Denies: Rash, Wounds Neurological: Denies: Numbness, Tingling, Focal weakness Psychiatric: Reports: Anxiety, Depression. Denies: Homicidal Ideations, Suicidal Ideations Hematologic/ Lymphatic: Denies: Easy Bruising, Easy Bleeding Subjective: Seated upright in the PACU bed, fatigued, sedate with recent anesthetic. Objective: Physical Examination: General: awakens to stimuli, fatigued, intermittently alert, orientation decreased given recent sedation, remains cooperative, seated upright in the PACU bed in no apparent distress. Skin: normal color, turgor, no icterus, cyanosis, L foot elevated, extensive dressing in place. HEENT: AT/NC, EOMI, PERRLA, only dry MM, no carotid bruits or JVD noted. Lungs: CTA bilaterally, moderate effort, mild decrease BL bases, no rales, ronchi or wheezing. Heart: Regular rate and rhythm; no gallop, rub audible. Abdomen: soft, obese, NTTP, ND, normal BS, no HSM. Extremities: no cyanosis, clubbing, see skin. Neurological: awakens to stimuli, fatigued, intermittently alert, orientation decreased given recent sedation, remains cooperative, seated upright in the PACU bed in no apparent distress; cognitive function not baseline intact; pupils equally reactive to light and accomodation; cranial nerves II-XII grossly normal, primarily moving upper extremities, recent intervention with anesthetic and block, strength severely globally decreased secondary to recent acute interventions Psychiatric: affect appears flat, no acute evidence of depressive or anxiety feelings. - Physical Exam Vital Signs Temp Pulse Resp BP Pulse Ox 97.6 F L 79 18 115/46 L 95 10/29/18 20:12 10/29/18 20:12 10/29/18 20:12 10/29/18 20:12 10/29/18 20:12 Oxygen Flow Rate (L/min) 3 Oxygen Delivery Method Room Air Weight: 189 lb Body Mass Index (BMI) 32.4 Finger Stick Blood Glucose 197 Intake and Output for Last 24 Hours Intake Total 2300 / 2300 Balance 2300 / 2300 POC Glucose POC Glucose 197 H 217 H Assessment/Plan All Active Problems (Last Reviewed 06/05/18 @ 08:58 by Marta Santos) Complicated fracture of left calcaneum (Acute) Complicated fracture of left talus (Acute) Charcot's joint, left ankle and foot (Acute) Osteomyelitis of ankle or foot (Resolved) Diabetic foot infection (Resolved) Diabetic infected right heel ulcer (Resolved) The patient is a 58 y/o F w/ PMHx: CAD s/p Prior AR without MCI, HTN, HLD, Obesity, Diabetes mellitus type II w/ Neuropathy, GERD, Anxiety and Depression who presents to the [facility] on 10/29/18 for planned surgical intervention per Dr. Luke for Charcot neuroarthropathy left ankle and hindfoot with no marked chivo-operative events with requested medical consultation for co-admission of the patient. (1) Acute on Chronic Pain, LLE w/ Charcot neuroarthropathy left ankle and hindfoot: Operative intervention tibiotalocalcaneal arthrodesis as well as talonavicular arthrodesis 10/29/[address] Luke, failed conservative therapies and treatments, admitted for pain control with planned return once appropriate to SNF, pain management with continued home OxyContin in addition to oral PRN oxycodone and as needed breakthrough IV Dilaudid will immediately consider temporary increase OxyContin for improved control given history of chronic pain, bowel regimen, DVT Prophylaxis, PT/OT/CM, WB status per podiatry discretion. (2) Diabetes mellitus type II: Hold oral home regimen, continue home insulin regimen, ADA diet, accu checks w/ ISS. (3) Hypertension: Continue home regimen including chlorthalidone, lisinopril, PRN hydralazine. (4) Hyperlipidemia: Continue home statin regimen. (5) Obesity: Weight loss and lifestyle changes encouraged. (6) Anxiety and depression: Continue home Cymbalta, Ativan regimen. (7) GERD: PPI. (8) DVT Prophylaxis: SCDs, lovenox. Code Visit Inpatient E AND M: 94901 Subs Hosp L3 10/29/182022 <Electronically signed by Michelle Arreola > Date Michelle Arreola Cosigner Signature (if applicable): Date CC: Jose Angel Luke DPM; Tariq Moore MD; Froilan Rosenthal MD Signed BEDSIDE GLUCOSE Collected: 10/29/2018 Status: F Source: [place] 6:35 PM [facility] REPOSITORY TYPE CODE TESTS RESULT OUT OF REFERENCE UNITS RANGE LAB L501.080 70-110 mg/dL High BEDSIDE GLU 197 Result Comment: MANAGEMENT OF PATIENT CARE PER NURSING PROTOCOL Performed By: #### L501.080 #### [facility] Point of Care [address] [place], [place] [address] Observed: 10/29/2018 Status: F Source: [place] CULTURE, DEEP WOUND 6:32 PM [facility] REPOSITORY Order Date: 05/31/17 List Antibiotics Last 48 Hours? VANCOMYCIN Has pt arrived? Y Comments: LEFT ANKLE CALCANEAL-NAVICULAR JOINT Gram Stain Gram Stain Rare Red Blood Cells No organisms seen Wound Culture No growth aerobically. Cult, Anaerobic No anaerobic bacteria isolated. Performed By: #### M100.1500 #### [facility] [address] [place], [place] [address], [place], [id number] Observed: 10/29/2018 Status: P Source: [place] CULTURE, FUNGUS W/ 6:32 PM [facility] [id number] REPOSITORY Comments: LEFT ANKLE CALCANEAL NAVICULAR JOINT Has pt arrived? Y Is this test to exclude patient from TB Isolation? N [address] 8136 TESTING PERFORMED AT [facility]. ORIGINAL REPORT ON FILE IN LAB CONTAINS ADDITIONAL TEST SITE INFORMATION. Fungus Stain No yeast or mold observed. Performed By: #### M600.1900 #### [facility] [address] [place] [address], [id number] ANKLE MIN 3 VIEWS Observed: 10/29/2018 Status: F Source: [place] 6:03 PM [facility] REPOSITORY [facility] Imaging Services [address] [place] [address] Ankle min 3 Views MR#: [id number] Acct: [id number] Name: VITOR ALBERTO Rep #: [id number] : 1960 F 58 From: Wanda Amato MD PCP: Tariq Moore MD Status: [facility] Study: Ankle min 3 Views Date of Exam: 10/29/18 Exam# [id number] Ordering Dr: Jose Angel Luke DPM STUDY: X-RAY - LEFT ANKLE REASON FOR EXAM: Female, 58 years old. Postoperative. TECHNIQUE: 3 view(s) of the ankle. COMPARISON: None. FINDINGS: The patient is status post internal fixation and arthrodesis of the left ankle. Evaluation is limited by the presence of hardware. Anterior tibial plate and screws are present. Posterior tibial and calcaneal plate and screws are present. Fixation screw traverses the calcaneus and distal tibia. There is marked narrowing of the tibiotalar joint. The talus appears sclerotic, consistent with avascular necrosis. There is narrowing of the subtalar joint. Demonstrated midfoot is osteoporotic consistent with disuse. The patient is status post amputation of the fourth and fifth digits. RAD/Ankle min 3 Views IMPRESSION: Anatomic alignment status post arthrodesis of the tibiotalar joint. Avascular necrosis of the talus. Narrowing of the tibiotalar and subtalar joints. Additional chronic findings are detailed above. Electronically Signed: Wanda Amato MD at 20:52 EST Tel , Service support , CC: Jose Angel Luke DPM; Tariq Moore MD Certified Phlebotomist: Signed FOOT MIN 3 VIEWS Observed: 10/29/2018 Status: F Source: [place] 6:03 PM [facility] REPOSITORY [facility] Imaging Services [address] [place] [address] Foot min 3 Views MR#: [id number] Acct: [id number] Name: VITOR ALBERTO Rep #: [id number] : 1960 F 58 From: Ksenia Alberto MD PCP: Tariq Moore MD Status: [facility] Study: Foot min 3 Views Date of Exam: 10/29/18 Exam# [id number] Ordering Dr: Jose Angel Luke DPM STUDY: X-RAY - LEFT FOOT CLINICAL: Female, 58 years old. Postop evaluation. TECHNIQUE: 3 view(s) of the foot. COMPARISON: Radiographs of the left foot dated August 28, 2018. FINDINGS: There are too numerous to count screws traversing the distal tibia as well as the hindfoot tarsal bones particularly the talus and calcaneus. Plate and screws are also visible. The bones are severely osteopenic. There appear to be multiple bone fragments in the region of the distal tibia and fibula. There is demineralization of the second and third metatarsi. Only of the proximal fourth metatarsal is present. The patient has had amputation of most of the fourth metatarsal and amputation the fifth metatarsal. There is degenerative arthrosis of the metatarsophalangeal joint of the hallux . Normal tibial and fibular sesamoid bones. Normal interphalangeal joint of the great toe. Normal phalanges of the great toe. Normal second and third metatarsophalangeal joints. The patient has had amputation of the phalanges of the fourth and fifth toes. The phalanges of the second and third toes appear osteopenic without obvious acute fracture. There is diffuse soft tissue swelling of ankle and foot. RAD/Foot min 3 Views IMPRESSION: 1. Documentation of surgical arthrodesis of the tibiotalar articulation as well as several the articulations of the hindfoot. 2. Osteoporosis. 3. Status post amputations of the phalanges of the fourth and fifth toes, most of the fourth metatarsal and the entire fifth metatarsal. Electronically Signed: Ksenia Alberto MD at 2:04 EST , Service support , CC: Jose Angel Luke DPM; Tariq Moore MD Certified Phlebotomist: Signed BONE (FX/NONFRACTURE) Observed: 10/29/2018 Status: F Source: [place] 12:30 PM [facility] REPOSITORY Patient: VITOR ALBERTO : 1960 (58/F) Acct Num: [id number] Phys: Ti BYRD,Jose Angel Unit Num: [id number] Loc: MS3 [id number] Specimen: [id number] Received: 10/31/18924 Spec Type: Bone TISSUES 1 TISSUES: Bone of foot, NOS GROSS DESCRIPTION Received in fixative is one container labeled with the patient's name and designated left ankle calcaneal-navicular joint. The specimen consists of multiple fragments of bone that in aggregate measure 3 x 2.5 x 0.3 cm. The entire specimen is submitted in one cassette after decalcification. / SJ:margarita TC:5 CPT: 60381, 59410 HEADER OPERATION: Ankle fusion arthrodesis, subtalar fusion arthrodesis PRE-OP DIAGNOSIS: Left talus fracture, calcaneus fracture and Charcot's left ankle secondary to diabetic neuropathy TISSUE SUBMITTED: Left ankle calcaneal-navicular joint MICROSCOPIC DESCRIPTION Slides are reviewed. MICROSCOPIC DIAGNOSIS Left ankle, calcaneal-navicular joint, biopsy: Osteonecrosis with organizing fracture callus. Fibrous tissue with granulation. No evidence of acute osteomyelitis. AM:margarita 11/05/18 Signed Rubén Lim, 11/05/18 <signature on file> Performed By: #### PBON #### [facility] [address] [place], [address] BEDSIDE GLUCOSE Collected: 10/29/2018 Status: F Source: [place] 12:04 PM [facility] REPOSITORY TYPE CODE TESTS RESULT OUT OF REFERENCE UNITS RANGE LAB L501.080 70-110 mg/dL High BEDSIDE GLU 217 Result Comment: MANAGEMENT OF PATIENT CARE PER NURSING PROTOCOL Performed By: #### L501.080 #### [facility] Point of Care [address] [place] [address] ANKLE 2 VIEWS Observed: 10/29/2018 Status: F Source: [place] 12:32 AM [facility] REPOSITORY [facility] Imaging Services [address] [place] [address] Ankle 2 Views MR#: [id number] Acct: [id number] Name: VITOR ALBERTO Rep #: [id number] : 1960 F 58 From: Wanda Amato MD PCP: Tariq Moore MD Status: [facility] Study: Ankle 2 Views Date of Exam: 10/29/18 Exam# [id number] Ordering Dr: Jose Angel Luke DPM STUDY: X-RAY - LEFT ANKLE REASON FOR EXAM: Female, 58 years old. Left ankle fusion. TECHNIQUE: 7 view(s) of the ankle. COMPARISON: None. FINDINGS: Multiple images were obtained intraoperatively. There is internal fixation of the distal tibia and calcaneus. RAD/Ankle 2 Views IMPRESSION: Images obtained for hardware localization. Electronically Signed: Wanda Amato MD at 19:39 EST Tel , Service support , CC: Jose Angel Luke DPM; Tariq Moore MD Certified Phlebotomist: Signed STRESS TEST ECHO W/O Observed: 10/10/2018 Status: F Source: [place] CONTRAST 3:08 PM [facility] REPOSITORY [facility] Cardiovascular Services [address] [place] [address] Stress Test Echo w/o Contrast MR#: [id number] Acct: [id number] Name: VITOR ALBERTO Rep #: [id number] : 1960 58 From: Luis Castañeda MD [...] Referring Physician: Luis Castañeda Performed By: Chrissie Jane, RDEDUARDA, RVT 10/10/18 1507 Date Luis Castañeda MD CC: Luis Castañeda MD; Tariq Moore MD Date Dictated: 10/10/18 1333 Date Transcribed: 10/10/18 150 Certified Phlebotomist: Signed LOWER EXT ARTERIAL Observed: 09/30/2018 Status: F Source: [facility] 7:07 PM [facility] REPOSITORY [facility] Cardiovascular Services [address] [place] [address] 09/30/18 1855 MR#: [id number] Acct: [id number] Name: VITOR ALBERTO Rep #: [id number] : 1960 58 From: Seamus Hernandez MD Attending Dr: Jose Angel Luke DPM Status: REG CLI Ordering Dr: Date: 09/30/18 Location: [facility] Sex: F C Admitted: Arterial Study [...] MD Date Dictated: 09/30/181854 Date Transcribed: 09/30/181854 Certified Phlebotomist: LAW Vargas LOWER EXT ARTERIAL Observed: 09/26/2018 Status: F Source: [facility] 3:48 PM [facility] REPOSITORY [facility] Cardiovascular Services [address] [place] [address] 09/26/18 1540 MR#: [id number] Acct: [id number] Name: ALBERTOVITOR J Rep #: [id number] : 1960 58 From: Seamus Hernandez MD Attending Dr: Luis Castañeda MD Status: REG CLI Ordering Dr: Date: 09/26/18 Location: [facility] Sex: F C Admitted: Arterial Study [...] MD Date Dictated: 09/26/181539 Date Transcribed: 09/26/181539 Certified Phlebotomist: LAW Vargas ECHOCARDIOGRAM COMPLETE Observed: 09/26/2018 Status: F Source: [place] 3:21 PM [facility] REPOSITORY [facility] Cardiovascular Services [address] [place] [address] Echo Complete 09/26/18 1400 MR#: [id number] Acct: [id number] Name: VITOR ALBERTO Rep #: [id number] : 1960 58 From: Luis Castañeda MD Attending Dr: Luis Castañeda MD Status: REG CLI Ordering Dr: Luis Castañeda MD Date: 09/26/18 Location: [facility] Sex: F C Admitted: Reason For Study: [...] Doppler Measurements AND Calculations MV E max danilo: 97.7 cm/sec Lat Peak E' Danilo: 8.6 cm/sec Med Peak E' Danilo: 6.6 cm/sec MV A max danilo: 98.8 cm/sec E/E' lat: 11.4 E/E' med: [...] PA V2 max: 110.8 cm/sec TR max danilo: 291.4 cm/sec TR max P.0 mmHg Interpretation Summary The estimated ejection fraction is 65 %. Normal diastology for age. Trivial tricuspid valve insufficiency. Right ventricular systolic pressure estimated to be 39 mmHg. Mild pulmonary hypertension. Mild aortic stenosis. There is no comparison study available. Ordering Physician: Luis Castañeda Referring Physician: TARIQ MOORE Performed By: Crystal Baumann RDCS 09/26/18 1521 Date Luis Castañeda MD CC: Luis Castañeda MD; Tariq Moore MD Date Dictated: 09/26/18 1400 Date Transcribed: 09/26/181520 Certified Phlebotomist: Signed CNCO Observed: 09/04/2018 Status: COMPLETED Source: [place] 12:00 AM [facility] REPOSITORY Letter Text [address] [place] [address] 09/04/2018 Vitor Alberto [id number] Dear Vitor , As your healthcare provider, our records [...] this procedure. Please contact our schedulers at [phone] schedule an appointment or contact your primary care physician if you have any questions regarding colon cancer screening. As always, your health is of primary concern to our practice. We look forward to hearing from you. Sincerely, [facility] OPERATIVE REPORT Observed: 08/28/2018 Status: F Source: [place] 7:27 PM [facility] REPOSITORY [facility] Medical Records Department [address] [place] [address] Operative Report 08/28/18 0804 MR#: [id number] Acct: [id number] Name: VITOR ALBERTO Rep #: [id number] : 1960 58 From: Jose Angel Luke DPM PCP: Froilan Rosenthal MD, Chi Status: [facility] Y Location: [facility] Report of Operation Date of Procedure: 08/28/18 Pre-Operative Diagnosis: Charcot Neuroarthropathy Left Foot/Ankle Post-Operative Diagnosis: Same Surgery/Procedure Performed:: Bone biospy of the left talus, calcaneus, tibia and fibula Description of Surgical Findings:: Soft bone of the talus, calcaneus and distal tibia at biopsy sites, left foot/ankle director semiconductor: None Type of Anesthesia:: Local MAC Specimen's [...] Betadine soaked Adaptic, 4x4 gauze, Kerlix and berenice bandage. The patient tolerated the above procedure [...] reviewed with patient and orders placed for correction. Keep left foot/ankle protected in CAM Walker. No weightbearing left foot/ankle. She is to follow up within 1 week or sooner if needed. Grafts/Implants Used: None - Complications None 08/28/181926 <Electronically signed by Jose Angel Luke DPM> Date Jose Angel Luke DPM CC: Jose Angel Luke DPM; Froilan Rosenthal MD Signed DISCHARGE INSTRUCTION Observed: 08/28/2018 Status: F Source: [place] 8:14 AM [facility] REPOSITORY [facility] Medical Records Department [address] [place] [address] Instructions for Home/Discharge Instructions 08/28/18 0810 MR#: [id number] Acct: [id number] Name: VITOR ALBERTO Rep #: [id number] : 1960 58 From: Jose Angel Luke [...] sites with betadine solution and apply overlying gauze/berenice dressing. Additional Instructions: Keep foot protected in CAM Walker boot, I do not think her custom QAWALANGIN Walker boot will fit properly at this [...] When: within 1 week, sooner if needed 08/28/18 0814 <Electronically signed by Jose Angel Luke DPM> Date Jose Angel Luke DPM CC: Froilan Rosenthal MD ANKLE MIN 3 VIEWS Observed: 08/28/2018 Status: F Source: [place] 8:10 AM [facility] REPOSITORY [facility] Imaging Services [address] [place] [address] 19952 Ankle min 3 Views MR#: [id number] Acct: [id number] Name: VITOR ALBERTO Rep #: [id number] : 1960 F 58 From: Aneesh Mcnamara MD PCP: Froilan Rosenthal MD, Chi Status: [facility] Study: Ankle min 3 Views Date of Exam: 08/28/18 Exam# [id number] Ordering Dr: Jose Angel Luke DPM STUDY: [...] Jose Angel Luke DPM; Froilan Rosenthal MD Certified Phlebotomist: Signed FOOT MIN 3 VIEWS Observed: 08/28/2018 Status: F Source: [place] 8:10 AM [facility] REPOSITORY [facility] Imaging Services [address] [place] [address] 91069 Foot min 3 Views MR#: [id number] Acct: [id number] Name: VITOR ALBERTO Rep #: [id number] : 1960 F 58 From: Aneesh Mcnamara MD PCP: Froilan Rosenthal MD, Chi Status: [facility] Study: Foot min 3 Views Date of Exam: 08/28/18 Exam# [id number] Ordering Dr: Jose Angel Luke DPM STUDY: [...] Jose Angel Luke DPM; Froilan Rosenthal MD Certified Phlebotomist: Signed Observed: 08/28/2018 Status: F Source: [place] CULTURE, DEEP WOUND 7:30 AM [facility] REPOSITORY Order Date: 05/31/17 Has pt arrived? Y Comments: LEFT FOOT/ANKLE- TALUS BONE Gram Stain Gram Stain No organisms seen Wound Culture No growth aerobically. Cult, Anaerobic No growth in 5 days. Performed By: #### M100.1500 #### [facility] [place], [place], [id number] Observed: 08/28/2018 Status: F Source: [place] CULTURE, DEEP WOUND 7:30 AM [facility] REPOSITORY Order Date: 05/31/17 Has pt arrived? Y Comments: LEFT FOOT/ANKLE- CALCANEUS BONE Gram Stain Gram Stain No organisms seen Wound Culture No growth aerobically. Cult, Anaerobic No growth in 5 days. Performed By: #### M100.1500 #### [facility] [address] [place], [address] Observed: 08/28/2018 Status: F Source: [place] CULTURE, DEEP WOUND 7:30 AM [facility] REPOSITORY Order Date: 05/31/17 Has pt arrived? Y Comments: LEFT FOOT/ANKLE-TIBIA BONE Gram Stain Gram Stain No organisms seen Wound Culture No growth aerobically. Cult, Anaerobic No growth in 5 days. Performed By: #### M100.1500 #### [facility] [address] [place], [place], [address] Observed: 08/28/2018 Status: F Source: [place] CULTURE, DEEP WOUND 7:30 AM [facility] REPOSITORY Order Date: 05/31/17 Has pt arrived? Y Comments: LEFT FOOT/ANKLE- FIBULA BONE Gram Stain Gram Stain No organisms seen Wound Culture No growth aerobically. Cult, Anaerobic No growth in 5 days. Performed By: #### M100.1500 #### [facility] [address] [facility] [place], [address] [employer] Observed: 08/28/2018 Status: F Source: [place] CULT/SMEAR [id number] 7:30 AM [facility] REPOSITORY Comments: LEFT FOOT/ANKLE- TALUS BONE Has pt arrived? Y AFB Smear/Fluor TESTING PERFORMED AT [facility]. ORIGINAL REPORT ON FILE IN LAB CONTAINS ADDITIONAL TEST SITE INFORMATION. Smear, Acid Fast Tissue Grinding Smear: Negative AF[employer] Cult TESTING PERFORMED AT [facility]. ORIGINAL REPORT ON FILE IN LAB CONTAINS ADDITIONAL TEST SITE INFORMATION. Culture, Acid Fast NO ACID-FAST BACILLI ISOLATED AFTER 6 WEEKS. Performed By: #### M100.3880 #### [facility] [address] [place], [place] [address] [place], [address] Observed: 08/28/2018 Status: F Source: [place] CULTURE, FUNGUS W/ 7:30 AM [facility] [id number] REPOSITORY Comments: LEFT FOOT/ANKLE- TALUS BONE Has pt arrived? Y Is this test to exclude patient from TB Isolation? N Cu,[id number] TESTING PERFORMED AT [facility]. ORIGINAL REPORT ON FILE IN LAB CONTAINS ADDITIONAL TEST SITE INFORMATION. CUF No yeast or mold isolated after [address] TESTING PERFORMED AT [facility]. ORIGINAL REPORT ON FILE IN LAB CONTAINS ADDITIONAL TEST SITE INFORMATION. Fungus Stain No yeast or mold observed. Performed By: #### M600.1900 #### [facility] [address] [place], [address] [employer] Observed: 08/28/2018 Status: F Source: [place] CULT/SMEAR [id number] 7:30 AM [facility] REPOSITORY Comments: LEFT FOOT/ANKLE- CALCANEUS BONE Has pt arrived? Y AFB Smear/Fluor TESTING PERFORMED AT [facility]. ORIGINAL REPORT ON FILE IN LAB CONTAINS ADDITIONAL TEST SITE INFORMATION. Smear, Acid Fast Tissue Grinding Smear: Negative AFB Cult TESTING PERFORMED AT [facility]. ORIGINAL REPORT ON FILE IN LAB CONTAINS ADDITIONAL TEST SITE INFORMATION. Culture, Acid Fast NO ACID-FAST BACILLI ISOLATED AFTER 6 WEEKS. Performed By: #### M100.3880 #### [facility] [address] [place], [address] Observed: 08/28/2018 Status: F Source: [place] W/ 7:30 [facility] [id number] REPOSITORY Comments: LEFT FOOT/ANKLE- CALCANEUS BONE Has pt arrived? Y Is this test to exclude patient from TB Isolation? N Cu,[id number] TESTING PERFORMED AT [facility]. ORIGINAL REPORT ON FILE IN LAB CONTAINS ADDITIONAL TEST SITE INFORMATION. CUF No yeast or mold isolated after [address] [facility]. ORIGINAL REPORT ON FILE IN LAB CONTAINS ADDITIONAL TEST SITE INFORMATION. Fungus Stain No yeast or mold observed. Performed By: #### M600.1900 #### [place] [facility] [address] [place], [address] [employer] Observed: 08/28/2018 Status: F Source: [place] CULT/SMEAR [id number] 7:30 AM [facility] REPOSITORY Comments: LEFT FOOT/ANKLE- TIBIA BONE Has pt arrived? Y Is this test to exclude patient from TB Isolation? N AFB Smear/Fluor TESTING PERFORMED AT [facility]. ORIGINAL REPORT ON FILE IN LAB CONTAINS ADDITIONAL TEST SITE INFORMATION. Smear, Acid Fast Tissue Grinding Smear: Negative AFB Cult TESTING PERFORMED AT [facility]. ORIGINAL REPORT ON FILE IN LAB CONTAINS ADDITIONAL TEST SITE INFORMATION. Culture, Acid Fast NO ACID-FAST BACILLI ISOLATED AFTER 6 WEEKS. Performed By: #### M100.3880, .1899 #### [facility] [address] [place], [address] Observed: 08/28/2018 Status: F Source: [place] W/ 7:30 [facility] [id number] REPOSITORY Comments: LEFT FOOT/ANKLE- TIBIA BONE Has pt arrived? Y Is this test to exclude patient from TB Isolation? N Jean,[id number] TESTING PERFORMED AT [facility]. ORIGINAL REPORT ON FILE IN LAB CONTAINS ADDITIONAL TEST SITE INFORMATION. CUF No yeast or mold isolated after [address] TESTING PERFORMED AT [facility]. ORIGINAL REPORT ON FILE IN LAB CONTAINS ADDITIONAL TEST SITE INFORMATION. Fungus Stain No yeast or mold observed. Performed By: #### M100.3880, .1899 #### [facility] [address] [place], [address] [employer] Observed: 08/28/2018 Status: F Source: [place] CULT/SMEAR [id number] 7:30 AM [facility] REPOSITORY Comments: LEFT FOOT/ANKLE-FIBULA BONE Has pt arrived? Y Comments: LEFT FOOT/ANKLE- FIBULA BONE Is this test to exclude patient from TB Isolation? N AFB Smear/Fluor TESTING PERFORMED AT [facility]. ORIGINAL REPORT ON FILE IN LAB CONTAINS ADDITIONAL TEST SITE INFORMATION. Smear, Acid Fast Tissue Grinding Smear: Negative AFB Cult TESTING PERFORMED AT [facility]. ORIGINAL REPORT ON FILE IN LAB CONTAINS ADDITIONAL TEST SITE INFORMATION. Culture, Acid Fast NO ACID-FAST BACILLI ISOLATED AFTER 6 WEEKS. Performed By: #### M100.3880, M600.1900 #### [facility] [address] [place], [address] Observed: 08/28/2018 Status: F Source: [place]AN[place] FALGUNI, FUNGUS W/ 7:30 AM [facility] [id number] REPOSITORY Comments: LEFT FOOT/ANKLE-FIBULA BONE Has pt arrived? Y Comments: LEFT FOOT/ANKLE- FIBULA BONE Is this test to exclude patient from TB Isolation? N Cu,[id number] [facility]. ORIGINAL REPORT ON FILE IN LAB CONTAINS ADDITIONAL TEST SITE INFORMATION. CUF No yeast or mold isolated after [address] TESTING PERFORMED AT [facility]. ORIGINAL REPORT ON FILE IN LAB CONTAINS ADDITIONAL TEST SITE INFORMATION. Fungus Stain No yeast or mold observed. Performed By: #### M100.3880, M600.1900 #### [facility] [address] [place] [address]. [place], [address] BEDSIDE GLUCOSE Collected: 08/28/2018 Status: F Source: [place] 6:31 AM [facility] REPOSITORY TYPE CODE TESTS RESULT OUT OF REFERENCE UNITS RANGE LAB L501.080 70-110 mg/dL High BEDSIDE GLU 129 Result Comment: MANAGEMENT OF PATIENT CARE PER NURSING PROTOCOL Performed By: #### L501.080 #### [facility] Point of Care [address] [place] [address]. [place], [place] [address] FOOT MIN 3 VIEWS Observed: 08/28/2018 Status: F Source: [place] 12:09 AM [facility] REPOSITORY [facility] Imaging Services [address] [place] [address] 27005 Foot min 3 Views MR#: [id number] Acct: [id number] Name: VTIOR ALBERTO Rep #: [id number] : 1960 F 58 From: Aneesh Mcnamara MD PCP: Froilan Rosenthal MD, Chi Status: [facility] Study: Foot min 3 Views Date of Exam: 08/28/18 Exam# [id number] Ordering Dr: Jose Angel Luke DPM STUDY: [...] Jose Angel Luke DPM; Froilan Rosenthal MD Certified Phlebotomist: Signed BONE (FX/NONFRACTURE) Observed: 08/28/2018 Status: F Source: [place] 12:00 AM [facility] REPOSITORY Patient: VITOR ALBERTO : 1960 (58/F) Acct Num: [id number] Phys: Jose Angel Luke DPM Unit Num: [id number] Loc: [facility] Specimen: [id number] Received: 08/28/18 - 1105 Spec Type: Bone [...] submitted in one cassette after decalcification. / CARRIE:margarita 08/28/18 TC:5 CPT: 66117 x4, 52657 x4 HEADER OPERATION: Bone biopsy foot PRE-OP [...] piece of soft tissue with reactive changes. CARRIE:margarita 09/03/18 Signed Arturo Lua 09/03/18 <signature on file> Performed By: #### VANESSA #### [facility] [address] [place] [address] [place], [address] EXTREMITY LOWER Observed: 08/06/2018 Status: F Source: [place] WITHOUT CONTRA 9:47 AM [facility] REPOSITORY [facility] Imaging Services [address] [place] [address] Extremity Lower without Contra MR#: [id number] Acct: [id number] Name: VITOR ALBERTO Rep #: [id number] : 1960 F 58 From: Fazal Patel MD PCP: Galo ROBERTS,Froilan Andre Status: REG CLI Study: Extremity Lower without Contra Date of Exam: 08/06/18 Exam# [id number] Ordering Dr: Jose Angel Luke DPM STUDY: CT LOWER EXTREMITY WITHOUT CONTRAST, LEFT. REASON FOR EXAM: Female, 58 years old. Charcot neuropathy, MKariD. dilatation of the 4th and 5th toes [...] cannot be entirely excluded. Electronically Signed: Fazal Patel, at 13:00 EDT Tel , Service support , CC: JoseA ngel Luke DPM; Froilan Rosenthal MD Certified Phlebotomist: Signed DISCHARGE SUMMARY Observed: 06/21/2018 Status: F Source: [place] 5:57 PM [facility] REPOSITORY [facility] Medical Records Department [address] [place] [address] Discharge Summary 06/20/18 1419 MR#: [id number] Acct: [id number] Name: VITOR ALBERTO Rep #: [id number] : 1960 58 From: Hien Jacobs MD PCP: Froilan Rosenthal MD, Chi Status: DIS IN Y [place] [facility] [id number] Discharge Date and Diagnosis Date of Admission: [...] to current left Charcot foot, discharged to [facility] nursing facility. Discharge Diet: Low fat/ Low Cholesterol, 2000 [...] in: within 2 weeks of discharge from [place] Please Follow Up With: Jose Angel Luke DPM When: within 1 week Disposition: [facility] facility Minutes spent on discharge:: 40 Patient Condition:: Stable Medical Necessity - Tobacco Use Smoking Status: Current every day smoker Tobacco Use: Cigarettes Meaningful Use Info Meaningful Use Diagnoses (Choose all that apply): None applicable Code Visit Inpatient E AND M: 43215 Disch Hosp 06/21/18 1757 <Electronically signed by Hien Jacobs MD> Date Hien Jacbos MD Cosigner Signature (if applicable): Date CC: Hien Jacobs MD; Froilan Rosenthal MD Signed TRANSFER TO [facility] Observed: 06/20/2018 Status: F Source: [facility] 2:13 PM [facility] REPOSITORY [facility] Medical Records Department [address] [place] [address] Transfer to [facility] Care MR#: [id number] Acct: [id number] Name: VITOR ALBERTO Rep #: [id number] : 1960 58 From: Hien Jacobs MD PCP: Froilan Rosenthal MD, Chi Status: ADM IN VITOR ALBERTO (Patient) (Health Ins. Claim No.) (Day of Discharge to Facility) Certification of patient admission REQUIRED AT TIME OF ADMISSION. I CERTIFY THAT POST-HOSPITAL ECF SERVICES ARE REQUIRED TO BE GIVEN ON AN IN-PATIENT BASIS BECAUSE OF THE ABOVE NAMED PATIENT'S NEED FOR LONG-TERM CARE ON A CONTINUING BASIS FOR THE CONDITION(S) FOR WHICH HE/SHE WAS RECEIVING IN-PATIENT HOSPITAL SERVICES PRIOR TO HIS/HER TRANSFER TO THE F. 06/20/18 1413 <Electronically signed by Hien Jacobs MD> Date Hien Jacobs MD - Diet 06/15/18 17:41 Diet: Calorie controlled diet Food consistency:: Regular Liquid Consistency:: Regular/Thin Type of Dietary Supplement:: Martha (Harmon) - Routine Orders/Code Status Routine Lab Work: [...] in: within 2 weeks of discharge from [place] Please Follow Up With: Jose Angel Luke DPM When: within 1 week 06/20/18 1413 <Electronically signed by Hien Jacobs MD> Date Hien Jacobs MD CC: Jose Angel Luke DPM; Joey Pagan MD; Froilan Rosenthal MD Signed BEDSIDE GLUCOSE Collected: 06/20/2018 Status: F Source: [place] 12:17 PM [facility] REPOSITORY TYPE CODE TESTS RESULT OUT OF REFERENCE UNITS RANGE LAB L501.080 70-110 mg/dL High BEDSIDE GLU 233 Result Comment: MANAGEMENT OF PATIENT CARE PER NURSING PROTOCOL Performed By: #### L501.080 #### [facility] Point of Care [address] [place] [address] BEDSIDE GLUCOSE Collected: 06/20/2018 Status: F Source: [place] 7:41 AM [facility] REPOSITORY TYPE CODE TESTS RESULT OUT OF REFERENCE UNITS RANGE LAB L501.080 70-110 mg/dL High BEDSIDE GLU 176 Result Comment: MANAGEMENT OF PATIENT CARE PER NURSING PROTOCOL Performed By: #### L501.080 #### [facility] Point of Care [address] [place] [address] BEDSIDE GLUCOSE Collected: 06/19/2018 Status: F Source: [place] 9:27 PM [facility] REPOSITORY TYPE CODE TESTS RESULT OUT OF REFERENCE UNITS RANGE LAB L501.080 70-110 mg/dL High BEDSIDE GLU 278 Result Comment: MANAGEMENT OF PATIENT CARE PER NURSING PROTOCOL Performed By: #### L501.080 #### [facility] Point of Care [address] [place] [address] BEDSIDE GLUCOSE Collected: 06/19/2018 Status: F Source: [place] 5:11 PM [facility] REPOSITORY TYPE CODE TESTS RESULT OUT OF REFERENCE UNITS RANGE LAB L501.080 70-110 mg/dL High BEDSIDE GLU 213 Result Comment: MANAGEMENT OF PATIENT CARE PER NURSING PROTOCOL Performed By: #### L501.080 #### [facility] Point of Care [address] [place] [address] BEDSIDE GLUCOSE Collected: 06/19/2018 Status: F Source: [place] 12:18 PM [facility] REPOSITORY TYPE CODE TESTS RESULT OUT OF REFERENCE UNITS RANGE LAB L501.080 70-110 mg/dL High BEDSIDE GLU 203 Result Comment: MANAGEMENT OF PATIENT CARE PER NURSING PROTOCOL Performed By: #### L501.080 #### [facility] Point of Care [address] [place] [address] BEDSIDE GLUCOSE Collected: 06/19/2018 Status: F Source: [place]AN[place] 6:35 AM [facility] REPOSITORY TYPE CODE TESTS RESULT OUT OF REFERENCE UNITS RANGE LAB L501.080 70-110 mg/dL High BEDSIDE GLU 219 Result Comment: MANAGEMENT OF PATIENT CARE PER NURSING PROTOCOL Performed By: #### L501.080 #### [facility] Point of Care [address] [place] [address] BEDSIDE GLUCOSE Collected: 06/18/2018 Status: F Source: [place] 9:37 PM [facility] REPOSITORY TYPE CODE TESTS RESULT OUT OF REFERENCE UNITS RANGE LAB L501.080 70-110 mg/dL High BEDSIDE GLU 227 Result Comment: MANAGEMENT OF PATIENT CARE PER NURSING PROTOCOL Performed By: #### L501.080 #### [facility] Point of Care [address] [place] [address] BEDSIDE GLUCOSE Collected: 06/18/2018 Status: F Source: [place] 4:36 PM [facility] REPOSITORY TYPE CODE TESTS RESULT OUT OF REFERENCE UNITS RANGE LAB L501.080 70-110 mg/dL High BEDSIDE GLU 228 Result Comment: MANAGEMENT OF PATIENT CARE PER NURSING PROTOCOL Performed By: #### L501.080 #### [facility] Point of Care [address] [place] [address] BEDSIDE GLUCOSE Collected: 06/18/2018 Status: F Source: [place] 11:48 AM [facility] REPOSITORY TYPE CODE TESTS RESULT OUT OF REFERENCE UNITS RANGE LAB L501.080 70-110 mg/dL High BEDSIDE GLU 157 Result Comment: MANAGEMENT OF PATIENT CARE PER NURSING PROTOCOL Performed By: #### L501.080 #### [facility] Point of Care [address] [place] [address] CONSULTATION Observed: 06/18/2018 Status: F Source: [place] 11:32 AM [facility] REPOSITORY [facility] Medical Records [place] [address] Consultation 06/18/18 1128 MR#: [id number] Acct: [id number] Name: VITOR ALBERTO Rep #: [id number] : 1960 58 From: Joey Pagan MD PCP: Galo ROBERTS,Froilan Andre Status: ADM IN Y Location[place] [facility] [id number] Problem List (1) Charcot's joint, left ankle and foot Status: Acute Reason for Consult: charcot foot Consulted by: Dr. Covington History of Present Illness: The patient is a 58 year old F with Charcot foot who presented with L foot fracture after slipping around end of March. Over past 2 weeks, had increased pain/redness/swelling. Went to ED 06/11, started on keflex, now redness resolved. No [...] 06/18/2018 Status: F Source: HANNAH 8:18 AM [facility] REPOSITORY TYPE CODE TESTS RESULT OUT OF RANGE REFERENCE UNITS LAB L501.080 70-110 mg/dL Normal BEDSIDE GLU 76 Result Comment: MANAGEMENT OF PATIENT CARE PER NURSING PROTOCOL Performed By: #### L501.080 #### [facility] Point [place] [address] BASIC METABOLIC Collected: 06/18/2018 Status: F Source: [place] PROFILE (BMP) 5:15 AM [facility] REPOSITORY TYPE CODE TESTS RESULT OUT OF [...] GAP 7 Performed By: #### L500.2500 #### [facility] [address] [place], [address] BEDSIDE GLUCOSE Collected: 06/17/2018 Status: F Source: [place] 11:41 PM [facility] REPOSITORY TYPE CODE TESTS RESULT OUT OF REFERENCE UNITS RANGE LAB L501.080 70-110 mg/dL High BEDSIDE GLU 185 Result Comment: MANAGEMENT OF PATIENT CARE PER NURSING PROTOCOL Performed By: #### L501.080 #### [facility] Point of Care [address] [place] [address] BEDSIDE GLUCOSE Collected: 06/17/2018 Status: F Source: [place] 9:25 PM [facility] REPOSITORY TYPE CODE TESTS RESULT OUT OF REFERENCE UNITS RANGE LAB L501.080 70-110 mg/dL High BEDSIDE GLU 233 Result Comment: Insulin Given MANAGEMENT OF PATIENT CARE PER NURSING PROTOCOL Performed By: #### L501.080 #### [facility] Point of Care [address] [place] [address] BEDSIDE GLUCOSE Collected: 06/17/2018 Status: F Source: [place] 4:24 PM [facility] REPOSITORY TYPE CODE TESTS RESULT OUT OF REFERENCE UNITS RANGE LAB L501.080 70-110 mg/dL High BEDSIDE GLU 151 Result Comment: MANAGEMENT OF PATIENT CARE PER NURSING PROTOCOL Performed By: #### L501.080 #### [facility] Point of Care [address] [place] [address] BEDSIDE GLUCOSE Collected: 06/17/2018 Status: F Source: [place] 12:34 PM [facility] REPOSITORY TYPE CODE TESTS RESULT OUT OF REFERENCE UNITS RANGE LAB L501.080 70-110 mg/dL High BEDSIDE GLU 194 Result Comment: MANAGEMENT OF PATIENT CARE PER NURSING PROTOCOL Performed By: #### L501.080 #### [facility] Point of Care [address] [place] [address] BEDSIDE GLUCOSE Collected: 06/17/2018 Status: F Source: [place] 10:40 AM [facility] REPOSITORY TYPE CODE TESTS RESULT OUT OF REFERENCE UNITS RANGE LAB L501.080 70-110 mg/dL High BEDSIDE GLU 194 Result Comment: MANAGEMENT OF PATIENT CARE PER NURSING PROTOCOL Performed By: #### L501.080 #### [facility] Point of Care [address] [place], [place] [address] LIPID PROFILE Collected: 06/17/2018 Status: F Source: [place] 5:15 AM [facility] REPOSITORY TYPE CODE TESTS RESULT OUT OF [...] VLDL 34 Performed By: #### L500.4100 #### [facility] [address] [place], [place], [address] BEDSIDE GLUCOSE Collected: 06/16/2018 Status: F Source: [place] 9:24 PM [facility] REPOSITORY TYPE CODE TESTS RESULT OUT OF REFERENCE UNITS RANGE LAB L501.080 70-110 mg/dL High BEDSIDE GLU 223 Result Comment: MANAGEMENT OF PATIENT CARE PER NURSING PROTOCOL Performed By: #### L501.080 #### [facility] Point of Care [address] [place], [place] [address] BEDSIDE GLUCOSE Collected: 06/16/2018 Status: F Source: [place]AN[place] 4:36 PM [facility] REPOSITORY TYPE CODE TESTS RESULT OUT OF REFERENCE UNITS RANGE LAB L501.080 70-110 mg/dL High BEDSIDE GLU 130 Result Comment: MANAGEMENT OF PATIENT CARE PER NURSING PROTOCOL Performed By: #### L501.080 #### [facility] Point of Care [address] [place] [address] BEDSIDE GLUCOSE Collected: 06/16/2018 Status: F Source: [place] 11:50 AM [facility] REPOSITORY TYPE CODE TESTS RESULT OUT OF REFERENCE UNITS RANGE LAB L501.080 70-110 mg/dL High BEDSIDE GLU 145 Result Comment: MANAGEMENT OF PATIENT CARE PER NURSING PROTOCOL Performed By: #### L501.080 #### [facility] Point of Care [address] [place] [address] BEDSIDE GLUCOSE Collected: 06/16/2018 Status: F Source: [place] 7:09 AM [facility] REPOSITORY TYPE CODE TESTS RESULT OUT OF RANGE REFERENCE UNITS LAB L501.080 70-110 mg/dL Normal BEDSIDE GLU 95 Result Comment: MANAGEMENT OF PATIENT CARE PER NURSING PROTOCOL Performed By: #### L501.080 #### [facility] Point of Care [address] [place] [address] MAGNESIUM Collected: 06/16/2018 Status: F Source: [place] 6:19 AM [facility] REPOSITORY TYPE CODE TESTS RESULT OUT OF RANGE REFERENCE UNITS LAB L501.5200 1.6-2.6 mg/dL Normal MG 1.6 Performed By: #### L501.5200, L501.5600 #### [facility] [place], [address] POTASSIUM Collected: 06/16/2018 Status: F Source: [place] 6:19 AM [facility] REPOSITORY TYPE CODE TESTS RESULT OUT OF RANGE REFERENCE UNITS LAB L501.5600 3.5-5.1 mmol/L Normal K 3.6 Performed By: #### L501.5200, L501.5600 #### [facility] [address] [place], [address] HEMOGLOBIN A1C Collected: 06/16/2018 Status: F Source: [place] 6:19 AM [facility] REPOSITORY TYPE CODE TESTS RESULT OUT OF RANGE REFERENCE UNITS LAB L501.9985 4.2-6.3 % High HGB A1C 7.2 Performed By: #### L501.9985 #### [facility] [address] [place], [address] BEDSIDE GLUCOSE Collected: 06/15/2018 Status: F Source: [place] 9:59 PM [facility] REPOSITORY TYPE CODE TESTS RESULT OUT OF REFERENCE UNITS RANGE LAB L501.080 70-110 mg/dL High BEDSIDE GLU 194 Result Comment: MANAGEMENT OF PATIENT CARE PER NURSING PROTOCOL Performed By: #### L501.080 #### [facility] Point of Care [address] [place] [address] HISTORY AND PHYSICAL Observed: 06/15/2018 Status: F Source: TEKONSHA EXAM 7:15 PM [facility] REPOSITORY [facility] Medical Records Department [address] [facility] [place] [address] History and Physical 06/15/18 1842 MR#: [id number] Acct: [id number] Name: VITOR ALBERTO Rep #: [id number] : 1960 58 From: Ferdinand Liu MD PCP: Galo ROBERTS,Froilan Andre Status: ADM IN Y Location: LA3 [id number] Problem List (1) Complicated fracture of left [...] metatarsals. Psychiatric History: No pertinent psych hx PATIENT ACCOUNTS MANAGER History: No pertinent PATIENT ACCOUNTS MANAGER history Smoking Status: Current every day [...] ankle and foot. It is covered with Berenice wrap bandage. Neurological: Cranial nerves II-XII grossly intact Psych/Mental Status: Normal Affect, Appropriate Vital Signs Temp Pulse Resp BP Pulse Ox 98.9 F 85 18 153/58 H 99 06/15/18 17:39 06/15/18 17:39 06/15/18 17:39 06/15/18 17:39 06/15/18 17:39 Oxygen Delivery [...] on the floor at the request of Welcome Hostess Dr. Luke. Patient has history of diabetic [...] diabetic neuropathy: Patient is admitted directly on [facility] floor. Pain control. Nonweightbearing. PT and OT and test case developer consult for possible SNF placement for continued [...] neuropathy with Charcot joint: Blood sugar in BMP is 193. A1c tomorrow a.m. Accu-Cheks before [...] 41.7 L, Lymph % (Auto) 46.7 H, Stark % (Auto) 7.4, Eos % (Auto) 3.7, [...] Ratio 0.5 L Total time spent in rsao-dz-[id number] encounter with history taking, physical exam, labs review, review of imaging and discussion of assessment and plan with the patient: 50 minutes This note was generated with [employer] dictation software. Every effort was made to ensure accuracy, however computerized sap senior developer mistakes may persist. Code Visit Inpatient E AND M: 57065 Init Hosp L3 06/15/181914 <Electronically signed by Ferdinand Liu MD> Date Ferdinand Liu MD Cosign Signature: Date (if applicable) CC: Ferdinand Liu MD; Froilan Rosenthal MD Signed ANKLE MIN 3 VIEWS Observed: 06/15/2018 Status: F Source: TEKONSHA 7:15 PM [facility] REPOSITORY [facility] Imaging Services [address] [place] [address] Ankle min 3 Views MR#: [id number] Acct: [id number] Name: VITOR ALBERTO Rep #: [id number] : 1960 F 58 From: Clyde Jones DO PCP: Froilan Rosenthal MD, Chi Status: ADM IN Study: Ankle min 3 Views Date of Exam: 06/15/18 Exam# [id number] Ordering Dr: Ferdinand Liu MD STUDY: X-RAY [...] CC: Ferdinand Liu MD; Froilan Rosenthal MD Certified Phlebotomist: Signed FOOT MIN 3 VIEWS Observed: 06/15/2018 Status: F Source: TEKONSHA 7:15 PM [facility] REPOSITORY [facility] Imaging Services [address] [place] [address] Foot min 3 Views MR#: [id number] Acct: [id number] Name: VITOR ALBERTO Rep #: [id number] : 1960 F 58 From: Clyde Jones DO PCP: Froilan Rosenthal MD, Chi Status: ADM IN Study: Foot min 3 Views Date of Exam: 06/15/18 Exam# [id number] Ordering Dr: Ferdinand Liu MD STUDY: X-RAY [...] CC: Ferdinand Liu MD; Froilan Rosenthal MD Certified Phlebotomist: Signed ERYTHROCYTE SED RATE Collected: 06/15/2018 Status: F Source: TEK[place]SHA 6:14 PM [facility] REPOSITORY TYPE CODE TESTS RESULT OUT OF RANGE REFERENCE UNITS LAB L102.0000 0-30 mm/hr Normal SED RATE 21 Performed By: #### L101.9900 #### [facility] [address] [place], [address] CBC W/DIFF, AUTOMATED Collected: 06/15/2018 Status: F Source: TEKONSHA 6:14 PM [facility] REPOSITORY TYPE CODE TESTS RESULT OUT OF [...] Lymph 2.03 Performed By: #### L100.0100 #### [facility] [place], [address] COMPREHENSIVE METABOLIC Collected: 06/15/2018 Status: F [facility] 6[facility]14 PM [facility] REPOSITORY TYPE CODE TESTS RESULT OUT OF [...] GAP 10 Performed By: #### L500.4050 #### [facility] [address] [place], [address] CRP Collected: 06/15/2018 Status: F Source: TEK[place] 6:14 PM [facility] REPOSITORY TYPE CODE TESTS RESULT OUT OF RANGE REFERENCE UNITS LAB L501.6710 0.0-3.0 mg/L High 10.20 C-REACTIVE PROT Result Comment: C-Reactive Protein (CRP) provides useful information for the diagnosis, therapy and monitoring of inflammatory processes and associated diseases. For the evaluation of Relative Risk for Cardiovascular Disease, a High Sensitivity CRP (HSCRP) should be ordered. Performed By: #### L501.6710 #### [facility] [address] [place], [address] VENOUS DUPLEX LOWER Observed: 06/11/2018 Status: F Source: [place] EXTREMITY 4:18 PM [facility] REPOSITORY [facility] Cardiovascular Services [address] [place] [address] Venous Duplex US, Unilateral 06/11/18 1249 MR#: [id number] Acct: [id number] Name: VITOR ALBERTO Rep #: [id number] : 1960 58 From: Seamus Hernandez MD [...] appears patent and compressible segmentally. Ordering Physician: Eriak Jara Referring Physician: Froilan Rosenthal Chi Performed By: Akanksha Thomas RVT 06/11/18 1617 Date Seamus Hernandez MD CC: Erika Jara MD; Froilan Rosenthal MD Date Dictated: 06/11/18 1249 Date Transcribed: 06/11/18 1617 Certified Phlebotomist: Signed EMERGENCY DEPARTMENT Observed: 06/11/2018 Status: F Source: TEK[place]SHA SUMMARY 3:41 PM [facility] REPOSITORY [facility] Medical Records Department [address] [place] [address] Emergency Department Summary 06/11/18 1234 MR#: [id number] Acct: [id number] Name: VITOR ALBERTO Rep #: [id number] : 1960 58 From: Erika Jara MD [...] extremity cellulitis This note was generated with XIPWIREation software. It may contain incorrect words, spelling, [...] your Primary Care Provider. Call [facility] ([phone]) or report to the closest Emergency Room. Call 911 if necessary. 06/11/18 1547 <Electronically signed by Erika Jara MD> Date Erika Jara MD Cosigner Signature (If Indicated): Date CC: Froilan Rosenthal MD DISCHARGE INSTRUCTION Observed: 06/11/2018 Status: F Source: HANNAH 3:37 PM [facility] REPOSITORY [facility] Medical Records Department [address] [place] [address] Discharge Instruction 06/11/18 1536 MR#: [id number] Acct: [id number] Name: VITOR ALBERTO Rep #: [id number] : 1960 58 From: Erika Jara MD PCP: Galo ROBERTS,Froilan Andre Status: REG ER ED Disposition - Plan [...] your Primary Care Provider. Call [facility] ([phone]) or report to the closest Emergency Room. Call 911 if necessary. 06/11/18 1537 <Electronically signed by Erika Jara MD> Date Erika Jara MD Cosigner Signature (If Indicated): Date CC: Froilan Rosenthal MD CBC W/DIFF, AUTOMATED Collected: 06/11/2018 Status: F Source: [place] 12:42 PM [facility] REPOSITORY TYPE CODE TESTS RESULT OUT OF [...] 1.62 Performed By: #### L100.0100, L101.9900 #### [facility] [address] [place], [place], [address] ERYTHROCYTE SED RATE Collected: 06/11/2018 Status: F Source: [place] 12:42 PM [facility] REPOSITORY TYPE CODE TESTS RESULT OUT OF RANGE REFERENCE UNITS LAB L102.0000 0-30 mm/hr Normal SED RATE 30 Performed By: #### L100.0100, L101.9900 #### [facility] [address] [place], [address] BASIC METABOLIC Collected: 06/11/2018 Status: F Source: [place] PROFILE (BMP) 12:42 PM [facility] REPOSITORY TYPE CODE TESTS RESULT OUT OF [...] 11 Performed By: #### L500.2500, L501.6710 #### [facility] [address] [facility] [place], [address] CRP Collected: 06/11/2018 Status: F Source: [place] 12:42 PM [facility] REPOSITORY TYPE CODE TESTS RESULT OUT OF RANGE REFERENCE UNITS LAB L501.6710 0.0-3.0 mg/L High 40.50 C-REACTIVE PROT Result Comment: C-Reactive Protein (CRP) provides useful information for the diagnosis, therapy and monitoring of inflammatory processes and associated diseases. For the evaluation of Relative Risk for Cardiovascular Disease, a High Sensitivity CRP (HSCRP) should be ordered. Performed By: #### L500.2500, L501.6710 #### [facility] [address] [facility] [place], [address] FOOT MIN 3 VIEWS Observed: 06/11/2018 Status: F Source: [place] 12:30 PM [facility] REPOSITORY [facility] Imaging Services [address] [place] [address] Foot min 3 Views MR#: [id number] Acct: [id number] Name: VITOR ALBERTO Rep #: [id number] : 1960 F 58 From: Aneesh Mcnamara MD PCP: Froilan Rosenthal MD, Chi Status: REG ER Study: Foot min 3 Views Date of Exam: 06/11/18 Exam# [id number] Ordering Dr: Erika Jara MD STUDY: X-RAY [...] CC: Erika Jara MD; Froilan Rosenthal MD Certified Phlebotomist: Signed ANKLE MIN 3 VIEWS Observed: 06/11/2018 Status: F Source: TE[place]SHA 12:30 PM [facility] REPOSITORY [facility] Imaging Services [facility] [place] [address] Ankle min 3 Views MR#: [id number] Acct: [id number] Name: VITOR ALBERTO Rep #: [id number] : 1960 F 58 From: Jakob Hirsch MD PCP: Froilan Rosenthal MD, Chi Status: REG ER Study: Ankle min 3 Views Date of Exam: 06/11/18 Exam# [id number] Ordering Dr: Erika Jara MD STUDY: X-RAY [...] tissue swelling and calcification. Electronically Signed: Jakob Hirsch MD at 14:37 EDT Tel [phone], Service support , CC: Erika Jara MD; Froilan Rosenthal MD Certified Phlebotomist: Signed CARDIOLOGY VISIT Observed: 06/05/2018 Status: F Source: TEKONSHA REPORT 1:52 PM [facility] REPOSITORY [facility] [address] [place] [address]. 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 Accompanied by: Friend Is patient [...] tab PO QDAY 06/04/18 [History Confirmed 06/05/18] [facility] Medical History Chronic pain (Chronic) Abnormal EKG [...] Q6H PRN PRN Moderate Pain (pain Marta Jennifer Danielle Changed scale 4-5) Follow Up +6M [...] COMPREHENSIVE METABOLIC Collected: 05/17/2018 Status: F Source: HANNAH EVE 10:31 AM [facility] REPOSITORY TYPE CODE TESTS RESULT OUT OF [...] 7 Performed By: #### L500.4050, L501.6710 #### [facility] [address] [place], [place], [address] CRP Collected: 05/17/2018 Status: F Source: [place] 10:31 AM [facility] REPOSITORY TYPE CODE TESTS RESULT OUT OF RANGE REFERENCE UNITS LAB L501.6710 0.0-3.0 mg/L High 12.70 C-REACTIVE PROT Result Comment: C-Reactive Protein (CRP) provides useful information for the diagnosis, therapy and monitoring of inflammatory processes and associated diseases. For the evaluation of Relative Risk for Cardiovascular Disease, a High Sensitivity CRP (HSCRP) should be ordered. Performed By: #### L500.4050, L501.6710 #### [facility] [address] [place], [place], [address] ERYTHROCYTE SED RATE Collected: 05/17/2018 Status: F Source: [place] 10:31 AM [facility] REPOSITORY TYPE CODE TESTS RESULT OUT OF RANGE REFERENCE UNITS LAB L102.0000 0-30 mm/hr Normal SED RATE 23 Performed By: #### L101.9900, L100.0100 #### [facility] [address] [place], [place], [address] CBC W/DIFF, AUTOMATED Collected: 05/17/2018 Status: F Source: HAN[place]H 10:31 AM [facility] REPOSITORY TYPE CODE TESTS RESULT OUT OF [...] 2.18 Performed By: #### L101.9900, L100.0100 #### [facility] [address] [place], [place], [address] VITAMIN D,25 HYDROXY Collected: 05/17/2018 Status: F Source: [place]AN[place]H 10:31 AM [facility] REPOSITORY TYPE CODE TESTS RESULT OUT OF REFERENCE UNITS RANGE LAB L506.1000 29.95-100.01 ng/mL Low Vitamin D 5.4 25-OH Result Comment: Vitamin D 25(OH) Status Range Deficiency <20 ng/mL (50nmol/L) Insuffciency 20 - 30 ng/mL (50 - 75 nmol/L) Sufficiency 30 - 100 ng/mL (75 - 250 nmol/L) Toxicity >100 ng/mL (>250 nmol/L) Performed By: #### L506.1000 #### [facility] [address] [facility] [place], [address] LOWER EXT JOINT ONLY Observed: 05/15/2018 Status: F Source: HANNAH (ROUTINE) 9:53 AM [facility] REPOSITORY [facility] Imaging Services [address] [facility] [place] [address] Lower Ext Joint Only (Routine) MR#: [id number] Acct: [id number] Name: VITOR ALBERTO Rep #: [id number] : 1960 F 58 From: Vince Jones MD PCP: Galo ROBERTS,Froilan Andre Status: REG CLI Study: Lower Ext Joint Only (Routine) Date of Exam: 05/15/18 Exam# [id number] Ordering Dr: Jose Angel Luke DPM STUDY: [...] Jose Angel Luke DPM; Froilan Rosenthal MD Certified Phlebotomist: Signed CBC W/DIFF, AUTOMATED Collected: 12/13/2017 Status: F Source: HAN[place]H 3:09 PM [facility] REPOSITORY TYPE CODE TESTS RESULT OUT OF [...] Lymph 2.51 Performed By: #### L100.0100 #### [facility] [address] [place], [place], [address] COMPREHENSIVE METABOLIC Collected: 12/13/2017 Status: F Source: [facility] 3:09 PM [facility] REPOSITORY TYPE CODE TESTS RESULT OUT OF [...] 8 Performed By: #### L500.4050, L501.9520 #### [facility] [address] [facility] [place], [address] THYROID STIM HORMONE Collected: 12/13/2017 Status: F Source: HANNAH (TSH) 3:09 PM [facility] REPOSITORY TYPE CODE TESTS RESULT OUT OF RANGE REFERENCE UNITS LAB L501.9520 0.358-3.74 uIU/mL Normal TSH 0.67 Performed By: #### L500.4050, L501.9520 #### [facility] [address] [place], [address] VITAMIN D,25 HYDROXY Collected: 12/13/2017 Status: F Source: [place] 3:09 PM [facility] REPOSITORY TYPE CODE TESTS RESULT OUT OF REFERENCE UNITS RANGE LAB L506.1000 19.95-100.01 ng/mL Low Vitamin D 4.6 25-OH Result Comment: Vitamin D 25(OH) Status Range Deficiency <20 ng/mL (50nmol/L) Insuffciency 20 - 30 ng/mL (50 - 75 nmol/L) Sufficiency 30 - 100 ng/mL (75 - 250 nmol/L) Toxicity >100 ng/mL (>250 nmol/L) Performed By: #### L506.1000 #### [facility] [address] [place], [address] HEPATITIS C ANTIBODIES Collected: 12/13/2017 Status: F Source: [place] 3:09 PM [facility] REPOSITORY TYPE CODE TESTS RESULT OUT OF RANGE REFERENCE UNITS LAB L3100.0650 0.0-0.9 s/co ratio Normal HEP C AB 0.1 Result Comment: Negative: < 0.8 Indeterminate: 0.8 - 0.9 Positive: > 0.9 The CDC recommends that a positive HCV antibody result be followed up with a HCV Nucleic Acid Amplification test (025170). Performed at: [facility] [id number] Textile Pin Worker: Eliazar Duarte PhD, Phone: [phone] Performed By: #### L3100.0625 #### [facility] (refer to report for specific site) refer to report for address and phone number ALLERGIES ALLERGIES DATE TYPE / CODE NAME / CODE REACTION SEVERITY SOURCE 10/16/2018 Drug Sulfa Itching Unknown [facility] Allergy/4160 (Sulfonamide Hospital 15710(SNOMED Antibiotics)/ Repository CT) [id number](RX NORM) 10/16/2018 Drug clindamycin/F Itching Unknown [facility] Allergy/4160 [id number](N Hospital 13432(SNOMED ORM) Repository CT) 10/16/2018 Drug ondansetron/F Nausea Unknown [facility] Allergy/4160 317329870(N Hospital 52433(SNOMED ORM) Repository CT) ENCOUNTERS ENCOUNTERS ADMIT/DISCHARGE ACCOUNT ADMITTING ENCOUNTER LOCATION SOURCE NUMBER CLASS 11/20/2018 [id number] Ambulatory [place] 5 [facility] ing:OLS.AHA Repository 10/30/2018 [id number] Ambulatory B[facility]:B [place] 4 [facility] Repository 10/29/2018 [id number] Ambulatory BMSBuilding:B [place] 8 [facility] Repository 10/29/2018 [id number] [place], Ambulatory BMSBuilding:B [place] 1 [place] [facility] Repository 10/29/2018 [id number] [place], Ambulatory BMSBuilding:B [place] 4 [place] [facility] Repository 10/29/2018 [id number] [place], Ambulatory BMSBuilding:B [place] 1 [place] [facility] Repository 10/29/2018 [id number] [place], Ambulatory BMSBuilding:B [place] 0 [place] [facility] Repository 10/29/2018 [id number] [place], Ambulatory BMSBuilding:B [place] 9 [place] [facility] Repository 10/29/2018 [id number] [place], Ambulatory BMSBuilding:B [place] 6 [place] [facility] Repository 10/29/2018 [id number] Ambulatory BMSBuilding:W [place] 9 [facility] Repository 10/29/2018/ [id number] [place], Inpatient [place] 9 9 Jose Angel Encounter [facility] ing:CW4Opfi: Repository VA775Cif: 1 10/10/2018 [id number] Ambulatory BMSBuilding:W [place] 1 [facility] Repository 10/10/2018 [id number] Ambulatory [place] 5 [facility] ing:[facility] Repository 09/26/2018 [id number] Ambulatory BMSBuilding:B [place] 2 [facility] Repository 09/26/2018 [id number] Ambulatory [place] 4 [facility] ing:[facility] Repository 09/24/2018 [id number] Ambulatory [place] 9 [facility] ing:[facility] Repository 09/06/2018 [id number] Ambulatory [place] 4 [facility] ing:LAB.NIRU Repository E 08/28/2018/ [id number] Ambulatory [place] 8 3 [facility] ing:SDCRoom: Repository AC02 08/06/2018 [id number] Ambulatory [place] 4 [facility] ing:CT Repository 06/15/2018/ [id number] [place], Inpatient [place] 8 3 Ferdinand Encounter [facility] ing:WL2Gcmu: Repository LD669Nmr: 1 06/15/2018 [id number] [place], Ambulatory BMSBuilding:B [place] 6 Ferdinand [facility] Repository 06/15/2018 [id number] [place], Ambulatory BMSBuilding:B [place] 1 Ferdinand [facility] Repository 06/15/2018 [id number] [place], Ambulatory BMSBuilding:B [place] 1 Ferdinand [facility] Repository 06/15/2018 [id number] [place], Ambulatory BMSBuilding:B [place] 5 [place] [facility] Repository 06/15/2018 [id number] [facility], Ambulatory BMSBuilding:B [place] 8 [place] [facility] Repository 06/15/2018 [id number] [place], Ambulatory BMSBuilding:B [place] 3 Ferdinand [facility] Repository 06/11/2018/ [id number] Emergency [place] 8 6 [facility] ing:ED Repository 06/05/2018/ [id number] Ambulatory BMSBuilding:B [place] 8 7 [facility] Repository 06/04/2018 [id number] Ambulatory BMSBuilding:B [place] 0 [facility] Repository 05/17/2018 [id number] Ambulatory [place] 2 [facility] ing:MTLAB Repository 05/15/2018 [id number] Ambulatory [place] 7 [facility] ing:MRI Repository 12/13/2017 [id number] Ambulatory [place] 1 [facility] ing:POLAB3 Repository PAYERS PAYERS ENCOUNTER GUARANTOR PAYER SUBSCRIBER SOURCE 11/20/2018 VITOR J Primary NOT GIVENUNK [place] MILLERGLENDORA Insurance:SELF PAY [address], Number: Effective Repository [place] [address]Cre: (330) Date:2018-11-20 [id number] (HP) 10/30/2018 VITOR J Primary VITOR J [place]ERGLENDORA Insurance:CARESOURCE MILLERDOB: [place] [address] Policy Number: [id number], [id number] [place]ository [place] [address]Lqa: (330) Date:2018-09-11 [address] () [address]ATTN: [place] [address]GW: 10/30/2018 Secondary NOT GIVENUNK [place] Insurance:SELF PAY [facility] Number: Effective Repository Date:2018-10-30 10/29/2018 VITOR J Primary VITOR J [place] MILLERGLENDORA Insurance:CARESOURCE MILLERDOB: [place] [address] Policy Number: [id number], [id number] [place]ository [place] [address]Rqj: (330) Date:2018-09-11 [address] () [address]ATTN: [place] [address]PA: 10/29/2018 Secondary NOT GIVENUNK [place] Insurance:SELF PAY [facility] Number: Effective Repository Date:2018-10-29 10/29/2018 VITOR J Primary VITOR J [place] MILLERGLENDORA Insurance:CARESOURCE MILLERDOB: [place] [address] Policy Number: [id number] [facility], [id number] [place]ository [place] [address]Yoj: (330) Date:2018-09-11 [address] [phone] () [address]ATTN: [place] [address]NE: 10/29/2018 Secondary NOT GIVENUNK [place] Insurance:SELF PAY [facility] Number: Effective Repository Date:2018-10-29 10/29/2018 VITOR J Primary VITOR J [place]ERGLENDORA Insurance:CARESOURCE MILLERDOB: [place] [address] Policy Number: [id number] Psychiatric Center, [id number] [place]ository [place] [address]Acx: (330) Date:2018-09-11 O [phone] () [address]ATTN: [place] [address]IC: 10/29/2018 Secondary NOT GIVENUNK [place] Insurance:SELF PAY [facility] Number: Effective Repository Date:2018-10-29 10/29/2018 VITOR J Primary VITOR J [place] MILLERGLENDORA Insurance:CARESOURCE MILLERDOB: [place] [address] Policy Number: [id number] Psych[facility], [id number] [place]ository [place] [address]Pkj: (330) Date:2018-09-11 O [phone] () [address]ATTN: [place] [address]QL: 10/29/2018 Secondary NOT GIVENUNK [place] Insurance:SELF PAY [facility] Number: Effective Repository Date:2018-10-29 10/29/2018 VITOR J Primary VITOR J [place]ERGLENDORA Insurance:CARESOURCE MILLERDOB: [place] [address] Policy Number: [id number] Psychiatric Center, [id number] [place]ository [place] [address]Fud: (330) Date:2018-09-11 O [phone] () [address]N: [place] [address]PM: 10/29/2018 Secondary NOT GIVENUNK [place] Insurance:SELF PAY [facility] Number: Effective Repository Date:2018-10-29 10/29/2018 VITOR J Primary VITOR J [place] M[place]ERGLENDORA Insurance:CARESOURCE MILLERDOB: [place] [address] Policy Number: [id number] Psychiatric Center, [id number] [place]ository [place] [address]Sij: (330) Date:2018-09-11 O [phone] () [address]ATTN: [place] [address]QX: 10/29/2018 Secondary NOT GIVENUNK [place] Insurance:SELF PAY [facility] Number: Effective Repository Date:2018-10-29 10/29/2018 VITOR J Primary VITOR J [place]ERGL[place]A Insurance:CARESOURCE MILLERDOB: [place] [address] Policy Number: [id number] Psychiatric Center, [id number] [place]ository [place] [address]Pnb: (330) Date:2018-09-11 O [phone] () [address]ATTN: [place] [address]RR: 10/29/2018 Secondary NOT GIVENUNK [place] Insurance:SELF PAY [facility] Number: Effective Repository Date:2018-10-29 10/29/2018 VITOR J Primary VITOR J [place] MILLERGLENDORA Insurance:CARESOURCE MILLERDOB: [place] [address] Policy Number: [id number] Psychiatric Center, [id number] [place] [address]Xfe: (330) Date:2018-09-11 O [phone] () [address]ATTN: [place] [address]EV: 10/29/2018 Secondary NOT GIVENUNK [place] Insurance:SELF PAY [facility] Number: Effective Repository Date:2018-10-29 10/29/2018 VITOR J Primary VITOR J [place] MILLERGLENDORA Insurance:CARESOURCE MILLERDOB: [place] [address] Policy Number: [id number] Psychiatric Center, [id number] [place] [address]Lpf: ([phone]) Date:2018-09-11 O [phone] () [address]ATTN: [place] [address]OK: 10/29/2018 Secondary NOT GIVENUNK [place] Insurance:SELF PAY [facility] Number: Effective Repository Date:2018-09-11 10/10/2018 VITOR J Primary VITOR J Hannah MILLERGLENDORA Insurance:CARESOURCE MILLERDOB: [place] [address] Policy Number: [id number] Psychiatric Center, [id number] [place] [address]Uvp: ([phone]) Date:2018-06-05 O [phone] () [address]ATTN: [place] [address]CS: 10/10/2018 Secondary NOT GIVENUNK [place] Insurance:SELF PAY [facility] Number: Effective Repository Date:2018-10-10 10/10/2018 VITOR J Primary VITOR J [place] MILLERGLENDORA Insurance:CARESOURCE MILLERDOB: [place] [address] Policy Number: [id number] Psychiatric Center, [id number] [place] [address]Eve: ([phone]) Date:2018-06-05 O [phone] () [address]ATTN: [place] [address]IW: 10/10/2018 Secondary NOT GIVENUNK [place] Insurance:SELF PAY [facility] Number: Effective Repository Date:2018-06-05 09/26/2018 VITOR J Primary VITOR J [place] MILLERGLENDORA Insurance:CARESOURCE MILLERDOB: [place] [address] Policy Number: [id number] Psychiatric Center, [id number] [place]ository [place] [address]Qaf: ([phone]) Date:2018-06-05 O [phone] () [address]ATTN: [place] [address]KM: 09/26/2018 Secondary NOT GIVENUNK [place] Insurance:SELF PAY [facility] Number: Effective Repository Date:2018-09-26 09/26/2018 VITOR J Primary VITOR J [place] MILLERGLENDORA Insurance:CARESOURCE MILLERDOB: [place] [address] Policy Number: [id number] Psychiatric Center, [id number] [place] [address]Khr: ([phone]) Date:2018-06-05 O [phone] () [address]ATTN: [place] [address]LE: 09/26/2018 Secondary NOT GIVENUNK [place] Insurance:SELF PAY [facility] Number: Effective Repository Date:2018-06-05 09/24/2018 VITOR J Primary VITOR J [place] MILLERGLENDORA Insurance:CARESOURCE MILLERDOB: [place] [address] Policy Number: [id number] Psychiatric Center, [id number] [place] [address]Yra: (318) Date:2018-09-13 O [phone] () [address]ATTN: [place] [address]LN: 09/24/2018 Secondary NOT GIVENUNK [place] Insurance:SELF PAY [facility] Number: Effective Repository Date:2018-09-13 09/06/2018 VITOR J Primary VITOR J [place] MILLERGLENDORA Insurance:CARESOURCE MILLERDOB: [place] [address] Policy Number: [id number] Psychiatric Center, [id number] [place] [address]Abv: ([phone]) Date:2018-09-06 O [phone] () [address]ATTN: [place] [address]AS: 09/06/2018 Secondary NOT GIVENUNK [place] Insurance:SELF PAY [facility] Number: Effective Repository Date:2018-09-06 08/28/2018 VITOR J Primary VITOR J [place] MILLERGLENDORA Insurance:CARESOURCTodd ALBRETODOB: [place] [address] Policy Number: [id number] Psychiatric Center, [id number] [place] [address]Jzs: ([phone]) Date:2018-08-21P O [phone] () [address]ATTN: [place] [address]RL: 08/28/2018 Secondary NOT GIVENUNK [place] Insurance:SELF PAY [facility] Number: Effective Repository Date:2018-08-21 08/06/2018 VITOR J Primary VITOR J [place] MILLERGLENDORA Insurance:CARESOLEILANI ALBERTODOB: [place] [address] Policy Number: [id number] Psychiatric Center, [id number] [place] [address]Yvi: ([phone]) Date:2018-07-25P O [phone] () [address]ATTN: [place] [address]UZ: 08/06/2018 Secondary NOT GIVENUNK [place] Insurance:SELF PAY [facility] Number: Effective Repository Date:2018-07-25 06/15/2018 VITOR J [id number] Primary VITOR J [place] [address] Insurance:CARESOURCE REMYDOB: [address] Policy Number: [id number] Hospital [address]Mjz: 330 [id number] Repository [phone] () Date:2018-06-15P [address]ATTN: [place] [address]IT: 06/15/2018 Secondary NOT GIVENUNK [place] Insurance:SELF PAY [facility] Number: Effective Repository Date:2018-06-15 06/15/2018 VITOR J [id number] Primary VITOR J Hnan[place] [address] Insurance:CARESOURCE REMYDOB: [address] Policy Number: [id number] Hospital [address]Uru: (117) [id number] Repository [phone] (HP) Date:2018-06-15 [address]ATTN: [place] [address]BP: 06/15/2018 Secondary NOT GIVENUNK [place] Insurance:SELF PAY [facility] Number: Effective Repository Date:2018-06-15 06/15/2018 VITOR J [id number] Primary VITOR J [place] [address] Insurance:CARESOLEILANI SCHOFIELDB: [address] Policy Number: [id number] Hospital [address]Wnl: (255) [id number] Repository [phone] () Date:2018-06-15 [address]ATTN: [place] [address]NO: 06/15/2018 Secondary NOT GIVENUNK [place] Insurance:SELF PAY [facility] Number: Effective Repository Date:2018-06-15 06/15/2018 VITOR J [id number] Primary VITOR J [place] [address] Insurance:CARESOLEILANI SCHOFIELDB: [address] Policy Number: [id number] Hospital [address]Hhj: 330 [id number] Repository [phone] () Date:2018-06-15 [address]ATTN: [place] [address]RP: 06/15/2018 Secondary NOT GIVENUNK [place] Insurance:SELF PAY [facility] Number: Effective Repository Date:2018-06-15 06/15/2018 VITOR J [id number] Primary VITOR J [place] [address] Insurance:CARESOLEILANI SCHOFIELDB: [address] Policy Number: [id number] Hospital [address]Lgl: (454) [id number] Repository [phone] () Date:2018-06-15 [address]ATTN: [place] [address]RD: 06/15/2018 Secondary NOT GIVENUNK [place] Insurance:SELF PAY [facility] Number: Effective Repository Date:2018-06-15 06/15/2018 VITOR J [id number] Primary VITOR J [place] [address] Insurance:CARESOLEILANI SCHOFIELDB: [address] Policy Number: [id number] Hospital [address]Zks: 330 [id number] Repository [phone] (HP) Date:2018-06-15P [address]ATTN: [place] [address]RI: 06/15/2018 Secondary NOT GIVENUNK [place] Insurance:SELF PAY [facility] Number: Effective Repository Date:2018-06-15 06/15/2018 VITOR J [id number] Primary VITOR J [place] [address] Insurance:CARESOLEILANI SCHOFIELDB: [address] Policy Number: [id number] Hospital [address]Zyu: 330 [id number] Repository [phone] (HP) Date:2018-06-15P [address]ATTN: [place] [address]NT: 06/15/2018 Secondary NOT GIVENUNK [place] Insurance:SELF PAY [facility] Number: Effective Repository Date:2018-06-15 06/11/2018 VITOR Davi [id number] Primary VITOR J [place] [address] Insurance:CARESOLEILANI SCHOFIELDB: [address] Policy Number: [id number] [facility] [address]Jkh: 330 [id number] Repository [phone] (HP) Date:2018-06-11P [address]ATTN: [place] [address]EQ: 06/11/2018 Secondary NOT GIVENUNK [place] Insurance:SELF PAY [facility] Number: Effective Repository Date:2018-06-11 06/05/2018 VITOR J [id number] Primary VITOR J [place] [address] Insurance:CARESOURCE REMYDOB: [address] Policy Number: [id number] Hospital [address]Hvk: 330 [id number] Repository [phone] () Date:2018-05-30 O [address]ATTN: [place] [address]GL: 06/05/2018 Secondary NOT GIVENUNK [place] Insurance:SELF PAY [facility] Number: Effective Repository Date:2018-06-05 06/04/2018 VITOR J [id number] Primary VITOR J [place] [address] Insurance:CARESOURCE REMYDOB: [address] Policy Number: [id number] Hospital [address]Atl: (907) [id number] Repository [phone] () Date:2018-06-04 [address]ATTN: [place] [address]RO: 06/04/2018 Secondary NOT GIVENUNK [place] Insurance:SELF PAY [facility] Number: Effective Repository Date:2018-06-04 05/17/2018 VITOR J [id number] Primary VITOR J [place] [address] Insurance:CARESOURCE REMYDOB: [address] Policy Number: [id number] [facility] [address]Lcj: 330 [id number] Repository [phone] () Date:2018-05-17 [address]ATTN: [place] [address]IW: 05/17/2018 Secondary NOT GIVENUNK [place] Insurance:SELF PAY [facility] Number: Effective Repository Date:2018-05-17 05/15/2018 VITOR J [id number] Primary VITOR J [place] [address] Insurance:CARESOURCE REMYDOB: [address] Policy Number: [id number] Hospital [address]Azi: 330 [id number] Repository [phone] (HP) Date:2018-05-01 [address]ATTN: [place] [address]HR: 05/15/2018 Secondary NOT GIVENUNK [place] Insurance:SELF PAY [facility] Number: Effective Repository Date:2018-05-01 12/13/2017 Vitor Lambert Primary [facility] [id number] Insurance:CARESOLEILANI SchofieldB: [facility], Policy Number: [id number] [address]Yht: (693) [id number] Repository [phone] () Date:2017-12-13P [address]ATTN: [place] [address]NO: 12/13/2017 Secondary NOT GIVENUNK [place] Insurance:SELF PAY [facility] Number: Effective Repository Date:2017-12-13
== END ==
PROVIDERS: Family Provider Family Medicine; PCP Family Medicine; Referring Provider Internal Medicine Cardiovascular Disease; Visit Provider Internal Medicine Cardiovascular Disease
DX: R94.31 Abnormal electrocardiogram [ECG] [EKG] (principal); I10 Essential (primary) hypertension; E11.9 Type 2 diabetes mellitus without complications
CPT/HCPCS: 93017; 93350; J7040; A4216

== ENCOUNTER 2018-10-29 19:59 | Inpatient (IN) | payer MEDICAID, SELFPAY ==
[2018-08-28 06:23] VITALS: BMI 27.4
[2018-10-29] VITALS (10 sets, daily range): BP systolic 92–180; BP diastolic 38–54; PULSE 78–83; RESP 16–18; TEMP 36.3–36.7; O2SAT 95–99; BMI 30.2; BMI 32.4
--- NOTE | 2018-10-29 11:33 | EKG12_ITS ---
Test Reason : PRE-OP Blood Pressure : / mmHG Vent. Rate : 079 BPM Atrial Rate : 079 BPM P-R Int : 178 ms QRS Dur : 082 ms QT Int : 366 ms P-R-T Axes : 048 -31 054 degrees QTc Int : 419 ms Poor data quality, interpretation may be adversely affected Normal sinus rhythm Left axis deviation Abnormal ECG Confirmed by JULIANNE ROBERTS, SOLEDAD ([id number]), business editor IVAN ALBERTO ([id number]) on 10/31/2018 3:14:35 PM Referred By: Jose Angel Luke Confirmed By:SOLEDAD WHITAKER MD
[2018-10-29 12:21] LABS: Bedside Glucose 217 mg/dL (70-110)
--- NOTE | 2018-10-29 12:30 | BON_PTH ---
PATIENT: VITOR ALBERTO LOC: [facility]3 U#:[id number] AGE/SX: 58/F ROOM: SD318 RE10/29/[address]: Dr. Jose Angel Luke DPM : 1960 BED: 1 DIS: 11/05/2018 SPEC #: [id number] RECD: 10/31/18 09:25 STATUS: BAHMAN REQ #: [id number] LINNEA: 10/29/18 12:[address]: Jose Angel Luke DEPT: SURGICAL PATHOLOGY RECD BY: Wayne Mcleod ENTERED: 10/31/18 10:31 SP TYPE: Bone OTHR DR: ROCHELLE Hood Dr., MD Dr. Paul Nielsen, MD Dr. Tai Chi Kwok, MD Tissues: Bone of foot, NOS Procedures: Decalcification bone/plaque Surgery Specimen Level IV Comments: @ Ordering doctor for DEC edited from to @ by IAN at 10/31/18 1444 @ Ordering doctor for SUIV edited from to @ by IAN at 10/31/18 1444 @ Submitting doctor edited from to DR.[email or web address] Antonio by IAN at 10/31/18 1444 HEADER OPERATION: Ankle fusion arthrodesis, subtalar fusion arthrodesis PRE-OP DIAGNOSIS: Left talus fracture, calcaneus fracture and Charcot's left ankle secondary to diabetic neuropathy TISSUE SUBMITTED: Left ankle calcaneal-navicular joint MICROSCOPIC DIAGNOSIS Left ankle, calcaneal-navicular joint, biopsy: Osteonecrosis with organizing fracture callus. Fibrous tissue with granulation. No evidence of acute osteomyelitis. AM:margarita 11/05/18 MICROSCOPIC DESCRIPTION Slides are reviewed. GROSS DESCRIPTION Received in fixative is one container labeled with the patient's name and designated left ankle calcaneal-navicular joint. The specimen consists of multiple fragments of bone that in aggregate measure 3 x 2.5 x 0.3 cm. The entire specimen is submitted in one cassette after decalcification. / SJ:margarita 10/31/18 TC:5 CPT: 14573, 08672
[2018-10-29] MEDS: Vancomycin IV 1,000 MG/200 ML BAG 200 MG IV (12:38)
[2018-10-29] MEDS: Heparin 10,000 UNITS/10 ML Vial 10000 UNITS (12:39)
--- NOTE | 2018-10-29 13:20 | RAD_ITS ---
STUDY: X-RAY - LEFT ANKLE REASON FOR EXAM: Female, 58 years old. Left ankle fusion. TECHNIQUE: 7 view(s) of the ankle. COMPARISON: None. FINDINGS: Multiple images were obtained intraoperatively. There is internal fixation of the distal tibia and calcaneus. RAD/Ankle 2 Views IMPRESSION: Images obtained for hardware localization. Electronically Signed: Wanda Amato MD at 19:39 EST Tel , Service support ,
--- NOTE | 2018-10-29 18:13 | PCM.OPRPT ---
Report of Operation Date of Procedure: 10/29/18 Pre-Operative Diagnosis: Charcot neuroarthropathy left ankle and hindfoot Post-Operative Diagnosis: Same Surgery/Procedure Performed:: Tibiotalocalcaneal arthrodesis and talonavicular arthrodesis, left foot/ankle editorial manager: yes - Dr. Douglas Rollins Type of Anesthesia:: General Specimen's removed: Bone from the left ankle/subtalar/talonavicular joints sent to pathology and microbiology Estimated Blood Loss (mL): 40mL Description of Procedure: Operative procedure: The patient was brought back into the operating room and was placed on the operating room in the prone position after the patient received general anesthesia per the anesthesia team. We were sure to pad and protect all jimmy prominences and all important areas on the patient.The patient was secured to the operating room table with a safety belt around her waist. The patient received 1 gram of IV Vancomycin for antibiotic prophylaxis. A well padded pneumatic tourniquet was applied around patient's left thigh. The patient received general anesthesia per the anesthesia team. The left lower extremity was scrubbed, prepped, and draped in the usual aseptic fashion. A timeout was performed and the patient was properly identified and the surgical plan was confirmed. A Jamshidi needle was placed percutaneously to the lateral wall of the body of the calcaneus and a total of 80mL of bone marrow aspirate was obtained, redirecting several times. The aspirated bone marrow aspirate was passed from the surgical field and was concentrated down to 5mL. The concentrated bone marrow aspirate was mixed with bone allograft for later packing into the arthrodesis sites. The left foot was elevated for 3 minutes and the left thigh pneumatic tourniquet was inflated to 300mmHg. Further attention was directed to the ankle. There was gross instability to the ankle, subtalar and talonavicular joints. There is increase talar tilt and positive anterior drawer sign to the ankle. The ankle and hiindfoot were very floppy. Using a 15 scalpel blade an incision was made overlying the posterior subtalar and ankle joints, posterior to the Achilles tendon. Careful dissection was completed down to the Achilles tendon. The Achilles tendon was incised longitudinally down the middle. Blunt direction was completed down to the posterior subtalar joint and ankle joint capsules, the medial neurovascular bundle was protected out of the away medially. The flexor hallucis longus tendon and muscle belly were identified and reflected medially as well. The posterior ankle joint and subtalar joint capsules were visualized. There was noted to be hypertrophy and thickening of the ankle joint capsule. The capsules were incised using a 15 scalpel blade and reflected from the posterior aspect, exposing the joint surfaces. There was noted to be significant degenerative Charcot changes of the ankle and subtalar joints. Cartilage was significantly worn, nonviable, and degenerative. There was noted to be bone fragmentation present. There was no purulence or evidence of abscess present. There is no gross necrosis present. All of the nonviable/unhealthy tissue was debrided out from the ankle and subtalar joints. A specimen of this tissue was sent to pathology. All of the cartilage of the ankle and subtalar joints were debrided and removed from the bone ends, this was completed down to healthy viable bleeding bone. This was completed using curettes, bone cutting rongeurs, as well as a bone bur being sure not to create osteonecrosis. The site was flushed out with copious amounts of normal saline solution. The ankle joint and the subtalar joint surfaces were drilled / fenestrated with a 2.4mm drill multiple times, also they were prepped with an small osteotome to enhance and aid vascularity and fusion to the arthrodesis sites. The arthrodesis surfaces of the ankle and subtalar joints were coated with [employer] graft to also aid the healing of the arthrodesis. Due to the significant Charcot changes which was debrided out, there was a residual void to the ankle fusion site. The site was packed with cancellous bone allograft mixed with concentrated bone marrow aspirate. Also the subtalar joint was packed with the cancellous bone allograft as well to aid fusion. The foot and ankle were placed at 90 degrees to the leg, and the heel in very slight valgus, and the prepped ankle and subtalar joints surfaces were brought together. They were fixated using rigid open reduction internal fixation technique. First one 6.5mm partially threaded [employer] screw which was placed from the posterior plantar calcaneus going up through the subtalar and ankle arthrodesis sites to the anterior tibia. A washer was used on the screw head, as the patient's bone was soft. There was excellent bite and compression across the arthrodesis sites. One [facility] posterior TTC locking plate with a total of nine 4.5mm locking screws and one 4.5mm nonlocking cortical screw were used to secure the plate across the arthrodesis sites. The calcaneal screws were placed first, and then the proximal cortical screw was placed eccentrically to allow for further compression across the arthrodesis sites. The rest of the screws were placed. There was excellent stability present with good alignment present. Based on the screw lengths available for the plate, the longer option were used proximally to ensure good purchase, stability and fixation into the plate and bone. Alignment and placement were confirmed using intra operative fluoroscopy. The ankle and subtalar joints were rigidly fixated, very stable, and in good alignment with excellent bone compression across the sites. The talus noted to be under the tibial, and clinically the foot was plantigrade with neutral flexion, heel in slight valgus position. The surgical site was flushed out with copious amounts of normal saline solution. The left thigh pneumatic tourniquet was deflated (125 minutes total) and there was immediate return of warmth and perfusion. CFT < 2 seconds to all toes, and normal temperature present. Pedal pulses were intact. Hemostasis was achieved prior to closure. The joint capsules and deep fascia layer were reapproximated using 2-0 Vicryl, the sides of the Achilles tendon were brought together and reapproximated using 2-0 Vicryl, the subcutaneous tissue layer was reapproximated using 3-0 Vicryl. The skin was reapproximated using 3-0 Nylon. A temporary dressing of gauze and coban was applied. There was noted to be continued gross instability and break down of the talonavicular joint. Therefore the patient was carefully placed into the supine position. The surgeons rescrubbed, and the patient's left lower extremity was rescrubbed, prepped and draped in the usual aseptic fashion. The left foot was again elevated and the left thigh pneumatic tourniquet was inflated to 300mmHg. A skin incision was made to the anterior ankle and dorsal hindfoot/midfoot using a 15 scalpel blade. This was made between the anterior tibial tendon and the extensor hallucis longus tendon. Careful dissection was completed down through the subcutaneous tissue layer and extensor retinaculum. The ankle joint capsule and talonavicular capsule were visualized and incised using a15 scalpel blade. The capsules were incised and partially reflected. The ankle had already been prepped and had already been fixated as noted above. It was confirmed to properly prepped and in good position. There was noted to be a void to the talonavicular joint due to significant Charcot changes, the talar head was absent as there had been significant nonviable tissue with fragmentation of the bone ends, and significant wearing away of the cartilage. The nonviable tissue was debrided and all cartilage removed. The debrided tissue was sent to pathology and microbiology with the specimen from the ankle and subtalar joint debrided tissue. The site was packed with the cancellous bone allograft. The bone ends were brought together and the foot was placed at 90 degrees to the leg. The prepped talonavicular arthrodesis site was fixated using rigid open reduction internal fixation technique, 1 [email or web address] locking fibular plate which was bent to conform to the site, and was fixated with 2 nonlocking screws and the rest locking screws. There was excellent stability present with good alignment present. Alignment and placement were confirmed using intra operative fluoroscopy. The ankle, subtalar, and talonavicular joint arthrodesis sites were all rigidly fixated, very stable, and in good alignment with excellent bone compression across the sites Hardware was intact, in good position and very stable holding proper alignment of the foot/ankle. The foot was plantigrade with neutral flexion, heel in slight valgus position. he left thigh pneumatic tourniquet was deflated (75 minutes total) and there was immediate return of warmth and perfusion. CFT < 2 seconds to all toes, and normal temperature present. Pedal pulses were intact. Hemostasis was achieved prior to closure. The joint capsules and deep fascia layer were reapproximated using 2-0 Vicryl, the sides of the Achilles tendon were brought together and reapproximated using 2-0 Vicryl, the subcutaneous tissue layer was reapproximated using 3-0 Vicryl. The skin was reapproximated using 3-0 Nylon. A dressing was applied which consisted of Betadine soaked Adaptic, 4x4 gauze, Kerlix, abd pads and berenice bandages. The patient received a leftlower extremity popliteal block by Dr. Ribeiro (from the anesthesia team) at the end of the procedure. The patient tolerated the procedure and the anesthesia well with no complications. The patient was transported from the operating room to the recovery room with vital signs stable and in good condition. The patient will be admitted for post operative pain control and observation. I spoke with the hospitalist, who agreed with admission. Post operative orders were placed. Post operative xrays of the foot (3 views), ankle (3 views) were obtained in the recovery room which were reviewed; they confirmed TTC and talonavicular arthrodesis in good alignment, good bone to bone contact, with stable fixation across the arthrodesis sites, no complications seen. The patient will be admitted for post operative pain control and monitoring. She will be followed as an inpatient. Grafts/Implants Used: 1 TTC [email or web address] plate, 1 [email or web address] fibular plate and screws - Complications None
[2018-10-29 18:41] LABS: Bedside Glucose 197 mg/dL (70-110)
--- NOTE | 2018-10-29 18:45 | RAD_ITS ---
STUDY: X-RAY - LEFT ANKLE REASON FOR EXAM: Female, 58 years old. Postoperative. TECHNIQUE: 3 view(s) of the ankle. COMPARISON: None. FINDINGS: The patient is status post internal fixation and arthrodesis of the left ankle. Evaluation is limited by the presence of hardware. Anterior tibial plate and screws are present. Posterior tibial and calcaneal plate and screws are present. Fixation screw traverses the calcaneus and distal tibia. There is marked narrowing of the tibiotalar joint. The talus appears sclerotic, consistent with avascular necrosis. There is narrowing of the subtalar joint. Demonstrated midfoot is osteoporotic consistent with disuse. The patient is status post amputation of the fourth and fifth digits. RAD/Ankle min 3 Views IMPRESSION: Anatomic alignment status post arthrodesis of the tibiotalar joint. Avascular necrosis of the talus. Narrowing of the tibiotalar and subtalar joints. Additional chronic findings are detailed above. Electronically Signed: Wanda Amato MD at 20:52 EST Tel , Service support ,
--- NOTE | 2018-10-29 18:45 | RAD_ITS ---
STUDY: X-RAY - LEFT FOOT CLINICAL: Female, 58 years old. Postop evaluation. TECHNIQUE: 3 view(s) of the foot. COMPARISON: Radiographs of the left foot dated August 28, 2018. FINDINGS: There are too numerous to count screws traversing the distal tibia as well as the hindfoot tarsal bones particularly the talus and calcaneus. Plate and screws are also visible. The bones are severely osteopenic. There appear to be multiple bone fragments in the region of the distal tibia and fibula. There is demineralization of the second and third metatarsi. Only of the proximal fourth metatarsal is present. The patient has had amputation of most of the fourth metatarsal and amputation the fifth metatarsal. There is degenerative arthrosis of the metatarsophalangeal joint of the hallux . Normal tibial and fibular sesamoid bones. Normal interphalangeal joint of the great toe. Normal phalanges of the great toe. Normal second and third metatarsophalangeal joints. The patient has had amputation of the phalanges of the fourth and fifth toes. The phalanges of the second and third toes appear osteopenic without obvious acute fracture. There is diffuse soft tissue swelling of ankle and foot. RAD/Foot min 3 Views IMPRESSION: 1. Documentation of surgical arthrodesis of the tibiotalar articulation as well as several the articulations of the hindfoot. 2. Osteoporosis. 3. Status post amputations of the phalanges of the fourth and fifth toes, most of the fourth metatarsal and the entire fifth metatarsal. Electronically Signed: Ksenia Yoo MD at 2:04 EST , Service support ,
--- NOTE | 2018-10-29 18:55 | PCM.HP.STD ---
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 Castañeda) had surgery on left foot/ankle today and needs admission for post operative pain management. Patient injuried left ankle this summer while at [employer], walked on fracture for several weeks because she had no pain from her neuropathy, although it was swollen. She presented to me several weeks after the injury. She was nonadherent with staying off of her foot and immobilization, ultimately left with nonhealing charcot neuroarthropathy with significant instability as well as breakdown of the foot/ankle. She underwent tibiotalocalcaneal arthrodesis as well as talonavicular arthrodesis today. She will be admitted for post operative pain control. She has otherwise been at [facility] since this summer 2017, due to her foot/ankle status. 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 Luke. Abnormal EKG (Chronic) ekg's indicating possible previous inferior infarct HTN (hypertension) (Chronic) Debility (Chronic) MRSA (methicillin resistant Staphylococcus aureus) infection (Chronic) Type II diabetes mellitus (Chronic) Peripheral neuropathy (Chronic) Tobacco use disorder (Chronic) Obesity (Chronic) Medical History: Medical History (Last Reviewed 06/05/18 @ 08:58 by Marta Santos) Chronic pain (Chronic) G89.29 Abnormal EKG (Chronic) R94.31 ekg's indicating possible previous inferior infarct HTN (hypertension) (Chronic) I10 Type II diabetes mellitus (Chronic) E11.9 Peripheral neuropathy (Chronic) G62.9 Tobacco use disorder (Chronic) F17.200 Allergies clindamycin [From Cleocin] Allergy (Verified 10/16/18 11:15) Itching Sulfa (Sulfonamide Antibiotics) Allergy (Verified 10/16/18 11:15) Itching ondansetron [From Zofran (as hydrochloride)] Adverse Reaction (Verified 10/16/18 11:15) Nausea Home Medications: Ambulatory Orders Medication Instructions Recorded Omeprazole 20 mg PO DAILY 12/16/16 Docusate Sodium [Colace] 100 mg PO PRN PRN 07/23/17 atorvastatin 40 mg tablet 40 mg PO QHS 06/04/18 lisinopril 20 mg tablet 20 mg PO DAILY 06/04/18 Chlorthalidone 25 mg PO DAILY 06/11/18 proMETHazine tablet [Phenergan 25 mg PO Q6H PRN PRN 06/11/18 tablet] Acetaminophen [Tylenol] 1,000 mg PO TID tablet 06/20/18 Ergocalciferol [Vitamin D] 50,000 unit PO Q7D #7 capsule 06/20/18 Gabapentin [Neurontin] 300 mg PO TID 08/24/18 Insulin Glargine [Lantus SoloStar 40 units SC QHS 08/24/18 Pen] Insulin Lispro [Humalog KwikPen] 10 unit SC TIDCM 08/24/18 Melatonin [Melatin] 3 mg PO QHS 08/24/18 Oxycodone HCl [Oxycontin] 10 mg PO BID 08/24/18 Oxycodone [Oxyir] 5 mg PO Q6H 08/24/18 Bisacodyl [Dulcolax] 10 mg RECTAL PRN PRN 10/16/18 Duloxetine Hcl [Cymbalta] 60 mg PO DAILY 10/16/18 Ibuprofen [Motrin] 400 mg PO DAILY PRN PRN 10/16/18 Insulin Lispro [Humalog KwikPen] See Protocol SQ TIDCM 10/16/18 Lactobacillus Acidophilus 1 tablet PO BID 10/16/18 [Acidophilus] Loperamide [Imodium] 2 mg PO PRN PRN 10/16/18 Lorazepam [Ativan] 0.5 mg PO QHS 10/16/18 Magnesium Hydroxide [Milk Of 30 ml PO DAILY PRN PRN 10/16/18 Magnesia] Mineral Oil 118 ml RC PRN PRN 10/16/18 Multivitamins,Ther W-Minerals 1 tablet PO DAILY 10/16/18 [Multivitamin With Minerals] Surgical History: Surgical History (Last Reviewed 06/05/18 @ 08:58 by Marta Snatos) 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 Luke. Surgical History: cholecystectomy, - - Amputation of the left fourth and fifth toes and metatarsals. 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 Paternal Family History: Family History (Last Reviewed 06/05/18 @ 08:58 by Marta Santos) Mother CAD (coronary artery disease) Father Arthritis Brother Arthritis History Items: Heart Disease Review of Systems Constitutional: Denies: Chills, Fever Cardiovascular: Denies: Chest Pain, Chest Pressure, Chest Tightness Respiratory: Denies: Shortness of Breath Gastrointestinal: Denies: Nausea, Vomiting Musculoskeletal: Reports: Foot Pain. Denies: Back Pain Skin: Reports: Wounds - hx of left foot ulcers s/p partial 4th and 5th ray amputation left foot (2016) VTE Information - Inpt Only VTE Present on Admission: Yes VTE Mechan Device Prophylaxis: SCD's VTE Pharm Prophylaxis ordered?: Yes - Physical Exam General: Alert, Oriented x3, Cooperative, No apparent distress Extremities: No clubbing, No cyanosis, Capillary Refill Less than 3 Seconds, No Calf Tenderness, Peripheral Pulses Normal, - - Dressing clean, dry and intact left foot/ankle Musculoskeletal: No Tenderness to Palpation of Joints or Extremities Psych/Mental Status: Appropriate Vital Signs Temp Pulse Resp BP Pulse Ox 97.5 F L 78 16 103/38 L 99 10/29/18 18:26 10/29/18 18:26 10/29/18 18:26 10/29/18 18:26 10/29/18 18:26 Oxygen Flow Rate (L/min) 3 Oxygen Delivery Method Nasal Cannula Weight: 79.832 kg Body Mass Index (BMI) 30.2 POC Glucose 10/29/18 10/29/18 18:35 12:04 POC Glucose 197 H 217 H Assessment/Plan All Active Problems (Last Reviewed 06/05/18 @ 08:58 by Marta Santos) Complicated fracture of left calcaneum (Acute) Complicated fracture of left talus (Acute) Charcot's joint, left ankle and foot (Acute) Osteomyelitis of ankle or foot (Resolved) Diabetic foot infection (Resolved) Diabetic infected right heel ulcer (Resolved) Charcot Neuroarthropathy, left foot/ankle s/p tibiotalocalcaneal and talonavicular arthrodesis Diabetes with peripheral neuropathy Hypertension Anxiety, Depression Tobacco Dependence/Abuse Vitamin D Deficiency Charcot Neuroarthropathy, left foot/ankle s/p tibiotalocalcaneal and talonavicular arthrodesis. -Leave dressing clean, dry, intact. -No weightbearing left foot -Must keep the left foot elevated at all times, keep heel offloaded with pillows -Ancef 1 gram q 8 hours for 24 hours -Pain management: Acetaminophen, Oxycodone, and Morphine has been ordered -DVT Prophylaxis: Lovenox 40mg once daily Subcutaneous starting tomorrow morning -Incentive Spirometry Diabetes with peripheral neuropathy, Hypertension, Hyperlipidemia, Anxiety, Depression - medicine has been consulted for medical management, appreciate medicine team's assistance Tobacco Dependence/Abuse - advised tobacco/smoking cessation - I have reviewed the importance of this as well as the rationale of this with her great detail. Vitamin D Deficiency - patient on 50,000 units ergocalciferol PO twice a week
[2018-10-29] MEDS: oxyCODONE 5 MG Tablet 10 MG PO (19:22)
--- NOTE | 2018-10-29 20:14 | PCM.CONS.GEN ---
Problem List (1) Charcot's joint, left ankle and foot Status: Acute (2) Chronic pain Status: Chronic Qualifiers: Chronic pain type: other chronic pain Qualified Code(s): G89.29 - Other chronic pain (3) Anxiety Status: Chronic (4) Depression Status: Chronic Qualifiers: Depression Type: unspecified Qualified Code(s): F32.9 - Major depressive disorder, single episode, unspecified (5) HTN (hypertension) Status: Chronic Qualifiers: Hypertension type: essential hypertension Qualified Code(s): I10 - Essential (primary) hypertension (6) Type II diabetes mellitus Status: Chronic Qualifiers: Diabetes mellitus penitentiary insulin use: with penitentiary use Diabetes mellitus complication status: with unspecified complications Qualified Code(s): E11.8 - Type 2 diabetes mellitus with unspecified complications; 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 (7) Peripheral neuropathy Status: Chronic Qualifiers: Peripheral neuropathy type: polyneuropathy, unspecified Qualified Code(s): G62.9 - Polyneuropathy, unspecified (8) Tobacco use disorder Status: Chronic (9) Obesity Status: Chronic Qualifiers: Obesity type: due to excess calories Obesity classification: adult class 1 (BMI 30 - 34.9) Reason for Consult Date of Consultation: 10/29/18 Reason for Consultation: Medical management, co-admission w/ Podiatry History of Present Illness: The patient is a 58 y/o F w/ PMHx: CAD s/p Prior [place] without MCI, HTN, HLD, Obesity, Diabetes mellitus type II w/ Neuropathy, GERD, Anxiety and Depression who presents to the [facility] on 10/29/18 for planned surgical intervention per Dr. Luke for Charcot neuroarthropathy left ankle and hindfoot with no marked chivo-operative events with requested medical consultation for co-admission of the patient. In the PACU patient is very fatigued, sedate with notable recent anesthetic sedation. Patient notes currently pain improved with recent regimen. Discussed importance of tobacco cessation given severity of peripheral vascular disease and recent lower extremity intervention. 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 Luke. Abnormal EKG (Chronic) ekg's indicating possible previous inferior infarct HTN (hypertension) (Chronic) Debility (Chronic) MRSA (methicillin resistant Staphylococcus aureus) infection (Chronic) Type II diabetes mellitus (Chronic) Peripheral neuropathy (Chronic) Tobacco use disorder (Chronic) Obesity (Chronic) Medical History: Medical History (Last Reviewed 06/05/18 @ 08:58 by Marta Santos) Chronic pain (Chronic) G89.29 Abnormal EKG (Chronic) R94.31 ekg's indicating possible previous inferior infarct HTN (hypertension) (Chronic) I10 Type II diabetes mellitus (Chronic) E11.9 Peripheral neuropathy (Chronic) G62.9 Tobacco use disorder (Chronic) F17.200 Allergies clindamycin [From Cleocin] Allergy (Verified 10/16/18 11:15) Itching Sulfa (Sulfonamide Antibiotics) Allergy (Verified 10/16/18 11:15) Itching ondansetron [From Zofran (as hydrochloride)] Adverse Reaction (Verified 10/16/18 11:15) Nausea Home Medications: Ambulatory Orders Medication Instructions Recorded Omeprazole 20 mg PO DAILY 12/16/16 Docusate Sodium [Colace] 100 mg PO PRN PRN 07/23/17 atorvastatin 40 mg tablet 40 mg PO QHS 06/04/18 lisinopril 20 mg tablet 20 mg PO DAILY 06/04/18 Chlorthalidone 25 mg PO DAILY 06/11/18 proMETHazine tablet [Phenergan 25 mg PO Q6H PRN PRN 06/11/18 tablet] Acetaminophen [Tylenol] 1,000 mg PO TID tablet 06/20/18 Ergocalciferol [Vitamin D] 50,000 unit PO Q7D #7 capsule 06/20/18 Gabapentin [Neurontin] 300 mg PO TID 08/24/18 Insulin Glargine [Lantus SoloStar 40 units SC QHS 08/24/18 Pen] Insulin Lispro [Humalog KwikPen] 10 unit SC TIDCM 08/24/18 Melatonin [Melatin] 3 mg PO QHS 08/24/18 Oxycodone HCl [Oxycontin] 10 mg PO BID 08/24/18 Oxycodone [Oxyir] 5 mg PO Q6H 08/24/18 Bisacodyl [Dulcolax] 10 mg RECTAL PRN PRN 10/16/18 Duloxetine Hcl [Cymbalta] 60 mg PO DAILY 10/16/18 Ibuprofen [Motrin] 400 mg PO DAILY PRN PRN 10/16/18 Insulin Lispro [Humalog KwikPen] See Protocol SQ TIDCM 10/16/18 Lactobacillus Acidophilus 1 tablet PO BID 10/16/18 [Acidophilus] Loperamide [Imodium] 2 mg PO PRN PRN 10/16/18 Lorazepam [Ativan] 0.5 mg PO QHS 10/16/18 Magnesium Hydroxide [Milk Of 30 ml PO DAILY PRN PRN 10/16/18 Magnesia] Mineral Oil 118 ml RC PRN PRN 10/16/18 Multivitamins,Ther W-Minerals 1 tablet PO DAILY 10/16/18 [Multivitamin With Minerals] Surgical History: Surgical History (Last Reviewed 06/05/18 @ 08:58 by Marta Santos) 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 Luek. Surgical History: cholecystectomy, - - Amputation of the left fourth and fifth toes and metatarsals, recent intervention per Dr. Luke w/ tibiotalocalcaneal arthrodesis as well as talonavicular arthrodesis. Psychiatric History: No pertinent psych hx [employer]IP History: No pertinent [employer] history Lives: [facility] Smoking Status: Current every day smoker - 1/4-1/2 ppd. Tobacco Use: Cigarettes Alcohol: None Drugs: None - *Family History Maternal Family History: Family History (Last Reviewed 06/05/18 @ 08:58 by Marta Santos) Mother CAD (coronary artery disease) Father Arthritis Brother Arthritis History Items: Heart Disease, - - mother at age 67 bof heart problems. Paternal Family History: Family History (Last Reviewed 06/05/18 @ 08:58 by Marta Santos) Mother CAD (coronary artery disease) Father Arthritis Brother Arthritis History Items: Heart Disease Review of Systems Constitutional: Reports: Malaise, Weakness, Fatigue. Denies: Chills, Fever, Weight Change HEENT: Denies: Head Aches, Sinus Congestion, Sinus Drainage Cardiovascular: Denies: Chest Pain, Palpitations Respiratory: Denies: Cough, Shortness of breath at rest, Sputum production Gastrointestinal: Denies: Abdominal Pain, Nausea, Vomiting Genitourinary: Denies: Dysuria Musculoskeletal: Reports: Back Pain, Joint Pain, Joint stiffness, Joint swelling, Joint Tenderness, Leg Pain Skin: Denies: Rash, Wounds Neurological: Denies: Numbness, Tingling, Focal weakness Psychiatric: Reports: Anxiety, Depression. Denies: Homicidal Ideations, Suicidal Ideations Hematologic/ Lymphatic: Denies: Easy Bruising, Easy Bleeding Subjective: Seated upright in the PACU bed, fatigued, sedate with recent anesthetic. Objective: Physical Examination: General: awakens to stimuli, fatigued, intermittently alert, orientation decreased given recent sedation, remains cooperative, seated upright in the PACU bed in no apparent distress. Skin: normal color, turgor, no icterus, cyanosis, L foot elevated, extensive dressing in place. HEENT: AT/NC, EOMI, PERRLA, only dry MM, no carotid bruits or JVD noted. Lungs: CTA bilaterally, moderate effort, mild decrease BL bases, no rales, ronchi or wheezing. Heart: Regular rate and rhythm; no gallop, rub audible. Abdomen: soft, obese, NTTP, ND, normal BS, no HSM. Extremities: no cyanosis, clubbing, see skin. Neurological: awakens to stimuli, fatigued, intermittently alert, orientation decreased given recent sedation, remains cooperative, seated upright in the PACU bed in no apparent distress; cognitive function not baseline intact; pupils equally reactive to light and accomodation; cranial nerves II-XII grossly normal, primarily moving upper extremities, recent intervention with anesthetic and block, strength severely globally decreased secondary to recent acute interventions Psychiatric: affect appears flat, no acute evidence of depressive or anxiety feelings. - Physical Exam Vital Signs Temp Pulse Resp BP Pulse Ox 97.6 F L 79 18 115/46 L 95 10/29/18 20:12 10/29/18 20:12 10/29/18 20:12 10/29/18 20:12 10/29/18 20:12 Oxygen Flow Rate (L/min) 3 Oxygen Delivery Method Room Air Weight: 189 lb Body Mass Index (BMI) 32.4 Finger Stick Blood Glucose 197 Intake and Output for Last 24 Hours 10/27/18 10/28/1818 23:59 23:59 23:59 Intake Total 2300 / 2300 Balance 2300 / 2300 POC Glucose 10/29/18 10/29/18 18:35 12:04 POC Glucose 197 H 217 H Assessment/Plan All Active Problems (Last Reviewed 06/05/18 @ 08:58 by Marta Santos) Complicated fracture of left calcaneum (Acute) Complicated fracture of left talus (Acute) Charcot's joint, left ankle and foot (Acute) Osteomyelitis of ankle or foot (Resolved) Diabetic foot infection (Resolved) Diabetic infected right heel ulcer (Resolved) The patient is a 58 y/o F w/ PMHx: CAD s/p Prior [place] without MCI, HTN, HLD, Obesity, Diabetes mellitus type II w/ Neuropathy, GERD, Anxiety and Depression who presents to the [facility] on 10/29/18 for planned surgical intervention per Dr. Luke for Charcot neuroarthropathy left ankle and hindfoot with no marked chivo-operative events with requested medical consultation for co-admission of the patient. (1) Acute on Chronic Pain, LLE w/ Charcot neuroarthropathy left ankle and hindfoot: Operative intervention tibiotalocalcaneal arthrodesis as well as talonavicular arthrodesis 10/29/[address] Luke, failed conservative therapies and treatments, admitted for pain control with planned return once appropriate to SNF, pain management with continued home OxyContin in addition to oral PRN oxycodone and as needed breakthrough IV Dilaudid will immediately consider temporary increase OxyContin for improved control given history of chronic pain, bowel regimen, DVT Prophylaxis, PT/OT/CM, WB status per podiatry discretion. (2) Diabetes mellitus type II: Hold oral home regimen, continue home insulin regimen, ADA diet, accu checks w/ ISS. (3) Hypertension: Continue home regimen including chlorthalidone, lisinopril, PRN hydralazine. (4) Hyperlipidemia: Continue home statin regimen. (5) Obesity: Weight loss and lifestyle changes encouraged. (6) Anxiety and depression: Continue home Cymbalta, Ativan regimen. (7) GERD: PPI. (8) DVT Prophylaxis: SCDs, lovenox. Code Visit Inpatient E&M: 30243 [facility] L3
--- NOTE | 2018-10-29 20:19 | CON.PCM_ITS ---
Problem List (1) Charcot's joint, left ankle and foot Status: Acute (2) Chronic pain Status: Chronic Qualifiers: Chronic pain type: other chronic pain Qualified Code(s): G89.29 - Other chronic pain (3) Anxiety Status: Chronic (4) Depression Status: Chronic Qualifiers: Depression Type: unspecified Qualified Code(s): F32.9 - Major depressive disorder, single episode, unspecified (5) HTN (hypertension) Status: Chronic Qualifiers: Hypertension type: essential hypertension Qualified Code(s): I10 - Essential (primary) hypertension (6) Type II diabetes mellitus Status: Chronic Qualifiers: Diabetes mellitus shelter insulin use: with shelter use Diabetes mellitus complication status: with unspecified complications Qualified Code(s): E11.8 - Type 2 diabetes mellitus with unspecified complications; Z79.4 - medical terminologist (current) use of insulin (7) Peripheral neuropathy Status: Chronic Qualifiers: Peripheral neuropathy type: polyneuropathy, unspecified Qualified Code(s): G62.9 - Polyneuropathy, unspecified (8) Tobacco use disorder Status: Chronic (9) Obesity Status: Chronic Qualifiers: Obesity type: due to excess calories Obesity classification: adult class 1 (BMI 30 - 34.9) Reason for Consult Date of Consultation: 10/29/18 Reason for Consultation: Medical management, co-admission w/ Podiatry History of Present Illness: The patient is a 58 y/o F w/ PMHx: CAD s/p Prior [place] without MCI, HTN, HLD, Obesity, Diabetes mellitus type II w/ Neuropathy, GERD, Anxiety and Depression who presents to the [facility] on 10/29/18 for planned surgical intervention per Dr. Luke for Charcot neuroarthropathy left ankle and hindfoot with no marked chivo-operative events with requested medical consultation for co-admission of the patient. In the PACU patient is very fatigued, sedate with notable recent anesthetic sedation. Patient notes currently pain improved with recent regimen. Discussed importance of tobacco cessation given severity of peripheral vascular disease and recent lower extremity intervention. 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 Luke. Abnormal EKG (Chronic) ekg's indicating possible previous inferior infarct HTN (hypertension) (Chronic) Debility (Chronic) MRSA (methicillin resistant Staphylococcus aureus) infection (Chronic) Type II diabetes mellitus (Chronic) Peripheral neuropathy (Chronic) Tobacco use disorder (Chronic) Obesity (Chronic) Medical History: Medical History (Last Reviewed 06/05/18 @ 08:58 by Marta Santos) Chronic pain (Chronic) G89.29 Abnormal EKG (Chronic) R94.31 ekg's indicating possible previous inferior infarct HTN (hypertension) (Chronic) I10 Type II diabetes mellitus (Chronic) E11.9 Peripheral neuropathy (Chronic) G62.9 Tobacco use disorder (Chronic) F17.200 Allergies clindamycin [From Cleocin] Allergy (Verified 10/16/18 11:15) Itching Sulfa (Sulfonamide Antibiotics) Allergy (Verified 10/16/18 11:15) Itching ondansetron [From Zofran (as hydrochloride)] Adverse Reaction (Verified 10/16/18 11:15) Nausea Home Medications: Ambulatory Orders Medication Instructions Recorded Omeprazole 20 mg PO DAILY 12/16/16 Docusate Sodium [Colace] 100 mg PO PRN PRN 07/23/17 atorvastatin 40 mg tablet 40 mg PO QHS 06/04/18 lisinopril 20 mg tablet 20 mg PO DAILY 06/04/18 Chlorthalidone 25 mg PO DAILY 06/11/18 proMETHazine tablet [Phenergan 25 mg PO Q6H PRN PRN 06/11/18 tablet] Acetaminophen [Tylenol] 1,000 mg PO TID tablet 06/20/18 Ergocalciferol [Vitamin D] 50,000 unit PO Q7D #7 capsule 06/20/18 Gabapentin [Neurontin] 300 mg PO TID 08/24/18 Insulin Glargine [Lantus SoloStar 40 units SC QHS 08/24/18 Pen] Insulin Lispro [Humalog KwikPen] 10 unit SC TIDCM 08/24/18 Melatonin [Melatin] 3 mg PO QHS 08/24/18 Oxycodone HCl [Oxycontin] 10 mg PO BID 08/24/18 Oxycodone [Oxyir] 5 mg PO Q6H 08/24/18 Bisacodyl [Dulcolax] 10 mg RECTAL PRN PRN 10/16/18 Duloxetine Hcl [Cymbalta] 60 mg PO DAILY 10/16/18 Ibuprofen [Motrin] 400 mg PO DAILY PRN PRN 10/16/18 Insulin Lispro [Humalog KwikPen] See Protocol SQ TIDCM 10/16/18 Lactobacillus Acidophilus 1 tablet PO BID 10/16/18 [Acidophilus] Loperamide [Imodium] 2 mg PO PRN PRN 10/16/18 Lorazepam [Ativan] 0.5 mg PO QHS 10/16/18 Magnesium Hydroxide [Milk Of 30 ml PO DAILY PRN PRN 10/16/18 Magnesia] Mineral Oil 118 ml RC PRN PRN 10/16/18 Multivitamins,Ther W-Minerals 1 tablet PO DAILY 10/16/18 [Multivitamin With Minerals] Surgical History: Surgical History (Last Reviewed 06/05/18 @ 08:58 by Marta Santos) 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 Luke. Surgical History: cholecystectomy, - - Amputation of the left fourth and fifth toes and metatarsals, recent intervention per Dr. Luke w/ tibiotalocalcaneal arthrodesis as well as talonavicular arthrodesis. Psychiatric History: No pertinent psych hx BOTTLE HOP History: No pertinent BOTTLE HOP history Lives: [facility] Smoking Status: Current every day smoker - 1/4-1/2 ppd. Tobacco Use: Cigarettes Alcohol: None Drugs: None - *Family History Maternal Family History: Family History (Last Reviewed 06/05/18 @ 08:58 by Marta Santos) Mother CAD (coronary artery disease) Father Arthritis Brother Arthritis History Items: Heart Disease, - - mother at age 67 bof heart problems. Paternal Family History: Family History (Last Reviewed 06/05/18 @ 08:58 by Marta Santos) Mother CAD (coronary artery disease) Father Arthritis Brother Arthritis History Items: Heart Disease Review of Systems Constitutional: Reports: Malaise, Weakness, Fatigue. Denies: Chills, Fever, Weight Change HEENT: Denies: Head Aches, Sinus Congestion, Sinus Drainage Cardiovascular: Denies: Chest Pain, Palpitations Respiratory: Denies: Cough, Shortness of breath at rest, Sputum production Gastrointestinal: Denies: Abdominal Pain, Nausea, Vomiting Genitourinary: Denies: Dysuria Musculoskeletal: Reports: Back Pain, Joint Pain, Joint stiffness, Joint swelling, Joint Tenderness, Leg Pain Skin: Denies: Rash, Wounds Neurological: Denies: Numbness, Tingling, Focal weakness Psychiatric: Reports: Anxiety, Depression. Denies: Homicidal Ideations, Suicidal Ideations Hematologic/ Lymphatic: Denies: Easy Bruising, Easy Bleeding Subjective: Seated upright in the PACU bed, fatigued, sedate with recent anesthetic. Objective: Physical Examination: General: awakens to stimuli, fatigued, intermittently alert, orientation decreased given recent sedation, remains cooperative, seated upright in the PACU bed in no apparent distress. Skin: normal color, turgor, no icterus, cyanosis, L foot elevated, extensive dressing in place. HEENT: AT/NC, EOMI, PERRLA, only dry MM, no carotid bruits or JVD noted. Lungs: CTA bilaterally, moderate effort, mild decrease BL bases, no rales, ronchi or wheezing. Heart: Regular rate and rhythm; no gallop, rub audible. Abdomen: soft, obese, NTTP, ND, normal BS, no HSM. Extremities: no cyanosis, clubbing, see skin. Neurological: awakens to stimuli, fatigued, intermittently alert, orientation decreased given recent sedation, remains cooperative, seated upright in the PACU bed in no apparent distress; cognitive function not baseline intact; pupils equally reactive to light and accomodation; cranial nerves II-XII grossly normal, primarily moving upper extremities, recent intervention with anesthetic and block, strength severely globally decreased secondary to recent acute interventions Psychiatric: affect appears flat, no acute evidence of depressive or anxiety feelings. - Physical Exam Vital Signs Temp Pulse Resp BP Pulse Ox 97.6 F L 79 18 115/46 L 95 10/29/18 20:12 10/29/18 20:12 10/29/18 20:12 10/29/18 20:12 10/29/18 20:12 Oxygen Flow Rate (L/min) 3 Oxygen Delivery Method Room Air Weight: 189 lb Body Mass Index (BMI) 32.4 Finger Stick Blood Glucose 197 Intake and Output for Last 24 Hours 10/27/18 10/28/1818 23:59 23:59 23:59 Intake Total 2300 / 2300 Balance 2300 / 2300 POC Glucose 10/29/18 10/29/18 18:35 12:04 POC Glucose 197 H 217 H Assessment/Plan All Active Problems (Last Reviewed 06/05/18 @ 08:58 by Marta Santos) Complicated fracture of left calcaneum (Acute) Complicated fracture of left talus (Acute) Charcot's joint, left ankle and foot (Acute) Osteomyelitis of ankle or foot (Resolved) Diabetic foot infection (Resolved) Diabetic infected right heel ulcer (Resolved) The patient is a 58 y/o F w/ PMHx: CAD s/p Prior [place] without MCI, HTN, HLD, Obesity, Diabetes mellitus type II w/ Neuropathy, GERD, Anxiety and Depression who presents to the [facility] on 10/29/18 for planned surgical intervention per Dr. Luke for Charcot neuroarthropathy left ankle and hindfoot with no marked chivo-operative events with requested medical consultation for co-admission of the patient. (1) Acute on Chronic Pain, LLE w/ Charcot neuroarthropathy left ankle and hindfoot: Operative intervention tibiotalocalcaneal arthrodesis as well as talonavicular arthrodesis 10/29/[address] Luke, failed conservative therapies and treatments, admitted for pain control with planned return once appropriate to SNF, pain management with continued home OxyContin in addition to oral PRN oxycodone and as needed breakthrough IV Dilaudid will immediately consider temporary increase OxyContin for improved control given history of chronic pain, bowel regimen, DVT Prophylaxis, PT/OT/CM, WB status per podiatry discretion. (2) Diabetes mellitus type II: Hold oral home regimen, continue home insulin regimen, ADA diet, accu checks w/ ISS. (3) Hypertension: Continue home regimen including chlorthalidone, lisinopril, PRN hydralazine. (4) Hyperlipidemia: Continue home statin regimen. (5) Obesity: Weight loss and lifestyle changes encouraged. (6) Anxiety and depression: Continue home Cymbalta, Ativan regimen. (7) GERD: PPI. (8) DVT Prophylaxis: SCDs, lovenox. Code Visit Inpatient E&M: [id number] [facility] L3
[2018-10-29] MEDS: HYDROmorphone 1 MG/ML Syringe IV (21:24)
--- NOTE | 2018-10-29 22:12 | NURSING ---
Pt states she felt like she couldn't catch her breath. Checked pulse ox and 97% on RA, pt now resting in bed with eyes closed. continuous pulse ox on per orders. will continue to monitor.
[2018-10-29] MEDS: Cefazolin 1 GM/50 ML BAG IV (22:19)
[2018-10-29] MEDS: LORazepam 0.5 MG Tablet PO (22:19)
[2018-10-29] MEDS: Insulin Lispro 100 UNIT/ML INSULN.PEN SC (22:20)
[2018-10-29] MEDS: MELATONIN 3 MG TABLET PO (22:21)
[2018-10-29] MEDS: Atorvastatin Calcium 40 MG Tablet PO (22:21)
[2018-10-29 22:35] LABS: Bedside Glucose 229 mg/dL (70-110)
[2018-10-29] MEDS: oxyCODONE HCl Cr 10 MG Tablet PO (23:52)
[2018-10-30] VITALS (7 sets, daily range): BP systolic 96–116; BP diastolic 44–50; PULSE 86–100; RESP 14–16; TEMP 36.6–37.2; O2SAT 93–94
[2018-10-30] MEDS: HYDROmorphone 1 MG/ML Syringe IV ×2 (02:33→06:41)
[2018-10-30] MEDS: Cefazolin 1 GM/50 ML BAG IV (06:03)
[2018-10-30] MEDS: Enoxaparin 40 MG/0.4 ML Syringe SC (06:03)
[2018-10-30 07:08] LABS: Absolute Lymphocyte Count 1.58 X10^3/ul (0.83-4.51); Absolute Neutrophil Count 3.5 X10^3/uL (2.0-7.7); Basophil# 0.03 X10^3/uL; Basophil% 0.5 % (0-1); Eosinophil# 0.19 X10^3/uL; Eosinophils% 3.2 % (0-5); Hematocrit 30.7 % (37-47); Lymphocyte # 1.58 X10^3/ul (4.0); Lymphocyte % 26.5 % (19-41); Mean Corp Hgb Conc 32.6 g/gl (32-36); Mean Corpuscular Hgb 31.7 pg (27.0-32.0); Mean Corpuscular Volume 97.5 fL (81-99); Monocyte# 0.69 X10^3/uL; Monocyte% 11.6 % (0-10); Neutrophil # 3.47 X10^3/uL (2.7-7.7); Platelet Count 123 K/mm3 (150-450); RBC Distribution Width CV 14.8 % (11.6-14.6); RBC Distribution Width SD 52.9 fl (35.1-43.9); Red Blood Count 3.15 M/mm3 (4.2-5.4)
[2018-10-30 07:11] LABS: Bedside Glucose 227 mg/dL (70-110)
[2018-10-30 07:14] LABS: POSITIVE COUNT NO; POSITIVE DIFFERENTIAL NO; POSITIVE MORPHOLOGY NO
[2018-10-30 07:26] LABS: ALB/GLOB Ratio 0.6 RATIO (0.9-2.4); AST(SGOT) 52 U/L (15-37); Alanine Aminotransfer ALT/SGPT 33 U/L (13-56); Albumin, Serum 2.2 g/dL (3.2-5.0); Alkaline Phosphatase 223 U/L (45-117); Anion Gap 12 (5-15); BUN 22 mg/dL (7-18); BUN/Creat Ratio 12.5 RATIO (10-20); Calcium,Total 7.9 mg/dL (8.5-10.1); Chloride 101 mmol/L (98-107); Creatinine, Serum 1.76 mg/dL (0.55-1.02); EST Glomerular Filtration Rate 31 mL/min (>60); Est Glom Filt Rate - Afr Amer 38 mL/min (>60); Estimated Creatinine Clearance 29.35 ml/min; Glucose 228 mg/dL (74-106); Protein, Total 6.2 g/dL (6.4-8.2); Sodium Level 135 mmol/L (136-145)
[2018-10-30] MEDS: Insulin Lispro 100 UNIT/ML INSULN.PEN 10 UNIT SC ×3 (08:51→16:59)
[2018-10-30] MEDS: Insulin Lispro 100 UNIT/ML INSULN.PEN SC ×4 (08:52→21:07)
[2018-10-30] MEDS: Pantoprazole Sodium 20 MG Tablet PO (08:52)
[2018-10-30] MEDS: Chlorthalidone 50 MG Tablet 25 MG PO (08:53)
[2018-10-30] MEDS: Gabapentin 300 MG Capsule PO ×3 (08:53→17:00)
[2018-10-30] MEDS: Lisinopril 20 MG Tablet PO (08:54)
[2018-10-30] MEDS: Multivitamins,Ther W-Minerals Tablet 1 TABLET PO (08:54)
[2018-10-30] MEDS: DULoxetine Hcl 60 MG Capsule PO (08:54)
[2018-10-30] MEDS: proMETHazine 25 MG/ML Syringe 12.5 MG IV (09:26)
[2018-10-30] MEDS: 0.9% NaCl Peripheral Flush Adult/Peds IV ×2 (09:27→11:12)
--- NOTE | 2018-10-30 09:56 | PCM.PROGNOTE ---
Subjective: Patient seen today for follow up on left TTC and TN arthrodesis foot/ankle. She does relates to some pain to the left foot/ankle c/w normal post op course, otherwise no other pain present. She was noted to have some hypotension overnight. Otherwise no fever, chills or vomiting. She does relate to some nausea. No chest pain or shortness of breath, no calf pain. - Physical Exam General: Alert, Oriented x3, Cooperative, No apparent distress Extremities: Capillary Refill Less than 3 Seconds, No Calf Tenderness, Peripheral Pulses Normal, - - Left foot/ankle with incision sites anterior and posterior foot/ankle well coapted with sutures intact, no dehiscence, no fluctuance, no cellulitis, no necrosis, no maloder, no drainage; no active bleeding present, no ulcerations no blistering present. CFT < 2 seconds to all toes on left foot with no evidence of ischemia to the left foot or ankle. Calf is soft and supple bilateral with no evidence of DVT. There is some edema to the left foot/ankle c/w normal post op course. No hypersenstivity or evidence of compartment syndrome to the left foot or ankle. Left ankle, subtalar joint and talonavicular joint rigid with post op alignment maintained. Psych/Mental Status: Appropriate, Alert and oriented to time, place, person, mood and affect - Resting in bed with foot elevated. Vital Signs Temp Pulse Resp BP Pulse Ox 98.0 F 100 16 112/44 L 94 10/30/18 08:56 10/30/18 09:12 10/30/18 08:56 10/30/18 08:56 10/30/18 08:56 Oxygen Flow Rate (L/min) 3 Oxygen Delivery Method Room Air Weight: 85.729 kg Body Mass Index (BMI) 32.4 Finger Stick Blood Glucose 197 Intake and Output for Last 24 Hours 10/28/18 10/29/18 10/30/18 23:59 23:59 23:59 Intake Total 2300 / 2300 443 / 443 Output Total 1075 / 1075 Balance 2300 / 2300 -632 / -632 Laboratory Tests Past 24 Hrs 10/30/18 10/30/18 06:35 06:35 WBC 6.0 RBC 3.15 L Hgb 10.0 L Hct 30.7 L MCV 97.5 MCH 31.7 MCHC 32.6 RDW 14.8 H RDW Differential 52.9 H Plt Count 123 L MPV 10.0 Immature Gran % (Auto) 0.200 Neut % (Auto) 58.0 Lymph % (Auto) 26.5 [place] % (Auto) 11.6 H Eos % (Auto) 3.2 Baso % (Auto) 0.5 Absolute Neuts (auto) 3.5 Absolute Lymphs (auto) 1.58 Total Counted Not Reportable Sodium 135 L Potassium 4.0 Chloride 101 Carbon Dioxide 22.0 Anion Gap 12 BUN 22 H Creatinine 1.76 H Estim Creat Clear Calc 29.35 Est GFR (MDRD) Af Amer 38 L Est GFR (MDRD) Non-Af 31 L BUN/Creatinine Ratio 12.5 Glucose 228 H Calcium 7.9 L Total Bilirubin 1.50 H AST 52 H ALT 33 Alkaline Phosphatase 223 H Total Protein 6.2 L Albumin 2.2 L Globulin 4.0 Albumin/Globulin Ratio 0.6 L POC Glucose 10/30/18 10/29/18 10/29/18 06:40 22:18 18:35 POC Glucose 227 H 229 H 197 H 10/29/18 12:04 POC Glucose 217 H Medical Necessity - Tobacco Use Smoking Status: Current every day smoker Tobacco Use: Cigarettes Assessment/Plan All Active Problems (Last Reviewed 06/05/18 @ 08:58 by Marta Santos) Complicated fracture of left calcaneum (Acute) Complicated fracture of left talus (Acute) Charcot's joint, left ankle and foot (Acute) Osteomyelitis of ankle or foot (Resolved) Diabetic foot infection (Resolved) Diabetic infected right heel ulcer (Resolved) Charcot Neuroarthropathy, left foot/ankle s/p tibiotalocalcaneal and talonavicular arthrodesis on 10/29/18 Diabetes with peripheral neuropathy Hypertension Anxiety, Depression Tobacco Dependence/Abuse Vitamin D Deficiency Charcot Neuroarthropathy, left foot/ankle s/p tibiotalocalcaneal and talonavicular arthrodesis on 10/29/18. -Dressing was changed, sites healing well, no evidence of complication, infection, or DVT at this time. -Painted incision sites with Betadine solution, applied well padded dressing consisting of gauze, kerlix, abd pads and berenice bandages, then applied a well padded below the knee posterior splint with heel / posterior incision offloaded. Leave dressing clean, dry, intact. -No weightbearing left foot -Must keep the left foot elevated at all times, keep heel offloaded with pillows -Pain management: Acetaminophen and Oxycodone/Oxyir, d/c Dilaudid - will see how patient does on oral pain meds -DVT Prophylaxis: Lovenox 40mg once daily subcutaneous -Incentive Spirometry Diabetes with peripheral neuropathy, Hypertension, Hyperlipidemia, Anxiety, Depression - appreciate medicine team's assistance, spoke with medicine team and reviewed increased creatinine, patient noted to have hypotension and plan is to give fluids Tobacco Dependence/Abuse - advised tobacco/smoking cessation - I have reviewed the importance of this as well as the rationale of this with her great detail. Vitamin D Deficiency - patient on 50,000 units ergocalciferol PO twice a week
[2018-10-30] MEDS: 0.9% Normal Saline 1,000 ML 125 ML IV ×2 (10:10→18:20)
--- NOTE | 2018-10-30 10:23 | PN_ITS ---
Subjective: Patient seen and examined. She is very drowsy throughout soon as she is awakened, she complains of severe pain in her foot. She denies any fever or chills, any chest pain, any cough, no abdominal pain, any diarrhea vomiting. However says she feels terrible because of the pain. Labs and vitals reviewed. She was noted to be hypotensive overnight and per discussion with podiatry, she was also noted to be a bit hypotensive during surgery as well. Creatinine noted to have trended up to 1.76 today which is likely due to the hypotension. Sravani prakash is on OxyContin and Dilaudid as well as oxycodone for pain and it is likely that her lethargy and drowsiness is due to the opiates. Vitals/I&O's: Vital Signs Temp Pulse Resp BP Pulse Ox 98.0 F 100 16 112/44 L 94 10/30/18 08:56 10/30/18 09:12 10/30/18 08:56 10/30/18 08:56 10/30/18 08:56 Oxygen Flow Rate (L/min) 3 Oxygen Delivery Method Room Air Weight: 189 lb Body Mass Index (BMI) 32.4 Finger Stick Blood Glucose 197 Intake and Output for Last 24 Hours 10/28/18 10/29/18 10/30/18 23:59 23:59 23:59 Intake Total 2300 / 2300 443 / 443 Output Total 1075 / 1075 Balance 2300 / 2300 -632 / -632 General: Cooperative, Lethargic HEENT: Atraumatic, PERRLA, EOMI, Normocephalic Oral: Moist Mucosa Neck: Supple, No JVD, Negative Carotid Bruits Lungs: Clear to auscultation, Normal air movement, No rhonchi, No wheeze, No rales Cardiovascular: Regular rate, Regular Rhythm, Normal S1, Normal S2, No murmurs Abdomen: Bowel Sounds Present, Soft, Non Tender, Non-Distended, No Hepato- splenomegaly Extremities: No clubbing, No cyanosis, No edema, Capillary Refill Less than 3 Seconds Skin: No rashes, No breakdown Musculoskeletal: - - Left lower extremity wrapped in Ata bandage. Lymphatic: No Cervical, Supraclavicular, or Inguinal Adenopathy Neurological: Cranial nerves II-XII grossly intact, Neuro grossly intact, - - lethargic Psych/Mental Status: - - lethargic Laboratory Results 10/29/18 12:04: POC Glucose 217 H 10/29/18 18:35: POC Glucose 197 H 10/29/18 22:18: POC Glucose 229 H 10/30/18 06:35: WBC 6.0, RBC 3.15 L, Hgb 10.0 L, Hct 30.7 L, MCV 97.5, MCH 31.7, MCHC 32.6, RDW 14.8 H, RDW Differential 52.9 H, Plt Count 123 L, MPV 10.0, Immature Gran % (Auto) 0.200, Neut % (Auto) 58.0, Lymph % (Auto) 26.5, [place] % (Auto) 11.6 H, Eos % (Auto) 3.2, Baso % (Auto) 0.5, Absolute Neuts (auto) 3.5, Absolute Lymphs (auto) 1.58, Total Counted Not Reportable 10/30/18 06:35: Sodium 135 L, Potassium 4.0, Chloride 101, Carbon Dioxide 22.0, Anion Gap 12, BUN 22 H, Creatinine 1.76 H, Estim Creat Clear Calc 29.35, Est GFR (MDRD) Af Amer 38 L, Est GFR (MDRD) Non-Af 31 L, BUN/Creatinine Ratio 12.5, Glucose 228 H, Calcium 7.9 L, Total Bilirubin 1.50 H, AST 52 H, ALT 33, Alkaline Phosphatase 223 H, Total Protein 6.2 L, Albumin 2.2 L, Globulin 4.0, Albumin/Globulin Ratio 0.6 L 10/30/18 06:40: POC Glucose 227 H Current Medications Acetaminophen (Tylenol) 650 mg PO Q6H PRN PRN PRN Reason: PAIN Atorvastatin Calcium (Lipitor) 40 mg PO QHS COUNTS INCLUDE 234 BEDS AT THE [facility] Last Admin: 10/29/18 22:21 Dose: 40 mg Docusate Sodium (Colace) 100 mg PO BID PRN PRN PRN Reason: Constipation Duloxetine HCl (Cymbalta) 60 mg PO DAILY COUNTS INCLUDE 234 BEDS AT THE [facility] Last Admin: 10/30/18 08:54 Dose: 60 mg Enoxaparin Sodium (Lovenox) 40 mg SC DAILY@0600 COUNTS INCLUDE 234 BEDS AT THE [facility] Last Admin: 10/30/18 06:03 Dose: 40 mg Ergocalciferol (Vitamin D) 50,000 unit PO Sa@0800 COUNTS INCLUDE 234 BEDS AT THE [facility] Gabapentin (Neurontin) 300 mg PO TIDCM COUNTS INCLUDE 234 BEDS AT THE [facility] Last Admin: 10/30/18 08:53 Dose: 300 mg Hydralazine HCl (Apresoline Iv) 10 mg IV Q4H PRN PRN PRN Reason: SBP > 160 Naloxone HCl 4 mg/ Dextrose 504 mls @ 0 mls/hr IV .Q0M PRN; Protocol PRN Reason: To maintain Resp. rate >10 Sodium Chloride () 1,000 mls @ 125 mls/hr IV .Q8H COUNTS INCLUDE 234 BEDS AT THE [facility] Stop: 10/31/18 01:59 Insulin Glargine (Lantus (Bk)) 40 units SC QHS COUNTS INCLUDE 234 BEDS AT THE [facility] Last Admin: 10/29/18 22:20 Dose: 40 units Insulin Human Lispro (Humalog Kwikpen (Bkc)) 10 unit SC TIDCM COUNTS INCLUDE 234 BEDS AT THE [facility]; Protocol Last Admin: 10/30/18 08:51 Dose: 10 units Insulin Human Lispro (Humalog Kwikpen (Bk)) 0 unit SC ACHS COUNTS INCLUDE 234 BEDS AT THE [facility]; Protocol Last Admin: 10/30/18 08:52 Dose: 2 units Lactobacillus Acidophilus (Acidophilus) 1 tablet PO BID COUNTS INCLUDE 234 BEDS AT THE [facility] Last Admin: 10/30/18 08:53 Dose: 1 tablet Loperamide HCl (Imodium) 2 mg PO Q4H PRN PRN PRN Reason: Constipation Lorazepam (Ativan) 0.5 mg PO QHS COUNTS INCLUDE 234 BEDS AT THE [facility] Last Admin: 10/29/18 22:19 Dose: 0.5 mg Magnesium Hydroxide (Milk Of Magnesia) 30 ml PO DAILY PRN PRN PRN Reason: Constipation Melatonin (Melatonin) 3 mg PO QHS COUNTS INCLUDE 234 BEDS AT THE [facility] Last Admin: 10/29/18 22:21 Dose: 3 mg Multivitamins/Minerals (Multivitamin With Minerals) [facility] Last Admin: 10/30/18 08:54 Dose: 1 tablet Naloxone HCl (Narcan) 0.02 mg IV Q1M PRN PRN Reason: RR <10 and pt unresponsive Oxycodone HCl (Oxyir) 10 mg PO Q6H PRN PRN PRN Reason: SEVERE PAIN (6-10/10) Last Admin: 10/29/18 19:22 Dose: 10 mg Oxycodone HCl (Oxycontin) 10 mg PO BID COUNTS INCLUDE 234 BEDS AT THE [facility] Last Admin: 10/29/18 23:52 Dose: 10 mg Pantoprazole Sodium (Protonix) 20 mg PO DAILY IDA Last Admin: 10/30/18 08:52 Dose: 20 mg Promethazine HCl (Phenergan) 12.5 mg IV Q8H PRN PRN Reason: NAUSEA/VOMITING Last Admin: 10/30/18 09:26 Dose: 12.5 mg Sodium Chloride () 5 - 15 ml IV UD PRN PRN Reason: SALINE FLUSH Last Admin: 10/30/18 09:27 Dose: 10 ml Medical Necessity - Tobacco Use Smoking Status: Current every day smoker Tobacco Use: Cigarettes Assessment/Plan All Active Problems (Last Reviewed 06/05/18 @ 08:58 by Marta Santos) Complicated fracture of left calcaneum (Acute) Complicated fracture of left talus (Acute) Charcot's joint, left ankle and foot (Acute) Osteomyelitis of ankle or foot (Resolved) Diabetic foot infection (Resolved) Diabetic infected right heel ulcer (Resolved) 1. LLE charcot neuropathy s/p surgery * today is POD 1 * complains of pain, though she is very lethargic from pain meds * podiatry on board * dc dilaudid * pain management as per orthopedics * PT/OT on board * weight bearing status as per podiatry * 2. Acute metabolic encephalopathy due to opiates * Patient very lethargic and drowsy and his liver she was given Dilaudid. Will DC Dilaudid and monitor patient. * Plan is to keep patient off opiates as much as possible. * 3. AK I likely prerenal due to hypotension * Creatinine trended up to 1.76 with baseline being less than 1. Was noted to be hypotensive during surgery. * Will hydrate with IV fluids and monitor. * Hold current BP meds including chlorthalidone and lisinopril * 4. Hypertension:BP this mornign was 112/44. will hold BP meds o/a of hypotension overnight and CARISA 5. Anxiety and depression: on Cymbalta 6. Hyperlipidemia 7. GERD 8. Diabetes mellitus: on ISS. Accuchecks ACHS. Will resume home insuilin lantus 40IU qhs DVT prophylaxis:as per podiatry 4. Code Visit Inpatient E&M: [id number] [facility] L3
[2018-10-30 10:46] LABS: Bedside Glucose 219 mg/dL (70-110)
[2018-10-30 11:05] LABS: Bedside Glucose 223 mg/dL (70-110)
[2018-10-30] MEDS: oxyCODONE HCl Cr 10 MG Tablet PO ×2 (11:13→21:06)
[2018-10-30 16:02] LABS: Bedside Glucose 256 mg/dL (70-110)
[2018-10-30] MEDS: oxyCODONE 5 MG Tablet 10 MG PO (18:20)
[2018-10-30] MEDS: Atorvastatin Calcium 40 MG Tablet PO (21:06)
[2018-10-30] MEDS: LORazepam 0.5 MG Tablet PO (21:06)
[2018-10-30] MEDS: MELATONIN 3 MG TABLET PO (21:06)
[2018-10-30 22:31] LABS: Bedside Glucose 263 mg/dL (70-110)
[2018-10-31] MEDS: oxyCODONE 5 MG Tablet 10 MG PO ×2 (01:24→18:52)
[2018-10-31 03:09] VITALS: BP 112/50; PULSE 88; RESP 16; TEMP 37.1; O2SAT 94
[2018-10-31] MEDS: Enoxaparin 40 MG/0.4 ML Syringe SC (06:17)
--- NOTE | 2018-10-31 06:58 | PCM.PROGNOTE ---
Subjective: Patient seen this morning for follow up on left foot/ankle. She is more alert today, she relates she does have pain in foot/ankle, but does not appear to be severe at this time. She does have urinary retention. Otherwise no other complaints, no fever, chills, nausea or vomiting. No shortness of breath, chest pain or calf pain. She relates she did sleep last night. - Physical Exam General: Alert, Oriented x3, Cooperative, No apparent distress Extremities: Capillary Refill Less than 3 Seconds, No Calf Tenderness, - - Splint clean, dry and intact left foot with no evidence of bleeding, heel offloaded. CFT < 2 seconds to toes with normal temperature left foot, patient able to wiggle toes. Right foot with no open lesions or break down. Vital Signs Temp Pulse Resp BP Pulse Ox 98.8 F 88 16 112/50 L 94 10/31/18 03:09 10/31/18 03:09 10/31/18 03:09 10/31/18 03:09 10/31/18 03:09 Oxygen Flow Rate (L/min) 3 Oxygen Delivery Method Room Air Weight: 85.729 kg Body Mass Index (BMI) 32.4 Finger Stick Blood Glucose 197 Intake and Output for Last 24 Hours 10/29/18 10/30/18 10/31/18 23:59 23:59 23:59 Intake Total 2300 / 2300 1710 / 1710 1459 / 1459 Output Total 1675 / 1675 450 / 450 Balance 2300 / 2300 35 / 35 1009 / 1009 Microbiology Past 72 Hours 10/29/18 18:32 Gram Stain - Final Bone - Ankle Laboratory Tests Past 24 Hrs 10/30/18 10/30/18 06:35 06:35 WBC 6.0 RBC 3.15 L Hgb 10.0 L Hct 30.7 L MCV 97.5 MCH 31.7 MCHC 32.6 RDW 14.8 H RDW Differential 52.9 H Plt Count 123 L MPV 10.0 Immature Gran % (Auto) 0.200 Neut % (Auto) 58.0 Lymph % (Auto) 26.5 [place] % (Auto) 11.6 H Eos % (Auto) 3.2 Baso % (Auto) 0.5 Absolute Neuts (auto) 3.5 Absolute Lymphs (auto) 1.58 Total Counted Not Reportable Sodium 135 L Potassium 4.0 Chloride 101 Carbon Dioxide 22.0 Anion Gap 12 BUN 22 H Creatinine 1.76 H Estim Creat Clear Calc 29.35 Est GFR (MDRD) Af Amer 38 L Est GFR (MDRD) Non-Af 31 L BUN/Creatinine Ratio 12.5 Glucose 228 H Calcium 7.9 L Total Bilirubin 1.50 H AST 52 H ALT 33 Alkaline Phosphatase 223 H Total Protein 6.2 L Albumin 2.2 L Globulin 4.0 Albumin/Globulin Ratio 0.6 L POC Glucose 10/30/18 10/30/18 10/30/18 21:03 15:55 11:01 POC Glucose 263 H 256 H 223 H 10/30/18 10/30/18 09:10 06:40 POC Glucose 219 H 227 H Medical Necessity - Tobacco Use Smoking Status: Current every day smoker Tobacco Use: Cigarettes Assessment/Plan All Active Problems (Last Reviewed 06/05/18 @ 08:58 by Marta Santos) Complicated fracture of left calcaneum (Acute) Complicated fracture of left talus (Acute) Charcot's joint, left ankle and foot (Acute) Osteomyelitis of ankle or foot (Resolved) Diabetic foot infection (Resolved) Diabetic infected right heel ulcer (Resolved) Charcot Neuroarthropathy, left foot/ankle s/p tibiotalocalcaneal and talonavicular arthrodesis on 10/29/18 Diabetes with peripheral neuropathy Hypertension Anxiety, Depression Tobacco Dependence/Abuse Vitamin D Deficiency Charcot Neuroarthropathy, left foot/ankle s/p tibiotalocalcaneal and talonavicular arthrodesis on 10/29/18. -Leave dressing/splint clean, dry, intact. -No weightbearing left foot -Must keep the left foot elevated at all times, keep heel offloaded with pillows -Pain management: Acetaminophen and Oxycodone/Oxyir -DVT Prophylaxis: Lovenox 40mg once daily subcutaneous -Incentive Spirometry Diabetes with peripheral neuropathy, Hypertension, Hyperlipidemia, Anxiety, Depression, increased creatinine, urinary retention - appreciate medicine team's assistance Vitamin D Deficiency - patient on 50,000 units ergocalciferol PO twice a week. Discharge Planning: From foot/ankle standpoint ok to discharge back to [facility] as long as ok with Medicine team
[2018-10-31 07:18] LABS: Anion Gap 9 (5-15); BUN 26 mg/dL (7-18); Calcium,Total 7.4 mg/dL (8.5-10.1); Chloride 105 mmol/L (98-107); Creatinine, Serum 1.53 mg/dL (0.55-1.02); EST Glomerular Filtration Rate 37 mL/min (>60); Est Glom Filt Rate - Afr Amer 44 mL/min (>60); Estimated Creatinine Clearance 33.77 ml/min; Glucose 164 mg/dL (74-106); Potassium 4.1 mmol/L (3.5-5.1); Sodium Level 137 mmol/L (136-145)
[2018-10-31 07:46] LABS: AST(SGOT) 48 U/L (15-37); Alanine Aminotransfer ALT/SGPT 26 U/L (13-56); Alkaline Phosphatase 206 U/L (45-117); Bilirubin, Direct 1.55 mg/dL (0.00-0.30)
[2018-10-31 08:00] LABS: Bedside Glucose 173 mg/dL (70-110)
[2018-10-31] MEDS: Gabapentin 300 MG Capsule PO ×2 (08:54→12:25)
[2018-10-31] MEDS: Multivitamins,Ther W-Minerals Tablet 1 TABLET PO (08:54)
[2018-10-31] MEDS: Insulin Lispro 100 UNIT/ML INSULN.PEN 10 UNIT SC ×3 (08:54→18:53)
[2018-10-31] MEDS: Insulin Lispro 100 UNIT/ML INSULN.PEN SC ×4 (08:55→22:24)
[2018-10-31] MEDS: DULoxetine Hcl 60 MG Capsule PO (09:06)
[2018-10-31] MEDS: Pantoprazole Sodium 20 MG Tablet PO (09:06)
[2018-10-31] MEDS: oxyCODONE HCl Cr 10 MG Tablet PO (09:09)
[2018-10-31 09:10] VITALS: BP 100/38; PULSE 99; RESP 16; TEMP 37.4; O2SAT 94
[2018-10-31] MEDS: Acetaminophen 325 MG Tablet 650 MG PO ×2 (09:16→18:51)
--- NOTE | 2018-10-31 11:20 | CASEMGMT ---
GARY HOBBS Face to Face with patient for initial transition planning/care coordination assessment. GARY HOBBS introduced self and role at [facility]. Patient lying in bed, alert and oriented. Patient willing to participate in assessment and is able to answer all questions appropriately. Care providers, pharmacy, and demographics verified. Patient wishes to discharge back to [facility]. Patient states she has no further needs or concerns at this time. WILBER Rojas updated regarding request for [facility]. Disposition Plan: [place] pending precert. Roberta RENO, RN, CM
--- NOTE | 2018-10-31 12:25 | US_ITS ---
STUDY: ABDOMINAL ULTRASOUND - RIGHT UPPER QUADRANT REASON FOR VISIT: Female, 58 years old. Elevated LFTs TECHNIQUE: Ultrasound evaluation of the right upper quadrant was performed with real-time and static moya-scale imaging. TECHNICAL QUALITY: Adequate. COMPARISON: None. FINDINGS: Liver: The liver measures 17.9 cm. There is coarse echogenicity of the liver. The bile ducts are mildly prominent. There is hepatic color flow. The direction of portal flow is hepatopetal. There is no demonstrated mass lesion. Gallbladder: Status post cholecystectomy. Common Bile Duct (C.B.D.): The common bile duct measures 5 mm. Pancreas: Limited visualization of the pancreas. Right Kidney: Normal size of the right kidney. The right kidney measures 11.3 x 4.9 x 5.4 cm. Normal renal cortex. The right cortex measures 1.4 cm. There is no demonstrated renal mass or cyst. There is no right hydronephrosis. Mild ascites. US/Liver IMPRESSION: Mild ascites. Mild coarse echotexture of the liver. Mild biliary prominence. Electronically Signed: Case Liu DO at 0:04 EST Tel [phone], Service support ,
[2018-10-31 12:26] LABS: Bedside Glucose 183 mg/dL (70-110)
--- NOTE | 2018-10-31 12:27 | PCM.PN.HOSP ---
Subjective: Patient seen and examined. She remains very lethargic. She is however able to respond to questions and denies any fever, any chills, any cough or chest pain, any shortness of breath, any abdominal pain, any diarrhea vomiting. No jaundice noticed of sclera. Labs and vitals reviewed. Creatinine has trended down slightly from 1.76-1.53. However her bilirubin is trended up from 1.5-2. Direct bilirubin is 1.55 and AST is 48 but ALT is within normal limits. ALP is also elevated at 206. Vitals/I&O's: Vital Signs Temp Pulse Resp BP Pulse Ox 99.4 F H 99 16 100/38 L 94 10/31/18 09:10 10/31/18 09:10 10/31/18 09:10 10/31/18 09:10 10/31/18 09:10 Oxygen Flow Rate (L/min) 3 Oxygen Delivery Method Room Air Weight: 189 lb 0.001 oz Body Mass Index (BMI) 32.4 Finger Stick Blood Glucose 197 Intake and Output for Last 24 Hours 10/29/18 10/30/18 10/31/18 23:59 23:59 23:59 Intake Total 2300 / 2300 1710 / 1710 1459 / 1459 Output Total 1675 / 1675 1850 / 1850 Balance 2300 / 2300 35 / 35 -391 / -391 General: Cooperative, still very Lethargic HEENT: Atraumatic, PERRLA, EOMI, Normocephalic Oral: Moist Mucosa Neck: Supple, No JVD, Negative Carotid Bruits Lungs: Clear to auscultation, Normal air movement, No rhonchi, No wheeze, No rales Cardiovascular: Regular rate, Regular Rhythm, Normal S1, Normal S2, No murmurs Abdomen: Bowel Sounds Present, Soft, Non Tender, Non-Distended, No Hepato-splenomegaly Extremities: No clubbing, No cyanosis, No edema, Capillary Refill Less than 3 Seconds Skin: No rashes, No breakdown Musculoskeletal: - - Left lower extremity wrapped in Ata bandage. Lymphatic: No Cervical, Supraclavicular, or Inguinal Adenopathy Neurological: Cranial nerves II-XII grossly intact, Neuro grossly intact, - - very lethargic Psych/Mental Status: - - lethargic Microbiology Past 72 Hours 10/29/18 18:32 Bone - Ankle Gram Stain - Final 10/29/18 18:32 Bone - Ankle Wound Culture - Preliminary No growth-Final to follow Laboratory Results 10/30/18 15:55: POC Glucose 256 H 10/30/18 21:03: POC Glucose 263 H 10/31/18 07:00: Sodium 137, Potassium 4.1, Chloride 105, Carbon Dioxide 23.0, Anion Gap 9, BUN 26 H, Creatinine 1.53 H, Estim Creat Clear Calc 33.77, Est GFR (MDRD) Af Amer 44 L, Est GFR (MDRD) Non-Af 37 L, BUN/Creatinine Ratio 17.0, Glucose 164 H, Calcium 7.4 L 10/31/18 07:00: Total Bilirubin 2.00 H, Direct Bilirubin 1.55 H, AST 48 H, ALT 26, Alkaline Phosphatase 206 H, Total Protein 6.0 L, Albumin 2.0 L, Globulin 4.0 10/31/18 07:55: POC Glucose 173 H 10/31/18 12:19: POC Glucose 183 H Current Medications Acetaminophen (Tylenol) 650 mg PO Q6H PRN PRN PRN Reason: PAIN Last Admin: 10/31/18 09:16 Dose: 650 mg Atorvastatin Calcium (Lipitor) 40 mg PO QHS [facility] Last Admin: 10/30/18 21:06 Dose: 40 mg Docusate Sodium (Colace) 100 mg PO BID PRN PRN PRN Reason: Constipation Duloxetine HCl (Cymbalta) 60 mg PO DAILY [facility] Last Admin: 10/31/18 09:06 Dose: 60 mg Enoxaparin Sodium (Lovenox) 40 mg SC DAILY@0600 [facility] Last Admin: 10/31/18 06:17 Dose: 40 mg Ergocalciferol (Vitamin D) 50,000 unit PO Sa@0800 [facility] Gabapentin (Neurontin) 300 mg PO TIDCM [facility] Last Admin: 10/31/18 12:25 Dose: 300 mg Hydralazine HCl (Apresoline Iv) 10 mg IV Q4H PRN PRN PRN Reason: SBP > 160 Naloxone HCl 4 mg/ Dextrose 504 mls @ 0 mls/hr IV .Q0M PRN; Protocol PRN Reason: To maintain Resp. rate >10 Insulin Glargine (Lantus (Bkc)) 40 units SC QHS [facility] Last Admin: 10/30/18 21:08 Dose: 40 units Insulin Human Lispro (Humalog Kwikpen (Bkc)) 10 unit SC TIDCM [facility]; Protocol Last Admin: 10/31/18 12:24 Dose: 10 units Insulin Human Lispro (Humalog Kwikpen (Bkc)) 0 unit SC ACHS [facility]; Protocol Last Admin: 10/31/18 12:24 Dose: 1 units Lactobacillus Acidophilus (Acidophilus) 1 tablet PO BID [facility] Last Admin: 10/31/18 09:06 Dose: 1 tablet Loperamide HCl (Imodium) 2 mg PO Q4H PRN PRN PRN Reason: Constipation Lorazepam (Ativan) 0.5 mg PO QHS [facility] Last Admin: 10/30/18 21:06 Dose: 0.5 mg Magnesium Hydroxide (Milk Of Magnesia) 30 ml PO DAILY PRN PRN PRN Reason: Constipation Melatonin (Melatonin) 3 mg PO QHS [facility] Last Admin: 10/30/18 21:06 Dose: 3 mg Multivitamins/Minerals ([facility]itamin With Minerals) [facility] Last Admin: 10/31/18 08:54 Dose: 1 tablet Naloxone HCl (Narcan) 0.02 mg IV Q1M PRN PRN Reason: RR <10 and pt unresponsive Nutritional Formula (Lactose Free) (Glucerna Shake) 120 ml PO 4X/DAY [facility] Last Admin: 10/31/18 09:10 Dose: Not Given Oxycodone HCl (Oxyir) 10 mg PO Q6H PRN PRN PRN Reason: SEVERE PAIN (6-10/10) Last Admin: 10/31/18 01:24 Dose: 10 mg Oxycodone HCl (Oxycontin) 10 mg PO BID [facility] Last Admin: 10/31/18 09:09 Dose: 10 mg Pantoprazole Sodium (Protonix) 20 mg PO DAILY [facility] Last Admin: 10/31/18 09:06 Dose: 20 mg Promethazine HCl (Phenergan) 12.5 mg IV Q8H PRN PRN Reason: NAUSEA/VOMITING Last Admin: 10/30/18 09:26 Dose: 12.5 mg Sodium Chloride () 5 - 15 ml IV UD PRN PRN Reason: SALINE FLUSH Last Admin: 10/30/18 11:12 Dose: 10 ml Medical Necessity - Tobacco Use Smoking Status: Current every day smoker Tobacco Use: Cigarettes Assessment/Plan All Active Problems (Last Reviewed 06/05/18 @ 08:58 by Marta Santos) Complicated fracture of left calcaneum (Acute) Complicated fracture of left talus (Acute) Charcot's joint, left ankle and foot (Acute) Osteomyelitis of ankle or foot (Resolved) Diabetic foot infection (Resolved) Diabetic infected right heel ulcer (Resolved) 1. LLE charcot neuropathy s/p surgery today is POD 3 complains of pain, though she is very lethargic from pain meds podiatry on board dc dilaudid pain management as per orthopedics PT/OT on board weight bearing status as per podiatry 2. Acute metabolic encephalopathy due to medication vs liver impairment AMS was thought to be due to dilaudid; dilaudid was dced, but patient remains very lethargic total bilirubin has trended up to 2, from 1.5 yesterday; direct bilirubin is elevated at 1.5. AST/ALT/ALP is 48/26/206 will get liver USG and check ammonia level will hold long acting opiates. 3. AK I likely prerenal due to hypotension Cr down to 1.53 from 1.76 yesterday continue hydrating with IVF and monitor Hold current BP meds including chlorthalidone and lisinopril 4. Hypertension: BP meds on hold on account of hypotension and CARISA. Blood pressure this morning is 100/38. We will continue holding BP meds. 5. Anxiety and depression: on Cymbalta 6. Hyperlipidemia: on statin. 7. GERD; on PPI 8. Diabetes mellitus: on insulin lantus 40IU qhs. on ISS. Accuchecks ACHS. DVT prophylaxis:on lovenox, as per podiatry 4. Code Visit Inpatient E&M: 56984 Subs Hosp L3
--- NOTE | 2018-10-31 12:39 | PN_ITS ---
Subjective: Patient seen and examined. She remains very lethargic. She is however able to respond to questions and denies any fever, any chills, any cough or chest pain, any shortness of breath, any abdominal pain, any diarrhea vomiting. No jaundice noticed of sclera. Labs and vitals reviewed. Creatinine has trended down slightly from 1.76-1.53. However her bilirubin is trended up from 1.5-2. Direct bilirubin is 1.55 and AST is 48 but ALT is within normal limits. ALP is also elevated at 206. Vitals/I&O's: Vital Signs Temp Pulse Resp BP Pulse Ox 99.4 F H 99 16 100/38 L 94 10/31/18 09:10 10/31/18 09:10 10/31/18 09:10 10/31/18 09:10 10/31/18 09:10 Oxygen Flow Rate (L/min) 3 Oxygen Delivery Method Room Air Weight: 189 lb 0.001 oz Body Mass Index (BMI) 32.4 Finger Stick Blood Glucose 197 Intake and Output for Last 24 Hours 10/29/18 10/30/18 10/31/18 23:59 23:59 23:59 Intake Total 2300 / 2300 1710 / 1710 1459 / 1459 Output Total 1675 / 1675 1850 / 1850 Balance 2300 / 2300 35 / 35 -391 / -391 General: Cooperative, still very Lethargic HEENT: Atraumatic, PERRLA, EOMI, Normocephalic Oral: Moist Mucosa Neck: Supple, No JVD, Negative Carotid Bruits Lungs: Clear to auscultation, Normal air movement, No rhonchi, No wheeze, No rales Cardiovascular: Regular rate, Regular Rhythm, Normal S1, Normal S2, No murmurs Abdomen: Bowel Sounds Present, Soft, Non Tender, Non-Distended, No Hepato- splenomegaly Extremities: No clubbing, No cyanosis, No edema, Capillary Refill Less than 3 Seconds Skin: No rashes, No breakdown Musculoskeletal: - - Left lower extremity wrapped in Ata bandage. Lymphatic: No Cervical, Supraclavicular, or Inguinal Adenopathy Neurological: Cranial nerves II-XII grossly intact, Neuro grossly intact, - - very lethargic Psych/Mental Status: - - lethargic Microbiology Past 72 Hours 10/29/18 18:32 Bone - Ankle Gram Stain - Final 10/29/18 18:32 Bone - Ankle Wound Culture - Preliminary No growth-Final to follow Laboratory Results 10/30/18 15:55: POC Glucose 256 H 10/30/18 21:03: POC Glucose 263 H 10/31/18 07:00: Sodium 137, Potassium 4.1, Chloride 105, Carbon Dioxide 23.0, Anion Gap 9, BUN 26 H, Creatinine 1.53 H, Estim Creat Clear Calc 33.77, Est GFR (MDRD) Af Amer 44 L, Est GFR (MDRD) Non-Af 37 L, BUN/Creatinine Ratio 17.0, Glucose 164 H, Calcium 7.4 L 10/31/18 07:00: Total Bilirubin 2.00 H, Direct Bilirubin 1.55 H, AST 48 H, ALT 26, Alkaline Phosphatase 206 H, Total Protein 6.0 L, Albumin 2.0 L, Globulin 4.0 10/31/18 07:55: POC Glucose 173 H 10/31/18 12:19: POC Glucose 183 H Current Medications Acetaminophen (Tylenol) 650 mg PO Q6H PRN PRN PRN Reason: PAIN Last Admin: 10/31/18 09:16 Dose: 650 mg Atorvastatin Calcium (Lipitor) 40 mg PO QHS [facility] Last Admin: 10/30/18 21:06 Dose: 40 mg Docusate Sodium (Colace) 100 mg PO BID PRN PRN PRN Reason: Constipation Duloxetine HCl (Cymbalta) 60 mg PO DAILY [facility] Last Admin: 10/31/18 09:06 Dose: 60 mg Enoxaparin Sodium (Lovenox) 40 mg SC DAILY@0600 [facility] Last Admin: 10/31/18 06:17 Dose: 40 mg Ergocalciferol (Vitamin D) 50,000 unit PO Sa@0800 [facility] Gabapentin (Neurontin) 300 mg PO TIDCM [facility] Last Admin: 10/31/18 12:25 Dose: 300 mg Hydralazine HCl (Apresoline Iv) 10 mg IV Q4H PRN PRN PRN Reason: SBP > 160 Naloxone HCl 4 mg/ Dextrose 504 mls @ 0 mls/hr IV .Q0M PRN; Protocol PRN Reason: To maintain Resp. rate >10 Insulin Glargine (Lantus (Bkc)) 40 units SC QHS [facility] Last Admin: 10/30/18 21:08 Dose: 40 units Insulin Human Lispro (Humalog Kwikpen (Bkc)) 10 unit SC TIDCM [facility]; Protocol Last Admin: 10/31/18 12:24 Dose: 10 units Insulin Human Lispro (Humalog Kwikpen (Bkc)) 0 unit SC ACHS [facility]; Protocol Last Admin: 10/31/18 12:24 Dose: 1 units Lactobacillus Acidophilus (Acidophilus) 1 tablet PO BID [facility] Last Admin: 10/31/18 09:06 Dose: 1 tablet Loperamide HCl (Imodium) 2 mg PO Q4H PRN PRN PRN Reason: Constipation Lorazepam (Ativan) 0.5 mg PO QHS [facility] Last Admin: 10/30/18 21:06 Dose: 0.5 mg Magnesium Hydroxide (Milk Of Magnesia) 30 ml PO DAILY PRN PRN PRN Reason: Constipation Melatonin (Melatonin) 3 mg PO QHS [facility] Last Admin: 10/30/18 21:06 Dose: 3 mg Multivitamins/Minerals ([facility]ivitamin With Minerals) [facility] Last Admin: 10/31/18 08:54 Dose: 1 tablet Naloxone HCl (Narcan) 0.02 mg IV Q1M PRN PRN Reason: RR <10 and pt unresponsive Nutritional Formula (Lactose Free) (Glucerna Shake) 120 ml PO 4X/DAY [facility] Last Admin: 10/31/18 09:10 Dose: Not Given Oxycodone HCl (Oxyir) 10 mg PO Q6H PRN PRN PRN Reason: SEVERE PAIN (6-10/10) Last Admin: 10/31/18 01:24 Dose: 10 mg Oxycodone HCl (Oxycontin) 10 mg PO BID [facility] Last Admin: 10/31/18 09:09 Dose: 10 mg Pantoprazole Sodium (Protonix) 20 mg PO DAILY [facility] Last Admin: 10/31/18 09:06 Dose: 20 mg Promethazine HCl (Phenergan) 12.5 mg IV Q8H PRN PRN Reason: NAUSEA/VOMITING Last Admin: 10/30/18 09:26 Dose: 12.5 mg Sodium Chloride () 5 - 15 ml IV UD PRN PRN Reason: SALINE FLUSH Last Admin: 10/30/18 11:12 Dose: 10 ml Medical Necessity - Tobacco Use Smoking Status: Current every day smoker Tobacco Use: Cigarettes Assessment/Plan All Active Problems (Last Reviewed 06/05/18 @ 08:58 by Marta Santos) Complicated fracture of left calcaneum (Acute) Complicated fracture of left talus (Acute) Charcot's joint, left ankle and foot (Acute) Osteomyelitis of ankle or foot (Resolved) Diabetic foot infection (Resolved) Diabetic infected right heel ulcer (Resolved) 1. LLE charcot neuropathy s/p surgery * today is POD 3 * complains of pain, though she is very lethargic from pain meds * podiatry on board * dc dilaudid * pain management as per orthopedics * PT/OT on board * weight bearing status as per podiatry * 2. Acute metabolic encephalopathy due to medication vs liver impairment * AMS was thought to be due to dilaudid; dilaudid was dced, but patient remains very lethargic * total bilirubin has trended up to 2, from 1.5 yesterday; direct bilirubin is elevated at 1.5. AST/ALT/ALP is 48/26/206 * will get liver USG and check ammonia level * will hold long acting opiates. * 3. AK I likely prerenal due to hypotension * Cr down to 1.53 from 1.76 yesterday * continue hydrating with IVF and monitor * Hold current BP meds including chlorthalidone and lisinopril * 4. Hypertension: * BP meds on hold on account of hypotension and CARISA. * Blood pressure this morning is 100/38. We will continue holding BP meds. 5. Anxiety and depression: on Cymbalta 6. Hyperlipidemia: on statin. 7. GERD; on PPI 8. Diabetes mellitus: on insulin lantus 40IU qhs. on ISS. Accuchecks ACHS. DVT prophylaxis:on lovenox, as per podiatry 4. Code Visit Inpatient E&M: 31262 Subs Hosp L3
[2018-10-31 15:10] VITALS: BP 99/55; PULSE 91; RESP 16; TEMP 36.8; O2SAT 94
[2018-10-31 17:01] LABS: Bedside Glucose 170 mg/dL (70-110)
--- NOTE | 2018-10-31 17:03 | CASEMGMT ---
Social Work Note WILBER spoke with Lesly at [facility] who confirms pt was skilled at [facility]. Lesly states she will need pre-cert for pt to return. WILBER Faxed updated clinicals to Lesly at [facility]. Plan: Return to [facility] pending pre-cert Roberta Rojas [employer] CHASER, ROAD SIGN INSTALLER
[2018-10-31 19:33] VITALS: BP 136/55; PULSE 101; RESP 18; TEMP 37.4; O2SAT 94
[2018-10-31] MEDS: Lactulose 20 GM/30 ML UDC 10 GM PO (19:53)
[2018-10-31] MEDS: Atorvastatin Calcium 40 MG Tablet PO (22:23)
[2018-10-31] MEDS: LORazepam 0.5 MG Tablet PO (22:23)
[2018-10-31] MEDS: MELATONIN 3 MG TABLET PO (22:23)
[2018-10-31 22:36] LABS: Bedside Glucose 228 mg/dL (70-110)
--- NOTE | 2018-11-01 01:45 | NURSING ---
PT BLADDER SCANNED FOR 797 ML. UP TO BSC, ABLE TO URINATE FOR 200CC. PT REQUESTED TO BE TRANSFERRED TO TOILET TO URINATE. TRANSFERRED W/ASSIST X3. PT UNABLE TO URINATE. STRAIGHT CATH COMPLETED W/650CC OUTPUT. PT TOLERATED WELL.
[2018-11-01 02:00] VITALS: BP 135/62; PULSE 101; RESP 18; TEMP 37.2; O2SAT 96
[2018-11-01] MEDS: Tamsulosin HCl 0.4 MG Capsule PO ×2 (02:22→17:42)
[2018-11-01] MEDS: oxyCODONE 5 MG Tablet 10 MG PO ×3 (02:22→19:22)
[2018-11-01] MEDS: Enoxaparin 40 MG/0.4 ML Syringe SC (05:27)
[2018-11-01 06:17] LABS: Absolute Lymphocyte Count 1.84 X10^3/ul (0.83-4.51); Absolute Neutrophil Count 3.7 X10^3/uL (2.0-7.7); Basophil# 0.02 X10^3/uL; Basophil% 0.3 % (0-1); Eosinophil# 0.16 X10^3/uL; Eosinophils% 2.5 % (0-5); Hematocrit 27.2 % (37-47); Hemoglobin 8.7 g/dl (12.0-15.0); Lymphocyte # 1.84 X10^3/ul (4.0); Lymphocyte % 28.4 % (19-41); Mean Corpuscular Hgb 32.1 pg (27.0-32.0); Mean Corpuscular Volume 100.4 fL (81-99); Mean Platelet Vol. 10.6 fl (6.2-12.0); Monocyte# 0.72 X10^3/uL; Monocyte% 11.1 % (0-10); Neutrophil # 3.72 X10^3/uL (2.7-7.7); Neutrophil % 57.5 % (47-70); Platelet Count 102 K/mm3 (150-450); RBC Distribution Width CV 14.4 % (11.6-14.6); RBC Distribution Width SD 50.3 fl (35.1-43.9); Red Blood Count 2.71 M/mm3 (4.2-5.4); White Blood Count 6.5 K/mm3 (4.4-11.0)
[2018-11-01 06:20] LABS: POSITIVE COUNT NO; POSITIVE DIFFERENTIAL NO; POSITIVE MORPHOLOGY NO
[2018-11-01 06:34] LABS: ALB/GLOB Ratio 0.5 RATIO (0.9-2.4); AST(SGOT) 52 U/L (15-37); Alanine Aminotransfer ALT/SGPT 27 U/L (13-56); Albumin, Serum 1.9 g/dL (3.2-5.0); Alkaline Phosphatase 205 U/L (45-117); Anion Gap 11 (5-15); BUN 25 mg/dL (7-18); BUN/Creat Ratio 18.5 RATIO (10-20); Calcium,Total 7.8 mg/dL (8.5-10.1); Chloride 106 mmol/L (98-107); Creatinine, Serum 1.35 mg/dL (0.55-1.02); EST Glomerular Filtration Rate 42 mL/min (>60); Est Glom Filt Rate - Afr Amer 51 mL/min (>60); Estimated Creatinine Clearance 38.27 ml/min; Glucose 185 mg/dL (74-106); Potassium 3.9 mmol/L (3.5-5.1); Protein, Total 5.9 g/dL (6.4-8.2); Sodium Level 138 mmol/L (136-145)
[2018-11-01 06:55] LABS: Bedside Glucose 175 mg/dL (70-110)
[2018-11-01 08:00] VITALS: BP 112/57; PULSE 80; PULSE 98; RESP 18; TEMP 37.7; O2SAT 94
[2018-11-01 08:38] VITALS: O2SAT 92
[2018-11-01] MEDS: Insulin Lispro 100 UNIT/ML INSULN.PEN 10 UNIT SC ×3 (09:03→17:37)
[2018-11-01] MEDS: Insulin Lispro 100 UNIT/ML INSULN.PEN SC ×3 (09:04→17:38)
[2018-11-01] MEDS: Multivitamins,Ther W-Minerals Tablet 1 TABLET PO (09:04)
[2018-11-01] MEDS: DULoxetine Hcl 60 MG Capsule PO (09:04)
[2018-11-01] MEDS: Pantoprazole Sodium 20 MG Tablet PO (09:05)
--- NOTE | 2018-11-01 09:33 | PCM.PN.HOSP ---
Subjective: Patient seen and examined. She is much more alert today. She has no complaints and feels well. She denies any fever, any chills, and palpitations, any cough or chest pain, no abdominal pain, any diarrhea vomiting. She is on lactulose for hepatic encephalopathy. Patient denies any history of alcohol abuse and states he is never been told she has cirrhosis. Review of systems otherwise negative. Labs and vitals reviewed. Bilirubin trended up to about 2.2 today. Vitals/I&O's: Vital Signs Temp Pulse Resp BP Pulse Ox 99.8 F H 98 18 112/57 L 92 11/01/18 08:00 11/01/18 08:00 11/01/18 08:00 11/01/18 08:00 11/01/18 08:38 Oxygen Flow Rate (L/min) 3 Oxygen Delivery Method Room Air Weight: 189 lb 0.001 oz Body Mass Index (BMI) 32.4 Finger Stick Blood Glucose 197 Intake and Output for Last 24 Hours 10/30/18 10/31/18 11/01/18 23:59 23:59 23:59 Intake Total 1710 / 1710 1459 / 1459 1100 / 1100 Output Total 1675 / 1675 1850 / 1850 850 / 850 Balance 35 / 35 -391 / -391 250 / 250 General: Alert, Oriented x3, Cooperative, No apparent distress HEENT: Atraumatic, PERRLA, EOMI, Normocephalic Oral: Moist Mucosa Neck: Supple, No JVD, Negative Carotid Bruits Lungs: Clear to auscultation, Normal air movement, No rhonchi, No wheeze, No rales Cardiovascular: Regular rate, Regular Rhythm, Normal S1, Normal S2, No murmurs Abdomen: Bowel Sounds Present, Soft, Non Tender, Non-Distended, No Hepato-splenomegaly Extremities: No clubbing, No cyanosis, No edema, Capillary Refill Less than 3 Seconds Skin: No rashes, No breakdown Musculoskeletal: No Tenderness to Palpation of Joints or Extremities Lymphatic: No Cervical, Supraclavicular, or Inguinal Adenopathy Neurological: Cranial nerves II-XII grossly intact, Neuro grossly intact, - - Has mild asterixis Psych/Mental Status: Normal Affect, Appropriate, Alert and oriented to time, place, person, mood and affect Microbiology Past 72 Hours 10/29/18 18:32 Bone - Ankle Gram Stain - Final 10/29/18 18:32 Bone - Ankle Wound Culture - Preliminary No growth-Final to follow 10/29/18 18:32 Bone - Ankle Anaerobic Culture - Preliminary No growth in 48 hours. Laboratory Results 10/31/18 12:19: POC Glucose 183 H 10/31/18 12:38: Ammonia 49.0 H 10/31/18 16:32: POC Glucose 170 H 10/31/18 22:20: POC Glucose 228 H 11/01/18 05:58: WBC 6.5, RBC 2.71 L, Hgb 8.7 L, Hct 27.2 L, MCV 100.4 H, MCH 32.1 H, MCHC 32.0, RDW 14.4, RDW Differential 50.3 H, Plt Count 102 L, MPV 10.6, Immature Gran % (Auto) 0.200, Neut % (Auto) 57.5, Lymph % (Auto) 28.4, Russell % (Auto) 11.1 H, Eos % (Auto) 2.5, Baso % (Auto) 0.3, Absolute Neuts (auto) 3.7, Absolute Lymphs (auto) 1.84, Total Counted Not Reportable 11/01/18 05:58: Sodium 138, Potassium 3.9, Chloride 106, Carbon Dioxide 21.0, Anion Gap 11, BUN 25 H, Creatinine 1.35 H, Estim Creat Clear Calc 38.27, Est GFR (MDRD) Af Amer 51 L, Est GFR (MDRD) Non-Af 42 L, BUN/Creatinine Ratio 18.5, Glucose 185 H, Calcium 7.8 L, Total Bilirubin 2.20 H, AST 52 H, ALT 27, Alkaline Phosphatase 205 H, Total Protein 5.9 L, Albumin 1.9 L, Globulin 4.0, Albumin/Globulin Ratio 0.5 L 11/01/18 05:58: Ammonia 57.0 H 11/01/18 06:42: POC Glucose 175 H Diagnostic Data Ankle X-Ray 10/29/18 18:45 IMPRESSION: Anatomic alignment status post arthrodesis of the tibiotalar joint. Avascular necrosis of the talus. Narrowing of the tibiotalar and subtalar joints. Additional chronic findings are detailed above. Electronically Signed: Wanda Amato MD at 20:52 EST Tel , Service support , Foot X-Ray 10/29/18 18:45 IMPRESSION: 1. Documentation of surgical arthrodesis of the tibiotalar articulation as well as several the articulations of the hindfoot. 2. Osteoporosis. 3. Status post amputations of the phalanges of the fourth and fifth toes, most of the fourth metatarsal and the entire fifth metatarsal. Electronically Signed: Ksenia Yoo MD at 2:04 EST , Service support , Liver Ultrasound 10/31/18 12:25 IMPRESSION: Mild ascites. Mild coarse echotexture of the liver. Mild biliary prominence. Electronically Signed: Case Liu DO at 0:04 EST Tel [phone], Service support , Current Medications Atorvastatin Calcium (Lipitor) 40 mg PO QHS [facility] Last Admin: 10/31/18 22:23 Dose: 40 mg Docusate Sodium (Colace) 100 mg PO BID PRN PRN PRN Reason: Constipation Duloxetine HCl (Cymbalta) 60 mg PO DAILY [facility] Last Admin: 11/01/18 09:04 Dose: 60 mg Enoxaparin Sodium (Lovenox) 40 mg SC DAILY@0600 [facility] Last Admin: 11/01/18 05:27 Dose: 40 mg Ergocalciferol (Vitamin D) 50,000 unit PO Sa@0800 [facility] Hydralazine HCl (Apresoline Iv) 10 mg IV Q4H PRN PRN PRN Reason: SBP > 160 Naloxone HCl 4 mg/ Dextrose 504 mls @ 0 mls/hr IV .Q0M PRN; Protocol PRN Reason: To maintain Resp. rate >10 Insulin Glargine (Lantus (Bk)) 40 units SC QHS [facility] Last Admin: 10/31/18 22:23 Dose: 40 units Insulin Human Lispro (Humalog Kwikpen ([facility])) 10 unit SC TIDCM [facility]; Protocol Last Admin: 11/01/18 09:03 Dose: 10 units Insulin Human Lispro (Humalog Kwikpen (Bkc)) 0 unit SC ACHS [facility]; Protocol Last Admin: 11/01/18 09:04 Dose: 1 units Lactobacillus Acidophilus (Acidophilus) 1 tablet PO BID [facility] Last Admin: 11/01/18 09:04 Dose: 1 tablet Lactulose (Chronulac, Cephulac) 10 gm PO TID [facility] Loperamide HCl (Imodium) 2 mg PO Q4H PRN PRN PRN Reason: Constipation Lorazepam (Ativan) 0.5 mg PO QHS [facility] Last Admin: 10/31/18 22:23 Dose: 0.5 mg Magnesium Hydroxide (Milk Of Magnesia) 30 ml PO DAILY PRN PRN PRN Reason: Constipation Melatonin (Melatonin) 3 mg PO QHS [facility] Last Admin: 10/31/18 22:23 Dose: 3 mg Multivitamins/Minerals (Multivitamin With Minerals) 1 tablet PO DAILYCM [facility] Last Admin: 11/01/18 09:04 Dose: 1 tablet Naloxone HCl (Narcan) 0.02 mg IV Q1M PRN PRN Reason: RR <10 and pt unresponsive Nutritional Formula (Lactose Free) (Glucerna Shake) 120 ml PO 4X/DAY [facility] Last Admin: 11/01/18 09:05 Dose: Not Given Oxycodone HCl (Oxyir) 10 mg PO Q6H PRN PRN PRN Reason: SEVERE PAIN (6-10/10) Last Admin: 11/01/18 09:06 Dose: 10 mg Pantoprazole Sodium (Protonix) 20 mg PO DAILY [facility] Last Admin: 11/01/18 09:05 Dose: 20 mg Promethazine HCl (Phenergan) 12.5 mg IV Q8H PRN PRN Reason: NAUSEA/VOMITING Last Admin: 10/30/18 09:26 Dose: 12.5 mg Sodium Chloride () 5 - 15 ml IV UD PRN PRN Reason: SALINE FLUSH Last Admin: 10/30/18 11:12 Dose: 10 ml Tamsulosin HCl (Flomax) 0.4 mg PO DAILY@1730 [facility] Last Admin: 11/01/18 02:22 Dose: 0.4 mg Medical Necessity - Tobacco Use Smoking Status: Current every day smoker Tobacco Use: Cigarettes Assessment/Plan All Active Problems (Last Reviewed 06/05/18 @ 08:58 by Marta Santos) Complicated fracture of left calcaneum (Acute) Complicated fracture of left talus (Acute) Charcot's joint, left ankle and foot (Acute) Osteomyelitis of ankle or foot (Resolved) Diabetic foot infection (Resolved) Diabetic infected right heel ulcer (Resolved) 1. LLE charcot neuropathy s/p surgery today is POD 4 pain is well controlled opiates on hold o/a of acute metabolic encephalopathy PT/OT on board pain management as per podiatry weight bearing status as per podiatry 2. Acute hepatic encephalopathy opiates were stopped, but patient still remained lethargic ammonia was elevated, and bilirubin is up to 2.2 today has asterixis liver USG: coarse echotexture of liver; s/p cholecystectomy bilirubin ihas been up to 2.7 in the past(12/16/16), but has been fairly normal since then started on PO lactulose yesterday, patient is much more alert today will continue lactulose and titrate for 2-3 loose stools daily ammonia trended up to 57 from 49 cause of liver damage is still uncertain, though hypotension likely played a role will continue to monitor 3. AK I likely prerenal due to hypotension Resolving. Creatinine is down to 1.35. continue holding BP meds as BP has been well controlled. Continue hydration with IV fluid. 4. Macrocytic anemia hb is down to 8.7 today; was 10 yesterday may be due to blood loss from surgery and also hemodilution if Hb falls further, will consider further workup 5. urine retention: says she is unable to urinate. Had straight cath to relieve retention today. Patient unwilling to have lópez catheter inserted. Started on flomax; will continue. Straight cath prn 6. Hypertension: BP meds on hold on account of hypotension and CARISA. Blood pressure this morning is 100/38. We will continue holding BP meds. 7. Thrombocytopenia: platelets down to 102 today. Was 123 yesterday. Continue monitorin 8. Anxiety and depression: on Cymbalta 9. Hyperlipidemia: on statin. 10. GERD; on PPI 11. Diabetes mellitus: on insulin lantus 40IU qhs. on ISS. Accuchecks ACHS. DVT prophylaxis:on lovenox, as per podiatry. TO consider stopping if platelets fall to <100 Code Visit Inpatient E&M: 87718 Subs Hosp L3
--- NOTE | 2018-11-01 09:44 | PN_ITS ---
Subjective: Patient seen and examined. She is much more alert today. She has no complaints and feels well. She denies any fever, any chills, and palpitations, any cough or chest pain, no abdominal pain, any diarrhea vomiting. She is on lactulose for hepatic encephalopathy. Patient denies any history of alcohol abuse and states he is never been told she has cirrhosis. Review of systems otherwise negative. Labs and vitals reviewed. Bilirubin trended up to about 2.2 today. Vitals/I&O's: Vital Signs Temp Pulse Resp BP Pulse Ox 99.8 F H 98 18 112/57 L 92 11/01/18 08:00 11/01/18 08:00 11/01/18 08:00 11/01/18 08:00 11/01/18 08:38 Oxygen Flow Rate (L/min) 3 Oxygen Delivery Method Room Air Weight: 189 lb 0.001 oz Body Mass Index (BMI) 32.4 Finger Stick Blood Glucose 197 Intake and Output for Last 24 Hours 10/30/18 10/31/18 11/01/18 23:59 23:59 23:59 Intake Total 1710 / 1710 1459 / 1459 1100 / 1100 Output Total 1675 / 1675 1850 / 1850 850 / 850 Balance 35 / 35 -391 / -391 250 / 250 General: Alert, Oriented x3, Cooperative, No apparent distress HEENT: Atraumatic, PERRLA, EOMI, Normocephalic Oral: Moist Mucosa Neck: Supple, No JVD, Negative Carotid Bruits Lungs: Clear to auscultation, Normal air movement, No rhonchi, No wheeze, No rales Cardiovascular: Regular rate, Regular Rhythm, Normal S1, Normal S2, No murmurs Abdomen: Bowel Sounds Present, Soft, Non Tender, Non-Distended, No Hepato- splenomegaly Extremities: No clubbing, No cyanosis, No edema, Capillary Refill Less than 3 Seconds Skin: No rashes, No breakdown Musculoskeletal: No Tenderness to Palpation of Joints or Extremities Lymphatic: No Cervical, Supraclavicular, or Inguinal Adenopathy Neurological: Cranial nerves II-XII grossly intact, Neuro grossly intact, - - Has mild asterixis Psych/Mental Status: Normal Affect, Appropriate, Alert and oriented to time, place, person, mood and affect Microbiology Past 72 Hours 10/29/18 18:32 Bone - Ankle Gram Stain - Final 10/29/18 18:32 Bone - Ankle Wound Culture - Preliminary No growth-Final to follow 10/29/18 18:32 Bone - Ankle Anaerobic Culture - Preliminary No growth in 48 hours. Laboratory Results 10/31/18 12:19: POC Glucose 183 H 10/31/18 12:38: Ammonia 49.0 H 10/31/18 16:32: POC Glucose 170 H 10/31/18 22:20: POC Glucose 228 H 11/01/18 05:58: WBC 6.5, RBC 2.71 L, Hgb 8.7 L, Hct 27.2 L, MCV 100.4 H, MCH 32.1 H, MCHC 32.0, RDW 14.4, RDW Differential 50.3 H, Plt Count 102 L, MPV 10.6, Immature Gran % (Auto) 0.200, Neut % (Auto) 57.5, Lymph % (Auto) 28.4, Eddy % (Auto) 11.1 H, Eos % (Auto) 2.5, Baso % (Auto) 0.3, Absolute Neuts (auto) 3.7, Absolute Lymphs (auto) 1.84, Total Counted Not Reportable 11/01/18 05:58: Sodium 138, Potassium 3.9, Chloride 106, Carbon Dioxide 21.0, Anion Gap 11, BUN 25 H, Creatinine 1.35 H, Estim Creat Clear Calc 38.27, Est GFR (MDRD) Af Amer 51 L, Est GFR (MDRD) Non-Af 42 L, BUN/Creatinine Ratio 18.5, Glucose 185 H, Calcium 7.8 L, Total Bilirubin 2.20 H, AST 52 H, ALT 27, Alkaline Phosphatase 205 H, Total Protein 5.9 L, Albumin 1.9 L, Globulin 4.0, Albumin/Globulin Ratio 0.5 L 11/01/18 05:58: Ammonia 57.0 H 11/01/18 06:42: POC Glucose 175 H Diagnostic Data Ankle X-Ray 10/29/18 18:45 IMPRESSION: Anatomic alignment status post arthrodesis of the tibiotalar joint. Avascular necrosis of the talus. Narrowing of the tibiotalar and subtalar joints. Additional chronic findings are detailed above. Electronically Signed: Wanda Amato MD at 20:52 EST Tel , Service support , Foot X-Ray 10/29/18 18:45 IMPRESSION: 1. Documentation of surgical arthrodesis of the tibiotalar articulation as well as several the articulations of the hindfoot. 2. Osteoporosis. 3. Status post amputations of the phalanges of the fourth and fifth toes, most of the fourth metatarsal and the entire fifth metatarsal. Electronically Signed: Ksenia Yoo MD at 2:04 EST , Service support , Liver Ultrasound 10/31/18 12:25 IMPRESSION: Mild ascites. Mild coarse echotexture of the liver. Mild biliary prominence. Electronically Signed: Case Liu DO at 0:04 EST Tel [phone], Service support , Current Medications Atorvastatin Calcium (Lipitor) 40 mg PO QHS [facility] Last Admin: 10/31/18 22:23 Dose: 40 mg Docusate Sodium (Colace) 100 mg PO BID PRN PRN PRN Reason: Constipation Duloxetine HCl (Cymbalta) 60 mg PO DAILY [facility] Last Admin: 11/01/18 09:04 Dose: 60 mg Enoxaparin Sodium (Lovenox) 40 mg SC DAILY@0600 [facility] Last Admin: 11/01/18 05:27 Dose: 40 mg Ergocalciferol (Vitamin D) 50,000 unit PO Sa@0800 [facility] Hydralazine HCl (Apresoline Iv) 10 mg IV Q4H PRN PRN PRN Reason: SBP > 160 Naloxone HCl 4 mg/ Dextrose 504 mls @ 0 mls/hr IV .Q0M PRN; Protocol PRN Reason: To maintain Resp. rate >10 Insulin Glargine (Lantus (Bk)) 40 units SC QHS [facility] Last Admin: 10/31/18 22:23 Dose: 40 units Insulin Human Lispro (Humalog Kwikpen ([facility])) 10 unit SC TIDCM [facility]; Protocol Last Admin: 11/01/18 09:03 Dose: 10 units Insulin Human Lispro (Humalog Kwikpen (Bkc)) 0 unit SC ACHS [facility]; Protocol Last Admin: 11/01/18 09:04 Dose: 1 units Lactobacillus Acidophilus (Acidophilus) 1 tablet PO BID [facility] Last Admin: 11/01/18 09:04 Dose: 1 tablet Lactulose (Chronulac, Cephulac) 10 gm PO TID [facility] Loperamide HCl (Imodium) 2 mg PO Q4H PRN PRN PRN Reason: Constipation Lorazepam (Ativan) 0.5 mg PO QHS [facility] Last Admin: 10/31/18 22:23 Dose: 0.5 mg Magnesium Hydroxide (Milk Of Magnesia) 30 ml PO DAILY PRN PRN PRN Reason: Constipation Melatonin (Melatonin) 3 mg PO QHS [facility] Last Admin: 10/31/18 22:23 Dose: 3 mg Multivitamins/Minerals (Multivitamin With Minerals) 1 tablet PO DAILYCM [facility] Last Admin: 11/01/18 09:04 Dose: 1 tablet Naloxone HCl (Narcan) 0.02 mg IV Q1M PRN PRN Reason: RR <10 and pt unresponsive Nutritional Formula (Lactose Free) (Glucerna Shake) 120 ml PO 4X/DAY [facility] Last Admin: 11/01/18 09:05 Dose: Not Given Oxycodone HCl (Oxyir) 10 mg PO Q6H PRN PRN PRN Reason: SEVERE PAIN (6-10/10) Last Admin: 11/01/18 09:06 Dose: 10 mg Pantoprazole Sodium (Protonix) 20 mg PO DAILY [facility] Last Admin: 11/01/18 09:05 Dose: 20 mg Promethazine HCl (Phenergan) 12.5 mg IV Q8H PRN PRN Reason: NAUSEA/VOMITING Last Admin: 10/30/18 09:26 Dose: 12.5 mg Sodium Chloride () 5 - 15 ml IV UD PRN PRN Reason: SALINE FLUSH Last Admin: 10/30/18 11:12 Dose: 10 ml Tamsulosin HCl (Flomax) 0.4 mg PO DAILY@1730 [facility] Last Admin: 11/01/18 02:22 Dose: 0.4 mg Medical Necessity - Tobacco Use Smoking Status: Current every day smoker Tobacco Use: Cigarettes Assessment/Plan All Active Problems (Last Reviewed 06/05/18 @ 08:58 by Marta Santos) Complicated fracture of left calcaneum (Acute) Complicated fracture of left talus (Acute) Charcot's joint, left ankle and foot (Acute) Osteomyelitis of ankle or foot (Resolved) Diabetic foot infection (Resolved) Diabetic infected right heel ulcer (Resolved) 1. LLE charcot neuropathy s/p surgery * today is POD 4 * pain is well controlled * opiates on hold o/a of acute metabolic encephalopathy * PT/OT on board * pain management as per podiatry * weight bearing status as per podiatry * 2. Acute hepatic encephalopathy * opiates were stopped, but patient still remained lethargic * ammonia was elevated, and bilirubin is up to 2.2 today * has asterixis * liver USG: coarse echotexture of liver; s/p cholecystectomy * bilirubin ihas been up to 2.7 in the past(12/16/16), but has been fairly normal since then * started on PO lactulose yesterday, patient is much more alert today * will continue lactulose and titrate for 2-3 loose stools daily * ammonia trended up to 57 from 49 * cause of liver damage is still uncertain, though hypotension likely played a role * will continue to monitor * * 3. AK I likely prerenal due to hypotension * Resolving. Creatinine is down to 1.35. * continue holding BP meds as BP has been well controlled. * Continue hydration with IV fluid. * 4. Macrocytic anemia * hb is down to 8.7 today; was 10 yesterday * may be due to blood loss from surgery and also hemodilution * if Hb falls further, will consider further workup * 5. urine retention: * says she is unable to urinate. * Had straight cath to relieve retention today. * Patient unwilling to have lópez catheter inserted. * Started on flomax; will continue. * Straight cath prn * 6. Hypertension: * BP meds on hold on account of hypotension and CARISA. * Blood pressure this morning is 100/38. We will continue holding BP meds. 7. Thrombocytopenia: platelets down to 102 today. Was 123 yesterday. Continue monitorin 8. Anxiety and depression: on Cymbalta 9. Hyperlipidemia: on statin. 10. GERD; on PPI 11. Diabetes mellitus: on insulin lantus 40IU qhs. on ISS. Accuchecks TWILA. DVT prophylaxis:on lovenox, as per podiatry. TO consider stopping if platelets fall to <100 Code Visit Inpatient E&M: 88376 Subs Hosp L3
--- NOTE | 2018-11-01 09:48 | PN_ITS ---
Subjective: This 58-year-old medically complicated patient was seen this morning for follow up on left foot/ankle arthrodesis performed on 10/29/[address] Luke. She is on going moderate to severe pain and her Tylenol is discontinued due to her liver issues. She continues on oxycodone. She continues to elevate the limb. She does have urinary retention in which she was started on Flomax this morning and she has continued straight catheterization. She denies fever, chills, nausea, vomiting, loss of appetite, shortness of breath, chest pain, or calf pain. She continues to use her incentive spirometer and has not placed any weight on the surgical limb. She is eager to return to [facility]. - Physical Exam General: Alert, Oriented x3, Cooperative HEENT: Atraumatic Extremities: No cyanosis, Capillary Refill Less than 3 Seconds - All remaining digits left foot, No Calf Tenderness - Negative Carr sign bilateral Skin: Ulcer/ Wound - Dressing and left lower extremity splint are clean dry and intact without strikethrough or surrounding erythema or streaking Musculoskeletal: - - Rectus left ankle position noted. Active range of motion digits left foot Neurological: Sensory exam intact to light touch and pain, - Psych/Mental Status: Normal Affect, Appropriate Vital Signs Temp Pulse Resp BP Pulse Ox 99.8 F H 98 18 112/57 L 92 11/01/18 08:00 11/01/18 08:00 11/01/18 08:00 11/01/18 08:00 11/01/18 08:38 Oxygen Flow Rate (L/min) 3 Oxygen Delivery Method Room Air Weight: 85.729 kg Body Mass Index (BMI) 32.4 Finger Stick Blood Glucose 197 Intake and Output for Last 24 Hours 10/30/18 10/31/18 11/01/18 23:59 23:59 23:59 Intake Total 1710 / 1710 1459 / 1459 1100 / 1100 Output Total 1675 / 1675 1850 / 1850 850 / 850 Balance 35 / 35 -391 / -391 250 / 250 Microbiology Past 72 Hours 10/29/18 18:32 Gram Stain - Final Bone - Ankle Wound Culture - Preliminary No growth-Final to follow Anaerobic Culture - Preliminary No growth in 48 hours. Laboratory Tests Past 24 Hrs 10/31/18 11/01/18 11/01/18 12:38 05:58 05:58 WBC 6.5 RBC 2.71 L Hgb 8.7 L Hct 27.2 L MCV 100.4 H MCH 32.1 H MCHC 32.0 RDW 14.4 RDW Differential 50.3 H Plt Count 102 L MPV 10.6 Immature Gran % (Auto) 0.200 Neut % (Auto) 57.5 Lymph % (Auto) 28.4 Bucks % (Auto) 11.1 H Eos % (Auto) 2.5 Baso % (Auto) 0.3 Absolute Neuts (auto) 3.7 Absolute Lymphs (auto) 1.84 Total Counted Not Reportable Sodium 138 Potassium 3.9 Chloride 106 Carbon Dioxide 21.0 Anion Gap 11 BUN 25 H Creatinine 1.35 H Estim Creat Clear Calc 38.27 Est GFR (MDRD) Af Amer 51 L Est GFR (MDRD) Non-Af 42 L BUN/Creatinine Ratio 18.5 Glucose 185 H Calcium 7.8 L Total Bilirubin 2.20 H AST 52 H ALT 27 Alkaline Phosphatase 205 H Ammonia 49.0 H Total Protein 5.9 L Albumin 1.9 L Globulin 4.0 Albumin/Globulin Ratio 0.5 L 11/01/18 05:58 WBC RBC Hgb Hct MCV MCH MCHC RDW RDW Differential Plt Count MPV Immature Gran % (Auto) Neut % (Auto) Lymph % (Auto) [place]ucks % (Auto) Eos % (Auto) Baso % (Auto) Absolute Neuts (auto) Absolute Lymphs (auto) Total Counted Sodium Potassium Chloride Carbon Dioxide Anion Gap BUN Creatinine Estim Creat Clear Calc Est GFR (MDRD) Af Amer Est GFR (MDRD) Non-Af BUN/Creatinine Ratio Glucose Calcium Total Bilirubin AST ALT Alkaline Phosphatase Ammonia 57.0 H Total Protein Albumin Globulin Albumin/Globulin Ratio POC Glucose 11/01/18 10/31/18 10/31/18 06:42 22:20 16:32 POC Glucose 175 H 228 H 170 H 10/31/18 12:19 POC Glucose 183 H Medical Necessity - Tobacco Use Smoking Status: Current every day smoker Tobacco Use: Cigarettes Assessment/Plan All Active Problems (Last Reviewed 06/05/18 @ 08:58 by Marta Santos) Complicated fracture of left calcaneum (Acute) Complicated fracture of left talus (Acute) Charcot's joint, left ankle and foot (Acute) Osteomyelitis of ankle or foot (Resolved) Diabetic foot infection (Resolved) Diabetic infected right heel ulcer (Resolved) Charcot Neuroarthropathy, left foot/ankle s/p tibiotalocalcaneal and talonavicular arthrodesis on 10/29/18 Diabetes with peripheral neuropathy Hypotension status improving Anxiety, Depression Tobacco Dependence/Abuse Vitamin D Deficiency Urinary retention Charcot Neuroarthropathy, left foot/ankle s/p tibiotalocalcaneal and talonavicular arthrodesis on 10/29/[address] Luke -Leave dressing/splint clean, dry, intact. -No weightbearing left foot -Must keep the left foot elevated at all times, keep heel offloaded with pillows -Pain management: Oxycodone/Oxyir -DVT Prophylaxis: Lovenox 40mg once daily subcutaneous -Incentive Spirometry hourly while awake Diabetes with peripheral neuropathy, recent hypotension, Hyperlipidemia, Anxiety, Depression, increased creatinine, urinary retention - appreciate medicine team's assistance. It is noted straight catheterization was performed today, bladder scan has been completed, and she was started on Flomax this mor laurie. It is noted her creatinine has stabilized. Her reduced hemoglobin level is noted and this will be monitored. She remains afebrile and her vital signs are overall stable this morning. She does not demonstrate any leukocytosis. Vitamin D Deficiency - patient on 50,000 units ergocalciferol PO twice a week. Smoking cessation encouraged to optimize healing. Continued glycemic control and nutritional supplementation is recommended to optimize healing. Discharge Planning: From foot/ankle standpoint ok to discharge back to [facility]. Resolution of urinary retention and continued medical stabilization is needed prior to discharge back to [facility]. I answered all of the patient's questions. Please not hesitate to contact me if you have further questions or concerns. Carolina Connelly DPM, FACFAS [facility] [phone]
[2018-11-01 11:41] LABS: Bedside Glucose 235 mg/dL (70-110)
[2018-11-01] MEDS: 0.9% Normal Saline 1,000 ML 125 ML IV ×2 (13:08→20:31)
[2018-11-01] MEDS: Lactulose 20 GM/30 ML UDC 10 GM PO ×2 (13:11→22:25)
[2018-11-01 14:00] VITALS: BP 108/49; PULSE 96; PULSE 97; RESP 18; TEMP 36.7; O2SAT 95; O2SAT 98
[2018-11-01 16:16] LABS: Bedside Glucose 222 mg/dL (70-110)
--- NOTE | 2018-11-01 16:52 | CASEMGMT ---
Social Work Note SW faxed updated clinicals to Lesly at [place]. Plan: [facility] pending pre-cert Roberta Rojas TAFFY PULLER, [employer]OTH CUTTER
[2018-11-01 20:27] VITALS: BP 127/66; PULSE 101; RESP 18; TEMP 37.6; O2SAT 96
[2018-11-01] MEDS: MELATONIN 3 MG TABLET PO (22:27)
[2018-11-01] MEDS: Atorvastatin Calcium 40 MG Tablet PO (22:27)
[2018-11-01] MEDS: LORazepam 0.5 MG Tablet PO (22:33)
[2018-11-01 22:41] LABS: Bedside Glucose 146 mg/dL (70-110)
[2018-11-02 02:44] VITALS: BP 110/52; PULSE 101; RESP 18; TEMP 36.8; O2SAT 97
[2018-11-02] MEDS: oxyCODONE 5 MG Tablet 10 MG PO ×3 (03:48→19:32)
[2018-11-02] MEDS: Lactulose 20 GM/30 ML UDC 10 GM PO ×3 (06:31→20:56)
[2018-11-02 06:55] LABS: ALB/GLOB Ratio 0.5 RATIO (0.9-2.4); AST(SGOT) 50 U/L (15-37); Alanine Aminotransfer ALT/SGPT 27 U/L (13-56); Albumin, Serum 1.8 g/dL (3.2-5.0); Alkaline Phosphatase 210 U/L (45-117); Anion Gap 8 (5-15); BUN 21 mg/dL (7-18); BUN/Creat Ratio 16.2 RATIO (10-20); Calcium,Total 7.6 mg/dL (8.5-10.1); Chloride 104 mmol/L (98-107); EST Glomerular Filtration Rate 44 mL/min (>60); Est Glom Filt Rate - Afr Amer 54 mL/min (>60); Estimated Creatinine Clearance 39.74 ml/min; Globulin 3.9 g/dL (2.2-4.2); Glucose 137 mg/dL (74-106); Potassium 3.8 mmol/L (3.5-5.1); Protein, Total 5.7 g/dL (6.4-8.2); Sodium Level 137 mmol/L (136-145)
[2018-11-02 07:09] LABS: Absolute Lymphocyte Count 1.57 X10^3/ul (0.83-4.51); Absolute Neutrophil Count 2.6 X10^3/uL (2.0-7.7); Basophil# 0.01 X10^3/uL; Basophil% 0.2 % (0-1); Eosinophils% 2.1 % (0-5); Hematocrit 24.7 % (37-47); Hemoglobin 8.2 g/dl (12.0-15.0); Lymphocyte # 1.57 X10^3/ul (4.0); Lymphocyte % 32.9 % (19-41); Mean Corp Hgb Conc 33.2 g/gl (32-36); Mean Corpuscular Volume 96.5 fL (81-99); Mean Platelet Vol. 10.4 fl (6.2-12.0); Monocyte# 0.48 X10^3/uL; Monocyte% 10.1 % (0-10); Neutrophil % 54.5 % (47-70); POSITIVE COUNT NO; POSITIVE DIFFERENTIAL NO; POSITIVE MORPHOLOGY NO; Platelet Count 114 K/mm3 (150-450); RBC Distribution Width CV 14.2 % (11.6-14.6); RBC Distribution Width SD 49.5 fl (35.1-43.9); Red Blood Count 2.56 M/mm3 (4.2-5.4); White Blood Count 4.8 K/mm3 (4.4-11.0)
[2018-11-02 07:25] VITALS: O2SAT 91
--- NOTE | 2018-11-02 07:29 | NURSING ---
This nurse aware that Platelets are 114 this morning and order is to give lovenox if above 100. Will notify pharmacy and hospitalist to get order to stop the hold on lovenox.
[2018-11-02 08:10] VITALS: BP 105/40; PULSE 88; RESP 16; TEMP 37.1; O2SAT 96
[2018-11-02 08:10] LABS: International Normalized Ratio 1.3; Prothrombin Time (Protime)PT. 16.2 SECONDS (11.7-14.9)
[2018-11-02] MEDS: Enoxaparin 40 MG/0.4 ML Syringe SC (08:23)
[2018-11-02] MEDS: Multivitamins,Ther W-Minerals Tablet 1 TABLET PO (08:23)
[2018-11-02] MEDS: DULoxetine Hcl 60 MG Capsule PO (08:24)
[2018-11-02] MEDS: Pantoprazole Sodium 20 MG Tablet PO (08:25)
--- NOTE | 2018-11-02 08:30 | NURSING ---
tHIS NURSE TALKED Alicia BILLINGS FROM PHARMACY. HE WAS AWARE OF PLTS OF 114 AND ORDER TO GIVE LOVENOX IF GREATER THEN 100. HE KEPT THE LOVENOX ON HOLD BUT PUT ONE TIME ORDER IN SO IT COULD BE GIVEN.
[2018-11-02 08:36] LABS: Bedside Glucose 140 mg/dL (70-110)
--- NOTE | 2018-11-02 09:32 | PN_ITS ---
Subjective: Patient was seen this morning for follow up, she is s/p left TTC and talonavicular arthrodesis secondary to charcot neuroarthropathy on 10/29/18. She relates pain is less to foot/ankle. She relates she has been able to urinate some, but did have straight cath ~500mL this morning. Creatinine is down to 1.30 this morning. Patient still with hypotension this morning. Patient being managed for acute hepatic encephalopathy. Patient has no new complaints today, does not relate to any fever, chills, nausea or vomiting, nor any shortness of breath, c hest pain or calf pain. - Physical Exam General: Alert, Oriented x3, Cooperative, No apparent distress Extremities: Capillary Refill Less than 3 Seconds, No Calf Tenderness, - - Dressing/splint clean, dry and intact left foot/ankle with heel offloaded. CFT < 2 seconds to all toes on the left foot with normal temperature and color, she is able to wiggle the toes. Less pain to the left foot/ankle. Vital Signs Temp Pulse Resp BP Pulse Ox 98.8 F 88 16 105/40 L 96 11/02/18 08:10 11/02/18 08:10 11/02/18 08:10 11/02/18 08:10 11/02/18 08:10 Oxygen Flow Rate (L/min) 3 Oxygen Delivery Method Room Air Weight: 85.729 kg Body Mass Index (BMI) 32.4 Finger Stick Blood Glucose 197 Intake and Output for Last 24 Hours 10/31/18 11/01/18 11/02/18 23:59 23:59 23:59 Intake Total 1459 / 1459 2346 / 2346 1681 / 1681 Output Total 1850 / 1850 1500 / 1500 950 / 950 Balance -391 / -391 846 / 846 731 / 731 Microbiology Past 72 Hours 10/29/18 18:32 Gram Stain - Final Bone - Ankle Wound Culture - Final No growth aerobically. Anaerobic Culture - Preliminary No growth in 48 hours. Laboratory Tests Past 24 Hrs 11/02/18 11/02/18 11/02/18 05:47 05:47 05:47 WBC 4.8 RBC 2.56 L Hgb 8.2 L Hct 24.7 L MCV 96.5 MCH 32.0 MCHC 33.2 RDW 14.2 RDW Differential 49.5 H Plt Count 114 L MPV 10.4 Immature Gran % (Auto) 0.200 Neut % (Auto) 54.5 Lymph % (Auto) 32.9 [place]ff[place] % (Auto) 10.1 H Eos % (Auto) 2.1 Baso % (Auto) 0.2 Absolute Neuts (auto) 2.6 Absolute Lymphs (auto) 1.57 Total Counted Not Reportable PT INR Sodium 137 Potassium 3.8 Chloride 104 Carbon Dioxide 25.0 Anion Gap 8 BUN 21 H Creatinine 1.30 H Estim Creat Clear Calc 39.74 Est GFR (MDRD) Af Amer 54 L Est GFR (MDRD) Non-Af 44 L BUN/Creatinine Ratio 16.2 Glucose 137 H Calcium 7.6 L Total Bilirubin 2.40 H AST 50 H ALT 27 Alkaline Phosphatase 210 H Total Protein 5.7 L Albumin 1.8 L Globulin 3.9 Albumin/Globulin Ratio 0.5 L Hepatitis A IgM Ab Pending Hepatitis A Ab Total Pending Hep Bs Antigen Pending Hep B Core Total Ab Pending Hep B Core IgM Ab Pending 11/02/18 07:45 WBC RBC Hgb Hct MCV MCH MCHC RDW RDW Differential Plt Count MPV Immature Gran % (Auto) Neut % (Auto) Lymph % (Auto) [place] % (Auto) Eos % (Auto) Baso % (Auto) Absolute Neuts (auto) Absolute Lymphs (auto) Total Counted PT 16.2 H INR 1.3 Sodium Potassium Chloride Carbon Dioxide Anion Gap BUN Creatinine Estim Creat Clear Calc Est GFR (MDRD) Af Amer Est GFR (MDRD) Non-Af BUN/Creatinine Ratio Glucose Calcium Total Bilirubin AST ALT Alkaline Phosphatase Total Protein Albumin Globulin Albumin/Globulin Ratio Hepatitis A IgM Ab Hepatitis A Ab Total Hep Bs Antigen Hep B Core Total Ab Hep B Core IgM Ab POC Glucose 11/02/18 11/01/18 11/01/18 08:14 22:19 16:10 POC Glucose 140 H 146 H 222 H 11/01/18 11:34 POC Glucose 235 H Medical Necessity - Tobacco Use Smoking Status: Current every day smoker Tobacco Use: Cigarettes Assessment/Plan All Active Problems (Last Reviewed 06/05/18 @ 08:58 by Marta Santos) Complicated fracture of left calcaneum (Acute) Complicated fracture of left talus (Acute) Charcot's joint, left ankle and foot (Acute) Osteomyelitis of ankle or foot (Resolved) Diabetic foot infection (Resolved) Diabetic infected right heel ulcer (Resolved) Charcot Neuroarthropathy, left foot/ankle s/p tibiotalocalcaneal and talonavicular arthrodesis on 10/29/18 Diabetes with peripheral neuropathy Hypotension status improving Anxiety, Depression Tobacco Dependence/Abuse Vitamin D Deficiency Urinary retention Charcot Neuroarthropathy, left foot/ankle s/p tibiotalocalcaneal and talonavicular arthrodesis on 10/29/18 -Leave dressing/splint clean, dry, intact. No suspicion of infection or DVT at this time. -No weightbearing left foot -Must keep the left foot elevated at all times, keep heel offloaded with pillows -Pain management: Oxyir -DVT Prophylaxis: Lovenox 40mg once daily subcutaneous pending platelets -Incentive Spirometry hourly while awake Diabetes with peripheral neuropathy, recent hypotension, Hyperlipidemia, Anxiety , Depression, increased creatinine (trending down), urinary retention, acute hepatic encephalopathy - appreciate medicine team's assistance. Also her reduced hemoglobin level is noted and this will be monitored, there has been no active bleeding from foot/ankle surgical site since surgery. She remains afebrile and her vital signs are overall stable this morning (still with hypotension). She does not demonstrate any leukocytosis. Vitamin D Deficiency - patient on 50,000 units ergocalciferol PO twice a week. Smoking cessation encouraged to optimize healing. Continued glycemic control and nutritional supplementation is recommended to optimize healing. Discharge Planning: From foot/ankle standpoint ok to discharge back to [place], but continued medical stabilization is needed prior to discharge back to [facility].
[2018-11-02] MEDS: Insulin Lispro 100 UNIT/ML INSULN.PEN 10 UNIT SC (11:37)
[2018-11-02] MEDS: Insulin Lispro 100 UNIT/ML INSULN.PEN SC ×2 (11:38→22:02)
[2018-11-02 11:51] LABS: Bedside Glucose 242 mg/dL (70-110)
[2018-11-02 11:59] LABS: LDH 218 U/L (84-246)
[2018-11-02 14:11] VITALS: BP 112/47; PULSE 93; RESP 18; TEMP 37.3; O2SAT 95
--- NOTE | 2018-11-02 14:16 | NURSING ---
Bladder scanned for 673. No void yet today. Pt states she feels like she can urinate. up on bsc at this time. Able to Urinate 350ml. Back in bed and Bladder scanned for 317. Will continue to monitor.
--- NOTE | 2018-11-02 14:38 | NURSING ---
Pt refusing to get in chair. She refused to eat lunch earlier and now this nurse has encouraged it more. Pt wants Rice Krispies x2 bowls which she had this morning. Pt states thats all she eats at the long-term. This nurse helped pt pick out a food for lunch that was more appropriate.
--- NOTE | 2018-11-02 14:51 | PCM.PN.HOSP ---
Subjective: Patient seen and examined. She remains alert and has no complaints. She denies any fever, chills, cough, chest pain, SOB, diarrhea or vomiting. Review of systems is otherwise negative. labs and vitals reviewed. Total bilirubin trended up slightly to 2.4. hepatitis panel is pending. Vitals/I&O's: Vital Signs Temp Pulse Resp BP Pulse Ox 99.1 F 93 18 112/47 L 95 11/02/18 14:11 11/02/18 14:11 11/02/18 14:11 11/02/18 14:11 11/02/18 14:11 Oxygen Flow Rate (L/min) 3 Oxygen Delivery Method Room Air Weight: 189 lb 0.001 oz Body Mass Index (BMI) 32.4 Finger Stick Blood Glucose 197 Intake and Output for Last 24 Hours 10/31/18 11/01/18 11/02/18 23:59 23:59 23:59 Intake Total 1459 / 1459 2346 / 2346 2281 / 2281 Output Total 1850 / 1850 1500 / 1500 1300 / 1300 Balance -391 / -391 846 / 846 981 / 981 General: Alert, Oriented x3, Cooperative, No apparent distress HEENT: Atraumatic, PERRLA, EOMI, Normocephalic; tinge of jaundice of sclera Oral: Moist Mucosa Neck: Supple, No JVD, Negative Carotid Bruits Lungs: Clear to auscultation, Normal air movement, No rhonchi, No wheeze, No rales Cardiovascular: Regular rate, Regular Rhythm, Normal S1, Normal S2, No murmurs Abdomen: Bowel Sounds Present, Soft, Non Tender, Non-Distended, No Hepato-splenomegaly Extremities: No clubbing, No cyanosis, No edema, Capillary Refill Less than 3 Seconds Skin: No rashes, No breakdown Musculoskeletal: No Tenderness to Palpation of Joints or Extremities Lymphatic: No Cervical, Supraclavicular, or Inguinal Adenopathy Neurological: Cranial nerves II-XII grossly intact, Neuro grossly intact, - - Has mild asterixis Psych/Mental Status: Normal Affect, Appropriate, Alert and oriented to time, place, person, mood and affect Microbiology Past 72 Hours 10/29/18 18:32 Bone - Ankle Gram Stain - Final 10/29/18 18:32 Bone - Ankle Wound Culture - Final No growth aerobically. 10/29/18 18:32 Bone - Ankle Anaerobic Culture - Preliminary No growth in 48 hours. Laboratory Results 11/01/18 16:10: POC Glucose 222 H 11/01/18 22:19: POC Glucose 146 H 11/02/18 05:47: WBC 4.8, RBC 2.56 L, Hgb 8.2 L, Hct 24.7 L, MCV 96.5, MCH 32.0, MCHC 33.2, RDW 14.2, RDW Differential 49.5 H, Plt Count 114 L, MPV 10.4, Immature Gran % (Auto) 0.200, Neut % (Auto) 54.5, Lymph % (Auto) 32.9, [place] % (Auto) 10.1 H, Eos % (Auto) 2.1, Baso % (Auto) 0.2, Absolute Neuts (auto) 2.6, Absolute Lymphs (auto) 1.57, Total Counted Not Reportable 11/02/18 05:47: Sodium 137, Potassium 3.8, Chloride 104, Carbon Dioxide 25.0, Anion Gap 8, BUN 21 H, Creatinine 1.30 H, Estim Creat Clear Calc 39.74, Est GFR (MDRD) Af Amer 54 L, Est GFR (MDRD) Non-Af 44 L, BUN/Creatinine Ratio 16.2, Glucose 137 H, Calcium 7.6 L, Total Bilirubin 2.40 H, AST 50 H, ALT 27, Alkaline Phosphatase 210 H, Total Protein 5.7 L, Albumin 1.8 L, Globulin 3.9, Albumin/Globulin Ratio 0.5 L 11/02/18 05:47: Hepatitis A IgM Ab Pending, Hepatitis A Ab Total Pending, Hep Bs Antigen Pending, Hep B Core Total Ab Pending, Hep B Core IgM Ab Pending 11/02/18 05:47: Lactate Dehydrogenase 218 11/02/18 05:47: Haptoglobin Pending 11/02/18 07:45: PT 16.2 H, INR 1.3 11/02/18 08:14: POC Glucose 140 H 11/02/18 11:35: POC Glucose 242 H Current Medications Atorvastatin Calcium (Lipitor) 40 mg PO QHS IDA Last Admin: 11/01/18 22:27 Dose: 40 mg Docusate Sodium (Colace) 100 mg PO BID PRN PRN PRN Reason: Constipation Duloxetine HCl (Cymbalta) 60 mg PO DAILY [facility] Last Admin: 11/02/18 08:24 Dose: 60 mg Enoxaparin Sodium (Lovenox) 40 mg SC DAILY@0600 [facility] Last Admin: 11/01/18 05:27 Dose: 40 mg Ergocalciferol (Vitamin D) 50,000 unit PO Sa@0800 [facility] Hydralazine HCl (Apresoline Iv) 10 mg IV Q4H PRN PRN PRN Reason: SBP > 160 Naloxone HCl 4 mg/ Dextrose 504 mls @ 0 mls/hr IV .Q0M PRN; Protocol PRN Reason: To maintain Resp. rate >10 Insulin Glargine (Lantus (Bkc)) 40 units SC QHS [facility] Last Admin: 11/01/18 23:09 Dose: 40 units Insulin Human Lispro (Humalog Kwikpen (Bkc)) 10 unit SC TIDCM [facility]; Protocol Last Admin: 11/02/18 11:37 Dose: 10 units Insulin Human Lispro (Humalog Kwikpen (Bkc)) 0 unit SC ACHS [facility]; Protocol Last Admin: 11/02/18 11:38 Dose: 3 units Lactobacillus Acidophilus (Acidophilus) 1 tablet PO BID [facility] Last Admin: 11/02/18 08:25 Dose: 1 tablet Lactulose (Chronulac, Cephulac) 10 gm PO TID [facility] Last Admin: 11/02/18 14:11 Dose: 10 gm Loperamide HCl (Imodium) 2 mg PO Q4H PRN PRN PRN Reason: Constipation Lorazepam (Ativan) 0.5 mg PO QHS [facility] Last Admin: 11/01/18 22:33 Dose: 0.5 mg Magnesium Hydroxide (Milk Of Magnesia) 30 ml PO DAILY PRN PRN PRN Reason: Constipation Melatonin (Melatonin) 3 mg PO QHS [facility] Last Admin: 11/01/18 22:27 Dose: 3 mg Multivitamins/Minerals (Multivitamin With Minerals) [facility] Last Admin: 11/02/18 08:23 Dose: 1 tablet Naloxone HCl (Narcan) 0.02 mg IV Q1M PRN PRN Reason: RR <10 and pt unresponsive Oxycodone HCl (Oxyir) 10 mg PO Q6H PRN PRN PRN Reason: SEVERE PAIN (6-08/08) Last Admin: 11/02/18 09:54 Dose: 10 mg Pantoprazole Sodium (Protonix) 20 mg PO DAILY [facility] Last Admin: 11/02/18 08:25 Dose: 20 mg Promethazine HCl (Phenergan) 12.5 mg IV Q8H PRN PRN Reason: NAUSEA/VOMITING Last Admin: 10/30/18 09:26 Dose: 12.5 mg Sodium Chloride () 5 - 15 ml IV UD PRN PRN Reason: SALINE FLUSH Last Admin: 10/30/18 11:12 Dose: 10 ml Tamsulosin HCl (Flomax) 0.4 mg PO DAILY@1730 [facility] Last Admin: 11/01/18 17:42 Dose: 0.4 mg Medical Necessity - Tobacco Use Smoking Status: Current every day smoker Tobacco Use: Cigarettes Assessment/Plan All Active Problems (Last Reviewed 06/05/18 @ 08:58 by Marta Santos) Complicated fracture of left calcaneum (Acute) Complicated fracture of left talus (Acute) Charcot's joint, left ankle and foot (Acute) Osteomyelitis of ankle or foot (Resolved) Diabetic foot infection (Resolved) Diabetic infected right heel ulcer (Resolved) 1. LLE charcot neuropathy s/p surgery today is POD 5 pain is well controlled opiates on hold o/a of acute metabolic encephalopathy PT/OT on board pain management as per podiatry weight bearing status as per podiatry 2. Acute hepatic encephalopathy has improved significantly patient is now A) x 3; on lactulose cause of hepatitis is still not clear; I am suspecting that based on coarse echotexture of liver per [facility], she may have an underlying cirrhosis. hepatitis panel ordered and is pending bilirubin has trended up slightly to 2.4 continue lactulose and titrate for 2-3 loose stools daily Clinisync checked; no record of patient being previously diagnosed with cirrhosis or hepatitis, though review of labs showed she had had a peak in toal bilirubin of 2.7 carin in 2017 LDH is WNL, haptoglobin is pending, to rule out hemolytic anemia, as Hb has fallen to 8.2; 3. AK I likely prerenal due to hypotension Resolving. Creatinine is down to 1.30. baseline Cr is 0.8 continue holding BP meds as BP has been well controlled whilst off meds will continue gentle hydration with IVF. encourage oral hydration 4. Anemia hb is down to 8.2 today from 8.7 yesterday repeated blood draws likely play a role currently asymptomatic check iron panel. will defer transfusion until Hb falls to <7 5. urine retention: improving on flomax straight cath prn 6. Hypertension: BP meds on hold on account of hypotension and CARISA. BP controlled on no oral meds. We will continue holding BP meds. 7. Thrombocytopenia: platelets 114 today. continue monitoring. 8. Anxiety and depression: on Cymbalta 9. Hyperlipidemia: on statin. 10. GERD; on PPI 11. Diabetes mellitus: on insulin lantus 40IU qhs. on ISS. Accuchecks ACHS. DVT prophylaxis:on lovenox, as per podiatry. TO consider stopping if platelets fall to <100 Disposition: awaiting placement Code Visit Inpatient E&M: 12623 Subs Hosp L3
--- NOTE | 2018-11-02 14:56 | PN_ITS ---
Subjective: Patient seen and examined. She remains alert and has no complaints. She denies any fever, chills, cough, chest pain, SOB, diarrhea or vomiting. Review of systems is otherwise negative. labs and vitals reviewed. Total bilirubin trended up slightly to 2.4. hepatitis panel is pending. Vitals/I&O's: Vital Signs Temp Pulse Resp BP Pulse Ox 99.1 F 93 18 112/47 L 95 11/02/18 14:11 11/02/18 14:11 11/02/18 14:11 11/02/18 14:11 11/02/18 14:11 Oxygen Flow Rate (L/min) 3 Oxygen Delivery Method Room Air Weight: 189 lb 0.001 oz Body Mass Index (BMI) 32.4 Finger Stick Blood Glucose 197 Intake and Output for Last 24 Hours 10/31/18 11/01/18 11/02/18 23:59 23:59 23:59 Intake Total 1459 / 1459 2346 / 2346 2281 / 2281 Output Total 1850 / 1850 1500 / 1500 1300 / 1300 Balance -391 / -391 846 / 846 981 / 981 General: Alert, Oriented x3, Cooperative, No apparent distress HEENT: Atraumatic, PERRLA, EOMI, Normocephalic; tinge of jaundice of sclera Oral: Moist Mucosa Neck: Supple, No JVD, Negative Carotid Bruits Lungs: Clear to auscultation, Normal air movement, No rhonchi, No wheeze, No rales Cardiovascular: Regular rate, Regular Rhythm, Normal S1, Normal S2, No murmurs Abdomen: Bowel Sounds Present, Soft, Non Tender, Non-Distended, No Hepato- splenomegaly Extremities: No clubbing, No cyanosis, No edema, Capillary Refill Less than 3 Seconds Skin: No rashes, No breakdown Musculoskeletal: No Tenderness to Palpation of Joints or Extremities Lymphatic: No Cervical, Supraclavicular, or Inguinal Adenopathy Neurological: Cranial nerves II-XII grossly intact, Neuro grossly intact, - - Has mild asterixis Psych/Mental Status: Normal Affect, Appropriate, Alert and oriented to time, place, person, mood and affect Microbiology Past 72 Hours 10/29/18 18:32 Bone - Ankle Gram Stain - Final 10/29/18 18:32 Bone - Ankle Wound Culture - Final No growth aerobically. 10/29/18 18:32 Bone - Ankle Anaerobic Culture - Preliminary No growth in 48 hours. Laboratory Results 11/01/18 16:10: POC Glucose 222 H 11/01/18 22:19: POC Glucose 146 H 11/02/18 05:47: WBC 4.8, RBC 2.56 L, Hgb 8.2 L, Hct 24.7 L, MCV 96.5, MCH 32.0, MCHC 33.2, RDW 14.2, RDW Differential 49.5 H, Plt Count 114 L, MPV 10.4, Immature Gran % (Auto) 0.200, Neut % (Auto) 54.5, Lymph % (Auto) 32.9, [place] % (Auto) 10.1 H, Eos % (Auto) 2.1, Baso % (Auto) 0.2, Absolute Neuts (auto) 2.6, Absolute Lymphs (auto) 1.57, Total Counted Not Reportable 11/02/18 05:47: Sodium 137, Potassium 3.8, Chloride 104, Carbon Dioxide 25.0, Anion Gap 8, BUN 21 H, Creatinine 1.30 H, Estim Creat Clear Calc 39.74, Est GFR (MDRD) Af Amer 54 L, Est GFR (MDRD) Non-Af 44 L, BUN/Creatinine Ratio 16.2, Glucose 137 H, Calcium 7.6 L, Total Bilirubin 2.40 H, AST 50 H, ALT 27, Alkaline Phosphatase 210 H, Total Protein 5.7 L, Albumin 1.8 L, Globulin 3.9, Albumin/Globulin Ratio 0.5 L 11/02/18 05:47: Hepatitis A IgM Ab Pending, Hepatitis A Ab Total Pending, Hep Bs Antigen Pending, Hep B Core Total Ab Pending, Hep B Core IgM Ab Pending 11/02/18 05:47: Lactate Dehydrogenase 218 11/02/18 05:47: Haptoglobin Pending 11/02/18 07:45: PT 16.2 H, INR 1.3 11/02/18 08:14: POC Glucose 140 H 11/02/18 11:35: POC Glucose 242 H Current Medications Atorvastatin Calcium (Lipitor) 40 mg PO QHS [facility] Last Admin: 11/01/18 22:27 Dose: 40 mg Docusate Sodium (Colace) 100 mg PO BID PRN PRN PRN Reason: Constipation Duloxetine HCl (Cymbalta) 60 mg PO DAILY [facility] Last Admin: 11/02/18 08:24 Dose: 60 mg Enoxaparin Sodium (Lovenox) 40 mg SC DAILY@0600 [facility] Last Admin: 11/01/18 05:27 Dose: 40 mg Ergocalciferol (Vitamin D) 50,000 unit PO Sa@0800 [facility] Hydralazine HCl (Apresoline Iv) 10 mg IV Q4H PRN PRN PRN Reason: SBP > 160 Naloxone HCl 4 mg/ Dextrose 504 mls @ 0 mls/hr IV .Q0M PRN; Protocol PRN Reason: To maintain Resp. rate >10 Insulin Glargine (Lantus (Bkc)) 40 units SC QHS [facility] Last Admin: 11/01/18 23:09 Dose: 40 units Insulin Human Lispro (Humalog Kwikpen (Bkc)) 10 unit SC TIDCM [facility]; Protocol Last Admin: 11/02/18 11:37 Dose: 10 units Insulin Human Lispro (Humalog Kwikpen (Bkc)) 0 unit SC ACHS [facility]; Protocol Last Admin: 11/02/18 11:38 Dose: 3 units Lactobacillus Acidophilus (Acidophilus) 1 tablet PO BID [facility] Last Admin: 11/02/18 08:25 Dose: 1 tablet Lactulose (Chronulac, Cephulac) 10 gm PO TID [facility] Last Admin: 11/02/18 14:11 Dose: 10 gm Loperamide HCl (Imodium) 2 mg PO Q4H PRN PRN PRN Reason: Constipation Lorazepam (Ativan) 0.5 mg PO QHS [facility] Last Admin: 11/01/18 22:33 Dose: 0.5 mg Magnesium Hydroxide (Milk Of Magnesia) 30 ml PO DAILY PRN PRN PRN Reason: Constipation Melatonin (Melatonin) 3 mg PO QHS [facility] Last Admin: 11/01/18 22:27 Dose: 3 mg Multivitamins/Minerals (Multivitamin With Minerals) [facility] Last Admin: 11/02/18 08:23 Dose: 1 tablet Naloxone HCl (Narcan) 0.02 mg IV Q1M PRN PRN Reason: RR <10 and pt unresponsive Oxycodone HCl (Oxyir) 10 mg PO Q6H PRN PRN PRN Reason: SEVERE PAIN (6-08/08) Last Admin: 11/02/18 09:54 Dose: 10 mg Pantoprazole Sodium (Protonix) 20 mg PO DAILY [facility] Last Admin: 11/02/18 08:25 Dose: 20 mg Promethazine HCl (Phenergan) 12.5 mg IV Q8H PRN PRN Reason: NAUSEA/VOMITING Last Admin: 10/30/18 09:26 Dose: 12.5 mg Sodium Chloride () 5 - 15 ml IV UD PRN PRN Reason: SALINE FLUSH Last Admin: 10/30/18 11:12 Dose: 10 ml Tamsulosin HCl (Flomax) 0.4 mg PO DAILY@1730 [facility] Last Admin: 11/01/18 17:42 Dose: 0.4 mg Medical Necessity - Tobacco Use Smoking Status: Current every day smoker Tobacco Use: Cigarettes Assessment/Plan All Active Problems (Last Reviewed 06/05/18 @ 08:58 by Marta Santos) Complicated fracture of left calcaneum (Acute) Complicated fracture of left talus (Acute) Charcot's joint, left ankle and foot (Acute) Osteomyelitis of ankle or foot (Resolved) Diabetic foot infection (Resolved) Diabetic infected right heel ulcer (Resolved) 1. LLE charcot neuropathy s/p surgery * today is POD 5 * pain is well controlled * opiates on hold o/a of acute metabolic encephalopathy * PT/OT on board * pain management as per podiatry * weight bearing status as per podiatry * 2. Acute hepatic encephalopathy * has improved significantly * patient is now A) x 3; on lactulose * cause of hepatitis is still not clear; I am suspecting that based on coarse echotexture of liver per [facility], she may have an underlying cirrhosis. * hepatitis panel ordered and is pending * bilirubin has trended up slightly to 2.4 * continue lactulose and titrate for 2-3 loose stools daily * Clinisync checked; no record of patient being previously diagnosed with cirrhosis or hepatitis, though review of labs showed she had had a peak in toal bilirubin of 2.7 carin in 2017 * LDH is WNL, haptoglobin is pending, to rule out hemolytic anemia, as Hb has fallen to 8.2; * 3. AK I likely prerenal due to hypotension * Resolving. Creatinine is down to 1.30. baseline Cr is 0.8 * continue holding BP meds as BP has been well controlled whilst off meds * will continue gentle hydration with IVF. * encourage oral hydration * 4. Anemia * hb is down to 8.2 today from 8.7 yesterday * repeated blood draws likely play a role * currently asymptomatic * check iron panel. * will defer transfusion until Hb falls to <7 * 5. urine retention: * improving * on flomax * straight cath prn * * 6. Hypertension: * BP meds on hold on account of hypotension and CARISA. * BP controlled on no oral meds. We will continue holding BP meds. 7. Thrombocytopenia: platelets 114 today. continue monitoring. 8. Anxiety and depression: on Cymbalta 9. Hyperlipidemia: on statin. 10. GERD; on PPI 11. Diabetes mellitus: on insulin lantus 40IU qhs. on ISS. Accuchecks ACHS. DVT prophylaxis:on lovenox, as per podiatry. TO consider stopping if platelets fall to <100 Disposition: awaiting placement Code Visit Inpatient E&M: 18869 [facility] Hosp L3
--- NOTE | 2018-11-02 15:46 | CASEMGMT ---
Social Work Note SW placed a call to [facility] and informed Lesly that this worker is leaving for the day and if pre-cert is obtained to call [facility]. Green sheet and transportation form on pt's chart in the event pre-cert is obtained. HENS is not needed as pt is from skilled at [facility] and will be returning skilled at [facility]. 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
[2018-11-02 15:54] LABS: Ferritin 176 ng/mL (8-252); Iron 24 ug/dL (50-170); Iron Binding Capacity,Total 291 ug/dL (250-450)
[2018-11-02] MEDS: 0.9% Normal Saline 1,000 ML 125 ML IV (16:35)
[2018-11-02] MEDS: Tamsulosin HCl 0.4 MG Capsule PO (16:35)
[2018-11-02 18:36] LABS: Bedside Glucose 137 mg/dL (70-110)
[2018-11-02] MEDS: proMETHazine 25 MG/ML Syringe 12.5 MG IV (19:26)
[2018-11-02 20:50] VITALS: BP 135/60; PULSE 98; RESP 18; TEMP 36.8; O2SAT 95
[2018-11-02] MEDS: MELATONIN 3 MG TABLET PO (20:57)
[2018-11-02] MEDS: LORazepam 0.5 MG Tablet PO (20:57)
[2018-11-02] MEDS: Atorvastatin Calcium 40 MG Tablet PO (20:57)
[2018-11-02 22:15] LABS: Bedside Glucose 208 mg/dL (70-110)
[2018-11-03] MEDS: 0.9% Normal Saline 1,000 ML 125 ML IV (00:11)
[2018-11-03 00:36] LABS: Bedside Glucose 106 mg/dL (70-110)
[2018-11-03 04:00] VITALS: BP 126/54; PULSE 95; RESP 16; TEMP 36.6; O2SAT 95
[2018-11-03] MEDS: oxyCODONE 5 MG Tablet 10 MG PO ×4 (04:11→22:31)
[2018-11-03] MEDS: Insulin Lispro 100 UNIT/ML INSULN.PEN SC ×2 (07:02→21:38)
[2018-11-03] MEDS: Lactulose 20 GM/30 ML UDC 10 GM PO ×3 (07:02→21:36)
[2018-11-03] MEDS: Enoxaparin 40 MG/0.4 ML Syringe SC (07:03)
[2018-11-03 07:16] LABS: Bedside Glucose 150 mg/dL (70-110)
[2018-11-03 07:18] LABS: Absolute Lymphocyte Count 1.07 X10^3/ul (0.83-4.51); Absolute Neutrophil Count 1.9 X10^3/uL (2.0-7.7); Basophil# 0.02 X10^3/uL; Basophil% 0.6 % (0-1); Eosinophil# 0.15 X10^3/uL; Eosinophils% 4.2 % (0-5); Hematocrit 24.6 % (37-47); Hemoglobin 8.1 g/dl (12.0-15.0); Lymphocyte # 1.07 X10^3/ul (4.0); Lymphocyte % 30.2 % (19-41); Mean Corp Hgb Conc 32.9 g/gl (32-36); Mean Corpuscular Hgb 31.6 pg (27.0-32.0); Mean Corpuscular Volume 96.1 fL (81-99); Mean Platelet Vol. 9.8 fl (6.2-12.0); Monocyte# 0.39 X10^3/uL; Neutrophil # 1.91 X10^3/uL (2.7-7.7); Platelet Count 124 K/mm3 (150-450); RBC Distribution Width SD 48.9 fl (35.1-43.9); Red Blood Count 2.56 M/mm3 (4.2-5.4); White Blood Count 3.5 K/mm3 (4.4-11.0)
[2018-11-03 07:20] LABS: POSITIVE COUNT NO; POSITIVE DIFFERENTIAL NO; POSITIVE MORPHOLOGY NO
[2018-11-03 07:47] LABS: ALB/GLOB Ratio 0.4 RATIO (0.9-2.4); AST(SGOT) 52 U/L (15-37); Alanine Aminotransfer ALT/SGPT 29 U/L (13-56); Albumin, Serum 1.8 g/dL (3.2-5.0); Alkaline Phosphatase 226 U/L (45-117); Anion Gap 9 (5-15); BUN 17 mg/dL (7-18); BUN/Creat Ratio 13.2 RATIO (10-20); Calcium,Total 7.6 mg/dL (8.5-10.1); Chloride 105 mmol/L (98-107); Creatinine, Serum 1.29 mg/dL (0.55-1.02); EST Glomerular Filtration Rate 45 mL/min (>60); Est Glom Filt Rate - Afr Amer 54 mL/min (>60); Estimated Creatinine Clearance 40.05 ml/min; Glucose 146 mg/dL (74-106); Potassium 3.6 mmol/L (3.5-5.1); Protein, Total 5.8 g/dL (6.4-8.2); Sodium Level 137 mmol/L (136-145)
[2018-11-03 08:10] LABS: HEPATITIS B SURFACE AG Negative (Negative); Hepatitis A AB, Total Negative (Negative); Hepatitis A IgM Antibody Negative (Negative); Hepatitis B Core AB IgM Negative (Negative); Hepatitis B Core Ab Total Negative (Negative); Hepatitis C Ab <0.1 s/co ratio (0.0-0.9)
[2018-11-03] MEDS: Insulin Lispro 100 UNIT/ML INSULN.PEN 10 UNIT SC (08:44)
[2018-11-03] MEDS: Multivitamins,Ther W-Minerals Tablet 1 TABLET PO (08:45)
[2018-11-03] MEDS: DULoxetine Hcl 60 MG Capsule PO (08:45)
[2018-11-03] MEDS: Pantoprazole Sodium 20 MG Tablet PO (08:52)
[2018-11-03 08:54] VITALS: BP 114/62; PULSE 98; RESP 20; TEMP 37.6; O2SAT 96
--- NOTE | 2018-11-03 09:04 | PCM.PROGNOTE ---
Subjective: Patient was seen this morning for follow up, she is s/p left TTC and talonavicular arthrodesis secondary to charcot neuroarthropathy on 10/29/18. She relates pain is less to foot/ankle. She has urinated. Patient being managed for acute hepatic encephalopathy. Patient has no new complaints today, does not relate to any fever, chills, nausea or vomiting, nor any shortness of breath, chest pain or calf pain. She is waiting for insurance precertification to transfer back to [facility]. She has kept weight off of her surgical limb so far and asks if she is able to walk yet. - Physical Exam General: Alert, Oriented x3, Cooperative Extremities: No cyanosis, Capillary Refill Less than 3 Seconds - all remaining digits surgical limb, No Calf Tenderness - negative ramos bilateral, Diminished Peripheral Pulses, Edema - mild Skin: Incision - well aligned and coapted with sutures intact to posterior and anterior ankle. There is no odor, gapping, streaking noted. There is some chivo incision inflammation and erythema to the anterior incision and scant intermittent areas of dusky discoloration to both the anterior and posterior margins. Capillary fill time remains brisk to chivo incision sites to nearly 95% of each site. the skin is hairless and atrophic. no bogginess on palpation noted Musculoskeletal: No Tenderness to Palpation of Joints or Extremities, Muscle Wasting Lymphatic: - - rectus surgical ankle and foot is maintained. compartments of bilateral legs are soft to palpate Neurological: - - lack of normal epicritic sensation via light touch is noted consistent with neuropathy Psych/Mental Status: Normal Affect, Appropriate Vital Signs Temp Pulse Resp BP Pulse Ox 99.6 F H 98 20 H 114/62 96 11/03/18 08:54 11/03/18 08:54 11/03/18 08:54 11/03/18 08:54 11/03/18 08:54 Oxygen Flow Rate (L/min) 3 Oxygen Delivery Method Room Air Weight: 85.729 kg Body Mass Index (BMI) 32.4 Finger Stick Blood Glucose 197 Intake and Output for Last 24 Hours 11/01/18 11/02/18 11/03/18 23:59 23:59 23:59 Intake Total 2346 / 2346 2869 / 2869 1771 / 1771 Output Total 1500 / 1500 1550 / 1550 1325 / 1325 Balance 846 / 846 1319 / 1319 446 / 446 Microbiology Past 72 Hours 10/29/18 18:32 Gram Stain - Final Bone - Ankle Wound Culture - Final No growth aerobically. Anaerobic Culture - Preliminary No growth in 48 hours. Laboratory Tests Past 24 Hrs 11/02/18 11/02/18 11/02/18 05:47 05:47 05:47 WBC RBC Hgb Hct MCV MCH MCHC RDW RDW Differential Plt Count MPV Immature Gran % (Auto) Neut % (Auto) Lymph % (Auto) [place] % (Auto) Eos % (Auto) Baso % (Auto) Absolute Neuts (auto) Absolute Lymphs (auto) Total Counted Haptoglobin Pending Sodium Potassium Chloride Carbon Dioxide Anion Gap BUN Creatinine Estim Creat Clear Calc Est GFR (MDRD) Af Amer Est GFR (MDRD) Non-Af BUN/Creatinine Ratio Glucose Calcium Iron 24 L TIBC 291 Ferritin 176 Total Bilirubin AST ALT Alkaline Phosphatase Lactate Dehydrogenase 218 Total Protein Albumin Globulin Albumin/Globulin Ratio 11/03/18 11/03/18 06:51 06:51 WBC 3.5 L RBC 2.56 L Hgb 8.1 L Hct 24.6 L MCV 96.1 MCH 31.6 MCHC 32.9 RDW 14.0 RDW Differential 48.9 H Plt Count 124 L MPV 9.8 Immature Gran % (Auto) 0.000 Neut % (Auto) 54.0 Lymph % (Auto) 30.2 [place] % (Auto) 11.0 H Eos % (Auto) 4.2 Baso % (Auto) 0.6 Absolute Neuts (auto) 1.9 L Absolute Lymphs (auto) 1.07 Total Counted Not Reportable Haptoglobin Sodium 137 Potassium 3.6 Chloride 105 Carbon Dioxide 23.0 Anion Gap 9 BUN 17 Creatinine 1.29 H Estim Creat Clear Calc 40.05 Est GFR (MDRD) Af Amer 54 L Est GFR (MDRD) Non-Af 45 L BUN/Creatinine Ratio 13.2 Glucose 146 H Calcium 7.6 L Iron TIBC Ferritin Total Bilirubin 1.70 H AST 52 H ALT 29 Alkaline Phosphatase 226 H Lactate Dehydrogenase Total Protein 5.8 L Albumin 1.8 L Globulin 4.0 Albumin/Globulin Ratio 0.4 L POC Glucose 11/03/18 11/02/18 11/02/18 07:00 21:59 16:37 POC Glucose 150 H 208 H 137 H 11/02/18 11/02/18 14:32 11:35 POC Glucose 106 242 H Medical Necessity - Tobacco Use Smoking Status: Current every day smoker Tobacco Use: Cigarettes Assessment/Plan All Active Problems (Last Reviewed 06/05/18 @ 08:58 by Marta Santos) Complicated fracture of left calcaneum (Acute) Complicated fracture of left talus (Acute) Charcot's joint, left ankle and foot (Acute) Osteomyelitis of ankle or foot (Resolved) Diabetic foot infection (Resolved) Diabetic infected right heel ulcer (Resolved) Charcot Neuroarthropathy, left foot/ankle s/p tibiotalocalcaneal and talonavicular arthrodesis on 10/29/18 Diabetes with peripheral neuropathy Anxiety, Depression Tobacco Dependence/Abuse Vitamin D Deficiency Other medical comorbidities Charcot Neuroarthropathy, left foot/ankle s/p tibiotalocalcaneal and talonavicular arthrodesis on 10/29/18 -Leave dressing/splint clean, dry, intact. No suspicion of infection or DVT at this time. The dressing was changed and betadine gauze was applied to each incision site. The new splint was well padded and additional care was taken to offload each incision site with abdominal pads and gently berenice wrap application. No gross infection was noted. There is some small areas of dusky skin discoloration to the incision and this will be monitored closely. -No weightbearing left foot. Continue to work with PT/OT. -Must keep the left foot elevated at all times, keep heel offloaded with pillows. This was noted noted upon arrival this morning and she was educated on this important recommendation. -Pain management: Oxyir -DVT Prophylaxis: Lovenox 40mg once daily subcutaneous pending platelets -Incentive Spirometry hourly while awake Diabetes with peripheral neuropathy, Hyperlipidemia, Anxiety, Depression, increased creatinine (trending down), urinary retention, acute hepatic encephalopathy - appreciate medicine team's assistance. Her vital signs are overall stable this morning and her slightly elevated temperature of 99.6 is noted. She does not demonstrate any leukocytosis. Vitamin D Deficiency - patient on 50,000 units ergocalciferol PO twice a week. Smoking cessation encouraged to optimize healing. Continued glycemic control and nutritional supplementation is recommended to optimize healing. Discharge Planning: From foot/ankle standpoint ok to discharge back to [place]. To follow up with Dr. [facility] after discharge. Medical management and dvt prophylaxis per primary team is appreciated. SNF placement per social work is appreciated. Carolina Connelly DPM, [facility] [phone]
--- NOTE | 2018-11-03 09:40 | PCM.PN.HOSP ---
Subjective: Patient seen and examined. She feels well and has no complaints. She is eager to be discharged to her [facility]. She denies any fever, any chills, any cough or chest pain, any palpitations, shortness of breath or abdominal pain, any diarrhea vomiting. 12 point review of systems otherwise negative. Precert pending from insurance. Vitals/I&O's: Vital Signs Temp Pulse Resp BP Pulse Ox 99.6 F H 98 20 H 114/62 96 11/03/18 08:54 11/03/18 08:54 11/03/18 08:54 11/03/18 08:54 11/03/18 08:54 Oxygen Flow Rate (L/min) 3 Oxygen Delivery Method Room Air Weight: 189 lb 0.001 oz Body Mass Index (BMI) 32.4 Finger Stick Blood Glucose 197 Intake and Output for Last 24 Hours 11/01/18 11/02/18 11/03/18 23:59 23:59 23:59 Intake Total 2346 / 2346 2869 / 2869 1771 / 1771 Output Total 1500 / 1500 1550 / 1550 1325 / 1325 Balance 846 / 846 1319 / 1319 446 / 446 General: Alert, Oriented x3, Cooperative, No apparent distress HEENT: Atraumatic, PERRLA, EOMI, Normocephalic Oral: Moist Mucosa Neck: Supple, No JVD, Negative Carotid Bruits Lungs: Clear to auscultation, Normal air movement, No rhonchi, No wheeze, No rales Cardiovascular: Regular rate, Regular Rhythm, Normal S1, Normal S2, No murmurs Abdomen: Bowel Sounds Present, Soft, Non Tender, Non-Distended, No Hepato-splenomegaly Extremities: No clubbing, No cyanosis, No edema, Capillary Refill Less than 3 Seconds, - - LLE bandaged Skin: No rashes, No breakdown Musculoskeletal: No Tenderness to Palpation of Joints or Extremities Lymphatic: No Cervical, Supraclavicular, or Inguinal Adenopathy Neurological: Cranial nerves II-XII grossly intact, Neuro grossly intact Psych/Mental Status: Normal Affect, Appropriate, Alert and oriented to time, place, person, mood and affect Microbiology Past 72 Hours 10/29/18 18:32 Bone - Ankle Gram Stain - Final 10/29/18 18:32 Bone - Ankle Wound Culture - Final No growth aerobically. 10/29/18 18:32 Bone - Ankle Anaerobic Culture - Preliminary No growth in 48 hours. Laboratory Results 11/02/18 05:47: Lactate Dehydrogenase 218 11/02/18 05:47: Haptoglobin Pending 11/02/18 05:47: Iron 24 L, TIBC 291, Ferritin 176 11/02/18 11:35: POC Glucose 242 H 11/02/18 14:32: POC Glucose 106 11/02/18 16:37: POC Glucose 137 H 11/02/18 21:59: POC Glucose 208 H 11/03/18 06:51: WBC 3.5 L, RBC 2.56 L, Hgb 8.1 L, Hct 24.6 L, MCV 96.1, MCH 31.6, MCHC 32.9, RDW 14.0, RDW Differential 48.9 H, Plt Count 124 L, MPV 9.8, Immature Gran % (Auto) 0.000, Neut % (Auto) 54.0, Lymph % (Auto) 30.2, [place] % (Auto) 11.0 H, Eos % (Auto) 4.2, Baso % (Auto) 0.6, Absolute Neuts (auto) 1.9 L, Absolute Lymphs (auto) 1.07, Total Counted Not Reportable 11/03/18 06:51: Sodium 137, Potassium 3.6, Chloride 105, Carbon Dioxide 23.0, Anion Gap 9, BUN 17, Creatinine 1.29 H, Estim Creat Clear Calc 40.05, Est GFR (MDRD) Af Amer 54 L, Est GFR (MDRD) Non-Af 45 L, BUN/Creatinine Ratio 13.2, Glucose 146 H, Calcium 7.6 L, Total Bilirubin 1.70 H, AST 52 H, ALT 29, Alkaline Phosphatase 226 H, Total Protein 5.8 L, Albumin 1.8 L, Globulin 4.0, Albumin/Globulin Ratio 0.4 L 11/03/18 07:00: POC Glucose 150 H Current Medications Atorvastatin Calcium (Lipitor) 40 mg PO QHS [facility] Last Admin: 11/02/18 20:57 Dose: 40 mg Docusate Sodium (Colace) 100 mg PO BID PRN PRN PRN Reason: Constipation Duloxetine HCl (Cymbalta) 60 mg PO DAILY [facility] Last Admin: 11/03/18 08:45 Dose: 60 mg Enoxaparin Sodium (Lovenox) 40 mg SC DAILY@0600 [facility] Last Admin: 11/03/18 07:03 Dose: 40 mg Ergocalciferol (Vitamin D) 50,000 unit PO Sa@0800 [facility] Last Admin: 11/03/18 08:46 Dose: 50,000 unit Hydralazine HCl (Apresoline Iv) 10 mg IV Q4H PRN PRN PRN Reason: SBP > 160 Naloxone HCl 4 mg/ Dextrose 504 mls @ 0 mls/hr IV .Q0M PRN; Protocol PRN Reason: To maintain Resp. rate >10 Insulin Glargine (Lantus (Bkc)) 40 units SC QHS [facility] Last Admin: 11/02/18 22:01 Dose: 40 units Insulin Human Lispro (Humalog Kwikpen (Bkc)) 10 unit SC TIDCM [facility]; Protocol Last Admin: 11/03/18 08:44 Dose: 10 units Insulin Human Lispro (Humalog Kwikpen (Bkc)) 0 unit SC ACHS [facility]; Protocol Last Admin: 11/03/18 07:02 Dose: 1 units Lactobacillus Acidophilus (Acidophilus) 1 tablet PO BID [facility] Last Admin: 11/03/18 08:45 Dose: 1 tablet Lactulose (Chronulac, Cephulac) 10 gm PO TID [facility] Last Admin: 11/03/18 07:02 Dose: 10 gm Loperamide HCl (Imodium) 2 mg PO Q4H PRN PRN PRN Reason: Constipation [facility] ([facility]) [facility] Last Admin: 11/02/18 20:57 Dose: 0.5 mg Magnesium Hydroxide (Milk Of Magnesia) 30 ml PO DAILY PRN PRN PRN Reason: Constipation Melatonin (Melatonin) 3 mg PO QHS [facility] Last Admin: 11/02/18 20:57 Dose: 3 mg Multivitamins/Minerals (Multivitamin With Minerals) [facility] Last Admin: 11/03/18 08:45 Dose: 1 tablet Naloxone HCl (Narcan) 0.02 mg IV Q1M PRN PRN Reason: RR <10 and pt unresponsive Oxycodone HCl (Oxyir) 10 mg PO Q6H PRN PRN PRN Reason: SEVERE PAIN (6-10/10) Last Admin: 11/03/18 04:11 Dose: 10 mg Pantoprazole Sodium (Protonix) 20 mg PO DAILY [facility] Last Admin: 11/03/18 08:52 Dose: 20 mg Promethazine HCl (Phenergan) 12.5 mg IV Q8H PRN PRN Reason: NAUSEA/VOMITING Last Admin: 11/02/18 19:26 Dose: 12.5 mg Sodium Chloride () 5 - 15 ml IV UD PRN PRN Reason: SALINE FLUSH Last Admin: 10/30/18 11:12 Dose: 10 ml Tamsulosin HCl (Flomax) 0.4 mg PO DAILY@1730 [facility] Last Admin: 11/02/18 16:35 Dose: 0.4 mg Medical Necessity - Tobacco Use Smoking Status: Current every day smoker Tobacco Use: Cigarettes Assessment/Plan All Active Problems (Last Reviewed 06/05/18 @ 08:58 by Marta Santos) Complicated fracture of left calcaneum (Acute) Complicated fracture of left talus (Acute) Charcot's joint, left ankle and foot (Acute) Osteomyelitis of ankle or foot (Resolved) Diabetic foot infection (Resolved) Diabetic infected right heel ulcer (Resolved) 1. LLE charcot neuropathy s/p surgery today is POD 6 pain is well controlled opiates on hold o/a of acute metabolic encephalopathy PT/OT on board pain management as per podiatry weight bearing status as per podiatry 2. Acute hepatic encephalopathy has improved significantly; still on lactulose total bilirubin trended down to 1.7 hepatitis panel pending to follow up with education and training coordinator on discharge o/a of suspicion for cirrhosis 3. AK I likely prerenal due to hypotension Resolving. Creatinine is down to 1.29 encourage oral hydration 4. Anemia hb is down to 8.1 today. repeated blood draws likely play a role currently asymptomatic Iron panel showed iron level of 24 and TIBC of 291 given iron saturation of around 8%. Total ferritin is however 176 indicating that this is likely an anemia of chronic disease. will defer transfusion until Hb falls to <7 5. urine retention: improving on flomax straight cath prn 6. Hypertension: BP meds on hold on account of hypotension and CARISA. BP controlled on no oral meds. We will continue holding BP meds. 7. Thrombocytopenia: platelets 124 today. continue monitoring. 8. Anxiety and depression: on Cymbalta 9. Hyperlipidemia: on statin. 10. GERD; on PPI 11. Diabetes mellitus: on insulin lantus 40IU qhs. on ISS. Accuchecks ACHS. DVT prophylaxis:on lovenox, as per podiatry. TO consider stopping if platelets fall to <100 Disposition: awaiting placement Code Visit Inpatient E&M: 53423 [facility]s Hosp L2
--- NOTE | 2018-11-03 09:45 | PN_ITS ---
Subjective: Patient seen and examined. She feels well and has no complaints. She is eager to be discharged to her [facility]. She denies any fever, any chills, any cough or chest pain, any palpitations, shortness of breath or abdominal pain, any diarrhea vomiting. 12 point review of systems otherwise negative. Precert pending from insurance. Vitals/I&O's: Vital Signs Temp Pulse Resp BP Pulse Ox 99.6 F H 98 20 H 114/62 96 11/03/18 08:54 11/03/18 08:54 11/03/18 08:54 11/03/18 08:54 11/03/18 08:54 Oxygen Flow Rate (L/min) 3 Oxygen Delivery Method Room Air Weight: 189 lb 0.001 oz Body Mass Index (BMI) 32.4 Finger Stick Blood Glucose 197 Intake and Output for Last 24 Hours 11/01/18 11/02/18 11/03/18 23:59 23:59 23:59 Intake Total 2346 / 2346 2869 / 2869 1771 / 1771 Output Total 1500 / 1500 1550 / 1550 1325 / 1325 Balance 846 / 846 1319 / 1319 446 / 446 General: Alert, Oriented x3, Cooperative, No apparent distress HEENT: Atraumatic, PERRLA, EOMI, Normocephalic Oral: Moist Mucosa Neck: Supple, No JVD, Negative Carotid Bruits Lungs: Clear to auscultation, Normal air movement, No rhonchi, No wheeze, No rales Cardiovascular: Regular rate, Regular Rhythm, Normal S1, Normal S2, No murmurs Abdomen: Bowel Sounds Present, Soft, Non Tender, Non-Distended, No Hepato- splenomegaly Extremities: No clubbing, No cyanosis, No edema, Capillary Refill Less than 3 Seconds, - - LLE bandaged Skin: No rashes, No breakdown Musculoskeletal: No Tenderness to Palpation of Joints or Extremities Lymphatic: No Cervical, Supraclavicular, or Inguinal Adenopathy Neurological: Cranial nerves II-XII grossly intact, Neuro grossly intact Psych/Mental Status: Normal Affect, Appropriate, Alert and oriented to time, place, person, mood and affect Microbiology Past 72 Hours 10/29/18 18:32 Bone - Ankle Gram Stain - Final 10/29/18 18:32 Bone - Ankle Wound Culture - Final No growth aerobically. 10/29/18 18:32 Bone - Ankle Anaerobic Culture - Preliminary No growth in 48 hours. Laboratory Results 11/02/18 05:47: Lactate Dehydrogenase 218 11/02/18 05:47: Haptoglobin Pending 11/02/18 05:47: Iron 24 L, TIBC 291, Ferritin 176 11/02/18 11:35: POC Glucose 242 H 11/02/18 14:32: POC Glucose 106 11/02/18 16:37: POC Glucose 137 H 11/02/18 21:59: POC Glucose 208 H 11/03/18 06:51: WBC 3.5 L, RBC 2.56 L, Hgb 8.1 L, Hct 24.6 L, MCV 96.1, MCH 31.6, MCHC 32.9, RDW 14.0, RDW Differential 48.9 H, Plt Count 124 L, MPV 9.8, Immature Gran % (Auto) 0.000, Neut % (Auto) 54.0, Lymph % (Auto) 30.2, Power % (Auto) 11.0 H, Eos % (Auto) 4.2, Baso % (Auto) 0.6, Absolute Neuts (auto) 1.9 L, Absolute Lymphs (auto) 1.07, Total Counted Not Reportable 11/03/18 06:51: Sodium 137, Potassium 3.6, Chloride 105, Carbon Dioxide 23.0, Anion Gap 9, BUN 17, Creatinine 1.29 H, Estim Creat Clear Calc 40.05, Est GFR (MDRD) Af Amer 54 L, Est GFR (MDRD) Non-Af 45 L, BUN/Creatinine Ratio 13.2, Glucose 146 H, Calcium 7.6 L, Total Bilirubin 1.70 H, AST 52 H, ALT 29, Alkaline Phosphatase 226 H, Total Protein 5.8 L, Albumin 1.8 L, Globulin 4.0, Albumin/Globulin Ratio 0.4 L 11/03/18 07:00: POC Glucose 150 H Current Medications Atorvastatin Calcium (Lipitor) 40 mg PO QHS [facility] Last Admin: 11/02/18 20:57 Dose: 40 mg Docusate Sodium (Colace) 100 mg PO BID PRN PRN PRN Reason: Constipation Duloxetine HCl (Cymbalta) 60 mg PO DAILY [facility] Last Admin: 11/03/18 08:45 Dose: 60 mg Enoxaparin Sodium (Lovenox) 40 mg SC DAILY@0600 [facility] Last Admin: 11/03/18 07:03 Dose: 40 mg Ergocalciferol (Vitamin D) 50,000 unit PO Sa@0800 [facility] Last Admin: 11/03/18 08:46 Dose: 50,000 unit Hydralazine HCl (Apresoline Iv) 10 mg IV Q4H PRN PRN PRN Reason: SBP > 160 Naloxone HCl 4 mg/ Dextrose 504 mls @ 0 mls/hr IV .Q0M PRN; Protocol PRN Reason: To maintain Resp. rate >10 Insulin Glargine (Lantus (Bkc)) 40 units SC QHS [facility] Last Admin: 11/02/18 22:01 Dose: 40 units Insulin Human Lispro (Humalog Kwikpen (Bkc)) 10 unit SC TIDCM [facility]; Protocol Last Admin: 11/03/18 08:44 Dose: 10 units Insulin Human Lispro (Humalog Kwikpen (Bkc)) 0 unit SC ACHS [facility]; Protocol Last Admin: 11/03/18 07:02 Dose: 1 units Lactobacillus Acidophilus (Acidophilus) 1 tablet PO BID [facility] Last Admin: 11/03/18 08:45 Dose: 1 tablet Lactulose (Chronulac, Cephulac) 10 gm PO TID [facility] Last Admin: 11/03/18 07:02 Dose: 10 gm Loperamide HCl (Imodium) 2 mg PO Q4H PRN PRN PRN Reason: Constipation [facility] Last Admin: 11/02/18 20:57 Dose: 0.5 mg Magnesium Hydroxide (Milk Of Magnesia) 30 ml PO DAILY PRN PRN PRN Reason: Constipation Melatonin (Melatonin) 3 mg PO QHS [facility] Last Admin: 11/02/18 20:57 Dose: 3 mg Multivitamins/Minerals (Multivitamin With Minerals) [facility] Last Admin: 11/03/18 08:45 Dose: 1 tablet Naloxone HCl (Narcan) 0.02 mg IV Q1M PRN PRN Reason: RR <10 and pt unresponsive Oxycodone HCl (Oxyir) 10 mg PO Q6H PRN PRN PRN Reason: SEVERE PAIN (6-10/10) Last Admin: 11/03/18 04:11 Dose: 10 mg Pantoprazole Sodium (Protonix) 20 mg PO DAILY [facility] Last Admin: 11/03/18 08:52 Dose: 20 mg Promethazine HCl (Phenergan) 12.5 mg IV Q8H PRN PRN Reason: NAUSEA/VOMITING Last Admin: 11/02/18 19:26 Dose: 12.5 mg Sodium Chloride () 5 - 15 ml IV UD PRN PRN Reason: SALINE FLUSH Last Admin: 10/30/18 11:12 Dose: 10 ml Tamsulosin HCl (Flomax) 0.4 mg PO DAILY@1730 [facility] Last Admin: 11/02/18 16:35 Dose: 0.4 mg Medical Necessity - Tobacco Use Smoking Status: Current every day smoker Tobacco Use: Cigarettes Assessment/Plan All Active Problems (Last Reviewed 06/05/18 @ 08:58 by Marta Santos) Complicated fracture of left calcaneum (Acute) Complicated fracture of left talus (Acute) Charcot's joint, left ankle and foot (Acute) Osteomyelitis of ankle or foot (Resolved) Diabetic foot infection (Resolved) Diabetic infected right heel ulcer (Resolved) 1. LLE charcot neuropathy s/p surgery * today is POD 6 * pain is well controlled * opiates on hold o/a of acute metabolic encephalopathy * PT/OT on board * pain management as per podiatry * weight bearing status as per podiatry * 2. Acute hepatic encephalopathy * has improved significantly; still on lactulose * total bilirubin trended down to 1.7 * hepatitis panel pending * to follow up with vegetable worker on discharge o/a of suspicion for cirrhosis * 3. AK I likely prerenal due to hypotension * Resolving. Creatinine is down to 1.29 * encourage oral hydration * 4. Anemia * hb is down to 8.1 today. * repeated blood draws likely play a role * currently asymptomatic * Iron panel showed iron level of 24 and TIBC of 291 given iron saturation of around 8%. Total ferritin is however 176 indicating that this is likely an anemia of chronic disease. * will defer transfusion until Hb falls to <7 * 5. urine retention: * improving * on flomax * straight cath prn * * 6. Hypertension: * BP meds on hold on account of hypotension and CARISA. * BP controlled on no oral meds. We will continue holding BP meds. 7. Thrombocytopenia: platelets 124 today. continue monitoring. 8. Anxiety and depression: on Cymbalta 9. Hyperlipidemia: on statin. 10. GERD; on PPI 11. Diabetes mellitus: on insulin lantus 40IU qhs. on ISS. Accuchecks ACHS. DVT prophylaxis:on lovenox, as per podiatry. TO consider stopping if platelets fall to <100 Disposition: awaiting placement Code Visit Inpatient E&M: 05986 Subs Hosp L2
[2018-11-03] MEDS: proMETHazine 25 MG/ML Syringe 12.5 MG IV (10:05)
[2018-11-03] MEDS: 0.9% NaCl Peripheral Flush Adult/Peds IV (10:09)
[2018-11-03 11:40] LABS: Bedside Glucose 114 mg/dL (70-110)
[2018-11-03 12:27] LABS: Hep B Surface Antibodies Non Reactive (.)
[2018-11-03 12:28] LABS: Haptoglobin 191 mg/dL (34-200)
[2018-11-03 15:40] VITALS: BP 111/80; PULSE 88; RESP 18; TEMP 37.6; O2SAT 97
[2018-11-03 15:56] LABS: Bedside Glucose 123 mg/dL (70-110)
[2018-11-03] MEDS: Tamsulosin HCl 0.4 MG Capsule PO (16:15)
[2018-11-03] MEDS: MELATONIN 3 MG TABLET PO (21:35)
[2018-11-03] MEDS: Atorvastatin Calcium 40 MG Tablet PO (21:35)
[2018-11-03] MEDS: LORazepam 0.5 MG Tablet PO (21:35)
[2018-11-03 21:45] VITALS: BP 155/75; PULSE 98; RESP 16; TEMP 37.2; O2SAT 99
[2018-11-03 21:51] LABS: Bedside Glucose 210 mg/dL (70-110)
[2018-11-04 03:13] VITALS: BP 123/60; PULSE 85; RESP 16; TEMP 37.1; O2SAT 100
[2018-11-04] MEDS: Enoxaparin 40 MG/0.4 ML Syringe SC (06:36)
[2018-11-04] MEDS: Lactulose 20 GM/30 ML UDC 10 GM PO (06:36)
[2018-11-04] MEDS: oxyCODONE 5 MG Tablet 10 MG PO ×3 (06:36→21:08)
[2018-11-04 06:39] LABS: Absolute Lymphocyte Count 1.48 X10^3/ul (0.83-4.51); Absolute Neutrophil Count 1.8 X10^3/uL (2.0-7.7); Basophil# 0.02 X10^3/uL; Basophil% 0.5 % (0-1); Eosinophils% 4.9 % (0-5); Hematocrit 25.5 % (37-47); Hemoglobin 8.4 g/dl (12.0-15.0); Lymphocyte # 1.48 X10^3/ul (4.0); Lymphocyte % 36.4 % (19-41); Mean Corp Hgb Conc 32.9 g/gl (32-36); Mean Corpuscular Hgb 31.6 pg (27.0-32.0); Mean Corpuscular Volume 95.9 fL (81-99); Mean Platelet Vol. 9.7 fl (6.2-12.0); Monocyte# 0.58 X10^3/uL; Monocyte% 14.3 % (0-10); Neutrophil # 1.78 X10^3/uL (2.7-7.7); Neutrophil % 43.7 % (47-70); Platelet Count 141 K/mm3 (150-450); RBC Distribution Width CV 13.7 % (11.6-14.6); RBC Distribution Width SD 48.2 fl (35.1-43.9); Red Blood Count 2.66 M/mm3 (4.2-5.4); White Blood Count 4.1 K/mm3 (4.4-11.0)
[2018-11-04 06:42] LABS: POSITIVE COUNT NO; POSITIVE DIFFERENTIAL NO; POSITIVE MORPHOLOGY NO
[2018-11-04 06:46] LABS: Bedside Glucose 72 mg/dL (70-110)
[2018-11-04 07:12] LABS: AST(SGOT) 55 U/L (15-37); Alanine Aminotransfer ALT/SGPT 30 U/L (13-56); Albumin, Serum 1.9 g/dL (3.2-5.0); Alkaline Phosphatase 248 U/L (45-117); Bilirubin, Direct 1.21 mg/dL (0.00-0.30); Globulin 4.3 g/dL (2.2-4.2); Protein, Total 6.2 g/dL (6.4-8.2)
[2018-11-04 07:57] VITALS: BP 120/59; PULSE 82; RESP 20; TEMP 36.8; O2SAT 100
[2018-11-04] MEDS: Multivitamins,Ther W-Minerals Tablet 1 TABLET PO (08:03)
[2018-11-04] MEDS: DULoxetine Hcl 60 MG Capsule PO (08:03)
[2018-11-04] MEDS: Pantoprazole Sodium 20 MG Tablet PO (08:08)
[2018-11-04] MEDS: Glucerna Shake 120 ML LIQUID PO (08:10)
[2018-11-04 08:16] LABS: Bedside Glucose 102 mg/dL (70-110)
--- NOTE | 2018-11-04 09:49 | PCM.PN.HOSP ---
Subjective: Patient seen and examined. She has no complaints and had an uneventful night. She denies any fever, chills, palpitations, cough or abdominal pain, diarrhea vomiting. Review of systems otherwise negative. Labs and vitals reviewed. He is awaiting placement. Vitals/I&O's: Vital Signs Temp Pulse Resp BP Pulse Ox 98.2 F 82 20 H 120/59 L 100 11/04/18 07:57 11/04/18 07:57 11/04/18 07:57 11/04/18 07:57 11/04/18 07:57 Oxygen Flow Rate (L/min) 3 Oxygen Delivery Method Room Air Weight: 189 lb 0.001 oz Body Mass Index (BMI) 32.4 Finger Stick Blood Glucose 197 Intake and Output for Last 24 Hours 11/02/18 11/03/18 11/04/18 23:59 23:59 23:59 Intake Total 2869 / 2869 2711 / 2711 850 / 850 Output Total 1550 / 1550 2125 / 2125 1225 / 1225 Balance 1319 / 1319 586 / 586 -375 / -375 General: Alert, Oriented x3, Cooperative, No apparent distress HEENT: Atraumatic, PERRLA, EOMI, Normocephalic Oral: Moist Mucosa Neck: Supple, No JVD, Negative Carotid Bruits Lungs: Clear to auscultation, Normal air movement, No rhonchi, No wheeze, No rales Cardiovascular: Regular rate, Regular Rhythm, Normal S1, Normal S2, No murmurs Abdomen: Bowel Sounds Present, Soft, Non Tender, Non-Distended, No Hepato-splenomegaly Extremities: No clubbing, No cyanosis, No edema, Capillary Refill Less than 3 Seconds, - - LLE bandaged Skin: No rashes, No breakdown Musculoskeletal: No Tenderness to Palpation of Joints or Extremities Lymphatic: No Cervical, Supraclavicular, or Inguinal Adenopathy Neurological: Cranial nerves II-XII grossly intact, Neuro grossly intact Psych/Mental Status: Normal Affect, Appropriate, Alert and oriented to time, place, person, mood and affect Microbiology Past 72 Hours 10/29/18 18:32 Bone - Ankle Gram Stain - Final 10/29/18 18:32 Bone - Ankle Wound Culture - Final No growth aerobically. 10/29/18 18:32 Bone - Ankle Anaerobic Culture - Final No anaerobic bacteria isolated. Laboratory Results 11/02/18 05:47: Hepatitis A IgM Ab Negative, Hepatitis A Ab Total Negative, Hep Bs Antigen Negative, Hep B Core Total Ab Negative, Hep B Core IgM Ab Negative, Hepatitis C Ab Confirm <0.1, Hepatitis C Comment Comment 11/02/18 05:47: Haptoglobin 191 11/03/18 11:33: POC Glucose 114 H 11/03/18 15:49: POC Glucose 123 H 11/03/18 21:35: POC Glucose 210 H 11/04/18 06:20: Total Bilirubin 1.50 H, Direct Bilirubin 1.21 H, AST 55 H, ALT 30, Alkaline Phosphatase 248 H, Total Protein 6.2 L, Albumin 1.9 L, Globulin 4.3 H 11/04/18 06:20: WBC 4.1 L, RBC 2.66 L, Hgb 8.4 L, Hct 25.5 L, MCV 95.9, MCH 31.6, MCHC 32.9, RDW 13.7, RDW Differential 48.2 H, Plt Count 141 L, MPV 9.7, Immature Gran % (Auto) 0.200, Neut % (Auto) 43.7 L, Lymph % (Auto) 36.4, [place] % (Auto) 14.3 H, Eos % (Auto) 4.9, Baso % (Auto) 0.5, Absolute Neuts (auto) 1.8 L, Absolute Lymphs (auto) 1.48, Total Counted Not Reportable 11/04/18 06:28: POC Glucose 72 11/04/18 07:56: POC Glucose 102 Current Medications Atorvastatin Calcium (Lipitor) 40 mg PO QHS [facility] Last Admin: 11/03/18 21:35 Dose: 40 mg Docusate Sodium (Colace) 100 mg PO BID PRN PRN PRN Reason: Constipation Duloxetine HCl (Cymbalta) 60 mg PO DAILY [facility] Last Admin: 11/04/18 08:03 Dose: 60 mg Enoxaparin Sodium (Lovenox) 40 mg SC DAILY@0600 [facility] Last Admin: 11/04/18 06:36 Dose: 40 mg Ergocalciferol (Vitamin D) 50,000 unit PO Sa@0800 [facility] Last Admin: 11/03/18 08:46 Dose: 50,000 unit Hydralazine HCl (Apresoline Iv) 10 mg IV Q4H PRN PRN PRN Reason: SBP > 160 Naloxone HCl 4 mg/ Dextrose 504 mls @ 0 mls/hr IV .Q0M PRN; Protocol PRN Reason: To maintain Resp. rate >10 Insulin Glargine (Lantus (Bkc)) 40 units SC QHS [facility] Last Admin: 11/03/18 21:37 Dose: 40 units Insulin Human Lispro (Humalog Kwikpen (Bkc)) 10 unit SC TIDCM [facility]; Protocol Last Admin: 11/04/18 08:02 Dose: Not Given Insulin Human Lispro (Humalog Kwikpen (Bkc)) 0 unit SC ACHS [facility]; Protocol Last Admin: 11/04/18 08:01 Dose: Not Given Lactobacillus Acidophilus (Acidophilus) 1 tablet PO BID [facility] Last Admin: 11/04/18 08:03 Dose: 1 tablet Lactulose (Chronulac, Cephulac) 10 gm PO TID [facility] Last Admin: 11/04/18 06:36 Dose: 10 gm Loperamide HCl (Imodium) 2 mg PO Q4H PRN PRN PRN Reason: Constipation Lorazepam (Ativan) 0.5 mg PO QHS [facility] Last Admin: 11/03/18 21:35 Dose: 0.5 mg Magnesium Hydroxide (Milk Of Magnesia) 30 ml PO DAILY PRN PRN PRN Reason: Constipation Melatonin (Melatonin) 3 mg PO QHS [facility] Last Admin: 11/03/18 21:35 Dose: 3 mg Multivitamins/Minerals ([facility]erals) [facility] Last Admin: 11/04/18 08:03 Dose: 1 tablet Naloxone HCl (Narcan) 0.02 mg IV Q1M PRN PRN Reason: RR <10 and pt unresponsive Nutritional Formula (Lactose Free) (Glucerna Shake) 120 ml PO 4X/DAY [facility] Last Admin: 11/04/18 08:10 Dose: 120 ml Oxycodone HCl (Oxyir) 10 mg PO Q6H PRN PRN PRN Reason: SEVERE PAIN (6-10/10) Last Admin: 11/04/18 06:36 Dose: 10 mg Pantoprazole Sodium (Protonix) 20 mg PO DAILY [facility] Last Admin: 11/04/18 08:08 Dose: 20 mg Promethazine HCl (Phenergan) 12.5 mg IV Q8H PRN PRN Reason: NAUSEA/VOMITING Last Admin: 11/03/18 10:05 Dose: 12.5 mg Sodium Chloride () 5 - 15 ml IV UD PRN PRN Reason: SALINE FLUSH Last Admin: 11/03/18 10:09 Dose: 10 ml Tamsulosin HCl (Flomax) 0.4 mg PO DAILY@1730 [facility] Last Admin: 11/03/18 16:15 Dose: 0.4 mg Medical Necessity - Tobacco Use Smoking Status: Current every day smoker Tobacco Use: Cigarettes Assessment/Plan All Active Problems (Last Reviewed 06/05/18 @ 08:58 by Marta Santos) Complicated fracture of left calcaneum (Acute) Complicated fracture of left talus (Acute) Charcot's joint, left ankle and foot (Acute) Osteomyelitis of ankle or foot (Resolved) Diabetic foot infection (Resolved) Diabetic infected right heel ulcer (Resolved) 1. LLE charcot neuropathy s/p surgery today is POD 7 pain is well controlled opiates on hold o/a of acute metabolic encephalopathy PT/OT on board pain management as per podiatry weight bearing status as per podiatry 2. Acute hepatic encephalopathy has improved significantly; still on lactulose total bilirubin trended down to 1.5 hepatitis panel was negative to follow up with scrub technician on discharge o/a of suspicion for cirrhosis, possibly CAMPOS 3. AK I likely prerenal due to hypotension Resolved. encourage oral hydration 4. Anemia hb is down to 8.4 today. repeated blood draws likely play a role currently asymptomatic Iron panel showed anemia of chronic disease pattern. will defer transfusion until Hb falls to <7 5. urine retention improving on flomax straight cath prn 6. Hypertension: BP meds on hold on account of hypotension and CARISA. BP controlled on no oral meds. We will continue holding BP meds. 7. Thrombocytopenia: platelets 141 today. continue monitoring. 8. Anxiety and depression: on Cymbalta 9. Hyperlipidemia: on statin. 10. GERD; on PPI 11. Diabetes mellitus: on insulin lantus 40IU qhs. on ISS. Accuchecks ACHS. DVT prophylaxis:on lovenox, as per podiatry. TO consider stopping if platelets fall to <100 Disposition: awaiting placement Code Visit Inpatient E&M: 08074 Subs Hosp L2
--- NOTE | 2018-11-04 09:53 | PN_ITS ---
Subjective: Patient seen and examined. She has no complaints and had an uneventful night. She denies any fever, chills, palpitations, cough or abdominal pain, diarrhea vomiting. Review of systems otherwise negative. Labs and vitals reviewed. He is awaiting placement. Vitals/I&O's: Vital Signs Temp Pulse Resp BP Pulse Ox 98.2 F 82 20 H 120/59 L 100 11/04/18 07:57 11/04/18 07:57 11/04/18 07:57 11/04/18 07:57 11/04/18 07:57 Oxygen Flow Rate (L/min) 3 Oxygen Delivery Method Room Air Weight: 189 lb 0.001 oz Body Mass Index (BMI) 32.4 Finger Stick Blood Glucose 197 Intake and Output for Last 24 Hours 11/02/18 11/03/18 11/04/18 23:59 23:59 23:59 Intake Total 2869 / 2869 2711 / 2711 850 / 850 Output Total 1550 / 1550 2125 / 2125 1225 / 1225 Balance 1319 / 1319 586 / 586 -375 / -375 General: Alert, Oriented x3, Cooperative, No apparent distress HEENT: Atraumatic, PERRLA, EOMI, Normocephalic Oral: Moist Mucosa Neck: Supple, No JVD, Negative Carotid Bruits Lungs: Clear to auscultation, Normal air movement, No rhonchi, No wheeze, No rales Cardiovascular: Regular rate, Regular Rhythm, Normal S1, Normal S2, No murmurs Abdomen: Bowel Sounds Present, Soft, Non Tender, Non-Distended, No Hepato- splenomegaly Extremities: No clubbing, No cyanosis, No edema, Capillary Refill Less than 3 Seconds, - - LLE bandaged Skin: No rashes, No breakdown Musculoskeletal: No Tenderness to Palpation of Joints or Extremities Lymphatic: No Cervical, Supraclavicular, or Inguinal Adenopathy Neurological: Cranial nerves II-XII grossly intact, Neuro grossly intact Psych/Mental Status: Normal Affect, Appropriate, Alert and oriented to time, place, person, mood and affect Microbiology Past 72 Hours 10/29/18 18:32 Bone - Ankle Gram Stain - Final 10/29/18 18:32 Bone - Ankle Wound Culture - Final No growth aerobically. 10/29/18 18:32 Bone - Ankle Anaerobic Culture - Final No anaerobic bacteria isolated. Laboratory Results 11/02/18 05:47: Hepatitis A IgM Ab Negative, Hepatitis A Ab Total Negative, Hep Bs Antigen Negative, Hep B Core Total Ab Negative, Hep B Core IgM Ab Negative, Hepatitis C Ab Confirm <0.1, Hepatitis C Comment Comment 11/02/18 05:47: Haptoglobin 191 11/03/18 11:33: POC Glucose 114 H 11/03/18 15:49: POC Glucose 123 H 11/03/18 21:35: POC Glucose 210 H 11/04/18 06:20: Total Bilirubin 1.50 H, Direct Bilirubin 1.21 H, AST 55 H, ALT 30, Alkaline Phosphatase 248 H, Total Protein 6.2 L, Albumin 1.9 L, Globulin 4.3 H 11/04/18 06:20: WBC 4.1 L, RBC 2.66 L, Hgb 8.4 L, Hct 25.5 L, MCV 95.9, MCH 31.6, MCHC 32.9, RDW 13.7, RDW Differential 48.2 H, Plt Count 141 L, MPV 9.7, Immature Gran % (Auto) 0.200, Neut % (Auto) 43.7 L, Lymph % (Auto) 36.4, Wallace % (Auto) 14.3 H, Eos % (Auto) 4.9, Baso % (Auto) 0.5, Absolute Neuts (auto) 1.8 L, Absolute Lymphs (auto) 1.48, Total Counted Not Reportable 11/04/18 06:28: POC Glucose 72 11/04/18 07:56: POC Glucose 102 Current Medications Atorvastatin Calcium (Lipitor) 40 mg PO QHS [facility] Last Admin: 11/03/18 21:35 Dose: 40 mg Docusate Sodium (Colace) 100 mg PO BID PRN PRN PRN Reason: Constipation Duloxetine HCl (Cymbalta) 60 mg PO DAILY [facility] Last Admin: 11/04/18 08:03 Dose: 60 mg Enoxaparin Sodium (Lovenox) 40 mg SC DAILY@0600 [facility] Last Admin: 11/04/18 06:36 Dose: 40 mg Ergocalciferol (Vitamin D) 50,000 unit PO Sa@0800 [facility] Last Admin: 11/03/18 08:46 Dose: 50,000 unit Hydralazine HCl (Apresoline Iv) 10 mg IV Q4H PRN PRN PRN Reason: SBP > 160 Naloxone HCl 4 mg/ Dextrose 504 mls @ 0 mls/hr IV .Q0M PRN; Protocol PRN Reason: To maintain Resp. rate >10 Insulin Glargine (Lantus (Bkc)) 40 units SC QHS [facility] Last Admin: 11/03/18 21:37 Dose: 40 units Insulin Human Lispro (Humalog Kwikpen (Bkc)) 10 unit SC TIDCM [facility]; Protocol Last Admin: 11/04/18 08:02 Dose: Not Given Insulin Human Lispro (Humalog Kwikpen (Bkc)) 0 unit SC ACHS [facility]; Protocol Last Admin: 11/04/18 08:01 Dose: Not Given Lactobacillus Acidophilus (Acidophilus) 1 tablet PO BID [facility] Last Admin: 11/04/18 08:03 Dose: 1 tablet Lactulose (Chronulac, Cephulac) 10 gm PO TID [facility] Last Admin: 11/04/18 06:36 Dose: 10 gm Loperamide HCl (Imodium) 2 mg PO Q4H PRN PRN PRN Reason: Constipation Lorazepam (Ativan) 0.5 mg PO QHS [facility] Last Admin: 11/03/18 21:35 Dose: 0.5 mg Magnesium Hydroxide (Milk Of Magnesia) 30 ml PO DAILY PRN PRN PRN Reason: Constipation Melatonin (Melatonin) 3 mg PO QHS [facility] Last Admin: 11/03/18 21:35 Dose: 3 mg Multivitamins/Minerals (Multivitamin With Minerals) [facility] Last Admin: 11/04/18 08:03 Dose: 1 tablet Naloxone HCl (Narcan) 0.02 mg IV Q1M PRN PRN Reason: RR <10 and pt unresponsive Nutritional Formula (Lactose Free) (Glucerna Shake) 120 ml PO 4X/DAY [facility] Last Admin: 11/04/18 08:10 Dose: 120 ml Oxycodone HCl (Oxyir) 10 mg PO Q6H PRN PRN PRN Reason: SEVERE PAIN (6-10/10) Last Admin: 11/04/18 06:36 Dose: 10 mg Pantoprazole Sodium (Protonix) 20 mg PO DAILY [facility] Last Admin: 11/04/18 08:08 Dose: 20 mg Promethazine HCl (Phenergan) 12.5 mg IV Q8H PRN PRN Reason: NAUSEA/VOMITING Last Admin: 11/03/18 10:05 Dose: 12.5 mg Sodium Chloride () 5 - 15 ml IV UD PRN PRN Reason: SALINE FLUSH Last Admin: 11/03/18 10:09 Dose: 10 ml Tamsulosin HCl (Flomax) 0.4 mg PO DAILY@1730 [facility] Last Admin: 11/03/18 16:15 Dose: 0.4 mg Medical Necessity - Tobacco Use Smoking Status: Current every day smoker Tobacco Use: Cigarettes Assessment/Plan All Active Problems (Last Reviewed 06/05/18 @ 08:58 by Marta Santos) Complicated fracture of left calcaneum (Acute) Complicated fracture of left talus (Acute) Charcot's joint, left ankle and foot (Acute) Osteomyelitis of ankle or foot (Resolved) Diabetic foot infection (Resolved) Diabetic infected right heel ulcer (Resolved) 1. LLE charcot neuropathy s/p surgery * today is POD 7 * pain is well controlled * opiates on hold o/a of acute metabolic encephalopathy * PT/OT on board * pain management as per podiatry * weight bearing status as per podiatry * 2. Acute hepatic encephalopathy * has improved significantly; still on lactulose * total bilirubin trended down to 1.5 * hepatitis panel was negative * to follow up with electronic equipment installer on discharge o/a of suspicion for cirrhosis, possibly CAMPOS * 3. [place] I likely prerenal due to hypotension * Resolved. * encourage oral hydration * 4. Anemia * hb is down to 8.4 today. * repeated blood draws likely play a role * currently asymptomatic * Iron panel showed anemia of chronic disease pattern. * will defer transfusion until Hb falls to <7 * 5. urine retention * improving * on flomax * straight cath prn * * 6. Hypertension: * BP meds on hold on account of hypotension and CARISA. * BP controlled on no oral meds. We will continue holding BP meds. 7. Thrombocytopenia: platelets 141 today. continue monitoring. 8. Anxiety and depression: on Cymbalta 9. Hyperlipidemia: on statin. 10. GERD; on PPI 11. Diabetes mellitus: on insulin lantus 40IU qhs. on ISS. Accuchecks ACHS. DVT prophylaxis:on lovenox, as per podiatry. TO consider stopping if platelets fall to <100 Disposition: awaiting placement Code Visit Inpatient E&M: 95569 Subs Hosp L2
[2018-11-04 12:05] LABS: Bedside Glucose 143 mg/dL (70-110)
--- NOTE | 2018-11-04 14:14 | NURSING ---
Pt refusing Glucerna Shake and Lactulose Despite Education. Very flat and irritable. c/o Nausea and asked for phenergan but SL when flushed prior to Phenergan was painful and leaking. Pt does not want To have new stick so she is requesting po. Order obtained for po.
[2018-11-04 14:23] VITALS: BP 150/61; PULSE 87; RESP 18; TEMP 36.4; O2SAT 98
[2018-11-04] MEDS: proMETHazine 25 MG Tablet 12.5 MG PO (16:18)
[2018-11-04] MEDS: Tamsulosin HCl 0.4 MG Capsule PO (16:21)
[2018-11-04] MEDS: Insulin Lispro 100 UNIT/ML INSULN.PEN 10 UNIT SC (16:22)
[2018-11-04] MEDS: Insulin Lispro 100 UNIT/ML INSULN.PEN SC ×2 (16:22→21:14)
[2018-11-04 16:26] LABS: Bedside Glucose 193 mg/dL (70-110)
[2018-11-04 20:09] VITALS: BP 132/46; PULSE 84; RESP 16; TEMP 37; O2SAT 100
[2018-11-04] MEDS: LORazepam 0.5 MG Tablet PO (21:07)
[2018-11-04] MEDS: MELATONIN 3 MG TABLET PO (21:07)
[2018-11-04] MEDS: Atorvastatin Calcium 40 MG Tablet PO (21:08)
[2018-11-04 21:21] LABS: Bedside Glucose 166 mg/dL (70-110)
--- NOTE | 2018-11-04 21:22 | PCM.PROGNOTE ---
Subjective: This 58 year old female was seen s/p left TTC and talonavicular arthrodesis secondary to charcot neuroarthropathy on 10/29/18. She relates pain is controlled to left surgical limb; rated 7/10. She no longer has urinary retention. She denies fever, chills, nausea, vomiting, shortness of breath, chest pain, or calf pain. She is still waiting for insurance precertification to transfer back to [facility]. - Physical Exam General: Alert, Oriented x3, Cooperative Extremities: Capillary Refill Less than 3 Seconds - to remaining digits of surgical limb, No Calf Tenderness Skin: - - splint and dressing intact; no odor noted Musculoskeletal: Muscle Wasting, - - rectus surgical limb position. AROM digits noted Neurological: - - lack of sensation to toes via light touch Psych/Mental Status: Normal Affect, Appropriate Vital Signs Temp Pulse Resp BP Pulse Ox 98.6 F 84 16 132/46 H 100 11/04/18 20:09 11/04/18 20:09 11/04/18 20:09 11/04/18 20:09 11/04/18 20:09 Oxygen Flow Rate (L/min) 3 Oxygen Delivery Method Room Air Weight: 85.729 kg Body Mass Index (BMI) 32.4 Finger Stick Blood Glucose 197 Intake and Output for Last 24 Hours 11/02/18 11/03/18 11/04/18 23:59 23:59 23:59 Intake Total 2869 / 2869 2711 / 2711 1090 / 1090 Output Total 1550 / 1550 2125 / 2125 1875 / 1875 Balance 1319 / 1319 586 / 586 -785 / -785 Microbiology Past 72 Hours 10/29/18 18:32 Gram Stain - Final Bone - Ankle Wound Culture - Final No growth aerobically. Anaerobic Culture - Final No anaerobic bacteria isolated. Laboratory Tests Past 24 Hrs 11/04/18 11/04/18 06:20 06:20 WBC 4.1 L RBC 2.66 L Hgb 8.4 L Hct 25.5 L MCV 95.9 MCH 31.6 MCHC 32.9 RDW 13.7 RDW Differential 48.2 H Plt Count 141 L MPV 9.7 Immature Gran % (Auto) 0.200 Neut % (Auto) 43.7 L Lymph % (Auto) 36.4 [place] % (Auto) 14.3 H Eos % (Auto) 4.9 Baso % (Auto) 0.5 Absolute Neuts (auto) 1.8 L Absolute Lymphs (auto) 1.48 Total Counted Not Reportable Total Bilirubin 1.50 H Direct Bilirubin 1.21 H AST 55 H ALT 30 Alkaline Phosphatase 248 H Total Protein 6.2 L Albumin 1.9 L Globulin 4.3 H POC Glucose 11/04/18 11/04/18 11/04/18 21:11 16:20 11:48 POC Glucose 166 H 193 H 143 H 11/04/18 11/04/18 11/03/18 07:56 06:28 21:35 POC Glucose 102 72 210 H Medical Necessity - Tobacco Use Smoking Status: Current every day smoker Tobacco Use: Cigarettes Assessment/Plan All Active Problems (Last Reviewed 06/05/18 @ 08:58 by Marta Santos) Complicated fracture of left calcaneum (Acute) Complicated fracture of left talus (Acute) Charcot's joint, left ankle and foot (Acute) Osteomyelitis of ankle or foot (Resolved) Diabetic foot infection (Resolved) Diabetic infected right heel ulcer (Resolved) Charcot Neuroarthropathy, left foot/ankle s/p tibiotalocalcaneal and talonavicular arthrodesis on 10/29/18 Diabetes with peripheral neuropathy Anxiety, Depression Tobacco Dependence/Abuse Vitamin D Deficiency Other medical comorbidities Charcot Neuroarthropathy, left foot/ankle s/p tibiotalocalcaneal and talonavicular arthrodesis on 10/29/18 -Leave dressing/splint clean, dry, intact. No suspicion of infection or DVT at this time. -No weightbearing left foot. Continue to work with PT/OT. Medical management per primary team is appreciated. From foot/ankle standpoint ok to discharge back to [place]; precert pending. Carolina Connelly DPM, [facility] [phone]
--- NOTE | 2018-11-04 21:28 | PN_ITS ---
Subjective: This 58 year old female was seen s/p left TTC and talonavicular arthrodesis secondary to charcot neuroarthropathy on 10/29/18. She relates pain is c ontrolled to left surgical limb; rated 7/10. She no longer has urinary retention. She denies fever, chills, nausea, vomiting, shortness of breath, chest pain, or calf pain. She is still waiting for insurance precertification to transfer back to [facility]. - Physical Exam General: Alert, Oriented x3, Cooperative Extremities: Capillary Refill Less than 3 Seconds - to remaining digits of surgical limb, No Calf Tenderness Skin: - - splint and dressing intact; no odor noted Musculoskeletal: Muscle Wasting, - - rectus surgical limb position. AROM digits noted Neurological: - - lack of sensation to toes via light touch Psych/Mental Status: Normal Affect, Appropriate Vital Signs Temp Pulse Resp BP Pulse Ox 98.6 F 84 16 132/46 H 100 11/04/18 20:09 11/04/18 20:09 11/04/18 20:09 11/04/18 20:09 11/04/18 20:09 Oxygen Flow Rate (L/min) 3 Oxygen Delivery Method Room Air Weight: 85.729 kg Body Mass Index (BMI) 32.4 Finger Stick Blood Glucose 197 Intake and Output for Last 24 Hours 11/02/18 11/03/18 11/04/18 23:59 23:59 23:59 Intake Total 2869 / 2869 2711 / 2711 1090 / 1090 Output Total 1550 / 1550 2125 / 2125 1875 / 1875 Balance 1319 / 1319 586 / 586 -785 / -785 Microbiology Past 72 Hours 10/29/18 18:32 Gram Stain - Final Bone - Ankle Wound Culture - Final No growth aerobically. Anaerobic Culture - Final No anaerobic bacteria isolated. Laboratory Tests Past 24 Hrs 11/04/18 11/04/18 06:20 06:20 WBC 4.1 L RBC 2.66 L Hgb 8.4 L Hct 25.5 L MCV 95.9 MCH 31.6 MCHC 32.9 RDW 13.7 RDW Differential 48.2 H Plt Count 141 L MPV 9.7 Immature Gran % (Auto) 0.200 Neut % (Auto) 43.7 L Lymph % (Auto) 36.4 [place] % (Auto) 14.3 H Eos % (Auto) 4.9 Baso % (Auto) 0.5 Absolute Neuts (auto) 1.8 L Absolute Lymphs (auto) 1.48 Total Counted Not Reportable Total Bilirubin 1.50 H Direct Bilirubin 1.21 H AST 55 H ALT 30 Alkaline Phosphatase 248 H Total Protein 6.2 L Albumin 1.9 L Globulin 4.3 H POC Glucose 11/04/18 11/04/18 11/04/18 21:11 16:20 11:48 POC Glucose 166 H 193 H 143 H 11/04/18 11/04/18 11/03/18 07:56 06:28 21:35 POC Glucose 102 72 210 H Medical Necessity - Tobacco Use Smoking Status: Current every day smoker Tobacco Use: Cigarettes Assessment/Plan All Active Problems (Last Reviewed 06/05/18 @ 08:58 by Marta Santos) Complicated fracture of left calcaneum (Acute) Complicated fracture of left talus (Acute) Charcot's joint, left ankle and foot (Acute) Osteomyelitis of ankle or foot (Resolved) Diabetic foot infection (Resolved) Diabetic infected right heel ulcer (Resolved) Charcot Neuroarthropathy, left foot/ankle s/p tibiotalocalcaneal and talonavicular arthrodesis on 10/29/18 Diabetes with peripheral neuropathy Anxiety, Depression Tobacco Dependence/Abuse Vitamin D Deficiency Other medical comorbidities Charcot Neuroarthropathy, left foot/ankle s/p tibiotalocalcaneal and talonavicular arthrodesis on 10/29/18 -Leave dressing/splint clean, dry, intact. No suspicion of infection or DVT at this time. -No weightbearing left foot. Continue to work with PT/OT. Medical management per primary team is appreciated. From foot/ankle standpoint ok to discharge back to [place]; precert pending. Carolina Connelly DPM, [facility] [phone]
[2018-11-05 02:49] VITALS: BP 104/46; PULSE 76; RESP 14; TEMP 37; O2SAT 97
[2018-11-05] MEDS: Enoxaparin 40 MG/0.4 ML Syringe SC (06:57)
[2018-11-05 07:10] LABS: Bedside Glucose 96 mg/dL (70-110)
[2018-11-05 08:48] VITALS: BP 101/52; PULSE 87; RESP 18; TEMP 36.9; O2SAT 99
[2018-11-05] MEDS: Multivitamins,Ther W-Minerals Tablet 1 TABLET PO (08:52)
[2018-11-05] MEDS: DULoxetine Hcl 60 MG Capsule PO (08:52)
[2018-11-05] MEDS: Pantoprazole Sodium 20 MG Tablet PO (08:55)
[2018-11-05] MEDS: oxyCODONE 5 MG Tablet 10 MG PO (08:55)
[2018-11-05 08:56] LABS: Bedside Glucose 160 mg/dL (70-110)
[2018-11-05] MEDS: Insulin Lispro 100 UNIT/ML INSULN.PEN 10 UNIT SC ×2 (08:56→12:47)
--- NOTE | 2018-11-05 09:27 | CASEMGMT ---
Social Work Note SW received call from [facility] stating pre-cert has been obtained and pt is able to discharge today. Plan: [facility] today Roberta Rojas TELEPHONE INSTALLER, CANDY DIPPER
--- NOTE | 2018-11-05 11:15 | PCM.PN.HOSP ---
Subjective: Patient seen and examined. She had no complaints and had an uneventful night. 12 point review of systems otherwise negative. Labs and vitals reviewed. She is to be discharged to the skilled nursing today. Vitals/I&O's: Vital Signs Temp Pulse Resp BP Pulse Ox 98.5 F 87 18 101/52 L 99 11/05/18 08:48 11/05/18 08:48 11/05/18 08:48 11/05/18 08:48 11/05/18 08:48 Oxygen Flow Rate (L/min) 3 Oxygen Delivery Method Room Air Weight: 189 lb 0.001 oz Body Mass Index (BMI) 32.4 Finger Stick Blood Glucose 197 Intake and Output for Last 24 Hours 11/03/18 11/04/18 11/05/18 23:59 23:59 23:59 Intake Total 2711 / 2711 1090 / 1090 300 / 300 Output Total 2125 / 2125 1875 / 1875 Balance 586 / 586 -785 / -785 300 / 300 General: Alert, Oriented x3, Cooperative, No apparent distress HEENT: Atraumatic, PERRLA, EOMI, Normocephalic Oral: Moist Mucosa Neck: Supple, No JVD, Negative Carotid Bruits Lungs: Clear to auscultation, Normal air movement, No rhonchi, No wheeze, No rales Cardiovascular: Regular rate, Regular Rhythm, Normal S1, Normal S2, No murmurs Abdomen: Bowel Sounds Present, Soft, Non Tender, Non-Distended, No Hepato-splenomegaly Extremities: No clubbing, No cyanosis, No edema, Capillary Refill Less than 3 Seconds, - - LLE bandaged Skin: No rashes, No breakdown Musculoskeletal: No Tenderness to Palpation of Joints or Extremities Lymphatic: No Cervical, Supraclavicular, or Inguinal Adenopathy Neurological: Cranial nerves II-XII grossly intact, Neuro grossly intact Psych/Mental Status: Normal Affect, Appropriate, Alert and oriented to time, place, person, mood and affect Microbiology Past 72 Hours 10/29/18 18:32 Bone - Ankle Gram Stain - Final 10/29/18 18:32 Bone - Ankle Wound Culture - Final No growth aerobically. 10/29/18 18:32 Bone - Ankle Anaerobic Culture - Final No anaerobic bacteria isolated. Laboratory Results 11/04/18 11:48: POC Glucose 143 H 11/04/18 16:20: POC Glucose 193 H 11/04/18 21:11: POC Glucose 166 H 11/05/18 07:04: POC Glucose 96 11/05/18 08:51: POC Glucose 160 H Current Medications Atorvastatin Calcium (Lipitor) 40 mg PO QHS [facility] Last Admin: 11/04/18 21:08 Dose: 40 mg Docusate Sodium (Colace) 100 mg PO BID PRN PRN PRN Reason: Constipation Duloxetine HCl (Cymbalta) 60 mg PO DAILY [facility] Last Admin: 11/05/18 08:52 Dose: 60 mg Enoxaparin Sodium (Lovenox) 40 mg SC DAILY@0600 [facility] Last Admin: 11/05/18 06:57 Dose: 40 mg Ergocalciferol (Vitamin D) 50,000 unit PO Sa@0800 [facility] Last Admin: 11/03/18 08:46 Dose: 50,000 unit Hydralazine HCl (Apresoline Iv) 10 mg IV Q4H PRN PRN PRN Reason: SBP > 160 Naloxone HCl 4 mg/ Dextrose 504 mls @ 0 mls/hr IV .Q0M PRN; Protocol PRN Reason: To maintain Resp. rate >10 Insulin Glargine (Lantus (Bkc)) 40 units SC QHS [facility] Last Admin: 11/04/18 21:13 Dose: 40 units Insulin Human Lispro (Humalog Kwikpen (Bkc)) 10 unit SC TIDCM [facility]; Protocol Last Admin: 11/05/18 08:56 Dose: 10 units Insulin Human Lispro (Humalog Kwikpen (Bkc)) 0 unit SC ACHS [facility]; Protocol Last Admin: 11/05/18 07:05 Dose: Not Given Lactobacillus Acidophilus (Acidophilus) 1 tablet PO BID [facility] Last Admin: 11/05/18 08:52 Dose: 1 tablet Lactulose (Chronulac, Cephulac) 10 gm PO TID [facility] Last Admin: 11/05/18 07:01 Dose: Not Given Loperamide HCl (Imodium) 2 mg PO Q4H PRN PRN PRN Reason: Constipation Lorazepam (Ativan) 0.5 mg PO QHS [facility] Last Admin: 11/04/18 21:07 Dose: 0.5 mg Magnesium Hydroxide (Milk Of Magnesia) 30 ml PO DAILY PRN PRN PRN Reason: Constipation Melatonin (Melatonin) 3 mg PO QHS [facility] Last Admin: 11/04/18 21:07 Dose: 3 mg Multivitamins/Minerals ([facility]) [facility] Last Admin: 11/05/18 08:52 Dose: 1 tablet Naloxone HCl (Narcan) 0.02 mg IV Q1M PRN PRN Reason: RR <10 and pt unresponsive Nutritional Formula (Lactose Free) (Glucerna Shake) 120 ml PO 4X/DAY [facility] Last Admin: 11/05/18 09:00 Dose: Not Given Oxycodone HCl (Oxyir) 10 mg PO Q6H PRN PRN PRN Reason: SEVERE PAIN (6-10/10) Last Admin: 11/05/18 08:55 Dose: 10 mg Pantoprazole Sodium (Protonix) 20 mg PO DAILY [facility] Last Admin: 11/05/18 08:55 Dose: 20 mg Promethazine HCl (Phenergan Tablet) 12.5 mg PO Q6H PRN PRN PRN Reason: NAUSEA/VOMITING Last Admin: 11/04/18 16:18 Dose: 12.5 mg Sodium Chloride () 5 - 15 ml IV UD PRN PRN Reason: SALINE FLUSH Last Admin: 11/03/18 10:09 Dose: 10 ml Tamsulosin HCl (Flomax) 0.4 mg PO DAILY@1730 [facility] Last Admin: 11/04/18 16:21 Dose: 0.4 mg Medical Necessity - Tobacco Use Smoking Status: Current every day smoker Tobacco Use: Cigarettes Assessment/Plan All Active Problems (Last Reviewed 06/05/18 @ 08:58 by Marta Santos) Complicated fracture of left calcaneum (Acute) Complicated fracture of left talus (Acute) Charcot's joint, left ankle and foot (Acute) Osteomyelitis of ankle or foot (Resolved) Diabetic foot infection (Resolved) Diabetic infected right heel ulcer (Resolved) 1. LLE charcot neuropathy s/p surgery today is POD 8 pain is well controlled opiates on hold o/a of acute metabolic encephalopathy PT/OT on board pain management as per podiatry weight bearing status as per podiatry 2. Acute hepatic encephalopathy has improved significantly; still on lactulose total bilirubin trended down to 1.5 yesterday hepatitis panel was negative to follow up with fine dining server on discharge o/a of suspicion for cirrhosis, possibly CAMPOS 3. AK I likely prerenal due to hypotension Resolved. encourage oral hydration 4. Anemia Hb stabilised around 8.4 repeated blood draws likely play a role currently asymptomatic Iron panel showed anemia of chronic disease pattern. will defer transfusion until Hb falls to <7 5. urine retention improving on flomax straight cath prn 6. Hypertension: BP meds were held o/a of her being hypotensive. BP has been controlled on no oral meds. Will dc her meds. PCP to decide about resuming her meds based on how her BP is in SNF. 7. Thrombocytopenia:stable. Platelets stabilised at around 141. 8. Anxiety and depression: on Cymbalta 9. Hyperlipidemia: on statin. 10. GERD; on PPI 11. Diabetes mellitus: on insulin lantus 40IU qhs. on ISS. Accuchecks ACHS. DVT prophylaxis:on lovenox, as per podiatry. TO consider stopping if platelets fall to <100 Disposition:for DC to SNF today.
--- NOTE | 2018-11-05 11:21 | PN_ITS ---
Subjective: Patient seen and examined. She had no complaints and had an uneventful night. 12 point review of systems otherwise negative. Labs and vitals reviewed. She is to be discharged to the custodial today. Vitals/I&O's: Vital Signs Temp Pulse Resp BP Pulse Ox 98.5 F 87 18 101/52 L 99 11/05/18 08:48 11/05/18 08:48 11/05/18 08:48 11/05/18 08:48 11/05/18 08:48 Oxygen Flow Rate (L/min) 3 Oxygen Delivery Method Room Air Weight: 189 lb 0.001 oz Body Mass Index (BMI) 32.4 Finger Stick Blood Glucose 197 Intake and Output for Last 24 Hours 11/03/18 11/04/18 11/05/18 23:59 23:59 23:59 Intake Total 2711 / 2711 1090 / 1090 300 / 300 Output Total 2125 / 2125 1875 / 1875 Balance 586 / 586 -785 / -785 300 / 300 General: Alert, Oriented x3, Cooperative, No apparent distress HEENT: Atraumatic, PERRLA, EOMI, Normocephalic Oral: Moist Mucosa Neck: Supple, No JVD, Negative Carotid Bruits Lungs: Clear to auscultation, Normal air movement, No rhonchi, No wheeze, No rales Cardiovascular: Regular rate, Regular Rhythm, Normal S1, Normal S2, No murmurs Abdomen: Bowel Sounds Present, Soft, Non Tender, Non-Distended, No Hepato- splenomegaly Extremities: No clubbing, No cyanosis, No edema, Capillary Refill Less than 3 Seconds, - - LLE bandaged Skin: No rashes, No breakdown Musculoskeletal: No Tenderness to Palpation of Joints or Extremities Lymphatic: No Cervical, Supraclavicular, or Inguinal Adenopathy Neurological: Cranial nerves II-XII grossly intact, Neuro grossly intact Psych/Mental Status: Normal Affect, Appropriate, Alert and oriented to time, place, person, mood and affect Microbiology Past 72 Hours 10/29/18 18:32 Bone - Ankle Gram Stain - Final 10/29/18 18:32 Bone - Ankle Wound Culture - Final No growth aerobically. 10/29/18 18:32 Bone - Ankle Anaerobic Culture - Final No anaerobic bacteria isolated. Laboratory Results 11/04/18 11:48: POC Glucose 143 H 11/04/18 16:20: POC Glucose 193 H 11/04/18 21:11: POC Glucose 166 H 11/05/18 07:04: POC Glucose 96 11/05/18 08:51: POC Glucose 160 H Current Medications Atorvastatin Calcium (Lipitor) 40 mg PO QHS [facility] Last Admin: 11/04/18 21:08 Dose: 40 mg Docusate Sodium (Colace) 100 mg PO BID PRN PRN PRN Reason: Constipation Duloxetine HCl (Cymbalta) 60 mg PO DAILY [facility] Last Admin: 11/05/18 08:52 Dose: 60 mg Enoxaparin Sodium (Lovenox) 40 mg SC DAILY@0600 [facility] Last Admin: 11/05/18 06:57 Dose: 40 mg Ergocalciferol (Vitamin D) 50,000 unit PO Sa@0800 [facility] Last Admin: 11/03/18 08:46 Dose: 50,000 unit Hydralazine HCl (Apresoline Iv) 10 mg IV Q4H PRN PRN PRN Reason: SBP > 160 Naloxone HCl 4 mg/ Dextrose 504 mls @ 0 mls/hr IV .Q0M PRN; Protocol PRN Reason: To maintain Resp. rate >10 Insulin Glargine (Lantus (Bkc)) 40 units SC QHS [facility] Last Admin: 11/04/18 21:13 Dose: 40 units Insulin Human Lispro (Humalog Kwikpen (Bkc)) 10 unit SC TIDCM [facility]; Protocol Last Admin: 11/05/18 08:56 Dose: 10 units Insulin Human Lispro (Humalog Kwikpen (Bkc)) 0 unit SC ACHS [facility]; Protocol Last Admin: 11/05/18 07:05 Dose: Not Given Lactobacillus Acidophilus (Acidophilus) 1 tablet PO BID [facility] Last Admin: 11/05/18 08:52 Dose: 1 tablet Lactulose (Chronulac, Cephulac) 10 gm PO TID [facility] Last Admin: 11/05/18 07:01 Dose: Not Given Loperamide HCl (Imodium) 2 mg PO Q4H PRN PRN PRN Reason: Constipation Lorazepam (Ativan) 0.5 mg PO QHS [facility] Last Admin: 11/04/18 21:07 Dose: 0.5 mg Magnesium Hydroxide (Milk Of Magnesia) 30 ml PO DAILY PRN PRN PRN Reason: Constipation Melatonin (Melatonin) 3 mg PO QHS [facility] Last Admin: 11/04/18 21:07 Dose: 3 mg Multivitamins/Minerals ([facility]ivitamin With Minerals) [facility] Last Admin: 11/05/18 08:52 Dose: 1 tablet Naloxone HCl (Narcan) 0.02 mg IV Q1M PRN PRN Reason: RR <10 and pt unresponsive Nutritional Formula (Lactose Free) (Glucerna Shake) 120 ml PO 4X/DAY [facility] Last Admin: 11/05/18 09:00 Dose: Not Given Oxycodone HCl (Oxyir) 10 mg PO Q6H PRN PRN PRN Reason: SEVERE PAIN (6-10/10) Last Admin: 11/05/18 08:55 Dose: 10 mg Pantoprazole Sodium (Protonix) 20 mg PO DAILY [facility] Last Admin: 11/05/18 08:55 Dose: 20 mg Promethazine HCl (Phenergan Tablet) 12.5 mg PO Q6H PRN PRN PRN Reason: NAUSEA/VOMITING Last Admin: 11/04/18 16:18 Dose: 12.5 mg Sodium Chloride () 5 - 15 ml IV UD PRN PRN Reason: SALINE FLUSH Last Admin: 11/03/18 10:09 Dose: 10 ml Tamsulosin HCl (Flomax) 0.4 mg PO DAILY@1730 [facility] Last Admin: 11/04/18 16:21 Dose: 0.4 mg Medical Necessity - Tobacco Use Smoking Status: Current every day smoker Tobacco Use: Cigarettes Assessment/Plan All Active Problems (Last Reviewed 06/05/18 @ 08:58 by Marta Santos) Complicated fracture of left calcaneum (Acute) Complicated fracture of left talus (Acute) Charcot's joint, left ankle and foot (Acute) Osteomyelitis of ankle or foot (Resolved) Diabetic foot infection (Resolved) Diabetic infected right heel ulcer (Resolved) 1. LLE charcot neuropathy s/p surgery * today is POD 8 * pain is well controlled * opiates on hold o/a of acute metabolic encephalopathy * PT/OT on board * pain management as per podiatry * weight bearing status as per podiatry * 2. Acute hepatic encephalopathy * has improved significantly; still on lactulose * total bilirubin trended down to 1.5 yesterday * hepatitis panel was negative * to follow up with choke reamer on discharge o/a of suspicion for cirrhosis, possibly CAMPOS * 3. AK I likely prerenal due to hypotension * Resolved. * encourage oral hydration * 4. Anemia * Hb stabilised around 8.4 * repeated blood draws likely play a role * currently asymptomatic * Iron panel showed anemia of chronic disease pattern. * will defer transfusion until Hb falls to <7 * 5. urine retention * improving * on flomax * straight cath prn * * 6. Hypertension: * BP meds were held o/a of her being hypotensive. BP has been controlled on no oral meds. * Will dc her meds. * PCP to decide about resuming her meds based on how her BP is in SNF. * 7. Thrombocytopenia:stable. Platelets stabilised at around 141. 8. Anxiety and depression: on Cymbalta 9. Hyperlipidemia: on statin. 10. GERD; on PPI 11. Diabetes mellitus: on insulin lantus 40IU qhs. on ISS. Accuchecks ACHS. DVT prophylaxis:on lovenox, as per podiatry. TO consider stopping if platelets fall to <100 Disposition:for DC to SNF today.
[2018-11-05 11:26] LABS: Bedside Glucose 163 mg/dL (70-110)
--- NOTE | 2018-11-05 12:31 | TREXTCAR_ITS ---
- Diet 10/29/18 20:13 ADA [Diet: Calorie Controlled] Type of Dietary Supplement:: Pato ([place]) Is pt able to select menu?: Yes How many daily calories?: 1800 calorie - Routine Orders/Code Status Enema Type: Fleetz Enema Frequency: Daily PRN Suppository Type: Dulcolax 10mg Suppository Frequency: Daily PRN O2 Frequency: PRN Keep PO Greater than or Equal to (%): 92 - Wound(s) LT FOOT Wound Type: Surgical Incision Dressing Change: Dry Sterile Dressing - Therapies Weight Bearing: Non weight bearing - of LLE Physical Therapy: Eval and Treat Occupational Therapy: Eval and Treat - Allergies/Procedures Done in Hospital Allergies/Adverse Reactions: Allergies clindamycin [From Cleocin] Allergy (Verified 10/16/18 11:15) Itching Sulfa (Sulfonamide Antibiotics) Allergy (Verified 10/16/18 11:15) Itching ondansetron [From Zofran (as hydrochloride)] Adverse Reaction (Verified 10/16/18 11:15) Nausea - Type of Care/Length of Stay Estimated LOS: Convalescent Care Less Than 30 days Type of Care Needed: Skilled Rehab Potential: Good Prognosis: Good - Additional Orders/Day of Discharge Day of Discharge: 11/05/18 - Dietary and Speech Recommendations Dietitian Recommendations/Changes: Will d/c for Glucerna shake 120 cc 4x/day w/ medpass d/t hx poor po intake and offer ensure pudding or magic cup w/ meals instead. Please order Pato bid from pharmacy to help w/ healing - not dietary. Rec diet change to 1800 stephanie Cardiac / low sodium - Follow Up Care Primary Care Physician: Tariq Tyson MD [Primary Care Provider] - Please follow up with your Primary Care Physician in: one week Please Follow Up With: Eliazar Pérez MD When: 1-2 weeks
--- NOTE | 2018-11-05 12:33 | DS.PCM_ITS ---
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 Luke. Abnormal EKG (Chronic) ekg's indicating possible previous inferior infarct HTN (hypertension) (Chronic) Debility (Chronic) MRSA (methicillin resistant Staphylococcus aureus) infection (Chronic) Type II diabetes mellitus (Chronic) Peripheral neuropathy (Chronic) Tobacco use disorder (Chronic) Obesity (Chronic) Hospital Course and Treatment Imaging Results: Diagnostic Data Ankle X-Ray 10/29/18 18:45 IMPRESSION: Anatomic alignment status post arthrodesis of the tibiotalar joint. Avascular necrosis of the talus. Narrowing of the tibiotalar and subtalar joints. Additional chronic findings are detailed above. Electronically Signed: Wanda Amato MD at 20:52 EST Tel , Service support , Foot X-Ray 10/29/18 18:45 IMPRESSION: 1. Documentation of surgical arthrodesis of the tibiotalar articulation as well as several the articulations of the hindfoot. 2. Osteoporosis. 3. Status post amputations of the phalanges of the fourth and fifth toes, most of the fourth metatarsal and the entire fifth metatarsal. Electronically Signed: Ksenia Yoo MD at 2:04 EST , Service support , Liver Ultrasound 10/31/18 12:25 IMPRESSION: Mild ascites. Mild coarse echotexture of the liver. Mild biliary prominence. Electronically Signed: Case Liu DO at 0:04 EST Tel [phone], Service support , hospitalist Operations: - - left tibiocalcaneal and talonavicular arthrodesis Procedures: None Summary of Care Provided: Patient is a 58 y/o female with a history of diabetes mellitus, hypertension, depression and peripheral neuropathy and chronic pain as well as anxiety. She had also had a previous left fourth and fifth ray amputation secondary to necrotizing fasciitis in 2016. She was admitted for surgery on her left foot and ankle due to Charcot arthropathy and was subsequently admitted for postoperative pain management. 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 Initial management was conservative a patient was nonadherent with staying off her foot and immobilization and subsequently developed a nonhealing Charcot neuroarthropathy with significant instability and breakdown of the foot and ankle. She underwent a tibial talocalcaneal arthrodesis as well as talonavicular arthrodesis. Post operatively, pain remained well controlled. However, post op course was complicated by worsening acute metabolic encephalopathy which was initially thought to be due to opiates. However, times persisted even after opiates were stopped. Liver enzymes check showed elevated ammonia level and elevated bilirubin which trended up and peaked at about 2.5. Patient was therefore started on lactulose for acute hepatic encephalopathy. Liver ultrasound done showed coarse echo texture of the liver. Hepatitis panel was negative. Lipid panel was also not elevated. Because of liver pathology was not clear at time of discharge. Patient's confusion resolved with administration of lactulose. She remained stable and was discharged to a alf on 11/05/2018. She is to follow-up with her primary care doctor and console attendant. She was also referred to follow-up with underground miner on account of the liver pathology. OA RRS was checked and no red flags were seen. Patient was given a prescription for p.o. OxyContin 10mg twice daily for 10 tablets in total and no refills. She was also given a prescription for p.o. oxycodone 5 mg every 6 hours as needed for total of 20 pills. Per podiatry, She is to continue with subcu Lovenox 40 mg daily for another week to give a total of 2 weeks of DVT prophylaxis post surgery. Patient seen and examined prior to discharge. No complaints and felt well. She denied any fever or chills, any cough or chest pain, any shortness of breath, any abdominal pain, any diarrhea or vomiting. 12 point review of systems is otherwise negative. Labs and vitals reviewed. Home medications reviewed and reconciled. o/e: Vital Signs Height 5 ft 4 in Weight: 189 lb 0.001 oz Weight in Pounds 189.0 lbs Pulse Ox 99 Temperature 98.5 F Pulse Rate 87 Respiratory Rate 18 Blood Pressure 101/52 Blood Pressure Position Right Lateral General: Alert, Oriented x3, Cooperative, No apparent distress HEENT: Atraumatic, PERRLA, EOMI, Normocephalic Oral: Moist Mucosa Neck: Supple, No JVD, Negative Carotid Bruits Lungs: Clear to auscultation, Normal air movement, No rhonchi, No wheeze, No rales Cardiovascular: Regular rate, Regular Rhythm, Normal S1, Normal S2, No murmurs Abdomen: Bowel Sounds Present, Soft, Non Tender, Non-Distended, No Hepato- splenomegaly Extremities: No clubbing, No cyanosis, No edema, Capillary Refill Less than 3 Seconds, - - LLE bandaged Skin: No rashes, No breakdown Musculoskeletal: No Tenderness to Palpation of Joints or Extremities Lymphatic: No Cervical, Supraclavicular, or Inguinal Adenopathy Neurological: Cranial nerves II-XII grossly intact, Neuro grossly intact Psych/Mental Status: Normal Affect, Appropriate, Alert and oriented to time, pl berenice, person, mood and affect Plan as described above [] - Physical Exam Vital Signs Temp Pulse Resp BP Pulse Ox 98.5 F 87 18 101/52 L 99 11/05/18 08:48 11/05/18 08:48 11/05/18 08:48 11/05/18 08:48 11/05/18 08:48 Oxygen Flow Rate (L/min) 3 Oxygen Delivery Method Room Air Weight: 189 lb 0.001 oz Body Mass Index (BMI) 32.4 Finger Stick Blood Glucose 197 Intake and Output for Last 24 Hours 11/03/18 11/04/18 11/05/18 23:59 23:59 23:59 Intake Total 2711 / 2711 1090 / 1090 300 / 300 Output Total 2125 / 2125 1875 / 1875 Balance 586 / 586 -785 / -785 300 / 300 Microbiology Past 72 Hours 10/29/18 18:32 Gram Stain - Final Bone - Ankle Wound Culture - Final No growth aerobically. Anaerobic Culture - Final No anaerobic bacteria isolated. POC Glucose 11/05/18 11/05/18 11/05/18 11:16 08:51 07:04 POC Glucose 163 H 160 H 96 11/04/18 11/04/18 21:11 16:20 POC Glucose 166 H 193 H Discharge Diet: Low fat/ Low Cholesterol Discharge Activity: - - nonweight bearing on LLE Weight Bearing Status: No weight bearing - on LLE Call your doctor if you observe: Fever of 101 or Higher, Coldness, Increased Pain Home Medications: Medications to take at Discharge Omeprazole 20 mg PO DAILY 12/16/16 Docusate Sodium [Colace] 100 mg PO PRN PRN 07/23/17 atorvastatin 40 mg tablet 40 mg PO QHS 06/04/18 proMETHazine tablet [Phenergan tablet] 25 mg PO Q6H PRN PRN 06/11/18 Ergocalciferol [Vitamin D] 50,000 unit PO Q7D #7 capsule 06/20/18 Gabapentin [Neurontin] 300 mg PO TID 08/24/18 Insulin Glargine [Lantus SoloStar Pen] 40 units SC QHS 08/24/18 Insulin Lispro [Humalog KwikPen] 10 unit SC TIDCM 08/24/18 Melatonin [Melatin] 3 mg PO QHS 08/24/18 Oxycodone [Oxyir] 5 mg PO Q6H 08/24/18 Bisacodyl [Dulcolax] 10 mg RECTAL PRN PRN 10/16/18 Duloxetine Hcl [Cymbalta] 60 mg PO DAILY 10/16/18 Ibuprofen [Motrin] 400 mg PO DAILY PRN PRN 10/16/18 Insulin Lispro [Humalog KwikPen] See Protocol SQ TIDCM 10/16/18 Lactobacillus Acidophilus [Acidophilus] 1 tablet PO BID 10/16/18 Loperamide [Imodium] 2 mg PO PRN PRN 10/16/18 Lorazepam [Ativan] 0.5 mg PO QHS 10/16/18 Magnesium Hydroxide [Milk Of Magnesia] 30 ml PO DAILY PRN PRN 10/16/18 Mineral Oil 118 ml RC PRN PRN 10/16/18 Multivitamins,Ther W-Minerals [Multivitamin With Minerals] 1 tablet PO DAILY 10/16/18 Enoxaparin [Lovenox] 40 mg SC DAILY@0600 #7 syringe 11/05/18 Lactulose 10 gm PO BID #30 ml 11/05/18 Oxycodone HCl [Oxycontin] 10 mg PO BID 5 Days #10 tab.er.12h 11/05/18 Oxycodone [Oxyir] 10 mg PO Q6H PRN PRN #20 tab 11/05/18 Following Prescrptions Were Given to Patient: Oxycodone [Oxyir] 10 mg PO Q6H PRN PRN #20 tab PRN Reason: Severe Pain (-08/08) Enoxaparin [Lovenox] 40 mg SC DAILY@0600 #7 syringe Lactulose 10 gm PO BID #30 ml Oxycodone HCl [Oxycontin] 10 mg PO BID 5 Days #10 tab.er.12h Other Amb Orders: 12 Lead EKG [[facility]] Time Frame: 10/29/18, Location: None Selected Primary Care Physician: Tariq Tyson MD [Primary Care Provider] - Please follow up with your Primary Care Physician in: one week Please Follow Up With: Eliazar Pérez MD When: 1-2 weeks Please Follow Up With: Jose Angel Luke DPM When: 1 week;has appointment on Monday11/09/18 [facility] Minutes spent on discharge:: 40 Patient Condition:: Stable Medical Necessity - Tobacco Use Smoking Status: Current every day smoker Tobacco Use: Cigarettes Meaningful Use Info Meaningful Use Diagnoses (Choose all that apply): None applicable Code Visit Inpatient E&M: 78989 Disch Hosp
[2018-11-05] MEDS: Insulin Lispro 100 UNIT/ML INSULN.PEN SC (12:48)
--- NOTE | 2018-11-05 13:30 | CASEMGMT ---
Social Work Note WILBER spoke with Lesly at [facility] stating pre-cert has been obtained. WILBER updated physician who states Dr. Luke is admitting and will have to complete d/c. WILBER updated charge nurse to page Dr. Thakkar. WILBER spoke with Dr. Luke who states medical hospitalist is able to complete discharge paperwork and will call hospitalist. WILBER faxed completed discharge paperwork to [facility] at [facility] including transfer to extended care facility, signed medication list and any scripts. Originals in SNF folder and copy on pt's chart. WILBER spoke with RN who states pt is able to transport via wheelchair van. WILBER set up transportation through [facility] for 2:30pm. Transportation form on SNF folder and copy on pt's chart. WILBER updated RN, Pt and placed a call to [facility] to update on transportation time. HENS is not needed as pt came from skilled side at [facility] and will be returning to skilled side. Plan: Pt to discharge to [facility] skilled with [facility] transporting via wheelchair van at 2:30pm Roberta Rojas MSW, [employer]
[2018-11-05 13:52] VITALS: BP 121/45; PULSE 80; RESP 18; TEMP 37.3; O2SAT 99
--- NOTE | 2018-11-05 14:05 | NURSING ---
REPORT CALLED TO [facility]
[2018-11-05 14:30] VITALS: BP 121/45; PULSE 80; RESP 18; TEMP 37.3; O2SAT 99
== END 2018-11-05 14:35 | disposition skilled nursing facility (03) | DRG 313 ==
PROVIDERS: Student in an Organized Health Care Education/Training Program; Admitting Provider Podiatrist; Family Provider Family Medicine; PCP Family Medicine; Referring Provider Podiatrist; Visit Provider Podiatrist
PROC: 0SGG07Z Fusion of Left Ankle Joint with Autologous Tissue Substitute, Open Approach (ICD-10-PCS; principal; 2018-10-29 12:15)
DX: M14.672 Charcot's joint, left ankle and foot (principal); K72.00 Acute and subacute hepatic failure without coma; I95.9 Hypotension, unspecified; N17.9 Acute kidney failure, unspecified; F41.9 Anxiety disorder, unspecified; E11.40 Type 2 diabetes mellitus with diabetic neuropathy, unspecified; F32.9 Major depressive disorder, single episode, unspecified; D69.6 Thrombocytopenia, unspecified; E66.9 Obesity, unspecified; F17.210 Nicotine dependence, cigarettes, uncomplicated; E78.5 Hyperlipidemia, unspecified; I10 Essential (primary) hypertension; K21.9 Gastro-esophageal reflux disease without esophagitis; E55.9 Vitamin D deficiency, unspecified; S82.892S Other fracture of left lower leg, sequela; D64.9 Anemia, unspecified; R33.9 Retention of urine, unspecified; Z68.32 Body mass index [BMI] 32.0-32.9, adult; Z79.899 Other long term (current) drug therapy; Z89.422 Acquired absence of other left toe(s); Z79.4 Long term (current) use of insulin
CPT/HCPCS: 36415; 73600; 73610; 73630; 76000; 76705; 80048; 80053; 80076; 82140; 82728; 82962; 83010; 83540; 83550; 83615; 85025; 85610; 86704; 86705; 86706; 86708; 86709; 86803; 87070; 87075; 87102; 87205; 87206; 87340; 88305; 88311; 93005; 97110; 97162; 97166; 97530; C1713; J7030; J7120; A4216

== ENCOUNTER 2018-11-21 17:49 | Emergency (ER) | payer MEDICAID, SELFPAY ==
[2018-10-29 20:01] VITALS: BMI 32.4
[2018-11-21 17:49] VITALS: BP 185/74; PULSE 85; RESP 16; TEMP 36.7; O2SAT 98; O2SAT 99; BMI 30.2
[2018-11-21 18:36] LABS: Bedside Glucose 57 mg/dL (70-110)
--- NOTE | 2018-11-21 18:38 | NURSING ---
PT ASSISTED TO [facility]SC. VOIDED. REPORTS DIZZINESS W/ACTIVITY, STATES SHE'S HUNGRY AND FEELS HER BS IS LOW. OJ GIVEN AFTER OK'D BY . BS=57. OK'D PT TO EAT. SANDWICH, MANDARIN ORANGES AND OJ PROVIDED PER PT REQUEST.
[2018-11-21 19:21] LABS: Absolute Lymphocyte Count 2.07 X10^3/ul (0.83-4.51); Absolute Neutrophil Count 3.2 X10^3/uL (2.0-7.7); Basophil# 0.04 X10^3/uL; Basophil% 0.6 % (0-1); Eosinophil# 0.35 X10^3/uL; Eosinophils% 5.5 % (0-5); Hematocrit 31.5 % (37-47); Hemoglobin 10.3 g/dl (12.0-15.0); Lymphocyte # 2.07 X10^3/ul (4.0); Lymphocyte % 32.3 % (19-41); Mean Corp Hgb Conc 32.7 g/gl (32-36); Mean Corpuscular Hgb 31.3 pg (27.0-32.0); Mean Corpuscular Volume 95.7 fL (81-99); Mean Platelet Vol. 9.3 fl (6.2-12.0); Monocyte# 0.69 X10^3/uL; Monocyte% 10.8 % (0-10); Neutrophil # 3.24 X10^3/uL (2.7-7.7); Neutrophil % 50.6 % (47-70); Platelet Count 157 K/mm3 (150-450); RBC Distribution Width CV 14.3 % (11.6-14.6); RBC Distribution Width SD 49.9 fl (35.1-43.9); Red Blood Count 3.29 M/mm3 (4.2-5.4); White Blood Count 6.4 K/mm3 (4.4-11.0)
[2018-11-21 19:36] LABS: POSITIVE COUNT NO; POSITIVE DIFFERENTIAL NO; POSITIVE MORPHOLOGY NO
[2018-11-21 19:49] LABS: International Normalized Ratio 1.2
[2018-11-21 19:56] LABS: Bedside Glucose 126 mg/dL (70-110)
[2018-11-21 20:36] LABS: AST(SGOT) 56 U/L (15-37); Alanine Aminotransfer ALT/SGPT 32 U/L (13-56); Albumin, Serum 2.2 g/dL (3.2-5.0); Alkaline Phosphatase 399 U/L (45-117); Anion Gap 8 (5-15); BUN 15 mg/dL (7-18); BUN/Creat Ratio 15.1 RATIO (10-20); Bilirubin, Direct 0.93 mg/dL (0.00-0.30); Calcium,Total 8.1 mg/dL (8.5-10.1); Chloride 103 mmol/L (98-107); Creatinine, Serum 0.99 mg/dL (0.55-1.02); EST Glomerular Filtration Rate 61 mL/min (>60); Est Glom Filt Rate - Afr Amer 73 mL/min (>60); Estimated Creatinine Clearance 52.18 ml/min; Glucose 96 mg/dL (74-106); Potassium 3.4 mmol/L (3.5-5.1); Protein, Total 7.2 g/dL (6.4-8.2); Sodium Level 136 mmol/L (136-145)
--- NOTE | 2018-11-21 20:51 | ED.VISSUMM ---
- ER Visit Summary Date of Service: 11/21/18 Chief Complaint: Abnormal LFTs History of Present Illness: The patient is a 58 F presenting for evaluation secondary to abnormal LFTs. 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 Patient apparently has been having some lower extremity edema, there was getting worked up with routine lab work at the long term. Patient was noted to have some elevated LFTs, and was recommended to come to the emergency department for further evaluation. Patient states that she is never had a history of liver failure in the past, but is on lactulose to get rid of toxins. She denies any other symptoms associated with this. Physical Examination: Vital signs notable blood pressure 188/74. Well-nourished female no acute distress. No conjunctival pallor or scleral icterus. Moist mucous membrane. Neck was supple. Heart regular rate and rhythm lungs clear abdomen soft and nontender. Extremities show +1 edema. Patient was alert and oriented with no asterixis. Test Results: CBC remarkable mild anemia hemoglobin 10.3, ammonia is down trending and is currently 53 when he was in the 90s yesterday. Liver panel shows alkaline phosphatase in the 390 range with mild elevation of ALT in the 50s, and total bilirubin only mildly elevated in the 1 range. Coagulation studies are normal. Emergency Department Course and Treatment: Patient presented due to concern for liver failure. She does not have evidence of liver failure. She has mildly abnormal liver enzymes, but her ammonia is downward trending, she has normal coagulation studies, and I do not believe that she requires admission. Further workup of this can be done as an outpatient and the patient can continue on her lactulose. Patient was discharged back to the long term. Disposition: Discharge Impression: 1. Abnormal LFTs This note was generated with Pic[employer]el dictation software. It may contain incorrect words, spelling, and punctuation that were not noted in review of the chart prior to signing ED Disposition - Plan for ED Patient: Disposition: Home or Assisted Living Chief Complaint: Abn Labs Diagnosis: Abnormal LFTs Instructions: Liver Panel Referrals: Tariq Tyson MD [Primary Care Provider] - 3-5 Days Additional Instructions: Continue taking your lactulose and followup with your PCP for further workup
[2018-11-21 20:56] VITALS: BP 174/61; PULSE 78; PULSE 79; O2SAT 97
--- NOTE | 2018-11-21 20:56 | ED.DCSUM_ITS ---
- ER Visit Summary Date of Service: 11/21/18 Chief Complaint: Abnormal LFTs History of Present Illness: The patient is a 58 F presenting for evaluation secondary to abnormal LFTs. 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 Patient apparently has been having some lower extremity edema, there was getting worked up with routine lab work at the retirement. Patient was noted to have some elevated LFTs, and was recommended to come to the emergency department for further evaluation. Patient states that she is never had a history of liver failure in the past, but is on lactulose to get rid of toxins. She denies any other symptoms associated with this. Physical Examination: Vital signs notable blood pressure 188/74. Well-nourished female no acute distress. No conjunctival pallor or scleral icterus. Moist mucous membrane. Neck was supple. Heart regular rate and rhythm lungs clear abdomen soft and nontender. Extremities show +1 edema. Patient was alert and oriented with no asterixis. Test Results: CBC remarkable mild anemia hemoglobin 10.3, ammonia is down trending and is currently 53 when he was in the 90s yesterday. Liver panel shows alkaline phosphatase in the 390 range with mild elevation of ALT in the 50s, and total bilirubin only mildly elevated in the 1 range. Coagulation studies are normal. Emergency Department Course and Treatment: Patient presented due to concern for liver failure. She does not have evidence of liver failure. She has mildly abnormal liver enzymes, but her ammonia is downward trending, she has normal coagulation studies, and I do not believe that she requires admission. Further workup of this can be done as an outpatient and the patient can continue on her lactulose. Patient was discharged back to the retirement. Disposition: Discharge Impression: 1. Abnormal LFTs This note was generated with Nginx dictation software. It may contain incorrect words, spelling, and punctuation that were not noted in review of the chart prior to signing ED Disposition - Plan for ED Patient: Disposition: Home or Assisted Living Chief Complaint: Abn Labs Diagnosis: Abnormal LFTs Instructions: Liver Panel Referrals: Tariq Tyson MD [Primary Care Provider] - 3-5 Days Additional Instructions: Continue taking your lactulose and followup with your PCP for further workup
--- NOTE | 2018-11-21 21:09 | ED.RN ---
REPORT GIVEN TO ANGELICA ROSALES AT [facility] FOR PATIENT TO RETURN BACK THERE AFTER DISCHARGE. [facility] WILL BE COMING TO GET HER.
== END 2018-11-21 21:28 | disposition home or self-care (01) ==
PROVIDERS: Emergency Provider Emergency Medicine; Family Provider Family Medicine; PCP Family Medicine
DX: R94.5 Abnormal results of liver function studies (principal); I10 Essential (primary) hypertension; E11.9 Type 2 diabetes mellitus without complications; Z79.4 Long term (current) use of insulin; Z79.899 Other long term (current) drug therapy
CPT/HCPCS: 80048; 80076; 82140; 82962; 85025; 85610; 85730; 99284

== ENCOUNTER → 2018-12-07 17:14 | Outpatient (CLI) | payer MEDICAID, SELFPAY ==
[2018-11-21 17:49] VITALS: BMI 30.2
== END ==
PROVIDERS: Family Provider Family Medicine; PCP Family Medicine; Referring Provider Podiatrist; Visit Provider Podiatrist
DX: L97.429 Non-pressure chronic ulcer of left heel and midfoot with unspecified severity (principal)
CPT/HCPCS: 87070; 87075; 87077; 87186; 87205

== ENCOUNTER → 2019-01-03 13:54 | Outpatient (CLI) | payer MEDICAID, SELFPAY ==
[2019-01-03 16:56] LABS: Absolute Lymphocyte Count 2.44 X10^3/ul (0.83-4.51); Absolute Neutrophil Count 3.3 X10^3/uL (2.0-7.7); Basophil# 0.05 X10^3/uL; Basophil% 0.7 % (0-1); Eosinophil# 0.41 X10^3/uL; Hematocrit 41.2 % (37-47); Lymphocyte # 2.44 X10^3/ul (4.0); Lymphocyte % 35.8 % (19-41); Mean Corp Hgb Conc 31.6 g/gl (32-36); Mean Corpuscular Hgb 29.3 pg (27.0-32.0); Mean Corpuscular Volume 92.8 fL (81-99); Mean Platelet Vol. 12.9 fl (6.2-12.0); Monocyte# 0.56 X10^3/uL; Monocyte% 8.2 % (0-10); Neutrophil # 3.34 X10^3/uL (2.7-7.7); Neutrophil % 49.2 % (47-70); Platelet Count 171 K/mm3 (150-450); RBC Distribution Width CV 14.8 % (11.6-14.6); RBC Distribution Width SD 48.2 fl (35.1-43.9); Red Blood Count 4.44 M/mm3 (4.2-5.4); White Blood Count 6.8 K/mm3 (4.4-11.0)
[2019-01-03 17:33] LABS: ALB/GLOB Ratio 0.5 RATIO (0.9-2.4); AST(SGOT) 73 U/L (15-37); Alanine Aminotransfer ALT/SGPT 33 U/L (13-56); Albumin, Serum 2.7 g/dL (3.2-5.0); Alkaline Phosphatase 348 U/L (45-117); Anion Gap 10 (5-15); BUN 18 mg/dL (7-18); BUN/Creat Ratio 14.5 RATIO (10-20); Calcium,Total 8.7 mg/dL (8.5-10.1); Chloride 101 mmol/L (98-107); Creatinine, Serum 1.24 mg/dL (0.55-1.02); EST Glomerular Filtration Rate 47 mL/min (>60); Est Glom Filt Rate - Afr Amer 57 mL/min (>60); Globulin 5.4 g/dL (2.2-4.2); Glucose 140 mg/dL (74-106); Potassium 3.4 mmol/L (3.5-5.1); Protein, Total 8.1 g/dL (6.4-8.2); Sodium Level 139 mmol/L (136-145); Thyroid Stim Hormone (TSH) 1.02 uIU/mL (0.358-3.74)
[2019-01-03 18:00] LABS: Vitamin D,25 Hydroxy 16.6 ng/mL (29.95-100.01)
[2019-01-03 18:04] LABS: POSITIVE COUNT NO; POSITIVE DIFFERENTIAL NO; POSITIVE MORPHOLOGY NO
== END ==
PROVIDERS: Visit Provider Family Medicine Geriatric Medicine
DX: E11.9 Type 2 diabetes mellitus without complications (principal); E55.9 Vitamin D deficiency, unspecified; I10 Essential (primary) hypertension
CPT/HCPCS: 36415; 80053; 82306; 84443; 85025

== ENCOUNTER → 2019-03-29 16:04 | Outpatient (CLI) | payer MEDICAID, SELFPAY ==
[2019-03-29 17:24] LABS: Mucous, Urine 0 SEEN /hpf (<or=2+); Red Blood Cells-Urine 0 SEEN /hpf (0-5)
[2019-03-29 18:55] LABS: Color, Urine Yellow (Yellow); Glucose, Dipstick 1000 mg/dl (Normal); Ketone-Dipstick Negative (Negative); Leukocyte Esterase-Dipstick Negative /ul (Negative); Nitrite-Dipstick Negative (Negative); Occult Blood-Urine 10 /ul (Negative); Protein-Dipstick 100 mg/dl (Negative); Specific Gravity, Urine 1.015 (1.002-1.030); Urine Bilirubin Dipstick Negative (Negative); Urine Clarity Sl. Cloudy (Clear); Urine Urobilinogen 4 mg/dl (Normal)
[2019-03-29 19:08] LABS: Bacteria 1+ /hpf (None Seen); Squamous Epithelial Cells - UA 10-25 SEEN /hpf (5-10); White Blood Cells 0-5 SEEN /hpf (0-5)
[2019-03-29 19:58] LABS: Amphetamine Urine VISTA NEGATIVE (<1000 ng/mL); Barbiturate Urine VISTA NEGATIVE (< 200 ng/mL); Benzodiazepine Urine VISTA NEGATIVE (< 200 ng/mL); Cocaine Urine VISTA NEGATIVE (< 300 ng/mL); Ecstacy Urine VISTA NEGATIVE (< 500 ng/mL); Methadone Urine VISTA NEGATIVE (< 300 ng/mL); PCP Urine VISTA NEGATIVE (< 25 ng/mL); THC Urine VISTA NEGATIVE (< 50 ng/mL); Vista UDS pH Range 5
== END ==
PROVIDERS: Family Provider Family Medicine Geriatric Medicine; PCP Family Medicine Geriatric Medicine
DX: R30.0 Dysuria (principal); Z51.81 Encounter for therapeutic drug level monitoring; Z79.891 Long term (current) use of opiate analgesic; Z79.899 Other long term (current) drug therapy
CPT/HCPCS: 80307; 81001; 87086; 87088

== ENCOUNTER → 2019-04-03 10:30 | Outpatient (CLI) | payer MEDICAID, SELFPAY ==
[2019-04-03 15:25] LABS: Bacteria 0 SEEN /hpf (None Seen); Mucous, Urine 0 SEEN /hpf (<or=2+); Red Blood Cells-Urine 0 SEEN /hpf (0-5)
[2019-04-03 15:30] LABS: Color, Urine Yellow (Yellow); Glucose, Dipstick Normal (Normal); Ketone-Dipstick Negative (Negative); Leukocyte Esterase-Dipstick 25 /ul (Negative); Nitrite-Dipstick Negative (Negative); Occult Blood-Urine 25 /ul (Negative); Protein-Dipstick 100 mg/dl (Negative); Specific Gravity, Urine 1.015 (1.002-1.030); Urine Bilirubin Dipstick Negative (Negative); Urine Clarity Clear (Clear); Urine Urobilinogen 4 mg/dl (Normal)
[2019-04-03 15:58] LABS: Squamous Epithelial Cells - UA 0-5 SEEN /hpf (5-10); White Blood Cells 0-5 SEEN /hpf (0-5)
== END ==
PROVIDERS: Family Provider Family Medicine Geriatric Medicine; PCP Family Medicine Geriatric Medicine; Visit Provider Family Medicine Geriatric Medicine
DX: R30.0 Dysuria (principal); E11.9 Type 2 diabetes mellitus without complications; E55.9 Vitamin D deficiency, unspecified; I10 Essential (primary) hypertension
CPT/HCPCS: 81001; 87086; 87088

== ENCOUNTER 2019-04-17 18:40 | Emergency (ER) | payer MEDICAID, SELFPAY ==
[2019-04-17 18:41] VITALS: BP 150/70; PULSE 88; RESP 16; TEMP 36.4; O2SAT 96; BMI 29.4
--- NOTE | 2019-04-17 19:04 | US_ITS ---
STUDY: VENOUS DOPPLER ULTRASOUND - LEFT LOWER EXTREMITY REASON FOR EXAM: Female, 59 years old. Swelling TECHNIQUE: Ultrasound evaluation of the deep vein system to include hernandez-scale imaging and compression was performed. Hernandez-scale imaging and Doppler sonographic evaluation, including duplex spectral analysis and qualitative color flow sonography, was performed. COMPARISON: None. FINDINGS: Common Femoral Vein: Normal compression, spontaneity and augmentation. Normal color Doppler. Common Femoral Vein/Greater Saphenous Junction: Normal compression, spontaneity and augmentation. Normal color Doppler. Deep Femoral Vein: Normal compression, spontaneity and augmentation. Normal color Doppler. Femoral Proximal: Normal compression, spontaneity and augmentation. Normal color Doppler. Femoral Middle: Normal compression, spontaneity and augmentation. Normal color Doppler. Femoral Distal: Normal compression, spontaneity and augmentation. Normal color Doppler. Popliteal Vein: Normal compression, spontaneity and augmentation. Normal color Doppler. Posterior Tibial Vein: Normal compression, spontaneity and augmentation. Normal color Doppler. Peroneal Vein: Normal compression, spontaneity and augmentation. Normal color Doppler. US/Venous Duplex Imag/Limited/Uni IMPRESSION: Normal venous Doppler ultrasound of the lower extremity. Electronically Signed: Jose Angel Mathur MD at 19:56 EDT , Service support ,
--- NOTE | 2019-04-17 19:15 | RAD_ITS ---
STUDY: X-RAY - LEFT KNEE REASON FOR EXAM: Female, 59 years old. Trauma TECHNIQUE: 4 view(s) of the knee. COMPARISON: None. FINDINGS: Normal visualized distal femur. Normal visualized proximal tibia and fibula. Normal proximal tibiofibular articulation. Normal medial femorotibial compartment. Normal lateral femorotibial compartment. Normal patellofemoral articulation. The soft tissue structures are unremarkable. RAD/Knee 4 or More Views IMPRESSION: Normal x-ray examination of the knee. Electronically Signed: Jose Angel Mathur MD at 20:08 EDT , Service support ,
--- NOTE | 2019-04-17 20:01 | ED.VISSUMM ---
- ER Visit Summary Date of Service: 04/17/19 Chief Complaint: [Pain left knee] History of Present Illness: The patient is a 59 F [resents the emergency department with pain in her left knee for about a week. Patient states that she put her left knee on a couch cushion and she thinks it may have twisted a week ago. Patient was seen by her collateral specialist today for follow-up visit because she had surgery on her left ankle October 29. There was concern because of the swelling that patient could potentially have a DVT so sent to the ER for evaluation. She denies any chest pain or shortness of breath. She denies any fevers. She has been nonweightbearing since September.] Physical Examination: [HEENT-PERRLA, EOMI. Cranial nerves II through XII grossly intact. TMs clear. Mucous membranes moist. No adenopathy. Cardiovascular-regular rate and rhythm without murmur or ectopy Lungs-clear to auscultation, chest wall stable without crepitus or subcu emphysema Abdomen-normoactive bowel sounds, soft, nontender, no rebound or rigidity, no peritoneal signs. Extremities-intact ?4, normal range of motion, normal pulses, atraumatic. Left knee-patient does have a joint effusion. Patient has pain with range of motion. There is no erythema or warmth noted. Patient also has some mild diffuse swelling over the left calf and lower leg. She is neurovascular intact distally. No ropes or cords palpated.] Test Results: [X-rays the left knee read by myself as no acute fractures although she did have an effusion. Venous Doppler of the left lower extremity was negative for DVT.] Emergency Department Course and Treatment: [Exam not consistent with a septic knee.] Treatment Plan: [Patient to follow-up with orthopedics computational theory scientist in 3 to 5 days] Disposition: [Discharged home in stable condition. Patient to continue nonweightbearing status.] Impression: [Left knee pain/effusion-etiology uncertain] This note was generated with [employer] dictation software. It may contain incorrect words, spelling, and punctuation that were not noted in review of the chart prior to signing ED Disposition - Plan for ED Patient: Referrals: Froilan Rosenthal Chi, MD [Primary Care Provider] -
--- NOTE | 2019-04-17 20:07 | ED.DEP ---
ED Disposition - Plan for ED Patient: Instructions: KNEE PAIN, Uncertain Cause Referrals: Froilan Rosenthal Chi, MD [Primary Care Provider] - Randall Navarrete DO [STAFF PHYSICIAN] - 3-5 Days
[2019-04-17 20:35] VITALS: RESP 18
== END 2019-04-17 20:36 | disposition home or self-care (01) ==
LOC: ED 19:58
PROVIDERS: Emergency Provider Emergency Medicine; Family Provider Family Medicine Geriatric Medicine; PCP Family Medicine Geriatric Medicine
DX: M25.562 Pain in left knee (principal); M25.462 Effusion, left knee; I10 Essential (primary) hypertension; E11.9 Type 2 diabetes mellitus without complications; F32.9 Major depressive disorder, single episode, unspecified; F41.9 Anxiety disorder, unspecified; Z79.4 Long term (current) use of insulin; Z79.899 Other long term (current) drug therapy; Z72.0 Tobacco use
CPT/HCPCS: 73564; 93971; 99282

== ENCOUNTER → 2019-04-27 19:48 | Outpatient (CLI) | payer MEDICAID, SELFPAY ==
[2019-04-17 18:41] VITALS: BMI 29.4
[2019-04-27 20:09] LABS: Hematocrit 36.6 % (37-47); Hemoglobin 12.2 g/dl (12.0-15.0); Mean Corp Hgb Conc 33.3 g/gl (32-36); Mean Corpuscular Hgb 31.4 pg (27.0-32.0); Mean Corpuscular Volume 94.1 fL (81-99); Mean Platelet Vol. 10.2 fl (6.2-12.0); Platelet Count 178 K/mm3 (150-450); RBC Distribution Width CV 14.4 % (11.6-14.6); RBC Distribution Width SD 49.4 fl (35.1-43.9); Red Blood Count 3.89 M/mm3 (4.2-5.4); Scan Indicated on CBC? Y/N NO; White Blood Count 5.2 K/mm3 (4.4-11.0)
[2019-04-27 20:29] LABS: Hemoglobin A1c 8.4 % (4.2-6.3)
[2019-04-27 20:30] LABS: ALB/GLOB Ratio 0.6 RATIO (0.9-2.4); AST(SGOT) 46 U/L (15-37); Alanine Aminotransfer ALT/SGPT 23 U/L (13-56); Albumin, Serum 2.3 g/dL (3.2-5.0); Alkaline Phosphatase 282 U/L (45-117); Anion Gap 5 (5-15); BUN 17 mg/dL (7-18); BUN/Creat Ratio 16.3 RATIO (10-20); Calcium,Total 7.8 mg/dL (8.5-10.1); Chloride 104 mmol/L (98-107); Cholesterol 155 mg/dL (200); Creatinine, Serum 1.04 mg/dL (0.55-1.02); EST Glomerular Filtration Rate 57 mL/min (>60); Est Glom Filt Rate - Afr Amer 69 mL/min (>60); Globulin 4.1 g/dL (2.2-4.2); Glucose 224 mg/dL (74-106); High Density Lipoprotein 28 mg/dL; Potassium 3.5 mmol/L (3.5-5.1); Protein, Total 6.4 g/dL (6.4-8.2); Sodium Level 136 mmol/L (136-145); Thyroid Stim Hormone (TSH) 0.82 uIU/mL (0.358-3.74); Triglycerides 164 mg/dL; Very Low Density Lipoprotein 33 mg/dL (5-40)
[2019-04-27 21:00] LABS: BNP,B-Type NATRIURETIC PEPTIDE 67.8 pg/mL (0-100)
== END ==
PROVIDERS: Family Provider Family Medicine Geriatric Medicine; PCP Family Medicine Geriatric Medicine; Visit Provider Orthopaedic Surgery
DX: R60.9 Edema, unspecified (principal); M14.672 Charcot's joint, left ankle and foot; E11.9 Type 2 diabetes mellitus without complications; G62.9 Polyneuropathy, unspecified
CPT/HCPCS: 36415; 80053; 80061; 82140; 83036; 83880; 84443; 85027

== ENCOUNTER → 2019-08-02 12:47 | Outpatient (CLI) | payer MEDICARE, MEDICAID, SELFPAY ==
[2019-08-02 13:39] LABS: Hematocrit 38.5 % (37-47); Mean Corp Hgb Conc 33.8 g/dL (32-36); Mean Corpuscular Hgb 31.8 pg (27.0-32.0); Mean Corpuscular Volume 94.1 fL (81-99); Mean Platelet Vol. 9.9 fl (6.2-12.0); Platelet Count 167 K/mm3 (150-450); RBC Distribution Width CV 13.5 % (11.6-14.6); RBC Distribution Width SD 46.9 fl (35.1-43.9); Red Blood Count 4.09 M/mm3 (4.2-5.4); White Blood Count 5.4 K/mm3 (4.4-11.0)
[2019-08-02 13:59] LABS: ALB/GLOB Ratio 0.5 RATIO (0.9-2.4); AST(SGOT) 55 U/L (15-37); Alanine Aminotransfer ALT/SGPT 23 U/L (13-56); Albumin, Serum 2.5 g/dL (3.2-5.0); Alkaline Phosphatase 208 U/L (45-117); Anion Gap 8 (5-15); BUN 18 mg/dL (7-18); BUN/Creat Ratio 17.5 RATIO (10-20); Calcium,Total 8.6 mg/dL (8.5-10.1); Chloride 106 mmol/L (98-107); Creatinine, Serum 1.03 mg/dL (0.55-1.02); EST Glomerular Filtration Rate 58 mL/min (>60); Est Glom Filt Rate - Afr Amer 70 mL/min (>60); Globulin 4.9 g/dL (2.2-4.2); Glucose 131 mg/dL (74-106); Potassium 3.4 mmol/L (3.5-5.1); Protein, Total 7.4 g/dL (6.4-8.2); Sodium Level 139 mmol/L (136-145)
[2019-08-02 14:06] LABS: Vitamin D,25 Hydroxy 20.7 ng/mL (29.95-100.01)
== END ==
LOC: LAB.FUTURE 12:53 → LAB 12:54
PROVIDERS: Family Provider Family Medicine Geriatric Medicine; PCP Family Medicine Geriatric Medicine
DX: E55.9 Vitamin D deficiency, unspecified (principal); Z79.899 Other long term (current) drug therapy
CPT/HCPCS: 36415; 80053; 82306; 85027

== ENCOUNTER 2019-08-20 15:30 | Outpatient (RCR) | payer MEDICARE, MEDICAID, SELFPAY ==
--- NOTE | 2019-08-05 15:14 | HP.PTEVAL_ITS ---
Patient's Visit Information VITOR ALBERTO is a 59 year old F referred to Physical Therapy by Jose Angel Luke DPM with a diagnosis of L ankle fusion. Date of Evaluation: 08/05/19 Physical Therapist: Cuba Mills, PT, ATC - Visit Plan Frequency: 2-3x /Week Duration: 4 Weeks Plan: L ankle stretching and strengthening, balance and proprio, PROM and mobs, bike, and HEP - Subjective Findings: Pt. had L ankle reconstruction on 10/29/19. Pt found out about neuropathy 10 years ago. Pt has numbness in L ankle, which also has subtalar fusion. Pt states she is not able to move L ankle . Pt. has chronic pain. At rest, pt states pain is 5/10. Pt states pain at worst is 8/10. No tingling in L ankle, but there is numbness. Pt stated she is able to feel light touch in L ankle. Pt sleeps on couch at home. Pt has woken up at night due to pain. Pt states she sleeps more during the day than at night. Pt reported her last fall was in December of 2018. Pt is able to perform morning routuine easily in wheelchair. Pt is able to stand on her own. - Pain L foot Pain Intensity (Out of 10): 5 Pain Intensity Range: 8 - Objective Neuro: B LE sensation is WNL to light touch. ROM: R anikle DF= 5, PF= 55 degrees. L ankle DF= -10, PF= 15 degrees. MMT: R ankle DF 4-/5. All other R ankle 5/5 throughout. L ankle NT secondary to lack ROM. Transfers: sit to stand, stand to sit, supine to sit all I. Gait: Pt is able to ambulate with WW and PWBing with CGA x 1 for 340' until having to sit and rest - Goals Goal 1:: Decrease L ankle pain x 50% to aid with sleep Goal Time Frame: 4-6 Weeks Goal 2:: Increase L ankle DF ROM x 10-15 degrees to aid with restoring a more normal gait pattern Goal Time Frame: 4-6 Weeks Goal 3:: Increase L ankle strength x 1 grade to aid with stair negotiation. Goal Time Frame: 4-6 Weeks Goal 4:: I with HEP Goal Time Frame: 4-6 Weeks - Rehabilitation Potential Physical Therapy Diagnosis: L ankle pain, limited ROM, and L ankle weakness secondary to L ankle fusion Rehabilitation Potential: Good - Anticipated Interventions Patient/Client Instruction: Educate patient on: Condition, Plan of Care For the Purpose of:: To improve self management Therapeutic Exercise to Include: Strength training, Endurance training, Balance training, Flexibilty training, Gait and locomotor training, Passive ROM, Active ROM For the Purpose of:: To decrease pain, To increase ROM, To improve muscle performance and motor function Thank you for the opportunity to evaluate your patient. For Medicare and Medicare HMO plans, please review the plan of care and approve it. It will need to be FAXED BACK to us at [phone] for Medicare purposes. For Medicare only, by signing this I certify the plan of care. Please let me know if there are questions or concerns regarding this plan of care. Physician Signature: Date:___
--- NOTE | 2019-10-16 13:32 | HP.PT.NRP ---
HP - Discharge Summary (1) - Patient Information IVTOR ALBERTO was seen in my office for initial evaluation on 08/05/19. The following Plan of Care was established for this patient: Initial Frequency: 2-3x /Week Initial Duration: 4 Weeks - Anticipated Interventions Patient/Client Instruction: Educate patient on: Condition, Plan of Care For the Purpose of:: To improve self management Therapeutic Exercise to Include: Strength training, Endurance training, Balance training, Flexibilty training, Gait and locomotor training, Passive ROM, Active ROM For the Purpose of:: To decrease pain, To increase ROM, To improve muscle performance and motor function This patient was last seen in our office . Pertinent comments regarding their Physical therapy will appear below: Pt was treated for 4 PT visits for L ankle pain through the date of 08/20/19. Pt has not returned through todays date and is therefore discontinued at this time. At this point I will be discontinuing this patient from physical therapy. I would be happy to see this patient again in the future if found appropriate by the physician. Thank you! [place], PT, ATC
== END 2019-08-20 19:00 | disposition home or self-care (01) ==
LOC: PT 15:30
PROVIDERS: Family Provider Family Medicine Geriatric Medicine; PCP Family Medicine Geriatric Medicine; Referring Provider Podiatrist; Visit Provider Podiatrist
DX: Z98.890 Other specified postprocedural states (principal)
CPT/HCPCS: 97110; 97116; 97140; 97161

== ENCOUNTER 2019-08-23 21:54 | Emergency (ER) | payer MEDICARE, MEDICAID, SELFPAY ==
[2019-08-23 21:55] VITALS: BP 174/78; PULSE 86; RESP 17; TEMP 36.9; O2SAT 93; BMI 32.5
--- NOTE | 2019-08-23 22:24 | EKG12_ITS ---
Test Reason : ABDOMINAL PAIN Blood Pressure : / mmHG Vent. Rate : 080 BPM Atrial Rate : 080 BPM P-R Int : 178 ms QRS Dur : 090 ms QT Int : 370 ms P-R-T Axes : 039 -42 060 degrees QTc Int : 426 ms Normal sinus rhythm Left axis deviation Moderate voltage criteria for LVH, may be normal variant Cannot rule out Septal infarct , age undetermined Possible Lateral infarct , age undetermined Abnormal ECG Confirmed by JOLLY ROBERTS, YASMANY ([id number]), non linear editor ELIZA LANDON ([id number]) on 08/27/2019 10:46:28 AM Referred By: JASON Confirmed By:YASMANY AZEVEDO MD
[2019-08-23 22:53] LABS: Absolute Lymphocyte Count 1.43 X10^3/uL (0.83-4.51); Absolute Neutrophil Count 2.4 X10^3/uL (2.0-7.7); Basophil# 0.06 X10^3/uL; Basophil% 1.3 % (0-1); Eosinophil# 0.28 X10^3/uL; Eosinophils% 6.2 % (0-5); Hematocrit 40.8 % (37-47); Hemoglobin 13.4 g/dL (12.0-15.0); Lymphocyte # 1.43 X10^3/ul (4.0); Lymphocyte % 31.4 % (19-41); Mean Corp Hgb Conc 32.8 g/dL (32-36); Mean Corpuscular Hgb 31.5 pg (27.0-32.0); Mean Corpuscular Volume 95.8 fL (81-99); Mean Platelet Vol. 9.3 fl (6.2-12.0); Monocyte# 0.36 X10^3/uL; Monocyte% 7.9 % (0-10); NRBC Flagged by Analyzer 0 % (0-5); Neutrophil # 2.41 X10^3/uL (2.7-7.7); Platelet Count 164 K/mm3 (150-450); RBC Distribution Width CV 13.6 % (11.6-14.6); RBC Distribution Width SD 48.4 fl (35.1-43.9); Red Blood Count 4.26 M/mm3 (4.2-5.4); White Blood Count 4.6 K/mm3 (4.4-11.0)
[2019-08-23 23:09] LABS: AST(SGOT) 48 U/L (15-37); Alanine Aminotransfer ALT/SGPT 22 U/L (13-56); Albumin, Serum 2.4 g/dL (3.2-5.0); Alkaline Phosphatase 212 U/L (45-117); Anion Gap 5 (5-15); BUN 21 mg/dL (7-18); BUN/Creat Ratio 18.6 RATIO (10-20); Bilirubin, Direct 0.78 mg/dL (0.00-0.30); Calcium,Total 8.4 mg/dL (8.5-10.1); Chloride 104 mmol/L (98-107); Creatinine, Serum 1.13 mg/dL (0.55-1.02); EST Glomerular Filtration Rate 52 mL/min (>60); Est Glom Filt Rate - Afr Amer 63 mL/min (>60); Estimated Creatinine Clearance 45.15 ml/min; Globulin 4.8 g/dL (2.2-4.2); Glucose 155 mg/dL (74-106); Lipase 139 U/L (73-393); Potassium 3.2 mmol/L (3.5-5.1); Protein, Total 7.2 g/dL (6.4-8.2); Sodium Level 138 mmol/L (136-145)
--- NOTE | 2019-08-23 23:27 | ED.DCSUM_ITS ---
History of Present Illness Chief Complaint: Abd Pain Detail of Chief Complaint: Abdominal pain and distention Informant: Patient Onset: Weeks - 2 weeks Context: Gradual Onset Current Severity: Moderate Maximum Severity: Moderate Narrative: Patient presents with left upper quadrant abdominal pain for the past 2 weeks. She states her abdomen is becoming more distended. She states her weight has gone up 20 pounds in the last month. She is currently on palliative care out of [place]. This is secondary to prior foot and ankle surgery. She does report a history of elevated liver enzymes but is never been told that she had cirrhosis or liver failure. She has not had fever or chills. She denies pain rating up into her chest. 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 Smoking Status: Unknown if ever smoked - Family History Maternal Family History: Family History (Last Reviewed 01/06/19 @ 21:40 by Marta Santos) Mother CAD (coronary artery disease) Father Arthritis Brother Arthritis Family History: Reports: Heart Disease, - - mother at age 67 bof heart problems. Paternal Family History: Family History (Last Reviewed 01/06/19 @ 21:40 by Marta Santos) Mother CAD (coronary artery disease) Father Arthritis Brother Arthritis Family History: Reports: Heart Disease Review of Systems General: Denies: Chills, Fever Eyes: Denies: Visual changes - bilaterally ENT: Denies: Bilateral ear pain Cardiovascular: Denies: Chest pain Respiratory: Denies: Dyspnea, Cough Gastrointestinal: Reports: Abdominal pain, Nausea. Denies: Vomiting Musculoskeletal: Reports: Extremity Pain - Chronic ankle pain Skin: Denies: Rash Neurological: Denies: Headache Physical Exam Vital Signs/Narrative: Vital Signs Temp Pulse Resp BP Pulse Ox 08/23/19 21:55 98.5 F 86 17 174/78 H 93 Inital Vital Signs reviewed: Yes General: Well nourished, Well developed Head: Normocephalic ENT: Moist mucous membranes Neck: Supple Cardiovascular: Regular rate, Regular rhythm Respiratory: No distress, CTA bilaterally Abdomen: Soft, Hypoactive bowel sounds, - - Distended abdomen. Negative for: Nondistended Back: Negative for: Nontender Extremities: Tenderness - Call tenderness Skin: Normal color Neurological: Alert, Oriented x3 Psychological: Normal affect Diagnostic/Tx/Re-eval Impressions Abdomen/Pelvis CT 08/24/19 22:26 IMPRESSION: Development of significant hepatic cirrhosis, portal hypertension, mild splenomegaly, upper abdominal varices with new large diffuse abdominal ascites when compared to prior CT exam Bilateral linear lower lobe subsegmental atelectasis, mild groundglass infiltrate within the lingula suspicious for alveolitis Stable likely benign subcentimeter pulmonary nodules within the right middle lobe and lingula Mild to moderate atherosclerotic plaques within the abdominal aorta, moderate to severe stenoses within the common and external iliac arteries Moderate distention of the bladder New diffuse subcutaneous edema, anasarca Mild lumbar spine levoscoliosis Electronically Signed: Joey Knox, at 1:32 EDT Tel , Service support , 08/24/19 22:26 Abdomen/Pelvis WITH Contrast [CT] Stat Laboratory Results 08/23/19 08/23/19 08/23/19 22:45 22:45 23:25 WBC 4.6 RBC 4.26 Hgb 13.4 Hct 40.8 MCV 95.8 MCH 31.5 MCHC 32.8 RDW Std Deviation 48.4 H RDW Coeff of Bonnie 13.6 Plt Count 164 MPV 9.3 Immature Gran % (Auto) 0.200 Neut % (Auto) 53.0 Lymph % (Auto) 31.4 [place] % (Auto) 7.9 Eos % (Auto) 6.2 H Baso % (Auto) 1.3 H Absolute Neuts (auto) 2.4 Absolute Lymphs (auto) 1.43 Nucleated RBC % 0 Sodium 138 Potassium 3.2 L Chloride 104 Carbon Dioxide 29.0 Anion Gap 5 BUN 21 H Creatinine 1.13 H Estim Creat Clear Calc 45.15 Est GFR (MDRD) Af Amer 63 Est GFR (MDRD) Non-Af 52 L BUN/Creatinine Ratio 18.6 Glucose 155 H Calcium 8.4 L Total Bilirubin 1.30 H Direct Bilirubin 0.78 H AST 48 H ALT 22 Alkaline Phosphatase 212 H Total Protein 7.2 Albumin 2.4 L Globulin 4.8 H Lipase 139 Urine Color Yellow Urine Clarity Sl Cldy Urine pH 6.5 Ur Specific Carpenter 1.010 Urine Protein 100 H Urine Glucose (UA) Normal Urine Ketones Negative Urine Occult Blood 50 H Urine Nitrite Negative Urine Bilirubin Negative Urine Urobilinogen 4 H Ur Leukocyte Esterase Negative Urine RBC 0-5 SEEN Urine WBC 0-5 SEEN Ur Squamous Epith Cells 5-10 SEEN Urine Bacteria 1+ Urine Mucus 0 SEEN - EKG Initial EKG Interpretation: Sinus Rhythm - Sinus at 80 with no acute ischemia. - Medical Decision Making Test results are discussed with the patient. She asked for something for anxiety and was given 0.5 mg of Ativan. Test results do indicate significant ascites. She will likely need a paracentesis, but does not need to be performed emergently in the hospital. I spoke with the patient's primary care physician, Dr. Rosenthal. He will see the patient on Monday. Patient asked me to check with him about her insulin as she states she has been off of it for the last week after the pharmacy would not refill it because they received a call from her doctor. Patient states her blood sugars been running in the 150s to 160s. She is [address] Rosenthal advised if that is what her values are running at leave it alone until he sees her on Monday and he will address it at that time. ED Disposition - Plan for ED Patient: Disposition: Home or Assisted Living Diagnosis: Ascites Instructions: Ascites Prescriptions: Lorazepam [Ativan] 0.5 mg PO TID PRN #14 tablet PRN Reason: Anxiety Referrals: Froilan Rosenthal Chi, MD [Primary Care Provider] - 2 Days
[2019-08-23 23:36] LABS: Mucous, Urine 0 SEEN /hpf (<or=2+)
[2019-08-23 23:42] LABS: Color, Urine Yellow (Yellow); Glucose, Dipstick Normal (Normal); Ketone-Dipstick Negative (Negative); Leukocyte Esterase-Dipstick Negative /ul (Negative); Nitrite-Dipstick Negative (Negative); Occult Blood-Urine 50 /ul (Negative); Protein-Dipstick 100 mg/dl (Negative); Urine Bilirubin Dipstick Negative (Negative); Urine Clarity Sl Cldy (Clear); Urine Urobilinogen 4 mg/dl (Normal); Urine pH 6.5 (5.0 - 8.0)
[2019-08-23 23:53] LABS: Red Blood Cells-Urine 0-5 SEEN /hpf (0-5); White Blood Cells 0-5 SEEN /hpf (0-5)
[2019-08-23 23:54] LABS: Bacteria 1+ /hpf (None Seen); Squamous Epithelial Cells - UA 5-10 SEEN /hpf (5-10)
[2019-08-24] VITALS: BP 168/72; PULSE 80; RESP 16; O2SAT 97
[2019-08-24] MEDS: LORazepam 0.5 MG Tablet PO (01:26)
[2019-08-24 02:15] VITALS: RESP 16
--- NOTE | 2019-08-24 22:26 | CT_ITS ---
STUDY: CT ABDOMEN AND PELVIS WITH CONTRAST REASON FOR EXAM: Female, 59 years old. Left upper quadrant abdominal pain, weight gain RADIATION DOSAGE (If Supplied By Facility): CTDIvol = ( 21.49 ) mGy, DLP = ( 1266.51 ) mGycm TECHNIQUE: Transaxial images were obtained from the dome of the diaphragm to the symphysis pubis without oral contrast. Oral and amp; IV Gastrografin and amp; 100mL Isovue-300 100ML was administered. Sagittal and coronal images were reconstructed. Individualized dose optimization techniques were used for this CT. COMPARISON: CT abdomen and pelvis 07/21/2016. FINDINGS: There is linear bilateral lower lobe subsegmental atelectasis. There is a mild groundglass infiltrate within the lingula.. Stables 5 mm right lower lobe pleural-based pulmonary nodule and stable 5 mm linear density within the right middle lobe. The visualized portions of the heart are within normal limits. There is new significant nodularity to the surface of the liver. The liver is significantly smaller in size when compared to prior exam. There is new upper abdominal varices. There is diffuse large abdominal ascites. The gallbladder is not visualized. There is no intrahepatic or extrahepatic biliary dilatation.. There is mild splenomegaly, spleen is larger in size measuring 14.8 cm in superior-inferior diameter. Normal pancreas. Normal bilateral adrenal glands. Normal right kidney. Normal left kidney. Normal visualized stomach. Normal small intestine. Normal colon. The appendix is visualized and appears normal. There is mild to moderate atherosclerotic plaques within the abdominal aorta. There are moderate to severe stenoses within the common iliac and external iliac arteries. Normal inferior vena cava. Normal retroperitoneum. There is moderate distention of the bladder.. There is mild lumbar spine dextroscoliosis. There is new diffuse subcutaneous edema. CT/Abdomen/Pelvis WITH Contrast IMPRESSION: Development of significant hepatic cirrhosis, portal hypertension, mild splenomegaly, upper abdominal varices with new large diffuse abdominal ascites when compared to prior CT exam Bilateral linear lower lobe subsegmental atelectasis, mild groundglass infiltrate within the lingula suspicious for alveolitis Stable likely benign subcentimeter pulmonary nodules within the right middle lobe and lingula Mild to moderate atherosclerotic plaques within the abdominal aorta, moderate to severe stenoses within the common and external iliac arteries Moderate distention of the bladder New diffuse subcutaneous edema, anasarca Mild lumbar spine levoscoliosis Electronically Signed: Joey Knox, at 1:32 EDT Tel , Service support ,
== END 2019-08-24 02:16 | disposition home or self-care (01) ==
PROVIDERS: Emergency Provider Emergency Medicine; Family Provider Family Medicine Geriatric Medicine; PCP Family Medicine Geriatric Medicine
DX: R18.8 Other ascites (principal)
CPT/HCPCS: 74177; 80048; 80076; 81001; 83690; 85025; 93005; 99285; Q9967; A4216

== ENCOUNTER → 2019-09-03 12:12 | Outpatient (CLI) | payer MEDICARE, MEDICAID, SELFPAY ==
[2019-08-23 21:55] VITALS: BMI 32.5
--- NOTE | 2019-09-03 12:35 | US_ITS ---
PROCEDURE: Ultrasound guided paracentesis. DATE OF EXAMINATION: September 03, 2019. INDICATION: Female, 59 years old. Ascites. PHYSICIAN: Jakob Hirsch M.D. TECHNIQUE: The risks, benefits, and alternatives to the procedure were explained to the patient. The specific risks of bleeding, infection, and damage to bowel were detailed and accepted. Witnessed informed consent was obtained. The abdomen was ultrasonographically surveyed. An appropriate pocket of fluid was identified at the left lower quadrant. The skin were cleaned and prepped in the usual sterile fashion. Using ultrasound guidance, the peritoneal cavity was accessed with a 5-Indonesian paracentesis needle/catheter system. The trocar was removed. A total of 7950 ml of zafar-colored fluid were removed from the peritoneal cavity. The catheter was removed and a sterile dressing was applied. The procedure was well tolerated. US/Paracentesis with US IMPRESSION: Ultrasound guided paracentesis. Electronically Signed: Jakob Hirsch, at 14:37 EST , Service support ,
[2019-09-03 13:27] LABS: Absolute Lymphocyte Count 2.02 X10^3/uL (0.83-4.51); Basophil# 0.05 X10^3/uL; Basophil% 0.9 % (0-1); Eosinophil# 0.28 X10^3/uL; Eosinophils% 4.8 % (0-5); Hematocrit 41.5 % (37-47); Hemoglobin 13.9 g/dL (12.0-15.0); Lymphocyte # 2.02 X10^3/ul (4.0); Lymphocyte % 34.6 % (19-41); Mean Corp Hgb Conc 33.5 g/dL (32-36); Mean Corpuscular Hgb 31.7 pg (27.0-32.0); Mean Corpuscular Volume 94.5 fL (81-99); Mean Platelet Vol. 10.5 fl (6.2-12.0); Monocyte# 0.44 X10^3/uL; Monocyte% 7.5 % (0-10); NRBC Flagged by Analyzer 0 % (0-5); Neutrophil # 3.02 X10^3/uL (2.7-7.7); Neutrophil % 51.9 % (47-70); Platelet Count 197 K/mm3 (150-450); RBC Distribution Width CV 13.8 % (11.6-14.6); RBC Distribution Width SD 48.4 fl (35.1-43.9); Red Blood Count 4.39 M/mm3 (4.2-5.4); White Blood Count 5.8 K/mm3 (4.4-11.0)
[2019-09-03 13:27] LABS: International Normalized Ratio 1.2
[2019-09-03 13:28] LABS: Partial Thromboplast Time 36.1 Seconds (24.1-36.2)
[2019-09-03 13:45] VITALS: BP 133/62; BP 133/73; BP 139/67; PULSE 76; PULSE 77; PULSE 78; RESP 16; O2SAT 100; O2SAT 99
[2019-09-03 13:48] LABS: Vitamin D,25 Hydroxy 12.1 ng/mL (29.95-100.01)
[2019-09-03 13:52] LABS: ALB/GLOB Ratio 0.5 RATIO (0.9-2.4); AST(SGOT) 46 U/L (15-37); Alanine Aminotransfer ALT/SGPT 20 U/L (13-56); Albumin, Serum 2.7 g/dL (3.2-5.0); Alkaline Phosphatase 205 U/L (45-117); Anion Gap 7 (5-15); BUN 19 mg/dL (7-18); BUN/Creat Ratio 15.8 RATIO (10-20); Calcium,Total 8.8 mg/dL (8.5-10.1); Chloride 102 mmol/L (98-107); EST Glomerular Filtration Rate 48 mL/min (>60); Est Glom Filt Rate - Afr Amer 59 mL/min (>60); Globulin 5.1 g/dL (2.2-4.2); Glucose 79 mg/dL (74-106); Potassium 3.4 mmol/L (3.5-5.1); Protein, Total 7.8 g/dL (6.4-8.2); Sodium Level 137 mmol/L (136-145); Thyroid Stim Hormone (TSH) 4.43 uIU/mL (0.358-3.74)
== END ==
PROVIDERS: Family Provider Family Medicine Geriatric Medicine; PCP Family Medicine Geriatric Medicine; Referring Provider Family Medicine Geriatric Medicine; Visit Provider Family Medicine Geriatric Medicine
DX: R18.8 Other ascites (principal); K74.69 Other cirrhosis of liver; E11.9 Type 2 diabetes mellitus without complications; E55.9 Vitamin D deficiency, unspecified; I10 Essential (primary) hypertension
CPT/HCPCS: 36415; 49083; 80053; 82306; 84443; 85025; 85610; 85730

== ENCOUNTER → 2019-09-04 12:57 | Outpatient (CLI) | payer MEDICARE, MEDICAID, SELFPAY ==
[2019-08-23 21:55] VITALS: BMI 32.5
--- NOTE | 2019-09-04 14:00 | RAD_ITS ---
STUDY: X-RAY - LUMBAR SPINE REASON FOR EXAM: Female, 59 years old. Back pain TECHNIQUE: 3 view(s) of the lumbar spine were obtained. COMPARISON: Prior lumbar spine radiographs of January 08, 2016 FINDINGS: Normal lumbar lordosis. Slight dextrocurvature of the lumbar spine. There is a normal alignment of the vertebrae. There is generalized demineralization of the vertebral bodies. Mild degenerative disc narrowing at L1-L2. Minimal disc narrowing and other lumbar levels. Heavy atherosclerotic calcification of the abdominal aorta and iliac vessels. RAD/Lumbar Spine 2 or 3 Views IMPRESSION: Slight dextrocurvature of the lumbar spine with otherwise normal alignment. Demineralized osseous structures without fracture, osteolytic or blastic bone lesion. Mild/minimal degenerative disc changes. Atherosclerotic vascular calcifications. Electronically Signed: Lennie Karimi MD at 17:48 EST , Service support ,
[2019-09-04 15:08] LABS: Amphetamine Urine VISTA NEGATIVE (<1000 ng/mL); Barbiturate Urine VISTA NEGATIVE (< 200 ng/mL); Benzodiazepine Urine VISTA NEGATIVE (< 200 ng/mL); Cocaine Urine VISTA NEGATIVE (< 300 ng/mL); Ecstacy Urine VISTA NEGATIVE (< 500 ng/mL); Methadone Urine VISTA NEGATIVE (< 300 ng/mL); PCP Urine VISTA NEGATIVE (< 25 ng/mL); THC Urine VISTA NEGATIVE (< 50 ng/mL); Vista UDS pH Range 5
== END ==
PROVIDERS: Family Provider Family Medicine Geriatric Medicine; PCP Family Medicine Geriatric Medicine; Referring Provider Anesthesiology Pain Medicine; Visit Provider Anesthesiology Pain Medicine
DX: F11.20 Opioid dependence, uncomplicated (principal)
CPT/HCPCS: 72100; 80307

== ENCOUNTER → 2019-09-05 08:08 | Outpatient (CLI) | payer MEDICARE, MEDICAID, SELFPAY ==
[2019-08-23 21:55] VITALS: BMI 32.5
[2019-09-05] VITALS (12 sets, daily range): BP systolic 93–135; BP diastolic 38–76; PULSE 70–84; RESP 14–18; TEMP 37; O2SAT 94–99
--- NOTE | 2019-09-05 | LIVB_PTH ---
PATIENT: VITOR ALBERTO LOC: CT U#:[id number] AGE/SX: 65/F ROOM: RE09/05/[address]: Dr. Froilan Rosenthal MD : 1960 BED: DIS: SPEC #: [id number] RECD: 09/05/19 09:52 STATUS: BAHMAN GEETA #: [id number] LINNEA: 09/05/19 00:[address]: Froilan Rosenthal Chi DEPT: SURGICAL PATHOLOGY RECD BY: Wayne Mcleod Tissues: Liver, NOS Procedures: PAS with Diastase (control) Elastin Stain (control) Trichrome (control) Special Stain Group II PAS Stain (control) Surgery Specimen Level V Iron Stain (control) HEADER OPERATION: CT-guided liver biopsy PRE-OP DIAGNOSIS: Cirrhosis TISSUE SUBMITTED: Liver 18 gauge core x3 MICROSCOPIC DIAGNOSIS Liver, CT-guided core biopsy: Cirrhosis. See comment. AM:margarita 09/06/19 COMMENT Iron stain with matched control does not reveal intraparenchymal deposition of iron. Retuculin stain with matched control reveals a normal hepatic architecture. PAS stain with and without diastase does not reveal accumulation of abnormal proteins. Trichrome stain with matched control reveals broad band fibrosis consistent with cirrhosis. The inflammatory process ranges form limiting plate necrosis to areas of bridging plate necrosis (Grade 4/4, modified Knodell scoring system). Clinical correlation is suggested. Case has been reviewed in consultation with Dr. Lua who concurs with the above diagnosis. IDC:CARRIE MICROSCOPIC DESCRIPTION Slides are reviewed. GROSS DESCRIPTION Received in fixative is one container labeled with the patient's name and designated liver. The specimen consists of three elongated fragments of porter soft tissue each measuring 1.5 cm in length and 0.1 cm in diameter. The specimen is totally submitted in one cassette. / CARRIE:margarita 09/05/19 TC:3 CPT: 49733, 40842 x5
--- NOTE | 2019-09-05 08:11 | CT_ITS ---
PROCEDURE: CT DIRECTED CORE LIVER BIOPSY INDICATION: Female, 59 years old. Cirrhosis. PHYSICIAN: Dr. Joycelyn Louise CONSENT: Written informed consent was obtained having explained the risks, benefits and alternatives in detail with the patient who accepted the risks and agreed to proceed. Laboratory review and clinical assessment was performed. CONSCIOUS SEDATION PROTOCOL: The Drugs used were: 2 mg Versed, IV., and 50 mcg Fentanyl, IV. The sedation time was: 9 minutes. Conscious sedation was started at 9:23 AM and terminated at 9:32 AM. The conscious sedation protocol was independently monitored. RADIATION DOSAGE (If Supplied By Facility): CTDIvol = ( 20 ) mGy, DLP = ( 374.75 ) mGycm Individualized dose optimization techniques were used for this CT. TECHNIQUE: Using CT image guidance with image documentation, a suitable location in the left lobe of the liver was identified. Using a left anterior approach, puncture of the liver was uneventful with an 18-gauge core needle system. 3 18-gauge core samples were obtained, and submitted in formalin to the pathologist for further assessment. Followup CT scan revealed no distinct sequelae. CT/Biopsy/Inj or Needle Placement IMPRESSION: 1. CT directed core needle biopsy of the liver, using CT image guidance with image documentation as described. 2. Conscious Sedation protocol utilized with independent monitoring. Electronically Signed: Jakob Hirsch, at 10:20 EST , Service support ,
[2019-09-05] MEDS: Midazolam 2 MG/2 ML Syringe IV ×2 (09:23→09:29)
[2019-09-05] MEDS: fentaNYL 100 MCG/2 ML Ampul IV ×2 (09:24→09:29)
== END ==
PROVIDERS: Family Provider Family Medicine Geriatric Medicine; PCP Family Medicine Geriatric Medicine; Referring Provider Family Medicine Geriatric Medicine; Visit Provider Family Medicine Geriatric Medicine
DX: K74.60 Unspecified cirrhosis of liver (principal); K76.6 Portal hypertension; I85.10 Secondary esophageal varices without bleeding; I73.9 Peripheral vascular disease, unspecified; R16.1 Splenomegaly, not elsewhere classified; R18.8 Other ascites; E11.9 Type 2 diabetes mellitus without complications; E78.5 Hyperlipidemia, unspecified; K21.9 Gastro-esophageal reflux disease without esophagitis; F33.0 Major depressive disorder, recurrent, mild; F17.200 Nicotine dependence, unspecified, uncomplicated; Z79.4 Long term (current) use of insulin; Z79.891 Long term (current) use of opiate analgesic; Z79.899 Other long term (current) drug therapy
CPT/HCPCS: 47000; 77012; 88307; 88313; 99156; J7040; A4216

== ENCOUNTER 2019-09-26 20:23 | Emergency (ER) | payer MEDICARE, MEDICAID, SELFPAY ==
[2019-09-26 20:23] VITALS: BP 200/72
[2019-09-26 20:24] VITALS: PULSE 89; RESP 18; TEMP 36.8; O2SAT 99; BMI 32.0
[2019-09-26 21:09] LABS: Absolute Lymphocyte Count 1.81 X10^3/uL (0.83-4.51); Absolute Neutrophil Count 3.4 X10^3/uL (2.0-7.7); Basophil# 0.05 X10^3/uL; Basophil% 0.8 % (0-1); Eosinophil# 0.16 X10^3/uL; Eosinophils% 2.7 % (0-5); Hematocrit 41.8 % (37-47); Lymphocyte # 1.81 X10^3/ul (4.0); Lymphocyte % 30.6 % (19-41); Mean Corp Hgb Conc 33.5 g/dL (32-36); Mean Corpuscular Volume 95.7 fL (81-99); Mean Platelet Vol. 10.1 fl (6.2-12.0); Monocyte# 0.47 X10^3/uL; Monocyte% 7.9 % (0-10); NRBC Flagged by Analyzer 0 % (0-5); Neutrophil % 57.5 % (47-70); Platelet Count 181 K/mm3 (150-450); RBC Distribution Width CV 13.6 % (11.6-14.6); RBC Distribution Width SD 48.4 fl (35.1-43.9); Red Blood Count 4.37 M/mm3 (4.2-5.4); White Blood Count 5.9 K/mm3 (4.4-11.0)
[2019-09-26 21:24] LABS: AST(SGOT) 46 U/L (15-37); Alanine Aminotransfer ALT/SGPT 29 U/L (13-56); Albumin, Serum 2.4 g/dL (3.2-5.0); Alkaline Phosphatase 226 U/L (45-117); Anion Gap 8 (5-15); BUN 29 mg/dL (7-18); BUN/Creat Ratio 20.1 RATIO (10-20); Bilirubin, Direct 0.93 mg/dL (0.00-0.30); Calcium,Total 8.2 mg/dL (8.5-10.1); Chloride 106 mmol/L (98-107); Creatinine, Serum 1.44 mg/dL (0.55-1.02); EST Glomerular Filtration Rate 39 mL/min (>60); Est Glom Filt Rate - Afr Amer 48 mL/min (>60); Estimated Creatinine Clearance 35.43 ml/min; Globulin 4.6 g/dL (2.2-4.2); Glucose 278 mg/dL (74-106); Potassium 3.8 mmol/L (3.5-5.1); Sodium Level 138 mmol/L (136-145)
[2019-09-26 21:38] LABS: International Normalized Ratio 1.2; Prothrombin Time (Protime)PT. 14.9 SECONDS (11.7-14.9)
[2019-09-26 21:39] LABS: Partial Thromboplast Time 34.7 Seconds (24.1-36.2)
[2019-09-26 22:29] VITALS: BP 155/84; PULSE 81; RESP 15; O2SAT 97
--- NOTE | 2019-09-26 23:12 | ED.VISSUMM ---
- ER Visit Summary Date of Service: 09/26/19 Chief Complaint: Abdominal pain History of Present Illness: The patient is a 59 F who tells me she has a history of liver cirrhosis. She sees Dr. Rosenthal and is in pain management. She states that she had a paracentesis done at the beginning of the month and they removed over 7 L of fluid. She states that now the swelling in her abdomen has returned and is very painful and she is unable to sleep. She points to her left flank as the area that hurts her and this is been a source of continued pain. She tells me that this is where her liver is that. She notes some nausea she also notes a lot of anxiety as well as depression. She tells me that she is also enrolled in palliative care. She has a appointment on Monday for paracentesis but does not think she can make it. Physical Examination: Afebrile noted hypertension 200/72 later in the ED course her blood pressure was substantially down 155/84 Gen: Well-nourished well-developed Head: Normocephalic atraumatic Eyes: Perrl EOMI ENT: TMs clear no rhinorrhea moist mucous membranes Neck: Supple no lymphadenopathy no JVD nontender CVS: Regular rate rhythm 2 out of 6 systolic murmur Respiratory: No distress clear to auscultation bilaterally chest nontender Abdomen: There is tense ascites no caput medusa nondistended normal bowel sounds no masses Back: Nontender Extremity: Nontender no edema Skin: Normal color no rash Neuro: alert orientated ?3 CN II-XII intact normal strength sensation reflexes gait cerebellar Psych: Appears depressed. No suicidal homicidal ideation Test Results: CBC was normal coags were normal. Emergency Department Course and Treatment: Patient provided informed consent for therapeutic paracentesis. This was performed under ultrasound guidance and catheter was placed in the right lower quadrant using a Z track without any difficulty. 6500 cc of yellow fluid was removed. Patient asked for Motrin and she was given this. She will be discharged home to follow-up with her doctors. Impression: 1. Acute abdominal pain 2. Ascites 3. Therapeutic paracentesis by physician This note was generated with [employer] dictation software. It may contain incorrect words, spelling, and punctuation that were not noted in review of the chart prior to signing ED Disposition - Plan for ED Patient: Disposition: Home or Assisted Living Instructions: Paracentesis, Ascites Referrals: Froilan Rosenthal Chi, MD [Primary Care Provider] - As soon as possible
[2019-09-26] MEDS: Ibuprofen 400 MG Tablet 800 MG PO (23:27)
== END 2019-09-26 23:34 | disposition home or self-care (01) ==
PROVIDERS: Emergency Provider Emergency Medicine; Family Provider Family Medicine Geriatric Medicine; PCP Family Medicine Geriatric Medicine
DX: R18.8 Other ascites (principal); K74.60 Unspecified cirrhosis of liver; I10 Essential (primary) hypertension; E11.9 Type 2 diabetes mellitus without complications; F17.200 Nicotine dependence, unspecified, uncomplicated; Z79.4 Long term (current) use of insulin; Z79.899 Other long term (current) drug therapy
CPT/HCPCS: 49083; 80048; 80076; 85025; 85610; 85730; 99285; A4216

== ENCOUNTER 2019-09-28 14:11 | Inpatient (IN) | payer MEDICARE, MEDICAID, SELFPAY ==
[2019-09-28 14:12] VITALS: BP 142/62; PULSE 90; RESP 18; TEMP 36.6; O2SAT 96; BMI 29.2
--- NOTE | 2019-09-28 14:40 | CT_ITS ---
STUDY: CT ABDOMEN AND PELVIS WITH CONTRAST REASON FOR EXAM: Female, 59 years old. Abdominal pain RADIATION DOSAGE (If Supplied By Facility): CTDIvol = ( 19.26 ) mGy, DLP = ( 1129.79 ) mGycm TECHNIQUE: Transaxial images were obtained from the dome of the diaphragm to the symphysis pubis with oral contrast. IV/Oral Isovue 370 100 was administered. Sagittal and coronal images were reconstructed. Individualized dose optimization techniques were used for this CT. COMPARISON: 09/15/2019 FINDINGS: The visualized lung bases are unremarkable. The visualized portions of the heart are within normal limits. Sclerotic appearance of the liver; heterogeneous enhancement. There is non-visualization of the gallbladder, which may be secondary to either contraction or a prior cholecystectomy. Normal spleen. Normal pancreas. Moderate to large volume ascites fluid Normal bilateral adrenal glands. Normal right kidney. Normal left kidney. There is a small hiatal hernia. Normal small intestine. There is colonic wall thickening of the ascending colon. Remainder of the colon demonstrates chronic diverticulosis without evidence of acute diverticulitis. The appendix is visualized and appears normal. There is diffuse atherosclerotic calcification of the abdominal aorta, without a demonstrated aneurysm. Normal inferior vena cava. Normal retroperitoneum. Normal urinary bladder. Severe atrophy of the Normal abdominal wall. There are diffuse degenerative changes of the visualized lumbar spine. CT/Abdomen/Pelvis WITH Contrast IMPRESSION: Moderate to large volume ascites fluid however, there appears to be circumferential wall thickening and pericolonic fat stranding of the ascending colon suggesting colitis. Remainder of the colon appears within normal limits. Normal appendix Electronically Signed: Clyde Jones DO at 17:27 EST Tel , Service support ,
[2019-09-28 14:56] LABS: Absolute Lymphocyte Count 1.71 X10^3/uL (0.83-4.51); Absolute Neutrophil Count 4.1 X10^3/uL (2.0-7.7); Basophil# 0.06 X10^3/uL; Basophil% 0.9 % (0-1); Eosinophil# 0.16 X10^3/uL; Eosinophils% 2.4 % (0-5); Hemoglobin 14.3 g/dL (12.0-15.0); Lymphocyte # 1.71 X10^3/ul (4.0); Lymphocyte % 25.8 % (19-41); Mean Corpuscular Hgb 32.4 pg (27.0-32.0); Mean Platelet Vol. 9.5 fl (6.2-12.0); Monocyte# 0.54 X10^3/uL; Monocyte% 8.1 % (0-10); NRBC Flagged by Analyzer 0 % (0-5); Neutrophil # 4.13 X10^3/uL (2.7-7.7); Neutrophil % 62.2 % (47-70); Platelet Count 176 K/mm3 (150-450); RBC Distribution Width CV 13.7 % (11.6-14.6); RBC Distribution Width SD 48.2 fl (35.1-43.9); Red Blood Count 4.42 M/mm3 (4.2-5.4); White Blood Count 6.6 K/mm3 (4.4-11.0)
[2019-09-28] MEDS: proMETHazine 25 MG/ML Syringe 12.5 MG IV (14:56)
[2019-09-28] MEDS: HYDROmorphone 1 MG/ML Syringe IV (14:57)
[2019-09-28] MEDS: 0.9% Normal Saline 1,000 ML 125 ML IV (14:57)
[2019-09-28 15:02] VITALS: BP 138/52; PULSE 80; RESP 14; O2SAT 98
[2019-09-28 15:12] LABS: ALB/GLOB Ratio 0.5 RATIO (0.9-2.4); AST(SGOT) 47 U/L (15-37); Alanine Aminotransfer ALT/SGPT 28 U/L (13-56); Albumin, Serum 2.2 g/dL (3.2-5.0); Alkaline Phosphatase 194 U/L (45-117); Anion Gap 9 (5-15); BUN 34 mg/dL (7-18); Calcium,Total 8.1 mg/dL (8.5-10.1); Chloride 107 mmol/L (98-107); Creatinine, Serum 1.26 mg/dL (0.55-1.02); EST Glomerular Filtration Rate 46 mL/min (>60); Est Glom Filt Rate - Afr Amer 55 mL/min (>60); Estimated Creatinine Clearance 40.49 ml/min; Globulin 4.1 g/dL (2.2-4.2); Glucose 215 mg/dL (74-106); Potassium 3.7 mmol/L (3.5-5.1); Protein, Total 6.3 g/dL (6.4-8.2); Sodium Level 139 mmol/L (136-145)
[2019-09-28 15:22] LABS: Lactic Acid 1.2 mmol/L (0.4-2.0)
--- NOTE | 2019-09-28 16:44 | ED.RN ---
ATTEMPT MADE TO COLLECT URINE. NO SUCCESS. DR INFORMED. Jose David DAVIS, RN [phone]
[2019-09-28 17:38] LABS: Mucous, Urine 0 SEEN /hpf (<or=2+); White Blood Cells 0 SEEN /hpf (0-5)
[2019-09-28 17:39] LABS: Color, Urine Yellow (Yellow); Glucose, Dipstick Normal (Normal); Ketone-Dipstick Negative (Negative); Leukocyte Esterase-Dipstick Negative /ul (Negative); Nitrite-Dipstick Negative (Negative); Occult Blood-Urine 10 /ul (Negative); Protein-Dipstick 30 mg/dl (Negative); Urine Bilirubin Dipstick Negative (Negative); Urine Clarity Sl. Cloudy (Clear); Urine Urobilinogen 8 mg/dl (Normal)
[2019-09-28 17:52] LABS: Bacteria 1+ /hpf (None Seen); Red Blood Cells-Urine 0-5 SEEN /hpf (0-5); Squamous Epithelial Cells - UA 10-25 SEEN /hpf (5-10)
[2019-09-28 17:53] VITALS: BP 106/53; PULSE 77; RESP 16; O2SAT 97
--- NOTE | 2019-09-28 18:02 | ED.DCSUM_ITS ---
- ER Visit Summary Date of Service: 09/28/19 Chief Complaint: [Abdominal pain] History of Present Illness: The patient is a 59 F [presents to the emergency department with complaint of abdominal pain that started 3 weeks ago. Patient rates her pain currently as a 9 out of 10. Patient complains of some nausea and some vomiting since 4:30 AM. Denies urinary symptoms. Patient states that she was in the emergency department 2 days ago and had a paracentesis and they took off 7 L of fluid. Patient states that when she is vomited patient had a few blood streaks noted in the vomit. She denies any fevers. Patient apparently is in palliative care and has history of diabetes, hypertension, high cholesterol, strokes of the liver, anxiety, depression.] Physical Examination: [HEENT-PERRLA, EOMI. Cranial nerves II through XII grossly intact. TMs clear. Mucous membranes moist. No adenopathy. Cardiovascular-regular rate and rhythm without murmur or ectopy Lungs-clear to auscultation, chest wall stable without crepitus or subcu emphysema Abdomen-normoactive bowel sounds.. Patient has tenderness palpation over the right lateral abdomen as well as the left lateral abdomen. Abdomen slightly distended. There is no rebound, rigidity, pedal signs. Extremities-intact ?4, normal range of motion, normal pulses, atraumatic] Test Results: [CBC with differential of eleven 6.6, hemoglobin 14, hematocrit 42, platelets 176. Chemistries unremarkable. Glucose of 215. BUN 31 creatinine 1.26. LFTs for the total bili 1.2, alk phos 194, ALT of 28 and AST of 47. Lactate is 1.2. CT scan of the abdomen pelvis with IV and p.o. contrast showed colitis of the ascending colon with some thickening of the bowel wall and some stranding along the descending colon.] Emergency Department Course and Treatment: [Patient was given normal saline on arrival and she was started on Dilaudid 1 mg IV as well as Zofran 4 mg IV. Patient was given Cipro and Flagyl p.o. Patient's pain returned.] Treatment Plan: [Admit] Disposition: [Admit for symptom management.] Impression: [Colitis Abdominal pain Ascites] This note was generated with [employer] software. It may contain incorrect words, spelling, and punctuation that were not noted in review of the chart prior to signing ED Disposition - Plan for ED Patient: Referrals: Froilan Rosenthal Chi, MD [Primary Care Provider] -
[2019-09-28] MEDS: Ciprofloxacin 250 MG Tablet 500 MG PO (18:34)
[2019-09-28] MEDS: metroNIDAZOLE 500 MG Tablet PO (18:34)
--- NOTE | 2019-09-28 18:44 | PCM.HP.STD ---
Problem List (1) Liver cirrhosis Status: Chronic (2) Hyperlipidemia Status: Chronic (3) Anxiety Status: Chronic (4) Depression Status: Chronic Qualifiers: (5) HTN (hypertension) Status: Chronic Qualifiers: (6) Type II diabetes mellitus Status: Chronic (7) Peripheral neuropathy Status: Chronic Qualifiers: (8) Tobacco use disorder Status: Chronic History of Present Illness Date of Admission: 09/28/19 Chief Complaint: Abdominal pain. The patient is a 59 year old F patient with past medical history as mentioned above presented to the emergency room because of abdominal pain. Pain is on the both sides of the abdomen, bilateral subcostal and lumbar regions, sharp pain, 9 out of 10 in severity, goes across her upper abdomen, associated with nausea and vomiting and without aggravating or relieving factors. She mentioned that she noted some streaks of blood on her vomitus but there was no significant amount of blood. She denied epistaxis, hemoptysis, hematemesis or hematochezia. She denied melena as well. She denies fever or chills. 2 days ago, she came to the emergency department for increasing abdominal distention and pain, underwent therapeutic paracentesis and 6.5 L of fluids were taken out. Patient is not sure that she does have liver cirrhosis. Upon revision of her chart, patient was diagnosed with liver cirrhosis based on CT-guided liver biopsy done on September 05, 2019 and histopathology specimen revealed findings consistent with liver cirrhosis. Patient denies any history of alcohol drinking. She had infection with celiac screen for a test A, B and C which was negative on October,. In the emergency department, her vital signs were stable. Her routine blood work was remarkable for BUN of 34, creatinine of 1.26 which are chronic. LFT revealed bilirubin of 1.2, AST of 47, ALT of 28 and alkaline phosphatase of 194. CT scan abdomen and pelvis with contrast done today and revealed that moderate to large amount of ascites, circumferential wall thickening and pericolonic fat stranding of the ascending colon. She is being admitted for abdominal pain probably due to acute colitis of the ascending colon, other possible diagnoses is spontaneous bacterial peritonitis although it is less likely and also being admitted for increasing ascites due to liver cirrhosis. 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 Luke. Abnormal EKG (Chronic) ekg's indicating possible previous inferior infarct HTN (hypertension) (Chronic) Debility (Chronic) Type II diabetes mellitus (Chronic) Peripheral neuropathy (Chronic) Tobacco use disorder (Chronic) Obesity (Chronic) Medical History: Medical History (Last Updated 09/28/19 @ 18:43 by Xochitl Pittman MD) Hyperlipidemia (Chronic) E78.5 Abnormal EKG (Chronic) R94.31 ekg's indicating possible previous inferior infarct HTN (hypertension) (Chronic) I10 Type II diabetes mellitus (Chronic) E11.9 Peripheral neuropathy (Chronic) G62.9 Tobacco use disorder (Chronic) F17.200 Allergies clindamycin [From Cleocin] Allergy (Verified 09/28/19 14:12) Itching Sulfa (Sulfonamide Antibiotics) Allergy (Verified 09/28/19 14:12) Itching ondansetron [From Zofran (as hydrochloride)] Adverse Reaction (Verified 09/28/19 14:12) Nausea Home Medications: Ambulatory Orders Medication Instructions Recorded proMETHazine tablet [Phenergan 25 mg PO Q6H PRN PRN 06/11/18 tablet] Oxycodone [Oxyir] 5 mg PO BID 11/21/18 Surgical History: Surgical History (Last Updated 09/28/19 @ 18:43 by Xochitl Pittman MD) 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 Luke. Surgical History: cholecystectomy, - - Amputation of the left fourth and fifth toes and metatarsals. Psychiatric History: Anxiety, Depression READING ASSISTANT History: No pertinent READING ASSISTANT history Lives: Alone Smoking Status: Current every day smoker Tobacco Use: Cigarettes Alcohol: None Drugs: None - *Family History Maternal Family History: Family History (Last Reviewed 01/06/19 @ 21:40 by Marta Santos) Mother CAD (coronary artery disease) Father Arthritis Brother Arthritis History Items: Heart Disease, - - mother at age 67 bof heart disease. Paternal Family History: Family History (Last Reviewed 01/06/19 @ 21:40 by Marta Santos) Mother CAD (coronary artery disease) Father Arthritis Brother Arthritis Review of Systems Constitutional: Reports: Anorexia, Weakness. Denies: Chills, Fever Eyes: Denies: Blurred vision, Double vision, Drainage, Redness HEENT: Denies: Difficulty Hearing, Ear Pain, Eye Pain, Nasal Congestion, Sore Throat Cardiovascular: Denies: Chest Pain, Chest Pressure, Chest Tightness, Edema, Heaviness, Palpitations, Syncope Respiratory: Denies: Cough, Pleuritic Pain, Shortness of Breath, Sputum production, Wheezing Gastrointestinal: Reports: Abdominal Pain, Nausea, Vomiting. Denies: Constipation, Diarrhea, Hematochezia, Melena Genitourinary: Denies: Dysuria, Frequency, Hematuria Musculoskeletal: Denies: Arm Pain, Back Pain, Foot Pain Skin: Denies: Dryness, Rash Neurological: Denies: Balance problems, Double vision, Change in Speech, Focal weakness, Headaches, Incoordination Psychiatric: Reports: Anxiety, Depression Endocrine: Denies: Change in Body Habitus, Polydipsia, Polyuria VTE Information - Inpt Only VTE Present on Admission: No VTE Mechan Device Prophylaxis: None VTE Pharm Prophylaxis ordered?: Yes - Physical Exam Vitals/I&O's: Vital Signs Temp Pulse Resp BP Pulse Ox 97.9 F 77 16 106/53 L 97 09/28/19 14:12 09/28/19 17:53 09/28/19 17:53 09/28/19 17:53 09/28/19 17:53 Oxygen Delivery Method Room Air Weight: 170 lb Body Mass Index (BMI) 29.2 Finger Stick Blood Glucose 197 General: Alert, Oriented x3, Cooperative, No apparent distress HEENT: Atraumatic, PERRLA, EOMI, Normocephalic Oral: Moist Mucosa, No Gingival or Mucosal Lesions/ Ulcerations Neck: Supple, No JVD, Negative Carotid Bruits, Trachea Midline, Thyroid Normal Size and Texture Lungs: Clear to auscultation, Normal air movement, No rhonchi, No wheeze, No rales Cardiovascular: Regular rate, Regular Rhythm, Normal S1, Normal S2, PMI Normal Abdomen: Bowel Sounds Present, Soft, Non Tender, No Hepato-splenomegaly, Distended, - - Massive ascites. Extremities: No clubbing, No cyanosis, No edema Skin: No rashes, No breakdown Lymphatic: No Cervical, Supraclavicular, or Inguinal Adenopathy Neurological: Cranial nerves II-XII grossly intact, Motor Exam 5/5 strength throughout Psych/Mental Status: Normal Affect, Appropriate, Alert and oriented to time, place, person, mood and affect Laboratory Results 09/28/19 14:48: WBC 6.6, RBC 4.42, Hgb 14.3, Hct 42.0, MCV 95.0, MCH 32.4 H, MCHC 34.0, RDW Std Deviation 48.2 H, RDW Coeff of Bonnie 13.7, Plt Count 176, MPV 9.5, Immature Gran % (Auto) 0.600, Neut % (Auto) 62.2, Lymph % (Auto) 25.8, [place]bert % (Auto) 8.1, Eos % (Auto) 2.4, Baso % (Auto) 0.9, Absolute Neuts (auto) 4.1, Absolute Lymphs (auto) 1.71, Nucleated RBC % 0 09/28/19 14:48: Sodium 139, Potassium 3.7, Chloride 107, Carbon Dioxide 23.0, Anion Gap 9, BUN 34 H, Creatinine 1.26 H, Estim Creat Clear Calc 40.49, Est GFR (MDRD) Af Amer 55 L, Est GFR (MDRD) Non-Af 46 L, BUN/Creatinine Ratio 27.0 H, Glucose 215 H, Calcium 8.1 L, Total Bilirubin 1.20 H, AST 47 H, ALT 28, Alkaline Phosphatase 194 H, Total Protein 6.3 L, Albumin 2.2 L, Globulin 4.1, Albumin/Globulin Ratio 0.5 L 09/28/19 14:48: Lactic Acid 1.2 09/28/19 17:30: Urine Color Yellow, Urine Clarity Sl. Cloudy, Urine pH 5.0, Ur Specific [place] 1.010, Urine Protein 30 H, Urine Glucose (UA) Normal, Urine Ketones Negative, Urine Occult Blood 10 H, Urine Nitrite Negative, Urine Bilirubin Negative, Urine Urobilinogen 8 H, Ur Leukocyte Esterase Negative, Urine RBC 0-5 SEEN, Urine WBC 0 SEEN, Ur Squamous Epith Cells 10-25 SEEN, Urine Bacteria 1+, Urine Mucus 0 SEEN Clinical Impression(s) from Imaging Studies Abdomen/Pelvis CT 09/28/19 14:40 IMPRESSION: Moderate to large volume ascites fluid however, there appears to be circumferential wall thickening and pericolonic fat stranding of the ascending colon suggesting colitis. Remainder of the colon appears within normal limits. Normal appendix Electronically Signed: Clyde Jones DO at 17:27 EST Tel , Service support , Current Medications Sodium Chloride () 1,000 mls @ 125 mls/hr IV .Q8H [facility] Last Admin: 09/28/19 14:57 Dose: 125 mls/hr Documented by: Assessment/Plan This is a 59 years old female patient presented to the emergency room because of abdominal pain, had therapeutic paracentesis 2 days ago and she was found to have findings consistent with acute colitis of the ascending colon on the CT scan abdomen and she is being admitted for treatment. #1 abdominal pain/acute colitis of the ascending colon: Other differential diagnosis is spontaneous bacterial peritonitis although it is less likely but patient had paracentesis 2 days ago. She has been afebrile, no leukocytosis. No significant tenderness on abdominal examination. Patient does have a liver cirrhosis which was confirmed by CT scan guided liver biopsy on September 05, 2019 and the pathology was all came back positive for liver cirrhosis. Patient denied any alcohol drinking. She had infectious hepatitis screen for reflux a, B and C on October 2018 and that was negative. Plan: Admit to [facility] floor, start IV morphine PRN for pain, OxyIR for pain, IV Phenergan as needed, start IV Rocephin and Flagyl empirically for both colitis and suspected spontaneous bacterial peritonitis, diagnostic and therapeutic paracentesis, ascitic fluid analysis, check serum lipase, repeat CBC and CMP tomorrow morning, check pro time and INR, PT OT evaluation and treatment. #2 liver cirrhosis: Unclear etiology, confirmed on September 05, [address] scan guided liver biopsy. Patient denied drinking alcohol. Infectious hepatitis screen was negative on October,. She is alert and noted x3. Plan: Paracentesis above, lactulose twice daily, start Aldactone 25 g p.o. daily, check serum ammonia. #3 type 2 diabetes mellitus: Patient was taken off insulin because her sugar has been low. Hemoglobin A1c was 8.4% on March,. Plan: Accu-Cheks AC at bedtime, insulin sliding scale, check hemoglobin A1c. #4 hypertension: Blood pressure stable, she is off her antihypertensive medications because of low blood pressure. #5 peripheral neuropathy: Continue gabapentin after home medication list updated. #6 hyperlipidemia: Not sure of patient on statins but statins listed on her discharge summary on August,. Continue when home medication list updated. #7 anxiety/depression: Continue medications when home medication list updated. #8 tobacco abuse: NicoDerm patch if desired. #9 DVT prophylaxis: Subcu heparin. This note was generated with [employer] dictation software. It may contain incorrect words, spelling, and punctuation that were not noted in checking the note before signing. Code Visit Inpatient E&M: 91659 Init Hosp L3
[2019-09-28 19:22] VITALS: BMI 29.5
[2019-09-28 19:29] VITALS: BP 98/81; PULSE 83; RESP 16; TEMP 36.7; O2SAT 99
[2019-09-28 19:41] VITALS: BMI 29.5
[2019-09-28 19:49] LABS: Lipase 373 U/L (73-393)
[2019-09-28 20:30] LABS: International Normalized Ratio 1.1; Prothrombin Time (Protime)PT. 13.9 SECONDS (11.7-14.9)
[2019-09-28] MEDS: Lactulose 20 GM/30 ML UDC PO (22:15)
[2019-09-28] MEDS: Morphine 2 MG/ML Syringe IV (22:15)
[2019-09-28] MEDS: Heparin Injection (Vial) 5,000 UNIT/ML VIAL 5000 UNIT SC (22:15)
[2019-09-28] MEDS: 0.9% Saline Lock 10 ML Syringe IV (22:15)
--- NOTE | 2019-09-28 22:15 | NURSING ---
PT REPORTS SHE IS ONLY ON [place] MED AND PAIN MED AT HOME SHE HAD LOW BLOOD PRESSURE AND HER A1C WAS OK SO HER DR TOLD HER TO STOP TAKING HER MEDS
[2019-09-28] MEDS: oxyCODONE 5 MG Tablet PO (23:27)
[2019-09-28 23:38] VITALS: PULSE 78
[2019-09-29] VITALS (7 sets, daily range): BP systolic 94–140; BP diastolic 47–59; PULSE 73–90; RESP 16–18; TEMP 37–37.7; O2SAT 97–100
[2019-09-29 01:31] LABS: Bedside Glucose 137 mg/dL (70-110)
[2019-09-29] MEDS: 0.9% Saline Lock 10 ML Syringe IV ×5 (05:39→23:05)
[2019-09-29] MEDS: metroNIDAZOLE 500 MG/100 ML BAG 100 MG IV ×3 (05:39→23:02)
[2019-09-29] MEDS: oxyCODONE 5 MG Tablet PO ×2 (05:39→10:19)
[2019-09-29 06:19] LABS: Absolute Lymphocyte Count 1.73 X10^3/uL (0.83-4.51); Absolute Neutrophil Count 2.9 X10^3/uL (2.0-7.7); Basophil# 0.05 X10^3/uL; Basophil% 0.9 % (0-1); Eosinophil# 0.11 X10^3/uL; Eosinophils% 2.1 % (0-5); Hematocrit 35.5 % (37-47); Hemoglobin 11.9 g/dL (12.0-15.0); Lymphocyte # 1.73 X10^3/ul (4.0); Lymphocyte % 32.6 % (19-41); Mean Corp Hgb Conc 33.5 g/dL (32-36); Mean Corpuscular Hgb 31.7 pg (27.0-32.0); Mean Corpuscular Volume 94.7 fL (81-99); Mean Platelet Vol. 10.2 fl (6.2-12.0); Monocyte# 0.51 X10^3/uL; Monocyte% 9.6 % (0-10); NRBC Flagged by Analyzer 0 % (0-5); Neutrophil # 2.88 X10^3/uL (2.7-7.7); Neutrophil % 54.4 % (47-70); Platelet Count 150 K/mm3 (150-450); RBC Distribution Width CV 13.8 % (11.6-14.6); RBC Distribution Width SD 48.2 fl (35.1-43.9); Red Blood Count 3.75 M/mm3 (4.2-5.4); White Blood Count 5.3 K/mm3 (4.4-11.0)
[2019-09-29 06:45] LABS: ALB/GLOB Ratio 0.5 RATIO (0.9-2.4); AST(SGOT) 49 U/L (15-37); Alanine Aminotransfer ALT/SGPT 25 U/L (13-56); Albumin, Serum 1.8 g/dL (3.2-5.0); Alkaline Phosphatase 162 U/L (45-117); Anion Gap 8 (5-15); BUN 29 mg/dL (7-18); BUN/Creat Ratio 26.1 RATIO (10-20); Calcium,Total 7.6 mg/dL (8.5-10.1); Chloride 108 mmol/L (98-107); Creatinine, Serum 1.11 mg/dL (0.55-1.02); EST Glomerular Filtration Rate 53 mL/min (>60); Est Glom Filt Rate - Afr Amer 64 mL/min (>60); Estimated Creatinine Clearance 45.96 ml/min; Globulin 3.7 g/dL (2.2-4.2); Glucose 109 mg/dL (74-106); Potassium 3.6 mmol/L (3.5-5.1); Protein, Total 5.5 g/dL (6.4-8.2); Sodium Level 138 mmol/L (136-145)
[2019-09-29 06:51] LABS: Bedside Glucose 117 mg/dL (70-110)
--- NOTE | 2019-09-29 07:31 | PCM.PN.HOSP ---
Reason for Visit: Follow-up; abdominal pain Subjective: Patient is a 59-year-old lady with history of cirrhosis of the liver who presented with abdominal pain. She had apparently undergone paracentesis 2 days prior to her admission. CAT scan obtained on admission demonstrated moderate to large volume ascites as well as circumferential wall thickening and pericolonic fat stranding of the ascending colon suggesting colitis admitted to regular nursing floor for further management Objective: GENERAL: cooperative HEENT: Atraumatic; EYES; Anicteric, Normal Conjunctiva NECK; supple, normal thyroid, RESPIRATORY: Diminished to auscultation CARDIOVASCULAR: Regular S1 S2, GI: Distended with shifting dullness : No Renal angle tenderness; EXTREMITIES: No edema, no clubbing, MUSCULOSKELETAL: no muscle waisting NEURO: Awake; no lateralizing signs. SKIN: No Rash PSYCH; Flat affect Vitals/I&O's: Vital Signs Temp Pulse Resp BP Pulse Ox 98.8 F 73 16 94/50 L 100 09/29/19 01:53 09/29/19 03:56 09/29/19 01:53 09/29/19 01:53 09/29/19 01:53 Oxygen Delivery Method Room Air Weight: 78 kg Body Mass Index (BMI) 29.5 Finger Stick Blood Glucose 197 Intake and Output for Last 24 Hours 09/27/19 09/28/19 09/29/19 23:59 23:59 23:59 Intake Total 1290.08 / 1290.08 580 / 580 Balance 1290.08 / 1290.08 580 / 580 Laboratory Results 09/28/19 14:48: WBC 6.6, RBC 4.42, Hgb 14.3, Hct 42.0, MCV 95.0, MCH 32.4 H, MCHC 34.0, RDW Std Deviation 48.2 H, RDW Coeff of Bonnie 13.7, Plt Count 176, MPV 9.5, Immature Gran % (Auto) 0.600, Neut % (Auto) 62.2, Lymph % (Auto) 25.8, [place] % (Auto) 8.1, Eos % (Auto) 2.4, Baso % (Auto) 0.9, Absolute Neuts (auto) 4.1, Absolute Lymphs (auto) 1.71, Nucleated RBC % 0 09/28/19 14:48: Sodium 139, Potassium 3.7, Chloride 107, Carbon Dioxide 23.0, Anion Gap 9, BUN 34 H, Creatinine 1.26 H, Estim Creat Clear Calc 40.49, Est GFR (MDRD) Af Amer 55 L, Est GFR (MDRD) Non-Af 46 L, BUN/Creatinine Ratio 27.0 H, Glucose 215 H, Calcium 8.1 L, Total Bilirubin 1.20 H, AST 47 H, ALT 28, Alkaline Phosphatase 194 H, Total Protein 6.3 L, Albumin 2.2 L, Globulin 4.1, Albumin/Globulin Ratio 0.5 L 09/28/19 14:48: Lactic Acid 1.2 09/28/19 14:48: PT 13.9, INR 1.1 09/28/19 14:48: Lipase 373 09/28/19 17:30: Urine Color Yellow, Urine Clarity Sl. Cloudy, Urine pH 5.0, Ur Specific Kennedy 1.010, Urine Protein 30 H, Urine Glucose (UA) Normal, Urine Ketones Negative, Urine Occult Blood 10 H, Urine Nitrite Negative, Urine Bilirubin Negative, Urine Urobilinogen 8 H, Ur Leukocyte Esterase Negative, Urine RBC 0-5 SEEN, Urine WBC 0 SEEN, Ur Squamous Epith Cells 10-25 SEEN, Urine Bacteria 1+, Urine Mucus 0 SEEN 09/28/19 20:41: Ammonia 66.0 H 09/28/19 22:19: POC Glucose 137 H 09/29/19 05:25: WBC 5.3, RBC 3.75 L, Hgb 11.9 L, Hct 35.5 L, MCV 94.7, MCH 31.7, MCHC 33.5, RDW Std Deviation 48.2 H, RDW Coeff of Bonnie 13.8, Plt Count 150, MPV 10.2, Immature Gran % (Auto) 0.400, Neut % (Auto) 54.4, Lymph % (Auto) 32.6, [place] % (Auto) 9.6, Eos % (Auto) 2.1, Baso % (Auto) 0.9, Absolute Neuts (auto) 2.9, Absolute Lymphs (auto) 1.73, Nucleated RBC % 0 09/29/19 05:25: Sodium 138, Potassium 3.6, Chloride 108 H, Carbon Dioxide 22.0, Anion Gap 8, BUN 29 H, Creatinine 1.11 H, Estim Creat Clear Calc 45.96, Est GFR (MDRD) Af Amer 64, Est GFR (MDRD) Non-Af 53 L, BUN/Creatinine Ratio 26.1 H, Glucose 109 H, Calcium 7.6 L, Total Bilirubin 0.90, AST 49 H, ALT 25, Alkaline Phosphatase 162 H, Total Protein 5.5 L, Albumin 1.8 L, Globulin 3.7, Albumin/Globulin Ratio 0.5 L 09/29/19 06:45: POC Glucose 117 H Current Medications Dextrose (D50w Syringe) 0 gm IV X1 PRN; Protocol PRN Reason: Hypoglycemia Glucagon () 1 mg IM .X1 PRN PRN Reason: Hypoglycemia Heparin Sodium (Porcine) (Heparin Na) 5,000 unit SC Q12 [facility] Last Admin: 09/28/19 22:15 Dose: 5,000 unit Documented by: Ceftriaxone Sodium 2 gm/ (Sodium Chloride) 50 mls @ 100 mls/hr IV Q24@2200 [facility] Last Infusion: 09/28/19 20:43 Dose: Infused Documented by: Metronidazole (Flagyl) 500 mg in 100 mls @ 100 mls/hr IV Q8 [facility] Last Infusion: 09/29/19 06:39 Dose: Infused Documented by: Insulin Human Lispro (Humalog Kwikpen (Bkc)) 0 unit SC ACHS [facility]; Protocol Last Admin: 09/29/19 06:51 Dose: Not Given Documented by: Lactulose (Chronulac, Cephulac) 20 gm PO BID [facility] Last Admin: 09/28/19 22:15 Dose: 20 gm Documented by: Morphine Sulfate () 1 - 2 mg IV Q3H PRN PRN PRN Reason: Pain Score 6-10/10 Last Admin: 09/28/19 22:15 Dose: 2 mg Documented by: Oxycodone HCl (Oxyir) 5 mg PO Q4H PRN PRN PRN Reason: Pain Score 4-5/10 Last Admin: 09/29/19 05:39 Dose: 5 mg Documented by: Pantoprazole Sodium (Protonix) 40 mg PO DAILY [facility] Promethazine HCl (Phenergan) 12.5 mg IV Q6H PRN PRN PRN Reason: NAUSEA/VOMITING Sodium Chloride () 10 - 40 ml IV UD PRN PRN Reason: SALINE FLUSH Last Admin: 09/29/19 05:39 Dose: 10 ml Documented by: Spironolactone (Aldactone) 25 mg PO DAILY [facility] Vital Signs/Narrative: Vital Signs Pulse 09/29/19 03:56 73 Medical Necessity - Tobacco Use Smoking Status: Current every day smoker Tobacco Use: Cigarettes Assessment/Plan Patient is a 59-year-old lady with history of cirrhosis of the liver who presented with abdominal pain. She had apparently undergone paracentesis 2 days prior to her admission. CAT scan obtained on admission demonstrated moderate to large volume ascites as well as circumferential wall thickening and pericolonic fat stranding of the ascending colon suggesting colitis admitted to regular nursing floor for further management 1. Abdominal pain ~secondary to colitis. Patient was started on Rocephin and Flagyl admitted to regular nursing floor for further management 2. Ascites ~patient has underlying cirrhosis of the liver she underwent paracentesis on 09/26/2019. With patient presented with abdominal pain a suspicion of possible SBP was entertained empirically started on antibiotics repeat paracentesis (both diagnostic and therapeutic) ordered. In the meantime is on empiric antibiotic therapy with Rocephin 3. Cirrhosis of the liver ~with ascites management as discussed above 4. Essential hypertension ~patient was previously on antihypertensives which was subsequently weaned off following significant improvement in her blood pressure by her PCP 5. Diabetes mellitus type 2 ~Currently diet controlled patient was previously on insulin and again per patient this was weaned off by her PCP. Hemoglobin A1c in March 2019 was reported to be 8 point 4 repeat hemoglobin A1c ordered. Patient was also placed on Accu-Cheks before meals and at bedtime with sliding scale coverage 6. Diabetic neuropathy ~patient previously on gabapentin 7. Chronic pain syndrome ~Patient is followed by Dr. Martinez; on scheduled TIR at home did continue 8. Dyslipidemia ~Previously on statin therapy has been weaned off 9. Depression with anxiety ~currently not on any medications 10. Tobacco dependence ~counseled on cessation, offered nicotine patch for tobacco cravings 11. DVT prophylaxis ~SC heparin Advance planning; did discuss with the patient who was previously under palliative care, regarding advanced directives as well as CODE STATUS. Did explain the various scenarios involved ( FULL CODE, DNR CCA, DNR CCA with no intubation, and DNR CC and what each meant) patient elected remain full code with intubation and CPR if needed. Order was placed. Time spent on discussion 18 minutes. Clinical Impression(s) from Imaging Studies Abdomen/Pelvis CT 09/28/19 14:40 IMPRESSION: Moderate to large volume ascites fluid however, there appears to be circumferential wall thickening and pericolonic fat stranding of the ascending colon suggesting colitis. Remainder of the colon appears within normal limits. Normal appendix Electronically Signed: Clyde Jones DO at 17:27 EST Tel , Service support , Code Visit Inpatient E&M: 10713 Subs Hosp L2 Procedures: 32240 Advncd Care Plan 30 Min
[2019-09-29] MEDS: proMETHazine 25 MG/ML Syringe 12.5 MG IV ×3 (08:09→23:05)
[2019-09-29 08:53] LABS: International Normalized Ratio 1.2; Prothrombin Time (Protime)PT. 15.3 SECONDS (11.7-14.9)
[2019-09-29 08:57] LABS: Hemoglobin A1c 6.4 % (4.2-6.3)
[2019-09-29] MEDS: Spironolactone 25 MG Tablet PO (10:20)
[2019-09-29] MEDS: Pantoprazole Sodium 40 MG Tablet PO (10:21)
[2019-09-29] MEDS: Heparin Injection (Vial) 5,000 UNIT/ML VIAL 5000 UNIT SC ×2 (10:21→22:11)
[2019-09-29] MEDS: Lactulose 20 GM/30 ML UDC PO ×2 (10:21→22:05)
[2019-09-29] MEDS: Insulin Lispro 100 UNIT/ML INSULN.PEN SC ×3 (11:56→22:15)
[2019-09-29 12:11] LABS: Bedside Glucose 221 mg/dL (70-110)
[2019-09-29] MEDS: oxyCODONE 5 MG Tablet 10 MG PO ×3 (14:07→23:02)
[2019-09-29 16:46] LABS: Bedside Glucose 162 mg/dL (70-110)
[2019-09-29 23:21] LABS: Bedside Glucose 191 mg/dL (70-110)
[2019-09-30] VITALS (7 sets, daily range): BP systolic 102–153; BP diastolic 35–85; PULSE 78–86; RESP 16–18; TEMP 37–37.2; O2SAT 97–100
--- NOTE | 2019-09-30 | FLU_PTH ---
PATIENT: VITOR ALBERTO LOC: MS3 U#:[id number] AGE/SX: 59/F ROOM: [place] RE09/28/[address]: Dr. Douglas Cohen MD : 1960 BED: 1 DIS: 10/02/2019 SPEC #: [id number] RECD: 09/30/19 14:56 STATUS: [facility]AHMAN REQ #: [id number] LINNEA: 09/30/19 00:[address]: Douglas Cohen DEPT: CYTOLOGY RECD BY: Wayne Mcleod ENTERED: 10/01/19 07:21 SP TYPE: Fluid OTHR DR: MD Dr. Froilan Colvin Chi, MD Tissues: PARACENTESIS FLUID Procedures: Special Stain Group II Surgery Specimen Level IV Cytospin Fluid HEADER OPERATION: Ultrasound-guided paracentesis PRE-OP DIAGNOSIS: Ascites TISSUE SUBMITTED: Paracentesis fluid for cytology DIAGNOSIS CYTOLOGY Paracentesis fluid for cytology (cytospin and cell block): Negative for malignant cells. AM:margarita 10/02/19 CYTOLOGY STUDY Slides are reviewed. CYTOLOGY GROSS Received is 100 ml of red cloudy fluid labeled with the patient's name and and designated per the requisition as paracentesis. Submitted for cytology preparation including cell block. / margarita 10/01/19 TC:5 CPT: 62096, 11695
[2019-09-30 05:45] LABS: Absolute Lymphocyte Count 1.68 X10^3/uL (0.83-4.51); Absolute Neutrophil Count 2.3 X10^3/uL (2.0-7.7); Basophil# 0.04 X10^3/uL; Basophil% 0.9 % (0-1); Eosinophil# 0.13 X10^3/uL; Eosinophils% 2.8 % (0-5); Hemoglobin 11.6 g/dL (12.0-15.0); Lymphocyte # 1.68 X10^3/ul (4.0); Lymphocyte % 36.1 % (19-41); Mean Corp Hgb Conc 33.1 g/dL (32-36); Mean Corpuscular Hgb 31.5 pg (27.0-32.0); Mean Corpuscular Volume 95.1 fL (81-99); Mean Platelet Vol. 9.9 fl (6.2-12.0); Monocyte# 0.45 X10^3/uL; Monocyte% 9.7 % (0-10); NRBC Flagged by Analyzer 0 % (0-5); Neutrophil # 2.33 X10^3/uL (2.7-7.7); Neutrophil % 50.1 % (47-70); Platelet Count 138 K/mm3 (150-450); RBC Distribution Width CV 13.8 % (11.6-14.6); RBC Distribution Width SD 48.4 fl (35.1-43.9); Red Blood Count 3.68 M/mm3 (4.2-5.4); White Blood Count 4.7 K/mm3 (4.4-11.0)
[2019-09-30 06:02] LABS: Anion Gap 7 (5-15); BUN 24 mg/dL (7-18); Calcium,Total 7.6 mg/dL (8.5-10.1); Chloride 112 mmol/L (98-107); Creatinine, Serum 1.09 mg/dL (0.55-1.02); EST Glomerular Filtration Rate 54 mL/min (>60); Est Glom Filt Rate - Afr Amer 66 mL/min (>60); Glucose 173 mg/dL (74-106); Magnesium 1.8 mg/dL (1.6-2.6); Potassium 3.8 mmol/L (3.5-5.1); Sodium Level 140 mmol/L (136-145)
[2019-09-30] MEDS: metroNIDAZOLE 500 MG/100 ML BAG 100 MG IV (06:14)
[2019-09-30] MEDS: oxyCODONE 5 MG Tablet 10 MG PO ×4 (06:15→23:51)
[2019-09-30] MEDS: 0.9% Saline Lock 10 ML Syringe IV (06:15)
[2019-09-30 06:23] LABS: International Normalized Ratio 1.2; Prothrombin Time (Protime)PT. 14.9 SECONDS (11.7-14.9)
[2019-09-30 06:46] LABS: Bedside Glucose 149 mg/dL (70-110)
--- NOTE | 2019-09-30 07:16 | PCM.PN.HOSP ---
Reason for Visit: Follow-up abdominal pain Subjective: Complains of significant abdominal pain pain regimen was adjusted. Patient scheduled to undergo diagnostic and therapeutic paracentesis Objective: GENERAL: cooperative HEENT: Atraumatic; EYES; Anicteric, Normal Conjunctiva NECK; supple, normal thyroid, RESPIRATORY: Diminished to auscultation CARDIOVASCULAR: Regular S1 S2, GI: Distended with shifting dullness : No Renal angle tenderness; EXTREMITIES: No edema, no clubbing, MUSCULOSKELETAL: no muscle waisting NEURO: Awake; no lateralizing signs. SKIN: No Rash PSYCH; Flat affect Vitals/I&O's: Vital Signs Temp Pulse Resp BP Pulse Ox 98.7 F 83 16 119/53 L 100 09/30/19 03:10 09/30/19 03:10 09/30/19 03:10 09/30/19 03:10 09/30/19 03:10 Oxygen Delivery Method Room Air Weight: 78 kg Body Mass Index (BMI) 29.5 Finger Stick Blood Glucose 197 Intake and Output for Last 24 Hours 09/28/19 09/29/19 09/30/19 23:59 23:59 23:59 Intake Total 1290.08 / 1290.08 1180 / 1180 100 / 100 Balance 1290.08 / 1290.08 1180 / 1180 100 / 100 Laboratory Results 09/29/19 05:25: Hemoglobin A1c 6.4 H 09/29/19 08:25: PT 15.3 H, INR 1.2 09/29/19 11:53: POC Glucose 221 H 09/29/19 16:32: POC Glucose 162 H 09/29/19 22:14: POC Glucose 191 H 09/30/19 05:04: WBC 4.7, RBC 3.68 L, Hgb 11.6 L, Hct 35.0 L, MCV 95.1, MCH 31.5, MCHC 33.1, RDW Std Deviation 48.4 H, RDW Coeff of Bonnie 13.8, Plt Count 138 L, MPV 9.9, Immature Gran % (Auto) 0.400, Neut % (Auto) 50.1, Lymph % (Auto) 36.1, Grundy % (Auto) 9.7, Eos % (Auto) 2.8, Baso % (Auto) 0.9, Absolute Neuts (auto) 2.3, Absolute Lymphs (auto) 1.68, Nucleated RBC % 0 09/30/19 05:04: PT 14.9, INR 1.2, APTT 34.0 09/30/19 05:04: Sodium 140, Potassium 3.8, Chloride 112 H, Carbon Dioxide 21.0, Anion Gap 7, BUN 24 H, Creatinine 1.09 H, Estim Creat Clear Calc 46.80, Est GFR (MDRD) Af Amer 66, Est GFR (MDRD) Non-Af 54 L, BUN/Creatinine Ratio 22.0 H, Glucose 173 H, Calcium 7.6 L, Magnesium 1.8 09/30/19 06:17: POC Glucose 149 H Current Medications Dextrose (D50w Syringe) 0 gm IV X1 PRN; Protocol PRN Reason: Hypoglycemia Glucagon () 1 mg IM .X1 PRN PRN Reason: Hypoglycemia Heparin Sodium (Porcine) (Heparin Na) 5,000 unit SC Q12 [facility] Last Admin: 09/29/19 22:11 Dose: 5,000 unit Documented by: Ceftriaxone Sodium 2 gm/ (Sodium Chloride) 50 mls @ 100 mls/hr IV Q24@2200 [facility] Last Infusion: 09/29/19 22:34 Dose: Infused Documented by: Metronidazole (Flagyl) 500 mg in 100 mls @ 100 mls/hr IV Q8 [facility] Last Admin: 09/30/19 06:14 Dose: 100 mls/hr Documented by: Insulin Human Lispro (Humalog Kwikpen (Bkc)) 0 unit SC ACHS [facility]; Protocol Last Admin: 09/30/19 06:20 Dose: Not Given Documented by: Lactulose (Chronulac, Cephulac) 20 gm PO BID [facility] Last Admin: 09/29/19 22:05 Dose: 20 gm Documented by: Morphine Sulfate () 1 - 2 mg IV Q3H PRN PRN PRN Reason: Pain Score 6-10/10 Last Admin: 09/28/19 22:15 Dose: 2 mg Documented by: Nicotine (Nicoderm Cq (Pbkc)) 21 mg TRANSDERM. DAILY [facility] Last Admin: 09/29/19 10:20 Dose: 21 mg Documented by: Oxycodone HCl (Oxyir) 10 mg PO Q4H PRN PRN PRN Reason: Pain Score 4-10/10 Last Admin: 09/30/19 06:15 Dose: 10 mg Documented by: Pantoprazole Sodium (Protonix) 40 mg PO DAILY [facility] Last Admin: 09/29/19 10:21 Dose: 40 mg Documented by: Promethazine HCl (Phenergan) 12.5 mg IV Q6H PRN PRN PRN Reason: NAUSEA/VOMITING Last Admin: 09/29/19 23:05 Dose: 12.5 mg Documented by: Sodium Chloride () 10 - 40 ml IV UD PRN PRN Reason: SALINE FLUSH Last Admin: 09/30/19 06:15 Dose: 20 ml Documented by: Spironolactone (Aldactone) 25 mg PO DAILY [facility] Last Admin: 09/29/19 10:20 Dose: 25 mg Documented by: Medical Necessity - Tobacco Use Smoking Status: Current every day smoker Tobacco Use: Cigarettes Assessment/Plan Patient is a 59-year-old lady with history of cirrhosis of the liver who presented with abdominal pain. She had apparently undergone paracentesis 2 days prior to her admission. CAT scan obtained on admission demonstrated moderate to large volume ascites as well as circumferential wall thickening and pericolonic fat stranding of the ascending colon suggesting colitis admitted to regular nursing floor for further management 1. Abdominal pain ~secondary to colitis. Patient was started on Rocephin and Flagyl admitted to regular nursing floor for further management 2. Ascites ~patient has underlying cirrhosis of the liver she underwent paracentesis on 09/26/2019. With patient presented with abdominal pain a suspicion of possible SBP was entertained empirically started on antibiotics repeat paracentesis (both diagnostic and therapeutic) ordered. In the meantime is on empiric antibiotic therapy with Rocephin ?09/30/2019 Complains of significant abdominal pain pain regimen was adjusted. Patient scheduled to undergo diagnostic and therapeutic paracentesis 3. Cirrhosis of the liver ~with ascites management as discussed above 4. Essential hypertension ~patient was previously on antihypertensives which was subsequently weaned off following significant improvement in her blood pressure by her PCP 5. Diabetes mellitus type 2 ~Currently diet controlled patient was previously on insulin and again per patient this was weaned off by her PCP. Hemoglobin A1c in March 2019 was reported to be 8 point 4 repeat hemoglobin A1c ordered. Patient was also placed on Accu-Cheks before meals and at bedtime with sliding scale coverage 6. Diabetic neuropathy ~patient previously on gabapentin 7. Chronic pain syndrome ~Patient is followed by Dr. Basali; on scheduled TIR at home did continue 8. Dyslipidemia ~Previously on statin therapy has been weaned off 9. Depression with anxiety ~currently not on any medications 10. Tobacco dependence ~counseled on cessation, offered nicotine patch for tobacco cravings 11. DVT prophylaxis ~SC heparin Advance planning; did discuss with the patient who was previously under palliative care, regarding advanced directives as well as CODE STATUS. Did explain the various scenarios involved ( FULL CODE, DNR CCA, DNR CCA with no intubation, and DNR CC and what each meant) patient elected remain full code with intubation and CPR if needed. Order was placed. Time spent on discussion 18 minutes. Clinical Impression(s) from Imaging Studies Abdomen/Pelvis CT 09/28/19 14:40 IMPRESSION: Moderate to large volume ascites fluid however, there appears to be circumferential wall thickening and pericolonic fat stranding of the ascending colon suggesting colitis. Remainder of the colon appears within normal limits. Normal appendix Electronically Signed: Clyde Jones DO at 17:27 EST Tel , Service support , Code Visit Inpatient E&M: 62664 Subs Hosp L2
--- NOTE | 2019-09-30 08:00 | US_ITS ---
PROCEDURE: Ultrasound guided paracentesis. DATE OF EXAMINATION: September 30, 2019. INDICATION: Female, 59 years old. Ascites. PHYSICIAN: Jakob Hirsch M.D. TECHNIQUE: The risks, benefits, and alternatives to the procedure were explained to the patient. The specific risks of bleeding, infection, and damage to bowel were detailed and accepted. Witnessed informed consent was obtained. The abdomen was ultrasonographically surveyed. An appropriate pocket of fluid was identified at the left lower quadrant. The skin were cleaned and prepped in the usual sterile fashion. Using ultrasound guidance, the peritoneal cavity was accessed with a 5-Thai paracentesis needle/catheter system. The trocar was removed. A total of 7370 ml of zafar-colored fluid were removed from the peritoneal cavity. The catheter was removed and a sterile dressing was applied. The procedure was well tolerated. US/Paracentesis with US IMPRESSION: Ultrasound guided paracentesis. Electronically Signed: Jakob Hirsch, at 15:25 EST , Service support ,
[2019-09-30] MEDS: Lactulose 20 GM/30 ML UDC PO ×2 (09:06→21:13)
[2019-09-30] MEDS: Pantoprazole Sodium 40 MG Tablet PO (09:06)
[2019-09-30] MEDS: Spironolactone 25 MG Tablet PO (09:06)
--- NOTE | 2019-09-30 11:14 | CASEMGMT ---
RN CM Assessment Presentation: Acute colitis, hx of Liver cirrhosis, paracentesis 2 days ago Intro role of CM and purpose of RN CM assessment to patient. Demographics, PCP and Pharmacy verified. Pt is awake, alert,able t participate in assessment. States she lives in [facility], one floor. PCP: Dr. Rosenthal Specialists: Dr. Castañeda, cardiology; Dr. Luke, podiatry, Dr. Martinez, pain management Preferred [facility]acy: [facility] Insurance: [facility] Prescription Benefit: yes LNOK: Friend, Ale Dyer Living Arrangements: one story apartment. Pt functions @ W/C level in apartment. States she completes ADL's independently. No nursing or aides coming to home. Wears boot on foot. Has equipment at home. Able to ambulate short distances. Friend assists with laundry, shopping. Pt denies any needs on dc at this time. Transportation: Pt uses [employer] for transportation needs. DME: wheel chair, manual wheelchair, toilet side rails, shower chair. HHC/SNF: pt had been @ [facility] in past Patient DC goals: Home DC PLAN: Home. Reviewed PT/OT notes. OT not recommended. Discussed PT on dc. Pt feels she is @ baseline and is declining. Keke PECKN RN ACM
[2019-09-30] MEDS: proMETHazine 25 MG Tablet PO ×2 (11:33→19:24)
[2019-09-30] MEDS: Insulin Lispro 100 UNIT/ML INSULN.PEN SC ×3 (11:33→21:18)
[2019-09-30 11:40] LABS: Bedside Glucose 208 mg/dL (70-110)
--- NOTE | 2019-09-30 13:26 | NURSING ---
Called to room by RUBY SOFTWARE DEVELOPER who stated patient felt hot, lightheaded and faint prior to getting up to go to bathroom. Vitals assessed, blood sugar 199. The patient's room temperature was hot and was turned down at this time. The patient additionally reported she was just so upset about her visit w/ the palliative social media campaign manager that she became distraught and her body just gave out on her Patient safely assisted to the bathroom with x2 assist and a wheelchair and back to bed. The patient was able to stand and pivot without assistance but 2 staff members were used for safety. The patient stated she felt better and that the feeling had passed.
[2019-09-30 13:51] LABS: Bedside Glucose 199 mg/dL (70-110)
[2019-09-30 14:56] LABS: Cytology, Body Fluid / CSF SEE PATHOLOGY REPORT
--- NOTE | 2019-09-30 14:59 | NURSING ---
Report called to GARY Fernandes from GARY Arceo. Informed 7370mL drained, sent off for lab analysis. GARY Arceo also made suggestion to patient and GARY Fernandes of talking to hospitalist regarding fluid restrictions since pt was drained on 09/26/19 in ED resulting in 6500mL drained. Pt is scheduled for another paracentesis on 10/07/19 as an outpatient.
[2019-09-30 15:49] LABS: Body Fluid Mononuclear WBC # 0.342 10^3/uL; Body Fluid Mononuclear WBC % 98.5 %; Body Fluid Polynuclear WBC # 0.005 10^3/uL; Body Fluid Polynuclear WBC % 1.5 %; Body Fluid Total Cells Counted 0.408 10^3/ul; Red Cell Count/Body Fluid 0.006 10^6/ul; White Blood Count/Body Fluid 0.347 10^3/uL
--- NOTE | 2019-09-30 15:56 | PCM.PN.BLA ---
Progress Note Patient Rocephin dose was adjusted to treat SBP since WBC count and ascitic fluid was greater than 250/mm3 (consistent with bacterial peritonitis) STROKE Vital Signs/Narrative: Vital Signs Temp Pulse Pulse Pulse Pulse Pulse Resp 09/30/19 15:31 98.8 F 80 18 09/30/19 14:05 81 83 81 78 09/30/19 13:26 99 F 86 18 Resp Resp Resp Resp BP BP BP 09/30/19 15:31 103/35 L 09/30/19 14:05 16 16 16 16 145/58 H 148/58 H 09/30/19 13:26 102/83 H BP BP Pulse Ox 09/30/19 15:31 98 09/30/19 14:05 153/60 H 132/45 H 09/30/19 13:26 97
[2019-09-30] MEDS: metroNIDAZOLE 500 MG Tablet PO ×2 (16:51→21:13)
[2019-09-30 17:12] LABS: Appearance/Body Fluid CLEAR; Auto B Fluid Analyzer BKGD Ct COUNTS W/IN LIMITS (W/IN LIMITS); Color/Body Fluid YELLOW; Source- Body Fluid ASCITES FLUID
[2019-09-30 17:16] LABS: Bedside Glucose 176 mg/dL (70-110)
[2019-09-30 17:27] LABS: Body Fluid QC Type(s) BFQ1; Lymphocytes 55 %; Monocytes 4 %; Neutrophil (Segs) 5 %; Other Cell Type/BF 36 %
[2019-09-30 20:25] LABS: Bedside Glucose 236 mg/dL (70-110)
[2019-09-30] MEDS: Heparin Injection (Vial) 5,000 UNIT/ML VIAL 5000 UNIT SC (21:13)
[2019-10-01 02:19] VITALS: BP 99/52; PULSE 90; RESP 17; TEMP 37.5; O2SAT 98
[2019-10-01] MEDS: proMETHazine 25 MG Tablet PO ×2 (02:25→11:40)
[2019-10-01] MEDS: metroNIDAZOLE 500 MG Tablet PO ×3 (04:56→21:12)
[2019-10-01] MEDS: oxyCODONE 5 MG Tablet 10 MG PO ×3 (05:00→18:11)
[2019-10-01] MEDS: Insulin Lispro 100 UNIT/ML INSULN.PEN SC ×4 (06:46→21:13)
[2019-10-01 06:50] LABS: Bedside Glucose 175 mg/dL (70-110)
[2019-10-01 06:54] LABS: Absolute Lymphocyte Count 2.14 X10^3/uL (0.83-4.51); Absolute Neutrophil Count 3.2 X10^3/uL (2.0-7.7); Basophil# 0.04 X10^3/uL; Basophil% 0.7 % (0-1); Eosinophil# 0.17 X10^3/uL; Eosinophils% 2.8 % (0-5); Hematocrit 35.8 % (37-47); Hemoglobin 11.8 g/dL (12.0-15.0); Lymphocyte # 2.14 X10^3/ul (4.0); Mean Corpuscular Hgb 31.6 pg (27.0-32.0); Mean Corpuscular Volume 95.7 fL (81-99); Mean Platelet Vol. 10.7 fl (6.2-12.0); Monocyte# 0.58 X10^3/uL; Monocyte% 9.5 % (0-10); NRBC Flagged by Analyzer 0 % (0-5); Neutrophil # 3.16 X10^3/uL (2.7-7.7); Neutrophil % 51.7 % (47-70); Platelet Count 143 K/mm3 (150-450); RBC Distribution Width CV 14.3 % (11.6-14.6); RBC Distribution Width SD 50.4 fl (35.1-43.9); Red Blood Count 3.74 M/mm3 (4.2-5.4); White Blood Count 6.1 K/mm3 (4.4-11.0)
--- NOTE | 2019-10-01 07:41 | PN_ITS ---
Reason for Visit: abdominal pain Subjective: Paracentesis performed the day prior was consistent with SBP patient started on Rocephin 1 g every 12 Objective: GENERAL: cooperative HEENT: Atraumatic; EYES; Anicteric, Normal Conjunctiva NECK; supple, normal thyroid, RESPIRATORY: Diminished to auscultation CARDIOVASCULAR: Regular S1 S2, GI: Distended with shifting dullness : No Renal angle tenderness; EXTREMITIES: No edema, no clubbing, MUSCULOSKELETAL: no muscle waisting NEURO: Awake; no lateralizing signs. SKIN: No Rash PSYCH; Flat affect Vitals/I&O's: Vital Signs Temp Pulse Resp BP Pulse Ox 99.5 F H 90 17 99/52 L 98 10/01/19 02:19 10/01/19 02:19 10/01/19 02:19 10/01/19 02:19 10/01/19 02:19 Oxygen Delivery Method [4] Room Air Oxygen Delivery Method [3] Room Air Oxygen Delivery Method [2] Room Air Oxygen Delivery Method [1 ( Room Air Initial Baseline)] Oxygen Delivery Method Room Air Weight: 78 kg Body Mass Index (BMI) 29.5 Finger Stick Blood Glucose 197 Intake and Output for Last 24 Hours 09/29/19 09/30/19 10/01/19 23:59 23:59 23:59 Intake Total 1180 / 1180 1650 / 1650 1120 / 1120 Output Total 7370 / 7370 Balance 1180 / 1180 -5720 / -5720 1120 / 1120 Microbiology Past 72 Hours 09/30/19 14:15 Fluid - Ascites Gram Stain - Final Laboratory Results 09/30/19 11:32: POC Glucose 208 H 09/30/19 13:20: POC Glucose 199 H 09/30/19 14:15: Fluid Source ASCITES FLUID, Fluid Color YELLOW, Fluid Appearance CLEAR, Fluid WBC 0.347, Fluid RBC 0.006, Fluid Tot Cell Count 0.408 H, Fld Polynuclear WBCs # 0.005, Fld Polynuclear WBCs % 1.5, Fluid Mononuclear WBCs 0.3 42, Fld Mononuclear WBCs % 98.5, Fluid Neutrophils 5, Fluid Lymphocytes 55, Fluid Monocytes 4, Fluid Other Cells 36, Fl Pathologist Comment May follow, Fluid Comment 2 SEE COMMENT 09/30/19 14:15: Miscellaneous Cytology Pending 09/30/19 16:51: POC Glucose 176 H 09/30/19 20:21: POC Glucose 236 H 10/01/19 04:55: WBC 6.1, RBC 3.74 L, Hgb 11.8 L, Hct 35.8 L, MCV 95.7, MCH 31.6, MCHC 33.0, RDW Std Deviation 50.4 H, RDW Coeff of Bnonie 14.3, Plt Count 143 L, MPV 10.7, Immature Gran % (Auto) 0.300, Neut % (Auto) 51.7, Lymph % (Auto) 35.0, Coke % (Auto) 9.5, Eos % (Auto) 2.8, Baso % (Auto) 0.7, Absolute Neuts (auto) 3.2, Absolute Lymphs (auto) 2.14, Nucleated RBC % 0 10/01/19 04:55: Sodium Pending, Potassium Pending, Chloride Pending, Carbon Dioxide Pending, Anion Gap Pending, BUN Pending, Creatinine Pending, Est GFR (MDRD) Af Amer Pending, Est GFR (MDRD) Non-Af Pending, BUN/Creatinine Ratio Pending, Glucose Pending, Calcium Pending 10/01/19 06:45: POC Glucose 175 H Current Medications Dextrose (D50w Syringe) 0 gm IV X1 PRN; Protocol PRN Reason: Hypoglycemia Glucagon () 1 mg IM .X1 PRN PRN Reason: Hypoglycemia Heparin Sodium (Porcine) (Heparin Na) 5,000 unit SC Q12 [facility] Last Admin: 09/30/19 21:13 Dose: 5,000 unit Documented by: Ceftriaxone Sodium 2 gm/ (Sodium Chloride) 50 mls @ 100 mls/hr IV Q12 [facility] Last Infusion: 09/30/19 21:53 Dose: Infused Documented by: Insulin Human Lispro (Humalog Kwikpen (Bkc)) 0 unit SC ACHS [facility]; Protocol Last Admin: 10/01/19 06:46 Dose: 1 u Documented by: Lactulose (Chronulac, Cephulac) 20 gm PO BID [facility] Last Admin: 09/30/19 21:13 Dose: 20 gm Documented by: Metronidazole (Flagyl) 500 mg PO TID [facility] Last Admin: 10/01/19 04:56 Dose: 500 mg Documented by: Morphine Sulfate () 1 - 2 mg IV Q3H PRN PRN PRN Reason: Pain Score 6-10/10 Last Admin: 09/28/19 22:15 Dose: 2 mg Documented by: Nicotine (Nicoderm Cq (Pbkc)) 21 mg TRANSDERM. DAILY [facility] Last Admin: 09/30/19 09:06 Dose: 21 mg Documented by: Oxycodone HCl (Oxyir) 10 mg PO Q4H PRN PRN PRN Reason: Pain Score 4-10/10 Last Admin: 10/01/19 05:00 Dose: 10 mg Documented by: Pantoprazole Sodium (Protonix) 40 mg PO DAILY [facility] Last Admin: 09/30/19 09:06 Dose: 40 mg Documented by: Promethazine HCl (Phenergan) 12.5 mg IV Q6H PRN PRN PRN Reason: NAUSEA/VOMITING Last Admin: 09/29/19 23:05 Dose: 12.5 mg Documented by: Promethazine HCl (Phenergan Tablet) 25 mg PO Q6H PRN PRN PRN Reason: NAUSEA Last Admin: 10/01/19 02:25 Dose: 25 mg Documented by: Sodium Chloride () 10 - 40 ml IV UD PRN PRN Reason: SALINE FLUSH Last Admin: 09/30/19 06:15 Dose: 20 ml Documented by: Sodium Chloride () 10 - 40 ml IV UD PRN PRN Reason: Midline Flush Sodium Chloride (0.9% Nacl (Sterile) Posiflush) 10 - 40 ml IV UD PRN PRN Reason: Port access or dressing change Spironolactone (Aldactone) 25 mg PO DAILY [facility] Last Admin: 09/30/19 09:06 Dose: 25 mg Documented by: Medical Necessity - Tobacco Use Smoking Status: Current every day smoker Tobacco Use: Cigarettes Assessment/Plan Patient is a 59-year-old lady with history of cirrhosis of the liver who presented with abdominal pain. She had apparently undergone paracentesis 2 days prior to her admission. CAT scan obtained on admission demonstrated moderate to large volume ascites as well as circumferential wall thickening and pericolonic fat stranding of the ascending colon suggesting colitis admitted to regular nursing floor for further management 1. Abdominal pain ~secondary to colitis. Patient was started on Rocephin and Flagyl admitted to regular nursing floor for further management 2. Ascites ~patient has underlying cirrhosis of the liver she underwent paracentesis on 09/26/2019. With patient presented with abdominal pain a suspicion of possible SBP was entertained empirically started on antibiotics repeat paracentesis (both diagnostic and therapeutic) ordered. In the meantime is on empiric antibiotic therapy with Rocephin ?09/30/2019 Complains of significant abdominal pain pain regimen was adjusted. Patient scheduled to undergo diagnostic and therapeutic paracentesis ?10/01/2019:Paracentesis performed the day prior was demonstrated cell counts of 347 consistent with SBP patient started on Rocephin 1 g every 12 3. Cirrhosis of the liver ~with ascites management as discussed above 4. Essential hypertension ~patient was previously on antihypertensives which was subsequently weaned off following significant improvement in her blood pressure by her PCP 5. Diabetes mellitus type 2 ~Currently diet controlled patient was previously on insulin and again per patient this was weaned off by her PCP. Hemoglobin A1c in March 2019 was reported to be 8 point 4 repeat hemoglobin A1c ordered. Patient was also placed on Accu-Cheks before meals and at bedtime with sliding scale coverage 6. Diabetic neuropathy ~patient previously on gabapentin 7. Chronic pain syndrome ~Patient is followed by Dr. Martinez; on scheduled TIR at home did continue 8. Dyslipidemia ~Previously on statin therapy has been weaned off 9. Depression with anxiety ~currently not on any medications 10. Tobacco dependence ~counseled on cessation, offered nicotine patch for tobacco cravings 11. DVT prophylaxis ~SC heparin Code Visit Inpatient E&M: 17872 Subs Hosp L2
[2019-10-01 08:15] LABS: Anion Gap 6 (5-15); BUN 23 mg/dL (7-18); BUN/Creat Ratio 18.7 RATIO (10-20); Calcium,Total 7.6 mg/dL (8.5-10.1); Chloride 109 mmol/L (98-107); Creatinine, Serum 1.23 mg/dL (0.55-1.02); EST Glomerular Filtration Rate 47 mL/min (>60); Est Glom Filt Rate - Afr Amer 57 mL/min (>60); Estimated Creatinine Clearance 41.48 ml/min; Glucose 197 mg/dL (74-106); Potassium 4.2 mmol/L (3.5-5.1); Sodium Level 138 mmol/L (136-145)
[2019-10-01 08:15] LABS: Protein, Body Fluid 1.8 g/dL (Not Establ.)
[2019-10-01 08:21] LABS: Glucose, Body Fluid 200 mg/dL (40-70)
[2019-10-01] MEDS: Pantoprazole Sodium 40 MG Tablet PO (08:29)
[2019-10-01] MEDS: Heparin Injection (Vial) 5,000 UNIT/ML VIAL 5000 UNIT SC ×2 (08:29→21:12)
[2019-10-01 08:30] VITALS: BP 112/57; PULSE 80; RESP 18; TEMP 36.7; O2SAT 98
[2019-10-01] MEDS: Lactulose 20 GM/30 ML UDC PO ×2 (08:30→21:12)
[2019-10-01] MEDS: Spironolactone 25 MG Tablet PO (08:30)
[2019-10-01] MEDS: 0.9% Saline Lock 10 ML Syringe IV (09:18)
[2019-10-01] MEDS: Petrolatum,White 5 GM PACKET 1 APPLIC TOPICAL (11:39)
[2019-10-01 11:46] LABS: Bedside Glucose 158 mg/dL (70-110)
[2019-10-01 11:54] LABS: Pathologist Comment/Body Fluid Reviewed
[2019-10-01 13:40] VITALS: BP 124/59; PULSE 82; RESP 16; TEMP 36.8; O2SAT 99
--- NOTE | 2019-10-01 13:40 | CASEMGMT ---
Social Work Note Pt has PASSPORT - Waiver services and CM is Mariah Campo. Per Mariah pt has Home Meals, Emergency Response button and is hard to staff for Home Health Aides. Roberta Rojas SALES ACCOUNT LEADER, SLIDE MAKER
[2019-10-01] MEDS: LORazepam 0.5 MG Tablet PO ×2 (13:57→21:19)
[2019-10-01 17:06] LABS: Bedside Glucose 186 mg/dL (70-110)
[2019-10-01 20:00] VITALS: BP 103/53; PULSE 76; RESP 18; TEMP 36.8; O2SAT 99
[2019-10-01 21:21] LABS: Bedside Glucose 209 mg/dL (70-110)
[2019-10-02] MEDS: oxyCODONE 5 MG Tablet 10 MG PO ×3 (01:14→14:06)
[2019-10-02 02:13] VITALS: BP 120/49; PULSE 83; RESP 19; TEMP 37.1; O2SAT 97
[2019-10-02] MEDS: metroNIDAZOLE 500 MG Tablet PO ×2 (05:08→14:02)
[2019-10-02 05:47] LABS: Absolute Lymphocyte Count 2.29 X10^3/uL (0.83-4.51); Absolute Neutrophil Count 3.4 X10^3/uL (2.0-7.7); Basophil# 0.05 X10^3/uL; Basophil% 0.8 % (0-1); Eosinophil# 0.25 X10^3/uL; Eosinophils% 3.8 % (0-5); Hematocrit 35.7 % (37-47); Lymphocyte # 2.29 X10^3/ul (4.0); Lymphocyte % 34.9 % (19-41); Mean Corp Hgb Conc 33.6 g/dL (32-36); Mean Corpuscular Hgb 32.2 pg (27.0-32.0); Mean Corpuscular Volume 95.7 fL (81-99); Mean Platelet Vol. 9.9 fl (6.2-12.0); Monocyte# 0.52 X10^3/uL; Monocyte% 7.9 % (0-10); NRBC Flagged by Analyzer 0 % (0-5); Neutrophil # 3.44 X10^3/uL (2.7-7.7); Neutrophil % 52.4 % (47-70); Platelet Count 148 K/mm3 (150-450); RBC Distribution Width CV 14.2 % (11.6-14.6); RBC Distribution Width SD 50.2 fl (35.1-43.9); Red Blood Count 3.73 M/mm3 (4.2-5.4); White Blood Count 6.6 K/mm3 (4.4-11.0)
[2019-10-02 05:58] LABS: Anion Gap 6 (5-15); BUN 29 mg/dL (7-18); BUN/Creat Ratio 20.9 RATIO (10-20); Calcium,Total 7.5 mg/dL (8.5-10.1); Chloride 109 mmol/L (98-107); Creatinine, Serum 1.39 mg/dL (0.55-1.02); EST Glomerular Filtration Rate 41 mL/min (>60); Est Glom Filt Rate - Afr Amer 50 mL/min (>60); Glucose 159 mg/dL (74-106); Potassium 4.2 mmol/L (3.5-5.1); Sodium Level 137 mmol/L (136-145)
[2019-10-02] MEDS: Insulin Lispro 100 UNIT/ML INSULN.PEN SC ×2 (06:48→12:43)
[2019-10-02 06:56] LABS: Bedside Glucose 152 mg/dL (70-110)
[2019-10-02 07:22] VITALS: O2SAT 93
--- NOTE | 2019-10-02 07:56 | DCINST_ITS ---
- Discharge Diagnoses Current Active Problems: Current Active and Chronic Problems (Last Updated 09/28/19 @ 18:43 by Xochitl Pittman MD) Liver cirrhosis (Chronic) You will use the following diet at home:: Calorie/Carbohydrate Controlled (specify 1200, 1400, etc) - 1800 Your food should be the consistency of: Regular Discharge Activity: May not drive while taking narcotic pain medications. Allergies/Adverse Reactions: Allergies clindamycin [From Cleocin] Allergy (Verified 09/28/19 14:12) Itching Sulfa (Sulfonamide Antibiotics) Allergy (Verified 09/28/19 14:12) Itching ondansetron [From Zofran (as hydrochloride)] Adverse Reaction (Verified 09/28/19 14:12) Nausea Medications to take at Discharge proMETHazine tablet [Phenergan tablet] 25 mg PO Q6H PRN PRN 06/11/18 Furosemide [Lasix] 40 mg PO DAILY #30 tab 10/02/19 Lactulose [Chronulac] 20 gm PO DAILY #30 udc 10/02/19 Levofloxacin [Levaquin] 500 mg PO DAILY #7 tab 10/02/19 Oxycodone [Oxyir] 5 mg PO BID 3 Days #6 tab 10/02/19 Spironolactone [Aldactone] 25 mg PO DAILY #30 tab 10/02/19 The following prescriptions were given: Spironolactone [Aldactone] 25 mg PO DAILY #30 tab Transmission Status: Received by [facility] Lactulose [Chronulac] 20 gm PO DAILY #30 udc Transmission Status: Received by [facility] Furosemide [Lasix] 40 mg PO DAILY #30 tab Transmission Status: Pending to [facility] Levofloxacin [Levaquin] 500 mg PO DAILY #7 tab Transmission Status: Pending to [facility] Oxycodone [Oxyir] 5 mg PO BID 3 Days #6 tab Transmission Status: Received by [facility] Primary Care Physician: Froilan Rosenthal Chi, MD [Primary Care Provider] - Please follow up with your Primary Care Physician in: in 5-7 days Test Results: Test results from this visit will be discussed in further detail at your follow- up appointment, if applicable. Please Follow Up With: Dean Martinez MD When: in 1-2 days Proposed Discharge Date: 10/02/19
--- NOTE | 2019-10-02 07:57 | PCM.DC.SUM ---
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 Luke. Abnormal EKG (Chronic) ekg's indicating possible previous inferior infarct HTN (hypertension) (Chronic) Debility (Chronic) Type II diabetes mellitus (Chronic) Peripheral neuropathy (Chronic) Tobacco use disorder (Chronic) Obesity (Chronic) Hospital Course and Treatment Imaging Results: Clinical Impression(s) from Imaging Studies Abdomen/Pelvis CT 09/28/19 14:40 IMPRESSION: Moderate to large volume ascites fluid however, there appears to be circumferential wall thickening and pericolonic fat stranding of the ascending colon suggesting colitis. Remainder of the colon appears within normal limits. Normal appendix Electronically Signed: Clyde Jones DO at 17:27 EST Tel , Service support , Paracentesis Ultrasound 09/30/19 08:00 IMPRESSION: Ultrasound guided paracentesis. Electronically Signed: Jakob Hirsch, at 15:25 EST , Service support , Operations: - - left tibiocalcaneal and talonavicular arthrodesis Summary of Care Provided: The patient is a 59 year old F [] Patient is a 59-year-old lady with history of cirrhosis of the liver who presented with abdominal pain. She had apparently undergone paracentesis 2 days prior to her admission. CAT scan obtained on admission demonstrated moderate to large volume ascites as well as circumferential wall thickening and pericolonic fat stranding of the ascending colon suggesting colitis admitted to regular nursing floor for further management 1. Abdominal pain ~secondary to colitis. Patient was started on Rocephin and Flagyl admitted to regular nursing floor for further management 2. Ascites ~patient has underlying cirrhosis of the liver she underwent paracentesis on 09/26/2019. With patient presented with abdominal pain a suspicion of possible SBP was entertained empirically started on antibiotics repeat paracentesis (both diagnostic and therapeutic) ordered. In the meantime is on empiric antibiotic therapy with Rocephin. Paracentesis performed on 09/30/2019 demonstrated cell counts of 347 consistent with SBP patient started on Rocephin 1 g every 12 cultures sent came back negative patient was discharged home on Levaquin for 7 additional days 3. Cirrhosis of the liver ~with ascites management as discussed above she underwent. Was discharged home on lactulose Lasix as well as Aldactone. 4. Essential hypertension ~patient was previously on antihypertensives which was subsequently weaned off following significant improvement in her blood pressure by her PCP 5. Diabetes mellitus type 2 ~Currently diet controlled patient was previously on insulin and again per patient this was weaned off by her PCP. Hemoglobin A1c in March 2019 was reported to be 8 point 4 repeat hemoglobin A1c ordered. Patient was also placed on Accu-Cheks before meals and at bedtime with sliding scale coverage 6. Diabetic neuropathy ~patient previously on gabapentin 7. Chronic pain syndrome ~Patient is followed by Dr. Martinez; on scheduled OXYIR at home did continue 8. Dyslipidemia ~Previously on statin therapy has been weaned off 9. Depression with anxiety ~currently not on any medications 10. Tobacco dependence ~counseled on cessation, offered nicotine patch for tobacco cravings 11. DVT prophylaxis ~SC heparin Patient Problems: Active and Suspected Problems (Last Updated 09/28/19 @ 18:43 by Xochitl Pittman MD) Peritonitis (acute) generalized (Acute) Objective: GENERAL: cooperative HEENT: Atraumatic; EYES; Anicteric, Normal Conjunctiva NECK; supple, normal thyroid, RESPIRATORY: Diminished to auscultation CARDIOVASCULAR: Regular S1 S2, MUSCULOSKELETAL: no muscle waisting NEURO: Awake; no lateralizing signs. SKIN: No Rash PSYCH; Flat affect - Physical Exam Vitals/I&O's: Vital Signs Temp Pulse Resp BP Pulse Ox 98.8 F 83 19 H 120/49 L 97 12/04/19 02:13 10/02/19 02:13 10/02/19 02:13 10/02/19 02:13 10/02/19 02:13 Oxygen Delivery Method [4] Room Air Oxygen Delivery Method [3] Room Air Oxygen Delivery Method [2] Room Air Oxygen Delivery Method [1 ( Room Air Initial Baseline)] Oxygen Delivery Method Room Air Weight: 78 kg Body Mass Index (BMI) 29.5 Finger Stick Blood Glucose 197 Intake and Output for Last 24 Hours 09/30/19 10/01/19 10/02/19 23:59 23:59 23:59 Intake Total 1650 / 1650 2240 / 2240 240 / 240 Output Total 7370 / 7370 Balance -5720 / -5720 2240 / 2240 240 / 240 Microbiology Past 72 Hours 09/30/19 14:15 Fluid - Ascites Gram Stain - Final 09/30/19 14:15 Fluid - Ascites Body Fluid Culture - Preliminary No growth-Final to follow Laboratory Results 09/30/19 14:15: Fluid Total Protein 1.8 09/30/19 14:15: Fluid Glucose 200 H 09/30/19 14:15: Fl Pathologist Comment Reviewed 10/01/19 04:55: Sodium 138, Potassium 4.2, Chloride 109 H, Carbon Dioxide 23.0, Anion Gap 6, BUN 23 H, Creatinine 1.23 H, Estim Creat Clear Calc 41.48, Est GFR (MDRD) Af Amer 57 L, Est GFR (MDRD) Non-Af 47 L, BUN/Creatinine Ratio 18.7, Glucose 197 H, Calcium 7.6 L 10/01/19 11:37: POC Glucose 158 H 10/01/19 16:58: POC Glucose 186 H 10/01/19 21:11: POC Glucose 209 H 10/02/19 05:08: WBC 6.6, RBC 3.73 L, Hgb 12.0, Hct 35.7 L, MCV 95.7, MCH 32.2 H, MCHC 33.6, RDW Std Deviation 50.2 H, RDW Coeff of Bonnie 14.2, Plt Count 148 L, MPV 9.9, Immature Gran % (Auto) 0.200, Neut % (Auto) 52.4, Lymph % (Auto) 34.9, [place] % (Auto) 7.9, Eos % (Auto) 3.8, Baso % (Auto) 0.8, Absolute Neuts (auto) 3.4, Absolute Lymphs (auto) 2.29, Nucleated RBC % 0 10/02/19 05:08: Sodium 137, Potassium 4.2, Chloride 109 H, Carbon Dioxide 22.0, Anion Gap 6, BUN 29 H, Creatinine 1.39 H, Estim Creat Clear Calc 36.70, Est GFR (MDRD) Af Amer 50 L, Est GFR (MDRD) Non-Af 41 L, BUN/Creatinine Ratio 20.9 H, Glucose 159 H, Calcium 7.5 L 10/02/19 06:48: POC Glucose 152 H Current Medications Dextrose (D50w Syringe) 0 gm IV X1 PRN; Protocol PRN Reason: Hypoglycemia Glucagon () 1 mg IM .X1 PRN PRN Reason: Hypoglycemia Heparin Sodium (Porcine) (Heparin Na) 5,000 unit SC Q12 [facility] Last Admin: 10/01/19 21:12 Dose: 5,000 unit Documented by: Ceftriaxone Sodium 2 gm/ (Sodium Chloride) 50 mls @ 100 mls/hr IV Q12 [facility] Last Infusion: 10/01/19 21:41 Dose: Infused Documented by: Insulin Human Lispro (Humalog Kwikpen (Bkc)) 0 unit SC ACHS [facility]; Protocol Last Admin: 10/02/19 06:48 Dose: 1 u Documented by: Lactulose (Chronulac, Cephulac) 20 gm PO BID [facility] Last Admin: 10/01/19 21:12 Dose: 20 gm Documented by: Lorazepam (Ativan) 0.5 mg PO Q6H PRN PRN PRN Reason: ANXIETY/AGITATION Last Admin: 10/01/19 21:19 Dose: 0.5 mg Documented by: Metronidazole (Flagyl) 500 mg PO TID [facility] Last Admin: 10/02/19 05:08 Dose: 500 mg Documented by: Morphine Sulfate () 1 - 2 mg IV Q3H PRN PRN PRN Reason: Pain Score 6-10/10 Last Admin: 09/28/19 22:15 Dose: 2 mg Documented by: Nicotine (Nicoderm Cq (Pbkc)) 21 mg TRANSDERM. DAILY [facility] Last Admin: 10/01/19 08:29 Dose: 21 mg Documented by: Oxycodone HCl (Oxyir) 10 mg PO Q4H PRN PRN PRN Reason: Pain Score 4-10/10 Last Admin: 10/02/19 01:14 Dose: 10 mg Documented by: Pantoprazole Sodium (Protonix) 40 mg PO DAILY [facility] Last Admin: 10/01/19 08:29 Dose: 40 mg Documented by: Petrolatum (Petrolatum) 1 applic TOPICAL BID PRN PRN; Protocol PRN Reason: RASH/TOPICAL IRRITATION Last Admin: 10/01/19 11:39 Dose: 1 applic Documented by: Promethazine HCl (Phenergan) 12.5 mg IV Q6H PRN PRN PRN Reason: NAUSEA/VOMITING Last Admin: 09/29/19 23:05 Dose: 12.5 mg Documented by: Promethazine HCl (Phenergan Tablet) 25 mg PO Q6H PRN PRN PRN Reason: NAUSEA Last Admin: 10/01/19 11:40 Dose: 25 mg Documented by: Sodium Chloride () 10 - 40 ml IV UD PRN PRN Reason: SALINE FLUSH Last Admin: 10/01/19 09:18 Dose: 10 ml Documented by: Sodium Chloride () 10 - 40 ml IV UD PRN PRN Reason: Midline Flush Sodium Chloride (0.9% Nacl (Sterile) Posiflush) 10 - 40 ml IV UD PRN PRN Reason: Port access or dressing change Spironolactone (Aldactone) 25 mg PO DAILY [facility] Last Admin: 10/01/19 08:30 Dose: 25 mg Documented by: Discharge Diet: 1800 Calorie Control Diet Discharge Activity: May not drive while taking narcotic pain medications. Home Medications: Medications to take at Discharge proMETHazine tablet [Phenergan tablet] 25 mg PO Q6H PRN PRN 06/11/18 Furosemide [Lasix] 40 mg PO DAILY #30 tab 10/02/19 Lactulose [Chronulac] 20 gm PO DAILY #30 udc 10/02/19 Levofloxacin [Levaquin] 500 mg PO DAILY #7 tab 10/02/19 Oxycodone [Oxyir] 5 mg PO BID 3 Days #6 tab 10/02/19 Spironolactone [Aldactone] 25 mg PO DAILY #30 tab 10/02/19 Following Prescrptions Were Given to Patient: Spironolactone [Aldactone] 25 mg PO DAILY #30 tab Transmission Status: Received by [facility] Lactulose [Chronulac] 20 gm PO DAILY #30 udc Transmission Status: Received by [facility] Furosemide [Lasix] 40 mg PO DAILY #30 tab Transmission Status: Pending to [facility] Levofloxacin [Levaquin] 500 mg PO DAILY #7 tab Transmission Status: Pending to [facility] Oxycodone [Oxyir] 5 mg PO BID 3 Days #6 tab Transmission Status: Received by [facility] Primary Care Physician: Froilan Rosenthal Chi, MD [Primary Care Provider] - Please follow up with your Primary Care Physician in: in 5-7 days Please Follow Up With: Dean Martinez MD When: in 1-2 days Disposition: Home Minutes spent on discharge:: 35 Patient Condition:: Stable Medical Necessity - Tobacco Use Smoking Status: Current every day smoker Tobacco Use: Cigarettes Meaningful Use Info Meaningful Use Diagnoses (Choose all that apply): None applicable Code Visit Inpatient E&M: 22530 Disch Hosp
[2019-10-02 08:13] VITALS: BP 103/54; PULSE 86; RESP 18; TEMP 36.5; O2SAT 98
[2019-10-02] MEDS: Pantoprazole Sodium 40 MG Tablet PO (08:44)
[2019-10-02] MEDS: Heparin Injection (Vial) 5,000 UNIT/ML VIAL 5000 UNIT SC (08:47)
[2019-10-02] MEDS: Spironolactone 25 MG Tablet PO (08:48)
[2019-10-02] MEDS: 0.9% Saline Lock 10 ML Syringe IV (08:49)
[2019-10-02] MEDS: proMETHazine 25 MG Tablet PO (08:58)
--- NOTE | 2019-10-02 09:58 | CASEMGMT ---
Social Work Note Pt is discharging home today. WILBER placed a call to pt's CM Mariah Campo at [facility] and left her a message updating her pt will be discharged home today. WILBER faxed discharge paperwork to [facility]. Plan: Home with resumption of PASSPORT Roberta Rojas LITIGATION SPECIALIST, PROFESSOR OF THEATRE
[2019-10-02 11:55] LABS: Bedside Glucose 173 mg/dL (70-110)
[2019-10-02 13:58] VITALS: BP 118/70; PULSE 79; RESP 18; TEMP 36.8; O2SAT 96
--- NOTE | 2019-10-03 15:41 | CASEMGMT ---
GARY HOBBS Discharge Follow-Up Phone Call. Kesha: Opal Strata: 4 Discharge Date: 10/02/19 Adm Dx: Abdominal pain, colitis, ascites Call to pt to inquire about how she has been doing since being discharged from the hospital. Pt stated, Sweetheart, I'm terrible. I can hardly breath. I feel so rotten. Pt stated that she has a sharp pain under her breast that goes around to her back when she takes a deep breath. She reports that this started last evening. Pt advised to return to the ER at this time. Pt stated, I appreciate your concern, but I think I'm just going to lay down for awhile. She also reports that she did not pick up attendant any of her medications that she was discharged home on yesterday, stating that her friend was going to be getting them for her tomorrow. GARY HOBBS discussed with pt the importance of getting these medications as soon as possible, as she was discharged home on several medications that are very important for her to be taking as prescribed. Pt stated, I know, but that's when my friend is able to get them. Pt strongly advised again to return to the ER to be seen. Pt again stated, I thank you for your concern, but I'm just going to lay down for awhile and see if it gets better. GARY HOBBS again instructed pt to return to the ER and made pt aware that breathing problems can decline rapidly and stressed the importance to return to the hospital. GARY HOBBS asked pt if she had someone that could bring her in or if she would call the squad. Pt reports that she would call the squad if she decides to come to the ER. Pt again thanked GARY HOBBS for calling to check on her and does not feel that she needs any further assistance at this time and said goodbye to this GARY HOBBS before hanging up the phone. Reginald RENO RN, CM
== END 2019-10-02 14:21 | disposition home or self-care (01) | DRG 372 ==
LOC: ED 14:53 → MS3 18:57
PROVIDERS: Admitting Provider Hospitalist; Emergency Provider Emergency Medicine; Family Provider Family Medicine Geriatric Medicine; PCP Family Medicine Geriatric Medicine; Visit Provider Internal Medicine
DX: K65.0 Generalized (acute) peritonitis (principal); R18.8 Other ascites; K74.60 Unspecified cirrhosis of liver; E78.5 Hyperlipidemia, unspecified; I10 Essential (primary) hypertension; R94.31 Abnormal electrocardiogram [ECG] [EKG]; R53.81 Other malaise; E66.9 Obesity, unspecified; Z68.29 Body mass index [BMI] 29.0-29.9, adult; E11.40 Type 2 diabetes mellitus with diabetic neuropathy, unspecified; Z72.0 Tobacco use; G89.4 Chronic pain syndrome; K52.9 Noninfective gastroenteritis and colitis, unspecified; F41.8 Other specified anxiety disorders
CPT/HCPCS: 36415; 49083; 74177; 80048; 80053; 80076; 81001; 82140; 82945; 82962; 83036; 83605; 83690; 83735; 84157; 85025; 85610; 85730; 87070; 87075; 87205; 88108; 88305; 88313; 89050; 97116; 97162; 97166; 97530; 99251; 99285; J7030; Q9967; A4216; G0463; J0696

== ENCOUNTER 2019-10-03 18:12 | Inpatient (IN) | payer MEDICARE, MEDICAID, SELFPAY ==
[2019-10-03 18:11] VITALS: BMI 29.2
[2019-10-03 18:15] VITALS: BP 115/59; PULSE 100; RESP 17; TEMP 36.8; O2SAT 96; BMI 30.7
--- NOTE | 2019-10-03 19:16 | EKG12_ITS ---
Test Reason : Blood Pressure : / mmHG Vent. Rate : 088 BPM Atrial Rate : 088 BPM P-R Int : 172 ms QRS Dur : 082 ms QT Int : 346 ms P-R-T Axes : 066 -41 056 degrees QTc Int : 418 ms Normal sinus rhythm Left axis deviation Low voltage QRS Abnormal ECG Confirmed by TITI ROBERTS, CAMERON ([id number]), newspaper copy editor IVAN ALBERTO ([id number]) on 10/06/2019 10:04:00 AM Referred By: Kyree Rice Confirmed By:ETHEL WALLS MD
--- NOTE | 2019-10-03 19:19 | ED.DCSUM_ITS ---
History of Present Illness Chief Complaint: General Illness Informant: Patient Onset: Yesterday Context: Gradual Onset Timing: Continuous Narrative: Patient is a 59-year-old patient with history of cirrhosis of the liver presenting with chest tightness and shortness of breath. Patient states she was discharged from the hospital yesterday for colitis and ascites. Patient states she had 2 paracentesis while she is in the hospital and had approximately 12 L drained. She notes that when she went home last night and tried to lay down she woke up because she could not breathe. Since then she is been feeling short of breath, having chest pain and chest tightness. Patient states she saw that there is a nicotine patch on her bed and thought that may be sleeping on that is what was causing her symptoms. She notes her symptoms been persistent worsening since last night. She also notes she felt very clammy and had tingling of her fingers when she came in. Patient states she denies any history of any respiratory problems or shortness of breath. She has associated fever, nausea or vomiting. She denies any abdominal pain. She notes the swelling of her belly has stayed the same. She denies any worsening swelling of her lower extremities. She denies any associated cough. Past Medical History - Allergies and Home Meds Allergies/Adverse Reactions: Allergies clindamycin [From Cleocin] Allergy (Verified 09/28/19 14:12) Itching Sulfa (Sulfonamide Antibiotics) Allergy (Verified 09/28/19 14:12) Itching ondansetron [From Zofran (as hydrochloride)] Adverse Reaction (Verified 09/28/19 14:12) Nausea Past Medical History: - - Cirrhosis of the liver, CKD, coronary artery disease, tobacco dependence, history of colitis Surgical History: cholecystectomy, - - Amputation of the left fourth and fifth toes and metatarsals. Smoking Status: Current some day smoker - Family History Maternal Family History: Family History (Last Reviewed 01/06/19 @ 21:40 by Marta Santos) Mother CAD (coronary artery disease) Father Arthritis Brother Arthritis Review of Systems General: Denies: Chills, Fever, Sweats Eyes: Denies: Visual changes - bilaterally, Diplopia ENT: Denies: Rhinorrhea, Sore throat Cardiovascular: Reports: Chest pain. Denies: Palpitations Respiratory: Reports: Dyspnea, Orthopnea, Paroxysmal nocturnal dyspnea. Denies: Cough, Dyspnea on exertion Gastrointestinal: Denies: Abdominal pain, Nausea, Vomiting, Diarrhea, Melena, Hematochezia Genitourinary: Denies: Dysuria, Hematuria, Frequency Musculoskeletal: Denies: Back pain, Extremity Pain Skin: Denies: Rash, Wounds Neurological: Denies: Headache, Weakness, Numbness Physical Exam Vital Signs/Narrative: Vital Signs Temp Pulse Resp BP Pulse Ox 10/03/19 18:15 98.2 F 100 17 115/59 L 96 Inital Vital Signs reviewed: Yes General: Well nourished, Well developed, No Acute Distress Head: Normocephalic, Atraumatic Eyes: Perrl, EOMI ENT: Moist mucous membranes, No rhinorrhea, TM's clear Neck: Supple, Nontender, No JVD Cardiovascular: Regular rate, Regular rhythm, No murmurs Respiratory: No distress, Chest nontender, - - Decreased breath sounds at the right base Abdomen: Soft, Nontender, Normal bowel sounds, - - Mildly distended abdomen consistent with history of ascites, no palpable fluid wave or tympany present Back: Nontender, Normal Inspection Extremities: Nontender, No edema Skin: Normal color, No rash Neurological: Alert, Oriented x3, Cranial nerves II-XII grossly intact, Normal Strength, Normal Sensation Psychological: Normal affect, Depressed, Agitated Diagnostic/Tx/Re-eval Chest X-Ray - ED: 2 View, Read by ED Physician, Read by Radiologist, Right Effusion Clinical Impression(s) from Imaging Studies Chest X-Ray 10/03/19 19:50 IMPRESSION: 1. Large right pleural effusion. This may be related to previously documented cirrhosis and ascites. However, underlying pulmonary malignancy should be considered. Consider CT of the chest for further evaluation. Electronically Signed: Wanda Amato MD at 20:26 EST Tel , Service support , Laboratory Data 10/03/19 10/03/19 10/03/19 18:35 18:35 18:35 WBC 8.8 RBC 4.66 Hgb 14.9 Hct 44.3 MCV 95.1 MCH 32.0 MCHC 33.6 RDW Std Deviation 49.1 H RDW Coeff of Bonnie 14.1 Plt Count 183 MPV 10.3 Immature Gran % (Auto) 0.500 Neut % (Auto) 72.2 H Lymph % (Auto) 19.8 [place] % (Auto) 5.3 Eos % (Auto) 1.5 Baso % (Auto) 0.7 Absolute Neuts (auto) 6.4 Absolute Lymphs (auto) 1.74 Nucleated RBC % 0 PT INR APTT Sodium 135 L Potassium 4.4 Chloride 106 Carbon Dioxide 20.0 L Anion Gap 9 BUN 36 H Creatinine 1.54 H Estim Creat Clear Calc 33.13 Est GFR (MDRD) Af Amer 44 L Est GFR (MDRD) Non-Af 36 L BUN/Creatinine Ratio 23.4 H Glucose 158 H Calcium 8.7 Troponin I < 0.015 B-Natriuretic Peptide 37.9 10/03/19 19:36 WBC RBC Hgb Hct MCV MCH MCHC RDW Std Deviation RDW Coeff of Bonnie Plt Count MPV Immature Gran % (Auto) Neut % (Auto) Lymph % (Auto) [place] % (Auto) Eos % (Auto) Baso % (Auto) Absolute Neuts (auto) Absolute Lymphs (auto) Nucleated RBC % PT 15.2 H INR 1.2 APTT 33.3 Sodium Potassium Chloride Carbon Dioxide Anion Gap BUN Creatinine Estim Creat Clear Calc Est GFR (MDRD) Af Amer Est GFR (MDRD) Non-Af BUN/Creatinine Ratio Glucose Calcium Troponin I B-Natriuretic Peptide - Rhythm Strip Rhythm Strip: Sinus Rhythm Rate: 88 Ectopy: None - EKG Initial EKG Interpretation: Sinus Rhythm, - - Sinus rhythm at a rate of 88 [place] interval 172 QRS 82 QTc 418 Left axis deviation Normal ST segments - Medical Decision Making Patient is evaluated for shortness of breath and chest tightness. She has decreased breath sounds at the right base. She is hemodynamically stable and is not requiring submental oxygen. Her symptoms seem to be much worse when she lays down and better when she sits up. Chest x-ray shows a large pleural effusion on the right side. Patient does not have a history of this. She does have a history of ascites and this pleural effusion might be secondary to her cirrhosis. Because patient is so symptomatic she will be admitted. In addition, I am slightly alarmed by how fast this pleural effusion seem to develop. I am unable to ambulate patient for pulse ox as she is wheelchair- bound at baseline. Troponin is negative and I do not suspect ACS. proBNP is normal. Creatinine is mildly elevated but this seems to be close to her baseline. Her white blood cell count and hemoglobin are normal. I have lower suspicion for a large pericardial effusion and patient does not display any tamponade pathology. Patient stable for admission. She is agreeable with plan. ED Disposition - Plan for ED Patient: Disposition: Acute Care Hospital [facility] Diagnosis: Pleural effusion, right, Dyspnea
[2019-10-03 19:26] LABS: Absolute Lymphocyte Count 1.74 X10^3/uL (0.83-4.51); Absolute Neutrophil Count 6.4 X10^3/uL (2.0-7.7); Basophil# 0.06 X10^3/uL; Basophil% 0.7 % (0-1); Eosinophil# 0.13 X10^3/uL; Eosinophils% 1.5 % (0-5); Hematocrit 44.3 % (37-47); Hemoglobin 14.9 g/dL (12.0-15.0); Lymphocyte # 1.74 X10^3/ul (4.0); Lymphocyte % 19.8 % (19-41); Mean Corp Hgb Conc 33.6 g/dL (32-36); Mean Corpuscular Volume 95.1 fL (81-99); Mean Platelet Vol. 10.3 fl (6.2-12.0); Monocyte# 0.47 X10^3/uL; Monocyte% 5.3 % (0-10); NRBC Flagged by Analyzer 0 % (0-5); Neutrophil # 6.36 X10^3/uL (2.7-7.7); Neutrophil % 72.2 % (47-70); Platelet Count 183 K/mm3 (150-450); RBC Distribution Width CV 14.1 % (11.6-14.6); RBC Distribution Width SD 49.1 fl (35.1-43.9); Red Blood Count 4.66 M/mm3 (4.2-5.4); White Blood Count 8.8 K/mm3 (4.4-11.0)
[2019-10-03 19:43] LABS: Anion Gap 9 (5-15); BUN 36 mg/dL (7-18); BUN/Creat Ratio 23.4 RATIO (10-20); Calcium,Total 8.7 mg/dL (8.5-10.1); Chloride 106 mmol/L (98-107); Creatinine, Serum 1.54 mg/dL (0.55-1.02); EST Glomerular Filtration Rate 36 mL/min (>60); Est Glom Filt Rate - Afr Amer 44 mL/min (>60); Estimated Creatinine Clearance 33.13 ml/min; Glucose 158 mg/dL (74-106); Potassium 4.4 mmol/L (3.5-5.1); Sodium Level 135 mmol/L (136-145)
[2019-10-03 19:47] VITALS: O2SAT 96
--- NOTE | 2019-10-03 19:48 | ED.RN ---
PATIENT PLACED ON OXYGEN FOR COMFORT.
--- NOTE | 2019-10-03 19:50 | RAD_ITS ---
STUDY: X-RAY CHEST REASON FOR EXAM: Female, 59 years old. SOB. TECHNIQUE: PA and lateral chest. COMPARISON: 10/06/2016. CT abdomen 09/28/2019. FINDINGS: Large unilateral right pleural effusion. Left lung is clear. Normal size heart. Visualized hilar and mediastinal shadows are unremarkable. Soft tissues and bony structures are unremarkable. RAD/Chest PA and Lateral IMPRESSION: 1. Large right pleural effusion. This may be related to previously documented cirrhosis and ascites. However, underlying pulmonary malignancy should be considered. Consider CT of the chest for further evaluation. Electronically Signed: Wanda Amato MD at 20:26 EST Tel , Service support ,
[2019-10-03 19:56] LABS: International Normalized Ratio 1.2; Prothrombin Time (Protime)PT. 15.2 SECONDS (11.7-14.9)
[2019-10-03 19:57] LABS: Partial Thromboplast Time 33.3 Seconds (24.1-36.2)
[2019-10-03 19:59] LABS: BNP,B-Type NATRIURETIC PEPTIDE 37.9 pg/mL (0-100)
[2019-10-03 21:23] VITALS: BP 111/60; PULSE 90; RESP 14; O2SAT 98
--- NOTE | 2019-10-03 22:28 | PCM.HP.STD ---
History of Present Illness Date of Admission: 10/03/19 Chief Complaint: Shortness of breath The patient is a 59 year old F with PMH as below who presents with shortness of breath. She was just discharged yesterday after having a 4-day stay for colitis. She had to paracentesis for ascites however both therapeutic and diagnostic one was to rule out SBP. She was continued on lactulose as well as Lasix and Aldactone on discharge, and she was also sent home with Levaquin. 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 She presents to the hospital this time for shortness of breath and an ability to catch her breath. She denies any chest pain, lightheadedness, or dizziness and states that her abdominal pain is better than what it was when she initially presented 5 days ago. Chest x-ray in the ED demonstrated a large right pleural effusion with normal left lung. She has no leukocytosis and does appear to be a little bit dry given a hemoglobin of 14.9, creatinine is also 1.54 which is up from her baseline of 1.2-1.3. She has hypo-knee treatment for volume overload as well. INR is 1.2 which is consistent with what it has been previously. On exam she was not hypoxic, and her other vital signs were unremarkable. 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 Luke. Abnormal EKG (Chronic) ekg's indicating possible previous inferior infarct HTN (hypertension) (Chronic) Debility (Chronic) Type II diabetes mellitus (Chronic) Peripheral neuropathy (Chronic) Tobacco use disorder (Chronic) Obesity (Chronic) Medical History: Medical History (Last Updated 09/28/19 @ 18:43 by Xochitl Pittman MD) Hyperlipidemia (Chronic) E78.5 Abnormal EKG (Chronic) R94.31 ekg's indicating possible previous inferior infarct HTN (hypertension) (Chronic) I10 Type II diabetes mellitus (Chronic) E11.9 Peripheral neuropathy (Chronic) G62.9 Tobacco use disorder (Chronic) F17.200 Allergies clindamycin [From Cleocin] Allergy (Verified 09/28/19 14:12) Itching Sulfa (Sulfonamide Antibiotics) Allergy (Verified 09/28/19 14:12) Itching ondansetron [From Zofran (as hydrochloride)] Adverse Reaction (Verified 09/28/19 14:12) Nausea Home Medications: Ambulatory Orders Medication Instructions Recorded proMETHazine tablet [Phenergan 25 mg PO Q6H PRN PRN 06/11/18 tablet] Furosemide [Lasix] 40 mg PO DAILY #30 tab 10/02/19 Lactulose [Chronulac] 20 gm PO DAILY #30 udc 10/02/19 Levofloxacin [Levaquin] 500 mg PO DAILY #7 tab 10/02/19 Oxycodone [Oxyir] 5 mg PO BID 3 Days #6 tab 10/02/19 Spironolactone [Aldactone] 25 mg PO DAILY #30 tab 10/02/19 Surgical History: Surgical History (Last Updated 09/28/19 @ 18:43 by Xochitl Pittman MD) 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 Luke. Surgical History: cholecystectomy, - - Amputation of the left fourth and fifth toes and metatarsals. 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 Denies: Cough, Shortness of breath at rest, Sputum production Gastrointestinal: Reports: Abdominal Pain. Denies: Nausea, Vomiting Genitourinary: Denies: Dysuria Musculoskeletal: Denies: Joint Pain, Joint Tenderness Skin: Denies: Rash, Wounds Neurological: Denies: Numbness, Tingling, Focal weakness Psychiatric: Denies: Anxiety, Depression Hematologic/ Lymphatic: Denies: Easy Bruising, Easy Bleeding VTE Information - Inpt Only VTE Present on Admission: No - Physical Exam Vitals/I&O's: Vital Signs Temp Pulse Resp BP Pulse Ox 98.2 F 90 14 111/60 98 10/03/19 18:15 10/03/19 21:23 10/03/19 21:23 10/03/19 21:23 10/03/19 21:23 Oxygen Delivery Method Room Air Weight: 179 lb 0.246 oz Body Mass Index (BMI) 30.7 Finger Stick Blood Glucose 197 General: Alert, Oriented x3, Cooperative, No apparent distress HEENT: Atraumatic, PERRLA, EOMI, Normocephalic Oral: Dry Mucosa Neck: Supple, No JVD Lungs: Clear to auscultation, Normal air movement, No rhonchi, No wheeze, No rales, Diminished - On the right compared to the left, the diminished breath sounds on the right extend up to the midway portion of her right chest Cardiovascular: Regular rate, Regular Rhythm, Normal S1, Normal S2, No murmurs Abdomen: Soft, No Hepato-splenomegaly, Distended - ascites, Tender - Minimal throughout abdomen Extremities: No edema, Capillary Refill Less than 3 Seconds Skin: No rashes, No breakdown Neurological: Neuro grossly intact, Sensory exam intact to light touch and pain Psych/Mental Status: Flat Affect, Depressed Laboratory Results 10/03/19 18:35: WBC 8.8, RBC 4.66, Hgb 14.9, Hct 44.3, MCV 95.1, MCH 32.0, MCHC 33.6, RDW Std Deviation 49.1 H, RDW Coeff of Bonnie 14.1, Plt Count 183, MPV 10.3, Immature Gran % (Auto) 0.500, Neut % (Auto) 72.2 H, Lymph % (Auto) 19.8, [place] % (Auto) 5.3, Eos % (Auto) 1.5, Baso % (Auto) 0.7, Absolute Neuts (auto) 6.4, Absolute Lymphs (auto) 1.74, Nucleated RBC % 0 10/03/19 18:35: Sodium 135 L, Potassium 4.4, Chloride 106, Carbon Dioxide 20.0 L, Anion Gap 9, BUN 36 H, Creatinine 1.54 H, Estim Creat Clear Calc 33.13, Est GFR (MDRD) Af Amer 44 L, Est GFR (MDRD) Non-Af 36 L, BUN/Creatinine Ratio 23.4 H, Glucose 158 H, Calcium 8.7, Troponin I < 0.015 10/03/19 18:35: B-Natriuretic Peptide 37.9 10/03/19 19:36: PT 15.2 H, INR 1.2, APTT 33.3 Assessment/Plan All Active Problems (Last Updated 09/28/19 @ 18:43 by Xochitl Pittman MD) Peritonitis (acute) generalized (Acute) 1. Large right pleural effusion -We will hold her Aldactone and her Lasix given her dehydration and her increased creatinine -We will plan for thoracentesis in the morning -INR today on admission was 1.2 2. Ascites/cirrhosis/colitis -Unknown etiology of her cirrhosis she says that she does not drink. -CT-guided biopsy of her liver in October did not show anything other than cirrhosis -Hepatitis panel was negative as was autoimmune panel -She was recently on Cipro Flagyl and transition to Levaquin, which we will continue with his care 3. HTN/HLD -Blood pressures are stable -We will continue to hold her Lasix -She has been weaned off of her statin therapy by her primary care doctor 4. DM 2/neuropathy/chronic pain -Used to be on insulin therapy however her A1c is 6.4 -We will put her on Accu-Cheks AC at bedtime with medium dose sliding scale -She was previously on gabapentin but she is no longer on them, she sees Dr. Santana for her chronic pain and she has OxyIR at home which will be continued to 5. Depression/anxiety -Stable -She is getting a little down by repeated hospitalizations and studies have not pointed to a cause for her cirrhosis -Not currently on any medications at this time DVT: Heparin Code Visit OBSV E&M: 69095 Initial observation care L2
[2019-10-03 23:01] VITALS: BP 105/70; PULSE 85; PULSE 89; RESP 14; O2SAT 98
[2019-10-03] MEDS: LORazepam 0.5 MG Tablet PO (23:26)
[2019-10-03 23:33] VITALS: O2SAT 96; BMI 28.8; BMI 28.9
[2019-10-03 23:37] VITALS: BP 128/44; PULSE 82; RESP 16; TEMP 36.6; O2SAT 95
[2019-10-04] VITALS (9 sets, daily range): BP systolic 92–146; BP diastolic 41–69; PULSE 72–95; RESP 17–18; TEMP 36.4–37.1; O2SAT 93–99
--- NOTE | 2019-10-04 | FLU_PTH ---
PATIENT: VITOR ALBERTO LOC: MS3 U#:[id number] AGE/SX: 59/F ROOM: WI313 RE10/04/[address]: Dr. Ab Callejas DO : 1960 BED: 1 DIS: 10/08/2019 SPEC #: [id number] RECD: 10/04/19 13:52 STATUS: BAHMAN REKenji #: [id number] LINNEA: 10/04/19 00:[address]: Douglas Cohen DEPT: CYTOLOGY RECD BY: Carlos High ENTERED: 10/04/19 14:35 SP TYPE: Fluid OTHR DR: MD Dr. Froilan Bernstein Chi, MD Tissues: THORACIC FLUID Procedures: Special Stain Group II Surgery Specimen Level IV Cytospin Fluid HEADER OPERATION: US guided right thoracentesis PRE-OP DIAGNOSIS: Right pleural effusion TISSUE SUBMITTED: Thoracic fluid DIAGNOSIS CYTOLOGY Thoracentesis, fluid for cytology (cytospins and cell block): Negative for malignant cells. AM:sp112/08/18 CYTOLOGY STUDY Slides are reviewed. CYTOLOGY GROSS Received is 180 ml of zafar cloudy fluid labeled with the patient's name and and designated per the requisition as thoracic fluid. Submitted for cytology preparation including cell block. /CC:cc 10/04/19 TC: 5 CPT: 66187, 62848
[2019-10-04] MEDS: oxyCODONE 5 MG Tablet PO (01:11)
[2019-10-04] MEDS: proMETHazine 25 MG Tablet PO ×4 (01:11→22:33)
[2019-10-04 05:49] LABS: Absolute Lymphocyte Count 2.42 X10^3/uL (0.83-4.51); Absolute Neutrophil Count 4.5 X10^3/uL (2.0-7.7); Basophil# 0.06 X10^3/uL; Basophil% 0.8 % (0-1); Eosinophil# 0.18 X10^3/uL; Eosinophils% 2.3 % (0-5); Hematocrit 36.7 % (37-47); Hemoglobin 12.1 g/dL (12.0-15.0); Lymphocyte # 2.42 X10^3/ul (4.0); Lymphocyte % 30.8 % (19-41); Mean Corpuscular Hgb 31.4 pg (27.0-32.0); Mean Corpuscular Volume 95.3 fL (81-99); Mean Platelet Vol. 10.2 fl (6.2-12.0); Monocyte# 0.66 X10^3/uL; Monocyte% 8.4 % (0-10); NRBC Flagged by Analyzer 0 % (0-5); Neutrophil % 57.2 % (47-70); Platelet Count 167 K/mm3 (150-450); RBC Distribution Width SD 48.8 fl (35.1-43.9); Red Blood Count 3.85 M/mm3 (4.2-5.4); White Blood Count 7.9 K/mm3 (4.4-11.0)
[2019-10-04 06:12] LABS: ALB/GLOB Ratio 0.5 RATIO (0.9-2.4); AST(SGOT) 48 U/L (15-37); Alanine Aminotransfer ALT/SGPT 27 U/L (13-56); Albumin, Serum 1.8 g/dL (3.2-5.0); Alkaline Phosphatase 169 U/L (45-117); Anion Gap 6 (5-15); BUN 36 mg/dL (7-18); BUN/Creat Ratio 27.1 RATIO (10-20); Calcium,Total 7.8 mg/dL (8.5-10.1); Chloride 107 mmol/L (98-107); Creatinine, Serum 1.33 mg/dL (0.55-1.02); EST Glomerular Filtration Rate 43 mL/min (>60); Est Glom Filt Rate - Afr Amer 52 mL/min (>60); Estimated Creatinine Clearance 38.36 ml/min; Globulin 3.6 g/dL (2.2-4.2); Glucose 127 mg/dL (74-106); Potassium 4.3 mmol/L (3.5-5.1); Protein, Total 5.4 g/dL (6.4-8.2); Sodium Level 134 mmol/L (136-145)
[2019-10-04] MEDS: levoFLOXacin 500 MG Tablet PO (06:36)
--- NOTE | 2019-10-04 07:20 | PCM.PN.HOSP ---
Patient Problems: Active and Suspected Problems (Last Updated 09/28/19 @ 18:43 by Xochitl Pittman MD) Pleural effusion, right (Acute) Dyspnea (Acute) Reason for Visit: Pleural effusion Subjective: Patient is a 59-year-old lady discharged from the hospital a day prior to her readmission. Patient was on admission for abdominal pain. Patient was diagnosed with suspected SBP in the patient with liver cirrhosis with ascites treated with Rocephin discharged home on Levaquin. Patient presented with shortness of breath imaging studies obtained on admission demonstrated Large right pleural effusion. Admitted to regular nursing floor for further management Objective: GENERAL: cooperative HEENT: Atraumatic; EYES; Anicteric, Normal Conjunctiva NECK; supple, normal thyroid, RESPIRATORY: Diminished to auscultation CARDIOVASCULAR: Regular S1 S2, GI: Distended with shifting dullness : No Renal angle tenderness; EXTREMITIES: No edema, no clubbing, MUSCULOSKELETAL: no muscle waisting NEURO: Awake; no lateralizing signs. SKIN: No Rash PSYCH; Flat affect Vitals/I&O's: Vital Signs Temp Pulse Resp BP Pulse Ox 98.2 F 94 18 146/65 H 94 10/04/19 06:31 10/04/19 06:31 10/04/19 06:31 10/04/19 06:31 10/04/19 06:31 Oxygen Delivery Method Room Air Weight: 76.3 kg Body Mass Index (BMI) 28.8 Finger Stick Blood Glucose 197 Intake and Output for Last 24 Hours 10/02/19 10/03/19 10/04/19 23:59 23:59 23:59 Intake Total 460 / 460 Output Total 200 / 200 Balance 260 / 260 Laboratory Results 10/03/19 18:35: WBC 8.8, RBC 4.66, Hgb 14.9, Hct 44.3, MCV 95.1, MCH 32.0, MCHC 33.6, RDW Std Deviation 49.1 H, RDW Coeff of Bonnie 14.1, Plt Count 183, MPV 10.3, Immature Gran % (Auto) 0.500, Neut % (Auto) 72.2 H, Lymph % (Auto) 19.8, Miner % (Auto) 5.3, Eos % (Auto) 1.5, Baso % (Auto) 0.7, Absolute Neuts (auto) 6.4, Absolute Lymphs (auto) 1.74, Nucleated RBC % 0 10/03/19 18:35: Sodium 135 L, Potassium 4.4, Chloride 106, Carbon Dioxide 20.0 L, Anion Gap 9, BUN 36 H, Creatinine 1.54 H, Estim Creat Clear Calc 33.13, Est GFR (MDRD) Af Amer 44 L, Est GFR (MDRD) Non-Af 36 L, BUN/Creatinine Ratio 23.4 H, Glucose 158 H, Calcium 8.7, Troponin I < 0.015 10/03/19 18:35: B-Natriuretic Peptide 37.9 10/03/19 19:36: PT 15.2 H, INR 1.2, APTT 33.3 10/04/19 05:10: WBC 7.9, RBC 3.85 L, Hgb 12.1, Hct 36.7 L, MCV 95.3, MCH 31.4, MCHC 33.0, RDW Std Deviation 48.8 H, RDW Coeff of Bonnie 14.0, Plt Count 167, MPV 10.2, Immature Gran % (Auto) 0.500, Neut % (Auto) 57.2, Lymph % (Auto) 30.8, Miner % (Auto) 8.4, Eos % (Auto) 2.3, Baso % (Auto) 0.8, Absolute Neuts (auto) 4.5, Absolute Lymphs (auto) 2.42, Nucleated RBC % 0 10/04/19 05:10: Sodium 134 L, Potassium 4.3, Chloride 107, Carbon Dioxide 21.0, Anion Gap 6, BUN 36 H, Creatinine 1.33 H, Estim Creat Clear Calc 38.36, Est GFR (MDRD) Af Amer 52 L, Est GFR (MDRD) Non-Af 43 L, BUN/Creatinine Ratio 27.1 H, Glucose 127 H, Calcium 7.8 L, Total Bilirubin 1.00, AST 48 H, ALT 27, Alkaline Phosphatase 169 H, Total Protein 5.4 L, Albumin 1.8 L, Globulin 3.6, Albumin/Globulin Ratio 0.5 L Current Medications Dextrose (D50w Syringe) 0 gm IV X1 PRN; Protocol PRN Reason: Hypoglycemia Glucagon () 1 mg IM .X1 PRN PRN Reason: Hypoglycemia Heparin Sodium (Porcine) (Heparin Na) 5,000 unit SC Q8 IDA Last Admin: 12/06/19 06:36 Dose: Not Given Documented by: Insulin Human Lispro (Humalog Kwikpen (Bkc)) 0 unit SC ACHS [facility]; Protocol Last Admin: 10/04/19 06:35 Dose: Not Given Documented by: Levofloxacin (Levaquin Tablet) 500 mg PO DAILY@0600 [facility] Last Admin: 10/04/19 06:36 Dose: 500 mg Documented by: Melatonin (Melatonin) 3 mg PO QHS [facility] Last Admin: 10/04/19 01:12 Dose: Not Given Documented by: Oxycodone HCl (Oxyir) 5 mg PO BID [facility] Last Admin: 10/04/19 01:11 Dose: 5 mg Documented by: Promethazine HCl (Phenergan Tablet) 25 mg PO Q6H PRN PRN PRN Reason: NAUSEA Last Admin: 10/04/19 01:11 Dose: 25 mg Documented by: Sodium Chloride () 10 - 40 ml IV UD PRN PRN Reason: SALINE FLUSH STROKE Vital Signs/Narrative: Vital Signs Temp Pulse Resp BP Pulse Ox 10/04/19 06:31 98.2 F 94 18 146/65 H 94 Medical Necessity - Tobacco Use Smoking Status: Current some day smoker Tobacco Use: Cigarettes Assessment/Plan All Active Problems (Last Updated 09/28/19 @ 18:43 by Xochitl Pittman MD) Pleural effusion, right (Acute) Dyspnea (Acute) Peritonitis (acute) generalized (Acute) Patient is a 59-year-old lady discharged from the hospital a day prior to her readmission. Patient was on admission for abdominal pain. Patient was diagnosed with suspected SBP in the patient with liver cirrhosis with ascites treated with Rocephin discharged home on Levaquin. Patient presented with shortness of breath imaging studies obtained on admission demonstrated Large right pleural effusion. Admitted to regular nursing floor for further management 1. Large right-sided pleural effusion ~Suspected to be transudate from patient's underlying ascites. Admitted to regular nursing floor. An order was given for patient to undergo ultrasound-guided thoracocentesis diagnostic as well as therapeutic purpose. Lab work ordered 2. Ascites ~patient has underlying cirrhosis of the liver she underwent paracentesis on 09/26/2019. Paracentesis demonstrated cell counts of 347 consistent with SBP patient with treated with Rocephin and discharged home on Levaquin 3. Cirrhosis of the liver ~[place] to be secondary to nonalcoholic fatty liver disease from obesity and diabetes. Patient has evidence of end-stage liver disease with ascites 4. Essential hypertension ~patient was previously on antihypertensives which was subsequently weaned off following significant improvement in her blood pressure by her PCP 5. Diabetes mellitus type 2 ~Currently diet controlled patient was previously on insulin and again per patient this was weaned off by her PCP. Hemoglobin A1c from 09/29/2019 was 6.4 6. Diabetic neuropathy ~patient previously on gabapentin 7. Chronic pain syndrome ~Patient is followed by Dr. Martinez; did continue with patient home pain regimen 8. Dyslipidemia ~Previously on statin therapy has been weaned off 9. Depression with anxiety ~currently not on any medications 10. Tobacco dependence ~counseled on cessation, offered nicotine patch for tobacco cravings 11. DVT prophylaxis ~SC heparin Code Visit Inpatient E&M: 70231 Subs Hosp L3
[2019-10-04] MEDS: oxyCODONE 5 MG Tablet 10 MG PO ×3 (09:16→22:33)
[2019-10-04 11:20] LABS: Bedside Glucose 167 mg/dL (70-110)
--- NOTE | 2019-10-04 12:45 | CASEMGMT ---
SW left a message for pt's CM w/[place], Mariah Campo, letting her know pt is back in the hospital. SW then called back and spoke w/Arabella on the coverage line, let her know pt is back in the hospital. NAYE Camacho
--- NOTE | 2019-10-04 12:57 | RAD_ITS ---
STUDY: X-RAY CHEST REASON FOR EXAM: Female, 59 years old. Status post right thoracentesis. TECHNIQUE: Inspiration and expiration views were obtained. COMPARISON: Comparison is made with prior study dated July 04, 2019. FINDINGS: The patient is status post right thoracentesis. No evidence of pneumothorax. Stable elevation of the right hemidiaphragm with residual blunting of the right costophrenic angle and these markings at the right base suggestive of atelectasis and/or scarring. RAD/Chest Insp/Exp 2 View IMPRESSION: Status post right thoracentesis. There is no evidence of a pneumothorax. Electronically Signed: Jakob Hirsch, at 14:19 EST , Service support ,
[2019-10-04 14:15] LABS: Body Fluid Mononuclear WBC # 0.473 10^3/uL; Body Fluid Total Cells Counted 0.615 10^3/ul; Red Cell Count/Body Fluid 0.004 10^6/ul; White Blood Count/Body Fluid 0.493 10^3/uL
[2019-10-04 14:24] LABS: Auto B Fluid Analyzer BKGD Ct COUNTS W/IN LIMITS (W/IN LIMITS)
[2019-10-04 14:28] LABS: Appearance/Body Fluid SL CLDY; Color/Body Fluid YELLOW; Source- Body Fluid THORACENTESIS
--- NOTE | 2019-10-04 14:49 | CASEMGMT ---
Social Work Note RN updated this worker that radiology called and pt mentioned Hospice and also mentioned if I am going to , I may as well take a gun to my head. SW back to floor from procedure. WILBER met with pt. SW introduced self and role at [facility]. Pt is alert and orientated x3. SW asked pt how she is doing. Pt states I am tired. Pt states that she lives alone and only has her self for support. SW offered support to pt. Pt states that she has history of anxiety but denied any depression. Per H+P pt does have history of anxiety and depression. SW asked pt about any feelings of sadness, hopelessness, worthlessness, etc. Pt states honey how would you feel if you were in my position. SW informed pt that this worker would probably feel frustrated and sad and hopeless. Pt didn't answer when this worker asked again if she felt any of those emotions. SW spoke with pt regarding normal feelings to have and that it is hard not having any answers. Pt states I can't even walk because I fill up with water. Pt states I am not living my life to the fullest. SW again offered support. SW updated pt that [facility] was at [facility] to see pt but pt was off floor. Pt states don't let those people near me, I don't want them around me anymore. SW asked pt if they were currently coming to see pt and pt states I can't remember the last time they saw me. SW educated pt on [facility] and that a Palliative Care referral could be made while pt is in hospital. Pt is agreeable to Palliative Care Referral. SW spoke with pt regarding comments of taking a gun to head. Pt states Honey I am here to prolong my life not end it. Pt denied any history or current suicidal thoughts/plans/ideations. Again pt states I am here to get better not to end my life. Again pt denied any current suicidal thoughts/plans/ideations. Pt denied wanting Hospice care at this time but is agreeable to Palliative Care. Pt denied additional needs or concerns at this time. SW also mentioned CCN to pt and pt denied CCN referral. SW placed a call to [facility] and provided Palliative referral to [facility]. SW faxed referral. Plan: Home. Palliative Care referral made Roberta Rojas RESEARCH CHIEF ENGINEER, SERVICE UNIT OPERATOR [employer]
--- NOTE | 2019-10-04 14:57 | CHAPLAIN ---
Type of Pastoral Visit _x__ Initial Visit ___ Follow-up Visit ___ On-call Visit ___ General Patient Visit ___ Spiritual Assessment ___ Family Conference ___ Bereavement ___ Rapid Response ___ Code Blue ___ Other (describe below) Pastoral Care Referral From ___ Patient ___ Family ___ Nurse ___ Physician ___ Laboratory Phlebotomist _x__ Field Marketing Representative ___ Other (describe below) Sacrament/Intervention ___ Active listening ___ Anointing ___ Rastafari ___ Bereavement ___ Communion ___ Lauren exploration ___ ___ Life review ___ Prayer ___ Reconciliation ___ Sacrament of Sick ___ Supportive presence ___ Wedding _x__ Other (describe below) Pastoral Comments Case Management notified this high lift driver that patient is very discouraged and had made comments to radiology that were flagged for SI; talked with SW who had just met with patient to discuss these thoughts; went into pt room to offer support and pt said that she did not want to talk; gave offer of presence and support if pt would choose that in the future and then left the room; notified SW of this attempt
[2019-10-04 15:17] LABS: Lymphocytes 69 %; Mesothelial Cells 27 %; Monocytes 1 %; Neutrophil (Segs) 3 %
[2019-10-04 15:18] LABS: Body Fluid QC Type(s) BFQ1
--- NOTE | 2019-10-04 15:20 | CASEMGMT ---
RN CM Re-admission note: Prior admission: Admitted 09/28/19 for abdominal pain, colitis, and ascites. Discharged home 10/02/19. Pt has Passport services and receives Home Meals. Re-admitted to [facility] 10/04/19 with diagnoses Ascites. RN CM to room to talk with pt. Introduced self and role of RN ANJEL. Pt stated, when she was discharged 10/02/19 she states she did follow-up with Dr Martinez before leaving the hospital. She had an appt scheduled with Dr Rosenthal for 10/09/19 but re-admitted to [facility] 10/04/19 prior to the appt date. Pt was discharged home on several new medications that were e-scribed to [facility], which was pt's preferred pharmacy. Pt did not crop picker the medications @ [facility] after being discharged last admission. Pt told this RN CM that she did not have transportation to pick them up and that her friend was planning on picking them up for her today 10/04/19. Discussed plan of pt getting medications after this discharge and her preference of pharmacy. Pt states would like to have new scripts/medications sent to [facility] so that meds can be delivered to her room prior to discharge this admission. Pt states she wants to change PCP's, stating that she will not go back to Dr Rosenthal again. Pt given list of local PCP's. Pt stated she wishes to have a female MD this time. Call placed to Dr Stanford's office. They are able to accept new pt's but Dr Stanford does not have any appts available until October. Assistant Production Manager stated there is an appt available with BUNCH BREAKER Ab Triplett on 10/10 @ 0900. This RN CM to room to talk with pt and made her aware, since she stated wanted a female MD. Pt states she is agreeable to seeing Ab Triplett on the and states the appt date/time works okay for her. She states she will call [employer] to make transportation arrangements to the appt. She was made aware she should arrive @ 0830 to complete paperwork. Pt given Dr Stanford's office address and phone number. Discussed HHC and CCN with pt. Pt refusing both of them, stating, I just want to get better to live my own life without any nurses or doctors. Reinforced that having a nurse or healthcare worker assisting with medications mgmt, follow-up care, assessment, and appts would be ways of helping for her to get better and have better symptom mgmt. Pt again declines and states she doesn't want anyone coming to her home. Pt told this RN ANJEL that she has a sister who has been staying with her for the past couple of weeks. Pt would not tell this GARY HOBBS her sister's name or contact information, stating, I don't want anyone calling her. I don't want her to be bothered. Pt made aware to ask for CM or SW if she has any further concerns/needs with discharge planning. Pt voices understanding. GARY HOBBS was informed that pt is active with [facility]. Per WILBER, Roberta Rojas, pt states she does not want [facility] any longer, but that she is agreeable to referral to [facility]. See WILBER note. Reginald RENO RN, CM
[2019-10-04 15:33] LABS: Glucose, Body Fluid 174 mg/dL (40-70); LDH,Body Fluid 76 Units/l (Not Establ.); Protein, Body Fluid 1.7 g/dL (Not Establ.)
[2019-10-04 16:31] LABS: Bedside Glucose 207 mg/dL (70-110)
[2019-10-04] MEDS: Insulin Lispro 100 UNIT/ML INSULN.PEN SC ×2 (17:02→22:38)
[2019-10-04] MEDS: Heparin Injection (Vial) 5,000 UNIT/ML VIAL 5000 UNIT SC (22:36)
[2019-10-04 22:50] LABS: Bedside Glucose 222 mg/dL (70-110)
--- NOTE | 2019-10-04 23:34 | US_ITS ---
PROCEDURE: ULTRASOUND GUIDED THORACENTESIS. DATE: October 04, 2019.. INDICATION: Female, 59 years old. Right pleural effusion. PHYSICIAN: Jakob Hirsch M.D. PROCEDURE: The risks, benefits, and alternatives to the procedure were explained to the patient. The specific risks of bleeding, infection, and pneumothorax requiring chest tube insertion were discussed and accepted. Written informed consent was obtained. Ultrasonographic evaluation of the right lower pleural space was carried out. An adequate pocket was identified. The patient was placed in the sitting, upright position. The overlying skin was prepped and draped in sterile fashion. 1% lidocaine was administered subcutaneously for local anesthesia. Under ultrasound guidance, a 5 Kenyan thoracentesis needle/catheter system was advanced into the right posterior lower pleural fluid collection. Approximately 530 mL of zafar-colored fluid was drained. The catheter was removed, and a sterile dressing was applied. A specimen was collected and sent to the laboratory for analysis, as requested by the referring clinician. The patient tolerated the procedure well. A chest x-ray was ordered. US/Thoracentesis W US IMPRESSION: Ultrasound-guided right thoracentesis. Electronically Signed: Jakob Hirsch, at 14:12 EST , Service support ,
[2019-10-05 04:33] VITALS: BP 112/57; PULSE 89; RESP 18; TEMP 37; O2SAT 94
[2019-10-05] MEDS: oxyCODONE 5 MG Tablet 10 MG PO ×3 (05:36→18:15)
[2019-10-05] MEDS: proMETHazine 25 MG Tablet PO ×3 (05:36→18:15)
[2019-10-05] MEDS: levoFLOXacin 250 MG Tablet PO (06:38)
[2019-10-05] MEDS: Insulin Lispro 100 UNIT/ML INSULN.PEN SC ×3 (06:39→20:46)
[2019-10-05] MEDS: Heparin Injection (Vial) 5,000 UNIT/ML VIAL 5000 UNIT SC (06:41)
[2019-10-05 06:50] LABS: Bedside Glucose 166 mg/dL (70-110)
--- NOTE | 2019-10-05 07:39 | PCM.PN.HOSP ---
Patient Problems: Active and Suspected Problems (Last Updated 09/28/19 @ 18:43 by Xochitl Pittman MD) Pleural effusion, right (Acute) Dyspnea (Acute) Reason for Visit: Follow-up right-sided pleural effusion Subjective: Patient underwent diagnostic and therapeutic thoracocentesis on 10/04/2019 fluid sent for analysis results reviewed Objective: GENERAL: cooperative HEENT: Atraumatic; EYES; Anicteric, Normal Conjunctiva NECK; supple, normal thyroid, RESPIRATORY: Diminished to auscultation CARDIOVASCULAR: Regular S1 S2, GI: Distended with shifting dullness : No Renal angle tenderness; EXTREMITIES: No edema, no clubbing, MUSCULOSKELETAL: no muscle waisting NEURO: Awake; no lateralizing signs. SKIN: No Rash PSYCH; Flat affect Vitals/I&O's: Vital Signs Temp Pulse Resp BP Pulse Ox 98.6 F 89 18 112/57 L 94 10/05/19 04:33 10/05/19 04:33 10/05/19 04:33 10/05/19 04:33 10/05/19 04:33 Oxygen Delivery Method [6] Room Air Oxygen Delivery Method [5] Room Air Oxygen Delivery Method [4] Room Air Oxygen Delivery Method [3] Room Air Oxygen Delivery Method [2] Room Air Oxygen Delivery Method Room Air Weight: 76.3 kg Body Mass Index (BMI) 28.8 Finger Stick Blood Glucose 197 Intake and Output for Last 24 Hours 10/03/19 10/04/19 10/05/19 23:59 23:59 23:59 Intake Total 1460 / 1460 Output Total 730 / 730 Balance 730 / 730 Laboratory Results 10/04/19 11:14: POC Glucose 167 H 10/04/19 13:15: Fluid Glucose 174 H, Fluid Total Protein 1.7, Fluid LDH 76 10/04/19 13:15: Fluid Source THORACENTESIS, Fluid Color YELLOW, Fluid Appearance SL CLDY, Fluid WBC 0.493, Fluid RBC 0.004, Fluid Tot Cell Count 0.615 H, Fld Polynuclear WBCs # 0.020, Fld Polynuclear WBCs % 4.0, Fluid Mononuclear WBCs 0.473, Fld Mononuclear WBCs % 96.0, Fluid Neutrophils 3, Fluid Lymphocytes 69, Fluid Monocytes 1, Fld Mesothelial Cells 27, Fl Pathologist Comment May follow, Fluid Comment 2 SEE COMMENT 10/04/19 16:28: POC Glucose 207 H 10/04/19 22:28: POC Glucose 222 H 10/05/19 06:35: POC Glucose 166 H Current Medications Dextrose (D50w Syringe) 0 gm IV X1 PRN; Protocol PRN Reason: Hypoglycemia Glucagon () 1 mg IM .X1 PRN PRN Reason: Hypoglycemia Heparin Sodium (Porcine) (Heparin Na) 5,000 unit SC Q8 [facility] Last Admin: 10/05/19 06:41 Dose: 5,000 unit Documented by: Insulin Human Lispro (Humalog Kwikpen (Bkc)) 0 unit SC ACHS IDA; Protocol Last Admin: 10/05/19 06:39 Dose: 1 units Documented by: Levofloxacin (Levaquin Tablet) 250 mg PO DAILY@0600 [facility] Last Admin: 10/05/19 06:38 Dose: 250 mg Documented by: Melatonin (Melatonin) 3 mg PO QHS [facility] Last Admin: 10/04/19 22:40 Dose: Not Given Documented by: Oxycodone HCl (Oxyir) 10 mg PO Q6H PRN PRN PRN Reason: Pain Score 6-10/10 Last Admin: 10/05/19 05:36 Dose: 10 mg Documented by: Promethazine HCl (Phenergan Tablet) 25 mg PO Q6H PRN PRN PRN Reason: NAUSEA Last Admin: 10/05/19 05:36 Dose: 25 mg Documented by: Sodium Chloride () 10 - 40 ml IV UD PRN PRN Reason: SALINE FLUSH STROKE Vital Signs/Narrative: Vital Signs Temp Pulse Resp BP Pulse Ox 10/05/19 04:33 98.6 F 89 18 112/57 L 94 Medical Necessity - Tobacco Use Smoking Status: Current some day smoker Tobacco Use: Cigarettes Assessment/Plan All Active Problems (Last Updated 09/28/19 @ 18:43 by Xochitl Pittman MD) Pleural effusion, right (Acute) Dyspnea (Acute) Peritonitis (acute) generalized (Acute) Patient is a 59-year-old lady discharged from the hospital a day prior to her readmission. Patient was on admission for abdominal pain. Patient was diagnosed with suspected SBP in the patient with liver cirrhosis with ascites treated with Rocephin discharged home on Levaquin. Patient presented with shortness of breath imaging studies obtained on admission demonstrated Large right pleural effusion. Admitted to regular nursing floor for further management 1. Large right-sided pleural effusion ~Suspected to be transudate from patient's underlying ascites. Admitted to regular nursing floor. An order was given for patient to undergo ultrasound-guided thoracocentesis diagnostic as well as therapeutic purpose. Lab work ordered ?10/05/2019 patient underwent diagnostic and therapeutic thoracocentesis. Using Light's criteria patient fluid was consistent with transudate most likely from her cirrhosis. Follow-up checks x-ray ordered for this a.m. 2. Ascites ~patient has underlying cirrhosis of the liver she underwent paracentesis on 09/26/2019. Paracentesis demonstrated cell counts of 347 consistent with SBP patient with treated with Rocephin and discharged home on Levaquin 3. Cirrhosis of the liver ~[place] to be secondary to nonalcoholic fatty liver disease from obesity and diabetes. Patient has evidence of end-stage liver disease with ascites 4. Essential hypertension ~patient was previously on antihypertensives which was subsequently weaned off following significant improvement in her blood pressure by her PCP 5. Diabetes mellitus type 2 ~Currently diet controlled patient was previously on insulin and again per patient this was weaned off by her PCP. Hemoglobin A1c from 09/29/2019 was 6.4 6. Diabetic neuropathy ~patient previously on gabapentin 7. Chronic pain syndrome ~Patient is followed by Dr. Martinez; did continue with patient home pain regimen 8. Dyslipidemia ~Previously on statin therapy has been weaned off 9. Depression with anxiety ~currently not on any medications 10. Tobacco dependence ~counseled on cessation, offered nicotine patch for tobacco cravings 11. DVT prophylaxis ~SC heparin Code Visit Inpatient E&M: 91528 Subs Hosp L2
[2019-10-05 07:51] LABS: Absolute Lymphocyte Count 2.16 X10^3/uL (0.83-4.51); Absolute Neutrophil Count 4.3 X10^3/uL (2.0-7.7); Basophil# 0.08 X10^3/uL; Basophil% 1.1 % (0-1); Eosinophil# 0.19 X10^3/uL; Eosinophils% 2.5 % (0-5); Hematocrit 40.4 % (37-47); Hemoglobin 13.3 g/dL (12.0-15.0); Lymphocyte # 2.16 X10^3/ul (4.0); Lymphocyte % 28.5 % (19-41); Mean Corp Hgb Conc 32.9 g/dL (32-36); Mean Corpuscular Hgb 32.1 pg (27.0-32.0); Mean Corpuscular Volume 97.6 fL (81-99); Monocyte# 0.78 X10^3/uL; Monocyte% 10.3 % (0-10); NRBC Flagged by Analyzer 0 % (0-5); Neutrophil # 4.32 X10^3/uL (2.7-7.7); Neutrophil % 57.1 % (47-70); Platelet Count 168 K/mm3 (150-450); RBC Distribution Width CV 14.5 % (11.6-14.6); Red Blood Count 4.14 M/mm3 (4.2-5.4); White Blood Count 7.6 K/mm3 (4.4-11.0)
[2019-10-05 09:17] LABS: Anion Gap 7 (5-15); BUN 39 mg/dL (7-18); BUN/Creat Ratio 27.7 RATIO (10-20); Chloride 108 mmol/L (98-107); Creatinine, Serum 1.41 mg/dL (0.55-1.02); EST Glomerular Filtration Rate 40 mL/min (>60); Est Glom Filt Rate - Afr Amer 49 mL/min (>60); Estimated Creatinine Clearance 36.18 ml/min; Glucose 139 mg/dL (74-106); Magnesium 2.2 mg/dL (1.6-2.6); Potassium 4.9 mmol/L (3.5-5.1); Sodium Level 136 mmol/L (136-145)
--- NOTE | 2019-10-05 09:58 | CT_ITS ---
STUDY: CT CHEST WITHOUT CONTRAST REASON FOR EXAM: Female, 59 years old. Chest pain and cough, history of pleural effusion and thoracentesis RADIATION DOSAGE (If Supplied By Facility): CTDIvol = ( 15.64 ) mGy, DLP = ( 488.59 ) mGycm TECHNIQUE: Transaxial imaging was performed without the administration of intravenous contrast material. Individualized dose optimization techniques were used for this CT. COMPARISON: None. FINDINGS: There is a large free-flowing right pleural effusion affecting approximately two thirds of the right hemithorax. There is associated atelectasis. Interstitial edema also noted in both lung moss. There is a tiny left pleural effusion. Normal heart and pericardium. Normal mediastinum. Normal hilar regions. Normal unenhanced pulmonary arteries. Normal aorta arch and descending thoracic aorta. There are multi-level degenerative changes of the thoracic spine. Limited cuts in the upper abdomen show cirrhotic liver with diffuse ascites and borderline splenomegaly. CT/Chest without Contrast IMPRESSION: Large free-flowing right pleural effusion affecting approximately two thirds of the right hemithorax with associated atelectasis Interstitial edema in both lung moss Small left pleural effusion Cirrhotic liver with diffuse ascites Electronically Signed: Tim Nguyen MD at 11:37 EST , Service support ,
[2019-10-05 10:30] VITALS: BP 115/56; PULSE 89; RESP 18; TEMP 36.7; O2SAT 95
[2019-10-05 11:20] LABS: Bedside Glucose 137 mg/dL (70-110)
[2019-10-05] MEDS: Spironolactone 25 MG Tablet PO ×2 (14:05→20:44)
[2019-10-05] MEDS: 0.9% Saline Lock 10 ML Syringe IV (14:09)
[2019-10-05] MEDS: LORazepam 0.5 MG Tablet PO ×2 (14:09→20:44)
[2019-10-05 17:10] VITALS: BP 105/58; PULSE 89; RESP 18; TEMP 36.8; O2SAT 96
[2019-10-05 17:26] LABS: Bedside Glucose 221 mg/dL (70-110)
[2019-10-05] MEDS: Furosemide 100 MG/10 ML Vial 80 MG IV (18:16)
[2019-10-05 20:53] VITALS: BP 122/66; PULSE 89; RESP 18; TEMP 37.1; O2SAT 98
[2019-10-05 22:35] LABS: Bedside Glucose 297 mg/dL (70-110)
[2019-10-06] MEDS: oxyCODONE 5 MG Tablet 10 MG PO ×4 (01:03→21:20)
[2019-10-06] MEDS: proMETHazine 25 MG Tablet PO ×4 (01:05→21:20)
[2019-10-06 02:31] VITALS: BP 138/87; PULSE 93; RESP 18; TEMP 37.2; O2SAT 94
[2019-10-06] MEDS: LORazepam 0.5 MG Tablet PO ×4 (03:29→22:12)
[2019-10-06] MEDS: levoFLOXacin 500 MG Tablet PO (06:38)
[2019-10-06 06:45] LABS: Bedside Glucose 150 mg/dL (70-110)
--- NOTE | 2019-10-06 08:02 | PCM.PN.HOSP ---
Patient Problems: Active and Suspected Problems (Last Updated 09/28/19 @ 18:43 by Xochitl Pittman MD) Pleural effusion, right (Acute) Dyspnea (Acute) Reason for Visit: Right-sided pleural effusion Subjective: Patient underwent ultrasound-guided thoracocentesis on 10/05/2019. Follow-up CT ordered per recommendations from the radiologist demonstrated Large free-flowing right pleural effusion affecting approximately two thirds of the right hemithorax with associated atelectasis. She was also found to have interstitial edema in both lung moss. Patient Lasix dose increased. Repeat ultrasound-guided thoracocentesis ordered and scheduled for 10/07/2019. Objective: GENERAL: cooperative HEENT: Atraumatic; EYES; Anicteric, Normal Conjunctiva NECK; supple, normal thyroid, RESPIRATORY: Diminished to auscultation CARDIOVASCULAR: Regular S1 S2, GI: Distended with shifting dullness : No Renal angle tenderness; EXTREMITIES: No edema, no clubbing, MUSCULOSKELETAL: no muscle waisting NEURO: Awake; no lateralizing signs. SKIN: No Rash PSYCH; Flat affect Vitals/I&O's: Vital Signs Temp Pulse Resp BP Pulse Ox 98.9 F 93 18 138/87 H 94 10/06/19 02:31 10/06/19 02:31 10/06/19 02:31 10/06/19 02:31 10/06/19 02:31 Oxygen Delivery Method [6] Room Air Oxygen Delivery Method [5] Room Air Oxygen Delivery Method [4] Room Air Oxygen Delivery Method [3] Room Air Oxygen Delivery Method [2] Room Air Oxygen Delivery Method Room Air Weight: 76.3 kg Body Mass Index (BMI) 28.8 Finger Stick Blood Glucose 197 Intake and Output for Last 24 Hours 10/04/19 10/05/19 10/06/19 23:59 23:59 23:59 Intake Total 1460 / 1460 600 / 600 Output Total 730 / 730 Balance 730 / 730 600 / 600 Laboratory Results 10/05/19 07:38: Sodium Cancelled, Potassium Cancelled, Chloride Cancelled, Carbon Dioxide Cancelled, Anion Gap Cancelled, BUN Cancelled, Creatinine Cancelled, Estim Creat Clear Calc Cancelled, Est GFR (MDRD) Af Amer Cancelled, Est GFR (MDRD) Non-Af Cancelled, BUN/Creatinine Ratio Cancelled, Glucose Cancelled, Calcium Cancelled, Magnesium Cancelled 10/05/19 08:36: Sodium 136, Potassium 4.9, Chloride 108 H, Carbon Dioxide 21.0, Anion Gap 7, BUN 39 H, Creatinine 1.41 H, Estim Creat Clear Calc 36.18, Est GFR (MDRD) Af Amer 49 L, Est GFR (MDRD) Non-Af 40 L, BUN/Creatinine Ratio 27.7 H, Glucose 139 H, Calcium 8.0 L, Magnesium 2.2 10/05/19 11:15: POC Glucose 137 H 10/05/19 17:03: POC Glucose 221 H 10/05/19 20:44: POC Glucose 297 H 10/06/19 06:36: POC Glucose 150 H Current Medications Dextrose (D50w Syringe) 0 gm IV X1 PRN; Protocol PRN Reason: Hypoglycemia Furosemide (Lasix) 40 mg IV BID@1000,1800 [facility] Last Admin: 10/05/19 18:14 Dose: Not Given Documented by: Glucagon () 1 mg IM .X1 PRN PRN Reason: Hypoglycemia Heparin Sodium (Porcine) (Heparin Na) 5,000 unit SC Q8 [facility] Last Admin: 10/06/19 06:37 Dose: Not Given Documented by: Insulin Human Lispro (Humalog Kwikpen (Bkc)) 0 unit SC ACHS [facility]; Protocol Last Admin: 10/06/19 06:37 Dose: Not Given Documented by: Lactulose (Chronulac, Cephulac) 20 gm PO DAILY [facility] Levofloxacin (Levaquin Tablet) 500 mg PO DAILY@0600 [facility] Stop: 10/08/19 06:01 Last Admin: 10/06/19 06:38 Dose: 500 mg Documented by: Lorazepam (Ativan) 0.5 mg PO Q6H PRN PRN PRN Reason: ANXIETY/AGITATION Last Admin: 10/06/19 03:29 Dose: 0.5 mg Documented by: Melatonin (Melatonin) 3 mg PO QHS [facility] Last Admin: 10/05/19 20:46 Dose: Not Given Documented by: Oxycodone HCl (Oxyir) 10 mg PO Q6H PRN PRN PRN Reason: Pain Score 6-10/10 Last Admin: 10/06/19 07:18 Dose: 10 mg Documented by: Promethazine HCl (Phenergan Tablet) 25 mg PO Q6H PRN PRN PRN Reason: NAUSEA Last Admin: 10/06/19 07:18 Dose: 25 mg Documented by: Sodium Chloride () 10 - 40 ml IV UD PRN PRN Reason: SALINE FLUSH Last Admin: 10/05/19 14:09 Dose: 10 ml Documented by: Spironolactone (Aldactone) 25 mg PO BID IDA Last Admin: 10/05/19 20:44 Dose: 25 mg Documented by: Medical Necessity - Tobacco Use Smoking Status: Current some day smoker Tobacco Use: Cigarettes Assessment/Plan All Active Problems (Last Updated 09/28/19 @ 18:43 by Xochitl Pittman MD) Pleural effusion, right (Acute) Dyspnea (Acute) Peritonitis (acute) generalized (Acute) Patient is a 59-year-old lady discharged from the hospital a day prior to her readmission. Patient was on admission for abdominal pain. Patient was diagnosed with suspected SBP in the patient with liver cirrhosis with ascites treated with Rocephin discharged home on Levaquin. Patient presented with shortness of breath imaging studies obtained on admission demonstrated Large right pleural effusion. Admitted to regular nursing floor for further management 1. Large right-sided pleural effusion ~Suspected to be transudate from patient's underlying ascites. Admitted to regular nursing floor. An order was given for patient to undergo ultrasound-guided thoracocentesis diagnostic as well as therapeutic purpose. Lab work ordered ?10/05/2019 patient underwent diagnostic and therapeutic thoracocentesis. Using Light's criteria patient fluid was consistent with transudate most likely from her cirrhosis. Follow-up checks x-ray ordered for this a.m. ?10/06/2019: Patient underwent ultrasound-guided thoracocentesis on 10/05/2019. Follow-up CT ordered per recommendations from the radiologist demonstrated Large free-flowing right pleural effusion affecting approximately two thirds of the right hemithorax with associated atelectasis. She was also found to have interstitial edema in both lung moss. Patient Lasix dose increased. Repeat ultrasound-guided thoracocentesis ordered and scheduled for 10/07/2019. 2. Ascites ~patient has underlying cirrhosis of the liver she underwent paracentesis on 09/26/2019. Paracentesis demonstrated cell counts of 347 consistent with SBP patient with treated with Rocephin and discharged home on Levaquin 3. Cirrhosis of the liver ~[place] to be secondary to nonalcoholic fatty liver disease from obesity and diabetes. Patient has evidence of end-stage liver disease with ascites 4. Essential hypertension ~patient was previously on antihypertensives which was subsequently weaned off following significant improvement in her blood pressure by her PCP 5. Diabetes mellitus type 2 ~Currently diet controlled patient was previously on insulin and again per patient this was weaned off by her PCP. Hemoglobin A1c from 09/29/2019 was 6.4 6. Diabetic neuropathy ~patient previously on gabapentin 7. Chronic pain syndrome ~Patient is followed by Dr. Martinez; did continue with patient home pain regimen 8. Dyslipidemia ~Previously on statin therapy has been weaned off 9. Depression with anxiety ~currently not on any medications 10. Tobacco dependence ~counseled on cessation, offered nicotine patch for tobacco cravings 11. DVT prophylaxis ~[place] heparin Code Visit Inpatient E&M: 76506 Subs Hosp L2
[2019-10-06 08:08] LABS: Absolute Lymphocyte Count 2.03 X10^3/uL (0.83-4.51); Absolute Neutrophil Count 3.5 X10^3/uL (2.0-7.7); Basophil# 0.04 X10^3/uL; Basophil% 0.6 % (0-1); Eosinophil# 0.14 X10^3/uL; Eosinophils% 2.2 % (0-5); Hematocrit 34.8 % (37-47); Hemoglobin 11.6 g/dL (12.0-15.0); Lymphocyte # 2.03 X10^3/ul (4.0); Lymphocyte % 31.4 % (19-41); Mean Corp Hgb Conc 33.3 g/dL (32-36); Mean Corpuscular Hgb 31.8 pg (27.0-32.0); Mean Corpuscular Volume 95.3 fL (81-99); Mean Platelet Vol. 10.1 fl (6.2-12.0); Monocyte# 0.69 X10^3/uL; Monocyte% 10.7 % (0-10); NRBC Flagged by Analyzer 0 % (0-5); Neutrophil # 3.52 X10^3/uL (2.7-7.7); Neutrophil % 54.5 % (47-70); Platelet Count 169 K/mm3 (150-450); RBC Distribution Width CV 14.5 % (11.6-14.6); RBC Distribution Width SD 50.4 fl (35.1-43.9); Red Blood Count 3.65 M/mm3 (4.2-5.4); White Blood Count 6.5 K/mm3 (4.4-11.0)
[2019-10-06 08:19] LABS: Anion Gap 4 (5-15); BUN 38 mg/dL (7-18); BUN/Creat Ratio 27.9 RATIO (10-20); Calcium,Total 7.8 mg/dL (8.5-10.1); Chloride 105 mmol/L (98-107); Creatinine, Serum 1.36 mg/dL (0.55-1.02); EST Glomerular Filtration Rate 42 mL/min (>60); Est Glom Filt Rate - Afr Amer 51 mL/min (>60); Estimated Creatinine Clearance 37.51 ml/min; Glucose 159 mg/dL (74-106); Potassium 4.5 mmol/L (3.5-5.1); Sodium Level 132 mmol/L (136-145)
[2019-10-06 08:45] VITALS: BP 102/50; PULSE 98; RESP 16; TEMP 37.2; O2SAT 93
[2019-10-06] MEDS: Lactulose 20 GM/30 ML UDC PO (08:51)
[2019-10-06] MEDS: Furosemide 40 MG/4 ML Vial IV (08:52)
[2019-10-06] MEDS: Spironolactone 25 MG Tablet PO ×2 (08:52→21:20)
[2019-10-06] MEDS: 0.9% Saline Lock 10 ML Syringe IV ×2 (08:59→16:22)
[2019-10-06 11:25] LABS: Bedside Glucose 143 mg/dL (70-110)
[2019-10-06 14:15] VITALS: BP 99/61; PULSE 88; RESP 18; TEMP 36.8; O2SAT 98
[2019-10-06 15:16] VITALS: BP 128/55; PULSE 87; RESP 20; TEMP 37.1; O2SAT 98
[2019-10-06] MEDS: Furosemide 100 MG/10 ML Vial 80 MG IV (16:10)
[2019-10-06 17:05] LABS: Bedside Glucose 174 mg/dL (70-110)
[2019-10-06] MEDS: Insulin Lispro 100 UNIT/ML INSULN.PEN SC (21:26)
[2019-10-06 21:35] VITALS: BP 143/65; PULSE 70; RESP 20; TEMP 36.8; O2SAT 96
[2019-10-06 23:00] LABS: Bedside Glucose 173 mg/dL (70-110)
[2019-10-07] MEDS: proMETHazine 25 MG Tablet PO ×2 (04:06→11:57)
[2019-10-07] MEDS: oxyCODONE 5 MG Tablet 10 MG PO ×3 (04:06→19:39)
[2019-10-07 04:11] VITALS: BP 134/74; PULSE 94; RESP 18; TEMP 37.1; O2SAT 95
[2019-10-07 05:47] LABS: Absolute Lymphocyte Count 1.63 X10^3/uL (0.83-4.51); Absolute Neutrophil Count 3.1 X10^3/uL (2.0-7.7); Basophil# 0.03 X10^3/uL; Basophil% 0.5 % (0-1); Eosinophil# 0.16 X10^3/uL; Eosinophils% 2.9 % (0-5); Hematocrit 34.6 % (37-47); Hemoglobin 11.7 g/dL (12.0-15.0); Lymphocyte # 1.63 X10^3/ul (4.0); Lymphocyte % 29.1 % (19-41); Mean Corp Hgb Conc 33.8 g/dL (32-36); Mean Corpuscular Hgb 32.1 pg (27.0-32.0); Mean Corpuscular Volume 95.1 fL (81-99); Mean Platelet Vol. 9.9 fl (6.2-12.0); Monocyte# 0.64 X10^3/uL; Monocyte% 11.4 % (0-10); NRBC Flagged by Analyzer 0 % (0-5); Neutrophil # 3.12 X10^3/uL (2.7-7.7); Neutrophil % 55.6 % (47-70); Platelet Count 165 K/mm3 (150-450); RBC Distribution Width CV 14.2 % (11.6-14.6); RBC Distribution Width SD 49.7 fl (35.1-43.9); Red Blood Count 3.64 M/mm3 (4.2-5.4); White Blood Count 5.6 K/mm3 (4.4-11.0)
[2019-10-07 06:22] LABS: Anion Gap 5 (5-15); BUN 39 mg/dL (7-18); BUN/Creat Ratio 26.7 RATIO (10-20); Calcium,Total 7.5 mg/dL (8.5-10.1); Chloride 105 mmol/L (98-107); Creatinine, Serum 1.46 mg/dL (0.55-1.02); EST Glomerular Filtration Rate 39 mL/min (>60); Est Glom Filt Rate - Afr Amer 47 mL/min (>60); Estimated Creatinine Clearance 34.94 ml/min; Glucose 175 mg/dL (74-106); Potassium 4.5 mmol/L (3.5-5.1); Sodium Level 134 mmol/L (136-145)
[2019-10-07] MEDS: levoFLOXacin 500 MG Tablet PO (06:31)
[2019-10-07] MEDS: LORazepam 0.5 MG Tablet PO ×3 (06:31→19:38)
[2019-10-07 07:05] LABS: Bedside Glucose 149 mg/dL (70-110)
--- NOTE | 2019-10-07 09:15 | US_ITS ---
PROCEDURE: Ultrasound guided paracentesis. DATE OF EXAMINATION: October 07, 2019.. INDICATION: Female, 59 years old. Ascites. PHYSICIAN: Jakob Hirsch M.D. TECHNIQUE: The risks, benefits, and alternatives to the procedure were explained to the patient. The specific risks of bleeding, infection, and damage to bowel were detailed and accepted. Witnessed informed consent was obtained. The abdomen was ultrasonographically surveyed. An appropriate pocket of fluid was identified at the left lower quadrant. The skin were cleaned and prepped in the usual sterile fashion. Using ultrasound guidance, the peritoneal cavity was accessed with a 5-Malian paracentesis needle/catheter system. The trocar was removed. A total of 1900 ml of zafra-colored fluid were removed from the peritoneal cavity. The catheter was removed and a sterile dressing was applied. The procedure was well tolerated. US/Paracentesis with US IMPRESSION: Ultrasound guided paracentesis. Electronically Signed: Jakob Hirsch, at 14:08 EST , Service support ,
[2019-10-07] MEDS: Furosemide 40 MG/4 ML Vial IV ×2 (09:42→17:14)
[2019-10-07] MEDS: Spironolactone 25 MG Tablet PO ×2 (09:42→21:39)
[2019-10-07] MEDS: Lactulose 20 GM/30 ML UDC PO (09:42)
[2019-10-07] MEDS: 0.9% Saline Lock 10 ML Syringe IV ×2 (09:45→16:57)
--- NOTE | 2019-10-07 09:46 | CASEMGMT ---
Addendum entered by Roberta Rojas 10/07/19 11:23: [facility] updated this worker that pt is hesitant to sign with Palliative Care at this time but requested that [facility] speak with her again before pt discharges from [facility]. Original Note: Social Work Note SW received call from Duke at [facility] stating she has attempted to call pt multiple times but there has been no answer and not able to leave message. Duke asked this worker if this worker could assist with facilitating time that Duke can meet with pt. SW in to speak with pt. Pt states that she is having scans and tests done today and isn't sure if today would be a good time. SW asked pt if this worker can speak with RN to determine good time for Palliative to meet with pt. Pt agreeable. SW spoke with RN who states pt is having paracentesis done at 12:30pm today. SW asked RN if Palliative Care can speak with pt before procedure. RN agreeable. SW back in to speak with pt. SW updated pt that her procedure is not until 12:30pm and that Palliative Care could come before that time to speak with her. Pt asked this worker when am I suppose to sleep. SW informed pt that she is able to sleep before Palliative gets to [facility] and after they leave. SW informed pt that it is important to get pt linked up with Palliative care before she discharges from [facility] and Palliative has availability to meet with pt today. Pt states understanding, is agreeable to meeting with Palliative Care. WILBER placed a call back to Duke with [facility] and updated her that pt has paracentesis scheduled for 12:30pm today and Duke can come before that time to meet with pt. Duke states she will be over to [facility] soon. Roberta Rojas HOE WORKER, DISH MACHINE OPERATOR
[2019-10-07 10:11] VITALS: BP 122/54; PULSE 88; RESP 18; TEMP 36.8; O2SAT 95
[2019-10-07 12:05] LABS: Bedside Glucose 160 mg/dL (70-110)
--- NOTE | 2019-10-07 12:59 | CASEMGMT ---
Social Work Received phone call from Zaynab Maza at [facility] ([phone]). Pt has been approved for a home health aid through the passport program and a provider has been set up. Services are ready to begin when pt returns home for [employer] 3x week for 2 hours each day. Pt Passport Property Economist is Mariah Campo. SW to notify Zaynab with d/c date so [employer] can be started. EULALIO Burton
[2019-10-07 13:12] VITALS: BP 106/53; BP 115/56; BP 125/93; PULSE 88; PULSE 91; PULSE 92; RESP 18; O2SAT 94; O2SAT 95
--- NOTE | 2019-10-07 13:34 | NURSING ---
PT TOLERATED PARACENTESIS WELL. REPORT CALLED TO GARY HARKINS. PT BACK TO FLOOR VIA TRANSPORT.
[2019-10-07 15:36] LABS: Pathologist Comment/Body Fluid Reviewed
[2019-10-07 16:11] VITALS: BP 120/52; PULSE 88; RESP 16; TEMP 36.9; O2SAT 96
[2019-10-07] MEDS: Heparin Injection (Vial) 5,000 UNIT/ML VIAL 5000 UNIT SC ×2 (16:53→21:38)
[2019-10-07] MEDS: Insulin Lispro 100 UNIT/ML INSULN.PEN SC ×2 (16:54→21:39)
[2019-10-07 16:55] LABS: Bedside Glucose 165 mg/dL (70-110)
[2019-10-07 17:01] LABS: Bedside Glucose 221 mg/dL (70-110)
--- NOTE | 2019-10-07 18:42 | PCM.PROGNOTE ---
Patient Problems: Active and Suspected Problems (Last Updated 09/28/19 @ 18:43 by Xochitl Pittman MD) Pleural effusion, right (Acute) Dyspnea (Acute) Subjective: Patient was seen and examined today, she underwent an ultrasound-guided paracentesis and had 1900 cc of fluid removed from the peritoneal cavity. I elected not to have her undergo thoracentesis because I feel she is more than likely leaking across her diaphragm from her abdominal cavity and this is where the pleural effusion is originating from. Time of my examination today, patient is lethargic and sleepy but she replies appropriately to questions. - Physical Exam Vitals/I&O's: Vital Signs Temp Pulse Resp BP Pulse Ox 98.5 F 88 16 120/52 L 96 10/07/19 16:11 10/07/19 16:11 10/07/19 16:11 10/07/19 16:11 10/07/19 16:11 Oxygen Delivery Method [6] Room Air Oxygen Delivery Method [5] Room Air Oxygen Delivery Method [4] Room Air Oxygen Delivery Method [3] Room Air Oxygen Delivery Method [2] Room Air Oxygen Delivery Method [1 ( Room Air Initial Baseline)] Oxygen Delivery Method Room Air Weight: 76.3 kg Body Mass Index (BMI) 28.8 Finger Stick Blood Glucose 197 Intake and Output for Last 24 Hours 10/05/19 10/06/19 10/07/19 23:59 23:59 23:59 Intake Total 600 / 600 320 / 794 474 / 474 Output Total 350 / 450 100 / 100 Balance 600 / 600 -30 / 344 374 / 374 General: Alert, Oriented x3, Cooperative, No apparent distress, Well developed HEENT: Atraumatic, PERRLA, EOMI, Normocephalic Oral: Moist Mucosa Neck: Supple, Trachea Midline, Thyroid Normal Size and Texture Lungs: Clear to auscultation, No rhonchi, No wheeze, Diminished - Diminished breath sounds over the right lower lung field Cardiovascular: Regular rate, Regular Rhythm, Normal S1, Normal S2, No murmurs, No Ectopic Activity Abdomen: Bowel Sounds Present, Soft Extremities: No clubbing, No cyanosis, Capillary Refill Less than 3 Seconds Skin: No rashes, No breakdown Musculoskeletal: No Tenderness to Palpation of Joints or Extremities Neurological: Cranial nerves II-XII grossly intact, Neuro grossly intact, Sensory exam intact to light touch and pain Psych/Mental Status: Normal Affect, Appropriate, Alert and oriented to time, place, person, mood and affect Laboratory Results 10/04/19 06:33: POC Glucose 165 H 10/04/19 13:15: Fl Pathologist Comment Reviewed 10/06/19 21:23: POC Glucose 173 H 10/07/19 05:28: WBC 5.6, RBC 3.64 L, Hgb 11.7 L, Hct 34.6 L, MCV 95.1, MCH 32.1 H, MCHC 33.8, RDW Std Deviation 49.7 H, RDW Coeff of Bonnie 14.2, Plt Count 165, MPV 9.9, Immature Gran % (Auto) 0.500, Neut % (Auto) 55.6, Lymph % (Auto) 29.1, [place] % (Auto) 11.4 H, Eos % (Auto) 2.9, Baso % (Auto) 0.5, Absolute Neuts (auto) 3.1, Absolute Lymphs (auto) 1.63, Nucleated RBC % 0 10/07/19 05:28: Sodium 134 L, Potassium 4.5, Chloride 105, Carbon Dioxide 24.0, Anion Gap 5, BUN 39 H, Creatinine 1.46 H, Estim Creat Clear Calc 34.94, Est GFR (MDRD) Af Amer 47 L, Est GFR (MDRD) Non-Af 39 L, BUN/Creatinine Ratio 26.7 H, Glucose 175 H, Calcium 7.5 L 10/07/19 06:35: POC Glucose 149 H 10/07/19 11:51: POC Glucose 160 H 10/07/19 16:52: POC Glucose 221 H Current Medications Dextrose (D50w Syringe) 0 gm IV X1 PRN; Protocol PRN Reason: Hypoglycemia Furosemide (Lasix) 40 mg IV BID@1000,1800 [facility] Last Admin: 10/07/19 17:14 Dose: 40 mg Documented by: Glucagon () 1 mg IM .X1 PRN PRN Reason: Hypoglycemia Heparin Sodium (Porcine) (Heparin Na) 5,000 unit SC Q8 [facility] Last Admin: 10/07/19 16:53 Dose: 5,000 unit Documented by: Insulin Human Lispro (Humalog Kwikpen (Bkc)) 0 unit SC ACHS [facility]; Protocol Last Admin: 10/07/19 16:54 Dose: 2 units Documented by: Lactulose (Chronulac, Cephulac) 20 gm PO DAILY [facility] Last Admin: 10/07/19 09:42 Dose: 20 gm Documented by: Levofloxacin (Levaquin Tablet) 500 mg PO DAILY@0600 [facility] Stop: 10/08/19 06:01 Last Admin: 10/07/19 06:31 Dose: 500 mg Documented by: Lorazepam (Ativan) 0.5 mg PO Q6H PRN PRN PRN Reason: ANXIETY/AGITATION Last Admin: 10/07/19 12:20 Dose: 0.5 mg Documented by: Melatonin (Melatonin) 3 mg PO QHS [facility] Last Admin: 10/06/19 21:26 Dose: Not Given Documented by: Oxycodone HCl (Oxyir) 10 mg PO Q6H PRN PRN PRN Reason: Pain Score 6-10/10 Last Admin: 10/07/19 11:57 Dose: 10 mg Documented by: Promethazine HCl (Phenergan Tablet) 25 mg PO Q6H PRN PRN PRN Reason: NAUSEA Last Admin: 10/07/19 11:57 Dose: 25 mg Documented by: Sodium Chloride () 10 - 40 ml IV UD PRN PRN Reason: SALINE FLUSH Last Admin: 10/07/19 16:57 Dose: 10 ml Documented by: Spironolactone (Aldactone) 25 mg PO BID [facility] Last Admin: 10/07/19 09:42 Dose: 25 mg Documented by: Medical Necessity - Tobacco Use Smoking Status: Current some day smoker Tobacco Use: Cigarettes Assessment/Plan All Active Problems (Last Updated 09/28/19 @ 18:43 by Xochitl Pittman MD) Pleural effusion, right (Acute) Dyspnea (Acute) Peritonitis (acute) generalized (Acute) #1 right pleural effusion-again probably secondary to chronic ascites from nonalcoholic steatohepatitis with cirrhosis-patient's chest x-ray will be repeated tomorrow #2 chronic ascites secondary to cirrhosis from non-alcoholic steatohepatitis #3 type 2 diabetes-continue present treatment #4 hyperlipidemia #5 recent colitis #6 possible recent spontaneous bacterial peritonitis-continue Levaquin until course is finished Code Visit Inpatient E&M: 05808 Subs Hosp L2
[2019-10-07 22:00] VITALS: O2SAT 98
[2019-10-07 22:05] LABS: Bedside Glucose 264 mg/dL (70-110)
[2019-10-07 22:11] VITALS: BP 150/72; PULSE 90; RESP 18; TEMP 36.8; O2SAT 98
[2019-10-08 04:11] VITALS: BP 112/63; PULSE 89; RESP 16; TEMP 37.2; O2SAT 98
[2019-10-08] MEDS: levoFLOXacin 500 MG Tablet PO (05:06)
[2019-10-08] MEDS: Heparin Injection (Vial) 5,000 UNIT/ML VIAL 5000 UNIT SC (05:06)
[2019-10-08] MEDS: oxyCODONE 5 MG Tablet 10 MG PO ×2 (05:07→12:20)
[2019-10-08] MEDS: LORazepam 0.5 MG Tablet PO ×2 (05:07→12:21)
--- NOTE | 2019-10-08 05:55 | RAD_ITS ---
STUDY: X-RAY CHEST REASON FOR EXAM: Female, 59 years old. Pleural effusion. TECHNIQUE: Single AP portable view of the chest. COMPARISON: Comparison is made with prior study dated October 04, 2019. FINDINGS: Persistent pleural-parenchymal changes at the right lung base. There has been mild improvement in the aeration. The left lung is clear. Normal size heart. Normal mediastinum and tania. Normal visualized pulmonary arteries. There is atherosclerotic calcification of the aortic arch with tortuosity. Normal visualized thoracic spine. Normal visualized ribs, clavicles, and shoulders. There is no demonstrated abnormality of the visualized soft tissue structures of the upper abdomen. RAD/Chest PA and Lateral IMPRESSION: Persistent pleural parenchymal changes at the right lung base. There has been improved aeration as compared to prior study. Electronically Signed: Jakob Hirsch, at 14:32 EST , Service support ,
[2019-10-08] MEDS: Insulin Lispro 100 UNIT/ML INSULN.PEN SC ×2 (06:48→12:22)
[2019-10-08 06:56] LABS: Bedside Glucose 196 mg/dL (70-110)
[2019-10-08 09:00] VITALS: BP 134/66; PULSE 92; RESP 18; TEMP 37.2; O2SAT 98
--- NOTE | 2019-10-08 09:00 | CASEMGMT ---
Addendum entered by Roberta Rojas 10/08/19 11:29: Duke from [facility] updated this worker that pt signed with Hospice services. Plan: Home with Hospice Original Note: Social Work Note SW received call from Duke with [facility] asking if this worker can speak with pt regarding Duke coming to speak with pt again today. SW in to speak with pt. SW asked pt if Duke, who spoke with pt yesterday, is agreeable to Duke coming again today to speak with her. Pt states I don't want to talk to anyone today. SW informed pt that [facility] can follow up with pt at home if she wishes. Pt agreeable to this, again states she doesn't want to talk to anyone today but is agreeable to taking brochure for Palliative Care. SW provided [facility] brochure. When SW went back into pt's room to provide brochure, pt then stated she would be agreeable to speaking with [place] [facility]. SW explained to pt that that is what this worker was trying to ask her the first time if she would be agreeable to [facility] which is located in [place]. Pt again states she would be agreeable to speaking with Palliative Care from [place] but asks that it is not when her sister is at [facility]. WILBER placed a call back to [facility] and spoke with Duke. WILBER updated Duke that pt is now agreeable to speaking with her regarding Palliative Care. Duke states she will head over to [facility]. Roberta Rojas FINISH SANDER, MAT MACHINE OPERATOR
[2019-10-08] MEDS: Furosemide 40 MG/4 ML Vial IV (10:36)
[2019-10-08] MEDS: Lactulose 20 GM/30 ML UDC PO (10:36)
[2019-10-08] MEDS: Spironolactone 25 MG Tablet PO (10:36)
[2019-10-08 11:50] LABS: Bedside Glucose 191 mg/dL (70-110)
--- NOTE | 2019-10-08 14:40 | DCINST_ITS ---
- Discharge Diagnoses Current Active Problems: Current Active and Chronic Problems (Last Updated 09/28/19 @ 18:43 by Xochitl Pittman MD) Pleural effusion, right (Acute) Dyspnea (Acute) You will use the following diet at home:: No restrictions Your food should be the consistency of: Regular Your liquids should be the consistency of: Regular/Thin Discharge Activity: Return to Normal Activity Weight Bearing Status: Full weight bearing Allergies/Adverse Reactions: Allergies clindamycin [From Cleocin] Allergy (Verified 09/28/19 14:12) Itching Sulfa (Sulfonamide Antibiotics) Allergy (Verified 09/28/19 14:12) Itching ondansetron [From Zofran (as hydrochloride)] Adverse Reaction (Verified 09/28/19 14:12) Nausea Medications to take at Discharge proMETHazine tablet [Phenergan tablet] 25 mg PO Q6H PRN PRN 06/11/18 Furosemide [Lasix] 40 mg PO DAILY #30 tab 10/02/19 Lactulose [Chronulac] 20 gm PO DAILY #30 udc 10/02/19 Oxycodone [Oxyir] 5 mg PO BID 3 Days #6 tab 10/02/19 Spironolactone [Aldactone] 25 mg PO DAILY #30 tab 10/02/19 Primary Care Physician: Froilan Rosenthal Chi, MD [Primary Care Provider] - Test Results: Test results from this visit will be discussed in further detail at your follow- up appointment, if applicable. Please Follow Up With: Ab Triplett NP, for Dr Stanford Please Follow Up With: Hospice as directed
[2019-10-08 14:43] VITALS: BP 130/74; PULSE 70; RESP 18; TEMP 36.9; O2SAT 98
--- NOTE | 2019-10-08 15:14 | CASEMGMT ---
Social Work Note WILBER updated that pt is discharging home and usually utilizes [facility] transportation. WILBER met with pt. Pt confirms that she uses [facility] transportation and states she has no number to call them. WILBER offered to call [facility] for pt, pt agreeable. WILBER asked pt if she has someone who is able to transport in the event [facility] is not able to provide transportation and pt denied. WILBER placed a call to [facility]. [facility] is not available today to provide transportation. WILBER placed a call to [facility] and arranged transportation for around 3:10pm. Transportation form complete and given to sales record clerk, copy on pt's chart. WILBER updated pt and RN that transportation has been arranged and that it is arranged through [facility] as [facility] was not available to transport pt today. WILBER placed a call to Zaynab Maza at [facility] and updated her that pt has been discharged home. WILBER placed a call to Mariah Campo and left her a message informing her pt has been discharged home. WILBER faxed discharge paperwork to [facility]. [place] to fax paperwork to [facility]. RN to call [facility] and do nurse to nurse report. Plan: Home with resumption of services through [facility] and with Hospice services Roberta Rojas CASE CHECKER, REHANGER
--- NOTE | 2019-10-09 15:54 | CASEMGMT ---
GARY HOBBS Discharge Follow-up Phone Call: JADE: Vanda Strata: 4 Call Date: 10/09/19 Discharge Date: 10/08/19 Time of Call: 1550 Duration: 3 min Admitting Diagnosis: Right Pleural Effusion GARY HOBBS completed follow-up phone call after recent hospitalization. Patient currently at [facility] getting blood work completed and had appt with Dr. Pérez. Patient said nurse is coming at 5pm from [facility]. Patient is waiting for [facility] to pick her up from appt. GARY HOBBS instructed patient to called [facility] to check on transport. If not to ask someone at [facility] to help setup transport. Patient had no questions regarding discharge instructions.
--- NOTE | 2019-10-10 09:45 | DS.PCM_ITS ---
Discharge Date and Diagnosis Date of Admission: 10/03/19 Date of Discharge: 10/08/19 - Primary Discharge Diagnosis #1 right pleural effusion-again probably secondary to chronic ascites from nonalcoholic steatohepatitis with cirrhosis #2 chronic ascites secondary to cirrhosis from non-alcoholic steatohepatitis #3 type 2 diabetes #4 hyperlipidemia #5 recent colitis #6 recent spontaneous bacterial peritonitis - Secondary Discharge Diagnosis Chronic Problems (Last Updated 09/28/19 @ 18:43 by Xochitl Pittman MD) Liver cirrhosis (Chronic) Hyperlipidemia (Chronic) Anxiety (Chronic) Depression (Chronic) 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 Luke. Abnormal EKG (Chronic) ekg's indicating possible previous inferior infarct HTN (hypertension) (Chronic) Debility (Chronic) Type II diabetes mellitus (Chronic) Peripheral neuropathy (Chronic) Tobacco use disorder (Chronic) Obesity (Chronic) Hospital Course and Treatment Operations: None, - - left tibiocalcaneal and talonavicular arthrodesis Procedures: Paracentesis, Thoracentesis Summary of Care Provided: The patient is a 59 year old F who was seen in the emergency room at [facility] with chief complaint of chest tightness and shortness of breath. She had been discharged from the hospital the day prior for treatment of colitis and ascites. Patient has chronic ascites from cirrhosis from nonalcoholic steatohepatitis. Work-up in the emergency room included a chest x- ray which showed a large right-sided pleural effusion. Patient was admitted to [place] [address], she underwent a paracentesis but the day after the paracentesis, it appeared that the fluid had returned. Patient then underwent a paracentesis, chest x-ray the day after the paracentesis showed no return of her right pleural effusion. Patient was seen in [facility] and she agreed to sign up with hospice services as an outpatient. On 10/08/2019, patient was seen and examined: On examination she appeared in good health and spirits. Vital signs as documented. Skin warm and dry and without overt rashes. Neck without JVD. Lungs clear. Heart exam notable for regular rhythm, normal sounds and absence of murmurs, rubs or gallops. Abdomen unremarkable and without evidence of organomegaly, masses, or abdominal aortic enlargement. Extremities nonedematous. Neuro: Cranial nerves II through XII are grossly intact, no focal motor deficits were noted, sensation to light touch and pinprick is intact. Psych: Patient is alert and oriented x3, she does not appear anxious or depressed On 10/08/2019, patient was seen and examined and felt to be in stable condition for discharge home - Physical Exam Vitals/I&O's: Vital Signs Temp Pulse Resp BP Pulse Ox 98.5 F 70 18 130/74 H 98 10/08/19 14:43 10/08/19 14:43 10/08/19 14:43 10/08/19 14:43 10/08/19 14:43 Oxygen Delivery Method [6] Room Air Oxygen Delivery Method [5] Room Air Oxygen Delivery Method [4] Room Air Oxygen Delivery Method [3] Room Air Oxygen Delivery Method [2] Room Air Oxygen Delivery Method [1 ( Room Air Initial Baseline)] Oxygen Delivery Method Room Air Weight: 76.3 kg Body Mass Index (BMI) 28.8 Finger Stick Blood Glucose 197 Intake and Output for Last 24 Hours 10/08/19 10/09/19 10/10/19 23:59 23:59 23:59 Intake Total 2300 / 2300 Balance 2300 / 2300 Discharge Activity: Return to Normal Activity Weight Bearing Status: Full weight bearing Home Medications: Medications to take at Discharge proMETHazine tablet [Phenergan tablet] 25 mg PO Q6H PRN PRN 06/11/18 Furosemide [Lasix] 40 mg PO DAILY #30 tab 10/02/19 Lactulose [Chronulac] 20 gm PO DAILY #30 udc 10/02/19 Oxycodone [Oxyir] 5 mg PO BID 3 Days #6 tab 10/02/19 Spironolactone [Aldactone] 25 mg PO DAILY #30 tab 10/02/19 Primary Care Physician: Froilan Rosenthal Chi, MD [Primary Care Provider] - Please Follow Up With: Ab Triplett NP, for Dr Stanford Please Follow Up With: Hospice as directed Disposition: Home with Hospice Minutes spent on discharge:: 31 Patient Condition:: Stable Medical Necessity - Tobacco Use Smoking Status: Current some day smoker Tobacco Use: Cigarettes Meaningful Use Info Meaningful Use Diagnoses (Choose all that apply): None applicable Code Visit Inpatient E&M: 22440 Disch Hosp
== END 2019-10-08 15:13 | disposition hospice, home (50) | DRG 432 ==
LOC: ED 20:02 → MS3 22:44
PROVIDERS: Internal Medicine; Admitting Provider Family Medicine; Emergency Provider Emergency Medicine; Family Provider Family Medicine Geriatric Medicine; PCP Family Medicine Geriatric Medicine; Referring Provider Family Medicine; Visit Provider Internal Medicine
DX: K74.60 Unspecified cirrhosis of liver (principal); K65.2 Spontaneous bacterial peritonitis; R18.8 Other ascites; J91.8 Pleural effusion in other conditions classified elsewhere; K75.81 Nonalcoholic steatohepatitis (NASH); E11.40 Type 2 diabetes mellitus with diabetic neuropathy, unspecified; G89.4 Chronic pain syndrome; F17.210 Nicotine dependence, cigarettes, uncomplicated; E78.5 Hyperlipidemia, unspecified; I10 Essential (primary) hypertension; Z87.19 Personal history of other diseases of the digestive system; Z89.432 Acquired absence of left foot; F32.9 Major depressive disorder, single episode, unspecified; R53.81 Other malaise; E66.9 Obesity, unspecified; Z68.28 Body mass index [BMI] 28.0-28.9, adult
CPT/HCPCS: 32555; 36415; 49083; 71046; 71250; 80048; 80053; 82945; 82962; 83615; 83735; 83880; 84157; 84484; 85025; 85610; 85730; 88108; 88305; 88313; 89050; 93005; 97162; 97166; 97530; 97535; 97802; 99285; 99406; J7030; A4216; J1940

== ENCOUNTER → 2019-10-09 14:35 | Outpatient (CLI) | payer MEDICARE, MEDICAID, SELFPAY ==
[2019-10-04 15:15] VITALS: BMI 30.7
[2019-10-09 17:57] LABS: International Normalized Ratio 1.2; Partial Thromboplast Time 32.8 Seconds (24.1-36.2); Prothrombin Time (Protime)PT. 14.5 SECONDS (11.7-14.9)
[2019-10-11 17:08] LABS: AFP, Tumor Marker 6.3 ng/mL (0.0-8.3); Anti-Smooth Muscle ABS 21 Units (0-19)
[2019-10-17 16:07] LABS: Alpha Antitrypsin Serum 273 mg/dL (101-187)
[2019-10-18 16:39] LABS: ANTINUCLEAR ANTIBODIES DIRECT Negative (Negative); Anti-Mitochondrial AB <20.0 Units (0.0-20.0)
== END ==
PROVIDERS: Family Provider Family Medicine Geriatric Medicine; PCP Family Medicine Geriatric Medicine; Referring Provider Internal Medicine Gastroenterology; Visit Provider Internal Medicine Gastroenterology
DX: K75.9 Inflammatory liver disease, unspecified (principal); K74.60 Unspecified cirrhosis of liver
CPT/HCPCS: 36415; 82103; 82104; 82105; 83516; 85610; 85730; 86038

== ENCOUNTER → 2019-10-21 14:52 | Outpatient (CLI) | payer SELFPAY ==
[2019-10-04 15:15] VITALS: BMI 30.7
--- NOTE | 2019-10-21 14:55 | US_ITS ---
PROCEDURE: ULTRASOUND GUIDED PARACENTESIS. DATE OF EXAMINATION: 10/21/2019. INDICATION: Ascites. The risks, benefits, and alternatives to the procedure were explained to the patient. The specific risks of bleeding, infection, and damage to bowel were detailed and accepted. Witnessed informed consent was obtained. The abdomen was ultrasonographically surveyed. An appropriate pocket of fluid was identified at the left lower quadrant. The skin were cleaned and prepped in the usual sterile fashion. Using ultrasound guidance, the peritoneal cavity was accessed with a 5-Georgian paracentesis needle/catheter system. The trocar was removed. A total of 3650 ml of clear ascites were removed from the peritoneal cavity. The catheter was removed and a sterile dressing was applied. The procedure was well tolerated. US/Paracentesis with US IMPRESSION: Successful sonographic guided paracentesis with total of 3650 cc of ascites obtained with no complication. Electronically Signed: Noam Glynn MD at 20:56 EST Tel [phone], Service support ,
[2019-10-21 15:06] VITALS: BP 138/59; BP 140/72; BP 146/62; BP 161/56; PULSE 89; PULSE 90; RESP 16; O2SAT 92; O2SAT 93; O2SAT 94
== END ==
PROVIDERS: Family Provider Family Medicine Geriatric Medicine; PCP Family Medicine Geriatric Medicine
DX: K74.60 Unspecified cirrhosis of liver (principal)
CPT/HCPCS: 49083

== ENCOUNTER → 2019-11-05 12:18 | Outpatient (CLI) | payer SELFPAY ==
[2019-10-04 15:15] VITALS: BMI 30.7
--- NOTE | 2019-11-05 12:24 | US_ITS ---
PROCEDURE: Ultrasound guided paracentesis. DATE OF EXAMINATION: November 05, 2019. INDICATION: Female, 59 years old. Ascites. PHYSICIAN: Jakob Hirsch M.D. TECHNIQUE: The risks, benefits, and alternatives to the procedure were explained to the patient. The specific risks of bleeding, infection, and damage to bowel were detailed and accepted. Witnessed informed consent was obtained. The abdomen was ultrasonographically surveyed. An appropriate pocket of fluid was identified at the left lower quadrant. The skin were cleaned and prepped in the usual sterile fashion. Using ultrasound guidance, the peritoneal cavity was accessed with a 5-Vietnamese paracentesis needle/catheter system. The trocar was removed. A total of 5000 ml of zafar-colored fluid were removed from the peritoneal cavity. The catheter was removed and a sterile dressing was applied. The procedure was well tolerated. US/Paracentesis with US IMPRESSION: Ultrasound guided paracentesis. Electronically Signed: Jakob Hirsch, at 14:00 EST , Service support ,
[2019-11-05 13:10] VITALS: BP 143/54; BP 145/58; BP 175/55; BP 179/59; PULSE 92; PULSE 93; RESP 16; RESP 18; O2SAT 91; O2SAT 92; O2SAT 95
--- NOTE | 2019-11-05 15:05 | NURSING ---
UPON PT'S ARRIVAL, IT WAS DISCOVERED THAT PT HAD MULTIPLE BED BUGS CRAWLING ON HER. PT WAS INITIALLY UNAWARE. 2 WERE KILLED, ONE WAS PLACED IN A CONTAINER TO SHOW EVS. PT'S CLOTHING WAS BAGGED IN PERSONAL BELONGINGS BAGS AND THEN PLACED IN LARGER PLASTIC BAG. PT WAS GIVEN BATHWIPES AND PAPER SCRUBS TO WEAR HOME WELL MULTIPLE BLANKETS. PT EXTREMELY DISCOURAGED ABOUT SITUATION. GARY FELIZ INFORMED HOSPICE OF PATIENT'S CONDITION. HOSPICE INFORMED PT'S TRANSPORT TEAM OF BED BUGS WELL. GARY FELIZ TOLD PT THAT SHE NEEDS TO HAVE EVERYTHING PUT IN THE DRYER ON HIGH HEAT TO KILL THE BED BUGS. PT DID NOT HAVE MANY BITES, IF ANY, HER SKIN CAN HAVE AREAS THAT LOOK LIKE BITES FROM SCRATCHING AND SHE SOMETIMES SCRATCHES DUE TO HER CIRRHOSIS. PT JUST PUT HER CLOTHES ON FROM HER BAG OF RECENTLY WASHED LAUNDRY FROM THE LAUNDROMAT. PT WAS ENCOURAGED TO CONTACT HER [place] IMMEDIATELY OF CIRCUMSTANCES.
== END ==
PROVIDERS: Family Provider Family Medicine Geriatric Medicine; PCP Family Medicine Geriatric Medicine
DX: R18.8 Other ascites (principal)
CPT/HCPCS: 49083